=== PATIENT | male | born 1955 | race Caucasian/White ===

== ENCOUNTER 2017-10-21 19:54 | Inpatient (IN) | payer MEDICARE, OTHER ==
[~2017-10-21] VITALS: Ht 175.3 cm; Wt 121.0 kg
[2017-10-21 21:30] VITALS: BP 131/62; PULSE 86; RESP 18; TEMP 97.7; O2SAT 99
[2017-10-21] MEDS ORDERED: SODIUM CHLORIDE 0.9% FLUSH 10 ML FLUSH IV FLUSH PRN (22:00)
[2017-10-21] MEDS ORDERED: DEXTROSE 50% IN WATER 50 ML VIAL(D50) IV PUSH PRN ×2 (22:00→23:15)
[2017-10-21] MEDS ORDERED: GLUCAGON 1 MG/ML VIAL OTHER PRN ×2 (22:00→23:15)
[2017-10-21] MEDS ORDERED: SODIUM CHLOR 0.9% 250 ML INJ 250 ML IV ONE (22:00)
[2017-10-21 22:13] VITALS: PULSE 81
[2017-10-21] MEDS ORDERED: ONDANSETRON HCL 4 MG/2 ML VIAL IVP PRN (22:15)
[2017-10-21] MEDS ORDERED: NALOXONE HCL 0.4 MG/ML AMP IV PUSH PRN (22:15)
[2017-10-21] MEDS ORDERED: METF500T PO (22:30)
[2017-10-21] MEDS ORDERED: CEPH500C PO (22:30)
[2017-10-21] MEDS ORDERED: HUMIBIDDM PO (22:44)
[2017-10-21] MEDS ORDERED: DIPH25CA PO (22:44)
[2017-10-21] MEDS ORDERED: FISHCAP4 PO (22:44)
[2017-10-21] MEDS ORDERED: SIMV20TA PO (22:44)
[2017-10-21] MEDS ORDERED: COLA100C5 PO (22:44)
[2017-10-21] MEDS ORDERED: ASPI-147 PO (22:44)
[2017-10-21] MEDS ORDERED: TAMS0.4C4 (22:44)
[2017-10-21] MEDS ORDERED: LOSA25TA PO (22:44)
[2017-10-21] MEDS ORDERED: GLIP5TAB8 PO (22:44)
[2017-10-21] MEDS ORDERED: CENTCHW4 CHEW (22:44)
[2017-10-21] MEDS ORDERED: SITA50 PO (22:44)
[2017-10-21] MEDS ORDERED: ALEV220T14 PO (22:44)
[2017-10-21 22:59] LABS: HEMATOCRIT 21.1 % (39.0-51.0); HEMOGLOBIN 7.5 GM/DL (13.0-17.0)
[2017-10-21] MEDS ORDERED: ENALAPRILAT 2.5 MG/2 ML VIAL IV PUSH PRN (23:15)
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
[2017-10-21 23:21] LABS: TROPONIN I 7.5 NG/ML (0.02-0.05)
[2017-10-21] MEDS: PANTOPRAZOLE INJ 80 MG in SODIUM CHLORIDE 0.9% INJ 100 ML IV SCH (23:49)
[2017-10-22] VITALS (27 sets, daily range): BP systolic 108–139; BP diastolic 48–81; PULSE 76–93; RESP 16–22; TEMP 97.7–98.7; O2SAT 95–99
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
[2017-10-22] MEDS: FUROSEMIDE 20 MG/2 ML VIAL IV PUSH PRN ×2 (03:57→07:55)
[2017-10-22 04:53] LABS: ALBUMIN 2.9 GM/DL (3.4-5.0); ALKALINE PHOSPHATASE 47 U/L (45-117); ALT (GPT) 20 U/L (12-78); AST (GOT) 42 U/L (15-37); BLOOD UREA NITROGEN 17 MG/DL (7-18); CALCIUM 9.6 MG/DL (8.5-10.1); CHLORIDE 87 MEQ/L (98-107); CREATININE 0.62 MG/DL (0.60-1.30); GLOMERULAR FILTRATION RATE 132 ML/MIN (>89); GLUCOSE,RANDOM 120 MG/DL (74-106); TOTAL BILIRUBIN ADULT 0.6 MG/DL (0.2-1.0); TOTAL PROTEIN 5.7 GM/DL (6.4-8.2)
[2017-10-22 04:59] LABS: SODIUM (NA) 123 MEQ/L (136-145)
[2017-10-22] MEDS: INSULIN ASPART SUPPLEMENTAL SCALE SQ SCH ×4 (08:00→21:37)
[2017-10-22] MEDS: PANTOPRAZOLE INJ 80 MG in SODIUM CHLORIDE 0.9% INJ 100 ML IV SCH ×2 (08:12→19:37)
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
[2017-10-22] MEDS: SODIUM CHLORIDE 0.9% FLUSH 10 ML FLUSH IV FLUSH SCH ×2 (09:00→21:36)
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
[2017-10-22 15:13] LABS: AUTOMATED NEUTROPHIL # 8.1 TH/MM3 (1.8-7.7); BASOPHIL % 0.3 % (0.0-2.0); EOSINOPHIL # 0.2 TH/MM3 (0-0.4); EOSINOPHIL % 2.1 % (0.0-4.0); HEMATOCRIT 27.9 % (39.0-51.0); HEMOGLOBIN 9.8 GM/DL (13.0-17.0); LYMPH % 21.1 % (9.0-44.0); LYMPHOCYTE # 2.5 TH/MM3 (1.0-4.8); MEAN CELL VOLUME 84.6 FL (80.0-100.0); MEAN CORPUSCULAR HEMOGLOBIN 29.8 PG (27.0-34.0); MEAN CORPUSCULAR HGB CONC 35.2 % (32.0-36.0); MEAN PLATELET VOLUME 8.9 FL (7.0-11.0); MONO % 8.6 % (0.0-8.0); NEUT % 67.9 % (16.0-70.0); PLATELET COUNT 207 TH/MM3 (150-450); RED CELL DISTRIBUTION WIDTH 13.4 % (11.6-17.2)
--- NOTE | 2017-10-22 16:09 | EKG ---
Date Performed: 10/22/2017 Time Performed: 04:58:32 PTAGE: 62 years EKG: Sinus arrhythmia. Left axis deviation RBBB with left anterior fascicular block Low QRS volt ages in limb leads Abnormal ECG Since the prior tracing, there has been no significant change PREVIOUS TRACING : 10/21/2017 22.31 DOCTOR: Deborah Ortega Interpretating Date/Time 10/22/2017 16:08:07
--- NOTE | 2017-10-22 16:09 | EKG ---
Date Performed: 10/21/2017 Time Performed: 22:31:06 PTAGE: 62 years EKG: Sinus rhythm MARKED RIGHT AXIS DEVIATION RIGHT BUNDLE BRANCH BLOCK ABNORMAL ECG Since the prior tracing, there negro s been no significant change NO PREVIOUS TRACING DOCTOR: Deborah Ortega Interpretating Date/Time 10/22/2017 16:07:56
[2017-10-22] MEDS: MORPHINE SULFATE 4 MG/ML INJ IV PUSH PRN (21:38)
[2017-10-23] VITALS (12 sets, daily range): BP systolic 123–143; BP diastolic 44–78; PULSE 70–106; RESP 18–20; TEMP 97.3–98.3; O2SAT 94–98
[2017-10-23 00:39] LABS: HEMATOCRIT 28.2 % (39.0-51.0); HEMOGLOBIN 10.1 GM/DL (13.0-17.0)
[2017-10-23] MEDS: PANTOPRAZOLE INJ 80 MG in SODIUM CHLORIDE 0.9% INJ 100 ML IV SCH ×2 (05:07→15:40)
[2017-10-23 05:15] LABS: BICARBONATE 30.2 MEQ/L (21.0-32.0); CALCIUM 8.3 MG/DL (8.5-10.1); CREATININE 0.7 MG/DL (0.60-1.30); MAGNESIUM 1.7 MG/DL (1.5-2.5); PHOSPHORUS 3.5 MG/DL (2.5-4.9)
[2017-10-23] MEDS: INSULIN ASPART SUPPLEMENTAL SCALE SQ SCH ×4 (08:00→21:01)
--- NOTE | 2017-10-23 08:25 | PD.CARD.PN ---
Subjective Subjective Remarks RN at bedside. No further bleeding and epigastric pain is improving. Patient denies any chest pain, shortness breath, or palpitations. Objective Medications Current Medications Medications (Trade) Dose Ordered Sig/Ada Route Start Time Stop Time Status Last Admin (NS Flush) 2 ml UNSCH PRN IV FLUSH 10/21/17 22:00 (NS Flush) 2 ml BID IV FLUSH 10/22/17 09:00 10/22/17 21:36 Pantoprazole Sodium 80 mg/ Sodium Chloride 100 ml @ 10 mls/hr Q10H IV 10/22/17 00:00 10/23/17 05:07 (Zofran Inj) 4 mg Q6H PRN IVP 10/21/17 22:15 (Narcan Inj) 0.4 mg UNSCH PRN IV PUSH 10/21/17 22:15 (D50w (Vial) Inj) 50 ml UNSCH PRN IV PUSH 10/21/17 23:15 (Glucagon Inj) 1 mg UNSCH PRN OTHER 10/21/17 23:15 (NovoLOG SUPPLEMENTAL SCALE) 1 ACHS SLIDING SCALE SQ 10/22/17 08:00 10/22/17 21:37 (Morphine Inj) 4 mg Q3H PRN IV PUSH 10/21/17 23:15 10/22/17 21:38 (Vasotec Inj) 2.5 mg Q6H PRN IV PUSH 10/21/17 23:15 Vital Signs / I&O Vital Signs Date Time Temp Pulse Resp B/P (MAP) Pulse Ox O2 Delivery O2 Flow Rate FiO2 10/23/17 04:00 97.8 91 20 141/75 (97) 94 10/23/17 03:45 94 Room Air 10/23/17 03:30 84 10/23/17 00:00 98.1 92 20 123/44 (70) 95 10/22/17 23:00 94 Room Air 10/22/17 23:00 84 10/22/17 22:38 95 21 10/22/17 22:00 18 10/22/17 20:00 98.4 92 20 114/48 (70) 95 10/22/17 19:00 84 10/22/17 15:07 99 Nasal Cannula 2.00 10/22/17 15:06 84 10/22/17 15:05 97.7 84 22 126/62 (83) 99 10/22/17 11:00 99 Nasal Cannula 2.00 10/22/17 11:00 93 10/22/17 11:00 97.9 93 22 111/56 (74) 99 I/O 10/22/17 10/22/17 10/22/17 10/23/17 10/23/17 10/23/17 06:59 14:59 22:59 06:59 14:59 22:59 Intake Total 470 ml 830 ml 1250 ml 458 ml Output Total 700 ml 2925 ml 2500 ml Balance -230 ml 830 ml -1675 ml -2042 ml Intake Oral 0 ml 1000 ml 240 ml IV Total 70 ml 250 ml 218 ml Packed Cells 400 ml 800 ml Blood Product IV Normal Saline Flush 30 ml Output Urine Total 700 ml 2925 ml 2500 ml # Voids 1 5 # Bowel Movements 0 0 1 Physical Exam GENERAL: Well-developed well-nourished. In no acute distress. NECK: No carotid bruits. No JVD. CARDIOVASCULAR: Regular rate and rhythm. No murmur appreciated. RESPIRATORY: No accessory muscle use. Clear to auscultation. Breath sounds equal bilaterally. MUSCULOSKELETAL: Right ankle with clean dressing. No edema. NEUROLOGICAL: Awake and alert. Normal speech. Laboratory Laboratory Tests Test 10/22/17 14:35 10/23/17 00:00 10/23/17 03:34 White Blood Count 12.0 TH/MM3 Red Blood Count 3.30 MIL/MM3 Hemoglobin 9.8 GM/DL 10.1 GM/DL Hematocrit 27.9 % 28.2 % Mean Corpuscular Volume 84.6 FL Mean Corpuscular Hemoglobin 29.8 PG Mean Corpuscular Hemoglobin Concent 35.2 % Red Cell Distribution Width 13.4 % Platelet Count 207 TH/MM3 Mean Platelet Volume 8.9 FL Neutrophils (%) (Auto) 67.9 % Lymphocytes (%) (Auto) 21.1 % Monocytes (%) (Auto) 8.6 % Eosinophils (%) (Auto) 2.1 % Basophils (%) (Auto) 0.3 % Neutrophils # (Auto) 8.1 TH/MM3 Lymphocytes # (Auto) 2.5 TH/MM3 Monocytes # (Auto) 1.0 TH/MM3 Eosinophils # (Auto) 0.2 TH/MM3 Basophils # (Auto) 0.0 TH/MM3 CBC Comment DIFF FINAL Differential Comment Blood Urea Nitrogen 10 MG/DL Creatinine 0.70 MG/DL Random Glucose 134 MG/DL Calcium Level 8.3 MG/DL Phosphorus Level 3.5 MG/DL Magnesium Level 1.7 MG/DL Sodium Level 132 MEQ/L Potassium Level 3.4 MEQ/L Chloride Level 95 MEQ/L Carbon Dioxide Level 30.2 MEQ/L Anion Gap 7 MEQ/L Estimat Glomerular Filtration Rate 115 ML/MIN Assessment and Plan Assessment and Plan 62-year-old male with a past medical history significant for coronary artery disease (status post cardiac catheterization at [facility] 3 -6 months ago with finding of obstructive coronary disease that was not amenable to intervention), diabetes mellitus, hyperlipidemia, hypertension and history of colon cancer. The patient states he presented to the hospital because his "GI track was on fire", epigastric pain, hematemesis. NSTEMI: significant trop elevation in setting of severe anemia and GIB. No point in proceeding with LHC until after the endoscopy since we know he has obstructive CAD but would not be a candidate for CABG or PCI until bleeding source identified. 2d echo probable LHC once bleeding issue resolved. Epigastric pain/hematemesis/anemia: Transfused 3 units PRBCs and hemoglobin improved to 10. GI on board. His hemoglobin is greater than 9 and no chest pain, patient is cleared from cardiology perspective to proceed with endoscopy. CAD: Sounds obstructive by history, records pending. Hold aspirin with bleeding. Continue statin. Luis Potter Oct 23, 2017 08:25
--- NOTE | 2017-10-23 08:55 | HHI.CCPN ---
Subjective Remarks/Hospital Course 62-year-old male with a past medical history significant for coronary artery disease (status post cardiac catheterization at [facility] 3 months ago with finding of obstructive coronary disease without possibility of stent intervention), and other comorbidities including diabetes mellitus, hyperlipidemia,hypertension and history of colon cancer presents today for evaluation of epigastric. The patient describes the pain as a burning that started in his epigastrium and travels up the center of his chest. He denies any chest pressure. He does endorse shortness of breath and diaphoresis today. He however tells me that his major complaint was gastrointestinal discomfort including nausea with coffee ground emesis and dark, tarry stools for approximately 2 days. Positive fever/chills. Denies weakness/lightheadedness. His initial hemoglobin was found to be 7.5 and troponin 2.17. He was initially admitted to medical surgical floor with telemetry, however his follow- up troponin has increased to 7.5, and due to complexity of the condition including gastrointestinal bleed, severe anemia, and significantly elevated troponins, the patient is transferred to critical care service. Subjective: 10/23: No acute events overnight patient denies chest pain greater than 24 hours. No hematemesis or melena during the night. Patient scheduled for EGD this afternoon. Patient tolerated yesterday a clear liquid diet but remains nothing by mouth for procedure today. Patient upon admission was noted to be hyponatremic, sodium level improved in the last 24 hours, at a calculated 0.5 mEq per hour. Sodium level now 132, from 123. Objective Vital Signs Date Time Temp Pulse Resp B/P (MAP) Pulse Ox O2 Delivery O2 Flow Rate FiO2 10/23/17 04:00 97.8 91 20 141/75 (97) 94 10/23/17 03:45 Room Air 10/22/17 22:38 21 10/22/17 15:07 2.00 Intake and Output 10/23/17 10/23/17 10/24/17 08:00 16:00 00:00 Intake Total 458 ml Output Total 2500 ml Balance -2042 ml Result Diagram: 10/23/17 0000 10/23/17 0334 Objective Remarks GENERAL: This is a well-developed well-nourished obese male, in no apparent distress SKIN: Warm and dry. HEAD: Normocephalic. EYES: No scleral icterus. No injection or drainage. NECK: Supple, trachea midline. No JVD or lymphadenopathy. CARDIOVASCULAR: Regular rate and rhythm without murmurs, gallops, or rubs. RESPIRATORY: Breath sounds equal bilaterally. No accessory muscle use. GASTROINTESTINAL: Abdomen soft, non-tender, protuberant nondistended. MUSCULOSKELETAL: No cyanosis, or edema.Raudel bandage right lower extremity. Patient receiving wound care at home BACK: Nontender without obvious deformity. NEURO EXAM: GCS: 15 Mental Status: The patient is alert and oriented to person, place, and time with normal speech. Procedures 10/23-EGD A/P Assessment and Plan Upper GI bleed - hematemesis and H&H of 7.5/21.5 - Protonix drip - Gastroenterology consultation - Serial H&H - Transfuse 3 units of PRBCs with the goal to keep hemoglobin close to 10 at the patient with active GI bleed and symptomatic coronary artery disease NSTEMI - Known history of obstructive coronary artery disease from the cardiac catheterization at [facility] 3 months ago - see records in chart - Initial troponin 2.17 - Follow-up troponin 7.5 - EKG significant for sinus tachycardia with right bundle branch block - Unable to initiate anticoagulation or antiplatelet therapy due to active GI bleed and severe anemia - Transfuse PRBCs with the Goal hemoglobin 10 - 2-D echo - Cardiology consultation- Dr. Francisco Diabetes mellitus - Hold metformin while in the ICU - Insulin sliding scale Electrolyte derangement - Hyponatremia initial admission sodium level 123, now increased to 132 in 24 hours, continue to monitor Hypertension - Vasotec when necessary DVT GI prophylaxis - Teds SCDs - No pharmacological DVT prophylaxis due to GI bleed - Protonix drip Critical Care: Level II follow-up Plan transfer to CICU when bed available. Plan transfer to [facility] Hospitalist Physician Evita Blake MD Oct 23, 2017 08:55
[2017-10-23] MEDS: SODIUM CHLORIDE 0.9% FLUSH 10 ML FLUSH IV FLUSH SCH ×2 (09:00→21:00)
[2017-10-23] MEDS ORDERED: LACTATED RINGER'S 1000 ML INJ 1,000 ML IV ONE (12:00)
[2017-10-23] MEDS ORDERED: LIDOCAINE HCL 1% PF 5 ML SYRINGE OTHER ONE (12:00)
[2017-10-23] MEDS ORDERED: PROPOFOL 200 MG/20 ML AMP IV ONE (12:00)
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
[2017-10-23 14:40] LABS: HEMATOCRIT 31.2 % (39.0-51.0); HEMOGLOBIN 10.8 GM/DL (13.0-17.0)
--- NOTE | 2017-10-23 18:45 | GIPROC ---
[facility] [address] [facility]. [facility], [address] EGD PROCEDURE REPORT EXAM DATE: 10/23/2017 PATIENT NAME: Mateus Freed MR #: [id number] BIRTHDATE: 1955 ATTENDING: Sulma Kessler MD ORDER #: [id number] ENGINEERING EXECUTIVE: Alex Ivy and Lea Cuevas STATUS: inpatient INDICATIONS: The patient is a 62 yr old male here for an EGD due to anemia, gi bleeding PROCEDURE PERFORMED: EGD w/ biopsy MEDICATIONS: None and Per Anesthesia. TOPICAL ANESTHETIC: none CONSENT: The patient understands the risks and benefits of the procedure and understands that these risks include, but are not limited to: sedation, allergic reaction, infection, perforation and/or bleeding. Alternative means of evaluation and treatment include, among others: physical exam, x-rays, and/or surgical intervention. The patient elects to proceed with this endoscopic procedure. medical equipment was checked for proper function. Hand hygiene and appropriate measures for infection prevention was taken. After the risks, benefits and alternatives of the procedure were thoroughly explained, Informed consent was verified, confirmed and timeout was successfully executed by the treatment team. The patient was anesthetized with topical anesthesia and the Pentax [id number] endoscope was introduced through the mouth and advanced to the second portion of the duodenum. Retroflexed views revealed a hiatal hernia The gastroscope was then slowly withdrawn and removed. Ulcers antrum-three- clean base 8 mm, 6 mm and 4 mm biopsy from antrum/body to r/o H.pylori. ADVERSE EVENTS: There were no complications. IMPRESSIONS: 1. Ulcers antrum-three- clean base 8 mm, 6 mm and 4 mm biopsy from antrum/body to r/o H.pylori 2. Retroflexed views revealed a hiatal hernia RECOMMENDATIONS: 1. Await biopsy results. Biopsy results will not be ready for 7-10 days. If you don't hear from us in two weeks, call our office for biopsy results. 2. Anti-reflux regimen 3. Continue PPI 4. Avoid NSAIDS PATIENT CONDITION: stable DISPOSITION: Inpatient REPEAT EXAM: Return 8 weeks EGD Sulma Kessler MD eSigned: Sulma Kessler MD 10/23/2017 6:45 PM cc:
[2017-10-23] MEDS ORDERED: DO NOT ADM ANY ANTICOAGULANT DRUGS PRN (18:50)
--- NOTE | 2017-10-23 20:12 | RADRPT ---
EXAM DATE/TIME: 10/23/2017 19:35 [place] COMPARISON: No previous studies available for comparison. INDICATIONS : Pain in right foot. MEDICAL HISTORY : None. SURGICAL HISTORY : Tibial keisha. ENCOUNTER: Initial ACUITY: 1 day PAIN SCORE: 5/10 LOCATION: Right foot FINDINGS: There is evidence of previous internal fixation and fusion across the ankle joint. The hardware is gr ossly intact. There is degenerative changes involving the midtarsal bones. There is an old healed fra cture involving the fifth metatarsal. There are probable old healed fractures involving the base of t he third and fourth metatarsals. There are some degenerative changes involving the first metatarsopha langeal joint, PIP and DIP joints. No acute fracture or joint dislocation is seen. Soft tissues are g rossly unremarkable. No foreign bodies are demonstrated. CONCLUSION: Chronic changes of the right foot. Harinder Morris MD on October 23, 2017 at 20:07 Board Certified Radiologist. This report was verified electronically.
[2017-10-23] MEDS: PANTOPRAZOLE SOD 40 MG DELAYED RELEASE TAB PO SCH (21:01)
[2017-10-24] VITALS (26 sets, daily range): BP systolic 125–142; BP diastolic 70–75; PULSE 74–109; RESP 16–19; TEMP 98–98.8; O2SAT 96–98
[2017-10-24 01:53] LABS: HEMATOCRIT 31.8 % (39.0-51.0); HEMOGLOBIN 10.8 GM/DL (13.0-17.0)
[2017-10-24] MEDS: SUCRALFATE 1 GM TAB PO SCH ×2 (05:38→17:25)
[2017-10-24 05:52] LABS: HEMATOCRIT 33.3 % (39.0-51.0); HEMOGLOBIN 11.2 GM/DL (13.0-17.0); MEAN CELL VOLUME 86.6 FL (80.0-100.0); MEAN CORPUSCULAR HEMOGLOBIN 29.2 PG (27.0-34.0); MEAN CORPUSCULAR HGB CONC 33.7 % (32.0-36.0); MEAN PLATELET VOLUME 8.4 FL (7.0-11.0); PLATELET COUNT 282 TH/MM3 (150-450); RED BLOOD COUNT 3.84 MIL/MM3 (4.50-5.90); RED CELL DISTRIBUTION WIDTH 14.5 % (11.6-17.2); WHITE BLOOD COUNT 11.1 TH/MM3 (4.0-11.0)
[2017-10-24 06:01] LABS: BICARBONATE 28.7 MEQ/L (21.0-32.0); CALCIUM 8.9 MG/DL (8.5-10.1); CREATININE 0.79 MG/DL (0.60-1.30); MAGNESIUM 2.2 MG/DL (1.5-2.5); PHOSPHORUS 2.7 MG/DL (2.5-4.9)
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
[2017-10-24] MEDS: INSULIN ASPART SUPPLEMENTAL SCALE SQ SCH ×4 (08:00→20:30)
[2017-10-24] MEDS: SODIUM CHLORIDE 0.9% FLUSH 10 ML FLUSH IV FLUSH SCH ×2 (09:05→20:30)
[2017-10-24] MEDS: PANTOPRAZOLE SOD 40 MG DELAYED RELEASE TAB PO SCH ×2 (09:05→20:30)
[2017-10-24] MEDS: MORPHINE SULFATE 4 MG/ML INJ IV PUSH PRN (09:06)
--- NOTE | 2017-10-24 10:51 | ECHRPT ---
Indication: CORONARY ATHEROSCLEROSIS CONCLUSIONS The left ventricular systolic function is normal with an estimated ejection fraction in the range of 55-60%. Trace mitral valve regurgitation. BP: 117 / 67 HR: 76 Rhythm: Sinus MEASUREMENTS (Male / Female) Normal Values Technical Quality:Fair 2D ECHO LVOT Diameter 2.0 cm LV Ejection Fraction MOD 4C 54.0 % LV Cardiac Index MOD 4C 1624.7 cm/minm LV Ejection Fraction 4C AL 57.3 % LV Cardiac Index 4C AL 1783.5 cm/minm DOPPLER AV Peak Velocity 140.0 cm/s AV Peak Gradient 7.8 mmHg LVOT Peak Velocity 132.0 cm/s LVOT Peak Gradient 7.0 mmHg AV Area Cont Eq pk 3.0 cm MV Area PHT 3.7 cm Mitral E Point Velocity 119.0 cm/s Mitral A Point Velocity 110.0 cm/s Mitral E to A Ratio 1.1 LV E' Lateral Velocity 10.6 cm/s Mitral E to LV E' Lateral Ratio 11.2 LV E' Septal Velocity 4.5 cm/s Mitral E to LV E' Septal Ratio 26.6 PV Peak Velocity 88.2 cm/s PV Peak Gradient 3.1 mmHg FINDINGS LEFT VENTRICLE Normal left ventricular size and wall thickness. The left ventricular systolic function is normal wi th an estimated ejection fraction in the range of 60-65%. Left ventricular diastolic function parameters a re normal. RIGHT VENTRICLE Normal right ventricular size and systolic function. LEFT ATRIUM The left atrial size is normal. RIGHT ATRIUM The right atrial size is normal. ATRIAL SEPTUM Normal atrial septal thickness without atrial level shunting by limited color doppler interrogation. AORTA The aortic root and proximal ascending aorta are normal in size on limited imaging. MITRAL VALVE Trace mitral valve regurgitation. AORTIC VALVE Trileaflet aortic valve. No aortic valve stenosis or regurgitation. TRICUSPID VALVE Structurally normal tricuspid valve. No tricuspid valve stenosis or regurgitation. PULMONARY VALVE The pulmonary valve is not well visualized. VESSELS The inferior vena cava is normal in size. PERICARDIUM No pericardial effusion. Eber Francisco MD, FACC (Electronically Signed) Final Date:24 October 2017 10:50
--- NOTE | 2017-10-24 12:56 | HHI.GIFU ---
Subjective Remarks Pt resting in bed, ordering lunch. Denies bleeding, GI complaints. (Abigail Green) Objective Vitals I&O Vital Signs Date Time Temp Pulse Resp B/P (MAP) Pulse Ox O2 Delivery O2 Flow Rate FiO2 10/24/17 12:00 86 10/24/17 11:00 90 10/24/17 11:00 98 Room Air 10/24/17 11:00 98.0 87 19 135/70 (91) 98 10/24/17 10:00 97 10/24/17 09:39 19 10/24/17 09:00 92 10/24/17 08:00 88 10/24/17 08:00 96 Room Air 10/24/17 07:15 98.3 87 16 128/75 (92) 96 10/24/17 07:15 84 10/24/17 06:07 88 10/24/17 04:50 86 10/24/17 04:38 98.4 88 142/70 (94) 98 10/24/17 03:06 Room Air 10/24/17 03:00 86 10/24/17 02:00 90 10/24/17 01:00 90 10/24/17 00:20 98.7 97 125/71 (89) 96 10/24/17 00:00 100 10/23/17 23:11 Room Air 10/23/17 23:00 103 10/23/17 22:00 104 10/23/17 21:00 104 10/23/17 20:00 88 10/23/17 19:15 85 16 122/59 (80) 98 2 10/23/17 19:00 81 16 123/57 (79) 98 2 10/23/17 19:00 Room Air 2.00 10/23/17 19:00 106 10/23/17 19:00 97.3 92 143/78 (99) 97 10/23/17 18:50 98 Nasal Cannula 2.00 10/23/17 18:50 98.8 81 16 122/65 (84) 98 2 10/23/17 17:03 94 Room Air 10/23/17 16:00 98.0 89 18 138/77 (97) 97 I/O 10/23/17 10/23/17 10/23/17 10/24/17 10/24/17 10/24/17 07:00 15:00 23:00 07:00 15:00 23:00 Intake Total 458 ml 100 ml 240 ml Output Total 2500 ml 800 ml 900 ml Balance -2042 ml -800 ml 100 ml -660 ml Intake Oral 240 ml 240 ml IV Total 218 ml Other 100 ml Output Urine Total 2500 ml 800 ml 900 ml # Bowel Movements 1 Laboratory Laboratory Tests Test 10/23/17 14:00 10/24/17 01:45 10/24/17 04:50 Hemoglobin 10.8 10.8 11.2 Hematocrit 31.2 31.8 33.3 White Blood Count 11.1 Red Blood Count 3.84 Mean Corpuscular Volume 86.6 Mean Corpuscular Hemoglobin 29.2 Mean Corpuscular Hemoglobin Concent 33.7 Red Cell Distribution Width 14.5 Platelet Count 282 Mean Platelet Volume 8.4 Blood Urea Nitrogen 11 Creatinine 0.79 Random Glucose 182 Calcium Level 8.9 Phosphorus Level 2.7 Magnesium Level 2.2 Sodium Level 135 Potassium Level 3.7 Chloride Level 100 Carbon Dioxide Level 28.7 Anion Gap 6 Estimat Glomerular Filtration Rate 100 Date/Time Source Procedure Growth Status 10/23/17 11:45 Wound Ankle Gram Stain - Final Resulted 10/23/17 11:45 Wound Ankle Wound Culture Pending Resulted Imaging Last Impressions Foot X-Ray 10/23/17 0000 Signed Impressions: Service Date/Time: Monday, October 23, 2017 19:35 - CONCLUSION: Chronic changes of the right foot. Harinder Morris MD Physical Exam HEENT: PERRL; normocephalic; atraumatic; no jaundice. CHEST: CTA CARDIAC: irregular HR ABDOMEN: Soft, protuberant, nontender; no hepatosplenomegaly; bowel sounds are present in all four quadrants. EXTREMITIES: No clubbing, cyanosis, or edema. young bandage right foot SKIN: Normal; no rash; no jaundice. 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 (Abigail Green) Assessment and Plan Plan ASSESSMENT - coffee ground emesis, melanotic stool - prob UGIB. has hx gastric ulcers per EGD long time ago. has been on plavix - anemia - hgb 7.5 on admission, normocytic. likely 2/2 above. last colonoscopy 2 y ago and diagnosed with colon ca - CAD, elevated troponin - per cardiology. he will be clear for endoscopy when his hgb is >9 10/24/17 s/p EGD found 3 x clean based ulcers, hiatal hernia, biopsies are pending. pt doing well today tolerating diet, HH improved PLAN - await bx - heart healthy diet - monitor HH - BID PPI - EGD in 8 weeks pt seen by myself and Dr Kessler and this note is written on her behalf (Abigail Green) Physician Comments seen, examined agree with above ok for anticoagulation from gi point avoid nsaids egd/colonoscopy 8 weeks-will need cardiac clearance avoid additionally nsaids and etoh gi will sign off (Sulma Kessler MD) Abigail Green Oct 24, 2017 12:56 Sulma Kessler MD Oct 24, 2017 16:25
--- NOTE | 2017-10-24 14:19 | HHI.PR ---
Subjective Remarks Patient has no new complaints when seen. Hemoglobin is remaining relatively stable. Cardiothoracic surgery evaluation is pending. Based on patient's reports a previous history she may need a bypass surgery, current evaluation in process. Objective Vital Signs Date Time Temp Pulse Resp B/P (MAP) Pulse Ox O2 Delivery O2 Flow Rate FiO2 10/24/17 13:00 95 10/24/17 12:00 86 10/24/17 11:00 90 10/24/17 11:00 98 Room Air 10/24/17 11:00 98.0 87 19 135/70 (91) 98 10/24/17 10:00 97 10/24/17 09:39 19 10/24/17 09:00 92 10/24/17 08:00 88 10/24/17 08:00 96 Room Air 10/24/17 07:15 98.3 87 16 128/75 (92) 96 10/24/17 07:15 84 10/24/17 06:07 88 10/24/17 04:50 86 10/24/17 04:38 98.4 88 142/70 (94) 98 10/24/17 03:06 Room Air 10/24/17 03:00 86 10/24/17 02:00 90 10/24/17 01:00 90 10/24/17 00:20 98.7 97 125/71 (89) 96 10/24/17 00:00 100 10/23/17 23:11 Room Air 10/23/17 23:00 103 10/23/17 22:00 104 10/23/17 21:00 104 10/23/17 20:00 88 10/23/17 19:15 85 16 122/59 (80) 98 2 10/23/17 19:00 81 16 123/57 (79) 98 2 10/23/17 19:00 Room Air 2.00 10/23/17 19:00 106 10/23/17 19:00 97.3 92 143/78 (99) 97 10/23/17 18:50 98 Nasal Cannula 2.00 10/23/17 18:50 98.8 81 16 122/65 (84) 98 2 10/23/17 17:03 94 Room Air 10/23/17 16:00 98.0 89 18 138/77 (97) 97 I/O 2/04/0210/23/17 10/23/17 10/24/17 10/24/17 10/24/17 07:00 15:00 23:00 07:00 15:00 23:00 Intake Total 458 ml 100 ml 240 ml Output Total 2500 ml 800 ml 900 ml Balance -2042 ml -800 ml 100 ml -660 ml Intake Oral 240 ml 240 ml IV Total 218 ml Other 100 ml Output Urine Total 2500 ml 800 ml 900 ml # Bowel Movements 1 Result Diagram: 10/24/1744910/24/17449 Objective Remarks GENERAL: NAD, A&Ox3 HEAD: Normocephalic. NECK: Supple, trachea midline. No lymphadenopathy. EYES: No scleral icterus. No injection or drainage. CARDIOVASCULAR: Regular rate and rhythm without murmurs, gallops, or rubs. RESPIRATORY: Breath sounds equal bilaterally. No accessory muscle use. GASTROINTESTINAL: Abdomen soft, non-tender, nondistended. MUSCULOSKELETAL: No cyanosis, or edema. Right leg is bandaged. Limited range of motion at left ankle. SKIN: Warm and dry. NEURO: No focal neurological deficitis. A/P Problem List: (1) Non-STEMI (non-ST elevated myocardial infarction) ICD Code: I21.4 - Non-ST elevation (NSTEMI) myocardial infarction (2) Cardiovascular disease ICD Code: I25.10 - Atherosclerotic heart disease of [place] coronary artery without angina pectoris (3) Coronary artery disease ICD Code: I25.10 - Atherosclerotic heart disease of [place] coronary artery without angina pectoris (4) GI bleed ICD Code: K92.2 - Gastrointestinal hemorrhage, unspecified Assessment and Plan 62-year-old male admitted secondary to upper GI bleed with subsequent NSTEMI Upper GI bleed This appears to have stabilized Continue to monitor H&H Continue protonic strip GI following NSTEMI Known coronary artery disease Previous outpatient plan for potential bypass surgery Cardiology following Cartia thoracic surgery following Etiology likely related to anemia Patient reports no chest pain today Follow clinically for chest pain Further cardiac workup in process Diabetes mellitus type 2 Follow blood sugars Insulin sliding scale Diabetic diet Hyponatremia Follow sodium levels Hypertension Continue baseline treatment Follow blood pressures Adjust treatments as needed Vasotec when necessary DVT prophylaxis SCDs No anticoagulation due to bleeding Gio Solitario MD Oct 24, 2017 14:19
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
[2017-10-24] MEDS ORDERED: Vancomycin Consult Pharmacy 1 EA OTHER SCH (18:30)
[2017-10-24] MEDS ORDERED: VANCOMYCIN INJ 1,000 MG in SODIUM CHLOR 0.9% 250 ML INJ 250 ML IV SCH (18:30)
[2017-10-24] MEDS ORDERED: VANCOMYCIN INJ 2,000 MG in SODIUM CHLORID 0.9% 500 ML INJ 500 ML IV ONE (21:00)
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
[2017-10-25] VITALS (22 sets, daily range): BP systolic 113–148; BP diastolic 34–85; PULSE 78–102; RESP 16–19; TEMP 97.2–98.3; O2SAT 95–97
[2017-10-25] MEDS: SUCRALFATE 1 GM TAB PO SCH ×2 (05:50→15:28)
[2017-10-25 06:36] LABS: AUTOMATED NEUTROPHIL # 8.3 TH/MM3 (1.8-7.7); BASOPHIL % 0.3 % (0.0-2.0); EOSINOPHIL # 0.5 TH/MM3 (0-0.4); EOSINOPHIL % 3.6 % (0.0-4.0); HEMATOCRIT 34.6 % (39.0-51.0); HEMOGLOBIN 11.7 GM/DL (13.0-17.0); LYMPHOCYTE # 2.8 TH/MM3 (1.0-4.8); MEAN CELL VOLUME 87.6 FL (80.0-100.0); MEAN CORPUSCULAR HEMOGLOBIN 29.6 PG (27.0-34.0); MEAN CORPUSCULAR HGB CONC 33.8 % (32.0-36.0); MEAN PLATELET VOLUME 8.2 FL (7.0-11.0); MONO % 7.9 % (0.0-8.0); NEUT % 66.2 % (16.0-70.0); PLATELET COUNT 337 TH/MM3 (150-450); RED BLOOD COUNT 3.95 MIL/MM3 (4.50-5.90); WHITE BLOOD COUNT 12.6 TH/MM3 (4.0-11.0)
[2017-10-25 07:03] LABS: ALBUMIN 3.4 GM/DL (3.4-5.0); ALT (GPT) 24 U/L (12-78); AST (GOT) 17 U/L (15-37); BICARBONATE 31.2 MEQ/L (21.0-32.0); BLOOD UREA NITROGEN 10 MG/DL (7-18); CALCIUM 8.4 MG/DL (8.5-10.1); CHLORIDE 100 MEQ/L (98-107); GLOMERULAR FILTRATION RATE 98 ML/MIN (>89); GLUCOSE,RANDOM 179 MG/DL (74-106); SODIUM (NA) 137 MEQ/L (136-145)
[2017-10-25 07:05] LABS: ALKALINE PHOSPHATASE 67 U/L (45-117); TOTAL BILIRUBIN ADULT 0.5 MG/DL (0.2-1.0); TOTAL PROTEIN 7.4 GM/DL (6.4-8.2)
[2017-10-25] MEDS: INSULIN ASPART SUPPLEMENTAL SCALE SQ SCH ×4 (08:00→20:55)
[2017-10-25] MEDS ORDERED: HEPARIN-NS/PF FLUSH BAG 2,000 ML IV FLUSH ONE (08:16)
[2017-10-25] MEDS ORDERED: NITROGLYCERIN INJ 5 ML ONE (08:16)
[2017-10-25] MEDS ORDERED: HEPARIN SODIUM - IV 10,000 UNITS/10 ML VIAL ONE (08:16)
[2017-10-25] MEDS ORDERED: MIDAZOLAM HCL 2 MG/2 ML VIAL ONE ×2 (08:19→09:25)
--- NOTE | 2017-10-25 09:44 | CATHPROC ---
[employer] HIS Report Study Information Study Number Admission Scheduled Start Study Start [id number] Oct 21 2017 9:04PM 10/25/2017 Oct 25 2017 8:16AM Nara Visa Service Cardiac Catheterization Admit Source Facility Department Emergency department [facility] - As[employer] Ring Physician and Clinical Staff Initial Eber Bunn Block Tester Fab Sahni,RN Recorder Marshall Rueda,RT(R) Scrub Abraham Garnica RCIS(BS) Procedures Performed Procedure Location (Site) Vessel Name Coronary Angiograms RCA Right Coronary Wire insertion Fem Art (right) Femoral Art Equipment Time Sanding Machine Operator Or Tender Description Size Mfg Part Number Used/Scraped COPILOT VALVE, BLEEDBACK [id number] 09:07 [employer] Used CONTROL *[id number] 09:27 [employer] WIRE, ALLYSSA FIELDER XT 300CM 300CM Used *[id number] WIRE, WHISPER W/HYDROCOAT [id number] 09:05 [employer] 300CM Used 300CM *[id number] TRANSDUCER, TRUWAVE [id number] 08:26 [employer]OZCO CHEATHAM * Used W/STOCKCOCK *[id number] *[id number] *[id number] 08:26 [employer] INDUSTRIES PACK, CCL CUSTOM * Used *[id number] 08:26 indico SUPPORT, ARTERIAL ADULT 13959 *[id number] Used [id number] 08:26 [employer]ious Business PACER PEN, SKIN DUAL W/ RULER * Used *[id number] BALLOON, 1.25 X 6MM SPRINTER [id number] 09:11 [employer] 6MM Used LEGEND OTW *[id number] 08:35 [employer] JR 5.0 DXTERITY CATHETER fr 5 [id number] Used SHEATH, FR6 RADIAL PRELUDE 08:26 [employer] MEDICAL FR 6 [id number] Used EASE 11CM [id number] 08:26 [employer] MEDICAL WIRE, EXCHANGE 260CM 3MMJ 260CM Used *[id number] 08:26 [employer]COMED OMNIPAQUE, 350 MG, 150ML 150ML [id number] Used [id number] 08:26 [employer] BLANKET,WARM AIR CCL * Used *[id number] 08:48 [employer] MEDICAL SHEATH, FR5 TERUMO (10CM) FR 5 Used *[id number] WIRE, RUNTHROUGH NS FLOPPY [id number] 09:24 [employer] MEDICAL 300CM Used .014 300CM *[id number] Equipment Model, Serial, Lot Number and Expiration Data Description Model Number Serial Number Lot Number Expiration Date JR 5.0 DXTERITY CATHETER [id number] 03-21-2020 History: Allergies Allergy Reaction No Known Allergies History: Risk Factors Family History of Hypertension Dyslipidemia Previous NE Previous Heart Failure Premature CAD Yes Yes No No No Prior Valve Prior PCI Prior CABG Surgery No No No Cerebrovascular Peripheral Artery Chronic Lung On Dialysis Diabetes Diabetes Therapy Disease Disease Disease No Yes No No Yes Oral History: Stress Tests Stress or Imaging Studies Performed No History: Other Current Smoker Method Quit Packs a Day Years Used Pack Years No Cigarettes 20 Years Ago 1 20 20 Labs Hgb (g/dl) Hct (%) WBC (l/cumm) Platelets (thousands) 11.60-17.00 35.00-51.00 4.00-11.00 150.00-450.00 11.7 34.6 12.6 337 Glucose (mg/dl) BUN (mg/dl) Creatinine (mg/dl) BUN:Creatinine (1:x) 74.00-106.00 7.00-18.00 0.50-1.30 10.00-20.00 98 10 0.8 12.5 Na (meq/l) K (meq/l) 136.00-145.00 3.50-5.10 137 3.9 CPK-MB (ng/ML) 0.50-3.60 Not Drawn Medication Medication Total Dose (Bolus/Oral) Medication Total Dosage/Unit 1% XYLOCAINE 25 mL FENTANYL 75 mcg HEPARIN 8200 units VERSED 3 mg Medications (Bolus/Oral) Medication Time Given Dosage/Unit Administered By Reason 1% XYLOCAINE 10/25/2017 8:42:50 AM 5 mL Eber Francisco Patient arrived on 5 mL 1% XYLOCAINE given by Eber Francisco in Right Wrist via Subcutaneous. Ordered by Eber Francisco. VERSED 10/25/2017 8:43:56 AM 2 mg Fab Sahni 2 mg VERSED given in lab by Fab Sahni, RN via Peripheral IV. Ordered by Eber Francisco. FENTANYL 10/25/2017 8:44:45 AM 50 mcg Fab Sahni 50 mcg FENTANYL given in lab by Fab Sahni RN via Peripheral IV. Ordered by Eber Francisco. 1% XYLOCAINE 10/25/2017 8:48:59 AM 20 mL Eber Francisco 20 mL 1% XYLOCAINE given in lab by Eber Francisco in Right Groin via Subcutaneous. Ordered by Eber Francisco. HEPARIN 10/25/2017 9:02:17 AM 8200 units Fab Sahni 8200 units HEPARIN given in lab by Fab Sahni RN in Left Antecubital via Peripheral IV. Ordered b y Eber Francisco. VERSED 10/25/2017 9:25:26 AM 1 mg Fab Sahni 1 mg VERSED given in lab by Fab Sahni RN via Peripheral IV. Ordered by Eber Francisco. FENTANYL 10/25/2017 9:26:46 AM 25 mcg Fab Sahni 25 mcg FENTANYL given in lab by Fab Sahni RN via Peripheral IV. Ordered by Eber Francisco. Medication (Drip) Medication Time Given Dosage/Unit Concentration/Unit Diluent (ml) Solution IV Solutions 10/25/2017 8:23:29 AM 0 mL (IV) 500 NaCl .9 Patient arrived on IV Solutions given by Eber Francisco in Left Antecubital via Peripheral IV. Pump/D rip Flow = 20 ml/hr using NaCl .9. Ordered by Eber Francisco. Initial Case Assessment Cardiovascular HR Rhythm NIBP Chest Pain 82 sr 151/89 0 Edema Present Skin color Skin None Normal Warm Dry Circulatory - Right Pulses Dorsalis Pedis Femoral Radial 2 2 2 Scale (0,1,2,3,4,d) Scale (0,1,2,3,4,d) Neurological State Oriented to time-place- Alert Moves all extremities person Respiration - General Respiration Rate SpO2 (%) O2 (lpm) (B/min) 18 98 0 Final Case Assessment Cardiovascular HR Rhythm NIBP Chest Pain 90 sr 149/80 0 Edema Present Skin color Skin None Normal Warm Dry Circulatory - Right Pulses Dorsalis Pedis Femoral Radial 2 2 2 Scale (0,1,2,3,4,d) Scale (0,1,2,3,4,d) Neurological State Oriented to time-place- Alert Moves all extremities person Respiration - General Respiration Rate SpO2 (%) O2 (lpm) (B/min) 18 96 0 Chronological Log Time Study Chronological Log 8:10:28 Patient arrived via Bed. Positive Allens test performed by Marshall Rueda. 8:16:35 Patient Name, D.O.B, / Armband Verified By R.N. 8:16:37 Consent signed by the physician and the patient and verified by the [employer] staff. 8:16:37 Pre-op and post- op instructions given; patient acknowledges understanding of instructions. 8:17:06 Reference ECG taken Vitals capture started with the following parameters, Patient=Adult, Interval=5 min, Initial Pre pdkxu=087 mmHg, 8:19:40 Deflation Rate=5 mmHg, Cuff placed on Left Arm 8:20:31 HR=84 bpm, DQVM=139/89 mmhg, SpO2=95.0 %, Resp=18 B/min, Ernandez=2 8:21:47 Verbal Stimulation=2 Physical Stimulation=2 Airway=2 Respiration=2 TOTAL=8. (0=absent, 1=monterroso ited, 2=present) 8:21:56 Patient has been NPO for More than 6Hrs. 8:21:58 Skin Breakdown-right foot breakdown. 8:22:48 A # 20 IV was noted in the Antecubital (left). Grade = 0 Patient arrived on IV Solutions given by Eber Francisco in Left Antecubital via Peripheral IV. P ump/Drip Flow = 20 8:23:29 ml/hr using NaCl .9. Ordered by Eber Francisco. 8:23:42 History and physical on the chart or being dictated. Assessment: Initial Case, HR=82 BPM, Rhythm=sr, HOTB=455/89 mmhg, Chest Pain=0, Edema=None, [place] r=Normal, Skin = Warm, Dry 8:23:44 Right Pulses: [place] Ped=2, Femoral=2, Radial=2 Neurological: State=Alert, Ox3, QUINTANILLA Respiration: Resp=18 B/min, SpO2=98 %, O2=0 lpm 8:24:11 Right groin and right radial prepped with 2% chlorhexidine, and draped after a 3 min. waitin g time. 8:25:30 HR=81 bpm, NGTK=456/81 mmhg, SpO2=94.0 %, Resp=20 B/min, Ernandez=2 8:26:13 Pressure channel 1 zeroed. 8:26:18 MD paged 8:30:29 HR=82 bpm, XNUR=300/85 mmhg, SpO2=95.0 %, Resp=21 B/min, Ernandez=2 8:35:30 HR=82 bpm, MREL=203/82 mmhg, SpO2=96.0 %, Resp=23 B/min, Ernandez=2 8:39:08 MD arrived. 8:40:27 HR=76 bpm, UFXW=327/87 mmhg, SpO2=94.0 %, Resp=22 B/min, Ernandez=2 Time Out. Correct patient, correct procedure, correct physician, power injector not loaded with contrast with surgical 8:41:54 team present. Time Out Concurred by MD and individual staff in procedure. Not loaded at this karen e. 8:42:19 Presedation re-assessment performed by As[employer] Ring RN. 8:42:21 Case Start 8:42:23 Verbal Stimulation=2 Physical Stimulation=2 Airway=2 Respiration=2 TOTAL=8. (0=absent, 1=monterroso ited, 2=present) Patient arrived on 5 mL 1% XYLOCAINE given by Eber Francisco in Right Wrist via Subcutaneous. Or dered by Nolan 8:42:50 Eber. 8:43:56 2 mg VERSED given in lab by Fab Sahni RN via Peripheral IV. Ordered by Eber Francisco. 8:44:45 50 mcg FENTANYL given in lab by Fab Sahni RN via Peripheral IV. Ordered by Angelic Francisco en. 8:45:32 HR=84 bpm, JSBO=065/84 mmhg, SpO2=95.0 %, Resp=15 B/min, Ernandez=2 Aborting access in right radial. 8:48:43 8:48:59 20 mL 1% XYLOCAINE given in lab by Eber Francisco in Right Groin via Subcutaneous. Ordered b Eber Ceballos. 8:50:01 Access site was Right Femoral Artery. 8:50:07 A SHEATH, FR5 TERUMO (10CM) FR 5 was advanced into the Fem Art (right) using the Percutaneou s technique. A JL 3.5 INFINITI CATHETER FR 5 was advanced over a wire. OMNIPAQUE, 350 MG, 150ML 150ML was use d for 8:50:20 injections. 8:50:31 HR=84 bpm, KNLV=256/85 mmhg, SpO2=92.0 %, Resp=17 B/min, Ernandez=2 After removing the current catheter a JL 5.0 INFINITI CATHETER FR 5 was advanced over a WIRE, EX CHANGE 260CM 8:51:59 3MMJ 260CM. Recorded Pressure: Ao, HR=77, Condition=Condition 1 8:53:04 (Aorta) Ao 140/68/99 8:55:30 HR=81 bpm, IUUT=862/91 mmhg, SpO2=93.0 %, Resp=18 B/min, Ernandez=2 Recorded Pressure: LV, HR=84, Condition=Condition 1 8:57:01 (Left Ventricle) LV 134/12/21 Recorded Pressure: LV, Ao, HR=80, Condition=Condition 1 8:57:15 (Left Ventricle) LV 141/19/29, (Aorta) Ao 145/75/106 8:57:50 Catheter was removed 9:00:33 HR=90 bpm, YOAC=852/81 mmhg, SpO2=87.0 %, Resp=16 B/min, Ernandez=2 9:01:12 The RCA was injected and visualized at various angles. OMNIPAQUE, 350 MG, 150ML 150ML used. 9:02:17 8200 units HEPARIN given in lab by Fab Sahni, RN in Left Antecubital via Peripheral IV. Ordered by Eber Francisco. 9:05:13 A WIRE, WHISPER W/HYDROCOAT 300CM 300CM was inserted via Fem Art (right). 9:05:34 HR=90 bpm, WHOQ=006/81 mmhg, SpO2=94.0 %, Resp=17 B/min, Ernandez=2 9:07:10 A-LINE CALLED FOR Spoke to Franca in [facility] 9:10:33 HR=90 bpm, MCXY=084/80 mmhg, SpO2=93.0 %, Resp=18 B/min, Ernandez=2 9:11:47 Activated Clotting Time Drawn 9:15:32 HR=88 bpm, DBMZ=273/86 mmhg, SpO2=94.0 %, Resp=18 B/min, Ernandez=2 9:17:07 ACT (Normal Range 90-180) = 294 9:20:34 HR=88 bpm, QJJI=181/87 mmhg, SpO2=93.0 %, Resp=16 B/min, Ernandez=2 9:24:51 The previous wire was exchanged for a WIRE, RUNTHROUGH NS FLOPPY .014 300CM 300CM. 9:25:26 1 mg VERSED given in lab by Fab Sahni, RN via Peripheral IV. Ordered by Eber Francisco. 9:25:33 HR=90 bpm, XPUC=306/90 mmhg, SpO2=96.0 %, Resp=18 B/min, Ernandez=2 9:26:25 The previous wire was exchanged for a WIRE, ASAHI FIELDER XT 300CM 300CM. 9:26:46 25 mcg FENTANYL given in lab by Fab Sahni, RN via Peripheral IV. Ordered by Angelic Francisco en. 9:30:36 HR=90 bpm, OPUR=239/80 mmhg, SpO2=93.0 %, Resp=18 B/min, Ernandez=2 9:32:45 Balloon Removed. 9:32:50 Wire removed 9:34:31 Catheter was removed Assessment: Final Case, HR=90 BPM, Rhythm=sr, RIYP=655/80 mmhg, Chest Pain=0, Edema=None, Color= Normal, Skin = Warm, Dry 9:35:04 Right Pulses: [place] Ped=2, Femoral=2, Radial=2 Neurological: State=Alert, Ox3, QUINTANILLA Respiration: Resp=18 B/min, SpO2=96 %, O2=0 lpm 9:35:24 Vitals capture stopped. 9:35:58 Catheter(s) removed without difficulty 9:36:00 Case End 9:36:02 Sterile dressing applied to site 9:36:06 In the Fem Art (right) the SHEATH, FR5 TERUMO (10CM) FR [address] by Alexis Francisco. 9:36:15 Bedside Report will be given. 9:36:19 Contrast Scanned 9:41:07 Patient moved to [facility] End Study - Maximum Contrast Load Max Contrast Load (mL) 756.3 End Study - Radiation Exposure Fluoro Time (minutes) 19.9 End Study - Patient Disposition Complications Transferred To Interventional Outcome No Telemetry Bed unsuccessful
[2017-10-25] MEDS ORDERED: LIDOCAINE HCL 1% 50 ML VIAL INFIL PRN (09:45)
[2017-10-25] MEDS ORDERED: LORazepam 2 MG/ML VIAL IV PUSH PRN (09:45)
[2017-10-25] MEDS ORDERED: MISC INFORMATION XX ONE (09:45)
[2017-10-25] MEDS ORDERED: BACITRACIN OINT 0.9 GM PKT TOP ONE (09:45)
[2017-10-25] MEDS ORDERED: IOHEXOL 350 MG/ML 50 ML BTL (for Cath Lab) OTHER ONE (10:05)
[2017-10-25] MEDS ORDERED: IOHEXOL 350 MG/ML 100 ML BTL (for Cath Lab) OTHER ONE (10:05)
[2017-10-25] MEDS: VANCOMYCIN INJ 1,750 MG in SODIUM CHLORID 0.9% 500 ML INJ 500 ML IV SCH ×2 (10:24→20:56)
[2017-10-25] MEDS: SODIUM CHLORIDE 0.9% FLUSH 10 ML FLUSH IV FLUSH SCH ×2 (10:24→20:55)
[2017-10-25] MEDS: PANTOPRAZOLE SOD 40 MG DELAYED RELEASE TAB PO SCH ×2 (10:24→20:55)
[2017-10-25] MEDS: ATORVASTATIN 40 MG TAB PO SCH (10:25)
[2017-10-25] MEDS: ISOSORBIDE MONONITRATE 60 MG TAB PO SCH (10:25)
[2017-10-25] MEDS: MORPHINE SULFATE 4 MG/ML INJ IV PUSH PRN ×3 (10:25→20:57)
--- NOTE | 2017-10-25 10:42 | MA ---
cc: MAHI MOODY DATE 10/25/2017 INDICATION FOR PROCEDURE Non-ST elevation HI. PROCEDURE PERFORMED 1. Fluoroscopy with interpretation. 2. Coronary angiography. 3. Left heart catheterization. METHOD The risks, benefits and alternatives were discussed with the patient. The patient understood and consented to the procedure. The patient was brought into the catheterization lab and placed on the catheterization table. The right groin was prepped and draped in a sterile fashion. The right groin was anesthetized with 2% lidocaine. The right common femoral artery is cannulated and a 5 Spanish, 11 cm sheath was placed without difficulty. LEFT HEART CATHETERIZATION Intraventricular hemodynamics measured 120/10 mmHg. CORONARY ANGIOGRAPHY 1. Left main coronary artery has mild luminal irregularities. 2. Left anterior descending coronary artery has 30% proximal stenosis and 50% stenosis in the midsegment. The remainder of the vessel has mild luminal irregularities. There is a diagonal branch which has mild luminal irregularities. 3. Left circumflex artery gives rise to a first obtuse marginal branch which is totally occluded. It is a rather small distal caliber size. Faint filling from collaterals, [id number]. 4. Right coronary artery is a dominant vessel giving rise to a posterior descending coronary. The right coronary is 100% occluded in the midsegment. There may be a very small micro channel visualized but more likely that is completely occluded and fills via the [id number] and [id number] collateralization. We did advance a 1.25 x 6 mm balloon down to the origin to see if there was a small micro channel which was not apparent, so any attempted intervention was aborted. CONCLUSIONS 1. Severe two-vessel coronary artery disease involving the obtuse marginal branch and right coronary artery. 2. Normal left-sided filling pressures. PLAN The first obtuse marginal branch is small in caliber and probably can be easily managed medically. The right coronary is potentially approachable percutaneously but it would have to be with a supportive guide catheter, XB RCA, in addition to a crossing catheter. Given the recent GI bleed will not attempt for any percutaneous intervention at this time. Will start him on long-acting nitrate and allow him to make a full recovery. At that point if he still has residual symptoms it may be worthwhile to try a dedicated approach for the [facility] RECEPTION[facility] for revascularization and if that is unsuccessful then consideration for a single-vessel bypass would be next. From a cardiovascular perspective restart aspirin when cleared by GI. MD JANN Acuna/DOROTHY /9:55 AM /10:10 AM
[2017-10-25] MEDS: COLLAGENASE OINT 30 GM TUBE TOPICAL SCH (12:33)
--- NOTE | 2017-10-25 13:53 | PD.CAR.PN ---
CVT Progress Note Subjective/Hospital Course: Stable post LHC. No chest pain Objective: Vital Signs Date Time Temp Pulse Resp B/P (MAP) Pulse Ox O2 Delivery O2 Flow Rate FiO2 10/25/17 13:00 81 10/25/17 12:00 78 10/25/17 11:00 97 Room Air 10/25/17 11:00 83 19 133/34 (67) 97 10/25/17 11:00 85 10/25/17 10:00 85 10/25/17 08:00 96 Room Air 10/25/17 07:15 84 10/25/17 07:15 97.9 81 19 148/85 (106) 96 10/25/17 06:32 84 10/25/17 05:27 98 10/25/17 04:16 85 10/25/17 03:42 82 10/25/17 03:28 98.3 84 148/78 (101) 97 10/25/17 03:28 Room Air 10/25/17 02:00 92 10/25/17 01:20 98.0 83 145/76 (99) 97 10/25/17 01:20 Room Air Bi-Pap 10/25/17 01:00 80 10/25/17 00:00 80 10/24/17 23:00 81 10/24/17 22:09 98.2 85 140/72 (94) 96 10/24/17 22:09 Room Air 10/24/17 22:00 76 10/24/17 21:00 76 10/24/17 20:00 74 10/24/17 19:00 82 10/24/17 18:00 91 10/24/17 17:00 109 10/24/17 16:00 81 10/24/17 15:00 90 10/24/17 15:00 96 Room Air 10/24/17 15:00 98.8 86 16 127/75 (92) 96 10/24/17 14:00 84 Labs: Laboratory Tests Test 10/25/17 05:30 White Blood Count 12.6 TH/MM3 (4.0-11.0) Red Blood Count 3.95 MIL/MM3 (4.50-5.90) Hemoglobin 11.7 GM/DL (13.0-17.0) Hematocrit 34.6 % (39.0-51.0) Mean Corpuscular Volume 87.6 FL (80.0-100.0) Mean Corpuscular Hemoglobin 29.6 PG (27.0-34.0) Mean Corpuscular Hemoglobin Concent 33.8 % (32.0-36.0) Red Cell Distribution Width 14.0 % (11.6-17.2) Platelet Count 337 TH/MM3 (150-450) Mean Platelet Volume 8.2 FL (7.0-11.0) Neutrophils (%) (Auto) 66.2 % (16.0-70.0) Lymphocytes (%) (Auto) 22.0 % (9.0-44.0) Monocytes (%) (Auto) 7.9 % (0.0-8.0) Eosinophils (%) (Auto) 3.6 % (0.0-4.0) Basophils (%) (Auto) 0.3 % (0.0-2.0) Neutrophils # (Auto) 8.3 TH/MM3 (1.8-7.7) Lymphocytes # (Auto) 2.8 TH/MM3 (1.0-4.8) Monocytes # (Auto) 1.0 TH/MM3 (0-0.9) Eosinophils # (Auto) 0.5 TH/MM3 (0-0.4) Basophils # (Auto) 0.0 TH/MM3 (0-0.2) CBC Comment DIFF FINAL Differential Comment Blood Urea Nitrogen 10 MG/DL (7-18) Creatinine 0.80 MG/DL (0.60-1.30) Random Glucose 179 MG/DL (74-106) Total Protein 7.4 GM/DL (6.4-8.2) Albumin 3.4 GM/DL (3.4-5.0) Calcium Level 8.4 MG/DL (8.5-10.1) Alkaline Phosphatase 67 U/L (45-117) Aspartate Amino Transf (AST/SGOT) 17 U/L (15-37) Alanine Aminotransferase (ALT/SGPT) 24 U/L (12-78) Total Bilirubin 0.5 MG/DL (0.2-1.0) Sodium Level 137 MEQ/L (136-145) Potassium Level 3.9 MEQ/L (3.5-5.1) Chloride Level 100 MEQ/L (98-107) Carbon Dioxide Level 31.2 MEQ/L (21.0-32.0) Anion Gap 6 MEQ/L (5-15) Estimat Glomerular Filtration Rate 98 ML/MIN (>89) Result Diagram: 10/25/1752910/25/17529 Cardiovascular: RRR Telemetry: NSR Plan: Reviewed [facility] study and agree with Dr. Francisco for possible RCA intervention when he recovers from GI bleed. Meche Medellin MD Oct 25, 2017 13:53
--- NOTE | 2017-10-25 14:00 | HHI.PR ---
Subjective Remarks Hemoglobin has remained stable at 11.7 today with a previous value of 11.2. Cultures have grown out staph aureus in regards to his right foot wound. CTA runoff pending. The patient had a heart catheter this morning which shows disease and a possible area where intervention could be possible. Any further intervention for now is deferred due to recent GI bleed and risk of recurrent bleeding. Objective Vital Signs Date Time Temp Pulse Resp B/P (MAP) Pulse Ox O2 Delivery O2 Flow Rate FiO2 10/25/17 13:00 81 10/25/17 12:00 78 10/25/17 11:00 97 Room Air 10/25/17 11:00 83 19 133/34 (67) 97 10/25/17 11:00 85 10/25/17 10:00 85 10/25/17 08:00 96 Room Air 10/25/17 07:15 84 10/25/17 07:15 97.9 81 19 148/85 (106) 96 10/25/17 06:32 84 10/25/17 05:27 98 10/25/17 04:16 85 10/25/17 03:42 82 10/25/17 03:28 98.3 84 148/78 (101) 97 10/25/17 03:28 Room Air 10/25/17 02:00 92 10/25/17 01:20 98.0 83 145/76 (99) 97 10/25/17 01:20 Room Air Bi-Pap 10/25/17 01:00 80 10/25/17 00:00 80 10/24/17 23:00 81 10/24/17 22:09 98.2 85 140/72 (94) 96 10/24/17 22:09 Room Air 10/24/17 22:00 76 10/24/17 21:00 76 10/24/17 20:00 74 10/24/17 19:00 82 10/24/17 18:00 91 10/24/17 17:00 109 10/24/17 16:00 81 10/24/17 15:00 90 10/24/17 15:00 96 Room Air 10/24/17 15:00 98.8 86 16 127/75 (92) 96 10/24/17 14:00 84 I/O 10/24/17 10/24/17 10/24/17 10/25/1718 2/9/18 07:00 15:00 23:00 07:00 15:00 23:00 Intake Total 240 ml 480 ml 480 ml 500 ml Output Total 900 ml 850 ml 2400 ml Balance -660 ml -370 ml -1920 ml 500 ml Intake Oral 240 ml 480 ml 480 ml IV Total 500 ml Output Urine Total 900 ml 850 ml 2400 ml Result Diagram: 10/25/1752910/25/1730 Objective Remarks GENERAL: NAD, A&Ox3 HEAD: Normocephalic. NECK: Supple, trachea midline. No lymphadenopathy. EYES: No scleral icterus. No injection or drainage. CARDIOVASCULAR: Regular rate and rhythm without murmurs, gallops, or rubs. RESPIRATORY: Breath sounds equal bilaterally. No accessory muscle use. GASTROINTESTINAL: Abdomen soft, non-tender, nondistended. MUSCULOSKELETAL: No cyanosis, or edema. Right leg is bandaged. Limited range of motion at left ankle. SKIN: Warm and dry. NEURO: No focal neurological deficitis. A/P Problem List: (1) Non-STEMI (non-ST elevated myocardial infarction) ICD Code: I21.4 - Non-ST elevation (NSTEMI) myocardial infarction Status: Acute (2) Cardiovascular disease ICD Code: I25.10 - Atherosclerotic heart disease of [place] coronary artery without angina pectoris (3) Coronary artery disease ICD Code: I25.10 - Atherosclerotic heart disease of [place] coronary artery without angina pectoris Status: Acute (4) GI bleed ICD Code: K92.2 - Gastrointestinal hemorrhage, unspecified Assessment and Plan 62-year-old male admitted secondary to upper GI bleed with subsequent NSTEMI. Continue to follow CBC. Labs ordered for further monitoring. CTA runoff pending. Continue vancomycin to treat right lower extremity infection. Cultures show staph aureus (MSSA). Upper GI bleed This appears to have stabilized Continue to monitor H&H Continue protonic strip GI following NSTEMI Known coronary artery disease Previous outpatient plan for potential bypass surgery Cardiology following Cartia thoracic surgery following Etiology likely related to anemia Patient reports no chest pain today Follow clinically for chest pain Further cardiac workup in process Diabetes mellitus type 2 Follow blood sugars Insulin sliding scale Diabetic diet Hyponatremia Follow sodium levels Hypertension Continue baseline treatment Follow blood pressures Adjust treatments as needed Vasotec when necessary DVT prophylaxis SCDs No anticoagulation due to bleeding Problem Qualifiers (1) Coronary artery disease: Qualified Codes: I25.110 - Atherosclerotic heart disease of [place] coronary artery with unstable angina pectoris Gio Solitario MD Oct 25, 2017 14:00
[2017-10-25] MEDS ORDERED: IOHEXOL 350 MG/ML 10 ML VIAL (for RAD DIAG) IVCONTRAST ONE (20:12)
--- NOTE | 2017-10-25 22:31 | RADRPT ---
EXAM DATE/TIME: 10/25/2017 20:12 [facility] COMPARISON: No previous studies available for comparison. INDICATIONS : Bilateral lower extremities pain. IV CONTRAST: 100 cc Omnipaque 300 (iohexol) IV RADIATION DOSE: CTDIvol (mGy) MEDICAL HISTORY : Hypertension. Diabetes mellitus type 2. Carcinoma, colon. SURGICAL HISTORY : Colon resection. ENCOUNTER: Initial ACUITY: 1 day PAIN SCALE: 7/10 LOCATION: Bilateral lower extremities. TECHNIQUE: Volumetric scanning was performed using a multi-row detector CT scanner. The data was post processed with a variety of visualization algorithms including full volume maximum intensity projection, multi -planar sliding thin slab reformation, curved planar reformation, and surface rendering techniques. Using automated exposure control and adjustment of the mA and/or kV according to patient size, radiat ion dose was kept as low as reasonably achievable to obtain optimal diagnostic quality images. DICO M format image data is available electronically for review and comparison. FINDINGS: ABDOMINAL AORTA: The lumen is without significant narrowing or aneurysmal dilation. There is atherosclerotic plaquing along the abdominal aorta. The proximal celiac and superior mesenteric arteries are patent and normal in diameter. There are solitary renal arteries bilaterally without gross abnormality. BIFURCATION: Atherosclerotic plaquing at the bifurcation. No evidence of stenosis. RIGHT PELVIS: The right common iliac, internal iliac, and external iliac vessels are patent. A few small atheroscle rotic plaques. LEFT PELVIS: The left common iliac, internal iliac, and external iliac vessels are patent. A few small atheroscler otic plaques. RIGHT THIGH: The superficial femoral and profunda vessels are patent without luminal irregularity. LEFT THIGH: The superficial femoral and profunda vessels are patent without luminal irregularity. There is some f ocal mild narrowing of the distal left SFA. No high-grade stenosis or obstruction. RIGHT KNEE: The distal femoral and popliteal arteries are patent without luminal irregularity. LEFT KNEE: The distal femoral and popliteal arteries are patent without luminal irregularity. RIGHT LEG: The trifurcation is intact. There appears to be 2 vessel runoff down to the right ankle. LEFT LEG: The trifurcation is intact. There is limited visualization of the trifurcation vessels. CONCLUSION: 1. There is atherosclerotic plaquing throughout the abdominal aorta and pelvic vessels. However no fo meli high-grade stenosis or occlusion is demonstrated. 2. There appears to be good inflow and outflow into the lower extremities. There is some focal mild n arrowing of the distal left SFA without high grade stenosis or obstruction. Harinder Morris MD on October 25, 2017 at 22:22 Board Certified Radiologist. This report was verified electronically.
[2017-10-26] VITALS (26 sets, daily range): BP systolic 114–128; BP diastolic 55–67; PULSE 81–110; RESP 16–18; TEMP 97.6–98.8; O2SAT 96–97
[2017-10-26] MEDS: ISOSORBIDE MONONITRATE 60 MG TAB PO SCH (05:09)
[2017-10-26] MEDS: SUCRALFATE 1 GM TAB PO SCH ×2 (05:09→17:22)
[2017-10-26 07:03] LABS: AUTOMATED NEUTROPHIL # 10.1 TH/MM3 (1.8-7.7); BASOPHIL % 0.3 % (0.0-2.0); EOSINOPHIL # 0.3 TH/MM3 (0-0.4); EOSINOPHIL % 2.3 % (0.0-4.0); HEMATOCRIT 30.7 % (39.0-51.0); HEMOGLOBIN 10.3 GM/DL (13.0-17.0); LYMPH % 12.3 % (9.0-44.0); LYMPHOCYTE # 1.7 TH/MM3 (1.0-4.8); MEAN CELL VOLUME 86.8 FL (80.0-100.0); MEAN CORPUSCULAR HEMOGLOBIN 29.2 PG (27.0-34.0); MEAN CORPUSCULAR HGB CONC 33.6 % (32.0-36.0); MEAN PLATELET VOLUME 8.3 FL (7.0-11.0); MONO % 9.8 % (0.0-8.0); MONOCYTE # 1.3 TH/MM3 (0-0.9); NEUT % 75.3 % (16.0-70.0); PLATELET COUNT 319 TH/MM3 (150-450); RED BLOOD COUNT 3.54 MIL/MM3 (4.50-5.90); RED CELL DISTRIBUTION WIDTH 14.1 % (11.6-17.2); WHITE BLOOD COUNT 13.4 TH/MM3 (4.0-11.0)
[2017-10-26 07:29] LABS: BICARBONATE 30.5 MEQ/L (21.0-32.0); CALCIUM 8.3 MG/DL (8.5-10.1); CREATININE 0.78 MG/DL (0.60-1.30)
--- NOTE | 2017-10-26 08:21 | PD.CARD.PN ---
Subjective Subjective Remarks Nop chest pain. puncture sites well healed Objective Medications Current Medications Medications (Trade) Dose Ordered Sig/Ada Route Start Time Stop Time Status Last Admin (NS Flush) 2 ml UNSCH PRN IV FLUSH 10/21/17 22:00 (NS Flush) 2 ml BID IV FLUSH 10/22/17 09:00 10/25/17 20:55 (Zofran Inj) 4 mg Q6H PRN IVP 10/21/17 22:15 (Narcan Inj) 0.4 mg UNSCH PRN IV PUSH 10/21/17 22:15 (D50w (Vial) Inj) 50 ml UNSCH PRN IV PUSH 10/21/17 23:15 (Glucagon Inj) 1 mg UNSCH PRN OTHER 10/21/17 23:15 (NovoLOG SUPPLEMENTAL SCALE) 1 ACHS SLIDING SCALE SQ 10/22/17 08:00 10/25/17 20:55 (Morphine Inj) 4 mg Q3H PRN IV PUSH 10/21/17 23:15 10/25/17 20:57 (Vasotec Inj) 2.5 mg Q6H PRN IV PUSH 10/21/17 23:15 (Protonix) 40 mg Q12HR PO 10/23/17 21:00 10/25/17 20:55 (Carafate) 1 gm BIDAC PO 10/24/17 07:00 10/26/17 05:09 Pharmacy Profile Note 0 ml @ 0 mls/hr UNSCH OTHER 10/24/17 18:30 Vancomycin HCl 1750 mg/Sodium Chloride 517.5 ml @ 250 mls/hr Q12H IV 10/25/17 09:00 10/25/17 20:56 Miscellaneous Information SPECIFIC LAB TO BE BERTHA... ONCE ONCE .XX 10/26/17 08:45 10/26/17 08:46 (Santyl Oint) 1 applic DAILY TOPICAL 10/25/17 09:00 10/25/17 12:33 (Ativan Inj) 0.5 mg UNSCH PRN IV PUSH 10/25/17 09:45 10/26/17 09:44 (Xylocaine 1% Inj (50 ml)) 10 ml UNSCH PRN INFIL 10/25/17 09:45 10/26/17 09:44 (Lipitor) 40 mg DAILY PO 10/25/17 09:45 10/25/17 10:25 (Imdur) 120 mg DAILY@07 PO 10/25/17 09:45 10/26/17 05:09 Vital Signs / I&O Vital Signs Date Time Temp Pulse Resp B/P (MAP) Pulse Ox O2 Delivery O2 Flow Rate FiO2 10/26/17 06:00 92 10/26/17 05:00 90 10/26/17 04:00 Room Air 10/26/17 04:00 93 10/26/17 04:00 97.6 83 16 114/64 (81) 96 10/26/17 03:00 90 10/26/17 02:00 90 10/26/17 01:00 108 10/26/17 00:00 81 10/26/17 00:00 97.8 84 16 119/64 (82) 96 10/26/17 00:00 Room Air 10/25/17 23:00 80 10/25/17 22:00 80 10/25/17 21:00 79 10/25/17 21:00 Room Air 10/25/17 21:00 97.4 85 16 134/71 (92) 95 10/25/17 18:00 102 10/25/17 17:00 92 10/25/17 16:00 87 10/25/17 15:56 16 10/25/17 15:00 95 Room Air 10/25/17 15:00 97.2 85 16 113/66 (82) 95 10/25/17 15:00 80 10/25/17 14:03 84 10/25/17 13:00 81 10/25/17 12:00 78 10/25/17 11:00 97 Room Air 10/25/17 11:00 83 19 133/34 (67) 97 10/25/17 11:00 85 10/25/17 10:00 85 I/O 10/25/17 10/25/17 10/25/17 10/26/17 10/26/17 10/26/17 07:00 15:00 23:00 07:00 15:00 23:00 Intake Total 480 ml 500 ml 840 ml 480 ml Output Total 2400 ml 850 ml 800 ml Balance -1920 ml 500 ml -10 ml -320 ml Intake Oral 480 ml 840 ml 480 ml IV Total 500 ml Output Urine Total 2400 ml 850 ml 800 ml Physical Exam lungs clear RRR Laboratory Laboratory Tests Test 10/26/17 05:58 White Blood Count 13.4 TH/MM3 Red Blood Count 3.54 MIL/MM3 Hemoglobin 10.3 GM/DL Hematocrit 30.7 % Mean Corpuscular Volume 86.8 FL Mean Corpuscular Hemoglobin 29.2 PG Mean Corpuscular Hemoglobin Concent 33.6 % Red Cell Distribution Width 14.1 % Platelet Count 319 TH/MM3 Mean Platelet Volume 8.3 FL Neutrophils (%) (Auto) 75.3 % Lymphocytes (%) (Auto) 12.3 % Monocytes (%) (Auto) 9.8 % Eosinophils (%) (Auto) 2.3 % Basophils (%) (Auto) 0.3 % Neutrophils # (Auto) 10.1 TH/MM3 Lymphocytes # (Auto) 1.7 TH/MM3 Monocytes # (Auto) 1.3 TH/MM3 Eosinophils # (Auto) 0.3 TH/MM3 Basophils # (Auto) 0.0 TH/MM3 CBC Comment DIFF FINAL Differential Comment Blood Urea Nitrogen 13 MG/DL Creatinine 0.78 MG/DL Random Glucose 221 MG/DL Calcium Level 8.3 MG/DL Sodium Level 136 MEQ/L Potassium Level 3.8 MEQ/L Chloride Level 97 MEQ/L Carbon Dioxide Level 30.5 MEQ/L Anion Gap 9 MEQ/L Estimat Glomerular Filtration Rate 101 ML/MIN Assessment and Plan Assessment and Plan stable Cv. Continue med therapy Gulshan Kelley MD Oct 26, 2017 08:21
[2017-10-26] MEDS ORDERED: PHARMACY ORDERED LAB ONE (08:45)
[2017-10-26] MEDS: SODIUM CHLORIDE 0.9% FLUSH 10 ML FLUSH IV FLUSH SCH ×2 (09:11→19:49)
[2017-10-26] MEDS: ATORVASTATIN 40 MG TAB PO SCH (09:11)
[2017-10-26] MEDS: INSULIN ASPART SUPPLEMENTAL SCALE SQ SCH ×3 (09:11→17:27)
[2017-10-26] MEDS: PANTOPRAZOLE SOD 40 MG DELAYED RELEASE TAB PO SCH ×2 (09:11→19:48)
[2017-10-26] MEDS: VANCOMYCIN INJ 1,750 MG in SODIUM CHLORID 0.9% 500 ML INJ 500 ML IV SCH ×2 (09:11→19:49)
[2017-10-26] MEDS: MORPHINE SULFATE 4 MG/ML INJ IV PUSH PRN ×2 (09:12→19:48)
[2017-10-26] MEDS: COLLAGENASE OINT 30 GM TUBE TOPICAL SCH (09:13)
--- NOTE | 2017-10-26 15:37 | HHI.PR ---
Subjective Remarks Drop in hemoglobin from 11.2-10.3 today. Patient has no active signs of bleeding otherwise. No plan for immediate heart catheter intervention or bypass surgery. Continue treatments of right lower extremity infection/ cellulitis. Objective Vital Signs Date Time Temp Pulse Resp B/P (MAP) Pulse Ox O2 Delivery O2 Flow Rate FiO2 10/26/17 09:19 18 10/26/17 06:00 92 10/26/17 05:00 90 10/26/17 04:00 Room Air 10/26/17 04:00 93 10/26/17 04:00 97.6 83 16 114/64 (81) 96 10/26/17 03:00 90 10/26/17 02:00 90 10/26/17 01:00 108 10/26/17 00:00 81 10/26/17 00:00 97.8 84 16 119/64 (82) 96 10/26/17 00:00 Room Air 10/25/17 23:00 80 10/25/17 22:00 80 10/25/17 21:00 79 10/25/17 21:00 Room Air 10/25/17 21:00 97.4 85 16 134/71 (92) 95 10/25/17 18:00 102 10/25/17 17:00 92 10/25/17 16:00 87 I/O 10/25/17 10/25/17 10/25/17 10/26/17 10/26/17 10/26/17 07:00 15:00 23:00 07:00 15:00 23:00 Intake Total 480 ml 500 ml 840 ml 480 ml Output Total 2400 ml 850 ml 800 ml Balance -1920 ml 500 ml -10 ml -320 ml Intake Oral 480 ml 840 ml 480 ml IV Total 500 ml Output Urine Total 2400 ml 850 ml 800 ml Result Diagram: 10/26/1758 10/26/1758 Objective Remarks GENERAL: NAD, A&Ox3 HEAD: Normocephalic. NECK: Supple, trachea midline. No lymphadenopathy. EYES: No scleral icterus. No injection or drainage. CARDIOVASCULAR: Regular rate and rhythm without murmurs, gallops, or rubs. RESPIRATORY: Breath sounds equal bilaterally. No accessory muscle use. GASTROINTESTINAL: Abdomen soft, non-tender, nondistended. MUSCULOSKELETAL: No cyanosis, or edema. Right leg is bandaged. Limited range of motion at left ankle. SKIN: Warm and dry. NEURO: No focal neurological deficitis. A/P Problem List: (1) Non-STEMI (non-ST elevated myocardial infarction) ICD Code: I21.4 - Non-ST elevation (NSTEMI) myocardial infarction Status: Acute (2) Cardiovascular disease ICD Code: I25.10 - Atherosclerotic heart disease of [place] coronary artery without angina pectoris (3) Coronary artery disease ICD Code: I25.10 - Atherosclerotic heart disease of [place] coronary artery without angina pectoris Status: Acute (4) GI bleed ICD Code: K92.2 - Gastrointestinal hemorrhage, unspecified Assessment and Plan 62-year-old male admitted secondary to upper GI bleed with subsequent NSTEMI. CTA runoff shows no focal defects. Labs reviewed. Downward trend in hemoglobin. Continue to monitor labs. Labs ordered for further monitoring. Initiate physical therapy and occupational therapy. Long-term treatment for cardiac disease will include aspirin if tolerated. Upper GI bleed This appears to have stabilized Continue to monitor H&H Continue protonic strip GI following NSTEMI Known coronary artery disease Previous outpatient plan for potential bypass surgery Cardiology following Cartia thoracic surgery following Etiology likely related to anemia Patient reports no chest pain today Follow clinically for chest pain Further cardiac workup in process Diabetes mellitus type 2 Follow blood sugars Insulin sliding scale Diabetic diet Hyponatremia Follow sodium levels Hypertension Continue baseline treatment Follow blood pressures Adjust treatments as needed Vasotec when necessary DVT prophylaxis SCDs No anticoagulation due to bleeding Problem Qualifiers (1) Coronary artery disease: Qualified Codes: I25.110 - Atherosclerotic heart disease of [place] coronary artery with unstable angina pectoris Gio Solitario MD Oct 26, 2017 15:37
[2017-10-27] VITALS (24 sets, daily range): BP systolic 113–139; BP diastolic 63–74; PULSE 74–92; RESP 16–20; TEMP 98.4–98.5; O2SAT 97
[2017-10-27] MEDS: MORPHINE SULFATE 4 MG/ML INJ IV PUSH PRN ×3 (00:30→09:04)
[2017-10-27] MEDS: INSULIN ASPART SUPPLEMENTAL SCALE SQ SCH ×4 (00:30→17:00)
[2017-10-27 07:25] LABS: HEMATOCRIT 27.5 % (39.0-51.0); HEMOGLOBIN 9.4 GM/DL (13.0-17.0); MEAN CELL VOLUME 86.3 FL (80.0-100.0); MEAN CORPUSCULAR HEMOGLOBIN 29.6 PG (27.0-34.0); MEAN CORPUSCULAR HGB CONC 34.3 % (32.0-36.0); MEAN PLATELET VOLUME 8.1 FL (7.0-11.0); PLATELET COUNT 293 TH/MM3 (150-450); RED BLOOD COUNT 3.19 MIL/MM3 (4.50-5.90); RED CELL DISTRIBUTION WIDTH 14.2 % (11.6-17.2); WHITE BLOOD COUNT 8.8 TH/MM3 (4.0-11.0)
[2017-10-27 07:54] LABS: BICARBONATE 30.7 MEQ/L (21.0-32.0); CREATININE 0.72 MG/DL (0.60-1.30)
[2017-10-27] MEDS: ISOSORBIDE MONONITRATE 60 MG TAB PO SCH (09:03)
[2017-10-27] MEDS: VANCOMYCIN INJ 1,750 MG in SODIUM CHLORID 0.9% 500 ML INJ 500 ML IV SCH (09:03)
[2017-10-27] MEDS: PANTOPRAZOLE SOD 40 MG DELAYED RELEASE TAB PO SCH (09:04)
[2017-10-27] MEDS: SODIUM CHLORIDE 0.9% FLUSH 10 ML FLUSH IV FLUSH SCH (09:04)
[2017-10-27] MEDS: ASPIRIN EC 81 MG TABEC PO SCH (09:04)
[2017-10-27] MEDS: ATORVASTATIN 40 MG TAB PO SCH (09:04)
[2017-10-27] MEDS: SUCRALFATE 1 GM TAB PO SCH ×2 (09:04→17:33)
[2017-10-27] MEDS: COLLAGENASE OINT 30 GM TUBE TOPICAL SCH (09:05)
--- NOTE | 2017-10-27 10:24 | HHI.PR ---
Subjective Remarks Continued slight downward trend in hemoglobin levels. Yesterday's hemoglobin was 10.3. Today his hemoglobin is 9.4. Patient reports no bloody bowel movements. At baseline he uses crutches and wheelchair. Physical therapy evaluation is pending to determine strength and ability to resume previous motor functions and functional status. Continued monitoring of his hemoglobin is needed to ensure stability. Ideally he should discharge on aspirin related to his cardiac status, he is currently on an aspirin, however aspirin will have to be held again if his hemoglobin continues to trend downward. Objective Vital Signs Date Time Temp Pulse Resp B/P (MAP) Pulse Ox O2 Delivery O2 Flow Rate FiO2 10/27/17 09:23 19 10/27/17 04:27 81 16 128/66 (86) 97 10/27/17 04:00 Room Air 21 10/27/17 04:00 92 10/27/17 00:00 84 10/27/17 00:00 Room Air 21 10/27/17 00:00 90 10/27/17 00:00 83 18 139/63 (88) 97 10/26/17 23:00 84 10/26/17 22:00 86 10/26/17 21:00 82 10/26/17 20:30 Room Air 21 10/26/17 20:00 85 10/26/17 20:00 86 10/26/17 20:00 98.1 85 16 128/67 (87) 96 10/26/17 19:00 88 10/26/17 18:00 90 10/26/17 17:00 98 10/26/17 16:00 98.3 92 18 115/57 (76) 97 10/26/17 16:00 Room Air 10/26/17 16:00 86 10/26/17 15:00 92 10/26/17 14:00 92 10/26/17 13:00 96 10/26/17 12:00 87 10/26/17 11:20 98.2 88 18 118/55 (76) 96 10/26/17 11:20 Room Air 10/26/17 11:00 96 I/O 10/26/17 10/26/17 10/26/17 10/27/17 10/27/17 10/27/17 07:00 15:00 23:00 07:00 15:00 23:00 Intake Total 1320 ml 517.5 ml 600 ml Output Total 3575 ml 750 ml Balance -2255 ml 517.5 ml -150 ml Intake Oral 1320 ml 600 ml IV Total 517.5 ml Output Urine Total 3575 ml 750 ml # Voids 2 # Bowel Movements 0 Result Diagram: 10/27/1762510/27/17625 Objective Remarks GENERAL: NAD, A&Ox3 HEAD: Normocephalic. NECK: Supple, trachea midline. No lymphadenopathy. EYES: No scleral icterus. No injection or drainage. CARDIOVASCULAR: Regular rate and rhythm without murmurs, gallops, or rubs. RESPIRATORY: Breath sounds equal bilaterally. No accessory muscle use. GASTROINTESTINAL: Abdomen soft, non-tender, nondistended. MUSCULOSKELETAL: No cyanosis, or edema. Right leg is bandaged. Limited range of motion at left ankle. SKIN: Warm and dry. NEURO: No focal neurological deficitis. A/P Problem List: (1) Non-STEMI (non-ST elevated myocardial infarction) ICD Code: I21.4 - Non-ST elevation (NSTEMI) myocardial infarction Status: Acute (2) Cardiovascular disease ICD Code: I25.10 - Atherosclerotic heart disease of [place] coronary artery without angina pectoris (3) Coronary artery disease ICD Code: I25.10 - Atherosclerotic heart disease of [place] coronary artery without angina pectoris Status: Acute (4) GI bleed ICD Code: K92.2 - Gastrointestinal hemorrhage, unspecified Assessment and Plan 62-year-old male admitted secondary to upper GI bleed with subsequent NSTEMI. CTA runoff shows no focal defects. Labs reviewed. Downward trend in hemoglobin continues. Continue to monitor labs. Labs ordered for further monitoring. Await physical therapy evaluation. He was diagnosed with GI bleed and 3 ulcers with admitted during this hospitalization. Continue to monitor CBC and consider discharge when hemoglobin stable. Upper GI bleed This appears to have stabilized Continue to monitor H&H Continue protonic strip GI following NSTEMI Known coronary artery disease Previous outpatient plan for potential bypass surgery Cardiology following Cartia thoracic surgery following Etiology likely related to anemia Patient reports no chest pain today Follow clinically for chest pain Further cardiac workup in process Diabetes mellitus type 2 Follow blood sugars Insulin sliding scale Diabetic diet Hyponatremia Follow sodium levels Hypertension Continue baseline treatment Follow blood pressures Adjust treatments as needed Vasotec when necessary DVT prophylaxis SCDs No anticoagulation due to bleeding Discharge planning Physical therapy evaluation prior to discharge Stabilized hemoglobin trends are needed prior to discharge Problem Qualifiers (1) Coronary artery disease: Qualified Codes: I25.110 - Atherosclerotic heart disease of [place] coronary artery with unstable angina pectoris Gio Solitario MD Oct 27, 2017 10:24
[2017-10-27] MEDS ORDERED: ACETAMINOPHEN/HYDROcodone 325 MG/5 MG TAB PO PRN (11:00)
[2017-10-27] MEDS ORDERED: LACTULOSE SYRUP 20 GM/30 ML CUP PO PRN (11:00)
[2017-10-27] MEDS ORDERED: MORPHINE SULFATE 4 MG/ML INJ IV PUSH PRN (11:15)
[2017-10-28] VITALS (9 sets, daily range): BP systolic 131–134; BP diastolic 66–79; PULSE 76–92; RESP 16–18; TEMP 98.2; O2SAT 95–98
[2017-10-28] MEDS: DOCUSATE SODIUM 100 MG CAP PO SCH ×2 (00:22→10:37)
[2017-10-28] MEDS: PANTOPRAZOLE SOD 40 MG DELAYED RELEASE TAB PO SCH ×2 (00:22→10:38)
[2017-10-28] MEDS: SODIUM CHLORIDE 0.9% FLUSH 10 ML FLUSH IV FLUSH SCH ×2 (00:23→11:23)
[2017-10-28] MEDS: VANCOMYCIN INJ 1,750 MG in SODIUM CHLORID 0.9% 500 ML INJ 500 ML IV SCH ×2 (00:23→11:22)
[2017-10-28] MEDS: INSULIN ASPART SUPPLEMENTAL SCALE SQ SCH ×3 (00:32→12:00)
[2017-10-28 06:53] LABS: AUTOMATED NEUTROPHIL # 5.5 TH/MM3 (1.8-7.7); BASOPHIL % 0.4 % (0.0-2.0); EOSINOPHIL # 0.5 TH/MM3 (0-0.4); EOSINOPHIL % 5.4 % (0.0-4.0); HEMOGLOBIN 9.7 GM/DL (13.0-17.0); LYMPH % 25.3 % (9.0-44.0); LYMPHOCYTE # 2.4 TH/MM3 (1.0-4.8); MEAN CELL VOLUME 86.3 FL (80.0-100.0); MEAN CORPUSCULAR HEMOGLOBIN 29.8 PG (27.0-34.0); MEAN CORPUSCULAR HGB CONC 34.6 % (32.0-36.0); MEAN PLATELET VOLUME 7.9 FL (7.0-11.0); MONO % 9.7 % (0.0-8.0); MONOCYTE # 0.9 TH/MM3 (0-0.9); NEUT % 59.2 % (16.0-70.0); PLATELET COUNT 318 TH/MM3 (150-450); RED BLOOD COUNT 3.24 MIL/MM3 (4.50-5.90); RED CELL DISTRIBUTION WIDTH 13.6 % (11.6-17.2); WHITE BLOOD COUNT 9.3 TH/MM3 (4.0-11.0)
[2017-10-28 07:18] LABS: ALBUMIN 2.9 GM/DL (3.4-5.0); AST (GOT) 10 U/L (15-37); BICARBONATE 31.8 MEQ/L (21.0-32.0); BLOOD UREA NITROGEN 9 MG/DL (7-18); CALCIUM 8.2 MG/DL (8.5-10.1); CHLORIDE 101 MEQ/L (98-107); GLOMERULAR FILTRATION RATE 98 ML/MIN (>89); GLUCOSE,RANDOM 171 MG/DL (74-106); SODIUM (NA) 138 MEQ/L (136-145)
[2017-10-28 07:21] LABS: ALKALINE PHOSPHATASE 60 U/L (45-117); ALT (GPT) 18 U/L (12-78); TOTAL BILIRUBIN ADULT 0.5 MG/DL (0.2-1.0); TOTAL PROTEIN 6.5 GM/DL (6.4-8.2)
--- NOTE | 2017-10-28 08:01 | PD.CARD.PN ---
Subjective Subjective Remarks denies chest pain or sob. heartburn has resolved. wants to go home. Objective Medications Current Medications Medications (Trade) Dose Ordered Sig/Ada Route Start Time Stop Time Status Last Admin (NS Flush) 2 ml UNSCH PRN IV FLUSH 10/21/17 22:00 (NS Flush) 2 ml BID IV FLUSH 10/22/17 09:00 10/28/17 00:23 (Zofran Inj) 4 mg Q6H PRN IVP 10/21/17 22:15 (Narcan Inj) 0.4 mg UNSCH PRN IV PUSH 10/21/17 22:15 (D50w (Vial) Inj) 50 ml UNSCH PRN IV PUSH 10/21/17 23:15 (Glucagon Inj) 1 mg UNSCH PRN OTHER 10/21/17 23:15 (NovoLOG SUPPLEMENTAL SCALE) 1 ACHS SLIDING SCALE SQ 10/22/17 08:00 10/27/17 17:00 (Vasotec Inj) 2.5 mg Q6H PRN IV PUSH 10/21/17 23:15 (Protonix) 40 mg Q12HR PO 10/23/17 21:00 10/28/17 00:22 (Carafate) 1 gm BIDAC PO 10/24/17 07:00 10/27/17 17:33 Pharmacy Profile Note 0 ml @ 0 mls/hr UNSCH OTHER 10/24/17 18:30 Vancomycin HCl 1750 mg/Sodium Chloride 517.5 ml @ 250 mls/hr Q12H IV 10/25/17 09:00 10/28/17 00:23 (Santyl Oint) 1 applic DAILY TOPICAL 10/25/17 09:00 10/27/17 09:05 (Lipitor) 40 mg DAILY PO 10/25/17 09:45 10/27/17 09:04 (Imdur) 120 mg DAILY@07 PO 10/25/17 09:45 10/27/17 09:03 Miscellaneous Information SPECIFIC LAB TO BE BERTHA... ONCE ONCE .XX 10/28/17 08:45 10/28/17 08:46 (Ecotrin Ec) 81 mg DAILY PO 10/27/17 09:00 10/27/17 09:04 (Morphine Inj) 2 mg Q3H PRN IV PUSH 10/27/17 11:15 (Colace) 100 mg BID PO 10/27/17 21:00 10/28/17 00:22 (Lactulose Liq) 30 ml BID PRN PO 10/27/17 11:00 ([place] 5-325 Mg) 1 tab Q4H PRN PO 10/27/17 11:00 10/28/17 00:22 Vital Signs / I&O Vital Signs Date Time Temp Pulse Resp B/P (MAP) Pulse Ox O2 Delivery O2 Flow Rate FiO2 10/28/17 01:56 16 10/28/17 00:24 85 16 133/66 (88) 95 10/27/17 18:00 78 10/27/17 17:00 74 10/27/17 16:28 98.4 79 20 134/74 (94) 97 10/27/17 16:15 96 Room Air 10/27/17 16:00 84 10/27/17 15:00 82 10/27/17 14:00 84 10/27/17 13:00 74 10/27/17 12:00 80 10/27/17 11:45 98.5 81 19 113/66 (82) 97 10/27/17 11:45 97 Room Air 10/27/17 11:00 90 10/27/17 10:00 82 10/27/17 09:23 19 10/27/17 09:00 84 10/27/17 08:00 86 Physical Exam GENERAL: SKIN: Warm and dry. HEAD: Atraumatic. Normocephalic. EYES: Pupils equal and round. ENT: No nasal bleeding or discharge. Mucous membranes pink and moist. NECK: Trachea midline. No JVD. CARDIOVASCULAR: Regular rate and rhythm. no murmurs RESPIRATORY: No accessory muscle use. Clear to auscultation. Breath sounds equal bilaterally. GASTROINTESTINAL: Abdomen soft, non-tender, nondistended. MUSCULOSKELETAL: Extremities without clubbing, cyanosis, or edema. No obvious deformities. NEUROLOGICAL: Awake and alert. No obvious cranial nerve deficits. Normal speech. PSYCHIATRIC: Appropriate mood and affect; insight and judgment normal. Laboratory Laboratory Tests Test 10/28/17 06:23 White Blood Count 9.3 TH/MM3 Red Blood Count 3.24 MIL/MM3 Hemoglobin 9.7 GM/DL Hematocrit 28.0 % Mean Corpuscular Volume 86.3 FL Mean Corpuscular Hemoglobin 29.8 PG Mean Corpuscular Hemoglobin Concent 34.6 % Red Cell Distribution Width 13.6 % Platelet Count 318 TH/MM3 Mean Platelet Volume 7.9 FL Neutrophils (%) (Auto) 59.2 % Lymphocytes (%) (Auto) 25.3 % Monocytes (%) (Auto) 9.7 % Eosinophils (%) (Auto) 5.4 % Basophils (%) (Auto) 0.4 % Neutrophils # (Auto) 5.5 TH/MM3 Lymphocytes # (Auto) 2.4 TH/MM3 Monocytes # (Auto) 0.9 TH/MM3 Eosinophils # (Auto) 0.5 TH/MM3 Basophils # (Auto) 0.0 TH/MM3 CBC Comment AUTO DIFF Blood Urea Nitrogen 9 MG/DL Creatinine 0.80 MG/DL Random Glucose 171 MG/DL Total Protein 6.5 GM/DL Albumin 2.9 GM/DL Calcium Level 8.2 MG/DL Alkaline Phosphatase 60 U/L Aspartate Amino Transf (AST/SGOT) 10 U/L Alanine Aminotransferase (ALT/SGPT) 18 U/L Total Bilirubin 0.5 MG/DL Sodium Level 138 MEQ/L Potassium Level 3.8 MEQ/L Chloride Level 101 MEQ/L Carbon Dioxide Level 31.8 MEQ/L Anion Gap 5 MEQ/L Estimat Glomerular Filtration Rate 98 ML/MIN Assessment and Plan Problem List: (1) Non-STEMI (non-ST elevated myocardial infarction) ICD Codes: I21.4 - Non-ST elevation (NSTEMI) myocardial infarction Status: Acute (2) Coronary artery disease ICD Codes: I25.10 - Atherosclerotic heart disease of [place] coronary artery without angina pectoris Status: Acute Assessment and Plan 62 yo WM with CAD, DM, HLD, and HTN who presented with chest pain and found to have NSTEMI. CAD- cardiac cath 10/25/17 revealed severe 2 vessel disease involving 1st obtuse marginal branch and RCA. consider LHC vs. single vessel CABG upon recovery from GI bleed. Hgb~9 continue isosorbide, no chest pain currently echo normal EF Problem Qualifiers (1) Coronary artery disease: Qualified Codes: I25.110 - Atherosclerotic heart disease of [place] coronary artery with unstable angina pectoris May Riddle Oct 28, 2017 08:01
[2017-10-28] MEDS ORDERED: PHARMACY ORDERED LAB ONE (08:45)
[2017-10-28] MEDS: ASPIRIN EC 81 MG TABEC PO SCH (09:00)
--- NOTE | 2017-10-28 09:03 | HHI.PR ---
Subjective Remarks in no acute distress. denies chest pain or sob. no fever. no new complaints. Objective Vitals Vital Signs Date Time Temp Pulse Resp B/P (MAP) Pulse Ox O2 Delivery O2 Flow Rate FiO2 10/28/17 07:44 98.2 84 18 134/79 (97) 97 10/28/17 04:00 Room Air 21 10/28/17 04:00 82 10/28/17 01:56 16 10/28/17 01:00 86 10/28/17 00:24 85 16 133/66 (88) 95 10/28/17 00:00 83 10/28/17 00:00 86 10/27/17 23:00 88 10/27/17 22:00 88 10/27/17 21:00 76 10/27/17 20:09 77 16 125/69 (87) 10/27/17 20:00 76 10/27/17 20:00 78 10/27/17 19:00 74 10/27/17 18:00 78 10/27/17 17:00 74 10/27/17 16:28 98.4 79 20 134/74 (94) 97 10/27/17 16:15 96 Room Air 10/27/17 16:00 84 10/27/17 15:00 82 10/27/17 14:00 84 10/27/17 13:00 74 10/27/17 12:00 80 10/27/17 11:45 98.5 81 19 113/66 (82) 97 10/27/17 11:45 97 Room Air 10/27/17 11:00 90 10/27/17 10:00 82 10/27/17 09:23 19 I/O 10/27/17 10/27/17 10/27/17 10/28/17 10/28/17 10/28/17 07:00 15:00 23:00 07:00 15:00 23:00 Output Total 600 ml Balance -600 ml Output Urine Total 600 ml # Bowel Movements 1 Result Diagram: 10/28/1762210/28/17622 Imaging Last Impressions Aorta w/Runoff CTA 10/24/17 0000 Signed Impressions: Service Date/Time: Wednesday, October 25, 2017 20:12 - CONCLUSION: 1. There is atherosclerotic plaquing throughout the abdominal aorta and pelvic vessels. However no focal high-grade stenosis or occlusion is demonstrated. 2. There appears to be good inflow and outflow into the lower extremities. There is some focal mild narrowing of the distal left SFA without high grade stenosis or obstruction. Harinder Morris MD Foot X-Ray 10/23/17 0000 Signed Impressions: Service Date/Time: Monday, October 23, 2017 19:35 - CONCLUSION: Chronic changes of the right foot. Harinder Morris MD Objective Remarks GENERAL: This is a well-nourished, well-developed patient, in no apparent distress. CARDIOVASCULAR: Regular rate and regular rhythm without murmurs, gallops, or rubs. RESPIRATORY: Clear to auscultation. Breath sounds equal bilaterally. No wheezes , rales, or rhonchi. GASTROINTESTINAL: Abdomen soft, non-tender, nondistended. Normal, active bowel sounds MUSCULOSKELETAL: Extremities without clubbing, cyanosis, or edema. NEURO: Alert & Oriented x4 to person, place, time, situation. Moves all ext x4 Procedures 10/23-EGD Medications and IVs Inpatient Medications Acetaminophen/ Hydrocodone Bitart ([place] 5-325 Mg) 1 tab Q4H PRN PO Pain 3 to 10 Last administered on 10/28/17at 00:22; Start 10/27/17 at 11:00 Aspirin (Ecotrin Ec) 81 mg DAILY PO Last administered on 10/27/17at 09:04; Start 10/27/17 at 09:00 Atorvastatin Calcium (Lipitor) 40 mg DAILY PO Last administered on 10/27/17at 09 :04; Start 10/25/17 at 09:45 Bacitracin (Bacitracin Oint Packet) 0.9 gm ONCE ONCE TOP ; Start 10/25/17 at 09: 45; Stop 10/25/17 at 09:56; Status DC Collagenase (Santyl Oint) 1 applic DAILY TOPICAL Last administered on at 09:05; Start 10/25/17 at 09:00 Dextrose (D50w (Vial) Inj) 50 ml UNSCH PRN IV PUSH HYPOGLYCEMIA-SEE COMMENTS; Start 10/21/17 at 23:15 Docusate Sodium (Colace) 100 mg BID PO Last administered on 10/28/17at 00:22; Start 10/27/17 at 21:00 Enalaprilat (Vasotec Inj) 2.5 mg Q6H PRN IV PUSH SBP>160 DBP>90; Start 10/21/17 at 23:15 Furosemide (Lasix Inj) 20 mg UNSCH PRN IV PUSH after each unit blood Last administered on 10/22/17at 07:55; Start 10/21/17 at 22:00; Stop 10/22/17 at 07:55; Status DC Glucagon (Glucagon Inj) 1 mg UNSCH PRN OTHER HYPOGLYCEMIA-SEE COMMENTS; Start 10/21/17 at 23:15 Insulin Aspart (NovoLOG SUPPLEMENTAL SCALE) 1 ACHS SLIDING SCALE SQ Last administered on 10/27/17at 17:00; Start 10/22/17 at 08:00 Isosorbide Mononitrate (Imdur) 120 mg DAILY@07 PO Last administered on at 09:03; Start 10/25/17 at 09:45 Lactulose (Lactulose Liq) 30 ml BID PRN PO Constipation; Start 10/27/17 at 11: 00 Lidocaine HCl (Xylocaine 1% Inj (50 ml)) 10 ml UNSCH PRN INFIL SHEATH REMOVAL; Start 10/25/17 at 09:45; Stop 10/26/17 at 09:44; Status DC Lorazepam (Ativan Inj) 0.5 mg UNSCH PRN IV PUSH ANXIETY; Start 10/25/17 at 09:45 ; Stop 10/26/17 at 09:44; Status DC Miscellaneous Information SPECIFIC LAB TO BE BERTHA... ONCE ONCE .XX ; Start 10/28 at 08:45; Stop 10/28/17 at 08:46; Status DC Morphine Sulfate (Morphine Inj) 2 mg Q3H PRN IV PUSH Breakthrough Pain; Start 10/27/17 at 11:15 Naloxone HCl (Narcan Inj) 0.4 mg UNSCH PRN IV PUSH SEE LABEL COMMENTS; Start at 22:15 Ondansetron HCl (Zofran Inj) 4 mg Q6H PRN IVP NAUSEA OR VOMITING; Start at 22:15 Pantoprazole Sodium (Protonix) 40 mg Q12HR PO Last administered on 10/28/17at 00 :22; Start 10/23/17 at 21:00 Pantoprazole Sodium 80 mg/ Sodium Chloride 100 ml @ 10 mls/hr Q10H IV Last administered on 10/23/17at 15:40; Start 10/22/17 at 00:00; Stop 10/23/17 at 18:43; Status DC Pharmacy Profile Note 0 ml @ 0 mls/hr UNSCH OTHER ; Start 10/24/17 at 18:30 Sodium Chloride 250 ml @ 15 mls/hr ONCE ONCE IV Last administered on at 23:48; Start 10/21/17 at 22:00; Stop 10/22/17 at 14:39; Status DC Sodium Chloride (NS Flush) 2 ml BID IV FLUSH Last administered on 10/28/17at 00: 23; Start 10/22/17 at 09:00 Sucralfate (Carafate) 1 gm BIDAC PO Last administered on 10/27/17at 17:33; Start 10/24/17 at 07:00 Vancomycin HCl 1750 mg/Sodium Chloride 517.5 ml @ 250 mls/hr Q12H IV Last administered on 10/28/17at 00:23; Start 10/25/17 at 09:00 Vancomycin HCl 2000 mg/Sodium Chloride 520 ml @ 250 mls/hr ONCE ONCE IV Last administered on 10/24/17at 21:00; Start 10/24/17 at 21:00; Stop 10/24/17 at 23:04; Status DC A/P Assessment and Plan A/P Upper GI bleed s/p EGD with Ulcers antrum-three- clean base 8 mm, 6 mm and 4 mm,biopsy from antrum/body to r/o H.pylori H/H stable. Continue to monitor H&H Continue protonix GI following NSTEMI Known coronary artery disease Previous outpatient plan for potential bypass surgery Cardiology following Cardiothoracic surgery following Further cardiac workup in process right lateral ankle ulcer and right 5th met base ulcer CTA runoff with no high-grade focal stenosis podiatry and wound care following. Diabetes mellitus type 2 Follow blood sugars Insulin sliding scale Diabetic diet Hyponatremia Follow sodium levels Hypertension Continue baseline treatment Follow blood pressures Adjust treatments as needed Vasotec when necessary DVT prophylaxis SCDs No anticoagulation due to bleeding Discharge Planning dc home today if cleared by podiatry. HHC upon discharge. f/u; pcp, podiatry, cardiology and GI. see med list. d/w the patient and RN. time spent 35 min. Samuel Hernandez MD Oct 28, 2017 09:03
[2017-10-28] MEDS ORDERED: FERROUS SULFATE 325 MG (65 MG ELEMENTAL IRON) TAB PO SCH (10:15)
[2017-10-28] MEDS: ATORVASTATIN 40 MG TAB PO SCH (10:38)
[2017-10-28] MEDS: ISOSORBIDE MONONITRATE 60 MG TAB PO SCH (10:52)
[2017-10-28] MEDS: SUCRALFATE 1 GM TAB PO SCH (10:52)
[2017-10-28] MEDS ORDERED: CARA1TAB6 PO (14:02)
[2017-10-28] MEDS ORDERED: FERR325T20 PO (14:02)
[2017-10-28] MEDS ORDERED: ISOS60TA PO (14:02)
[2017-10-28] MEDS ORDERED: PANT40TA3 PO (14:02)
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
--- NOTE | 2017-10-28 14:19 | HHI.FF ---
Face to Face Verification Diagnosis: (1) Ankle ulcer (2) Cardiovascular disease Physical Therapy Order: Evaluate and Treat Home Health Nursing Order: Medical education Signs/symptoms of disease process Medication education-adverse effect Wound care and dressing changes Nursing assessment with vital signs Instructions: cleanse the wound site, apply Santyl ointment at 2mm thickness directly to the wound or to a sterile gauze pad and then apply to the wound site. Do not use dressings containing silver or iodine. I have seen patient Mateus Freed on 10/28/17. My clinical findings support the need for the requested home health care services because: Ltd mobility - disease progression I certify that my clinical findings support that this patient is homebound because: Poor cardiac reserve Samuel Hernandez MD Oct 28, 2017 14:19
[2017-10-28] MEDS ORDERED: DOXY100C PO (17:07)
[2017-10-28] MEDS ORDERED: CEPH-460 PO (17:19)
== END 2017-10-28 19:12 | disposition home health service (06) | DRG 377 ==
LOC: NEDDLT 19:54 → N04A 21:04 → HCVI 10-22 01:17 → HCIS 10-23 10:16
PROVIDERS: ADMIT Internal Medicine; ATTEND Internal Medicine
PROC: 30233N1 Transfusion of Nonautologous Red Blood Cells into Peripheral Vein, Percutaneous Approach (ICD-10-PCS; 2017-10-22)
PROC: 0DB68ZX Excision of Stomach, Via Natural or Artificial Opening Endoscopic, Diagnostic (ICD-10-PCS; principal; 2017-10-23 18:20)
PROC: 4A023N7 Measurement of Cardiac Sampling and Pressure, Left Heart, Percutaneous Approach (ICD-10-PCS; 2017-10-25)
PROC: B2111ZZ Fluoroscopy of Multiple Coronary Arteries using Low Osmolar Contrast (ICD-10-PCS; 2017-10-25)
DX: K92.2 Gastrointestinal hemorrhage, unspecified (principal); I21.4 Non-ST elevation (NSTEMI) myocardial infarction; E11.622 Type 2 diabetes mellitus with other skin ulcer; E87.1 Hypo-osmolality and hyponatremia; L97.319 Non-pressure chronic ulcer of right ankle with unspecified severity; L03.115 Cellulitis of right lower limb; D50.0 Iron deficiency anemia secondary to blood loss (chronic); K25.7 Chronic gastric ulcer without hemorrhage or perforation; E78.5 Hyperlipidemia, unspecified; G89.21 Chronic pain due to trauma; I25.10 Atherosclerotic heart disease of native coronary artery without angina pectoris; L97.519 Non-pressure chronic ulcer of other part of right foot with unspecified severity; N40.0 Benign prostatic hyperplasia without lower urinary tract symptoms; K44.9 Diaphragmatic hernia without obstruction or gangrene; I45.10 Unspecified right bundle-branch block; R00.0 Tachycardia, unspecified; G89.29 Other chronic pain; I10 Essential (primary) hypertension; Z79.84 Long term (current) use of oral hypoglycemic drugs; Z74.01 Bed confinement status; Z87.891 Personal history of nicotine dependence; Z85.038 Personal history of other malignant neoplasm of large intestine; V89.2XXS Person injured in unspecified motor-vehicle accident, traffic, sequela; Z87.11 Personal history of peptic ulcer disease
CPT/HCPCS: 36430; 71045; 73630; 74177; 75635; 76937; 80048; 80053; 80202; 81001; 82272; 82550; 82552; 82948; 83690; 83735; 84100; 84484; 85002; 85014; 85018; 85025; 85027; 86403; 86850; 86900; 86901; 86920; 87070; 87147; 87186; 87205; 88305; 93005; 93306; 93454; 96374; 96375; C1725; C1769; C1887; C1893; C9113; J1644; J1815; J1885; J1940; J2250; J2270; J3010; J3370; J7040; J7050; J7120; P9016; Q9967

== ENCOUNTER 2018-02-12 20:47 | Inpatient (IN) | payer MEDICARE, OTHER ==
[~2018-02-12] VITALS: Ht 177.8 cm; Wt 113.3 kg
[~2018-02-12 20:47] MED LIST: ASPI-147 PO; CARA1TAB6 PO; CENTCHW4 CHEW; CEPH-460 PO; COLA100C5 PO; DIPH25CA PO; FERR325T20 PO; FISHCAP4 PO; GLIP5TAB8 PO; ISOS60TA PO; LOSA25TA PO; METF500T PO; PANT40TA3 PO; SIMV20TA PO; SITA50 PO; TAMS0.4C4
[2018-02-12 21:19] VITALS: BP 139/83; PULSE 130; RESP 34; TEMP 103.7; TEMP 98.5; O2SAT 94
[2018-02-12] MEDS ORDERED: SODIUM CHLOR 0.9% 1000 ML INJ 1,000 ML IV ONE ×2 (21:45→23:45)
[2018-02-12] MEDS ORDERED: PIPERACIL-TAZO 4.5 GM PREMIX 100 ML IV ONE (21:45)
[2018-02-12] MEDS ORDERED: ACETAMINOPHEN 650 MG SUPP RECTAL ONE (21:45)
[2018-02-12] MEDS ORDERED: METOCLOPRAMIDE HCL 10 MG/2 ML VIAL IV PUSH ONE (21:45)
[2018-02-12] MEDS: SODIUM CHLORIDE 0.9% FLUSH 10 ML FLUSH IV FLUSH PRN (21:58)
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
[2018-02-12 22:26] LABS: BASOPHIL % 0.2 % (0.0-2.0); HEMATOCRIT 42.9 % (39.0-51.0); HEMOGLOBIN 14.3 GM/DL (13.0-17.0); LYMPH % 6.1 % (9.0-44.0); LYMPHOCYTE # 1.1 TH/MM3 (1.0-4.8); MEAN CORPUSCULAR HEMOGLOBIN 27.1 PG (27.0-34.0); MEAN CORPUSCULAR HGB CONC 33.4 % (32.0-36.0); MEAN PLATELET VOLUME 9.1 FL (7.0-11.0); MONO % 4.2 % (0.0-8.0); MONOCYTE # 0.7 TH/MM3 (0-0.9); NEUT % 89.5 % (16.0-70.0); PLATELET COUNT 179 TH/MM3 (150-450); RED BLOOD COUNT 5.29 MIL/MM3 (4.50-5.90); WHITE BLOOD COUNT 17.9 TH/MM3 (4.0-11.0)
[2018-02-12 22:33] LABS: ALBUMIN 3.7 GM/DL (3.4-5.0); AST (GOT) 133 U/L (15-37); BICARBONATE 20.9 MEQ/L (21.0-32.0); BLOOD UREA NITROGEN 13 MG/DL (7-18); CALCIUM 9.2 MG/DL (8.5-10.1); CHLORIDE 95 MEQ/L (98-107); CREATININE 1.33 MG/DL (0.60-1.30); GLOMERULAR FILTRATION RATE 55 ML/MIN (>89); GLUCOSE,RANDOM 297 MG/DL (74-106); MAGNESIUM 1.9 MG/DL (1.5-2.5); SODIUM (NA) 131 MEQ/L (136-145)
--- NOTE | 2018-02-12 22:35 | RADRPT ---
EXAM DATE: 02/12/2018 10:29 PM EDT AGE/SEX: 62 years / Male INDICATIONS: Shortness of breath- Evaluate for free air. CLINICAL DATA: This is the patient's initial encounter. Patient reports that signs and symptoms have been present for 1 day and indicates a pain score of Nonresponsive. MEDICAL/SURGICAL HISTORY: Non-responsive. Non-responsive. COMPARISON: . FINDINGS: A single AP view of the chest demonstrates a focal mild infiltrate in the left lung base. This is new compared to the prior study. The right lung is grossly clear.. The cardiomediastinal contours are u nremarkable and stable. Osseous structures are intact and stable. No definite free air is demonstra lennie. CONCLUSION: 1. New mild focal infiltrate in the left lung base. 2. No evidence of free air. Electronically signed by: Harinder Morris MD 02/12/2018 10:33 PM EDT
[2018-02-12 22:36] LABS: INTERNATIONAL NORMALIZED RATIO 1.2 RATIO; PROTHROMBIN TIME - PATIENT 12.1 SEC (9.8-11.6)
[2018-02-12] MEDS ORDERED: FUROSEMIDE 40 MG/4 ML VIAL IV PUSH ONE (22:45)
[2018-02-12] MEDS ORDERED: NITROGLYCERIN 2% OINT 1 GM PACKET TOPICAL ONE (22:45)
[2018-02-12 23:00] LABS: ALKALINE PHOSPHATASE 71 U/L (45-117); ALT (GPT) 53 U/L (12-78); TOTAL BILIRUBIN ADULT 1.4 MG/DL (0.2-1.0); TOTAL PROTEIN 8.5 GM/DL (6.4-8.2)
[2018-02-12] MEDS ORDERED: HYDROmorphone HCL PF 2 MG/ML VIAL IV PUSH ONE (23:00)
[2018-02-12 23:07] LABS: TROPONIN I 0.86 NG/ML (0.02-0.05)
[2018-02-12 23:21] VITALS: O2SAT 100
[2018-02-12 23:22] VITALS: O2SAT 98
[2018-02-12 23:31] VITALS: BP 116/56; PULSE 127; RESP 24; TEMP 102.9; O2SAT 99
[2018-02-12] MEDS ORDERED: IOHEXOL 350 MG/ML 10 ML VIAL (for RAD DIAG) IVCONTRAST ONE (23:32)
[2018-02-12] MEDS ORDERED: PANTOPRAZOLE SODIUM 40 MG VIAL IV PUSH ONE (23:45)
--- NOTE | 2018-02-12 23:50 | RADRPT ---
EXAM DATE: 02/12/2018 11:29 PM EDT AGE/SEX: 62 years / Male INDICATIONS: Trauma, fall. CLINICAL DATA: This is the patient's initial encounter. Patient reports that signs and symptoms have been present for 1 day and indicates a pain score of 8/10. MEDICAL/SURGICAL HISTORY: Cardiovascular disease. Hypertension. Carcinoma, colon. Colon resection . RADIATION DOSE: 66.34 CTDI (mGy) ;Tabletop exam COMPARISON: No prior exams available for comparison. TECHNIQUE: CT of the head without contrast. Using automated exposure control and adjustment of the mA and/or kV according to patient size, radiation dose was kept as low as reasonably achievable to ob tain optimal diagnostic quality images. FINDINGS: There is no evidence for intracranial hemorrhage, mass effect, mass lesions, or edema. The visualize d bony structures appear intact. Moderate degree of brain atrophy is seen. Moderate periventricular white matter changes are seen nonspecific mostly consistent with chronic small vessel ischemic change s. There are no signs of acute infarction for technique. Ventriculomegaly is present probably due to chronic atrophic changes CONCLUSION: Chronic small vessel ischemic and atrophic changes. Electronically signed by: Eimlia Rizvi MD 02/12/2018 11:48 PM EDT
--- NOTE | 2018-02-12 23:52 | RADRPT ---
EXAM DATE: 02/12/2018 11:39 PM EDT AGE/SEX: 62 years / Male INDICATIONS: Trauma, fall. CLINICAL DATA: This is the patient's initial encounter. Patient reports that signs and symptoms have been present for 1 day and indicates a pain score of 4/10. MEDICAL/SURGICAL HISTORY: Cardiovascular disease. Hypertension. Carcinoma, colon. Colon resec tion. RADIATION DOSE: 29.01 CTDI (mGy) COMPARISON: No prior exams available for comparison. TECHNIQUE: Contiguous axial images were obtained using helical multirow detector technique. The vol umetric data was post-processed with multiplanar reconstruction in oblique axial, sagittal, and coron al planes. Using automated exposure control and adjustment of the mA and/or kV according to patient s ize, radiation dose was kept as low as reasonably achievable to obtain optimal diagnostic quality montez ges. FINDINGS: No significant subluxation or soft tissue swelling is seen. Degenerative spondylosis is present at m ultiple levels to a slight degree worse at C5-6 and C6-7. Macro fracture C2-C3: No appreciable compromise to the thecal sac, exiting nerve roots are seen. The neural foramin a are patent bilaterally. No appreciable thecal sac stenosis is seen. C3-C4: No appreciable compromise to the thecal sac, exiting nerve roots are seen. The neural foramin a are patent bilaterally. No appreciable thecal sac stenosis is seen. C4-C5: No appreciable compromise to the thecal sac, exiting nerve roots are seen. The neural foramin a are patent bilaterally. No appreciable thecal sac stenosis is seen. C5-C6: No appreciable compromise to the thecal sac, exiting nerve roots are seen. The neural foramin a are patent bilaterally. No appreciable thecal sac stenosis is seen. C6-C7: No appreciable compromise to the thecal sac, exiting nerve roots are seen. The neural foramin a are patent bilaterally. No appreciable thecal sac stenosis is seen. C7-T1: No appreciable compromise to the thecal sac, exiting nerve roots are seen. The neural foramin a are patent bilaterally. No appreciable thecal sac stenosis is seen. CONCLUSION: Unremarkable study except for slight degenerative spondylosis. Electronically signed by: Emilia Rizvi MD 02/12/2018 11:51 PM EDT
--- NOTE | 2018-02-12 23:57 | HHI.HP ---
[facility] Service Critical Care Medicine Primary Care Physician Non-Staff Admission Diagnosis nstemi;sepsis;rhabdomyolysis Diagnosis: Chief Complaint: fall Travel History International Travel<30 Days: No Contact w/Intl Traveler <30 Da: No Traveled to Known Affected Are: No History of Present Illness This is a 62yM with history of prior stroke, DM, CAD who presents after his brother found him after he fell. He states he was on the floor for > 18 hours. He endorses a week of fatigue, fever, chills. denies any other symptoms. denies chest pain, shortness of breath, nausea, vomiting, constipation, diarrhea. does endorse generalized abdominal pain which is mild. in the ER he was tachycardic and very diaphoretic. he has laboratory evidence of CK 7000, wbc 17k, Cr 1.3, trop 0.8. CT chest/abd/pelvis unremarkable. CT head and c-spine negative for trauma. febrile to 103 in the ER. given 2L NS ivf with improvement in his HR. remainder of ROS negative. Review of Systems Constitutional: COMPLAINS OF: Fever, Chills, DENIES: Fatigue Endocrine: DENIES: Heat/cold intolerance Eyes: DENIES: Blurred vision, Diplopia, Eye inflammation Respiratory: DENIES: Apneas, Cough, Wheezing, Hemoptysis, Sputum production, Shortness of breath Cardiovascular: DENIES: Chest pain, Palpitations, Syncope, Dyspnea on Exertion , Lower Extremity Edema, Orthopnea Gastrointestinal: COMPLAINS OF: Abdominal pain, DENIES: Black stools, Bloody stools, Constipation, Diarrhea, Nausea, Vomiting Genitourinary: DENIES: Urinary frequency, Urinary incontinence, Urgency, Hematuria, Dysuria, Nocturia Musculoskeletal: DENIES: Joint pain, Muscle aches, Stiffness Integumentary: DENIES: Abnormal pigmentation Hematologic/lymphatic: DENIES: Bruising Neurologic: DENIES: Abnormal gait, Headache, Localized weakness, Paresthesias, Seizures Psychiatric: DENIES: Anxiety, Confusion, Mood changes Past Family Social History Allergies: Coded Allergies: No Known Allergies (Unverified , 10/21/17) Past Medical History Diabetes Hyperlipidemia Chronic pain syndrome bilateral lower extremity ulcers BPH Hypertension Colon cancer s/p partial colectomy prior NSTEMI severe 2-vessel CAD managed medically old RBBB prior GI bleed anemia secondary to GI bleeding Arthritis CHF, unknown type GERD Past Surgical History partial colectomy skin grafts to right ankle left ankle surgery Reported Medications Ferosul (Ferrous Sulfate) 325 Mg (65 Mg Iron) Tablet 325 Mg PO DAILY 30 Days Pantoprazole (Pantoprazole Sodium) 40 Mg Tab 40 Mg PO Q12HR 30 Days Carafate (Sucralfate) 1 Gram Tab 1 Gm PO BIDAC 30 Days Isosorbide Mononitrate ER (Isosorbide Mononitrate) 60 Mg Tab 120 Mg PO DAILY@07 30 Days Fish Oil + D3 (Fish Oil-Cholecalciferol) 1,200-1,000 Mg-Unit Cap 2 Cap PO BID Tamsulosin (Tamsulosin HCl) 0.4 Mg Cap 0.4 Mg HS Centrum (Multiple Vitamins W/ Minerals) 1 Chew 1 Tab CHEW DAILY Colace (Docusate Sodium) 100 Mg Capsule 1 Caplet PO DAILY Diphenhydramine (Diphenhydramine HCl) 25 Mg Cap 50 Mg PO Q12H PRN Ecotrin Low Strength (Aspirin) 81 Mg Tabdr 81 Mg PO DAILY Simvastatin 20 Mg Tab 20 Mg PO DAILY Januvia (Sitagliptin Phosphate) 50 Mg Tab 50 Mg PO DAILY Losartan (Losartan Potassium) 25 Mg Tab 25 Mg PO DAILY Glipizide 5 Mg Tab 5 Mg PO BID Take 30 minutes before a meal Metformin (Metformin HCl) 500 Mg Tab 500 Mg PO BID Active Ordered Medications See MAR Family History reviewed and found to be noncontributory to his acute illness Social History denies tob, etoh, doa. Physical Exam Vital Signs Vital Signs Date Time Temp Pulse Resp B/P (MAP) Pulse Ox O2 Delivery O2 Flow Rate FiO2 02/12/18 23:31 102.9 127 24 116/56 (76) 99 Nasal Cannula 3.00 02/12/18 23:22 98 Nasal Cannula 3.00 02/12/18 23:21 100 50 02/12/18 21:19 103.7 130 34 139/83 (101) 94 Physical Exam gen: obese male, lying in bed, quite diaphoretic. heent: nc. at. perrl. mucous membranes dry. neck: no jvd. trachea midline. chest: equal chest rise. nc o2. cv: tachycardic rate of 115, regular rhythm. sinus. abd: soft, obese, nontender, nondistended. no guarding. extr: right lower extremity wrapped in an young bandage. when dressing is removed , right ankle is swollen and edematous, erythematous. there is a small area approximately 1cm x 2cm ulceration. this appears to be well healing with good granulation tissue. there is no area of purulence. left ankle also appears erythematous and edematous with mild tenderness to palpation. no purulent drainage. neuro: RASS 0. GCS 15. follows commands. no focal deficits. Bedside critical care ultrasound: technically difficult with poor windows due to body habitus. in subcostal view, grossly preserved biventricular function. does appear to have significant respiratory variation in IVC diameter. no pericardial effusion. Laboratory Laboratory Tests Test 02/12/18 21:45 02/12/18 22:13 White Blood Count 17.9 Red Blood Count 5.29 Hemoglobin 14.3 Hematocrit 42.9 Mean Corpuscular Volume 81.0 Mean Corpuscular Hemoglobin 27.1 Mean Corpuscular Hemoglobin Concent 33.4 Red Cell Distribution Width 17.0 Platelet Count 179 Mean Platelet Volume 9.1 Neutrophils (%) (Auto) 89.5 Lymphocytes (%) (Auto) 6.1 Monocytes (%) (Auto) 4.2 Eosinophils (%) (Auto) 0.0 Basophils (%) (Auto) 0.2 Neutrophils # (Auto) 16.0 Lymphocytes # (Auto) 1.1 Monocytes # (Auto) 0.7 Eosinophils # (Auto) 0.0 Basophils # (Auto) 0.0 CBC Comment DIFF FINAL Differential Comment Prothrombin Time 12.1 Prothromb Time International Ratio 1.2 Activated Partial Thromboplast Time 28.7 Blood Urea Nitrogen 13 Creatinine 1.33 Random Glucose 297 Total Protein 8.5 Albumin 3.7 Calcium Level 9.2 Magnesium Level 1.9 Alkaline Phosphatase 71 Aspartate Amino Transf (AST/SGOT) 133 Alanine Aminotransferase (ALT/SGPT) 53 Total Bilirubin 1.4 Sodium Level 131 Potassium Level 3.6 Chloride Level 95 Carbon Dioxide Level 20.9 Anion Gap 15 Estimat Glomerular Filtration Rate 55 Lactic Acid Level 4.6 Ammonia LESS THAN 10 Total Creatine Kinase 7695 Creatine Kinase MB 9.1 Creatine Kinase MB % 0.1 Troponin I 0.86 Lipase 50 Ethyl Alcohol Level LESS THAN 3 B-Hydroxybutyrate 1.03 Blood Gas Puncture Site LT RADIAL Blood Gas Patient Temperature 98.6 Blood Gas HCO3 21 Blood Gas Base Excess -2.5 Blood Gas Oxygen Saturation 90 Arterial Blood pH 7.48 Arterial Blood Partial Pressure CO2 28 Arterial Blood Partial Pressure O2 59 Arterial Blood Oxygen Content 17.0 Arterial Blood Carboxyhemoglobin 1.3 Arterial Blood Methemoglobin 0.7 Blood Gas Hemoglobin 13.5 Blood Gas Inspired Oxygen 21 Date/Time Source Procedure Growth Status 02/12/18 21:55 Blood Peripheral Aerobic Blood Culture Pending Received 02/12/18 21:55 Blood Peripheral Anaerobic Blood Culture Pending Received Result Diagram: 02/12/18214402/12/182144 Imaging Last Impressions Chest X-Ray 02/12/182205 Signed Impressions: CONCLUSION: 1. New mild focal infiltrate in the left lung base. 2. No evidence of free air. Head CT 02/12/18 0000 Signed Impressions: CONCLUSION: Chronic small vessel ischemic and atrophic changes. Cervical Spine CT 02/12/18 0000 Signed Impressions: CONCLUSION: Unremarkable study except for slight degenerative spondylosis. CT Angiography 02/12/18 0000 Signed Impressions: CONCLUSION: 1. Possible nodules within the thyroid gland mainly on the right side. 2. Slight fatty liver. 3. No definite pulmonary embolus. Abdomen/Pelvis CT 02/12/18 0000 Signed Impressions: CONCLUSION: 1. Slight fatty liver. 2. Probable left adrenal adenoma. Septic Shock Reassessment Septic shock perfusion: reassessment completed Caprini VTE Risk Assessment Caprini VTE Risk Assessment: Mod/High Risk (score >= 2) Caprini Risk Assessment Model Point Value = 1 Point Value = 2 Point Value = 3 Point Value = 5 Age 41-60 Minor surgery BMI > 25 kg/m2 Swollen legs Varicose veins or History of unexplained or recurrent spontaneous Oral contraceptives or hormone replacement Sepsis (< 1 month) Serious lung disease, including pneumonia (< 1 month) Abnormal pulmonary function Acute myocardial infarction Congestive heart failure (< 1 month) History of inflammatory bowel disease Medical patient at bed rest Age 61-74 Arthroscopic surgery Major open surgery (> 45 min) Laparoscopic surgery (> 45 min) Malignancy Confined to bed (> 72 hours) Immobilizing plaster cast Central venous access Age >= 75 History of VTE Family history of VTE Factor V Leiden Prothrombin [id number] Lupus anticoagulant Anticardiolipin antibodies Elevated serum homocysteine Heparin-induced thrombocytopenia Other congenital or acquired thrombophilia Stroke (< 1 month) Elective arthroplasty Hip, pelvis, or leg fracture Acute spinal cord injury (< 1 month) Prophylaxis Regimen Total Risk Factor Score Risk Level Prophylaxis Regimen 0-1 Low Early ambulation 2 Moderate Order ONE of the following: *Sequential Compression Device (SCD) *Heparin 5000 units SQ BID 3-4 Higher Order ONE of the following medications: *Heparin 5000 units SQ TID *Enoxaparin/Lovenox 40 mg SQ daily (WT < 150 kg, CrCl > 30 mL/min) *Enoxaparin/Lovenox 30 mg SQ daily (WT < 150 kg, CrCl > 10-29 mL/min) *Enoxaparin/Lovenox 30 mg SQ BID (WT < 150 kg, CrCl > 30 mL/min) AND/OR *Sequential Compression Device (SCD) 5 or more Highest Order ONE of the following medications: *Heparin 5000 units SQ TID (Preferred with Epidurals) *Enoxaparin/Lovenox 40 mg SQ daily (WT < 150 kg, CrCl > 30 mL/min) *Enoxaparin/Lovenox 30 mg SQ daily (WT < 150 kg, CrCl > 10-29 mL/min) *Enoxaparin/Lovenox 30 mg SQ BID (WT < 150 kg, CrCl > 30 mL/min) AND *Sequential Compression Device (SCD) Assessment and Plan Assessment and Plan Assessment: 62yM with severe rhabdomyolysis and severe sepsis of unclear source at this time: likely foot cellulitis as a source vs. UTI as a source (u/a pending at this time). clearly infected with fever, leukocytosis, tachycardia, and end-organ dysfunction from his sepsis. will keep on empiric abx, fluid resuscitate. Highly complex with multiple organ systems involved. Severe sepsis - source either LE cellulitis or urine - MRI bilateral feet - podiatry consult - zosyn 3.375gm iv q6h - blood cultures - urine culture - sputum culture - does not appear to have pulmonary source of sepsis: no cough or increased o2 requirement. - ivf Acute Severe Rhabdomyolysis - trend ck - LR @ 150 cc/hr - place best - strict i/o's Acute kidney injury - secondary to severe sepsis and rhabdo - daily bmp - strict i/os - u/a Acute Type II NSTEMI, Elevated troponin, likely secondary to demand ischemia - trend troponin - given history of GI bleed and multiple organ dysfunction, in the setting of asymptomatic without overt chest pain, unlikely to be ACS and we will hold off on anticoagulation at this time. - EKG without ST elevation - CT pulmonary angiogram negative for PE. Congestive Heart Failure, unknown type - likely with preserved EF - clinically appears intravascularly volume deplete - gentle mivf - does not appear to be acute exacerbation Hyperglycemia Diabetes Mellitus, type 2 - SSI med scale, q6h Lactic Acidosis - secondary to severe sepsis - trend lactates - ivf Elevated LFTs - secondary to severe sepsis - trend Elevated T bili - likely secondary to severe sepsis - trend Hyponatremia - may be secondary to total body volume overload and history of CHF. - trend on daily bmp advance diet as tolerated SCDs SQH protonix dispo: admit to ICU. Ramon An MD February 12, 2018 23:57
--- NOTE | 2018-02-12 23:58 | RADRPT ---
EXAM DATE: 02/12/2018 11:30 PM EDT AGE/SEX: 62 years / Male INDICATIONS: Shortness of breath, diaphoretic. CLINICAL DATA: This is the patient's initial encounter. Patient reports that signs and symptoms have been present for 1 day and indicates a pain score of 0/10. MEDICAL/SURGICAL HISTORY: Cardiovascular disease. Carcinoma, colon. Hypertension. GERD. Colon r esection. RADIATION DOSE: 8.91 CTDI (mGy) COMPARISON: No prior exams available for comparison. TECHNIQUE: Volumetric scanning was performed using a multi-row detector CT scanner during bolus infu sabrina of 100 ml Omnipaque 350 (iohexol) nonionic water-soluble contrast as a cumulative dose for mult iple exams. The data was post processed with a variety of visualization algorithms including full vol ume maximum intensity projection and sliding thin slab reformation. Using automated exposure control and adjustment of the mA and/or kV according to patient size, radiation dose was kept as low as reas onably achievable to obtain optimal diagnostic quality images. FINDINGS: The lungs are clear without infiltrate, nodule, or mass. There is no pleural effusion. No appreciab le pathological adenopathy is seen within the mediastinum. The thyroid gland is inhomogeneous mainly on the right side and may have tiny nodules within it not adequately characterized. The liver appears slightly fatty. No definite pulmonary embolus is identified, however distal lower lobe branches are difficult to evaluate due to lack of good bolus of contrast in this area. CONCLUSION: 1. Possible nodules within the thyroid gland mainly on the right side. 2. Slight fatty liver. 3. No definite pulmonary embolus. Electronically signed by: Emilia Rizvi MD 02/12/2018 11:57 PM EDT
[2018-02-13] VITALS (20 sets, daily range): BP systolic 114–202; BP diastolic 62–91; PULSE 83–128; RESP 20–45; TEMP 97.5–102.7; O2SAT 92–100
[2018-02-13] MEDS ORDERED: ASPIRIN 81 MG CHEW TAB CHEW ONE
[2018-02-13] MEDS ORDERED: POTASSIUM PHOSPHATE MONOBASIC 500 MG TAB PO/TUBE PRN
[2018-02-13] MEDS ORDERED: POTASSIUM CHLOR 20 MEQ PREMIX 100 ML IV PRN
[2018-02-13] MEDS ORDERED: POTASSIUM CHLOR 40 MEQ PREMIX 100 ML IV PRN ×2
[2018-02-13] MEDS ORDERED: MAGNESIUM SULFATE INJ 2 GM in SODIUM CHLORIDE 0.9% INJ 96 ML IV PRN ×2
[2018-02-13] MEDS ORDERED: POTASSIUM CHLORIDE 25 MEQ EFFERVESCENT TAB PO PRN
[2018-02-13] MEDS ORDERED: MAGNESIUM SULFATE INJ 4 GM in SODIUM CHLORIDE 0.9% INJ 92 ML IV PRN ×2
[2018-02-13] MEDS ORDERED: SODIUM PHOSPHATE INJ 30 MMOL in SODIUM CHLOR 0.9% 250 ML INJ 240 ML IV PRN ×2
[2018-02-13] MEDS ORDERED: POTASSIUM PHOSPHATE INJ 30 MMOL in SODIUM CHLOR 0.9% 250 ML INJ 250 ML IV PRN ×2
[2018-02-13] MEDS ORDERED: NURSING INFORMATION XX SCH
[2018-02-13] MEDS ORDERED: CHLORHEXIDINE GLUCONATE 2 % 1 PACK (2 CLOTHS) TOP PRN
[2018-02-13] MEDS ORDERED: MAGNESIUM OXIDE 400 MG TAB PO PRN
[2018-02-13] MEDS ORDERED: POTASSIUM PHOSPHATE MONOBASIC 500 MG TAB PO PRN
[2018-02-13] MEDS ORDERED: DEXTROSE 50% IN WATER 50 ML VIAL(D50) IV PUSH PRN
--- NOTE | 2018-02-13 00:03 | RADRPT ---
EXAM DATE: 02/12/2018 11:31 PM EDT AGE/SEX: 62 years / Male INDICATIONS: Abdominal pain, hemoptysis. CLINICAL DATA: This is the patient's initial encounter. Patient reports that signs and symptoms have been present for 1 day and indicates a pain score of 5/10. MEDICAL/SURGICAL HISTORY: Cardiovascular disease. Hypertension. Carcinoma, colon. GERD. GI B leed. Colon resection. ORAL CONTRAST: No oral contrast ingested. RADIATION DOSE: 19.54 CTDI (mGy) COMPARISON: No prior exams available for comparison. TECHNIQUE: Multiple contiguous axial images were obtained through the abdomen and pelvis following b olus infusion of 100 ml Omnipaque 350 (iohexol) nonionic water-soluble contrast as a cumulative dos e for multiple exams. No oral contrast ingested. Using automated exposure control and adjustment of the mA and/or kV according to patient size, the radiation dose was kept as low as reasonably achievab le to obtain optimal diagnostic quality images. FINDINGS: Abdomen CT: The spleen, pancreas, kidneys, right adrenal are unremarkable. Approximate 1.6 cm left adrenal nodule is seen probably an adenoma. The liver is mildly fatty with focal fat at the insertion site of the f alciform ligament. There is no evidence for any appreciable pathological adenopathy, free fluid, or b owel obstruction. There are atherosclerotic calcifications involving the aorta and iliac arteries ch ronic in nature. Pelvic CT: There is no evidence for mass, abscess formation, or any significant adenopathy within the pelvis. T here is moderate amount of stool in the colon. There are scattered diverticuli within the colon main ly the sigmoid colon without signs of diverticulitis for technique. CONCLUSION: 1. Slight fatty liver. 2. Probable left adrenal adenoma. Electronically signed by: Emilia Rizvi MD 02/13/2018 12:02 AM EDT
[2018-02-13 01:29] LABS: BILIRUBIN, URINE NEG (NEG); BLOOD, URINE LARGE (NEG); GLUCOSE,URINE 1000 mg/dL (NEG); KETONE, URINE 80 mg/dL (NEG); MUCUS URINE FEW /lpf (OCC); NITRITE,URINE NEG (NEG); PH, URINE 5.5 (5.0-8.5); SQUAMOUS EPITHELIAL CELL URINE 1 /hpf (0-5); URINE COLOR YELLOW (YELLW/STRAW); URINE LEUKOCYTE ESTERASE NEG (NEG)
[2018-02-13] MEDS: LACTATED RINGER'S 1000 ML INJ 1,000 ML IV SCH ×3 (01:29→21:20)
[2018-02-13] MEDS: CHLORHEXIDINE GLUCONATE 2 % 1 PACK (2 CLOTHS) TOP SCH (01:30)
[2018-02-13] MEDS: INSULIN NovoLIN REGULAR SUPPLEMENTAL SCALE SQ SCH ×2 (02:59→08:00)
[2018-02-13] MEDS: PIPERACIL-TAZO 3.375 GM PREMIX 50 ML IV SCH ×2 (03:00→09:56)
[2018-02-13] MEDS: RESP: ALBUTEROL 2.5 MG/IPRATROPIUM 0.5 MG NEB (SCH) INH ×4 (03:13→19:55)
[2018-02-13 04:12] LABS: HEMATOCRIT 37.8 % (39.0-51.0); HEMOGLOBIN 12.5 GM/DL (13.0-17.0); MEAN CELL VOLUME 81.2 FL (80.0-100.0); MEAN CORPUSCULAR HEMOGLOBIN 26.9 PG (27.0-34.0); MEAN CORPUSCULAR HGB CONC 33.1 % (32.0-36.0); MEAN PLATELET VOLUME 9.1 FL (7.0-11.0); PLATELET COUNT 156 TH/MM3 (150-450); RED BLOOD COUNT 4.66 MIL/MM3 (4.50-5.90); RED CELL DISTRIBUTION WIDTH 17.1 % (11.6-17.2); WHITE BLOOD COUNT 25.1 TH/MM3 (4.0-11.0)
--- NOTE | 2018-02-13 04:23 | HHI.CCPN ---
Subjective Remarks/Hospital Course Hospital Course: This is a 62yM with history of prior stroke, DM, CAD who presents after his brother found him after he fell. He states he was on the floor for > 18 hours. He endorses a week of fatigue, fever, chills. denies any other symptoms. denies chest pain, shortness of breath, nausea, vomiting, constipation, diarrhea. does endorse generalized abdominal pain which is mild. in the ER he was tachycardic and very diaphoretic. he has laboratory evidence of CK 7000, wbc 17k, Cr 1.3, trop 0.8. CT chest/abd/pelvis unremarkable. CT head and c-spine negative for trauma. febrile to 103 in the ER. given 2L NS ivf with improvement in his HR. remainder of ROS negative. Subjective: 02/13: somewhat improved, feeling slightly better. remains febrile. cultures still pending. repeat lactate pending. HR improving. Objective Vital Signs Date Time Temp Pulse Resp B/P (MAP) Pulse Ox O2 Delivery O2 Flow Rate FiO2 02/13/18 03:17 99 Nasal Cannula 2.00 02/13/18 02:00 110 02/13/18 01:13 99.4 20 121/70 (87) 02/12/18 23:21 50 Intake and Output 02/13/18 02/13/18 02/13/18 07:59 15:59 23:59 Intake Total 2150 ml Balance 2150 ml Result Diagram: 02/13/18 0350 02/12/18 2145 Other Results Laboratory Tests Test 02/12/18 22:13 Blood Gas Puncture Site LT RADIAL Blood Gas Patient Temperature 98.6 Blood Gas HCO3 21 mmol/L (22-26) Blood Gas Base Excess -2.5 mmol/L (-2-2) Blood Gas Oxygen Saturation 90 % (90-100) Arterial Blood pH 7.48 (7.380-7.420) Arterial Blood Partial Pressure CO2 28 mmHg (38-42) Arterial Blood Partial Pressure O2 59 mmHG (61-120) Arterial Blood Oxygen Content 17.0 Vol % (12.0-20.0) Arterial Blood Carboxyhemoglobin 1.3 % (0-4) Arterial Blood Methemoglobin 0.7 % (0-2) Blood Gas Hemoglobin 13.5 G/DL (12.0-16.0) Blood Gas Inspired Oxygen 21 % Imaging Last Impressions Chest X-Ray 02/12/182205 Signed Impressions: CONCLUSION: 1. New mild focal infiltrate in the left lung base. 2. No evidence of free air. Head CT 02/12/18 Signed Impressions: CONCLUSION: Chronic small vessel ischemic and atrophic changes. Cervical Spine CT 02/12/18 Signed Impressions: CONCLUSION: Unremarkable study except for slight degenerative spondylosis. CT Angiography 02/12/18 Signed Impressions: CONCLUSION: 1. Possible nodules within the thyroid gland mainly on the right side. 2. Slight fatty liver. 3. No definite pulmonary embolus. Abdomen/Pelvis CT 02/12/18 Signed Impressions: CONCLUSION: 1. Slight fatty liver. 2. Probable left adrenal adenoma. Objective Remarks gen: obese male, lying in bed heent: nc. at. perrl. mucous membranes moist neck: no jvd. trachea midline. chest: equal chest rise. nc o2. cv: tachycardic rate but improving, regular rhythm. sinus. abd: soft, obese, nontender, nondistended. no guarding. extr: right ankle is swollen and edematous, erythematous. there is a small area approximately 1cm x 2cm ulceration. this appears to be well healing with good granulation tissue. there is no area of purulence. left ankle also appears erythematous and edematous with mild tenderness to palpation. no purulent drainage. neuro: RASS 0. GCS 15. follows commands. no focal deficits. A/P Assessment and Plan Assessment: 62yM with severe rhabdomyolysis and severe sepsis of unclear source at this time: likely foot cellulitis as a source vs. UTI as a source (u/a pending at this time). clearly infected with fever, leukocytosis, tachycardia, and end-organ dysfunction from his sepsis. continue abx and ivf. trend CK. Highly complex with multiple organ systems involved. Severe sepsis - source likely LE cellulitis - MRI bilateral feet - podiatry consult - zosyn 3.375gm iv q6h - add vancomycin - f/u blood cultures - sputum culture - does not appear to have pulmonary source of sepsis: no cough or increased o2 requirement. - ivf Acute Severe Rhabdomyolysis - trend ck - LR @ 150 cc/hr - continue best - strict i/o's Acute kidney injury - secondary to severe sepsis and rhabdo - daily bmp - strict i/os - u/a Acute Type II NSTEMI, Elevated troponin, likely secondary to demand ischemia - trend troponin - given history of GI bleed and multiple organ dysfunction, in the setting of asymptomatic without overt chest pain, unlikely to be ACS and we will hold off on anticoagulation at this time. - EKG without ST elevation - CT pulmonary angiogram negative for PE. Congestive Heart Failure, unknown type - likely with preserved EF - clinically appears intravascularly volume deplete - gentle mivf - does not appear to be acute exacerbation Hyperglycemia Diabetes Mellitus, type 2 - SSI med scale, q6h Lactic Acidosis - secondary to severe sepsis - trend lactates - ivf Elevated LFTs - secondary to severe sepsis - trend Elevated T bili - likely secondary to severe sepsis - trend Hyponatremia - may be secondary to total body volume overload and history of CHF. - trend on daily bmp advance diet as tolerated SCDs SQH protonix dispo: remain in ICU. may be able to transfer out of ICU if clinically begins to improve. Ramon An MD February 13, 2018 04:23
[2018-02-13] MEDS ORDERED: VANCOMYCIN INJ 1,250 MG in SODIUM CHLOR 0.9% 250 ML INJ 250 ML IV ONE (04:30)
[2018-02-13] MEDS ORDERED: Vancomycin Consult Pharmacy 1 EA OTHER SCH (04:30)
[2018-02-13 05:08] LABS: ALKALINE PHOSPHATASE 54 U/L (45-117); ALT (GPT) 54 U/L (12-78); AST (GOT) 142 U/L (15-37); BICARBONATE 22.7 MEQ/L (21.0-32.0); BLOOD UREA NITROGEN 16 MG/DL (7-18); CALCIUM 8.6 MG/DL (8.5-10.1); CHLORIDE 100 MEQ/L (98-107); CREATININE 1.26 MG/DL (0.60-1.30); GLOMERULAR FILTRATION RATE 58 ML/MIN (>89); GLUCOSE,RANDOM 269 MG/DL (74-106); SODIUM (NA) 136 MEQ/L (136-145); TOTAL BILIRUBIN ADULT 1.2 MG/DL (0.2-1.0); TOTAL PROTEIN 6.9 GM/DL (6.4-8.2)
[2018-02-13] MEDS: HEPARIN SODIUM - SQ 10,000 UNITS/ML VIAL SQ SCH ×3 (05:24→21:23)
[2018-02-13 05:28] LABS: TROPONIN I 1.23 NG/ML (0.02-0.05)
[2018-02-13] MEDS ORDERED: VANCOMYCIN 1,000 MG/NS 250 ML IV ONE ×2 (07:15)
[2018-02-13] MEDS: PANTOPRAZOLE SODIUM 40 MG VIAL IV PUSH SCH (08:47)
--- NOTE | 2018-02-13 09:35 | PD.CONS ---
History of Present Illness Service Podiatry Consult Requested By Dr An Reason for Consult Heel ulcers Primary Care Physician Non-Staff Diagnoses: History of Present Illness This is a 62y/o male who was found to have fallen. He was also found to have wound to R foot that has had a graft in the past with two mika till in place. Podiatry was requested to evaluate the wound for infection source. Past Family Social History Allergies: Coded Allergies: No Known Allergies (Unverified , 10/21/17) Past Medical History Diabetes Hyperlipidemia Chronic pain syndrome bilateral lower extremity ulcers BPH Hypertension Colon cancer s/p partial colectomy prior NSTEMI severe 2-vessel CAD managed medically old RBBB prior GI bleed anemia secondary to GI bleeding Arthritis CHF, unknown type GERD Past Surgical History partial colectomy skin grafts to right ankle left ankle surgery Active Ordered Medications Current Medications Medications (Trade) Dose Ordered Sig/Ada Route Start Time Stop Time Status Last Admin (NS Flush) 2 ml UNSCH PRN IV FLUSH 02/12/18 21:45 02/12/18 21:58 Lactated Ringer's 1,000 ml @ 150 mls/hr Q6H40M IV 02/13/18 00:00 02/13/18 01:29 Potassium Chloride 100 ml @ 50 mls/hr Q2H PRN IV 02/13/18 00:00 Potassium Chloride 100 ml @ 50 mls/hr Q2H PRN IV 02/13/18 00:00 (K-Lyte Cl Eff) 50 meq UNSCH PRN PO 02/13/18 00:00 Potassium Chloride 100 ml @ 25 mls/hr UNSCH PRN IV 02/13/18 00:00 Potassium Chloride 100 ml @ 50 mls/hr Q2H PRN IV 02/13/18 00:00 Magnesium Sulfate 4 gm/Sodium Chloride 100 ml @ 50 mls/hr UNSCH PRN IV 02/13/18 00:00 (Mag-Ox) 800 mg UNSCH PRN PO 02/13/18 00:00 Magnesium Sulfate 2 gm/Sodium Chloride 100 ml @ 50 mls/hr UNSCH PRN IV 02/13/18 00:00 (K-Phos) 2,000 mg Q4H PRN PO 02/13/18 00:00 Sodium Phosphate 30 mmol/Sodium Chloride 250 ml @ 42 mls/hr UNSCH PRN IV 02/13/18 00:00 (K-Phos) 2,000 mg UNSCH PRN PO/TUBE 02/13/18 00:00 Potassium Phosphate 30 mmol/ Sodium Chloride 260 ml @ 42 mls/hr UNSCH PRN IV 02/13/18 00:00 (D50w (Vial) Inj) 25 ml UNSCH PRN IV PUSH 02/13/18 00:00 (NovoLIN R SUPPLEMENTAL SCALE) 1 ACHS AND 3AM SQ 02/13/18 03:00 02/13/18 08:00 (Duoneb Neb) 1 ampule Q6HR NEB INH 02/13/18 04:00 02/13/18 08:08 (Duoneb Neb) 1 ampule Q2HR NEB PRN INH 02/13/18 00:00 (Protonix Inj) 40 mg DAILY IV PUSH 02/13/18 09:00 02/13/18 08:47 ([facility]) 1 Q361D XX 02/13/18 00:00 (Chlorhexidine 2% Cloth) 3 pack Taper DAILY@04 TOP 02/13/18 04:00 02/09/19 03:59 02/13/18 01:30 (Chlorhexidine 2% Cloth) 3 pack UNSCH PRN TOP 02/13/18 00:00 Piperacillin Sod/ Tazobactam Sod 50 ml @ 100 mls/hr Q6H IV 02/13/18 04:00 02/13/18 03:00 (Heparin Inj) 5,000 units Q8HR SQ 02/13/18 06:00 02/13/18 05:24 Pharmacy Profile Note 0 ml @ 0 mls/hr UNSCH OTHER 02/13/18 04:30 Vancomycin HCl 2000 mg/Sodium Chloride 520 ml @ 250 mls/hr Q24H IV 02/14/18 06:00 ([facility] Ordered Lab Info) SPECIFIC LAB TO BE BERTHA... ONCE ONCE .XX 02/16/18 05:45 02/16/18 05:46 (Roxicodone) 5 mg Q4H PRN PO 02/13/18 09:00 UNV (Dilaudid Pf Inj) 0.2 mg Q4H PRN IV PUSH 02/13/18 09:00 UNV Family History noncontributory Social History denies tob, etoh, drugs Physical Exam Vital Signs Vital Signs Date Time Temp Pulse Resp B/P (MAP) Pulse Ox O2 Delivery O2 Flow Rate FiO2 02/13/18 08:08 98 Nasal Cannula 2.00 02/13/18 06:00 102 02/13/18 04:00 100.9 106 20 114/62 (79) 99 02/13/18 04:00 106 02/13/18 03:17 99 Nasal Cannula 2.00 02/13/18 02:12 98 Nasal Cannula 3.00 02/13/18 02:00 110 02/13/18 01:13 99.4 114 20 121/70 (87) 99 02/13/18 01:09 02/12/18 23:31 102.9 127 24 116/56 (76) 99 Nasal Cannula 3.00 02/12/18 23:22 98 Nasal Cannula 3.00 02/12/18 23:21 100 50 02/12/18 21:19 103.7 130 34 139/83 (101) 94 Physical Exam Stable foot right and left without sign of infection. Right plantar midfoot laterally with two mika in place. No fluctuance, no erythema, no calor, no sign of active infection present in either foot. Mika removed x 2 R plantar lateral midfoot. Minimal serous drainage present. Laboratory Laboratory Tests Test 02/12/18 21:45 02/12/18 22:13 02/13/18 00:50 02/13/18 01:20 White Blood Count 17.9 Red Blood Count 5.29 Hemoglobin 14.3 Hematocrit 42.9 Mean Corpuscular Volume 81.0 Mean Corpuscular Hemoglobin 27.1 Mean Corpuscular Hemoglobin Concent 33.4 Red Cell Distribution Width 17.0 Platelet Count 179 Mean Platelet Volume 9.1 Neutrophils (%) (Auto) 89.5 Lymphocytes (%) (Auto) 6.1 Monocytes (%) (Auto) 4.2 Eosinophils (%) (Auto) 0.0 Basophils (%) (Auto) 0.2 Neutrophils # (Auto) 16.0 Lymphocytes # (Auto) 1.1 Monocytes # (Auto) 0.7 Eosinophils # (Auto) 0.0 Basophils # (Auto) 0.0 CBC Comment DIFF FINAL Differential Comment Prothrombin Time 12.1 Prothromb Time International Ratio 1.2 Activated Partial Thromboplast Time 28.7 Blood Urea Nitrogen 13 Creatinine 1.33 Random Glucose 297 Total Protein 8.5 Albumin 3.7 Calcium Level 9.2 Magnesium Level 1.9 Alkaline Phosphatase 71 Aspartate Amino Transf (AST/SGOT) 133 Alanine Aminotransferase (ALT/SGPT) 53 Total Bilirubin 1.4 Sodium Level 131 Potassium Level 3.6 Chloride Level 95 Carbon Dioxide Level 20.9 Anion Gap 15 Estimat Glomerular Filtration Rate 55 Lactic Acid Level 4.6 Ammonia LESS THAN 10 Total Creatine Kinase 7695 Creatine Kinase MB 9.1 Creatine Kinase MB % 0.1 Troponin I 0.86 B-Type Natriuretic Peptide 753 Lipase 50 Ethyl Alcohol Level LESS THAN 3 B-Hydroxybutyrate 1.03 Blood Gas Puncture Site LT RADIAL Blood Gas Patient Temperature 98.6 Blood Gas HCO3 21 Blood Gas Base Excess -2.5 Blood Gas Oxygen Saturation 90 Arterial Blood pH 7.48 Arterial Blood Partial Pressure CO2 28 Arterial Blood Partial Pressure O2 59 Arterial Blood Oxygen Content 17.0 Arterial Blood Carboxyhemoglobin 1.3 Arterial Blood Methemoglobin 0.7 Blood Gas Hemoglobin 13.5 Blood Gas Inspired Oxygen 21 Urine Color YELLOW Urine Turbidity CLEAR Urine pH 5.5 Urine Specific [place] 1.025 Urine Protein 100 Urine Glucose (UA) 1000 Urine Ketones 80 Urine Occult Blood LARGE Urine Nitrite NEG Urine Bilirubin NEG Urine Urobilinogen LESS THAN 2.0 Urine Leukocyte Esterase NEG Urine RBC 4 Urine WBC 1 Urine Squamous Epithelial Cells 1 Urine Mucus FEW Microscopic Urinalysis Comment CULT NOT INDICATED Nasal Screen MRSA (PCR) MRSA NOT DETECTED Test 02/13/18 03:50 02/13/18 04:35 White Blood Count 25.1 Red Blood Count 4.66 Hemoglobin 12.5 Hematocrit 37.8 Mean Corpuscular Volume 81.2 Mean Corpuscular Hemoglobin 26.9 Mean Corpuscular Hemoglobin Concent 33.1 Red Cell Distribution Width 17.1 Platelet Count 156 Mean Platelet Volume 9.1 Blood Urea Nitrogen 16 Creatinine 1.26 Random Glucose 269 Total Protein 6.9 Albumin 3.0 Calcium Level 8.6 Alkaline Phosphatase 54 Aspartate Amino Transf (AST/SGOT) 142 Alanine Aminotransferase (ALT/SGPT) 54 Total Bilirubin 1.2 Sodium Level 136 Potassium Level 3.2 Chloride Level 100 Carbon Dioxide Level 22.7 Anion Gap 13 Estimat Glomerular Filtration Rate 58 Total Creatine Kinase 6788 Creatine Kinase MB 7.3 Creatine Kinase MB % 0.1 Troponin I 1.23 Lactic Acid Level 2.2 Date/Time Source Procedure Growth Status 02/12/18 21:55 Blood Peripheral Aerobic Blood Culture Pending Received 02/12/18 21:55 Blood Peripheral Anaerobic Blood Culture Pending Received Result Diagram: 02/13/18 0350 02/13/18 0350 Imaging Last 72 hours Impressions Chest X-Ray 02/12/186 Signed Impressions: CONCLUSION: 1. New mild focal infiltrate in the left lung base. 2. No evidence of free air. Head CT 02/12/18 0000 Signed Impressions: CONCLUSION: Chronic small vessel ischemic and atrophic changes. Cervical Spine CT 02/12/18 Signed Impressions: CONCLUSION: Unremarkable study except for slight degenerative spondylosis. CT Angiography 02/12/18 Signed Impressions: CONCLUSION: 1. Possible nodules within the thyroid gland mainly on the right side. 2. Slight fatty liver. 3. No definite pulmonary embolus. Abdomen/Pelvis CT 02/12/18 Signed Impressions: CONCLUSION: 1. Slight fatty liver. 2. Probable left adrenal adenoma. Assessment and Plan Assessment and Plan Right foot wound, stable, not infected XR and MRI pending Do not feel foot is source of infection at this time. No treatment indicated, Thank you for consultation Podiatry signing off Randy Mcgee DPM February 13, 2018 09:35
[2018-02-13] MEDS: HYDROmorphone HCL PF 0.5 MG/0.5 ML SYRINGE IV PUSH PRN (09:52)
[2018-02-13] MEDS: POTASSIUM CHLOR 20 MEQ PREMIX 100 ML IV PRN ×4 (09:58→17:08)
[2018-02-13] MEDS: LABETALOL HCL 100 MG/20 ML VIAL IV PUSH PRN ×2 (10:59→17:49)
[2018-02-13] MEDS: ACETAMINOPHEN 325 MG TAB PO PRN (10:59)
[2018-02-13] MEDS: guaiFENesin E.R. 600 MG TAB PO SCH ×2 (10:59→21:00)
[2018-02-13] MEDS ORDERED: BENZOCAINE-MENTHOL (SUGAR FREE) 15 MG-3.6 MG LOZENGE BUCCAL PRN (11:00)
[2018-02-13] MEDS: RESP: ALBUTEROL 2.5 MG/IPRATROPIUM 0.5 MG NEB (PRN) INH (11:38)
[2018-02-13] MEDS ORDERED: diphenhydrAMINE HCL 50 MG/ML VIAL IV PUSH ONE (12:00)
--- NOTE | 2018-02-13 12:05 | RADRPT ---
EXAM DATE: 02/13/2018 12:00 PM EDT AGE/SEX: 62 years / Male INDICATIONS: Respiratory failure. CLINICAL DATA: This is the patient's subsequent encounter. Patient reports that signs and symptoms h ave been present for 3 days and indicates a pain score of 0/10. MEDICAL/SURGICAL HISTORY: Congestive heart failure. Hypercholesterolemia. Carcinoma, colon. Hypertension. Ulcer. Arthritis. Diabetic. GERD. Colon resection. Bilateral feet & ankle ORIF. COMPARISON: No prior exams available for comparison. FINDINGS: Minimal basilar dependent atelectasis. Heart size upper limits normal. No effusion. No pneumothorax. No acute bony abnormalities identified. CONCLUSION: Minimal basilar dependent atelectasis. No effusion or pneumothorax. Electronically signed by: Clinton Wilkinson MD 02/13/2018 12:03 PM EDT
[2018-02-13] MEDS: INSULIN ASPART SUPPLEMENTAL SCALE SQ SCH ×3 (12:15→23:59)
[2018-02-13] MEDS ORDERED: DEXTROSE 50% IN WATER 50 ML SYRINGE IV PUSH PRN (12:15)
[2018-02-13] MEDS ORDERED: GLUCAGON 1 MG/ML VIAL OTHER PRN (12:15)
[2018-02-13] MEDS ORDERED: LORazepam 2 MG/ML VIAL ONE (12:47)
--- NOTE | 2018-02-13 12:50 | RADRPT ---
EXAM DATE: 02/13/2018 12:38 PM EDT AGE/SEX: 62 years / Male INDICATIONS: Distention CLINICAL DATA: This is the patient's initial encounter. Patient reports that signs and symptoms have been present for 2 days and indicates a pain score of Nonresponsive. MEDICAL/SURGICAL HISTORY: Gastroesophageal reflux disease. Congestive heart failure. Hyperten sabrina. ulcer, arthritis,diabetic colon cancer Cholecystectomy. colon resection, bilat foot and ankle orif COMPARISON: [facility] [place], CT ABDOMEN & PELVIS W CONTRAST, 02/12/2018. . FINDINGS: Stomach is prominently distended. No definite dilated loops of bowel although evaluation is limited by patient's body habitus. Air is seen in the colon. No gross free air. No abnormal calcific ations. Osseous structures are intact. CONCLUSION: 1. Prominent gaseous distention of the stomach. Patient may benefit from gastric decompression. 2. No significant dilatation of the bowel at this time. Electronically signed by: Garry Blanchard MD 02/13/2018 12:49 PM EDT
[2018-02-13 13:15] LABS: TROPONIN I 0.76 NG/ML (0.02-0.05)
[2018-02-13] MEDS ORDERED: LORazepam 2 MG/ML VIAL IV PUSH ONE ×2 (13:15)
--- NOTE | 2018-02-13 13:44 | PD.ID.CON ---
History of Present Illness Service ID Consult Requested By Dr Zuniga Reason for Consult sepsis Primary Care Physician Non-Staff Diagnoses: History of Present Illness Pt is in moderate resp distress, diaphoretic and unable to provide history Histpry from the chart and from other providers his is a 62yM with history of prior stroke, DM, CAD who presents after his brother found him after he fell. He states he was on the floor for > 18 hours. In admitting history a week of fatigue, fever, chills, generalized abdominal pain which is mild. Labs showed CK 7000, wbc 17k, Cr 1.3, trop 0.8. CT chest/abd/pelvis unremarkable. CT head and c-spine negative for trauma. Pt is febrile with T max of 103 Lactic acidosis of 4.4 Elevated troponine + blood ketones Today blood clx positive 12/18 for GPC in pairs, clusteres Review of Systems ROS Limitations: Clinical Condition (in distress) Past Family Social History Allergies: Coded Allergies: No Known Allergies (Unverified , 10/21/17) Past Medical History Diabetes Hyperlipidemia Chronic pain syndrome bilateral lower extremity ulcers BPH Hypertension Colon cancer s/p partial colectomy prior NSTEMI severe 2-vessel CAD managed medically old RBBB prior GI bleed anemia secondary to GI bleeding Arthritis CHF, unknown type GERD Past Surgical History partial colectomy skin grafts to right ankle left ankle surgery CABG Active Ordered Medications Medications where reviewed in EMR Antibiotics Include: adda grewal Family History reviewed and found to be noncontributory to his acute illness Social History No Tobacco. No ETOH. No Illicit Drugs. Physical Exam Vital Signs Vital Signs Date Time Temp Pulse Resp B/P (MAP) Pulse Ox O2 Delivery O2 Flow Rate FiO2 02/13/18 10:22 37 02/13/18 08:08 98 Nasal Cannula 2.00 02/13/18 07:00 101.3 103 34 158/83 (108) 98 02/13/18 07:00 103 02/13/18 06:00 102 02/13/18 04:00 100.9 106 20 114/62 (79) 99 02/13/18 04:00 106 02/13/18 03:17 99 Nasal Cannula 2.00 02/13/18 02:12 98 Nasal Cannula 3.00 02/13/18 02:00 110 02/13/18 01:13 99.4 114 20 121/70 (87) 99 02/13/18 01:09 02/12/18 23:31 102.9 127 24 116/56 (76) 99 Nasal Cannula 3.00 02/12/18 23:22 98 Nasal Cannula 3.00 02/12/18 23:21 100 50 02/12/18 21:19 103.7 130 34 139/83 (101) 94 Physical Exam CONSTITUTIONAL/GENERAL: This is a morbidly obese patient, in apparent distress. TUBES/LINES/DRAINS: SKIN: No jaundice, rashes, or lesions. Skin temperature appropriate. Very diaphoretic. HEAD: Atraumatic. Normocephalic. EYES: Pupils equal and round and reactive. Extraocular motions intact. No scleral icterus. No injection or drainage. Fundi not examined. ENT: Hearing grossly normal. Nose without bleeding or purulent drainage. Throat without visible erythema, exudates, masses, or lesions. NECK: Trachea midline. Supple, nontender. No palpable thyroid enlargement or nodularity. CARDIOVASCULAR: Regular rate and rhythm without murmurs, gallops, or rubs. No JVD. Peripheral pulses symmetric. RESPIRATORY/CHEST: Symmetric, unlabored respirations. Clear to auscultation. Breath sounds equal bilaterally. No wheezes, rales, or rhonchi. GASTROINTESTINAL: Abdomen soft, non-tender, markedly distended, tympanic to percussion. No hepato-splenomegaly, or palpable masses. No guarding. Bowel sounds present. GENITOURINARY: Without palpable bladder distension. Charlton catheter in place with clear yellow urine MUSCULOSKELETAL: Extremities without clubbing, cyanosis, or edema. No joint tenderness or effusion noted. No calf tenderness. No mottling or clubbing. chronic appearing b/l feet skin discoloration some abrasions and superficial ulecers noted on R foot w/o purulence or erythema LYMPHATICS: No palpable cervical or supraclavicular adenopathy. NEUROLOGICAL: Awake and alert. Motor and sensory grossly within normal limits. Follows commands. Clear speech Moves all extremities. PSYCHIATRIC: No obvious anxiety/depression. no apparent hallucinations or other psychotic thought process. Laboratory Laboratory Tests Test 02/12/18 21:45 02/12/18 22:13 02/13/18 00:50 02/13/18 01:20 White Blood Count 17.9 Red Blood Count 5.29 Hemoglobin 14.3 Hematocrit 42.9 Mean Corpuscular Volume 81.0 Mean Corpuscular Hemoglobin 27.1 Mean Corpuscular Hemoglobin Concent 33.4 Red Cell Distribution Width 17.0 Platelet Count 179 Mean Platelet Volume 9.1 Neutrophils (%) (Auto) 89.5 Lymphocytes (%) (Auto) 6.1 Monocytes (%) (Auto) 4.2 Eosinophils (%) (Auto) 0.0 Basophils (%) (Auto) 0.2 Neutrophils # (Auto) 16.0 Lymphocytes # (Auto) 1.1 Monocytes # (Auto) 0.7 Eosinophils # (Auto) 0.0 Basophils # (Auto) 0.0 CBC Comment DIFF FINAL Differential Comment Prothrombin Time 12.1 Prothromb Time International Ratio 1.2 Activated Partial Thromboplast Time 28.7 Blood Urea Nitrogen 13 Creatinine 1.33 Random Glucose 297 Total Protein 8.5 Albumin 3.7 Calcium Level 9.2 Magnesium Level 1.9 Alkaline Phosphatase 71 Aspartate Amino Transf (AST/SGOT) 133 Alanine Aminotransferase (ALT/SGPT) 53 Total Bilirubin 1.4 Sodium Level 131 Potassium Level 3.6 Chloride Level 95 Carbon Dioxide Level 20.9 Anion Gap 15 Estimat Glomerular Filtration Rate 55 Lactic Acid Level 4.6 Ammonia LESS THAN 10 Total Creatine Kinase 7695 Creatine Kinase MB 9.1 Creatine Kinase MB % 0.1 Troponin I 0.86 B-Type Natriuretic Peptide 753 Lipase 50 Ethyl Alcohol Level LESS THAN 3 B-Hydroxybutyrate 1.03 Blood Gas Puncture Site LT RADIAL Blood Gas Patient Temperature 98.6 Blood Gas HCO3 21 Blood Gas Base Excess -2.5 Blood Gas Oxygen Saturation 90 Arterial Blood pH 7.48 Arterial Blood Partial Pressure CO2 28 Arterial Blood Partial Pressure O2 59 Arterial Blood Oxygen Content 17.0 Arterial Blood Carboxyhemoglobin 1.3 Arterial Blood Methemoglobin 0.7 Blood Gas Hemoglobin 13.5 Blood Gas Inspired Oxygen 21 Urine Color YELLOW Urine Turbidity CLEAR Urine pH 5.5 Urine Specific [place] 1.025 Urine Protein 100 Urine Glucose (UA) 1000 Urine Ketones 80 Urine Occult Blood LARGE Urine Nitrite NEG Urine Bilirubin NEG Urine Urobilinogen LESS THAN 2.0 Urine Leukocyte Esterase NEG Urine RBC 4 Urine WBC 1 Urine Squamous Epithelial Cells 1 Urine Mucus FEW Microscopic Urinalysis Comment CULT NOT INDICATED Nasal Screen MRSA (PCR) MRSA NOT DETECTED Test 02/13/18 03:50 02/13/18 04:35 02/13/18 11:15 02/13/18 11:40 White Blood Count 25.1 Red Blood Count 4.66 Hemoglobin 12.5 Hematocrit 37.8 Mean Corpuscular Volume 81.2 Mean Corpuscular Hemoglobin 26.9 Mean Corpuscular Hemoglobin Concent 33.1 Red Cell Distribution Width 17.1 Platelet Count 156 Mean Platelet Volume 9.1 Blood Urea Nitrogen 16 Creatinine 1.26 Random Glucose 269 Total Protein 6.9 Albumin 3.0 Calcium Level 8.6 Alkaline Phosphatase 54 Aspartate Amino Transf (AST/SGOT) 142 Alanine Aminotransferase (ALT/SGPT) 54 Total Bilirubin 1.2 Sodium Level 136 Potassium Level 3.2 Chloride Level 100 Carbon Dioxide Level 22.7 Anion Gap 13 Estimat Glomerular Filtration Rate 58 Total Creatine Kinase 6788 Creatine Kinase MB 7.3 Creatine Kinase MB % 0.1 Troponin I 1.23 Lactic Acid Level 2.2 Blood Gas Puncture Site LT RADIAL Blood Gas Patient Temperature 98.6 Blood Gas HCO3 23 Blood Gas Base Excess -2.8 Blood Gas Oxygen Saturation 94 Arterial Blood pH 7.28 Arterial Blood Partial Pressure CO2 50 Arterial Blood Partial Pressure O2 94 Arterial Blood Oxygen Content 17.6 Arterial Blood Carboxyhemoglobin 0.8 Arterial Blood Methemoglobin 1.3 Blood Gas Hemoglobin 13.3 Oxygen Delivery Device Venti Mask Blood Gas Inspired Oxygen 50 Date/Time Source Procedure Growth Status 02/12/18 21:55 Blood Peripheral Aerobic Blood Culture - Preliminary Gram Positive Cocci Resulted 02/12/18 21:55 Anaerobic Blood Culture - Preliminary Gram Positive Cocci Resulted Result Diagram: 02/13/18 0350 02/13/18 0350 Imaging KUB was STAT ordered and image was reviewed by me Last Impressions Chest X-Ray 02/13/18 Signed Impressions: CONCLUSION: Minimal basilar dependent atelectasis. No effusion or pneumothorax. Abdomen X-Ray 02/13/18 Signed Impressions: CONCLUSION: 1. Prominent gaseous distention of the stomach. Patient may benefit from gastr ic decompression. 2. No significant dilatation of the bowel at this time. Head CT 02/12/18 Signed Impressions: CONCLUSION: Chronic small vessel ischemic and atrophic changes. Cervical Spine CT 02/12/18 Signed Impressions: CONCLUSION: Unremarkable study except for slight degenerative spondylosis. CT Angiography 02/12/18 Signed Impressions: CONCLUSION: 1. Possible nodules within the thyroid gland mainly on the right side. 2. Slight fatty liver. 3. No definite pulmonary embolus. Abdomen/Pelvis CT 02/12/18 0000 Signed Impressions: CONCLUSION: 1. Slight fatty liver. 2. Probable left adrenal adenoma. 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
[2018-02-13 14:07] LABS: ALKALINE PHOSPHATASE 61 U/L (45-117); ALT (GPT) 81 U/L (12-78); AST (GOT) 171 U/L (15-37); BICARBONATE 23.9 MEQ/L (21.0-32.0); BLOOD UREA NITROGEN 20 MG/DL (7-18); CALCIUM 8.5 MG/DL (8.5-10.1); CHLORIDE 96 MEQ/L (98-107); CREATININE 1.48 MG/DL (0.60-1.30); GLOMERULAR FILTRATION RATE 48 ML/MIN (>89); GLUCOSE,RANDOM 333 MG/DL (74-106); SODIUM (NA) 131 MEQ/L (136-145); TOTAL BILIRUBIN ADULT 1.2 MG/DL (0.2-1.0); TOTAL PROTEIN 7.3 GM/DL (6.4-8.2)
--- NOTE | 2018-02-13 14:52 | EKG ---
Date Performed: 02/12/2018 Time Performed: 21:32:38 PTAGE: 62 years EKG: SINUS TACHYCARDIA MARKED RIGHT AXIS DEVIATION RIGHT BUNDLE BRANCH BLOCK Left anterior fasci cular block ABNORMAL ECG PREVIOUS TRACING : 10/22/17 DOCTOR: Tee Otero Interpretating Date/Time 02/13/2018 14:47:37
[2018-02-13] MEDS ORDERED: FUROSEMIDE 40 MG/4 ML VIAL IV PUSH ONE (15:30)
--- NOTE | 2018-02-13 16:34 | ECHRPT ---
Indication: ASSESS LV FUNC, ? VEGETATIONS CONCLUSIONS Normal left ventricular size and wall thickness. The left ventricular systolic function is normal wi th an estimated ejection fraction in the range of 60-65%. Left ventricular diastolic function parameters a re normal. BP: 158 / 83 HR: Rhythm: Sinus MEASUREMENTS (Male / Female) Normal Values Technical Quality:Very technically difficult study DOPPLER AV Peak Velocity 105.0 cm/s AV Peak Gradient 4.4 mmHg AV Mean Gradient 3.0 mmHg AV Velocity Time Integral 14.5 cm LVOT Peak Velocity 89.5 cm/s LVOT Peak Gradient 3.2 mmHg LVOT Velocity Time Integral 14.1 cm Mitral E Point Velocity 95.3 cm/s Mitral A Point Velocity 114.0 cm/s Mitral E to A Ratio 0.8 LV E' Lateral Velocity 10.4 cm/s Mitral E to LV E' Lateral Ratio 9.2 LV E' Septal Velocity 6.6 cm/s Mitral E to LV E' Septal Ratio 14.4 FINDINGS LEFT VENTRICLE Normal left ventricular size and wall thickness. The left ventricular systolic function is normal wi th an estimated ejection fraction in the range of 60-65%. Left ventricular diastolic function parameters a re normal. RIGHT VENTRICLE Normal right ventricular size and systolic function. LEFT ATRIUM The left atrial size is normal. RIGHT ATRIUM The right atrial size is normal. ATRIAL SEPTUM Normal atrial septal thickness without atrial level shunting by limited color doppler interrogation. AORTA The aortic root and proximal ascending aorta are normal in size on limited imaging. MITRAL VALVE Structurally normal mitral valve. No mitral valve stenosis or regurgitation. AORTIC VALVE Trileaflet aortic valve. No aortic valve stenosis or regurgitation. TRICUSPID VALVE Structurally normal tricuspid valve. No tricuspid valve stenosis or regurgitation. PULMONARY VALVE The pulmonary valve is not well visualized. VESSELS The inferior vena cava is normal in size. PERICARDIUM No pericardial effusion. Eber Francisco MD, FACC (Electronically Signed) Final Date:13 Feb 2018 16:33
[2018-02-13 17:01] LABS: TROPONIN I 0.92 NG/ML (0.02-0.05)
[2018-02-13] MEDS ORDERED: SUCCINYLCHOLINE CHLORIDE 200 MG/10 ML VIAL IV ONE (20:00)
[2018-02-13] MEDS: PROPOFOL 1000 MG/100 ML INJ 100 ML IV PRN ×2 (20:25→23:49)
[2018-02-13] MEDS: fentaNYL DRIP 250 ML IV PRN (21:26)
[2018-02-13] MEDS: SODIUM BICARBONATE 8.4% INJ 150 MEQ in DEXTROSE 5% IN WATE 1000ML INJ 1,000 ML IV SCH ×2 (22:24)
--- NOTE | 2018-02-13 22:24 | RADRPT ---
EXAM DATE: 02/13/2018 10:20 PM EDT AGE/SEX: 62 years / Male INDICATIONS: Right foot pain. CLINICAL DATA: This is the patient's initial encounter. Patient reports that signs and symptoms have been present for 1 day and indicates a pain score of Nonresponsive. MEDICAL/SURGICAL HISTORY: . ORIF calcaneous, right ankle fusion. Non-responsive. COMPARISON: No prior [place] exams available for comparison. FINDINGS: 2 views of the right foot demonstrate a retrograde intramedullary keisha extending through the calcaneus , talus, and distal tibia. 2 cortical screws also traverse the calcaneus and subtalar joint. There ar e no findings to indicate hardware failure or loosening. There appears to be osseous fusion between t he talus and distal tibia and likely calcaneus as well. Hypertrophic osteophytes are present at the t alonavicular joint. There is a transverse lucency extending through the mid fifth metatarsal with adj acent periosteal reaction. Lisfranc joint appears intact. There is soft tissue swelling on the dorsal aspect of the foot. CONCLUSION: 1. There is a transverse fracture through the mid fifth metatarsal. Adjacent periosteal reaction is present suggesting that it is subacute or chronic. 2. There has been prior arthrodesis of the subtalar joint and tibiotalar joints with osseous fusion. Hypertrophic osteophytes are present at the talonavicular joint. Electronically signed by: Gilmar Knox MD 02/13/2018 10:23 PM EDT
--- NOTE | 2018-02-13 23:25 | RADRPT ---
EXAM DATE: 02/13/2018 11:20 PM EDT AGE/SEX: 62 years / Male INDICATIONS: Status post intubation. CLINICAL DATA: This is the patient's subsequent encounter. Patient reports that signs and symptoms h ave been present for 1 day and indicates a pain score of Nonresponsive. MEDICAL/SURGICAL HISTORY: . Congestive heart failure. Hypercholesterolemia. Carcinoma, colon. H ypertension. Ulcer. Arthritis. Diabetic. GERD. . Colon resection. Bilateral feet & ankle ORIF. COMPARISON: C, CHEST SINGLE AP, 02/13/2018. . FINDINGS: Heart size enlarged. Slight increase in basilar airspace disease since exam from earlier today. No ef fusion or pneumothorax. CONCLUSION: Endotracheal tube in good position. Electronically signed by: Clinton Wilkinson MD 02/13/2018 11:24 PM EDT
[2018-02-13 23:57] LABS: TROPONIN I 0.88 NG/ML (0.02-0.05)
[2018-02-14] VITALS (17 sets, daily range): BP systolic 95–135; BP diastolic 58–74; PULSE 75–106; RESP 13–18; TEMP 97–100.3; O2SAT 96–100
--- NOTE | 2018-02-14 00:11 | RADRPT ---
EXAM DATE: 02/13/2018 10:17 PM EDT AGE/SEX: 62 years / Male INDICATIONS: Left foot pain. CLINICAL DATA: This is the patient's initial encounter. Patient reports that signs and symptoms have been present for 1 day and indicates a pain score of Nonresponsive. MEDICAL/SURGICAL HISTORY: Non-responsive. Non-responsive. COMPARISON: No prior exams available for comparison. FINDINGS: No acute fracture. Remote healed fracture fifth metatarsal. Bones are osteopenic. 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 CONCLUSION: No acute findings. Remote fifth metatarsal fracture. Electronically signed by: Clinton Wilkinson MD 02/14/2018 12:10 AM EDT
[2018-02-14] MEDS: RESP: ALBUTEROL 2.5 MG/IPRATROPIUM 0.5 MG NEB (SCH) INH ×6 (00:32→19:43)
[2018-02-14] MEDS: PROPOFOL 1000 MG/100 ML INJ 100 ML IV PRN ×5 (02:49→23:15)
[2018-02-14] MEDS: CHLORHEXIDINE GLUCONATE 2 % 1 PACK (2 CLOTHS) TOP SCH (04:00)
[2018-02-14 04:28] LABS: HEMATOCRIT 36.8 % (39.0-51.0); HEMOGLOBIN 12.3 GM/DL (13.0-17.0); MEAN CELL VOLUME 81.4 FL (80.0-100.0); MEAN CORPUSCULAR HEMOGLOBIN 27.2 PG (27.0-34.0); MEAN CORPUSCULAR HGB CONC 33.4 % (32.0-36.0); MEAN PLATELET VOLUME 9.1 FL (7.0-11.0); PLATELET COUNT 140 TH/MM3 (150-450); RED BLOOD COUNT 4.52 MIL/MM3 (4.50-5.90); RED CELL DISTRIBUTION WIDTH 17.2 % (11.6-17.2); WHITE BLOOD COUNT 16.6 TH/MM3 (4.0-11.0)
[2018-02-14] MEDS: HEPARIN SODIUM - SQ 10,000 UNITS/ML VIAL SQ SCH ×3 (04:59→20:34)
[2018-02-14] MEDS: INSULIN ASPART SUPPLEMENTAL SCALE SQ SCH ×4 (04:59→23:13)
[2018-02-14] MEDS: VANCOMYCIN INJ 2,000 MG in SODIUM CHLORID 0.9% 500 ML INJ 500 ML IV SCH (05:00)
[2018-02-14 05:20] LABS: ALBUMIN 2.6 GM/DL (3.4-5.0); ALKALINE PHOSPHATASE 56 U/L (45-117); ALT (GPT) 84 U/L (12-78); AST (GOT) 115 U/L (15-37); BICARBONATE 25.8 MEQ/L (21.0-32.0); BLOOD UREA NITROGEN 28 MG/DL (7-18); CALCIUM 8.1 MG/DL (8.5-10.1); CHLORIDE 99 MEQ/L (98-107); CREATININE 1.54 MG/DL (0.60-1.30); GLOMERULAR FILTRATION RATE 46 ML/MIN (>89); GLUCOSE,RANDOM 233 MG/DL (74-106); SODIUM (NA) 135 MEQ/L (136-145); TOTAL BILIRUBIN ADULT 0.8 MG/DL (0.2-1.0); TOTAL PROTEIN 6.9 GM/DL (6.4-8.2)
--- NOTE | 2018-02-14 05:36 | PD.PROCEDR ---
Procedure Note Procedure Endotracheal Intubation A time-out was completed verifying correct patient, procedure, site, positioning , and special equipment if applicable. The patient was placed in a flat position. Sedation was obtained using Etomidate 20mg. The patient was easily ventilated using an ambu bag. The [employer]/ MAC 4 BLADE was used and inserted into the oropharynx at which time there was a Grade 1 view of the vocal cords. A 8-welsh endotracheal tube was inserted and visualized going through the vocal cords. The stylette was removed. Colorimetric change was visualized on the CO2 meter. Breath sounds were heard in both lung rhodes equally. The endotracheal tube was placed at 23 cm, measured at the teeth. A chest x-ray was ordered to assess for pneumothorax and verify endotrachealtube placement. Estimated Blood Loss: 0 The patient tolerated the procedure well and there were no complications. Rogelio Umana MD Feb 14, 2018 05:36
[2018-02-14] MEDS: fentaNYL DRIP 250 ML IV PRN ×2 (07:01→21:47)
[2018-02-14] MEDS: guaiFENesin E.R. 600 MG TAB PO SCH ×2 (07:52→20:34)
[2018-02-14] MEDS: PANTOPRAZOLE SODIUM 40 MG VIAL IV PUSH SCH (07:52)
[2018-02-14] MEDS: CHLORHEXIDINE 0.12% (ORAL KIT) 15 ML CUP MT SCH ×2 (07:52→20:33)
--- NOTE | 2018-02-14 09:28 | HHI.CCPN ---
Subjective Remarks/Hospital Course Hospital Course: This is a 62yM with history of prior stroke, DM, CAD who presents after his brother found him after he fell. He states he was on the floor for > 18 hours. He endorses a week of fatigue, fever, chills. denies any other symptoms. denies chest pain, shortness of breath, nausea, vomiting, constipation, diarrhea. does endorse generalized abdominal pain which is mild. in the ER he was tachycardic and very diaphoretic. he has laboratory evidence of CK 7000, wbc 17k, Cr 1.3, trop 0.8. CT chest/abd/pelvis unremarkable. CT head and c-spine negative for trauma. febrile to 103 in the ER. given 2L NS ivf with improvement in his HR. remainder of ROS negative. 02/13: somewhat improved, feeling slightly better. remains febrile. cultures still pending. repeat lactate pending. HR improving. 02/14: Patient had episodes of temperatures of 103 with diaphoresis tachypnea yesterday. Blood cultures growing staph aureus 4 out of 4. Evaluated by ANGI Otero yesterday. Respiratory status declined overnight and patient was intubated and placed on mechanical ventilation. Currently remains sedated, orally intubated on mechanical ventilation. Objective Vital Signs Date Time Temp Pulse Resp B/P (MAP) Pulse Ox O2 Delivery O2 Flow Rate FiO2 02/14/18 07:40 96 35 02/14/18 06:00 75 02/14/18 04:00 97.0 18 95/58 (70) 02/13/18 19:55 Venturi Mask 6.00 Intake and Output 02/14/18 02/14/18 02/15/18 08:00 16:00 00:00 Intake Total 893 ml Output Total 250 ml Balance 643 ml Result Diagram: 02/14/18 0420 02/14/18 0420 Other Results Laboratory Tests Test 02/13/18 11:40 02/14/18 03:48 02/14/18 05:58 Blood Gas Puncture Site LT RADIAL RT BRACHIAL RT BRACHIAL Blood Gas Patient Temperature 98.6 98.6 98.6 Blood Gas HCO3 23 mmol/L (22-26) 26 mmol/L (22-26) 26 mmol/L (22-26) Blood Gas Base Excess -2.8 mmol/L (-2-2) -0.3 mmol/L (-2-2) 0.3 mmol/L (-2-2) Blood Gas Oxygen Saturation 94 % (90-100) 96 % (90-100) 97 % (90-100) Arterial Blood pH 7.28 (7.380-7.420) 7.25 (7.380-7.420) 7.32 (7.380-7.420) Arterial Blood Partial Pressure CO2 50 mmHg (38-42) 62 mmHg (38-42) 52 mmHg (38-42) Arterial Blood Partial Pressure O2 94 mmHg (61-120) 134 mmHg (61-120) 149 mmHg (61-120) Arterial Blood Oxygen Content 17.6 Vol % (12.0-20.0) 16.8 Vol % (12.0-20.0) 16.2 Vol % (12.0-20.0) Arterial Blood Carboxyhemoglobin 0.8 % (0-4) 0.9 % (0-4) 0.9 % (0-4) Arterial Blood Methemoglobin 1.3 % (0-2) 1.5 % (0-2) 1.3 % (0-2) Blood Gas Hemoglobin 13.3 G/DL (12.0-16.0) 12.3 G/DL (12.0-16.0) 11.7 G/DL (12.0-16.0) Oxygen Delivery Device Venti Mask VENTILATOR VENTILATOR Blood Gas Inspired Oxygen 50 % 50 % 40 % Blood Gas Ventilator Setting PRVC/AC14/500/ PRVC/AC 14/500/ Imaging Last Impressions Chest X-Ray 02/12/182205 Signed Impressions: CONCLUSION: 1. New mild focal infiltrate in the left lung base. 2. No evidence of free air. Head CT 02/12/18 Signed Impressions: CONCLUSION: Chronic small vessel ischemic and atrophic changes. Cervical Spine CT 02/12/18 Signed Impressions: CONCLUSION: Unremarkable study except for slight degenerative spondylosis. CT Angiography 02/12/18 Signed Impressions: CONCLUSION: 1. Possible nodules within the thyroid gland mainly on the right side. 2. Slight fatty liver. 3. No definite pulmonary embolus. Abdomen/Pelvis CT 02/12/18 Signed Impressions: CONCLUSION: 1. Slight fatty liver. 2. Probable left adrenal adenoma. Objective Remarks HEENT/ Neuro: Sedated, orally intubated, Pallor present, no icterus, tongue/ mucosa MOIST Neck: No JVD Chest/Pulm: on mech vent, good air entry bilaterally, no wheezing or crackles CVS: S1-S2 regular, no murmur GI/abdomen: soft, nontender, bowel sounds sluggish Extremities: right ankle is swollen and edematous, erythematous. there is a small area approximately 1cm x 2cm ulceration. this appears to be well healing with good granulation tissue. there is no area of purulence. left ankle also appears erythematous and edematous with mild tenderness to palpation. no purulent drainage. Urinary Catheter: Yes Assessment to: Continue A/P Assessment and Plan Assessment: 62yM with severe rhabdomyolysis and severe sepsis with staph aureus bacteremia: likely foot cellulitis as a source. clearly infected with fever, leukocytosis, tachycardia, and end-organ dysfunction from his sepsis. continue abx and ivf. trend CK. Highly complex with multiple organ systems involved. Severe sepsis - source likely LE cellulitis - MRI bilateral feet - podiatry consult -ID consult Dr. Otero evaluated patient on 02/13. -Continue IV vancomycin. Zosyn stopped on 02/[address] Otero as blood cultures growing staph aureus. - blood cultures: Gram-positive cocci / BOTTLES - sputum culture - ivf Acute Severe Rhabdomyolysis - trend ck -Bicarb gtt @ 100 cc/hr - continue best - strict i/o's Acute kidney injury - secondary to severe sepsis and rhabdo - daily bmp - strict i/os - u/a Acute Type II NSTEMI, Elevated troponin, likely secondary to demand ischemia - trend troponin - given history of GI bleed and multiple organ dysfunction, in the setting of asymptomatic without overt chest pain, unlikely to be ACS and we will hold off on anticoagulation at this time. - EKG without ST elevation - CT pulmonary angiogram negative for PE. Possible ALI Acute respiratory failure on mechanical ventilation - ECHO WITH NORMAL lv/ rv FUNCTION - clinically appears intravascularly volume deplete - gentle mivf -Sedation with propofol/fentanyl -Continue mechanical ventilation, vent bundle, bronchodilators as needed. -Daily sedation vacation -Daily CPAP trials to decide extubation Hyperglycemia Diabetes Mellitus, type 2 - SSI med scale, q6h Lactic Acidosis - secondary to severe sepsis - trend lactates - ivf Elevated LFTs - secondary to severe sepsis - trend Elevated T bili - likely secondary to severe sepsis - trend Hyponatremia - may be secondary to total body volume overload and history of CHF. - trend on daily bmp advance diet as tolerated SCDs SQH protonix Flavio Zuniga MD Feb 14, 2018 09:28
[2018-02-14] MEDS: SODIUM BICARBONATE 8.4% INJ 150 MEQ in DEXTROSE 5% IN WATE 1000ML INJ 1,000 ML IV SCH ×4 (10:14→20:34)
[2018-02-14] MEDS: OXACILLIN INJ 2 GM in SODIUM CHLORIDE 0.9% INJ 100 ML IV SCH ×4 (10:48→20:34)
--- NOTE | 2018-02-14 15:14 | HHI.IDPN ---
Subjective Subjective Remarks pt is now intubated cont to have sustained MSSA bacteremia Antibiotics Oxacillin Allergies: Coded Allergies: No Known Allergies (Unverified , 10/21/17) Objective . Vital Signs Date Time Temp Pulse Resp B/P (MAP) Pulse Ox O2 Delivery O2 Flow Rate FiO2 02/14/18 14:36 96 35 02/14/18 14:00 100 02/14/18 12:00 35 02/14/18 12:00 98.8 87 18 99/61 (74) 98 02/14/18 12:00 87 02/14/18 10:00 87 02/14/18 08:00 98.6 83 18 101/63 (76) 98 02/14/18 08:00 83 02/14/18 08:00 35 02/14/18 07:40 96 35 02/14/18 07:00 97 Mechanical Ventilator 02/14/18 06:10 100 35 02/14/18 06:00 75 02/14/18 04:00 40 02/14/18 04:00 97.0 81 18 95/58 (70) 99 02/14/18 04:00 75 02/14/18 03:55 100 40 02/14/18 02:00 86 02/14/18 00:31 98 50 02/14/18 00:00 98.5 92 14 106/58 (74) 99 02/14/18 00:00 87 02/14/18 00:00 50 02/13/18 22:00 83 02/13/18 20:45 100 50 02/13/18 20:25 50 02/13/18 20:00 100 02/13/18 20:00 99.2 100 42 144/79 (100) 100 02/13/18 19:55 97 Venturi Mask 6.00 50 02/13/18 19:00 98 Venturi Mask 50 02/13/18 18:00 84 02/13/18 16:00 107 02/13/18 16:00 97.5 107 42 141/64 (89) 99 02/14/18 02/14/18 02/15/18 15:00 23:00 07:00 Intake Total 1951 ml Balance 1951 ml IV Total 1951 ml . Laboratory Tests Test 02/12/18 21:45 02/13/18 03:50 02/13/18 13:15 02/14/18 04:20 White Blood Count 17.9 TH/MM3 25.1 TH/MM3 16.6 TH/MM3 Red Blood Count 5.29 MIL/MM3 4.66 MIL/MM3 4.52 MIL/MM3 Hemoglobin 14.3 GM/DL 12.5 GM/DL 12.3 GM/DL Hematocrit 42.9 % 37.8 % 36.8 % Mean Corpuscular Volume 81.0 FL 81.2 FL 81.4 FL Mean Corpuscular Hemoglobin 27.1 PG 26.9 PG 27.2 PG Mean Corpuscular Hemoglobin Concent 33.4 % 33.1 % 33.4 % Red Cell Distribution Width 17.0 % 17.1 % 17.2 % Platelet Count 179 TH/MM3 156 TH/MM3 140 TH/MM3 Mean Platelet Volume 9.1 FL 9.1 FL 9.1 FL Neutrophils (%) (Auto) 89.5 % Lymphocytes (%) (Auto) 6.1 % Monocytes (%) (Auto) 4.2 % Eosinophils (%) (Auto) 0.0 % Basophils (%) (Auto) 0.2 % Neutrophils # (Auto) 16.0 TH/MM3 Lymphocytes # (Auto) 1.1 TH/MM3 Monocytes # (Auto) 0.7 TH/MM3 Eosinophils # (Auto) 0.0 TH/MM3 Basophils # (Auto) 0.0 TH/MM3 CBC Comment DIFF FINAL Differential Comment Erythrocyte Sedimentation Rate 56 mm/hr Laboratory Tests Test 02/12/18 21:45 02/13/18 03:50 02/13/18 04:35 02/13/18 11:15 Blood Urea Nitrogen 13 MG/DL 16 MG/DL Creatinine 1.33 MG/DL 1.26 MG/DL Random Glucose 297 MG/DL 269 MG/DL Total Protein 8.5 GM/DL 6.9 GM/DL Albumin 3.7 GM/DL 3.0 GM/DL Calcium Level 9.2 MG/DL 8.6 MG/DL Magnesium Level 1.9 MG/DL Alkaline Phosphatase 71 U/L 54 U/L Aspartate Amino Transf (AST/SGOT) 133 U/L 142 U/L Alanine Aminotransferase (ALT/SGPT) 53 U/L 54 U/L Total Bilirubin 1.4 MG/DL 1.2 MG/DL Sodium Level 131 MEQ/L 136 MEQ/L Potassium Level 3.6 MEQ/L 3.2 MEQ/L Chloride Level 95 MEQ/L 100 MEQ/L Carbon Dioxide Level 20.9 MEQ/L 22.7 MEQ/L Anion Gap 15 MEQ/L 13 MEQ/L Estimat Glomerular Filtration Rate 55 ML/MIN 58 ML/MIN Lactic Acid Level 4.6 mmol/L 2.2 mmol/L Ammonia LESS THAN 10 MCMOL/L Total Creatine Kinase 7695 U/L 6788 U/L 7499 U/L Creatine Kinase MB 9.1 NG/ML 7.3 NG/ML 9.5 NG/ML Creatine Kinase MB % 0.1 % 0.1 % 0.1 % Troponin I 0.86 NG/ML 1.23 NG/ML 0.76 NG/ML B-Type Natriuretic Peptide 753 PG/ML Lipase 50 U/L Test 02/13/18 13:15 02/13/18 16:04 02/13/18 22:11 02/14/18 04:20 Blood Urea Nitrogen 20 MG/DL 28 MG/DL Creatinine 1.48 MG/DL 1.54 MG/DL Random Glucose 333 MG/DL 233 MG/DL Total Protein 7.3 GM/DL 6.9 GM/DL Albumin 3.0 GM/DL 2.6 GM/DL Calcium Level 8.5 MG/DL 8.1 MG/DL Alkaline Phosphatase 61 U/L 56 U/L Aspartate Amino Transf (AST/SGOT) 171 U/L 115 U/L Alanine Aminotransferase (ALT/SGPT) 81 U/L 84 U/L Total Bilirubin 1.2 MG/DL 0.8 MG/DL Sodium Level 131 MEQ/L 135 MEQ/L Potassium Level 4.9 MEQ/L 5.6 MEQ/L 4.7 MEQ/L Chloride Level 96 MEQ/L 99 MEQ/L Carbon Dioxide Level 23.9 MEQ/L 25.8 MEQ/L Anion Gap 11 MEQ/L 10 MEQ/L Estimat Glomerular Filtration Rate 48 ML/MIN 46 ML/MIN Lactic Acid Level 2.8 mmol/L C-Reactive Protein 16.00 MG/DL Total Creatine Kinase 6876 U/L 6114 U/L 3747 U/L Creatine Kinase MB 9.1 NG/ML 7.8 NG/ML 5.7 NG/ML Creatine Kinase MB % 0.1 % 0.1 % 0.2 % Troponin I 0.92 NG/ML 0.88 NG/ML Test 02/14/18 11:08 Total Creatine Kinase 2310 U/L Creatine Kinase MB 4.2 NG/ML Creatine Kinase MB % 0.2 % Microbiology Date/Time Source Procedure Growth Status 02/13/18 13:20 Blood Peripheral Aerobic Blood Culture - Preliminary Gram Positive Cocci Resulted 02/13/18 13:20 Blood Peripheral Anaerobic Blood Culture - Preliminary NO GROWTH IN 1 DAY Resulted 02/13/18 13:15 Blood Peripheral Aerobic Blood Culture - Preliminary Gram Positive Cocci Resulted 02/13/18 13:15 Blood Peripheral Anaerobic Blood Culture - Preliminary NO GROWTH IN 1 DAY Resulted 02/12/18 21:55 Blood Peripheral Aerobic Blood Culture - Preliminary Staphylococcus Aureus Resulted 02/12/18 21:55 Anaerobic Blood Culture - Preliminary Staphylococcus Aureus Resulted 02/12/18 21:45 Blood Peripheral Aerobic Blood Culture - Preliminary Staphylococcus Aureus Resulted 02/12/18 21:45 Anaerobic Blood Culture - Preliminary Staphylococcus Aureus Resulted Imaging Last Impressions Foot X-Ray 02/13/18 Signed Impressions: CONCLUSION: 1. There is a transverse fracture through the mid fifth metatarsal. Adjacent p eriosteal reaction is present suggesting that it is subacute or chronic. 2. There has been prior arthrodesis of the subtalar joint and tibiotalar joint s with osseous fusion. Hypertrophic osteophytes are present at the talonavicula r joint. Chest X-Ray 02/13/18 Signed Impressions: CONCLUSION: Endotracheal tube in good position. Abdomen X-Ray 02/13/18 Signed Impressions: CONCLUSION: 1. Prominent gaseous distention of the stomach. Patient may benefit from gastr ic decompression. 2. No significant dilatation of the bowel at this time. Head CT 02/12/18 Signed Impressions: CONCLUSION: Chronic small vessel ischemic and atrophic changes. Cervical Spine CT 02/12/18 Signed Impressions: CONCLUSION: Unremarkable study except for slight degenerative spondylosis. CT Angiography 02/12/18 Signed Impressions: CONCLUSION: 1. Possible nodules within the thyroid gland mainly on the right side. 2. Slight fatty liver. 3. No definite pulmonary embolus. Abdomen/Pelvis CT 02/12/18 Signed Impressions: CONCLUSION: 1. Slight fatty liver. 2. Probable left adrenal adenoma. Physical Exam CONSTITUTIONAL/GENERAL: This is a morbidly obese patient, intubated TUBES/LINES/DRAINS: SKIN: No jaundice, rashes, or lesions. Skin temperature appropriate. HEAD: Atraumatic. Normocephalic. EYES: Pupils equal and round and reactive. Extraocular motions intact. No scleral icterus. No injection or drainage. Fundi not examined. ENT: Hearing grossly normal. Nose without bleeding or purulent drainage. Throat without visible erythema, exudates, masses, or lesions. NECK: Trachea midline. Supple, nontender. No palpable thyroid enlargement or nodularity. CARDIOVASCULAR: Regular rate and rhythm without murmurs, gallops, or rubs. No JVD. Peripheral pulses symmetric. RESPIRATORY/CHEST: Symmetric, unlabored respirations. Clear to auscultation. Breath sounds equal bilaterally. No wheezes, rales, or rhonchi. GASTROINTESTINAL: Abdomen soft, non-tender, mildly distended. No hepato- splenomegaly, or palpable masses. No guarding. Bowel sounds present. GENITOURINARY: Without palpable bladder distension. Charlton catheter in place with clear yellow urine MUSCULOSKELETAL: Extremities without clubbing, cyanosis, or edema. No joint tenderness or effusion noted. No calf tenderness. No mottling or clubbing. chronic appearing b/l feet skin discoloration some abrasions and superficial ulecers noted on R foot w/o purulence or erythema + chronic edema present NEUROLOGICAL: sedated. 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
[2018-02-14] MEDS ORDERED: GADODIAMIDE PF 287 MG/ML 5 ML VIAL (for RAD MRI) IVCONTRAST ONE (18:40)
[2018-02-14] MEDS: ACETAMINOPHEN 325 MG TAB PO PRN (19:23)
--- NOTE | 2018-02-14 19:41 | RADRPT ---
EXAM DATE: 02/14/2018 7:14 PM EDT AGE/SEX: 62 years / Male INDICATIONS: . Cellulitis CLINICAL DATA: This is the patient's subsequent encounter. Patient reports that signs and symptoms h ave been present for 2 days and indicates a pain score of 5/10. MEDICAL/SURGICAL HISTORY: . Colon Ca, HTN, BPH, HLD, CHF, CVA, DM, CAD, GI Bleed Cholecystecto my. Cardiac Cath, Bilat Foot COMPARISON: [facility], FOOT LEFT LIMITED (2VWS), 02/13/2018. . TECHNIQUE: Multiplanar, multisequence MRI examination was performed without contrast and after th e intravenous administration of 20 ml Omniscan (gadodiamide) single exam dose. FINDINGS: Bones: There is heterogeneous bone marrow signal in the talus that has an appearance suggesting a deg enerative etiology. Otherwise, bone marrow signal is within normal limits. There is an old healed fif th metatarsal fracture. No concerning bone marrow edema or enhancement is identified. Joint Spaces: There is some degree of fusion at the tibiotalar joint. There is joint space narrowing and osteophytes at the subtalar joint and talonavicular joint. Lisfranc joint appears intact. Soft Tissues: There is diffuse subcutaneous edema. There is mild edema within the muscles of the plan tar aspect of the foot. Tendons demonstrate no acute abnormality. Post Contrast: There is a mild degree of subcutaneous enhancement on the dorsal aspect of the foot. T he bones demonstrate no abnormal enhancement. CONCLUSION: 1. Diffuse subcutaneous edema of the foot with mild enhancement along the dorsal aspect of the foot. This could represent cellulitis. No abscess is identified and there are no findings to indicate oste omyelitis. 2. There is some degree of osseous fusion at the tibiotalar joint and there is severe degenerative c hange at the subtalar joint and talonavicular joint. 3. Old healed fracture of the fifth metatarsal. Electronically signed by: Gilmar Knox MD 02/14/2018 7:40 PM EDT
--- NOTE | 2018-02-14 19:46 | RADRPT ---
EXAM DATE: 02/14/2018 7:22 PM EDT AGE/SEX: 62 years / Male INDICATIONS: . Cellulitis CLINICAL DATA: This is the patient's subsequent encounter. Patient reports that signs and symptoms h ave been present for 2 days and indicates a pain score of 5/10. MEDICAL/SURGICAL HISTORY: . Colon CA, HTN, BPH, HLD, CHF, CVA, DM, CAD, GI Bleed Cholecystecto my. Cardiac Cath, Bilat Foot COMPARISON: No prior [place] exams available for comparison. TECHNIQUE: Multiplanar, multisequence MRI examination was performed without contrast and after th e intravenous administration of 20 ml Omniscan (gadodiamide) single exam dose. FINDINGS: Bones: There is a transverse fracture through the mid fifth metatarsal. There is no associated bony e loyd suggesting that it is chronic. Bone marrow signal within the remaining bones is within normal li mits without any findings to suggest osteomyelitis. There is a retrograde keisha in the calcaneus, talus , and distal tibia along with interlocking screws. There is some degree of fusion at the tibiotalar j oint. Joint Spaces: No joint effusion is visualized. Soft Tissues: There is severe edema along the dorsal aspect of the foot. Mild edema is present in the plantar aspect soft tissues. Post Contrast: There is a mild degree of enhancement of the skin and subcutaneous tissues dorsally. CONCLUSION: 1. Severe edema along the dorsal aspect of the foot with mild enhancement. This could represent a ce llulitis. 2. There is a chronic fracture of the mid fifth metatarsal. 3. Changes related to arthrodesis at the tibiotalar joint. Electronically signed by: Gilmar Knox MD 02/14/2018 7:45 PM EDT
[2018-02-15] VITALS (19 sets, daily range): BP systolic 98–124; BP diastolic 53–65; PULSE 75–96; RESP 16–18; TEMP 97.5–99; O2SAT 97–99
[2018-02-15] MEDS: RESP: ALBUTEROL 2.5 MG/IPRATROPIUM 0.5 MG NEB (SCH) INH ×7 (00:17→23:25)
[2018-02-15] MEDS: OXACILLIN INJ 2 GM in SODIUM CHLORIDE 0.9% INJ 100 ML IV SCH ×6 (01:04→21:47)
[2018-02-15] MEDS: CHLORHEXIDINE GLUCONATE 2 % 1 PACK (2 CLOTHS) TOP SCH (04:00)
[2018-02-15 04:25] LABS: HEMATOCRIT 33.9 % (39.0-51.0); HEMOGLOBIN 11.4 GM/DL (13.0-17.0); MEAN CELL VOLUME 81.5 FL (80.0-100.0); MEAN CORPUSCULAR HEMOGLOBIN 27.5 PG (27.0-34.0); MEAN CORPUSCULAR HGB CONC 33.7 % (32.0-36.0); PLATELET COUNT 115 TH/MM3 (150-450); RED BLOOD COUNT 4.16 MIL/MM3 (4.50-5.90); RED CELL DISTRIBUTION WIDTH 17.5 % (11.6-17.2); WHITE BLOOD COUNT 9.5 TH/MM3 (4.0-11.0)
[2018-02-15] MEDS: PROPOFOL 1000 MG/100 ML INJ 100 ML IV PRN ×5 (04:39→21:56)
[2018-02-15 04:58] LABS: ALBUMIN 2.4 GM/DL (3.4-5.0); ALKALINE PHOSPHATASE 86 U/L (45-117); ALT (GPT) 104 U/L (12-78); AST (GOT) 117 U/L (15-37); BICARBONATE 28.9 MEQ/L (21.0-32.0); BLOOD UREA NITROGEN 46 MG/DL (7-18); CALCIUM 7.6 MG/DL (8.5-10.1); CHLORIDE 95 MEQ/L (98-107); GLOMERULAR FILTRATION RATE 29 ML/MIN (>89); GLUCOSE,RANDOM 284 MG/DL (74-106); SODIUM (NA) 134 MEQ/L (136-145); TOTAL BILIRUBIN ADULT 0.9 MG/DL (0.2-1.0); TOTAL PROTEIN 6.4 GM/DL (6.4-8.2)
[2018-02-15] MEDS: HEPARIN SODIUM - SQ 10,000 UNITS/ML VIAL SQ SCH ×3 (05:11→21:47)
[2018-02-15] MEDS: INSULIN ASPART SUPPLEMENTAL SCALE SQ SCH ×3 (05:12→17:24)
[2018-02-15] MEDS: PANTOPRAZOLE SODIUM 40 MG VIAL IV PUSH SCH (07:37)
[2018-02-15] MEDS: guaiFENesin E.R. 600 MG TAB PO SCH ×2 (07:37→20:07)
[2018-02-15] MEDS: CHLORHEXIDINE 0.12% (ORAL KIT) 15 ML CUP MT SCH ×2 (07:38→20:07)
[2018-02-15] MEDS: SODIUM BICARBONATE 8.4% INJ 150 MEQ in DEXTROSE 5% IN WATE 1000ML INJ 1,000 ML IV SCH ×4 (08:30→21:46)
--- NOTE | 2018-02-15 08:30 | HHI.CCPN ---
Subjective Remarks/Hospital Course Hospital Course: This is a 62yM with history of prior stroke, DM, CAD who presents after his brother found him after he fell. He states he was on the floor for > 18 hours. He endorses a week of fatigue, fever, chills. denies any other symptoms. denies chest pain, shortness of breath, nausea, vomiting, constipation, diarrhea. does endorse generalized abdominal pain which is mild. in the ER he was tachycardic and very diaphoretic. he has laboratory evidence of CK 7000, wbc 17k, Cr 1.3, trop 0.8. CT chest/abd/pelvis unremarkable. CT head and c-spine negative for trauma. febrile to 103 in the ER. given 2L NS ivf with improvement in his HR. remainder of ROS negative. 02/13: somewhat improved, feeling slightly better. remains febrile. cultures still pending. repeat lactate pending. HR improving. 02/14: Patient had episodes of temperatures of 103 with diaphoresis tachypnea yesterday. Blood cultures growing staph aureus 4 out of 4. Evaluated by ANGI Otero yesterday. Respiratory status declined overnight and patient was intubated and placed on mechanical ventilation. Currently remains sedated, orally intubated on mechanical ventilation. 02/15: Remains sedated, orally intubated on mechanical ventilation. Cardiology consulted by Dr. Otero to evaluate for STEF for persistent MSSA bacteremia. Objective Vital Signs Date Time Temp Pulse Resp B/P (MAP) Pulse Ox O2 Delivery O2 Flow Rate FiO2 02/15/18 07:15 98 35 02/15/18 06:00 96 02/15/18 04:00 97.5 18 112/65 (81) 02/14/18 19:00 Mechanical Ventilator 02/13/18 19:55 6.00 Intake and Output 02/15/18 02/15/18 02/16/18 08:00 16:00 00:00 Intake Total 621 ml Output Total 200 ml Balance 421 ml Result Diagram: 02/15/18 0322 02/15/18 0322 Imaging Last Impressions Chest X-Ray 02/12/186 Signed Impressions: CONCLUSION: 1. New mild focal infiltrate in the left lung base. 2. No evidence of free air. Head CT 02/12/18 0000 Signed Impressions: CONCLUSION: Chronic small vessel ischemic and atrophic changes. Cervical Spine CT 02/12/18 Signed Impressions: CONCLUSION: Unremarkable study except for slight degenerative spondylosis. CT Angiography 02/12/18 Signed Impressions: CONCLUSION: 1. Possible nodules within the thyroid gland mainly on the right side. 2. Slight fatty liver. 3. No definite pulmonary embolus. Abdomen/Pelvis CT 02/12/18 Signed Impressions: CONCLUSION: 1. Slight fatty liver. 2. Probable left adrenal adenoma. Objective Remarks HEENT/ Neuro: Sedated, orally intubated, Pallor present, no icterus, tongue/ mucosa MOIST Neck: No JVD Chest/Pulm: on mech vent, good air entry bilaterally, no wheezing or crackles CVS: S1-S2 regular, no murmur GI/abdomen: soft, nontender, bowel sounds sluggish Extremities: right ankle is swollen and edematous, erythematous. there is a small area approximately 1cm x 2cm ulceration. this appears to be well healing with good granulation tissue. there is no area of purulence. left ankle also appears erythematous and edematous with mild tenderness to palpation. no purulent drainage. A/P Assessment and Plan Assessment: 62yM with rhabdomyolysis and severe sepsis with MSSA bacteremia: likely foot cellulitis as a source. clearly infected with fever, leukocytosis, tachycardia, and end-organ dysfunction from his sepsis. continue abx and ivf. trend CK. Highly complex with multiple organ systems involved. Severe sepsis - source likely LE cellulitis - MRI bilateral feet - podiatry consult -ID consult Dr. Otero evaluated patient on 02/13. -Continue IV vancomycin. Zosyn stopped on 02/[address] Otero as blood cultures growing staph aureus. - blood cultures: Gram-positive cocci 12/18 BOTTLES - sputum culture - ivf Acute Rhabdomyolysis - trend ck -Bicarb gtt @ 100 cc/hr - continue best - strict i/o's Acute kidney injury - secondary to severe sepsis and rhabdo - daily bmp - strict i/os - u/a Acute Type II NSTEMI, Elevated troponin, likely secondary to demand ischemia - trend troponin - given history of GI bleed and multiple organ dysfunction, in the setting of asymptomatic without overt chest pain, unlikely to be ACS and we will hold off on anticoagulation at this time. - EKG without ST elevation - CT pulmonary angiogram negative for PE. Possible ALI Acute respiratory failure on mechanical ventilation - ECHO WITH NORMAL lv/ rv FUNCTION - continue IVF -Sedation with propofol/fentanyl -Continue mechanical ventilation, vent bundle, bronchodilators as needed. -Daily sedation vacation -Daily CPAP trials to decide extubation Hyperglycemia Diabetes Mellitus, type 2 - SSI med scale, q6h Lactic Acidosis - secondary to severe sepsis - trend lactates - ivf Elevated LFTs - secondary to severe sepsis - trend Elevated T bili - likely secondary to severe sepsis - trend Hyponatremia - may be secondary to total body volume overload and history of CHF. - trend on daily bmp advance diet as tolerated SCDs [facility] protonix Flavio Zuniga MD Feb 15, 2018 08:30
[2018-02-15 08:44] LABS: AMORPHOUS SEDIMENT, URINE FEW; BACTERIA, URINE RARE /hpf; BILIRUBIN, URINE NEG (NEG); BLOOD, URINE MOD (NEG); GLUCOSE,URINE 150 mg/dL (NEG); KETONE, URINE NEG (NEG); MUCUS URINE FEW /lpf (OCC); NITRITE,URINE NEG (NEG); PH, URINE 5.5 (5.0-8.5); SQUAMOUS EPITHELIAL CELL URINE <1 /hpf (0-5); URINE COLOR YELLOW (YELLW/STRAW); URINE LEUKOCYTE ESTERASE MOD (NEG)
--- NOTE | 2018-02-15 09:45 | PD.CONS ---
HPI Consult Requested By Primary Care Physician Non-Staff History of Present Illness 62-year-old male with a past medical history of 2 vessel CAD 11/03 medically managed, HTN, HLD, DM, GERD who was found down. Currently the patient is intubated, sedated, mechanically ventilated and history is obtained from the medical record and staff communication. Reportedly the patient prior to presentation had a week of fatigue, fever, chills. He was found to have 4/4 initial blood cultures positive for staph aureus. He does have bilateral lower extremity wounds, podiatry and ID do not feel like these are the source of his infection. We have been asked to evaluate for STEF. (Luis Potter) Review of Systems ROS Limitations: Intubated (Luis Potter) Past Family Social History Allergies: Coded Allergies: No Known Allergies (Unverified , 10/21/17) Past Medical History Diabetes Hyperlipidemia Chronic pain syndrome bilateral lower extremity ulcers BPH Hypertension Colon cancer s/p partial colectomy prior NSTEMI severe 2-vessel CAD managed medically old RBBB prior GI bleed anemia secondary to GI bleeding Arthritis CHF, unknown type GERD Past Surgical History Cardiac catheterization 11/03 with no intervention partial colectomy skin grafts to right ankle left ankle surgery Reported Medications Reported Meds & Active Scripts Active Ferosul (Ferrous Sulfate) 325 Mg (65 Mg Iron) Tablet 325 Mg PO DAILY 30 Days Pantoprazole (Pantoprazole Sodium) 40 Mg Tab 40 Mg PO Q12HR 30 Days Carafate (Sucralfate) 1 Gram Tab 1 Gm PO BIDAC 30 Days Isosorbide Mononitrate ER (Isosorbide Mononitrate) 60 Mg Tab 120 Mg PO DAILY@07 30 Days Reported Fish Oil + D3 (Fish Oil-Cholecalciferol) 1,200-1,000 Mg-Unit Cap 2 Cap PO BID Tamsulosin (Tamsulosin HCl) 0.4 Mg Cap 0.4 Mg HS Centrum (Multiple Vitamins W/ Minerals) 1 Chew 1 Tab CHEW DAILY Colace (Docusate Sodium) 100 Mg Capsule 1 Caplet PO DAILY Diphenhydramine (Diphenhydramine HCl) 25 Mg Cap 50 Mg PO Q12H PRN Ecotrin Low Strength (Aspirin) 81 Mg Tabdr 81 Mg PO DAILY Simvastatin 20 Mg Tab 20 Mg PO DAILY Januvia (Sitagliptin Phosphate) 50 Mg Tab 50 Mg PO DAILY Losartan (Losartan Potassium) 25 Mg Tab 25 Mg PO DAILY Glipizide 5 Mg Tab 5 Mg PO BID Take 30 minutes before a meal Metformin (Metformin HCl) 500 Mg Tab 500 Mg PO BID Active Ordered Medications Current Medications Medications (Trade) Dose Ordered Sig/Ada Route Start Time Stop Time Status Last Admin (NS Flush) 2 ml UNSCH PRN IV FLUSH 02/12/18 21:45 02/12/18 21:58 Potassium Chloride 100 ml @ 50 mls/hr Q2H PRN IV 02/13/18 00:00 Potassium Chloride 100 ml @ 50 mls/hr Q2H PRN IV 02/13/18 00:00 02/13/18 17:08 (K-Lyte Cl Eff) 50 meq UNSCH PRN PO 02/13/18 00:00 Potassium Chloride 100 ml @ 25 mls/hr UNSCH PRN IV 02/13/18 00:00 Potassium Chloride 100 ml @ 50 mls/hr Q2H PRN IV 02/13/18 00:00 Magnesium Sulfate 4 gm/Sodium Chloride 100 ml @ 50 mls/hr UNSCH PRN IV 02/13/18 00:00 (Mag-Ox) 800 mg UNSCH PRN PO 02/13/18 00:00 Magnesium Sulfate 2 gm/Sodium Chloride 100 ml @ 50 mls/hr UNSCH PRN IV 02/13/18 00:00 (K-Phos) 2,000 mg Q4H PRN PO 02/13/18 00:00 Sodium Phosphate 30 mmol/Sodium Chloride 250 ml @ 42 mls/hr UNSCH PRN IV 02/13/18 00:00 (K-Phos) 2,000 mg UNSCH PRN PO/TUBE 02/13/18 00:00 Potassium Phosphate 30 mmol/ Sodium Chloride 260 ml @ 42 mls/hr UNSCH PRN IV 02/13/18 00:00 (Duoneb Neb) 1 ampule Q2HR NEB PRN INH 02/13/18 00:00 02/13/18 11:38 (Protonix Inj) 40 mg DAILY IV PUSH 02/13/18 09:00 02/15/18 07:37 ([facility] [place] [facility] [place]) 1 Q361D XX 02/13/18 00:00 (Chlorhexidine 2% Cloth) 3 pack Taper DAILY@04 TOP 02/13/18 04:00 02/09/19 03:59 6/2/18 04:00 (Chlorhexidine 2% Cloth) 3 pack UNSCH PRN TOP 02/13/18 00:00 (Heparin Inj) 5,000 units Q8HR SQ 02/13/18 06:00 02/15/18 05:11 (Roxicodone) 5 mg Q4H PRN PO 02/13/18 09:00 (Dilaudid Pf Inj) 0.2 mg Q4H PRN IV PUSH 02/13/18 09:00 02/13/18 09:52 (Tylenol) 650 mg Q4H PRN PO 02/13/18 10:45 02/14/18 19:23 (Trandate Inj) 20 mg Q2H PRN IV PUSH 02/13/18 11:00 02/13/18 17:49 (Mucinex Er) 600 mg BID PO 02/13/18 11:00 02/15/18 07:37 (Cepacol Extra Sia (Sugar Free)) 1 lozenge Q1H PRN BUCCAL 02/13/18 11:00 02/13/18 11:03 (Duoneb Neb) 1 ampule Q4HR NEB INH 02/13/18 12:00 02/15/18 07:13 (NovoLOG SUPPLEMENTAL SCALE) 1 Q6HR SQ 02/13/18 12:15 02/15/18 05:12 (D50w (Syr) Inj) 50 ml UNSCH PRN IV PUSH 02/13/18 12:15 (Glucagon Inj) 1 mg UNSCH PRN OTHER 02/13/18 12:15 Propofol 100 ml @ 3.66 mls/hr TITRATE PRN IV 02/13/18 19:45 02/15/18 08:50 (Peridex 0.12% Liq) 15 ml BID@08,20 MT 02/14/18 08:00 02/15/18 07:38 Fentanyl Citrate 250 ml @ 5 mls/hr TITRATE PRN IV 02/13/18 21:15 02/14/18 21:47 Sodium Bicarbonate 150 meq/Dextrose 1,150 ml @ 100 mls/hr [id number] IV 02/13/18 22:00 02/14/18 20:34 Oxacillin Sodium 2 gm/Sodium Chloride 100 ml @ 200 mls/hr Q4H IV 02/14/18 10:00 6/2/18 07:37 Family History Unobtainable Social History No tob, etoh, doa. (Luis Potter) Physical Exam Vital Signs Vital Signs Date Time Temp Pulse Resp B/P (MAP) Pulse Ox O2 Delivery O2 Flow Rate FiO2 02/15/18 08:00 35 02/15/18 08:00 98.7 93 16 124/63 (83) 98 02/15/18 08:00 99 Mechanical Ventilator 35 02/15/18 08:00 93 02/15/18 07:15 98 35 02/15/18 06:00 96 02/15/18 04:34 98 35 02/15/18 04:00 97.5 76 18 112/65 (81) 98 02/15/18 04:00 40 02/15/18 04:00 75 02/15/18 02:00 75 02/15/18 00:09 99 35 02/15/18 00:00 99.0 76 18 107/64 (78) 98 02/15/18 00:00 77 02/15/18 00:00 40 02/14/18 22:00 84 02/14/18 20:00 40 02/14/18 20:00 100.2 97 18 115/59 (77) 100 02/14/18 20:00 97 02/14/18 19:00 100 Mechanical Ventilator 35 02/14/18 17:00 98 100 02/14/18 16:00 106 02/14/18 16:00 35 02/14/18 16:00 100.3 106 13 135/74 (94) 96 02/14/18 14:36 96 35 02/14/18 14:00 100 02/14/18 12:00 35 02/14/18 12:00 98.8 87 18 99/61 (74) 98 02/14/18 12:00 87 02/14/18 10:00 87 Physical Exam GENERAL: Well-developed well-nourished. Appears in no acute distress. NECK: No carotid bruits. No JVD. CARDIOVASCULAR: Regular rate and rhythm. No murmur appreciated. RESPIRATORY: No accessory muscle use. Clear to auscultation. Breath sounds equal bilaterally. MUSCULOSKELETAL: Bilateral ankles with clean dressings. No edema. NEUROLOGICAL: Intubated, sedated, mechanically ventilated. Laboratory Laboratory Tests Test 02/14/18 11:08 02/14/18 16:17 02/15/18 03:22 02/15/18 07:52 Total Creatine Kinase 2310 1902 Creatine Kinase MB 4.2 3.5 Creatine Kinase MB % 0.2 0.2 White Blood Count 9.5 Red Blood Count 4.16 Hemoglobin 11.4 Hematocrit 33.9 Mean Corpuscular Volume 81.5 Mean Corpuscular Hemoglobin 27.5 Mean Corpuscular Hemoglobin Concent 33.7 Red Cell Distribution Width 17.5 Platelet Count 115 Mean Platelet Volume 10.0 Blood Urea Nitrogen 46 Creatinine 2.30 Random Glucose 284 Total Protein 6.4 Albumin 2.4 Calcium Level 7.6 Alkaline Phosphatase 86 Aspartate Amino Transf (AST/SGOT) 117 Alanine Aminotransferase (ALT/SGPT) 104 Total Bilirubin 0.9 Sodium Level 134 Potassium Level 4.2 Chloride Level 95 Carbon Dioxide Level 28.9 Anion Gap 10 Estimat Glomerular Filtration Rate 29 Urine Color YELLOW Urine Turbidity HAZY Urine pH 5.5 Urine Specific Petal 1.028 Urine Protein 30 Urine Glucose (UA) 150 Urine Ketones NEG Urine Occult Blood MOD Urine Nitrite NEG Urine Bilirubin NEG Urine Urobilinogen LESS THAN 2.0 Urine Leukocyte Esterase MOD Urine RBC 61 Urine WBC 6 Urine Squamous Epithelial Cells <1 Urine Amorphous Sediment FEW Urine Bacteria RARE Urine Mucus FEW Microscopic Urinalysis Comment CATH-CULTURE IND Date/Time Source Procedure Growth Status 02/15/18 09:00 Blood Peripheral Aerobic Blood Culture Pending Received 02/15/18 09:00 Blood Peripheral Anaerobic Blood Culture Pending Received 02/15/18 07:52 Sputum Endotracheal Gram Stain Pending Received 02/15/18 07:52 Sputum Endotracheal Sputum Culture Pending Received 02/15/18 07:52 Urine Catheterized Urine Urine Culture Pending Received (Luis Potter) Result Diagram: 02/15/18 0322 02/15/18 0322 Imaging Last Impressions Foot MRI 02/14/18 0000 Signed Impressions: CONCLUSION: 1. Diffuse subcutaneous edema of the foot with mild enhancement along the dors al aspect of the foot. This could represent cellulitis. No abscess is identifie d and there are no findings to indicate osteomyelitis. 2. There is some degree of osseous fusion at the tibiotalar joint and there is severe degenerative change at the subtalar joint and talonavicular joint. 3. Old healed fracture of the fifth metatarsal. Foot X-Ray 02/13/18 Signed Impressions: CONCLUSION: 1. There is a transverse fracture through the mid fifth metatarsal. Adjacent p eriosteal reaction is present suggesting that it is subacute or chronic. 2. There has been prior arthrodesis of the subtalar joint and tibiotalar joint s with osseous fusion. Hypertrophic osteophytes are present at the talonavicula r joint. Chest X-Ray 02/13/18 Signed Impressions: CONCLUSION: Endotracheal tube in good position. Abdomen X-Ray 02/13/18 Signed Impressions: CONCLUSION: 1. Prominent gaseous distention of the stomach. Patient may benefit from gastr ic decompression. 2. No significant dilatation of the bowel at this time. Head CT 02/12/18 Signed Impressions: CONCLUSION: Chronic small vessel ischemic and atrophic changes. Cervical Spine CT 02/12/18 Signed Impressions: CONCLUSION: Unremarkable study except for slight degenerative spondylosis. CT Angiography 02/12/18 Signed Impressions: CONCLUSION: 1. Possible nodules within the thyroid gland mainly on the right side. 2. Slight fatty liver. 3. No definite pulmonary embolus. Abdomen/Pelvis CT 02/12/18 Signed Impressions: CONCLUSION: 1. Slight fatty liver. 2. Probable left adrenal adenoma. (Luis Potter) Assessment and Plan Assessment and Plan 62-year-old male with a past medical history of 2 vessel CAD 11/03 medically managed, HTN, HLD, DM, GERD who was found down. Currently the patient is intubated, sedated, mechanically ventilated and history is obtained from the medical record and staff communication. Reportedly the patient prior to presentation had a week of fatigue, fever, chills. He was found to have 4/4 initial blood cultures positive for staph aureus. He does have bilateral lower extremity wounds, podiatry and ID do not feel like these are the source of his infection. We have been asked to evaluate for STEF. High-grade MSSA bacteremia: ID on board and is requested STEF to rule out endocarditis, will plan for Saturday. History of CAD: Resume aspirin, statin, Imdur when able. Discussed Condition With Patient with RN at bedside, Dr. Francisco (Luis Potter) Luis Potter Feb 15, 2018 09:45 Eber Francisco MD Feb 15, 2018 10:08
[2018-02-15] MEDS: fentaNYL DRIP 250 ML IV PRN ×2 (10:15→20:20)
[2018-02-16] VITALS (18 sets, daily range): BP systolic 117–135; BP diastolic 60–65; PULSE 80–90; RESP 18; TEMP 97.7–99.7; O2SAT 96–99
[2018-02-16] MEDS: PROPOFOL 1000 MG/100 ML INJ 100 ML IV PRN ×7 (01:44→23:26)
[2018-02-16] MEDS: OXACILLIN INJ 2 GM in SODIUM CHLORIDE 0.9% INJ 100 ML IV SCH ×3 (01:59→07:51)
[2018-02-16] MEDS: CHLORHEXIDINE GLUCONATE 2 % 1 PACK (2 CLOTHS) TOP SCH (04:00)
[2018-02-16] MEDS: RESP: ALBUTEROL 2.5 MG/IPRATROPIUM 0.5 MG NEB (SCH) INH ×5 (04:22→19:33)
[2018-02-16] MEDS: HEPARIN SODIUM - SQ 10,000 UNITS/ML VIAL SQ SCH ×3 (04:57→23:26)
[2018-02-16] MEDS: INSULIN ASPART SUPPLEMENTAL SCALE SQ SCH ×5 (04:58→23:53)
[2018-02-16 05:12] LABS: HEMATOCRIT 34.8 % (39.0-51.0); HEMOGLOBIN 11.7 GM/DL (13.0-17.0); MEAN CELL VOLUME 82.4 FL (80.0-100.0); MEAN CORPUSCULAR HEMOGLOBIN 27.7 PG (27.0-34.0); MEAN CORPUSCULAR HGB CONC 33.6 % (32.0-36.0); MEAN PLATELET VOLUME 9.9 FL (7.0-11.0); PLATELET COUNT 120 TH/MM3 (150-450); RED BLOOD COUNT 4.22 MIL/MM3 (4.50-5.90); RED CELL DISTRIBUTION WIDTH 17.5 % (11.6-17.2); WHITE BLOOD COUNT 9.1 TH/MM3 (4.0-11.0)
[2018-02-16] MEDS: fentaNYL DRIP 250 ML IV PRN ×3 (05:39→23:26)
[2018-02-16 05:41] LABS: ALKALINE PHOSPHATASE 175 U/L (45-117); ALT (GPT) 174 U/L (12-78); AST (GOT) 135 U/L (15-37); BICARBONATE 30.4 MEQ/L (21.0-32.0); BLOOD UREA NITROGEN 59 MG/DL (7-18); CALCIUM 7.5 MG/DL (8.5-10.1); CHLORIDE 91 MEQ/L (98-107); CREATININE 4.14 MG/DL (0.60-1.30); GLOMERULAR FILTRATION RATE 15 ML/MIN (>89); GLUCOSE,RANDOM 300 MG/DL (74-106); SODIUM (NA) 134 MEQ/L (136-145); TOTAL BILIRUBIN ADULT 2.1 MG/DL (0.2-1.0); TOTAL PROTEIN 6.5 GM/DL (6.4-8.2)
[2018-02-16] MEDS ORDERED: PHARMACY ORDERED LAB ONE (05:45)
--- NOTE | 2018-02-16 06:18 | RADRPT ---
EXAM DATE: 02/16/2018 6:14 AM EDT AGE/SEX: 62 years / Male INDICATIONS: Shortness of breath, possible pulmonary disease. CLINICAL DATA: This is the patient's subsequent encounter. Patient reports that signs and symptoms h ave been present for 4 - 6 days and indicates a pain score of Nonresponsive. MEDICAL/SURGICAL HISTORY: Carcinoma, colon. Hypertension. Hypercholesterolemia. CHF CVA BPH None. COMPARISON: [facility] [place], 02/13/2018. . FINDINGS: The ET tube and NG tube are well placed. The heart size is enlarged. The lungs are grossly clear. CONCLUSION: Cardiomegaly. Electronically signed by: Gilmar Gilmore MD 02/16/2018 6:17 AM EDT
[2018-02-16] MEDS: PANTOPRAZOLE SODIUM 40 MG VIAL IV PUSH SCH (07:51)
[2018-02-16] MEDS: guaiFENesin E.R. 600 MG TAB PO SCH ×2 (07:51→20:26)
[2018-02-16] MEDS: CHLORHEXIDINE 0.12% (ORAL KIT) 15 ML CUP MT SCH ×2 (07:52→20:26)
--- NOTE | 2018-02-16 08:35 | PD.CARD.PN ---
Subjective Subjective Remarks Patient remains intubated, sedated, mechanically ventilated. Telemetry with NSR today. (Luis Potter) Objective Medications Current Medications Medications (Trade) Dose Ordered Sig/Ada Route Start Time Stop Time Status Last Admin (NS Flush) 2 ml UNSCH PRN IV FLUSH 02/12/18 21:45 02/12/18 21:58 (Duoneb Neb) 1 ampule Q2HR NEB PRN INH 02/13/18 00:00 02/13/18 11:38 (Protonix Inj) 40 mg DAILY IV PUSH 02/13/18 09:00 02/16/18 07:51 [place] [place] 1 Q361D XX 02/13/18 00:00 (Chlorhexidine 2% Cloth) 3 pack Taper DAILY@04 TOP 02/13/18 04:00 02/09/19 03:59 02/16/18 04:00 (Chlorhexidine 2% Cloth) 3 pack UNSCH PRN TOP 02/13/18 00:00 (Heparin Inj) 5,000 units Q8HR SQ 02/13/18 06:00 02/16/18 04:57 (Roxicodone) 5 mg Q4H PRN PO 02/13/18 09:00 (Dilaudid Pf Inj) 0.2 mg Q4H PRN IV PUSH 02/13/18 09:00 02/13/18 09:52 (Tylenol) 650 mg Q4H PRN PO 02/13/18 10:45 02/14/18 19:23 (Trandate Inj) 20 mg Q2H PRN IV PUSH 02/13/18 11:00 02/13/18 17:49 (Mucinex Er) 600 mg BID PO 02/13/18 11:00 02/16/18 07:51 (Cepacol Extra Sia (Sugar Free)) 1 lozenge Q1H PRN BUCCAL 02/13/18 11:00 02/13/18 11:03 (Duoneb Neb) 1 ampule Q4HR NEB INH 02/13/18 12:00 02/16/18 07:03 (NovoLOG SUPPLEMENTAL SCALE) 1 Q6HR SQ 02/13/18 12:15 02/16/18 04:58 (D50w (Syr) Inj) 50 ml UNSCH PRN IV PUSH 02/13/18 12:15 (Glucagon Inj) 1 mg UNSCH PRN OTHER 02/13/18 12:15 Propofol 100 ml @ 3.66 mls/hr TITRATE PRN IV 02/13/18 19:45 02/16/18 05:38 (Peridex 0.12% Liq) 15 ml BID@08,20 MT 02/14/18 08:00 02/16/18 07:52 Fentanyl Citrate 250 ml @ 5 mls/hr TITRATE PRN IV 02/13/18 21:15 02/16/18 05:39 Sodium Bicarbonate 150 meq/Dextrose 1,150 ml @ 100 mls/hr [id number] IV 02/13/18 22:00 02/15/18 21:46 Oxacillin Sodium 2 gm/Sodium Chloride 100 ml @ 200 mls/hr Q4H IV 02/14/18 10:00 02/16/18 07:51 Vital Signs / I&O Vital Signs Date Time Temp Pulse Resp B/P (MAP) Pulse Ox O2 Delivery O2 Flow Rate FiO2 02/16/18 07:03 96 35 02/16/18 06:00 86 02/16/18 04:23 97 35 02/16/18 04:00 97.7 84 18 129/65 (86) 96 02/16/18 04:00 84 02/16/18 04:00 35 02/16/18 02:00 88 02/16/18 00:00 35 02/16/18 00:00 86 02/16/18 00:00 99.7 86 18 125/61 (82) 96 02/15/18 23:25 97 35 02/15/18 22:00 86 02/15/18 20:00 35 02/15/18 20:00 97.7 82 18 116/59 (78) 97 02/15/18 20:00 82 02/15/18 19:34 97 35 02/15/18 19:00 97 Mechanical Ventilator 35 02/15/18 18:00 80 02/15/18 16:00 80 02/15/18 16:00 35 02/15/18 16:00 97.6 80 18 98/53 (68) 98 02/15/18 14:46 98 35 02/15/18 14:00 78 02/15/18 12:00 98.8 87 18 119/61 (80) 97 02/15/18 12:00 87 02/15/18 12:00 35 02/15/18 11:32 97 35 02/15/18 10:00 87 I/O 02/15/18 02/15/18 02/15/18 02/16/18 02/16/18 02/16/18 07:00 15:00 23:00 07:00 15:00 23:00 Intake Total 721 ml 1600 ml 2520.4 ml 1485 ml Output Total 200 ml 300 ml 200 ml Balance 521 ml 1600 ml 2220.4 ml 1285 ml IV Total 400 ml 1600 ml 1896.4 ml 643 ml Tube Feeding 321 ml 624 ml 782 ml Tube Irrigant 60 ml Output Urine Total 200 ml 300 ml 200 ml # Bowel Movements 0 0 0 Physical Exam GENERAL: Well-developed well-nourished. Appears in no acute distress. NECK: No carotid bruits. No JVD. CARDIOVASCULAR: Regular rate and rhythm. No murmur appreciated. RESPIRATORY: No accessory muscle use. Clear to auscultation. Breath sounds equal bilaterally. MUSCULOSKELETAL: Bilateral ankles with clean dressings. No edema. NEUROLOGICAL: Intubated, sedated, mechanically ventilated. Laboratory Laboratory Tests Test 02/16/18 04:03 02/16/18 06:40 White Blood Count 9.1 TH/MM3 Red Blood Count 4.22 MIL/MM3 Hemoglobin 11.7 GM/DL Hematocrit 34.8 % Mean Corpuscular Volume 82.4 FL Mean Corpuscular Hemoglobin 27.7 PG Mean Corpuscular Hemoglobin Concent 33.6 % Red Cell Distribution Width 17.5 % Platelet Count 120 TH/MM3 Mean Platelet Volume 9.9 FL CBC Comment AUTO DIFF Blood Urea Nitrogen 59 MG/DL Creatinine 4.14 MG/DL Random Glucose 300 MG/DL Total Protein 6.5 GM/DL Albumin 2.0 GM/DL Calcium Level 7.5 MG/DL Alkaline Phosphatase 175 U/L Aspartate Amino Transf (AST/SGOT) 135 U/L Alanine Aminotransferase (ALT/SGPT) 174 U/L Total Bilirubin 2.1 MG/DL Sodium Level 134 MEQ/L Potassium Level 4.6 MEQ/L Chloride Level 91 MEQ/L Carbon Dioxide Level 30.4 MEQ/L Anion Gap 13 MEQ/L Estimat Glomerular Filtration Rate 15 ML/MIN B-Type Natriuretic Peptide 201 PG/ML Imaging Last 24 hours Impressions Chest X-Ray 02/16/18 0600 Signed Impressions: CONCLUSION: Cardiomegaly. (Luis Potter) Assessment and Plan Assessment and Plan 62-year-old male with a past medical history of 2 vessel CAD 11/03 medically managed, HTN, HLD, DM, GERD who was found down. Currently the patient is intubated, sedated, mechanically ventilated and history is obtained from the medical record and staff communication. Reportedly the patient prior to presentation had a week of fatigue, fever, chills. He was found to have 4/4 initial blood cultures positive for staph aureus. He does have bilateral lower extremity wounds, podiatry and ID do not feel like these are the source of his infection. We have been asked to evaluate for STEF. High-grade MSSA bacteremia: ID on board and is requested STEF to rule out endocarditis, tentatively planning for Saturday. History of CAD: Resume aspirin, statin, Imdur when able. (Luis Potter) Assessment and Plan + persistent bacteremia STEF - preliminary findings. full report to follow. Normal EF. RV normal size/ function. Small mobile echodensity on the subvalvular apparatus of the posterior mitral valve leaflet. This may represent sclerosis vs partial chordae tendinea rupture vs vegetation. Mild eccentric mitral valve regurgitation. Given circumstances, would treat empirically as endocarditis. ARF likely ATN will sign off call with further questions (Eber Francisco MD) Luis Potter Feb 16, 2018 08:35 Eber Francisco MD Feb 16, 2018 10:54
[2018-02-16] MEDS: SODIUM BICARBONATE 8.4% INJ 150 MEQ in DEXTROSE 5% IN WATE 1000ML INJ 1,000 ML IV SCH ×2 (08:59)
--- NOTE | 2018-02-16 09:32 | HHI.CCPN ---
Subjective Remarks/Hospital Course Hospital Course: This is a 62yM with history of prior stroke, DM, CAD who presents after his brother found him after he fell. He states he was on the floor for > 18 hours. He endorses a week of fatigue, fever, chills. denies any other symptoms. denies chest pain, shortness of breath, nausea, vomiting, constipation, diarrhea. does endorse generalized abdominal pain which is mild. in the ER he was tachycardic and very diaphoretic. he has laboratory evidence of CK 7000, wbc 17k, Cr 1.3, trop 0.8. CT chest/abd/pelvis unremarkable. CT head and c-spine negative for trauma. febrile to 103 in the ER. given 2L NS ivf with improvement in his HR. remainder of ROS negative. 02/13: somewhat improved, feeling slightly better. remains febrile. cultures still pending. repeat lactate pending. HR improving. 02/14: Patient had episodes of temperatures of 103 with diaphoresis tachypnea yesterday. Blood cultures growing staph aureus 4 out of 4. Evaluated by ANGI Otero yesterday. Respiratory status declined overnight and patient was intubated and placed on mechanical ventilation. Currently remains sedated, orally intubated on mechanical ventilation. 02/15: Remains sedated, orally intubated on mechanical ventilation. Cardiology consulted by Dr. Otero to evaluate for STEF for persistent MSSA bacteremia. 02/16: remains very critically ill. persistent + blood cultures for MSSA. STEF still pending. Cr doubled overnight again despite +10L in last 48h. no improvement at all, and all organ systems are worse. no implantable devices. central lines were placed on admission. Objective Vital Signs Date Time Temp Pulse Resp B/P (MAP) Pulse Ox O2 Delivery O2 Flow Rate FiO2 02/16/18 07:03 96 35 02/16/18 07:00 Mechanical Ventilator 02/16/18 06:00 86 02/16/18 04:00 97.7 18 129/65 (86) 02/13/18 19:55 6.00 Intake and Output 02/16/18 02/16/18 02/16/18 07:59 15:59 23:59 Intake Total 1485 ml Output Total 200 ml Balance 1285 ml Result Diagram: 02/16/183 02/16/18 0403 Imaging Last Impressions Chest X-Ray 02/12/182205 Signed Impressions: CONCLUSION: 1. New mild focal infiltrate in the left lung base. 2. No evidence of free air. Head CT 02/12/18 Signed Impressions: CONCLUSION: Chronic small vessel ischemic and atrophic changes. Cervical Spine CT 02/12/18 Signed Impressions: CONCLUSION: Unremarkable study except for slight degenerative spondylosis. CT Angiography 02/12/18 Signed Impressions: CONCLUSION: 1. Possible nodules within the thyroid gland mainly on the right side. 2. Slight fatty liver. 3. No definite pulmonary embolus. Abdomen/Pelvis CT 02/12/18 Signed Impressions: CONCLUSION: 1. Slight fatty liver. 2. Probable left adrenal adenoma. Objective Remarks HEENT/ Neuro: Sedated, orally intubated, Pallor present, no icterus, tongue/ mucosa moist Neck: No JVD Chest/Pulm: on mech vent, good air entry bilaterally, no wheezing or crackles CVS: S1-S2 regular, no murmur GI/abdomen: soft, nontender, no guarding Extremities: right ankle is swollen and edematous, erythematous. there is a small area approximately 1cm x 2cm ulceration. this appears to be well healing with good granulation tissue. there is no area of purulence. left ankle also appears erythematous and edematous with mild tenderness to palpation. no purulent drainage. A/P Assessment and Plan Assessment: 62yM with rhabdomyolysis and severe sepsis with MSSA bacteremia. clearly infected with fever, leukocytosis, tachycardia, and end-organ dysfunction from his sepsis. continue abx. will obtain STEF today. unclear volume status, but likely starting to be volume overloaded which is not helping kidney injury and respiratory failure, both of which are worse today. remains critically ill with organ failure deteriorating and actively worsening. Acute hypoxic and hypercarbic respiratory failure - vent bundle - hob elevated - nebs - wean fio2 for goal spo2 > 90% - no SBT today given worsening of clinical course Severe sepsis - source LE cellulitis? - MRI bilateral feet: negative for osteo - podiatry consult -ID consult Dr. Otero -Continue IV oxacillin - blood cultures: 02/12: 4/4 bottles MSSA 02/13: 2/4 bottles MSSA 02/15: 1/4 bottles MSSA - sputum culture: NGTD Acute Rhabdomyolysis- resolving. - d/c bicarb drip - continue best - strict i/o's Acute kidney injury- worsening - secondary to severe sepsis and rhabdo - daily bmp - strict i/os Acute Type II NSTEMI, Elevated troponin, likely secondary to demand ischemia - trend troponin - given history of GI bleed and multiple organ dysfunction, in the setting of asymptomatic without overt chest pain, unlikely to be ACS and we will hold off on anticoagulation at this time. - EKG without ST elevation - CT pulmonary angiogram negative for PE. Hyperglycemia Diabetes Mellitus, type 2 - SSI med scale, q6h Lactic Acidosis- resolving - secondary to severe sepsis - trend lactates Elevated LFTs - secondary to severe sepsis - trend Elevated T bili - likely secondary to severe sepsis - trend Hyponatremia - may be secondary to total body volume overload and history of CHF. - trend on daily bmp - may need forced diuresis despite organ injury. SCDs SQH protonix Critical care time: 45 minutes, exclusive of separately billable procedures. Ramon An MD Feb 16, 2018 09:32
[2018-02-16 10:29] LABS: BANDS 6 % (0-6); BASOPHILS 1 % (0-2); LYMPHOCYTES 11 % (9-44); MONOCYTES 11 % (0-8); NEUTROPHIL # MANUAL DIFF 6.6 TH/MM3 (1.8-7.7); POLYS (SEG NEUTROPHILS) 67 % (16-70)
--- NOTE | 2018-02-16 10:49 | HHI.IDPN ---
Subjective Subjective Remarks ID Xcover for is a 62 y/o with PMHx of prior stroke, DM, CAD who presents after his brother found him after he fell. He states he was on the floor for > 18 hours. In admitting history a week of fatigue, fever, chills, generalized abdominal pain which is mild. Labs showed CK 7000, wbc 17k, Cr 1.3, trop 0.8. CT chest/abd/pelvis unremarkable. CT head and c-spine negative for trauma. Pt is febrile with T max of 103 Lactic acidosis of 4.4 Elevated troponine + blood ketones Today blood clx positive 4/4 for GPC in pairs, clusters Intubated and sedated after ICU admission Overnight events reviewed No fevers No rash No diarrhea UO very low 200 cc overnight and 50 cc so far this am. Sedated. Underwent STEF with ? vegetation on mitral valve. official report pending. Antibiotics Oxacillin Lines PIVs look ok Past Medical History Past Medical History Diabetes Hyperlipidemia Chronic pain syndrome bilateral lower extremity ulcers BPH Hypertension Colon cancer s/p partial colectomy prior NSTEMI severe 2-vessel CAD managed medically old RBBB prior GI bleed anemia secondary to GI bleeding Arthritis CHF, unknown type GERD Past Surgical History partial colectomy skin grafts to right ankle left ankle surgery CABG Allergies: Coded Allergies: No Known Allergies (Unverified , 10/21/17) Objective . Vital Signs Date Time Temp Pulse Resp B/P (MAP) Pulse Ox O2 Delivery O2 Flow Rate FiO2 02/16/18 09:34 96 35 02/16/18 08:00 90 02/16/18 08:00 99.0 90 18 122/63 (82) 96 02/16/18 08:00 35 02/16/18 07:03 96 35 02/16/18 07:00 96 Mechanical Ventilator 35 02/16/18 06:00 86 02/16/18 04:23 97 35 02/16/18 04:00 97.7 84 18 129/65 (86) 96 02/16/18 04:00 84 02/16/18 04:00 35 02/16/18 02:00 88 02/16/18 00:00 35 02/16/18 00:00 86 02/16/18 00:00 99.7 86 18 125/61 (82) 96 02/15/18 23:25 97 35 02/15/18 22:00 86 02/15/18 20:00 35 02/15/18 20:00 97.7 82 18 116/59 (78) 97 02/15/18 20:00 82 02/15/18 19:34 97 35 02/15/18 19:00 97 Mechanical Ventilator 35 02/15/18 18:00 80 02/15/18 16:00 80 02/15/18 16:00 35 02/15/18 16:00 97.6 80 18 98/53 (68) 98 02/15/18 14:46 98 35 02/15/18 14:00 78 02/15/18 12:00 98.8 87 18 119/61 (80) 97 02/15/18 12:00 87 02/15/18 12:00 35 02/15/18 11:32 97 35 . Laboratory Tests Test 02/15/18 03:22 02/16/18 04:03 White Blood Count 9.5 TH/MM3 9.1 TH/MM3 Red Blood Count 4.16 MIL/MM3 4.22 MIL/MM3 Hemoglobin 11.4 GM/DL 11.7 GM/DL Hematocrit 33.9 % 34.8 % Mean Corpuscular Volume 81.5 FL 82.4 FL Mean Corpuscular Hemoglobin 27.5 PG 27.7 PG Mean Corpuscular Hemoglobin Concent 33.7 % 33.6 % Red Cell Distribution Width 17.5 % 17.5 % Platelet Count 115 TH/MM3 120 TH/MM3 Mean Platelet Volume 10.0 FL 9.9 FL CBC Comment AUTO DIFF Differential Total Cells Counted 100 Neutrophils % (Manual) 67 % Band Neutrophils % 6 % Lymphocytes % 11 % Monocytes % 11 % Eosinophils % 4 % Basophils % 1 % Neutrophils # (Manual) 6.6 TH/MM3 Differential Comment FINAL DIFF MANUAL Platelet Estimate LOW Platelet Morphology Comment NORMAL Laboratory Tests Test 02/14/18 11:08 02/14/18 16:17 02/15/18 03:22 02/16/18 04:03 Total Creatine Kinase 2310 U/L 1902 U/L Creatine Kinase MB 4.2 NG/ML 3.5 NG/ML Creatine Kinase MB % 0.2 % 0.2 % Blood Urea Nitrogen 46 MG/DL 59 MG/DL Creatinine 2.30 MG/DL 4.14 MG/DL Random Glucose 284 MG/DL 300 MG/DL Total Protein 6.4 GM/DL 6.5 GM/DL Albumin 2.4 GM/DL 2.0 GM/DL Calcium Level 7.6 MG/DL 7.5 MG/DL Alkaline Phosphatase 86 U/L 175 U/L Aspartate Amino Transf (AST/SGOT) 117 U/L 135 U/L Alanine Aminotransferase (ALT/SGPT) 104 U/L 174 U/L Total Bilirubin 0.9 MG/DL 2.1 MG/DL Sodium Level 134 MEQ/L 134 MEQ/L Potassium Level 4.2 MEQ/L 4.6 MEQ/L Chloride Level 95 MEQ/L 91 MEQ/L Carbon Dioxide Level 28.9 MEQ/L 30.4 MEQ/L Anion Gap 10 MEQ/L 13 MEQ/L Estimat Glomerular Filtration Rate 29 ML/MIN 15 ML/MIN Test 02/16/18 06:40 B-Type Natriuretic Peptide 201 PG/ML Microbiology Date/Time Source Procedure Growth Status 02/15/18 09:00 Blood Peripheral Aerobic Blood Culture - Preliminary Gram Positive Cocci Resulted 02/15/18 09:00 Blood Peripheral Anaerobic Blood Culture Pending Resulted 02/15/18 08:55 Blood Peripheral Aerobic Blood Culture Pending Received 02/15/18 08:55 Blood Peripheral Anaerobic Blood Culture Pending Received 02/13/18 13:20 Blood Peripheral Aerobic Blood Culture - Final Staphylococcus Aureus Resulted 02/13/18 13:20 Blood Peripheral Anaerobic Blood Culture - Preliminary NO GROWTH IN 2 DAYS Resulted 02/13/18 13:15 Blood Peripheral Aerobic Blood Culture - Final Staphylococcus Aureus Resulted 02/13/18 13:15 Blood Peripheral Anaerobic Blood Culture - Preliminary NO GROWTH IN 2 DAYS Resulted 02/15/18 07:52 Sputum Endotracheal Gram Stain - Final Resulted 02/15/18 07:52 Sputum Endotracheal Sputum Culture Pending Resulted 02/15/18 07:52 Urine Catheterized Urine Urine Culture Pending Received Imaging Last Impressions Foot X-Ray 02/13/18 0000 Signed Impressions: CONCLUSION: 1. There is a transverse fracture through the mid fifth metatarsal. Adjacent p eriosteal reaction is present suggesting that it is subacute or chronic. 2. There has been prior arthrodesis of the subtalar joint and tibiotalar joint s with osseous fusion. Hypertrophic osteophytes are present at the talonavicula r joint. Chest X-Ray 5/31/18 0000 Signed Impressions: CONCLUSION: Endotracheal tube in good position. Abdomen X-Ray 02/13/18 Signed Impressions: CONCLUSION: 1. Prominent gaseous distention of the stomach. Patient may benefit from gastr ic decompression. 2. No significant dilatation of the bowel at this time. Head CT 02/12/18 Signed Impressions: CONCLUSION: Chronic small vessel ischemic and atrophic changes. Cervical Spine CT 02/12/18 Signed Impressions: CONCLUSION: Unremarkable study except for slight degenerative spondylosis. CT Angiography 02/12/18 Signed Impressions: CONCLUSION: 1. Possible nodules within the thyroid gland mainly on the right side. 2. Slight fatty liver. 3. No definite pulmonary embolus. Abdomen/Pelvis CT 02/12/18 Signed Impressions: CONCLUSION: 1. Slight fatty liver. 2. Probable left adrenal adenoma. Physical Exam CONSTITUTIONAL/GENERAL: This is a morbidly obese patient, intubated TUBES/LINES/DRAINS: SKIN: No jaundice, rashes, or lesions. Skin temperature appropriate. HEAD: Atraumatic. Normocephalic. EYES: Pupils equal and round and reactive. No scleral icterus. No injection or drainage. Fundi not examined. ENT: Intubated. NECK: Trachea midline. Supple, nontender. No palpable thyroid enlargement or nodularity. CARDIOVASCULAR: HS audible. RESPIRATORY/CHEST: Symmetric, unlabored respirations. Clear to auscultation. Breath sounds equal bilaterally. No wheezes, rales, or rhonchi. GASTROINTESTINAL: Abdomen soft, non-tender, mildly distended. Obese. GENITOURINARY: Without palpable bladder distension. Charlton catheter in place with clear yellow urine 50 cc. MUSCULOSKELETAL: Extremities without clubbing, cyanosis, or edema. Bilateral LE erythema with induration noted. + chronic edema present NEUROLOGICAL: sedated. On vent PSYCHIATRIC:unable to assess Assessment & Plan Remarks Severe Sepsis present on admission Probable Mitral valve endocarditis. MSSA high grade bacteremia. Bilateral LE cellulitis. Ho Rt foot hardware infection foot films reviewed acute metabolic encephalopathy:sepsis, metabolic. acute resp failure on vent. acute renal failure oliguric: sepsis, meds oxacillin, vanco etc. May end up needing HD. CAD s/p CABG Recs: DC Oxacillin ? AIN. 10 L fluid excess so far. Start Ancef IV q8hrs equivalent. renal dose adjustment per pharmacy. Notified Pharmacist Marshall of low urine output. Start Teflaro IV (2nd agent pending sterilization of blood cultures may be DCed once sterilization of cultures achieved) Cannot use Rifampin due to elevated LFTs Cannot use Genta due to worsening renal function. Consult nephrology oliguric renal failure. Will dw to [facility] to assess if hardware can be assessed using Bone scan plus MRI or WBC scan MRI C and L spine non contrast will defer to . Change PIVs if possible could be source of ongoing bacteremia. Source control needs to be achieved ex: infected hardware in foot etc. Needs reevaluation in view of severe infection. Critical thinking and decision making. MAR reviewed, meds changed, called pharmacist. [facility] MD and RN. Reviewed imaging and compared. to resume care in am Ebonie Zuniga MD Feb 16, 2018 10:49
[2018-02-16] MEDS ORDERED: ceFAZolin 2 GM PREMIX 50 ML IV SCH (11:00)
--- NOTE | 2018-02-16 11:31 | ECHRPT ---
Indication: POSS SEPSIS, ENDOCARDITIS CONCLUSIONS Normal left ventricular size. Mild concentric left ventricular hypertrophy. The left ventricular systolic function is normal with an estimated ejection fraction in the range of 55-60%. No regional wall motion abnormalities are present. Doppler parameters are consistent with impaired left ventricular relaxtion (grade 1 diastolic dysfun ction). Normal right ventricular size and systolic function. The right atrial size is mildly dilated. Increased atrial septal thickness. The interatrial septum bowed from right to left, consistent with increased right atrial pressure. No atrial level shunt is demonstrated by color flow Doppler or agitated saline imaging. Mild thickening of the mitral valve leaflets. Mild mitral valve regurgitation. The mitral valve regurgitation jet is directed anteriorly. No mitral valve stenosis. Small mobile echodensity is noted on the subvalvular appartatus of the posterior mitral valve leafle t. Differential diagnosis includes small vegetation, sclerosis, or partial chordae tendineae rupture. Structurally normal tricuspid valve. There is trace tricuspid valve regurgitation. Normal estimated pulmonary pressures. BP: 125 / 65 HR: 114 Rhythm: Technical Quality: Medications Complications Proc. Components The patient was brought to the diagnostic imaging area in a fasting state after o btaining an informed consent. The patient was premedicated with IV Versed and IV Fentanyl. The manager hotel ior pharynx was sprayed with Cetacaine spray and the patient was administered viscous Xylocaine 2 %. The STEF probe was passed into the posterior pharynx , mid-esophagus, distal esophagus, and gastric fundus. STEF was performed at multiple levels. The patient tolerated the procedure well and there were no complications. The patient was transferred to the floor in satisfactory condition.. FINDINGS LEFT VENTRICLE Normal left ventricular size. Mild concentric left ventricular hypertrophy. The left ventricular systolic function is normal with an estimated ejection fraction in the range of 55-60%. No regional wall motion abnormalities are present. Doppler parameters are consistent with impaired left ventricular relaxtion (grade 1 diastolic dysfun ction). RIGHT VENTRICLE Normal right ventricular size and systolic function. LEFT ATRIUM The left atrial size is normal. RIGHT ATRIUM The right atrial size is mildly dilated. ATRIAL APPENDAGES Normal left atrial appendage size with no evidence of thrombus formation. ATRIAL SEPTUM Increased atrial septal thickness. The interatrial septum bowed from right to left, consistent with increased right atrial pressure. No atrial level shunt is demonstrated by color flow Doppler or agitated saline imaging. AORTA The aortic root and proximal ascending aorta are not well visualized. The aortic root and proximal ascending aorta are normal in size on limited imaging. MITRAL VALVE Mild thickening of the mitral valve leaflets. Mild mitral valve regurgitation. The mitral valve regurgitation jet is directed anteriorly. No mitral valve stenosis. Small mobile echodensity is noted on the subvalvular appartatus of the posterior mitral valve leafle t. Differential diagnosis includes small vegetation, sclerosis, or partial chordae tendineae rupture. AORTIC VALVE Trileaflet aortic valve. Aortic valve sclerosis is present. No aortic valve regurgitation. TRICUSPID VALVE Structurally normal tricuspid valve. There is trace tricuspid valve regurgitation. Normal estimated pulmonary pressures. VESSELS The inferior vena cava is normal in size. PULMONARY VALVE The pulmonary valve is not well visualized. PERICADIUM No pericardial effusion. Eber Francisco MD, FACC (Electronically Signed) Final Date:16 February 2018 11:31
[2018-02-16] MEDS: ceFAZolin 2 GM/DEX PREMIX 50 ML IV SCH (12:31)
[2018-02-16] MEDS: CEFTAROLINE INJ 300 MG in SODIUM CHLORIDE 0.9% INJ 100 ML IV SCH ×2 (12:41→20:25)
--- NOTE | 2018-02-16 13:01 | PD.CONS ---
HPI Service Nephrology Consult Requested By Dr. Zuniga Reason for Consult ARF Primary Care Physician Non-Staff History of Present Illness The patient is a 62 yo [place] male with PMHx of DM, CAD, CVA, BPH, HTN, Colon CA, Anemia, GERD, who was brought into this facility on 02/12/18 after brother found him down on the ground at his home for >18hrs. Unclear if he had lost consciousness or the mechanism of his fall as the patient is currently intubated and sedated. Has been diagnosed with MSSA sepsis, but source is not entirely clear. Has hardware in his right ankle but podiatry does not feel that this is the source. Underwent STEF this AM and cardiology is suspicious for mitral valve vegetation, however, formal report is pending. His admitting SCr was 1.32 and has deteriorated to 4.14 at time of consult. He is 10L to the positive and UOP is marginal. Nephrology has been consulted for management of acute renal failure. Appears preserved renal functions predating this admission, with baseline SCr 0.6-0.8 as per Oct 2017 admission. Has 2 sisters present in room on examination who states they do no believe he had underlying CKD prior to this. (Katherine Penaloza) Review of Systems ROS Limitations: Clinical Condition, Intubated (Katherine Penaloza) Past Family Social History Allergies: Coded Allergies: No Known Allergies (Unverified , 10/21/17) Past Medical History CAD HTN DM BPH Colon CA s/p partial colectomy Anemia GERD Past Surgical History Partial colectomy R ankle surgery Reported Medications Ferosul (Ferrous Sulfate) 325 Mg (65 Mg Iron) Tablet 325 Mg PO DAILY 30 Days Pantoprazole (Pantoprazole Sodium) 40 Mg Tab 40 Mg PO Q12HR 30 Days Carafate (Sucralfate) 1 Gram Tab 1 Gm PO BIDAC 30 Days Isosorbide Mononitrate ER (Isosorbide Mononitrate) 60 Mg Tab 120 Mg PO DAILY@07 30 Days Fish Oil + D3 (Fish Oil-Cholecalciferol) 1,200-1,000 Mg-Unit Cap 2 Cap PO BID Tamsulosin (Tamsulosin HCl) 0.4 Mg Cap 0.4 Mg HS Centrum (Multiple Vitamins W/ Minerals) 1 Chew 1 Tab CHEW DAILY Colace (Docusate Sodium) 100 Mg Capsule 1 Caplet PO DAILY Diphenhydramine (Diphenhydramine HCl) 25 Mg Cap 50 Mg PO Q12H PRN Ecotrin Low Strength (Aspirin) 81 Mg Tabdr 81 Mg PO DAILY Simvastatin 20 Mg Tab 20 Mg PO DAILY Januvia (Sitagliptin Phosphate) 50 Mg Tab 50 Mg PO DAILY Losartan (Losartan Potassium) 25 Mg Tab 25 Mg PO DAILY Glipizide 5 Mg Tab 5 Mg PO BID Metformin (Metformin HCl) 500 Mg Tab 500 Mg PO BID Active Ordered Medications Current Medications Medications (Trade) Dose Ordered Sig/Ada Route Start Time Stop Time Status Last Admin (NS Flush) 2 ml UNSCH PRN IV FLUSH 02/12/18 21:45 02/12/18 21:58 (Duoneb Neb) 1 ampule Q2HR NEB PRN INH 02/13/18 00:00 02/13/18 11:38 (Protonix Inj) 40 mg DAILY IV PUSH 02/13/18 09:00 02/16/18 07:51 ([facility] Nursing Information) 1 Q361D XX 02/13/18 00:00 (Chlorhexidine 2% Cloth) 3 pack Taper DAILY@04 TOP 02/13/18 04:00 02/09/19 03:59 02/16/18 04:00 (Chlorhexidine 2% Cloth) 3 pack UNSCH PRN TOP 02/13/18 00:00 (Heparin Inj) 5,000 units Q8HR SQ 02/13/18 06:00 02/16/18 04:57 (Roxicodone) 5 mg Q4H PRN PO 02/13/18 09:00 (Dilaudid Pf Inj) 0.2 mg Q4H PRN IV PUSH 02/13/18 09:00 02/13/18 09:52 (Tylenol) 650 mg Q4H PRN PO 02/13/18 10:45 02/14/18 19:23 (Trandate Inj) 20 mg Q2H PRN IV PUSH 02/13/18 11:00 02/13/18 17:49 (Mucinex Er) 600 mg BID PO 02/13/18 11:00 02/16/18 07:51 (Cepacol Extra Sia (Sugar Free)) 1 lozenge Q1H PRN BUCCAL 02/13/18 11:00 02/13/18 11:03 (Duoneb Neb) 1 ampule Q4HR NEB INH 02/13/18 12:00 02/16/18 11:03 (NovoLOG SUPPLEMENTAL SCALE) 1 Q6HR SQ 02/13/18 12:15 02/16/18 04:58 (D50w (Syr) Inj) 50 ml UNSCH PRN IV PUSH 02/13/18 12:15 (Glucagon Inj) 1 mg UNSCH PRN OTHER 02/13/18 12:15 Propofol 100 ml @ 3.66 mls/hr TITRATE PRN IV 02/13/18 19:45 02/16/18 09:56 (Peridex 0.12% Liq) 15 ml BID@08,20 MT 02/14/18 08:00 02/16/18 07:52 Fentanyl Citrate 250 ml @ 5 mls/hr TITRATE PRN IV 02/13/18 21:15 02/16/18 05:39 Ceftaroline Fosamil 300 mg/ Sodium Chloride 100 ml @ 100 mls/hr Q8H IV 02/16/18 12:00 Cefazolin Sodium/ Dextrose 50 ml @ 100 mls/hr Q12H IV 02/16/18 13:00 Family History NC Social History Single Lives in [place] Has 8 brothers and sisters [facility] Nurse who visits him daily (Helena Saavedra @ [phone]) Previous smoker, but not for many years No EtOH or illicits as per family (Katherine Penaloza) Physical Exam Vital Signs Vital Signs Date Time Temp Pulse Resp B/P (MAP) Pulse Ox O2 Delivery O2 Flow Rate FiO2 02/16/18 09:34 96 35 02/16/18 08:00 90 02/16/18 08:00 99.0 90 18 122/63 (82) 96 02/16/18 08:00 35 02/16/18 07:03 96 35 02/16/18 07:00 96 Mechanical Ventilator 35 02/16/18 06:00 86 02/16/18 04:23 97 35 02/16/18 04:00 97.7 84 18 129/65 (86) 96 02/16/18 04:00 84 02/16/18 04:00 35 02/16/18 02:00 88 02/16/18 00:00 35 02/16/18 00:00 86 02/16/18 00:00 99.7 86 18 125/61 (82) 96 02/15/18 23:25 97 35 02/15/18 22:00 86 02/15/18 20:00 35 02/15/18 20:00 97.7 82 18 116/59 (78) 97 02/15/18 20:00 82 02/15/18 19:34 97 35 02/15/18 19:00 97 Mechanical Ventilator 35 02/15/18 18:00 80 02/15/18 16:00 80 02/15/18 16:00 35 02/15/18 16:00 97.6 80 18 98/53 (68) 98 02/15/18 14:46 98 35 02/15/18 14:00 78 Physical Exam GENERAL: Intubated and sedated SKIN: Warm and dry. HEAD: Atraumatic. Normocephalic. EYES: Pupils equal and round. No scleral icterus. No injection or drainage. ENT: No nasal bleeding or discharge. Mucous membranes pink and moist. NECK: Trachea midline. No JVD. CARDIOVASCULAR: Regular rate and rhythm. RESPIRATORY: No accessory muscle use. Clear to auscultation. Breath sounds equal bilaterally. GASTROINTESTINAL: Abdomen soft, non-tender, nondistended. Hepatic and splenic margins not palpable. MUSCULOSKELETAL: Extremities without clubbing, cyanosis, generalized edema. BLE skin is erythematous NEUROLOGICAL: Intubated and sedated PSYCHIATRIC: Intubated and sedated Laboratory Laboratory Tests Test 02/16/18 04:03 02/16/18 06:40 White Blood Count 9.1 Red Blood Count 4.22 Hemoglobin 11.7 Hematocrit 34.8 Mean Corpuscular Volume 82.4 Mean Corpuscular Hemoglobin 27.7 Mean Corpuscular Hemoglobin Concent 33.6 Red Cell Distribution Width 17.5 Platelet Count 120 Mean Platelet Volume 9.9 CBC Comment AUTO DIFF Differential Total Cells Counted 100 Neutrophils % (Manual) 67 Band Neutrophils % 6 Lymphocytes % 11 Monocytes % 11 Eosinophils % 4 Basophils % 1 Neutrophils # (Manual) 6.6 Differential Comment FINAL DIFF MANUAL Platelet Estimate LOW Platelet Morphology Comment NORMAL Blood Urea Nitrogen 59 Creatinine 4.14 Random Glucose 300 Total Protein 6.5 Albumin 2.0 Calcium Level 7.5 Alkaline Phosphatase 175 Aspartate Amino Transf (AST/SGOT) 135 Alanine Aminotransferase (ALT/SGPT) 174 Total Bilirubin 2.1 Sodium Level 134 Potassium Level 4.6 Chloride Level 91 Carbon Dioxide Level 30.4 Anion Gap 13 Estimat Glomerular Filtration Rate 15 B-Type Natriuretic Peptide 201 Date/Time Source Procedure Growth Status 02/15/18 09:00 Blood Peripheral Aerobic Blood Culture - Preliminary Gram Positive Cocci Resulted 02/15/18 09:00 Blood Peripheral Anaerobic Blood Culture - Preliminary NO GROWTH IN 1 DAY Resulted 02/15/18 07:52 Sputum Endotracheal Gram Stain - Final Resulted 02/15/18 07:52 Sputum Endotracheal Sputum Culture Pending Resulted 02/15/18 07:52 Urine Catheterized Urine Urine Culture - Preliminary NO GROWTH IN 24 HOURS. Resulted (Katherine Penaloza) Result Diagram: 02/16/18 0403 02/16/18 0403 Imaging Last Impressions Chest X-Ray 02/16/18 0600 Signed Impressions: CONCLUSION: Cardiomegaly. Foot MRI 02/14/18 Signed Impressions: CONCLUSION: 1. Diffuse subcutaneous edema of the foot with mild enhancement along the dors al aspect of the foot. This could represent cellulitis. No abscess is identifie d and there are no findings to indicate osteomyelitis. 2. There is some degree of osseous fusion at the tibiotalar joint and there is severe degenerative change at the subtalar joint and talonavicular joint. 3. Old healed fracture of the fifth metatarsal. Foot X-Ray 02/13/18 Signed Impressions: CONCLUSION: 1. There is a transverse fracture through the mid fifth metatarsal. Adjacent p eriosteal reaction is present suggesting that it is subacute or chronic. 2. There has been prior arthrodesis of the subtalar joint and tibiotalar joint s with osseous fusion. Hypertrophic osteophytes are present at the talonavicula r joint. Abdomen X-Ray 02/13/18 Signed Impressions: CONCLUSION: 1. Prominent gaseous distention of the stomach. Patient may benefit from gastr ic decompression. 2. No significant dilatation of the bowel at this time. Head CT 02/12/18 Signed Impressions: CONCLUSION: Chronic small vessel ischemic and atrophic changes. Cervical Spine CT 02/12/18 Signed Impressions: CONCLUSION: Unremarkable study except for slight degenerative spondylosis. CT Angiography 02/12/18 Signed Impressions: CONCLUSION: 1. Possible nodules within the thyroid gland mainly on the right side. 2. Slight fatty liver. 3. No definite pulmonary embolus. Abdomen/Pelvis CT 02/12/18 0000 Signed Impressions: CONCLUSION: 1. Slight fatty liver. 2. Probable left adrenal adenoma. (Katherine Penaloza) Assessment and Plan Problem List: (1) Acute renal failure ICD Codes: N17.9 - Acute kidney failure, unspecified Plan: Etiology multifactorial: elevated CPK indicating rhabdomyolysis, sepsis , medication exposure (Vancomycin, Oxacillin), contrast exposure (Gadolinium 02/14 , iodinated 02/12 x2). Unfortunately, his renal functions are deteriorating and UOP decreased. He is > 10L positive balance in the past 48h. Discussed with the family that we will likely have to discuss dialytic intervention within the next 24-48h. We discussed potential risks and benefits of proceeding and both sisters that were present were in verbal agreement to proceed if indicated. Will have to clarify who is the medical decision maker with CM. Metabolically, there is no urgency today. Will attempt to diureses today with monitoring of renal functions as well as UOP. Medications should be adjusted for the patient's renal decline. Avoid nephrotoxic medications such as iodinated contrast dyes and NSAIDs. Avoid gadolinium. (2) Sepsis ICD Codes: A41.9 - Sepsis, unspecified organism Status: Acute Plan: Source? Pending STEF results Abx as per ID (3) Rhabdomyolysis ICD Codes: M62.82 - Rhabdomyolysis Status: Acute Plan: Apparent given elevated CPK and urinary sediment. CPK trending down. Continue to monitor. (4) Transaminitis ICD Codes: R74.0 - Nonspecific elevation of levels of transaminase and lactic acid dehydrogenase [LDH] (5) Adrenal nodule ICD Codes: E27.9 - Disorder of adrenal gland, unspecified Plan: Incidentally noted on CT scan. Not pertinent to his admission, but should be followed up on as outpatient (Katherine Penaloza) Assessment and Plan Patient was seen and examined and I discussed the situation with his sisters who were by the bedside. Most likely we will need to consider renal replacement therapy i.e. dialysis within the next 24-48 hours depending upon patient's progression. Pathogenesis of his renal insufficiency as well as prognosis for recovery probable need for dialysis discussed with them in detail and at length including indications for dialysis, alternatives and risks of dialysis including but not limited to hypotension, arrhythmia, . They indicated they would be agreeable to proceed with dialytic support if deemed indicated. The exam, history, and the medical decision-making described in the above note were completed with the assistance of the HOME. I reviewed and agree with the findings presented. I attest that I had a [id number] encounter with the patient on the same day, and personally performed and documented my assessment and findings in the medical record. (Jeffy Brewer MD) Problem Qualifiers (1) Rhabdomyolysis: Qualified Codes: T79.6XXA - Traumatic ischemia of muscle, initial encounter Katherine Penaloza Feb 16, 2018 13:01 Jeffy Brewer MD Feb 16, 2018 16:49
[2018-02-16] MEDS ORDERED: FUROSEMIDE 40 MG/4 ML VIAL IV PUSH ONE (15:00)
[2018-02-16 16:52] LABS: COMPLEMENT C4 40 MG/DL (10-40)
[2018-02-16 16:55] LABS: FERRITIN 659 NG/ML (26-388)
[2018-02-16 17:00] LABS: % SATURATION IRON PROFILE 17.7 % (20-50); IRON (FE) 36 MCG/DL (65-175); MAGNESIUM 2.4 MG/DL (1.5-2.5); PHOSPHORUS 5.8 MG/DL (2.5-4.9); TOTAL IRON BINDING CAPACITY 203 MCG/DL (250-450)
[2018-02-17] VITALS (20 sets, daily range): BP systolic 112–179; BP diastolic 59–81; PULSE 73–81; RESP 18; TEMP 98.4–99.1; O2SAT 95–100
[2018-02-17] MEDS: RESP: ALBUTEROL 2.5 MG/IPRATROPIUM 0.5 MG NEB (SCH) INH ×4 (00:18→10:54)
[2018-02-17] MEDS: ceFAZolin 2 GM/DEX PREMIX 50 ML IV SCH ×2 (01:58→13:41)
[2018-02-17] MEDS: CHLORHEXIDINE GLUCONATE 2 % 1 PACK (2 CLOTHS) TOP SCH (03:24)
[2018-02-17] MEDS: CEFTAROLINE INJ 300 MG in SODIUM CHLORIDE 0.9% INJ 100 ML IV SCH ×3 (03:53→21:07)
[2018-02-17] MEDS: PROPOFOL 1000 MG/100 ML INJ 100 ML IV PRN ×6 (03:53→21:08)
[2018-02-17] MEDS: INSULIN ASPART SUPPLEMENTAL SCALE SQ SCH ×3 (06:00→17:13)
[2018-02-17] MEDS: HEPARIN SODIUM - SQ 10,000 UNITS/ML VIAL SQ SCH ×3 (06:25→21:08)
[2018-02-17] MEDS ORDERED: FUROSEMIDE 40 MG/4 ML VIAL IV PUSH ONE (07:00)
--- NOTE | 2018-02-17 07:04 | HHI.CCPN ---
Subjective Remarks/Hospital Course Hospital Course: This is a 62yM with history of prior stroke, DM, CAD who presents after his brother found him after he fell. He states he was on the floor for > 18 hours. He endorses a week of fatigue, fever, chills. denies any other symptoms. denies chest pain, shortness of breath, nausea, vomiting, constipation, diarrhea. does endorse generalized abdominal pain which is mild. in the ER he was tachycardic and very diaphoretic. he has laboratory evidence of CK 7000, wbc 17k, Cr 1.3, trop 0.8. CT chest/abd/pelvis unremarkable. CT head and c-spine negative for trauma. febrile to 103 in the ER. given 2L NS ivf with improvement in his HR. remainder of ROS negative. 02/13: somewhat improved, feeling slightly better. remains febrile. cultures still pending. repeat lactate pending. HR improving. 02/14: Patient had episodes of temperatures of 103 with diaphoresis tachypnea yesterday. Blood cultures growing staph aureus 4 out of 4. Evaluated by ANGI Otero yesterday. Respiratory status declined overnight and patient was intubated and placed on mechanical ventilation. Currently remains sedated, orally intubated on mechanical ventilation. 02/15: Remains sedated, orally intubated on mechanical ventilation. Cardiology consulted by Dr. Otero to evaluate for STEF for persistent MSSA bacteremia. 02/16: remains very critically ill. persistent + blood cultures for MSSA. STEF still pending. Cr doubled overnight again despite +10L in last 48h. no improvement at all, and all organ systems are worse. no implantable devices. central lines were placed on admission. 02/17 Patient remains sedated with Diprivan and Fentanyl drip. Afebrile. Objective Vital Signs Date Time Temp Pulse Resp B/P (MAP) Pulse Ox O2 Delivery O2 Flow Rate FiO2 02/17/18 06:00 73 02/17/18 04:00 35 02/17/18 04:00 98.6 18 112/59 (76) 97 02/16/18 19:00 Mechanical Ventilator 02/13/18 19:55 6.00 Intake and Output 02/17/18 02/17/18 02/18/18 08:00 16:00 00:00 Intake Total 846.9 ml Output Total 100 ml Balance 746.9 ml Result Diagram: 02/16/18 0403 02/16/18 0403 Other Results Laboratory Tests Test 02/16/18 15:59 Phosphorus Level 5.8 MG/DL Magnesium Level 2.4 MG/DL Iron Level 36 MCG/DL Total Iron Binding Capacity 203 MCG/DL Percent Iron Saturation 17.7 % Ferritin 659 NG/ML 25-Hydroxy Vitamin D Total 21.7 ng/ML Parathyroid Hormone (Intact) 163.1 PG/ML Complement C3 125 MG/DL Complement C4 40 MG/DL Hepatitis B Surface Antigen NONREACTIVE Hepatitis C IgG Antibody NONREACTIVE Imaging Last Impressions Chest X-Ray 02/16/18 0600 Signed Impressions: CONCLUSION: Cardiomegaly. Foot MRI 02/14/18 Signed Impressions: CONCLUSION: 1. Diffuse subcutaneous edema of the foot with mild enhancement along the dors al aspect of the foot. This could represent cellulitis. No abscess is identifie d and there are no findings to indicate osteomyelitis. 2. There is some degree of osseous fusion at the tibiotalar joint and there is severe degenerative change at the subtalar joint and talonavicular joint. 3. Old healed fracture of the fifth metatarsal. Foot X-Ray 02/13/18 Signed Impressions: CONCLUSION: 1. There is a transverse fracture through the mid fifth metatarsal. Adjacent p eriosteal reaction is present suggesting that it is subacute or chronic. 2. There has been prior arthrodesis of the subtalar joint and tibiotalar joint s with osseous fusion. Hypertrophic osteophytes are present at the talonavicula r joint. Abdomen X-Ray 02/13/18 Signed Impressions: CONCLUSION: 1. Prominent gaseous distention of the stomach. Patient may benefit from gastr ic decompression. 2. No significant dilatation of the bowel at this time. Head CT 02/12/18 Signed Impressions: CONCLUSION: Chronic small vessel ischemic and atrophic changes. Cervical Spine CT 02/12/18 Signed Impressions: CONCLUSION: Unremarkable study except for slight degenerative spondylosis. CT Angiography 02/12/18 Signed Impressions: CONCLUSION: 1. Possible nodules within the thyroid gland mainly on the right side. 2. Slight fatty liver. 3. No definite pulmonary embolus. Abdomen/Pelvis CT 02/12/18 Signed Impressions: CONCLUSION: 1. Slight fatty liver. 2. Probable left adrenal adenoma. Objective Remarks GENERAL: Patient is 62 yo intubated and sedated SKIN: Warm and dry. HEAD: Normocephalic. EYES: No scleral icterus. No injection or drainage. NECK: Supple, trachea midline. No JVD or lymphadenopathy. CARDIOVASCULAR: Regular rate and rhythm without murmurs, gallops, or rubs. RESPIRATORY: Breath sounds equal bilaterally. No accessory muscle use. GASTROINTESTINAL: Abdomen soft, non-tender, nondistended. MUSCULOSKELETAL: No cyanosis, or edema. Neuro: Intubated. A/P Assessment and Plan Assessment: 62yM with rhabdomyolysis and severe sepsis with MSSA bacteremia. clearly infected with fever, leukocytosis, tachycardia, and end-organ dysfunction from his sepsis. continue abx. will obtain STEF today. unclear volume status, but likely starting to be volume overloaded which is not helping kidney injury and respiratory failure, both of which are worse today. remains critically ill with organ failure deteriorating and actively worsening. Neuro: On Diprivan and Fentnayl infusion for sedation. Daily sedation vacation Monitor neuro status. CT brain 02/12: Chronic small vesssel ischemic changes Pulm: VDRF Continue with vent support keep sats >92% Bronchodilators, ICU vent bundle. SBT daily as sahara CV: Type II NSTEMI, Elevated troponin, likely secondary to demand ischemia - CT pulmonary angiogram negative for PE. Monitor HR and BP keep MAP>65mmHg Lactic acid 2.8 on 02/13 STEF 02/16: EF 55-60%, grade I diastolic dysfunction. Small mobile echodensity is noted on the subvalvular apparatus of the posterior mitral valve leaflet. ?small vegetation, sclerosis, or partial chordae tendineae rupture. Cards signed off : ARF Rhabdo Monitor renal function, I/O's, avoid nephrotoxins Follow up CMP, UOP:150ml in 24 hrs Diurese with Lasix 40mg x1, Renal is following. Dr. Brewer GI: Elevated LFT's Change tube feeds- Nepro with goal rate 40ml/hr On Protonix 40mg daily for GI prophylaxis Monitor LFT's, CT abd/pelvis 02/12: Slight fatty liver Check US liver, Hep B,C non reactive ID Staph bacteremia - source LE cellulitis? - MRI bilateral feet: negative for osteo - podiatry consult -ID consult Dr. Otero -Continue abx per ID (Ancef, Teflaro) justin for isgns of infections ( Fever, WBC) Check BC x2 sets today - blood cultures: 02/12: 12/18 bottles MSSA 02/13: 10/20 bottles MSSA 02/15: 09/19 bottles MSSA - sputum culture: NGTD Heme: Anemia Thrombocytopenia Monitor CBC Endo: Hyperglycemia Diabetes Mellitus, type 2 - SSI med scale, q6h Prophylaxis SCDs SQH Protonix Critical care time: 30 minutes, exclusive of separately billable procedures. Apolinar Munson MD Feb 17, 2018 07:04
[2018-02-17 07:19] LABS: AUTOMATED NEUTROPHIL # 7.2 TH/MM3 (1.8-7.7); BASOPHIL % 0.5 % (0.0-2.0); EOSINOPHIL # 0.3 TH/MM3 (0-0.4); EOSINOPHIL % 3.1 % (0.0-4.0); HEMATOCRIT 32.8 % (39.0-51.0); LYMPH % 10.5 % (9.0-44.0); MEAN CORPUSCULAR HEMOGLOBIN 27.3 PG (27.0-34.0); MEAN CORPUSCULAR HGB CONC 33.6 % (32.0-36.0); MEAN PLATELET VOLUME 9.1 FL (7.0-11.0); MONO % 13.9 % (0.0-8.0); MONOCYTE # 1.4 TH/MM3 (0-0.9); PLATELET COUNT 151 TH/MM3 (150-450); RED BLOOD COUNT 4.05 MIL/MM3 (4.50-5.90); RED CELL DISTRIBUTION WIDTH 18.3 % (11.6-17.2)
[2018-02-17 07:51] LABS: ALBUMIN 1.8 GM/DL (3.4-5.0); BICARBONATE 30.2 MEQ/L (21.0-32.0); CALCIUM 7.4 MG/DL (8.5-10.1); CALCIUM-PROTEIN CORRECTED 7.9 MG/DL (8.5-10.1); CREATININE 5.86 MG/DL (0.60-1.30); PHOSPHORUS 6.1 MG/DL (2.5-4.9); TOTAL BILIRUBIN ADULT 2.3 MG/DL (0.2-1.0); TOTAL PROTEIN 6.2 GM/DL (6.4-8.2)
[2018-02-17] MEDS: PANTOPRAZOLE SODIUM 40 MG VIAL IV PUSH SCH (08:33)
[2018-02-17] MEDS: CHLORHEXIDINE 0.12% (ORAL KIT) 15 ML CUP MT SCH (08:34)
[2018-02-17] MEDS: guaiFENesin E.R. 600 MG TAB PO SCH ×2 (08:34→21:08)
[2018-02-17 08:43] LABS: TEARDROP RBCS 1+ (NORMAL)
--- NOTE | 2018-02-17 09:02 | RADRPT ---
EXAM DATE: 02/17/2018 8:25 AM EDT AGE/SEX: 62 years / Male INDICATIONS: Increased lab values. CLINICAL DATA: This is the patient's initial encounter. Patient reports that signs and symptoms have been present for 1 day and indicates a pain score of Nonresponsive. MEDICAL/SURGICAL HISTORY: . Diabetic. CHF. HTN. GERD. Colon cancer. . Colon resection. Bi lateral foot and ankle ORIF. COMPARISON: [facility] [place], CT ABDOMEN & PELVIS W CONTRAST, 02/12/2018. . No external comparison. MEASUREMENTS (cm x cm x cm): Liver:__ 21.4 cm length Common Bile Duct:__ 6mm Right Kidney:__ 13.6 x 7.4 x 7.0 cm FINDINGS: Liver: Coarsened echotexture without a focal lesion identified. Portal Vein: Hepatopedal flow seen in portal vein. Common Duct: No intraluminal mass or stone visualized. Gallbladder: No stones or pericholecystic fluid. Sonographic Puri sign is negative. Gallbladder Wa ll: 3 mm Pancreas: Not well visualized. Right Kidney: No mass or hydronephrosis Other: None. CONCLUSION: 1. Hepatomegaly with coarsened liver echotexture. No focal liver lesion is identified. 2. Mild splenomegaly. Electronically signed by: Gilmar Knox MD 02/17/2018 9:01 AM EDT
[2018-02-17] MEDS: fentaNYL DRIP 250 ML IV PRN ×2 (10:32→18:31)
[2018-02-17] MEDS ORDERED: SODIUM CHLOR 0.9% 1000 ML INJ 1,000 ML OTHER PRN (11:29)
[2018-02-17] MEDS ORDERED: SODIUM CHLOR 0.9% 1000 ML INJ 1,000 ML IV PRN (11:29)
[2018-02-17] MEDS ORDERED: GELATIN 12 MM/7 MM FOAM TOP PRN (11:30)
[2018-02-17] MEDS ORDERED: diphenhydrAMINE HCL 25 MG CAP PO PRN (11:30)
[2018-02-17] MEDS ORDERED: NITROGLYCERIN 0.4 MG SL 25 TABS/BTL SL PRN (11:30)
[2018-02-17] MEDS ORDERED: SODIUM CHLORIDE 0.9% FLUSH 10 ML FLUSH IV FLUSH PRN ×2 (11:30→13:30)
[2018-02-17] MEDS ORDERED: HEPARIN SODIUM - IV 10,000 UNITS/10 ML VIAL IV FLUSH PRN (11:30)
[2018-02-17] MEDS ORDERED: ACETAMINOPHEN 325 MG TAB PO PRN (11:30)
--- NOTE | 2018-02-17 11:38 | HHI.NPPN ---
Subjective History of Present Illness The patient is a 62 yo [place] male with PMHx of DM, CAD, CVA, BPH, HTN, Colon CA, Anemia, GERD, who was brought into this facility on 02/12/18 after brother found him down on the ground at his home for >18hrs. Unclear if he had lost consciousness or the mechanism of his fall as the patient is currently intubated and sedated. Has been diagnosed with MSSA sepsis, but source is not entirely clear. Has hardware in his right ankle but podiatry does not feel that this is the source. Underwent STEF this AM and cardiology is suspicious for mitral valve vegetation, however, formal report is pending. His admitting SCr was 1.32 and has deteriorated to 4.14 at time of consult. He is 10L to the positive and UOP is marginal. Nephrology has been consulted for management of acute renal failure. Appears preserved renal functions predating this admission, with baseline SCr 0.6-0.8 as per Oct 2017 admission. Interval History Patient remaining oliguric and renal indices continued to worsen with evidence of significant fluid retention. Review of Systems General General Remarks Patient intubated on ventilatory support. Objective Data Data 02/17/18 02/18/18 19:00 07:00 Intake Total 141 ml Balance 141 ml IV Total 141 ml Vital Signs Date Time Temp Pulse Resp B/P (MAP) Pulse Ox O2 Delivery O2 Flow Rate FiO2 02/17/18 10:58 98 45 02/17/18 10:00 81 02/17/18 08:00 45 02/17/18 08:00 74 02/17/18 08:00 97 45 02/17/18 08:00 99.1 74 18 131/64 (86) 97 02/17/18 07:00 97 Mechanical Ventilator 45 02/17/18 06:00 73 02/17/18 04:00 35 02/17/18 04:00 73 02/17/18 04:00 98.6 73 18 112/59 (76) 97 02/17/18 03:33 97 45 02/17/18 02:00 78 02/17/18 00:18 98 45 02/17/18 00:00 98.8 81 18 134/64 (87) 97 02/17/18 00:00 35 02/17/18 00:00 81 02/16/18 22:00 82 02/16/18 20:00 83 02/16/18 20:00 97.7 83 18 135/63 (87) 98 02/16/18 20:00 35 02/16/18 19:33 98 45 02/16/18 19:00 98 Mechanical Ventilator 35 02/16/18 18:00 80 02/16/18 16:00 35 02/16/18 16:00 98.8 81 18 127/62 (83) 97 02/16/18 16:00 83 02/16/18 15:58 97 45 02/16/18 14:00 81 02/16/18 13:19 97 35 02/16/18 12:00 80 02/16/18 12:00 99.2 80 18 117/60 (79) 99 02/16/18 12:00 35 -: 02/17/18 0652 02/17/18 0652 Microbiology 02/17/18 Aerobic Blood Culture, Received Pending 02/17/18 Anaerobic Blood Culture, Received Pending 02/17/18 Aerobic Blood Culture, Received Pending 02/17/18 Anaerobic Blood Culture, Received Pending Physical Exam General Appearance: Comfortable, Obese Eyes Eye Exam: Sclera White Neck Neck Exam: Trachea Midline Pulmonary Resp Exam: Clear Bilaterally, Breath Sounds Equal, Decreased Bases Cardiology CV Exam: Regular, Normal Sinus Rhythm Gastrointestinal/Abdomen GI Exam: Soft, Non-Tender Integumentary Skin Exam: Clear, Warm Extremeties Extremities Exam: Moderate Edema, Pitting Edema (Generalized edema.) Assessment/Plan Discussed Condition With: Sibling Problem List: (1) Acute renal failure ICD Codes: N17.9 - Acute kidney failure, unspecified Plan: Etiology multifactorial: elevated CPK indicating rhabdomyolysis, sepsis , contrast exposure (Gadolinium 02/14, iodinated 02/12 x2). Unfortunately renal indices continued to worsen the patient still has evidence of significant fluid overload. In view of the above will proceed with dialytic support as I do not anticipate any improvement in renal function in the near future given severity of injury. Discussed with his siblings and they agree to proceed with Vas-Cath placement and dialytic support. Tentatively dialysis today and tomorrow for fluid management with subsequent dialysis as indicated. Case also discussed with critical care. Total time spent in direct patient care 38 minutes., Medications should be adjusted for the patient's renal decline. Avoid nephrotoxic medications such as iodinated contrast dyes and NSAIDs. Avoid gadolinium. (2) Sepsis ICD Codes: A41.9 - Sepsis, unspecified organism Status: Acute Plan: Source? Pending STEF results Abx as per ID (3) Rhabdomyolysis ICD Codes: M62.82 - Rhabdomyolysis Status: Acute Plan: Apparent given elevated CPK and urinary sediment. CPK trending down. Continue to monitor. (4) Transaminitis ICD Codes: R74.0 - Nonspecific elevation of levels of transaminase and lactic acid dehydrogenase [LDH] (5) Adrenal nodule ICD Codes: E27.9 - Disorder of adrenal gland, unspecified Plan: Incidentally noted on CT scan. Not pertinent to his admission, but should be followed up on as outpatient Problem Qualifiers (1) Rhabdomyolysis: Qualified Codes: T79.6XXA - Traumatic ischemia of muscle, initial encounter Jeffy Brewer MD Feb 17, 2018 11:38
[2018-02-17] MEDS ORDERED: ONDANSETRON ODT 4 MG TAB PO PRN (12:00)
--- NOTE | 2018-02-17 13:20 | PD.RAD ---
Post Procedure Progress Note Pre Procedure Diagnosis: (1) Acute renal failure Post Procedure Diagnosis: (1) Acute renal failure Procedure Date: Feb 17, 2018 Supervising Radiologist: Gus Loyola JR Proceduralist/Assist: Malick Franklin RT(R), RT Deyvi(R) Anesthesia: Local Plan of Activity Patient to Unit: Critical Care Patient Condition: Fair See PACS Report for procedural detail/treatment Central Venous Access Device Procedure 1 Right Internal Jugular Hemodialysis Catheter Non-Tunneled Placement dual lumen Swedish: 14 Findings: Vascath in good position and functions well. OK to use. Jr. Nir,Gus Robert MD Feb 17, 2018 13:20
[2018-02-17] MEDS ORDERED: HEPARIN SODIUM - IV 2,000 UNITS/2 ML VIAL IV FLUSH PRN (13:30)
[2018-02-17] MEDS: GENTAMICIN SULFATE 20 MG/2 ML VIAL OTHER PRN (14:58)
[2018-02-17] MEDS: HEPARIN SODIUM - IV 10,000 UNITS/10 ML VIAL PRN (14:58)
--- NOTE | 2018-02-17 16:22 | HHI.IDPN ---
Subjective Subjective Remarks remains on vent STEF with mitral valve veg'n afebrile more positive blood clx with MSSA Antibiotics Oxacillin Lines PIVs look ok Past Medical History Past Medical History Diabetes Hyperlipidemia Chronic pain syndrome bilateral lower extremity ulcers BPH Hypertension Colon cancer s/p partial colectomy prior NSTEMI severe 2-vessel CAD managed medically old RBBB prior GI bleed anemia secondary to GI bleeding Arthritis CHF, unknown type GERD Past Surgical History partial colectomy skin grafts to right ankle left ankle surgery CABG Allergies: Coded Allergies: No Known Allergies (Unverified , 10/21/17) Objective . Vital Signs Date Time Temp Pulse Resp B/P (MAP) Pulse Ox O2 Delivery O2 Flow Rate FiO2 02/17/18 15:13 97 45 02/17/18 14:00 79 02/17/18 13:35 100 100 02/17/18 12:00 98.4 80 18 148/67 (94) 95 02/17/18 12:00 80 02/17/18 12:00 45 02/17/18 10:58 98 45 02/17/18 10:00 81 02/17/18 08:00 45 02/17/18 08:00 74 02/17/18 08:00 97 45 02/17/18 08:00 99.1 74 18 131/64 (86) 97 02/17/18 07:00 97 Mechanical Ventilator 45 02/17/18 06:00 73 02/17/18 04:00 35 02/17/18 04:00 73 02/17/18 04:00 98.6 73 18 112/59 (76) 97 02/17/18 03:33 97 45 02/17/18 02:00 78 02/17/18 00:18 98 45 02/17/18 00:00 98.8 81 18 134/64 (87) 97 02/17/18 00:00 35 02/17/18 00:00 81 02/16/18 22:00 82 02/16/18 20:00 83 02/16/18 20:00 97.7 83 18 135/63 (87) 98 02/16/18 20:00 35 02/16/18 19:33 98 45 02/16/18 19:00 98 Mechanical Ventilator 35 02/16/18 18:00 80 02/17/18 02/17/18 02/18/18 15:00 23:00 07:00 Intake Total 227 ml Balance 227 ml IV Total 227 ml . Laboratory Tests Test 02/16/18 04:03 02/17/18 06:52 White Blood Count 9.1 TH/MM3 10.0 TH/MM3 Red Blood Count 4.22 MIL/MM3 4.05 MIL/MM3 Hemoglobin 11.7 GM/DL 11.0 GM/DL Hematocrit 34.8 % 32.8 % Mean Corpuscular Volume 82.4 FL 81.0 FL Mean Corpuscular Hemoglobin 27.7 PG 27.3 PG Mean Corpuscular Hemoglobin Concent 33.6 % 33.6 % Red Cell Distribution Width 17.5 % 18.3 % Platelet Count 120 TH/MM3 151 TH/MM3 Mean Platelet Volume 9.9 FL 9.1 FL CBC Comment AUTO DIFF AUTO DIFF Differential Total Cells Counted 100 Neutrophils % (Manual) 67 % Band Neutrophils % 6 % Lymphocytes % 11 % Monocytes % 11 % Eosinophils % 4 % Basophils % 1 % Neutrophils # (Manual) 6.6 TH/MM3 Differential Comment FINAL DIFF MANUAL AUTO DIFF CONFIRMED Platelet Estimate LOW Platelet Morphology Comment NORMAL Neutrophils (%) (Auto) 72.0 % Lymphocytes (%) (Auto) 10.5 % Monocytes (%) (Auto) 13.9 % Eosinophils (%) (Auto) 3.1 % Basophils (%) (Auto) 0.5 % Neutrophils # (Auto) 7.2 TH/MM3 Lymphocytes # (Auto) 1.0 TH/MM3 Monocytes # (Auto) 1.4 TH/MM3 Eosinophils # (Auto) 0.3 TH/MM3 Basophils # (Auto) 0.0 TH/MM3 Tear Drop Cells 1+ Laboratory Tests Test 02/16/18 04:03 02/16/18 06:40 02/16/18 15:59 02/17/18 06:52 Blood Urea Nitrogen 59 MG/DL 71 MG/DL Creatinine 4.14 MG/DL 5.86 MG/DL Random Glucose 300 MG/DL 184 MG/DL Total Protein 6.5 GM/DL 6.2 GM/DL Albumin 2.0 GM/DL 1.8 GM/DL Calcium Level 7.5 MG/DL 7.4 MG/DL Alkaline Phosphatase 175 U/L 159 U/L Aspartate Amino Transf (AST/SGOT) 135 U/L 96 U/L Alanine Aminotransferase (ALT/SGPT) 174 U/L 114 U/L Total Bilirubin 2.1 MG/DL 2.3 MG/DL Sodium Level 134 MEQ/L 132 MEQ/L Potassium Level 4.6 MEQ/L 5.1 MEQ/L Chloride Level 91 MEQ/L 89 MEQ/L Carbon Dioxide Level 30.4 MEQ/L 30.2 MEQ/L Anion Gap 13 MEQ/L 13 MEQ/L Estimat Glomerular Filtration Rate 15 ML/MIN 10 ML/MIN B-Type Natriuretic Peptide 201 PG/ML Phosphorus Level 5.8 MG/DL 6.1 MG/DL Magnesium Level 2.4 MG/DL Iron Level 36 MCG/DL Total Iron Binding Capacity 203 MCG/DL Percent Iron Saturation 17.7 % Ferritin 659 NG/ML 25-Hydroxy Vitamin D Total 21.7 ng/ML Parathyroid Hormone (Intact) 163.1 PG/ML Protein Corrected Calcium 7.9 MG/DL Total Creatine Kinase 604 U/L Creatine Kinase MB 0.8 NG/ML Creatine Kinase MB % 0.1 % Microbiology Date/Time Source Procedure Growth Status 02/17/18 08:55 Blood Peripheral Aerobic Blood Culture Pending Received 02/17/18 08:55 Blood Peripheral Anaerobic Blood Culture Pending Received 02/17/18 08:50 Blood Peripheral Aerobic Blood Culture Pending Received 02/17/18 08:50 Blood Peripheral Anaerobic Blood Culture Pending Received 02/15/18 09:00 Blood Peripheral Aerobic Blood Culture - Preliminary Staphylococcus Aureus Resulted 02/15/18 09:00 Blood Peripheral Anaerobic Blood Culture - Preliminary NO GROWTH IN 2 DAYS Resulted 02/15/18 08:55 Blood Peripheral Aerobic Blood Culture - Preliminary Staphylococcus Aureus Resulted 02/15/18 08:55 Blood Peripheral Anaerobic Blood Culture - Preliminary NO GROWTH IN 2 DAYS Resulted 02/15/18 07:52 Sputum Endotracheal Gram Stain - Final Resulted 02/15/18 07:52 Sputum Culture - Preliminary Staphylococcus Aureus Resulted 02/15/18 07:52 Urine Catheterized Urine Urine Culture - Final NO GROWTH IN 48 HOURS. Complete Imaging Last Impressions Liver Ultrasound 02/17/18 0000 Signed Impressions: CONCLUSION: 1. Hepatomegaly with coarsened liver echotexture. No focal liver lesion is heath ntified. 2. Mild splenomegaly. Chest X-Ray 02/16/18 0600 Signed Impressions: CONCLUSION: Cardiomegaly. Foot MRI 02/14/18 0000 Signed Impressions: CONCLUSION: 1. Diffuse subcutaneous edema of the foot with mild enhancement along the dors al aspect of the foot. This could represent cellulitis. No abscess is identifie d and there are no findings to indicate osteomyelitis. 2. There is some degree of osseous fusion at the tibiotalar joint and there is severe degenerative change at the subtalar joint and talonavicular joint. 3. Old healed fracture of the fifth metatarsal. Foot X-Ray 02/13/18 Signed Impressions: CONCLUSION: 1. There is a transverse fracture through the mid fifth metatarsal. Adjacent p eriosteal reaction is present suggesting that it is subacute or chronic. 2. There has been prior arthrodesis of the subtalar joint and tibiotalar joint s with osseous fusion. Hypertrophic osteophytes are present at the talonavicula r joint. Abdomen X-Ray 02/13/18 Signed Impressions: CONCLUSION: 1. Prominent gaseous distention of the stomach. Patient may benefit from gastr ic decompression. 2. No significant dilatation of the bowel at this time. Head CT 02/12/18 Signed Impressions: CONCLUSION: Chronic small vessel ischemic and atrophic changes. Cervical Spine CT 02/12/18 Signed Impressions: CONCLUSION: Unremarkable study except for slight degenerative spondylosis. CT Angiography 02/12/18 Signed Impressions: CONCLUSION: 1. Possible nodules within the thyroid gland mainly on the right side. 2. Slight fatty liver. 3. No definite pulmonary embolus. Abdomen/Pelvis CT 02/12/18 Signed Impressions: CONCLUSION: 1. Slight fatty liver. 2. Probable left adrenal adenoma. Physical Exam CONSTITUTIONAL/GENERAL: This is a morbidly obese patient, intubated TUBES/LINES/DRAINS: SKIN: No jaundice, rashes, or lesions. Skin temperature appropriate. HEAD: Atraumatic. Normocephalic. EYES: Pupils equal and round and reactive. No scleral icterus. No injection or drainage. Fundi not examined. ENT: Intubated. NECK: Trachea midline. Supple, nontender. No palpable thyroid enlargement or nodularity. CARDIOVASCULAR: HS audible. RESPIRATORY/CHEST: Symmetric, unlabored respirations. Clear to auscultation. Breath sounds equal bilaterally. No wheezes, rales, or rhonchi. GASTROINTESTINAL: Abdomen soft, non-tender, mildly distended. Obese. GENITOURINARY: Without palpable bladder distension. Charlton catheter in place with clear yellow urine 50 cc. MUSCULOSKELETAL: Extremities without clubbing, cyanosis, Marked generalysed edema. Bilateral LE erythema with induration noted. + chronic edema present + some erythema more prominent on the L ankle NEUROLOGICAL: sedated. On vent PSYCHIATRIC:unable to assess Assessment & Plan Remarks Severe Sepsis present on admission Mitral valve endocarditis, MSSA MSSA high grade bacteremia. Bilateral LE cellulitis. Ho Rt foot hardware infection MRI w/o e/o osteomyelitis in either feet acute metabolic encephalopathy:sepsis, metabolic. acute resp failure on vent. acute renal failure oliguric: sepsis, meds oxacillin, vanco etc. May end up needing HD. CAD s/p CABG ARF with oliguria and fluid overload : no e/o interstitial nephritis - nephrologyn ff - HD to be started Recs: cont Ancef IV q8hrs equivalent. renal dose adjustment per pharmacy. Notified Pharmacist Marshall of low urine output. cont Teflaro IV (2nd agent pending sterilization of blood cultures may be DCed once sterilization of cultures achieved) Cannot use Rifampin due to elevated LFTs Cannot use Genta due to worsening renal function. Consult nephrology oliguric renal failure. Will dw to [facility] to assess if hardware can be assessed using Bone scan plus MRI or WBC scan MRI C and L spine non contrast will defer to . Change PIVs if possible could be source of ongoing bacteremia. more BC [facility] sisters @ b/s Lois Otero MD Feb 17, 2018 16:22
[2018-02-17] MEDS: SENNOSIDES SYRUP 8.8 MG/5 ML CUP PO SCH (17:13)
[2018-02-17] MEDS: DOCUSATE SODIUM 100 MG/10 ML UDC PO SCH (21:08)
[2018-02-18] VITALS (18 sets, daily range): BP systolic 100–168; BP diastolic 63–96; PULSE 76–87; RESP 17–20; TEMP 97.9–99.6; O2SAT 95–99
[2018-02-18] MEDS: PROPOFOL 1000 MG/100 ML INJ 100 ML IV PRN ×6 (00:40→21:00)
[2018-02-18] MEDS: INSULIN ASPART SUPPLEMENTAL SCALE SQ SCH ×4 (00:40→17:14)
[2018-02-18] MEDS: ceFAZolin 2 GM/DEX PREMIX 50 ML IV SCH ×2 (00:41→13:00)
[2018-02-18] MEDS: CEFTAROLINE INJ 300 MG in SODIUM CHLORIDE 0.9% INJ 100 ML IV SCH ×3 (03:55→20:59)
[2018-02-18] MEDS: fentaNYL DRIP 250 ML IV PRN ×2 (03:56→14:53)
[2018-02-18 05:49] LABS: HEMATOCRIT 34.7 % (39.0-51.0); HEMOGLOBIN 11.4 GM/DL (13.0-17.0); MEAN CELL VOLUME 82.4 FL (80.0-100.0); MEAN CORPUSCULAR HEMOGLOBIN 27.1 PG (27.0-34.0); MEAN CORPUSCULAR HGB CONC 32.9 % (32.0-36.0); MEAN PLATELET VOLUME 9.3 FL (7.0-11.0); PLATELET COUNT 158 TH/MM3 (150-450); RED BLOOD COUNT 4.21 MIL/MM3 (4.50-5.90); RED CELL DISTRIBUTION WIDTH 18.1 % (11.6-17.2); WHITE BLOOD COUNT 12.8 TH/MM3 (4.0-11.0)
[2018-02-18] MEDS: HEPARIN SODIUM - SQ 10,000 UNITS/ML VIAL SQ SCH ×2 (06:10→13:00)
[2018-02-18 06:41] LABS: ALBUMIN 1.7 GM/DL (3.4-5.0); BICARBONATE 27.7 MEQ/L (21.0-32.0); CALCIUM 7.3 MG/DL (8.5-10.1); CALCIUM-PROTEIN CORRECTED 7.7 MG/DL (8.5-10.1); CREATININE 5.75 MG/DL (0.60-1.30); TOTAL BILIRUBIN ADULT 1.6 MG/DL (0.2-1.0); TOTAL PROTEIN 6.3 GM/DL (6.4-8.2)
--- NOTE | 2018-02-18 07:57 | HHI.CCPN ---
Subjective Remarks/Hospital Course Hospital Course: This is a 62yM with history of prior stroke, DM, CAD who presents after his brother found him after he fell. He states he was on the floor for > 18 hours. He endorses a week of fatigue, fever, chills. denies any other symptoms. denies chest pain, shortness of breath, nausea, vomiting, constipation, diarrhea. does endorse generalized abdominal pain which is mild. in the ER he was tachycardic and very diaphoretic. he has laboratory evidence of CK 7000, wbc 17k, Cr 1.3, trop 0.8. CT chest/abd/pelvis unremarkable. CT head and c-spine negative for trauma. febrile to 103 in the ER. given 2L NS ivf with improvement in his HR. remainder of ROS negative. 02/13: somewhat improved, feeling slightly better. remains febrile. cultures still pending. repeat lactate pending. HR improving. 02/14: Patient had episodes of temperatures of 103 with diaphoresis tachypnea yesterday. Blood cultures growing staph aureus 4 out of 4. Evaluated by ANGI Otero yesterday. Respiratory status declined overnight and patient was intubated and placed on mechanical ventilation. Currently remains sedated, orally intubated on mechanical ventilation. 02/15: Remains sedated, orally intubated on mechanical ventilation. Cardiology consulted by Dr. Otero to evaluate for STEF for persistent MSSA bacteremia. 02/16: remains very critically ill. persistent + blood cultures for MSSA. STEF still pending. Cr doubled overnight again despite +10L in last 48h. no improvement at all, and all organ systems are worse. no implantable devices. central lines were placed on admission. 02/17 Patient remains sedated with Diprivan and Fentanyl drip. Afebrile. 02/18 Patient was started on HD yesterday remains sedated and intubated. Objective Vital Signs Date Time Temp Pulse Resp B/P (MAP) Pulse Ox O2 Delivery O2 Flow Rate FiO2 02/18/18 06:00 86 02/18/18 04:07 97 45 02/18/18 04:00 97.9 18 136/65 (88) 02/17/18 20:00 Mechanical Ventilator Intake and Output 02/18/18 02/18/18 02/19/18 08:00 16:00 00:00 Intake Total 978 ml Output Total 100 ml Balance 878 ml Result Diagram: 02/18/18 0446 02/18/18 0446 Other Results Laboratory Tests Test 02/17/18 08:20 02/17/18 18:58 02/18/18 04:46 Urine Eosinophils NONE SEEN /HPF Urine Random Creatinine 64 MG/DL Urine Random Total Protein 359 MG/DL Urine Protein/Creatinine Ratio 5.61 Hepatitis A IgM Antibody NONREACTIVE Hepatitis B Surface Antigen NONREACTIVE Hepatitis B Core IgM Antibody NONREACTIVE Hepatitis C IgG Antibody NONREACTIVE White Blood Count 12.8 TH/MM3 Red Blood Count 4.21 MIL/MM3 Hemoglobin 11.4 GM/DL Hematocrit 34.7 % Mean Corpuscular Volume 82.4 FL Mean Corpuscular Hemoglobin 27.1 PG Mean Corpuscular Hemoglobin Concent 32.9 % Red Cell Distribution Width 18.1 % Platelet Count 158 TH/MM3 Mean Platelet Volume 9.3 FL Blood Urea Nitrogen 64 MG/DL Creatinine 5.75 MG/DL Random Glucose 271 MG/DL Total Protein 6.3 GM/DL Albumin 1.7 GM/DL Calcium Level 7.3 MG/DL Alkaline Phosphatase 184 U/L Aspartate Amino Transf (AST/SGOT) 96 U/L Alanine Aminotransferase (ALT/SGPT) 76 U/L Total Bilirubin 1.6 MG/DL Sodium Level 132 MEQ/L Potassium Level 5.6 MEQ/L Chloride Level 90 MEQ/L Carbon Dioxide Level 27.7 MEQ/L Anion Gap 14 MEQ/L Estimat Glomerular Filtration Rate 10 ML/MIN Protein Corrected Calcium 7.7 MG/DL Imaging Last Impressions Liver Ultrasound 02/17/18 0000 Signed Impressions: CONCLUSION: 1. Hepatomegaly with coarsened liver echotexture. No focal liver lesion is heath ntified. 2. Mild splenomegaly. Chest X-Ray 02/16/18 0600 Signed Impressions: CONCLUSION: Cardiomegaly. Foot MRI 02/14/18 0000 Signed Impressions: CONCLUSION: 1. Diffuse subcutaneous edema of the foot with mild enhancement along the dors al aspect of the foot. This could represent cellulitis. No abscess is identifie d and there are no findings to indicate osteomyelitis. 2. There is some degree of osseous fusion at the tibiotalar joint and there is severe degenerative change at the subtalar joint and talonavicular joint. 3. Old healed fracture of the fifth metatarsal. Foot X-Ray 5/31/18 0000 Signed Impressions: CONCLUSION: 1. There is a transverse fracture through the mid fifth metatarsal. Adjacent p eriosteal reaction is present suggesting that it is subacute or chronic. 2. There has been prior arthrodesis of the subtalar joint and tibiotalar joint s with osseous fusion. Hypertrophic osteophytes are present at the talonavicula r joint. Abdomen X-Ray 02/13/18 Signed Impressions: CONCLUSION: 1. Prominent gaseous distention of the stomach. Patient may benefit from gastr ic decompression. 2. No significant dilatation of the bowel at this time. Head CT 02/12/18 Signed Impressions: CONCLUSION: Chronic small vessel ischemic and atrophic changes. Cervical Spine CT 02/12/18 Signed Impressions: CONCLUSION: Unremarkable study except for slight degenerative spondylosis. CT Angiography 02/12/18 Signed Impressions: CONCLUSION: 1. Possible nodules within the thyroid gland mainly on the right side. 2. Slight fatty liver. 3. No definite pulmonary embolus. Abdomen/Pelvis CT 02/12/18 Signed Impressions: CONCLUSION: 1. Slight fatty liver. 2. Probable left adrenal adenoma. Objective Remarks GENERAL: Patient is 62 yo intubated and sedated SKIN: Warm and dry. HEAD: Normocephalic. EYES: No scleral icterus. No injection or drainage. NECK: Supple, trachea midline. No JVD or lymphadenopathy. CARDIOVASCULAR: Regular rate and rhythm without murmurs, gallops, or rubs. RESPIRATORY: Breath sounds equal bilaterally. No accessory muscle use. GASTROINTESTINAL: Abdomen soft, non-tender, nondistended. MUSCULOSKELETAL: No cyanosis, or edema. Neuro: Intubated. A/P Assessment and Plan Assessment: 62yM with rhabdomyolysis and severe sepsis with MSSA bacteremia. clearly infected with fever, leukocytosis, tachycardia, and end-organ dysfunction from his sepsis. continue abx. will obtain STEF today. unclear volume status, but likely starting to be volume overloaded which is not helping kidney injury and respiratory failure, both of which are worse today. remains critically ill with organ failure deteriorating and actively worsening. Neuro: On Diprivan and Fentanyl infusion for sedation. Daily sedation vacation Monitor neuro status. CT brain 02/12: Chronic small vesssel ischemic changes Pulm: VDRF Continue with vent support keep sats >92% Bronchodilators, ICU vent bundle. SBT daily as sahara CV: Type II NSTEMI, Elevated troponin, likely secondary to demand ischemia - CT pulmonary angiogram negative for PE. Monitor HR and BP keep MAP>65mmHg Lactic acid 2.8 on 02/13 STEF 02/16: EF 55-60%, grade I diastolic dysfunction. Small mobile echodensity is noted on the subvalvular apparatus of the posterior mitral valve leaflet. ?small vegetation, sclerosis, or partial chordae tendineae rupture. Cards signed off : ARF Rhabdo Monitor renal function, I/O's, avoid nephrotoxins HD initiated 02/17 with removal 2.5L Cr:5.75 today from Renal is following. Dr. Brewer GI: Elevated LFT's On tube feeds- Nepro with goal rate 40ml/hr On Protonix 40mg daily for GI prophylaxis Monitor LFT's, CT abd/pelvis 02/12: Slight fatty liver Hep B,C non reactive US liver: Hepatomegaly with coarsened liver echotexture. No focal liver lesion is identified. Mild splenomegaly ID Staph bacteremia - source LE cellulitis? - MRI bilateral feet: negative for osteo - podiatry consult -ID consult Dr. Otero -Continue abx per ID (Ancef, Teflaro) monitor for signs of infections ( Fever, WBC) Follow up on BC from 02/17: NGTD - blood cultures: 02/12: 4/4 bottles MSSA 02/13: 2/4 bottles MSSA 02/15: 1/4 bottles MSSA - sputum culture: NGTD Heme: Anemia Thrombocytopenia Monitor CBC Endo: Hyperglycemia Diabetes Mellitus, type 2 - SSI med scale, q6h, add Levemir 5u Q12 Prophylaxis SCDs SQH Protonix Lines: Right IJ vascath placed 02/17 by IR Critical care time: 30 minutes, exclusive of separately billable procedures. Apolinar Munson MD Feb 18, 2018 07:57
[2018-02-18] MEDS: CHLORHEXIDINE 0.12% (ORAL KIT) 15 ML CUP MT SCH ×2 (08:00→20:59)
[2018-02-18] MEDS: SENNOSIDES SYRUP 8.8 MG/5 ML CUP PO SCH (08:10)
[2018-02-18] MEDS: PANTOPRAZOLE SODIUM 40 MG VIAL IV PUSH SCH (08:10)
[2018-02-18] MEDS: guaiFENesin E.R. 600 MG TAB PO SCH ×2 (08:10→20:59)
[2018-02-18] MEDS: DOCUSATE SODIUM 100 MG/10 ML UDC PO SCH ×2 (08:10→20:59)
[2018-02-18] MEDS: INSULIN DETEMIR 100 UNITS/ML VIAL SQ SCH (08:14)
--- NOTE | 2018-02-18 08:17 | RADRPT ---
EXAM DATE: 02/17/2018 1:48 PM EDT AGE/SEX: 62 years / Male INDICATIONS: Patient presents with acute renal failure in need of dialysis catheter placement. CLINICAL DATA: This is the patient's initial encounter. Patient reports that signs and symptoms have been present for 4 - 6 days and indicates a pain score of Nonresponsive. MEDICAL/SURGICAL HISTORY: . DiabetesHyperlipidemiaChronic pain syndromebilateral lower extremit y ulcersBPHHypertensionColon cancer prior NSTEMICADprior GI bleedanemia ArthritisCHFGERD . partial c olectomyskin grafts to right ankleleft ankle surgery COMPARISON: No prior Daniels exams available for comparison. FLUORO TIME (min): 0.2 IMAGE SERIES: 2 ACCESS SITE: Right internal jugular vein DEVICE(S): 14 Greek double lumen Schon catheter . . PROCEDURE : 1. Ultrasound guided venipuncture. 2. Fluoroscopic guidance. 3. Central line placement. The risks, benefits and alternatives to the procedure were explained and verbal and written consent w as obtained. The site was prepped in sterile fashion. Full sterile technique was used, including ca p, mask, sterile gloves and gown and a large sterile sheet. Hand hygiene and 2% chlorhexidine prep w as utilized per protocol for cutaneous antisepsis with appropriate dry time for site. Sterile gel an d sterile probe cover were utilized for ultrasound guidance. The skin and subcutaneous tissues were infiltrated with local anesthetic solution. A suitable site a natalie the vein was selected with ultrasound and fluoroscopic guidance. A small incision was made. Th e vein was accessed under direct ultrasound visualization using the micropuncture technique. The kale ropuncture set was exchanged for a 0.035 wire. The tract was dilated. The catheter was advanced int o position under direct fluoroscopic visualization, and was advanced with the tip at the junction of the superior vena cava and rt atrium. The catheter was fixed in place with suture and a sterile dres sing was applied. The patient tolerated the procedure well and there were no complications. CONCLUSION: 1. Uncomplicated line placement as above. Electronically signed by: Gus Loyola MD 02/18/2018 8:15 AM EDT
--- NOTE | 2018-02-18 12:18 | HHI.NPPN ---
Subjective History of Present Illness The patient is a 62 yo [place] male with PMHx of DM, CAD, CVA, BPH, HTN, Colon CA, Anemia, GERD, who was brought into this facility on 02/12/18 after brother found him down on the ground at his home for >18hrs. Unclear if he had lost consciousness or the mechanism of his fall as the patient is currently intubated and sedated. Has been diagnosed with MSSA sepsis, but source is not entirely clear. Has hardware in his right ankle but podiatry does not feel that this is the source. Underwent STEF this AM and cardiology is suspicious for mitral valve vegetation, however, formal report is pending. His admitting SCr was 1.32 and has deteriorated to 4.14 at time of consult. He is 10L to the positive and UOP is marginal. Nephrology has been consulted for management of acute renal failure. Appears preserved renal functions predating this admission, with baseline SCr 0.6-0.8 as per Oct 2017 admission. Interval History Pt seen during 2nd HD. Seems to be tolerating well. Significant edema still UOP marginal (Katherine Penaloza) Review of Systems General General Remarks Patient intubated on ventilatory support. (Katherine Penaloza) Objective Data Data Vital Signs Date Time Temp Pulse Resp B/P (MAP) Pulse Ox O2 Delivery O2 Flow Rate FiO2 02/18/18 11:23 96 45 02/18/18 10:40 45 02/18/18 10:00 79 02/18/18 09:30 45 02/18/18 08:22 96 45 02/18/18 08:00 98.8 80 17 160/74 (102) 96 02/18/18 08:00 80 02/18/18 08:00 45 02/18/18 07:00 96 Mechanical Ventilator 45 02/18/18 06:00 86 02/18/18 04:07 97 45 02/18/18 04:00 45 02/18/18 04:00 86 02/18/18 04:00 97.9 76 18 136/65 (88) 99 02/18/18 02:00 85 02/18/18 00:00 45 02/18/18 00:00 98.7 76 18 147/67 (93) 97 02/18/18 00:00 78 02/17/18 23:21 98 45 02/17/18 22:00 75 02/17/18 20:00 75 02/17/18 20:00 96 Mechanical Ventilator 45 02/17/18 20:00 98.8 75 18 134/65 (88) 96 02/17/18 20:00 45 02/17/18 19:19 97 45 02/17/18 18:00 77 02/17/18 16:00 45 02/17/18 16:00 79 02/17/18 16:00 98.8 79 18 179/81 (113) 98 02/17/18 15:13 97 45 02/17/18 14:00 79 02/17/18 13:35 100 100 (aKtherine Penaloza) -: 02/18/18 0446 02/18/18 0758 Microbiology 02/17/18 Aerobic Blood Culture - Preliminary, Resulted NO GROWTH IN 1 DAY 02/17/18 Anaerobic Blood Culture - Preliminary, Resulted NO GROWTH IN 1 DAY 02/17/18 Aerobic Blood Culture - Preliminary, Resulted NO GROWTH IN 1 DAY 02/17/18 Anaerobic Blood Culture - Preliminary, Resulted NO GROWTH IN 1 DAY Imaging Last Impressions Liver Ultrasound 02/17/18 0000 Signed Impressions: CONCLUSION: 1. Hepatomegaly with coarsened liver echotexture. No focal liver lesion is heath ntified. 2. Mild splenomegaly. Catheter Placement X-Ray 02/17/18 0000 Signed Impressions: CONCLUSION: 1. Uncomplicated line placement as above. Chest X-Ray 02/16/18 0600 Signed Impressions: CONCLUSION: Cardiomegaly. Foot MRI 02/14/18 0000 Signed Impressions: CONCLUSION: 1. Diffuse subcutaneous edema of the foot with mild enhancement along the dors al aspect of the foot. This could represent cellulitis. No abscess is identifie d and there are no findings to indicate osteomyelitis. 2. There is some degree of osseous fusion at the tibiotalar joint and there is severe degenerative change at the subtalar joint and talonavicular joint. 3. Old healed fracture of the fifth metatarsal. Foot X-Ray 02/13/18 0000 Signed Impressions: CONCLUSION: 1. There is a transverse fracture through the mid fifth metatarsal. Adjacent p eriosteal reaction is present suggesting that it is subacute or chronic. 2. There has been prior arthrodesis of the subtalar joint and tibiotalar joint s with osseous fusion. Hypertrophic osteophytes are present at the talonavicula r joint. Abdomen X-Ray 02/13/18 Signed Impressions: CONCLUSION: 1. Prominent gaseous distention of the stomach. Patient may benefit from gastr ic decompression. 2. No significant dilatation of the bowel at this time. Head CT 02/12/18 0000 Signed Impressions: CONCLUSION: Chronic small vessel ischemic and atrophic changes. Cervical Spine CT 02/12/18 0000 Signed Impressions: CONCLUSION: Unremarkable study except for slight degenerative spondylosis. CT Angiography 02/12/18 Signed Impressions: CONCLUSION: 1. Possible nodules within the thyroid gland mainly on the right side. 2. Slight fatty liver. 3. No definite pulmonary embolus. Abdomen/Pelvis CT 02/12/18 Signed Impressions: CONCLUSION: 1. Slight fatty liver. 2. Probable left adrenal adenoma. Tubes & Lines: Vas-Cath (RIJ) Medication Review Current Medications Medications (Trade) Dose Ordered Sig/Ada Route Start Time Stop Time Status Last Admin (NS Flush) 2 ml UNSCH PRN IV FLUSH 02/12/18 21:45 02/12/18 21:58 (Duoneb Neb) 1 ampule Q2HR NEB PRN INH 02/13/18 00:00 02/13/18 11:38 (Protonix Inj) 40 mg DAILY IV PUSH 02/13/18 09:00 02/18/18 08:10 ([facility] [place] Nursing Information) 1 Q361D XX 02/13/18 00:00 (Chlorhexidine 2% Cloth) Taper DAILY@04 TOP 02/13/18 04:00 02/09/19 03:59 02/17/18 03:24 (Chlorhexidine 2% Cloth) 3 pack UNSCH PRN TOP 02/13/18 00:00 (Heparin Inj) 5,000 units Q8HR SQ 02/13/18 06:00 02/18/18 06:10 (Roxicodone) 5 mg Q4H PRN PO 02/13/18 09:00 (Dilaudid Pf Inj) 0.2 mg Q4H PRN IV PUSH 02/13/18 09:00 02/13/18 09:52 (Tylenol) 650 mg Q4H PRN PO 02/13/18 10:45 02/14/18 19:23 (Trandate Inj) 20 mg Q2H PRN IV PUSH 02/13/18 11:00 02/13/18 17:49 (Mucinex Er) 600 mg BID PO 02/13/18 11:00 02/17/18 21:08 (Cepacol Extra Sia (Sugar Free)) 1 lozenge Q1H PRN BUCCAL 02/13/18 11:00 02/13/18 11:03 (NovoLOG SUPPLEMENTAL SCALE) 1 Q6HR SQ 02/13/18 12:15 02/18/18 06:10 (D50w (Syr) Inj) 50 ml UNSCH PRN IV PUSH 02/13/18 12:15 (Glucagon Inj) 1 mg UNSCH PRN OTHER 02/13/18 12:15 Propofol 100 ml @ 3.66 mls/hr TITRATE PRN IV 02/13/18 19:45 02/18/18 08:26 (Peridex 0.12% Liq) 15 ml BID@08,20 MT 02/14/18 08:00 02/18/18 08:00 Fentanyl Citrate 250 ml @ 5 mls/hr TITRATE PRN IV 02/13/18 21:15 02/18/18 03:56 Ceftaroline Fosamil 300 mg/ Sodium Chloride 100 ml @ 100 mls/hr Q8H IV 02/16/18 12:00 02/18/18 03:55 Cefazolin Sodium/ Dextrose 50 ml @ 100 mls/hr Q12H IV 02/16/18 13:00 02/18/18 00:41 Sodium Chloride 1,000 ml @ 0 mls/hr Q0M PRN OTHER 02/17/18 11:29 (Heparin Inj) 8,000 units UNSCH PRN IV FLUSH 02/17/18 11:30 Sodium Chloride 1,000 ml @ 200 mls/hr Q5H PRN IV 02/17/18 11:29 Sodium Chloride 1,000 ml @ 0 mls/hr Q0M PRN OTHER 02/17/18 11:29 Albumin Human 100 ml @ 60 mls/hr UNSCH PRN IV 02/17/18 11:30 (NS Flush) 5 ml UNSCH PRN IV FLUSH 02/17/18 11:30 (Heparin Inj) UNSCH PRN .XX 02/17/18 11:30 02/17/18 14:58 (Gentamicin Inj) 20 mg UNSCH PRN OTHER 02/17/18 11:30 02/17/18 14:58 (Zofran Odt) 4 mg UNSCH PRN PO 02/17/18 12:00 (Tylenol) 650 mg UNSCH PRN PO 02/17/18 11:30 (Benadryl) 25 mg UNSCH PRN PO 02/17/18 11:30 (Nitrostat Sl) 0.4 mg UNSCH PRN SL 02/17/18 11:30 (Catapres) 0.1 mg UNSCH PRN PO 02/17/18 11:30 (Gelfoam 12 Mm/7 Mm Top) 1 foam UNSCH PRN TOP 02/17/18 11:30 (NS Flush) UNSCH PRN IV FLUSH 02/17/18 13:30 (Heparin Inj) UNSCH PRN IV FLUSH 02/17/18 13:30 (Senna Liq) 8.8 mg DAILY PO 02/17/18 15:30 02/18/18 08:10 (Colace Liq) 100 mg Q12HR PO 02/17/18 21:00 02/18/18 08:10 (Levemir Inj) 5 units Q12HR SQ 02/18/18 09:00 02/18/18 08:14 (Katherine Penaloza) Physical Exam General Appearance: Comfortable, Obese (Katherine Penaloza) Eyes Eye Exam: Sclera White (Katherine Penaloza) Neck Neck Exam: Trachea Midline (Katherine Penaloza) Pulmonary Resp Exam: Clear Bilaterally, Breath Sounds Equal, Decreased Bases (Katherine Penaloza) Cardiology CV Exam: Regular, Normal Sinus Rhythm (Katherine Penaloza) Gastrointestinal/Abdomen GI Exam: Soft, Non-Tender (Katherine Penaloza) Integumentary Skin Exam: Clear, Warm (Katherine Penaloza) Extremeties Extremities Exam: Moderate Edema, Pitting Edema (Generalized edema.) (Katherine Penaloza) Neurologic Neuro Exam: Sedated (Katherine Penaloza) Assessment/Plan Discussed Condition With: Sibling Problem List: (1) Acute renal failure ICD Codes: N17.9 - Acute kidney failure, unspecified Plan: Etiology multifactorial: elevated CPK indicating rhabdomyolysis, sepsis , contrast exposure (Gadolinium 02/14, iodinated 02/12 x2). HD started 02/17 with 2nd session 02/18 May need HD again tomorrow to improve volume status. HD RN notified and will out down as tentative. Medications should be adjusted for the patient's renal decline. Avoid nephrotoxic medications such as iodinated contrast dyes and NSAIDs. Avoid gadolinium. (2) Sepsis ICD Codes: A41.9 - Sepsis, unspecified organism Status: Acute Plan: Source? Pending STEF results Abx as per ID (3) Rhabdomyolysis ICD Codes: M62.82 - Rhabdomyolysis Status: Acute Plan: Apparent given elevated CPK and urinary sediment. CPK trending down. Continue to monitor. (4) Transaminitis ICD Codes: R74.0 - Nonspecific elevation of levels of transaminase and lactic acid dehydrogenase [LDH] (5) Adrenal nodule ICD Codes: E27.9 - Disorder of adrenal gland, unspecified Plan: Incidentally noted on CT scan. Not pertinent to his admission, but should be followed up on as outpatient (Katherine Penaloza) Plan The exam, history, and the medical decision-making described in the above note were completed with the assistance of the PA-Tavon. I reviewed and agree with the findings presented. (Jeffy Brewer MD) Problem Qualifiers (1) Rhabdomyolysis: Qualified Codes: T79.6XXA - Traumatic ischemia of muscle, initial encounter Katherine Penaloza Feb 18, 2018 12:18 Jeffy Brewer MD Feb 19, 2018 17:08
[2018-02-18] MEDS: SODIUM CHLOR 0.9% 1000 ML INJ 1,000 ML OTHER PRN (13:55)
[2018-02-18] MEDS: GENTAMICIN SULFATE 20 MG/2 ML VIAL OTHER PRN (13:55)
[2018-02-18] MEDS: HEPARIN SODIUM - IV 10,000 UNITS/10 ML VIAL PRN (13:55)
[2018-02-18] MEDS: RESP: ALBUTEROL 2.5 MG/IPRATROPIUM 0.5 MG NEB (PRN) INH (15:50)
--- NOTE | 2018-02-18 16:51 | HHI.IDPN ---
Subjective Subjective Remarks is a 62 y/o with PMHx of prior stroke, DM, CAD who presents after his brother found him after he fell. He states he was on the floor for > 18 hours. In admitting history a week of fatigue, fever, chills, generalized abdominal pain which is mild. Labs showed CK 7000, wbc 17k, Cr 1.3, trop 0.8. CT chest/abd/pelvis unremarkable. CT head and c-spine negative for trauma. Pt is febrile with T max of 103 Lactic acidosis of 4.4 Elevated troponine + blood ketones Today blood clx positive 4/4 for GPC in pairs, clusters Intubated and sedated after ICU admission Overnight events reviewed No fevers No rash No diarrhea Now on Hemodialysis. Xray abdomen with ileus now on bowel regimen RN informs me. Sedated. Underwent STEF with vegetation on mitral valve. Not on pressors. Antibiotics ancef iv teflaro iv Lines PIVs look ok Past Medical History Past Medical History Diabetes Hyperlipidemia Chronic pain syndrome bilateral lower extremity ulcers BPH Hypertension Colon cancer s/p partial colectomy prior NSTEMI severe 2-vessel CAD managed medically old RBBB prior GI bleed anemia secondary to GI bleeding Arthritis CHF, unknown type GERD Past Surgical History partial colectomy skin grafts to right ankle left ankle surgery CABG Allergies: Coded Allergies: No Known Allergies (Unverified , 10/21/17) Objective . Vital Signs Date Time Temp Pulse Resp B/P (MAP) Pulse Ox O2 Delivery O2 Flow Rate FiO2 02/18/18 15:54 98 45 02/18/18 14:00 78 02/18/18 12:00 45 02/18/18 12:00 99.6 87 19 168/75 (106) 96 02/18/18 12:00 87 02/18/18 11:23 96 45 02/18/18 10:40 45 02/18/18 10:00 79 02/18/18 09:30 45 02/18/18 08:22 96 45 02/18/18 08:00 98.8 80 17 160/74 (102) 96 02/18/18 08:00 80 02/18/18 08:00 45 02/18/18 07:00 96 Mechanical Ventilator 45 02/18/18 06:00 86 02/18/18 04:07 97 45 02/18/18 04:00 45 02/18/18 04:00 86 02/18/18 04:00 97.9 76 18 136/65 (88) 99 02/18/18 02:00 85 02/18/18 00:00 45 02/18/18 00:00 98.7 76 18 147/67 (93) 97 02/18/18 00:00 78 02/17/18 23:21 98 45 02/17/18 22:00 75 02/17/18 20:00 75 02/17/18 20:00 96 Mechanical Ventilator 45 02/17/18 20:00 98.8 75 18 134/65 (88) 96 02/17/18 20:00 45 02/17/18 19:19 97 45 02/17/18 18:00 77 02/18/18 02/18/18 02/19/18 15:00 23:00 07:00 Intake Total 366 ml 82.5 ml Output Total 3000 ml Balance -2634 ml 82.5 ml IV Total 366 ml 82.5 ml Hemodialysis 3000 ml . Laboratory Tests Test 02/17/18 06:52 02/18/18 04:46 White Blood Count 10.0 TH/MM3 12.8 TH/MM3 Red Blood Count 4.05 MIL/MM3 4.21 MIL/MM3 Hemoglobin 11.0 GM/DL 11.4 GM/DL Hematocrit 32.8 % 34.7 % Mean Corpuscular Volume 81.0 FL 82.4 FL Mean Corpuscular Hemoglobin 27.3 PG 27.1 PG Mean Corpuscular Hemoglobin Concent 33.6 % 32.9 % Red Cell Distribution Width 18.3 % 18.1 % Platelet Count 151 TH/MM3 158 TH/MM3 Mean Platelet Volume 9.1 FL 9.3 FL Neutrophils (%) (Auto) 72.0 % Lymphocytes (%) (Auto) 10.5 % Monocytes (%) (Auto) 13.9 % Eosinophils (%) (Auto) 3.1 % Basophils (%) (Auto) 0.5 % Neutrophils # (Auto) 7.2 TH/MM3 Lymphocytes # (Auto) 1.0 TH/MM3 Monocytes # (Auto) 1.4 TH/MM3 Eosinophils # (Auto) 0.3 TH/MM3 Basophils # (Auto) 0.0 TH/MM3 CBC Comment AUTO DIFF Differential Comment AUTO DIFF CONFIRMED Tear Drop Cells 1+ Laboratory Tests Test 02/17/18 06:52 02/18/18 04:46 02/18/18 07:58 Blood Urea Nitrogen 71 MG/DL 64 MG/DL Creatinine 5.86 MG/DL 5.75 MG/DL Random Glucose 184 MG/DL 271 MG/DL Total Protein 6.2 GM/DL 6.3 GM/DL Albumin 1.8 GM/DL 1.7 GM/DL Calcium Level 7.4 MG/DL 7.3 MG/DL Phosphorus Level 6.1 MG/DL Alkaline Phosphatase 159 U/L 184 U/L Aspartate Amino Transf (AST/SGOT) 96 U/L 96 U/L Alanine Aminotransferase (ALT/SGPT) 114 U/L 76 U/L Total Bilirubin 2.3 MG/DL 1.6 MG/DL Sodium Level 132 MEQ/L 132 MEQ/L Potassium Level 5.1 MEQ/L 5.6 MEQ/L 5.3 MEQ/L Chloride Level 89 MEQ/L 90 MEQ/L Carbon Dioxide Level 30.2 MEQ/L 27.7 MEQ/L Anion Gap 13 MEQ/L 14 MEQ/L Estimat Glomerular Filtration Rate 10 ML/MIN 10 ML/MIN Protein Corrected Calcium 7.9 MG/DL 7.7 MG/DL Total Creatine Kinase 604 U/L Creatine Kinase MB 0.8 NG/ML Creatine Kinase MB % 0.1 % Microbiology Date/Time Source Procedure Growth Status 02/17/18 17:34 Blood Peripheral Aerobic Blood Culture - Preliminary NO GROWTH IN 1 DAY Resulted 02/17/18 17:34 Blood Peripheral Anaerobic Blood Culture - Preliminary NO GROWTH IN 1 DAY Resulted 02/17/18 17:15 Blood Peripheral Aerobic Blood Culture - Preliminary NO GROWTH IN 1 DAY Resulted 02/17/18 17:15 Blood Peripheral Anaerobic Blood Culture - Preliminary NO GROWTH IN 1 DAY Resulted 02/17/18 08:55 Blood Peripheral Aerobic Blood Culture - Preliminary NO GROWTH IN 1 DAY Resulted 02/17/18 08:55 Blood Peripheral Anaerobic Blood Culture - Preliminary NO GROWTH IN 1 DAY Resulted 02/17/18 08:50 Blood Peripheral Aerobic Blood Culture - Preliminary NO GROWTH IN 1 DAY Resulted 02/17/18 08:50 Blood Peripheral Anaerobic Blood Culture - Preliminary NO GROWTH IN 1 DAY Resulted Imaging Last Impressions Liver Ultrasound 02/17/18 0000 Signed Impressions: CONCLUSION: 1. Hepatomegaly with coarsened liver echotexture. No focal liver lesion is heath ntified. 2. Mild splenomegaly. Chest X-Ray 02/16/18599 Signed Impressions: CONCLUSION: Cardiomegaly. Foot MRI 02/14/18 Signed Impressions: CONCLUSION: 1. Diffuse subcutaneous edema of the foot with mild enhancement along the dors al aspect of the foot. This could represent cellulitis. No abscess is identifie d and there are no findings to indicate osteomyelitis. 2. There is some degree of osseous fusion at the tibiotalar joint and there is severe degenerative change at the subtalar joint and talonavicular joint. 3. Old healed fracture of the fifth metatarsal. Foot X-Ray 02/13/18 Signed Impressions: CONCLUSION: 1. There is a transverse fracture through the mid fifth metatarsal. Adjacent p eriosteal reaction is present suggesting that it is subacute or chronic. 2. There has been prior arthrodesis of the subtalar joint and tibiotalar joint s with osseous fusion. Hypertrophic osteophytes are present at the talonavicula r joint. Abdomen X-Ray 02/13/18 Signed Impressions: CONCLUSION: 1. Prominent gaseous distention of the stomach. Patient may benefit from gastr ic decompression. 2. No significant dilatation of the bowel at this time. Head CT 02/12/18 Signed Impressions: CONCLUSION: Chronic small vessel ischemic and atrophic changes. Cervical Spine CT 02/12/18 Signed Impressions: CONCLUSION: Unremarkable study except for slight degenerative spondylosis. CT Angiography 02/12/18 Signed Impressions: CONCLUSION: 1. Possible nodules within the thyroid gland mainly on the right side. 2. Slight fatty liver. 3. No definite pulmonary embolus. Abdomen/Pelvis CT 02/12/18 Signed Impressions: CONCLUSION: 1. Slight fatty liver. 2. Probable left adrenal adenoma. Physical Exam CONSTITUTIONAL/GENERAL: This is a morbidly obese patient, intubated TUBES/LINES/DRAINS: SKIN: No jaundice, rashes, or lesions. Skin temperature appropriate. HEAD: Atraumatic. Normocephalic. EYES: Pupils equal and round and reactive. No scleral icterus. No injection or drainage. Fundi not examined. ENT: Intubated. NECK: Trachea midline. Supple, nontender. No palpable thyroid enlargement or nodularity. CARDIOVASCULAR: HS audible. RESPIRATORY/CHEST: Symmetric, unlabored respirations. Clear to auscultation. Breath sounds equal bilaterally. No wheezes, rales, or rhonchi. GASTROINTESTINAL: Abdomen soft, non-tender. Obese. GENITOURINARY: Without palpable bladder distension. Charlton catheter in place with clear yellow urine 50 cc. MUSCULOSKELETAL: Extremities without clubbing, cyanosis, Marked generalysed edema. Bilateral LE erythema with induration noted. + chronic edema present + some erythema more prominent on the L ankle NEUROLOGICAL: sedated. On vent PSYCHIATRIC:unable to assess Assessment & Plan Remarks Severe Sepsis present on admission Mitral valve endocarditis, MSSA MSSA high grade bacteremia. Bilateral LE cellulitis. Ho Rt foot hardware infection MRI w/o e/o osteomyelitis in either feet acute metabolic encephalopathy:sepsis, metabolic. acute resp failure on vent. acute renal failure oliguric: sepsis, meds oxacillin, vanco etc. May end up needing HD. CAD s/p CABG ARF with oliguria and fluid overload : no e/o interstitial nephritis - nephrology following, On HD Recs: cont Ancef IV q8hrs equivalent. cont Teflaro IV (2nd agent pending sterilization of blood cultures may be DCed once sterilization of cultures achieved) Cannot use Rifampin due to elevated LFTs Cannot use Genta due to worsening renal function. dw sisters @ b/[facility]: they report patient has had spine issues and foot issues related to an accident. If bacteremia persists and when able consider MRI L spine non contrast. gabriel RN to resume care in [place] Zuniga MD Feb 18, 2018 16:51
[2018-02-19] VITALS (17 sets, daily range): BP systolic 141–205; BP diastolic 64–93; PULSE 73–87; RESP 18–26; TEMP 98.1–102.1; O2SAT 95–100
[2018-02-19] MEDS: ceFAZolin 2 GM/DEX PREMIX 50 ML IV SCH ×2 (01:01→14:26)
[2018-02-19] MEDS: INSULIN DETEMIR 100 UNITS/ML VIAL SQ SCH ×3 (01:01→21:27)
[2018-02-19] MEDS: fentaNYL DRIP 250 ML IV PRN ×2 (01:01→09:08)
[2018-02-19] MEDS: CEFTAROLINE INJ 300 MG in SODIUM CHLORIDE 0.9% INJ 100 ML IV SCH ×2 (04:20→14:26)
[2018-02-19] MEDS: ACETAMINOPHEN 325 MG TAB PO PRN ×2 (04:21→16:28)
[2018-02-19 05:28] LABS: AUTOMATED NEUTROPHIL # 5.5 TH/MM3 (1.8-7.7); BASOPHIL # 0.1 TH/MM3 (0-0.2); BASOPHIL % 0.6 % (0.0-2.0); EOSINOPHIL # 0.2 TH/MM3 (0-0.4); EOSINOPHIL % 2.8 % (0.0-4.0); HEMOGLOBIN 11.2 GM/DL (13.0-17.0); LYMPH % 11.6 % (9.0-44.0); LYMPHOCYTE # 0.9 TH/MM3 (1.0-4.8); MEAN CELL VOLUME 81.8 FL (80.0-100.0); MEAN CORPUSCULAR HEMOGLOBIN 27.7 PG (27.0-34.0); MEAN CORPUSCULAR HGB CONC 33.8 % (32.0-36.0); MEAN PLATELET VOLUME 9.4 FL (7.0-11.0); MONO % 17.5 % (0.0-8.0); MONOCYTE # 1.4 TH/MM3 (0-0.9); NEUT % 67.5 % (16.0-70.0); PLATELET COUNT 210 TH/MM3 (150-450); RED BLOOD COUNT 4.03 MIL/MM3 (4.50-5.90); WHITE BLOOD COUNT 8.1 TH/MM3 (4.0-11.0)
[2018-02-19] MEDS: PROPOFOL 1000 MG/100 ML INJ 100 ML IV PRN ×3 (05:32→13:45)
[2018-02-19] MEDS: INSULIN ASPART SUPPLEMENTAL SCALE SQ SCH ×5 (06:00→23:36)
[2018-02-19] MEDS: HEPARIN SODIUM - SQ 10,000 UNITS/ML VIAL SQ SCH ×3 (06:00→21:27)
[2018-02-19 06:02] LABS: ALBUMIN 1.7 GM/DL (3.4-5.0); ALKALINE PHOSPHATASE 209 U/L (45-117); ALT (GPT) 31 U/L (12-78); AST (GOT) 78 U/L (15-37); BICARBONATE 30.2 MEQ/L (21.0-32.0); BLOOD UREA NITROGEN 53 MG/DL (7-18); CALCIUM 7.6 MG/DL (8.5-10.1); CHLORIDE 94 MEQ/L (98-107); CREATININE 5.47 MG/DL (0.60-1.30); GLOMERULAR FILTRATION RATE 11 ML/MIN (>89); GLUCOSE,RANDOM 238 MG/DL (74-106); PHOSPHORUS 5.3 MG/DL (2.5-4.9); SODIUM (NA) 135 MEQ/L (136-145); TOTAL BILIRUBIN ADULT 1.2 MG/DL (0.2-1.0); TOTAL PROTEIN 6.7 GM/DL (6.4-8.2)
--- NOTE | 2018-02-19 08:05 | HHI.CCPN ---
Subjective Remarks/Hospital Course Hospital Course: This is a 62yM with history of prior stroke, DM, CAD who presents after his brother found him after he fell. He states he was on the floor for > 18 hours. He endorses a week of fatigue, fever, chills. denies any other symptoms. denies chest pain, shortness of breath, nausea, vomiting, constipation, diarrhea. does endorse generalized abdominal pain which is mild. in the ER he was tachycardic and very diaphoretic. he has laboratory evidence of CK 7000, wbc 17k, Cr 1.3, trop 0.8. CT chest/abd/pelvis unremarkable. CT head and c-spine negative for trauma. febrile to 103 in the ER. given 2L NS ivf with improvement in his HR. remainder of ROS negative. 02/13: somewhat improved, feeling slightly better. remains febrile. cultures still pending. repeat lactate pending. HR improving. 02/14: Patient had episodes of temperatures of 103 with diaphoresis tachypnea yesterday. Blood cultures growing staph aureus 4 out of 4. Evaluated by ANGI Otero yesterday. Respiratory status declined overnight and patient was intubated and placed on mechanical ventilation. Currently remains sedated, orally intubated on mechanical ventilation. 02/15: Remains sedated, orally intubated on mechanical ventilation. Cardiology consulted by Dr. Otero to evaluate for STEF for persistent MSSA bacteremia. 02/16: remains very critically ill. persistent + blood cultures for MSSA. STEF still pending. Cr doubled overnight again despite +10L in last 48h. no improvement at all, and all organ systems are worse. no implantable devices. central lines were placed on admission. 02/17 Patient remains sedated with Diprivan and Fentanyl drip. Afebrile. 02/18 Patient was started on HD yesterday remains sedated and intubated. 02/19 Patient s/p HD yesterday with removal 3L. Spiked fever with T:101.3 at 4am. Sedated and intubated Objective Vital Signs Date Time Temp Pulse Resp B/P (MAP) Pulse Ox O2 Delivery O2 Flow Rate FiO2 02/19/18 06:00 83 02/19/18 04:00 45 02/19/18 04:00 101.3 18 141/64 (89) 96 6/5/18 20:00 Mechanical Ventilator Intake and Output 02/19/18 02/19/18 02/20/18 08:00 16:00 00:00 Intake Total 1554 ml Output Total 100 ml Balance 1454 ml Result Diagram: 02/19/18 0320 02/19/18 0320 Other Results Laboratory Tests Test 02/18/18 07:58 02/19/18 03:20 Potassium Level 5.3 MEQ/L 4.3 MEQ/L White Blood Count 8.1 TH/MM3 Red Blood Count 4.03 MIL/MM3 Hemoglobin 11.2 GM/DL Hematocrit 33.0 % Mean Corpuscular Volume 81.8 FL Mean Corpuscular Hemoglobin 27.7 PG Mean Corpuscular Hemoglobin Concent 33.8 % Red Cell Distribution Width 18.0 % Platelet Count 210 TH/MM3 Mean Platelet Volume 9.4 FL Neutrophils (%) (Auto) 67.5 % Lymphocytes (%) (Auto) 11.6 % Monocytes (%) (Auto) 17.5 % Eosinophils (%) (Auto) 2.8 % Basophils (%) (Auto) 0.6 % Neutrophils # (Auto) 5.5 TH/MM3 Lymphocytes # (Auto) 0.9 TH/MM3 Monocytes # (Auto) 1.4 TH/MM3 Eosinophils # (Auto) 0.2 TH/MM3 Basophils # (Auto) 0.1 TH/MM3 CBC Comment AUTO DIFF Blood Urea Nitrogen 53 MG/DL Creatinine 5.47 MG/DL Random Glucose 238 MG/DL Total Protein 6.7 GM/DL Albumin 1.7 GM/DL Calcium Level 7.6 MG/DL Phosphorus Level 5.3 MG/DL Alkaline Phosphatase 209 U/L Aspartate Amino Transf (AST/SGOT) 78 U/L Alanine Aminotransferase (ALT/SGPT) 31 U/L Total Bilirubin 1.2 MG/DL Sodium Level 135 MEQ/L Chloride Level 94 MEQ/L Carbon Dioxide Level 30.2 MEQ/L Anion Gap 11 MEQ/L Estimat Glomerular Filtration Rate 11 ML/MIN Imaging Last Impressions Liver Ultrasound 02/17/18 0000 Signed Impressions: CONCLUSION: 1. Hepatomegaly with coarsened liver echotexture. No focal liver lesion is heath ntified. 2. Mild splenomegaly. Catheter Placement X-Ray 02/17/18 0000 Signed Impressions: CONCLUSION: 1. Uncomplicated line placement as above. Chest X-Ray 02/16/18 0600 Signed Impressions: CONCLUSION: Cardiomegaly. Foot MRI 02/14/18 Signed Impressions: CONCLUSION: 1. Diffuse subcutaneous edema of the foot with mild enhancement along the dors al aspect of the foot. This could represent cellulitis. No abscess is identifie d and there are no findings to indicate osteomyelitis. 2. There is some degree of osseous fusion at the tibiotalar joint and there is severe degenerative change at the subtalar joint and talonavicular joint. 3. Old healed fracture of the fifth metatarsal. Foot X-Ray 02/13/18 Signed Impressions: CONCLUSION: 1. There is a transverse fracture through the mid fifth metatarsal. Adjacent p eriosteal reaction is present suggesting that it is subacute or chronic. 2. There has been prior arthrodesis of the subtalar joint and tibiotalar joint s with osseous fusion. Hypertrophic osteophytes are present at the talonavicula r joint. Abdomen X-Ray 02/13/18 Signed Impressions: CONCLUSION: 1. Prominent gaseous distention of the stomach. Patient may benefit from gastr ic decompression. 2. No significant dilatation of the bowel at this time. Head CT 02/12/18 Signed Impressions: CONCLUSION: Chronic small vessel ischemic and atrophic changes. Cervical Spine CT 02/12/18 Signed Impressions: CONCLUSION: Unremarkable study except for slight degenerative spondylosis. CT Angiography 02/12/18 Signed Impressions: CONCLUSION: 1. Possible nodules within the thyroid gland mainly on the right side. 2. Slight fatty liver. 3. No definite pulmonary embolus. Abdomen/Pelvis CT 02/12/18 Signed Impressions: CONCLUSION: 1. Slight fatty liver. 2. Probable left adrenal adenoma. Objective Remarks GENERAL: Patient is 62 yo intubated and sedated SKIN: Warm and dry. HEAD: Normocephalic. EYES: No scleral icterus. No injection or drainage. NECK: Supple, trachea midline. No JVD or lymphadenopathy. CARDIOVASCULAR: Regular rate and rhythm without murmurs, gallops, or rubs. RESPIRATORY: Breath sounds equal bilaterally. No accessory muscle use. GASTROINTESTINAL: Abdomen soft, non-tender, nondistended. MUSCULOSKELETAL: No cyanosis, or edema. Neuro: Intubated. A/P Assessment and Plan Neuro: On Diprivan and Fentanyl infusion for sedation. Daily sedation vacation Monitor neuro status. CT brain 02/12: Chronic small vessel ischemic changes Pulm: VDRF Continue with vent support keep sats >92% Bronchodilators, ICU vent bundle. SBT daily as sahara Check CXR CV: Type II NSTEMI, Elevated troponin, likely secondary to demand ischemia - CT pulmonary angiogram negative for PE. Place on Lopressor 25mg Q12 Monitor HR and BP keep MAP>65mmHg Lactic acid 2.8 on 02/13 STEF 02/16: EF 55-60%, grade I diastolic dysfunction. Small mobile echodensity is noted on the subvalvular apparatus of the posterior mitral valve leaflet. ?small vegetation, sclerosis, or partial chordae tendineae rupture. Cards signed off : ARF Rhabdo Monitor renal function, I/O's, avoid nephrotoxins HD initiated 02/17 s/p HD yesterday with removal 3L. Cr:5.[address] Brewer GI: Elevated LFT's On tube feeds- Nepro with goal rate 40ml/hr On Protonix 40mg daily for GI prophylaxis Monitor LFT's, CT abd/pelvis 02/12: Slight fatty liver Hep B,C non reactive US liver: Hepatomegaly with coarsened liver echotexture. No focal liver lesion is identified. Mild splenomegaly ID Staph bacteremia - source LE cellulitis? - MRI bilateral feet: negative for osteo - podiatry consult -ID consult Dr. Otero -Continue abx per ID (Ancef, Teflaro) monitor for signs of infections ( Fever, WBC) Will panculture for new onset feevr overnight ( Blood, sputum, UA with cx if indicated) Follow up on BC from 02/17: NGTD - blood cultures: 02/12: 4/4 bottles MSSA 02/13: 2/4 bottles MSSA 02/15: 1/4 bottles MSSA - sputum culture: NGTD Heme: Anemia Thrombocytopenia Monitor CBC Endo: Hyperglycemia Diabetes Mellitus, type 2 - SSI med scale, q6h, increase Levemir 10u Q12 Prophylaxis SCDs SQH Protonix Lines: Right IJ vascath placed 02/17 by IR Critical care time: 30 minutes, exclusive of separately billable procedures. Apolinar Munson MD Feb 19, 2018 08:05
[2018-02-19 08:14] LABS: TEARDROP RBCS 1+ (NORMAL)
--- NOTE | 2018-02-19 08:49 | RADRPT ---
EXAM DATE: 02/19/2018 8:29 AM EDT AGE/SEX: 62 years / Male INDICATIONS: VDRF CLINICAL DATA: This is the patient's subsequent encounter. Patient reports that signs and symptoms h ave been present for 1 week and indicates a pain score of Nonresponsive. MEDICAL/SURGICAL HISTORY: Carcinoma, colon. Hypertension. Hypercholesterolemia. CHF. CVA. BP H. None. COMPARISON: [facility], CHEST SINGLE AP, 02/16/2018. . FINDINGS: Endotracheal tube is present in good position several centimeters above the dalton. Nasogastric tube descends to the stomach. A right neck Vas-Cath descends to SVC. There is hazy bibasilar pleural-paren chymal opacity, slightly worse on the right than the left which has progressed slightly since previou s exam. Cardiac contours are grossly stable. CONCLUSION: Slight interval worsening in aeration Electronically signed by: Gilmar Mclaughlin MD 02/19/2018 8:48 AM EDT
[2018-02-19] MEDS: PANTOPRAZOLE SODIUM 40 MG VIAL IV PUSH SCH (08:52)
[2018-02-19] MEDS: METOPROLOL TARTRATE 25 MG TAB PO SCH ×2 (08:53→21:26)
[2018-02-19] MEDS: guaiFENesin E.R. 600 MG TAB PO SCH ×2 (08:53→21:26)
[2018-02-19] MEDS: DOCUSATE SODIUM 100 MG/10 ML UDC PO SCH ×2 (08:53→21:26)
[2018-02-19] MEDS: SENNOSIDES SYRUP 8.8 MG/5 ML CUP PO SCH (08:53)
[2018-02-19] MEDS: CHLORHEXIDINE 0.12% (ORAL KIT) 15 ML CUP MT SCH ×2 (08:54→21:27)
[2018-02-19 10:16] LABS: AMORPHOUS SEDIMENT, URINE OCC; BACTERIA, URINE MOD /hpf; BILIRUBIN, URINE NEG (NEG); BLOOD, URINE MOD (NEG); GLUCOSE,URINE 70 mg/dL (NEG); KETONE, URINE NEG (NEG); MUCUS URINE FEW /lpf (OCC); NITRITE,URINE NEG (NEG); PH, URINE 6.5 (5.0-8.5); SQUAMOUS EPITHELIAL CELL URINE 4 /hpf (0-5); URINE LEUKOCYTE ESTERASE MOD (NEG)
[2018-02-19 10:18] LABS: URINE COLOR DARK-YELLOW (YELLW/STRAW)
[2018-02-19] MEDS: DEXMEDETOMIDINE 200 MCG in NS 48 ML IV PRN ×4 (14:25→23:01)
[2018-02-19] MEDS: LABETALOL HCL 100 MG/20 ML VIAL IV PUSH PRN ×2 (16:28→23:31)
--- NOTE | 2018-02-19 17:07 | HHI.NPPN ---
Subjective History of Present Illness The patient is a 62 yo [place] male with PMHx of DM, CAD, CVA, BPH, HTN, Colon CA, Anemia, GERD, who was brought into this facility on 02/12/18 after brother found him down on the ground at his home for >18hrs. Unclear if he had lost consciousness or the mechanism of his fall as the patient is currently intubated and sedated. Has been diagnosed with MSSA sepsis, but source is not entirely clear. Has hardware in his right ankle but podiatry does not feel that this is the source. Underwent STEF this AM and cardiology is suspicious for mitral valve vegetation, however, formal report is pending. His admitting SCr was 1.32 and has deteriorated to 4.14 at time of consult. He is 10L to the positive and UOP is marginal. Nephrology has been consulted for management of acute renal failure. Appears preserved renal functions predating this admission, with baseline SCr 0.6-0.8 as per Oct 2017 admission. Interval History Patient remains on ventilatory support. His sisters were by the bedside. Review of Systems General General Remarks Patient intubated on ventilatory support. Objective Data Data 02/19/18 02/20/18 19:00 07:00 Intake Total 254 ml Output Total 3000 ml Balance -2746 ml IV Total 254 ml Hemodialysis 3000 ml Vital Signs Date Time Temp Pulse Resp B/P (MAP) Pulse Ox O2 Delivery O2 Flow Rate FiO2 02/19/18 16:00 87 02/19/18 16:00 40 02/19/18 16:00 102.1 87 23 205/93 (130) 98 02/19/18 14:00 79 02/19/18 13:59 99 40 02/19/18 12:00 99.0 80 22 178/83 (114) 98 02/19/18 12:00 40 02/19/18 12:00 80 02/19/18 11:56 96 40 02/19/18 10:00 84 02/19/18 09:00 40 02/19/18 08:21 95 40 02/19/18 08:00 83 02/19/18 08:00 40 02/19/18 08:00 95 Mechanical Ventilator 40 02/19/18 08:00 98.1 83 18 169/78 (108) 96 02/19/18 06:00 83 02/19/18 04:00 45 02/19/18 04:00 101.3 83 18 141/64 (89) 96 02/19/18 04:00 83 02/19/18 03:22 97 45 02/19/18 02:00 87 02/19/18 00:00 100.4 79 18 152/68 (96) 98 02/19/18 00:00 85 02/19/18 00:00 45 02/18/18 23:32 95 45 02/18/18 22:00 82 02/18/18 20:00 95 Mechanical Ventilator 45 02/18/18 20:00 45 02/18/18 20:00 82 02/18/18 20:00 99.1 81 18 137/63 (87) 96 02/18/18 19:19 96 45 02/18/18 18:00 80 -: 02/19/18 0320 02/19/18 0320 Microbiology 02/19/18 Aerobic Blood Culture, Received Pending 02/19/18 Anaerobic Blood Culture, Received Pending 02/19/18 Aerobic Blood Culture, Received Pending 02/19/18 Anaerobic Blood Culture, Received Pending 02/19/18 Gram Stain - Final, Resulted 02/19/18 Sputum Culture, Resulted Pending 02/19/18 Urine Culture, Received Pending Tubes & Lines: Vas-Cath (RIJ) Physical Exam General Appearance: Comfortable, Obese Eyes Eye Exam: Sclera White Neck Neck Exam: Trachea Midline Pulmonary Resp Exam: Clear Bilaterally, Breath Sounds Equal, Decreased Bases Cardiology CV Exam: Regular, Normal Sinus Rhythm Gastrointestinal/Abdomen GI Exam: Soft, Non-Tender Integumentary Skin Exam: Clear, Warm Extremeties Extremities Exam: Moderate Edema, Pitting Edema (Generalized edema.) Neurologic Neuro Exam: Sedated Assessment/Plan Discussed Condition With: Sibling Problem List: (1) Acute renal failure ICD Codes: N17.9 - Acute kidney failure, unspecified Plan: Etiology multifactorial: elevated CPK indicating rhabdomyolysis, sepsis , contrast exposure (Gadolinium 02/14, iodinated 02/12 x2). Patient tolerated dialysis again today without difficulty. Still has significant fluid retention. We will plan for another dialysis session tomorrow for further ultrafiltration as ordered. Discussed status of the patient's renal function with his sisters by the bedside. He is oliguric but is making some urine. We will order furosemide to try and improve his urinary output. Medications should be adjusted for the patient's renal decline. Avoid nephrotoxic medications such as iodinated contrast dyes and NSAIDs. Avoid gadolinium. (2) Sepsis ICD Codes: A41.9 - Sepsis, unspecified organism Status: Acute Plan: Source? Pending STEF results Abx as per ID (3) Rhabdomyolysis ICD Codes: M62.82 - Rhabdomyolysis Status: Acute Plan: Apparent given elevated CPK and urinary sediment. CPK trending down. Continue to monitor. (4) Transaminitis ICD Codes: R74.0 - Nonspecific elevation of levels of transaminase and lactic acid dehydrogenase [LDH] (5) Adrenal nodule ICD Codes: E27.9 - Disorder of adrenal gland, unspecified Plan: Incidentally noted on CT scan. Not pertinent to his admission, but should be followed up on as outpatient Problem Qualifiers (1) Rhabdomyolysis: Qualified Codes: T79.6XXA - Traumatic ischemia of muscle, initial encounter Jeffy Brewer MD Feb 19, 2018 17:07
[2018-02-19] MEDS: FUROSEMIDE 40 MG/4 ML VIAL IV PUSH SCH (17:22)
[2018-02-19] MEDS: DAPTOmycin INJ 800 MG in SODIUM CHLORIDE 0.9% INJ 100 ML IV SCH (21:26)
[2018-02-19] MEDS: AZTREONAM INJ 500 MG in SODIUM CHLORIDE 0.9% INJ 100 ML IV SCH (21:26)
[2018-02-19] MEDS: cloNIDine HCL 0.1 MG TAB PO PRN (21:37)
[2018-02-19] MEDS: MICAFUNGIN INJ 150 MG in SODIUM CHLORIDE 0.9% INJ 100 ML IV SCH (23:01)
[2018-02-20] VITALS (21 sets, daily range): BP systolic 141–175; BP diastolic 67–93; PULSE 57–71; RESP 18–36; TEMP 99.1–102.1; O2SAT 94–100
[2018-02-20] MEDS: ceFAZolin 2 GM/DEX PREMIX 50 ML IV SCH ×2 (00:19→12:48)
[2018-02-20] MEDS: DEXMEDETOMIDINE INJ 1,000 MCG in SODIUM CHLOR 0.9% 250 ML INJ 240 ML IV PRN ×3 (01:52→21:51)
[2018-02-20] MEDS: LABETALOL HCL 100 MG/20 ML VIAL IV PUSH PRN ×2 (01:53→15:14)
[2018-02-20] MEDS: AZTREONAM INJ 500 MG in SODIUM CHLORIDE 0.9% INJ 100 ML IV SCH ×4 (01:53→20:28)
[2018-02-20] MEDS: CHLORHEXIDINE GLUCONATE 2 % 1 PACK (2 CLOTHS) TOP SCH (04:00)
[2018-02-20 04:57] LABS: BASOPHIL # 0.1 TH/MM3 (0-0.2); EOSINOPHIL # 0.1 TH/MM3 (0-0.4); EOSINOPHIL % 0.5 % (0.0-4.0); HEMATOCRIT 34.2 % (39.0-51.0); HEMOGLOBIN 11.4 GM/DL (13.0-17.0); LYMPH % 10.9 % (9.0-44.0); LYMPHOCYTE # 1.4 TH/MM3 (1.0-4.8); MEAN CELL VOLUME 80.6 FL (80.0-100.0); MEAN CORPUSCULAR HGB CONC 33.5 % (32.0-36.0); MEAN PLATELET VOLUME 8.5 FL (7.0-11.0); MONO % 15.5 % (0.0-8.0); MONOCYTE # 1.9 TH/MM3 (0-0.9); NEUT % 72.1 % (16.0-70.0); PLATELET COUNT 240 TH/MM3 (150-450); RED BLOOD COUNT 4.24 MIL/MM3 (4.50-5.90); RED CELL DISTRIBUTION WIDTH 17.4 % (11.6-17.2); WHITE BLOOD COUNT 12.5 TH/MM3 (4.0-11.0)
[2018-02-20 05:21] LABS: ALBUMIN 1.8 GM/DL (3.4-5.0); ALT (GPT) 13 U/L (12-78); AST (GOT) 56 U/L (15-37); BICARBONATE 30.5 MEQ/L (21.0-32.0); BLOOD UREA NITROGEN 55 MG/DL (7-18); CALCIUM 7.9 MG/DL (8.5-10.1); CHLORIDE 96 MEQ/L (98-107); CREATININE 5.45 MG/DL (0.60-1.30); GLOMERULAR FILTRATION RATE 11 ML/MIN (>89); GLUCOSE,RANDOM 309 MG/DL (74-106); SODIUM (NA) 136 MEQ/L (136-145)
[2018-02-20 05:23] LABS: ALKALINE PHOSPHATASE 213 U/L (45-117); TOTAL BILIRUBIN ADULT 0.8 MG/DL (0.2-1.0)
[2018-02-20] MEDS: INSULIN ASPART SUPPLEMENTAL SCALE SQ SCH ×3 (05:49→17:39)
[2018-02-20] MEDS: HEPARIN SODIUM - SQ 10,000 UNITS/ML VIAL SQ SCH ×3 (05:49→21:52)
[2018-02-20] MEDS: PANTOPRAZOLE SODIUM 40 MG VIAL IV PUSH SCH (07:58)
[2018-02-20] MEDS: CHLORHEXIDINE 0.12% (ORAL KIT) 15 ML CUP MT SCH ×2 (07:58→20:00)
[2018-02-20] MEDS: FUROSEMIDE 40 MG/4 ML VIAL IV PUSH SCH (07:58)
[2018-02-20] MEDS: DOCUSATE SODIUM 100 MG/10 ML UDC PO SCH ×2 (07:58→20:28)
[2018-02-20] MEDS: INSULIN DETEMIR 100 UNITS/ML VIAL SQ SCH ×2 (07:59→20:29)
[2018-02-20] MEDS: SENNOSIDES SYRUP 8.8 MG/5 ML CUP PO SCH (09:00)
[2018-02-20] MEDS: ALBUMIN 25% INJ 100 ML IV PRN ×2 (09:22→09:48)
--- NOTE | 2018-02-20 11:32 | HHI.CCPN ---
Subjective Remarks/Hospital Course Hospital Course: This is a 62yM with history of prior stroke, DM, CAD who presents after his brother found him after he fell. He states he was on the floor for > 18 hours. He endorses a week of fatigue, fever, chills. denies any other symptoms. denies chest pain, shortness of breath, nausea, vomiting, constipation, diarrhea. does endorse generalized abdominal pain which is mild. in the ER he was tachycardic and very diaphoretic. he has laboratory evidence of CK 7000, wbc 17k, Cr 1.3, trop 0.8. CT chest/abd/pelvis unremarkable. CT head and c-spine negative for trauma. febrile to 103 in the ER. given 2L NS ivf with improvement in his HR. remainder of ROS negative. 02/13: somewhat improved, feeling slightly better. remains febrile. cultures still pending. repeat lactate pending. HR improving. 02/14: Patient had episodes of temperatures of 103 with diaphoresis tachypnea yesterday. Blood cultures growing staph aureus 4 out of 4. Evaluated by ANGI Otero yesterday. Respiratory status declined overnight and patient was intubated and placed on mechanical ventilation. Currently remains sedated, orally intubated on mechanical ventilation. 02/15: Remains sedated, orally intubated on mechanical ventilation. Cardiology consulted by Dr. Otero to evaluate for STEF for persistent MSSA bacteremia. 02/16: remains very critically ill. persistent + blood cultures for MSSA. STEF still pending. Cr doubled overnight again despite +10L in last 48h. no improvement at all, and all organ systems are worse. no implantable devices. central lines were placed on admission. 02/17 Patient remains sedated with Diprivan and Fentanyl drip. Afebrile. 02/18 Patient was started on HD yesterday remains sedated and intubated. 02/19 Patient s/p HD yesterday with removal 3L. Spiked fever with T:101.3 at 4am. Sedated and intubated 02/20 No events overnight Patient tolerated CPAP for most of day yesterday. Off Diprivan and Fentanyl drips and now on Precedex drip. s/p HD yesterday with removal 3L. T:102.1 at 8 am. Objective Vital Signs Date Time Temp Pulse Resp B/P (MAP) Pulse Ox O2 Delivery O2 Flow Rate FiO2 02/20/18 08:00 40 02/20/18 08:00 69 02/20/18 08:00 102.1 22 166/74 (104) 97 02/20/18 07:00 Mechanical Ventilator Intake and Output 02/20/18 02/20/18 02/20/18 07:59 15:59 23:59 Intake Total 869 ml 200 ml Output Total 225 ml Balance 644 ml 200 ml Result Diagram: 02/20/183 02/20/18442 Other Results Laboratory Tests Test 02/20/18 04:43 White Blood Count 12.5 TH/MM3 Red Blood Count 4.24 MIL/MM3 Hemoglobin 11.4 GM/DL Hematocrit 34.2 % Mean Corpuscular Volume 80.6 FL Mean Corpuscular Hemoglobin 27.0 PG Mean Corpuscular Hemoglobin Concent 33.5 % Red Cell Distribution Width 17.4 % Platelet Count 240 TH/MM3 Mean Platelet Volume 8.5 FL Neutrophils (%) (Auto) 72.1 % Lymphocytes (%) (Auto) 10.9 % Monocytes (%) (Auto) 15.5 % Eosinophils (%) (Auto) 0.5 % Basophils (%) (Auto) 1.0 % Neutrophils # (Auto) 9.0 TH/MM3 Lymphocytes # (Auto) 1.4 TH/MM3 Monocytes # (Auto) 1.9 TH/MM3 Eosinophils # (Auto) 0.1 TH/MM3 Basophils # (Auto) 0.1 TH/MM3 CBC Comment AUTO DIFF Differential Comment AUTO DIFF CONFIRMED Platelet Estimate NORMAL Platelet Morphology Comment NORMAL Blood Urea Nitrogen 55 MG/DL Creatinine 5.45 MG/DL Random Glucose 309 MG/DL Total Protein 7.0 GM/DL Albumin 1.8 GM/DL Calcium Level 7.9 MG/DL Alkaline Phosphatase 213 U/L Aspartate Amino Transf (AST/SGOT) 56 U/L Alanine Aminotransferase (ALT/SGPT) 13 U/L Total Bilirubin 0.8 MG/DL Sodium Level 136 MEQ/L Potassium Level 4.0 MEQ/L Chloride Level 96 MEQ/L Carbon Dioxide Level 30.5 MEQ/L Anion Gap 10 MEQ/L Estimat Glomerular Filtration Rate 11 ML/MIN Imaging Last Impressions Chest X-Ray 02/19/18 0000 Signed Impressions: CONCLUSION: Slight interval worsening in aeration Liver Ultrasound 6/4/18 0000 Signed Impressions: CONCLUSION: 1. Hepatomegaly with coarsened liver echotexture. No focal liver lesion is heath ntified. 2. Mild splenomegaly. Catheter Placement X-Ray 02/17/18 Signed Impressions: CONCLUSION: 1. Uncomplicated line placement as above. Foot MRI 02/14/18 Signed Impressions: CONCLUSION: 1. Diffuse subcutaneous edema of the foot with mild enhancement along the dors al aspect of the foot. This could represent cellulitis. No abscess is identifie d and there are no findings to indicate osteomyelitis. 2. There is some degree of osseous fusion at the tibiotalar joint and there is severe degenerative change at the subtalar joint and talonavicular joint. 3. Old healed fracture of the fifth metatarsal. Foot X-Ray 02/13/18 Signed Impressions: CONCLUSION: 1. There is a transverse fracture through the mid fifth metatarsal. Adjacent p eriosteal reaction is present suggesting that it is subacute or chronic. 2. There has been prior arthrodesis of the subtalar joint and tibiotalar joint s with osseous fusion. Hypertrophic osteophytes are present at the talonavicula r joint. Abdomen X-Ray 02/13/18 Signed Impressions: CONCLUSION: 1. Prominent gaseous distention of the stomach. Patient may benefit from gastr ic decompression. 2. No significant dilatation of the bowel at this time. Head CT 02/12/18 Signed Impressions: CONCLUSION: Chronic small vessel ischemic and atrophic changes. Cervical Spine CT 02/12/18 Signed Impressions: CONCLUSION: Unremarkable study except for slight degenerative spondylosis. CT Angiography 02/12/18 Signed Impressions: CONCLUSION: 1. Possible nodules within the thyroid gland mainly on the right side. 2. Slight fatty liver. 3. No definite pulmonary embolus. Abdomen/Pelvis CT 02/12/18 Signed Impressions: CONCLUSION: 1. Slight fatty liver. 2. Probable left adrenal adenoma. Objective Remarks GENERAL: Patient is 62 yo intubated and sedated SKIN: Warm and dry. HEAD: Normocephalic. EYES: No scleral icterus. No injection or drainage. NECK: Supple, trachea midline. No JVD or lymphadenopathy. CARDIOVASCULAR: Regular rate and rhythm without murmurs, gallops, or rubs. RESPIRATORY: Breath sounds equal bilaterally. No accessory muscle use. GASTROINTESTINAL: Abdomen soft, non-tender, nondistended. MUSCULOSKELETAL: No cyanosis, or edema. Neuro: Intubated. A/P Assessment and Plan Neuro: On Precedex drip to facilitate with weaning trials Monitor neuro status. CT brain 02/12: Chronic small vessel ischemic changes Pulm: VDRF Continue with vent support keep sats >92% Bronchodilators, ICU vent bundle. SBT daily as sahara CV: Type II NSTEMI, Elevated troponin, likely secondary to demand ischemia - CT pulmonary angiogram negative for PE. Place on Lopressor 25mg Q12 Monitor HR and BP keep MAP>65mmHg Lactic acid 2.8 on 02/13 STEF 02/16: EF 55-60%, grade I diastolic dysfunction. Small mobile echodensity is noted on the subvalvular apparatus of the posterior mitral valve leaflet. ?small vegetation, sclerosis, or partial chordae tendineae rupture. Cards signed off : ARF Rhabdo Monitor renal function, I/O's, avoid nephrotoxins HD initiated 02/17 s/p HD yesterday with removal 3L. Cr:5.[address] Brewer GI: Elevated LFT's ( trending down) On tube feeds- Nepro with goal rate 40ml/hr On Protonix 40mg daily for GI prophylaxis Monitor LFT's, CT abd/pelvis 02/12: Slight fatty liver Hep B,C non reactive US liver: Hepatomegaly with coarsened liver echotexture. No focal liver lesion is identified. Mild splenomegaly ID Staph bacteremia - source LE cellulitis? - MRI bilateral feet: negative for osteo - podiatry consult -ID consult Dr. Otero -Continue abx per ID (Ancef, Teflaro) monitor for signs of infections ( Fever, WBC) Pancultured 02/18 ( Blood, sputum, Urine) Follow up on BC from 02/17: NGTD - blood cultures: 02/12: 4/4 bottles MSSA 02/13: 2/4 bottles MSSA 02/15: 1/4 bottles MSSA - sputum culture: NGTD Heme: Anemia Thrombocytopenia Monitor CBC Endo: Hyperglycemia Diabetes Mellitus, type 2 - SSI med scale, q6h, increase Levemir 14u Q12 Prophylaxis SCDs SQH Protonix Lines: Right IJ vascath placed 02/17 by IR Critical care time: 30 minutes, exclusive of separately billable procedures. Apolinar Munson MD 7, 2018 11:32
[2018-02-20] MEDS: guaiFENesin E.R. 600 MG TAB PO SCH ×2 (12:49→20:29)
[2018-02-20] MEDS: METOPROLOL TARTRATE 25 MG TAB PO SCH ×2 (12:49→20:28)
--- NOTE | 2018-02-20 12:58 | HHI.NPPN ---
Subjective History of Present Illness The patient is a 62 yo [place] male with PMHx of DM, CAD, CVA, BPH, HTN, Colon CA, Anemia, GERD, who was brought into this facility on 02/12/18 after brother found him down on the ground at his home for >18hrs. Unclear if he had lost consciousness or the mechanism of his fall as the patient is currently intubated and sedated. Has been diagnosed with MSSA sepsis, but source is not entirely clear. Has hardware in his right ankle but podiatry does not feel that this is the source. Underwent STEF this AM and cardiology is suspicious for mitral valve vegetation, however, formal report is pending. His admitting SCr was 1.32 and has deteriorated to 4.14 at time of consult. He is 10L to the positive and UOP is marginal. Nephrology has been consulted for management of acute renal failure. Appears preserved renal functions predating this admission, with baseline SCr 0.6-0.8 as per Oct 2017 admission. Interval History Patient remains on ventilatory support. Still oliguric. Nonverbal. Review of Systems General General Remarks Patient intubated on ventilatory support. Objective Data Data 02/20/18 02/21/18 19:00 07:00 Intake Total 200 ml Output Total 3500 ml Balance -3300 ml IV Total 200 ml Hemodialysis 3500 ml Vital Signs Date Time Temp Pulse Resp B/P (MAP) Pulse Ox O2 Delivery O2 Flow Rate FiO2 02/20/18 11:32 100 40 02/20/18 08:00 40 02/20/18 08:00 69 02/20/18 08:00 102.1 69 22 166/74 (104) 97 02/20/18 07:29 100 40 02/20/18 07:00 98 Mechanical Ventilator 40 02/20/18 06:00 68 02/20/18 04:30 98 40 02/20/18 04:00 100.0 70 23 169/76 (107) 98 02/20/18 04:00 70 02/20/18 04:00 40 02/20/18 02:00 69 02/20/18 01:30 99 40 02/20/18 00:00 71 02/20/18 00:00 99.4 71 23 171/79 (109) 98 02/20/18 00:00 40 02/19/18 22:17 40 02/19/18 22:17 99 40 02/19/18 22:00 99 Mechanical Ventilator 40 02/19/18 22:00 81 02/19/18 22:00 40 02/19/18 20:00 73 02/19/18 20:00 100 Mechanical Ventilator 40 02/19/18 20:00 99.7 73 26 183/84 (117) 100 02/19/18 20:00 40 02/19/18 18:00 80 02/19/18 16:00 87 02/19/18 16:00 40 02/19/18 16:00 102.1 87 23 205/93 (130) 98 02/19/18 14:00 79 02/19/18 13:59 99 40 -: 02/20/18 0443 02/20/18 0443 Tubes & Lines: Vas-Cath (RIJ) Physical Exam General Appearance: Comfortable, Obese Eyes Eye Exam: Sclera White Neck Neck Exam: Trachea Midline Pulmonary Resp Exam: Clear Bilaterally, Breath Sounds Equal, Decreased Bases Cardiology CV Exam: Regular, Normal Sinus Rhythm Gastrointestinal/Abdomen GI Exam: Soft, Non-Tender Integumentary Skin Exam: Clear, Warm Extremeties Extremities Exam: Moderate Edema (1-2+ pitting edema extremities.), Pitting Edema (Generalized edema.) Neurologic Neuro Exam: Sedated Assessment/Plan Problem List: (1) Acute renal failure ICD Codes: N17.9 - Acute kidney failure, unspecified Plan: Etiology multifactorial: elevated CPK indicating rhabdomyolysis, sepsis , contrast exposure (Gadolinium 02/14, iodinated 02/12 x2). Patient tolerated dialysis again today without difficulty. Still has significant fluid retention. We will plan for another dialysis session tomorrow for further ultrafiltration as ordered. Discussed status of the patient's renal function with his sisters by the bedside. He tolerated his dialysis session today and his volume status is improved significantly. Still has fluid retention however. Will proceed with another dialysis session tomorrow to further improve volume status.. Medications should be adjusted for the patient's renal decline. Avoid nephrotoxic medications such as iodinated contrast dyes and NSAIDs. Avoid gadolinium. (2) Sepsis ICD Codes: A41.9 - Sepsis, unspecified organism Status: Acute Plan: Source? Pending STEF results Abx as per ID (3) Rhabdomyolysis ICD Codes: M62.82 - Rhabdomyolysis Status: Acute Plan: Apparent given elevated CPK and urinary sediment. CPK trending down. Continue to monitor. (4) Transaminitis ICD Codes: R74.0 - Nonspecific elevation of levels of transaminase and lactic acid dehydrogenase [LDH] (5) Adrenal nodule ICD Codes: E27.9 - Disorder of adrenal gland, unspecified Plan: Incidentally noted on CT scan. Not pertinent to his admission, but should be followed up on as outpatient Problem Qualifiers (1) Rhabdomyolysis: Qualified Codes: T79.6XXA - Traumatic ischemia of muscle, initial encounter Jeffy Brewer MD Feb 20, 2018 12:58
[2018-02-20] MEDS: cloNIDine HCL 0.1 MG TAB PO PRN (18:15)
--- NOTE | 2018-02-20 21:48 | HHI.IDPN ---
Subjective Subjective Remarks Pt ia having fever up to 102 F remains on vent + [id number] off pressors stooling No rash No diarrhea n Hemodialysis. azactam, micafungin dapto added on 02/19 Antibiotics ancef iv azactam, micafungin dapto Lines PIVs look ok Past Medical History Past Medical History Diabetes Hyperlipidemia Chronic pain syndrome bilateral lower extremity ulcers BPH Hypertension Colon cancer s/p partial colectomy prior NSTEMI severe 2-vessel CAD managed medically old RBBB prior GI bleed anemia secondary to GI bleeding Arthritis CHF, unknown type GERD Past Surgical History partial colectomy skin grafts to right ankle left ankle surgery CABG Allergies: Coded Allergies: No Known Allergies (Unverified , 10/21/17) Objective . Vital Signs Date Time Temp Pulse Resp B/P (MAP) Pulse Ox O2 Delivery O2 Flow Rate FiO2 02/20/18 19:48 99 40 02/20/18 18:00 64 02/20/18 17:07 99 40 02/20/18 16:00 40 02/20/18 16:00 100.1 64 25 173/79 (110) 99 02/20/18 16:00 64 02/20/18 14:15 40 02/20/18 14:00 59 02/20/18 12:00 57 02/20/18 12:00 40 02/20/18 12:00 99.1 57 24 143/67 (92) 100 02/20/18 11:32 100 40 02/20/18 10:00 63 02/20/18 08:00 40 02/20/18 08:00 69 02/20/18 08:00 102.1 69 22 166/74 (104) 97 02/20/18 07:29 100 40 02/20/18 07:00 98 Mechanical Ventilator 40 02/20/18 06:00 68 02/20/18 04:30 98 40 02/20/18 04:00 100.0 70 23 169/76 (107) 98 02/20/18 04:00 70 02/20/18 04:00 40 02/20/18 02:00 69 02/20/18 01:30 99 40 02/20/18 00:00 71 02/20/18 00:00 99.4 71 23 171/79 (109) 98 02/20/18 00:00 40 6/6/18 22:17 40 02/19/18 22:17 99 40 02/19/18 22:00 99 Mechanical Ventilator 40 02/19/18 22:00 81 02/19/18 22:00 40 02/20/18 02/20/18 02/21/18 15:00 23:00 07:00 Intake Total 450 ml 634 ml Output Total 3500 ml 150 ml Balance -3050 ml 484 ml IV Total 450 ml 150 ml Tube Feeding 484 ml Output Urine Total 150 ml Hemodialysis 3500 ml . Laboratory Tests Test 02/19/18 03:20 02/20/18 04:43 White Blood Count 8.1 TH/MM3 12.5 TH/MM3 Red Blood Count 4.03 MIL/MM3 4.24 MIL/MM3 Hemoglobin 11.2 GM/DL 11.4 GM/DL Hematocrit 33.0 % 34.2 % Mean Corpuscular Volume 81.8 FL 80.6 FL Mean Corpuscular Hemoglobin 27.7 PG 27.0 PG Mean Corpuscular Hemoglobin Concent 33.8 % 33.5 % Red Cell Distribution Width 18.0 % 17.4 % Platelet Count 210 TH/MM3 240 TH/MM3 Mean Platelet Volume 9.4 FL 8.5 FL Neutrophils (%) (Auto) 67.5 % 72.1 % Lymphocytes (%) (Auto) 11.6 % 10.9 % Monocytes (%) (Auto) 17.5 % 15.5 % Eosinophils (%) (Auto) 2.8 % 0.5 % Basophils (%) (Auto) 0.6 % 1.0 % Neutrophils # (Auto) 5.5 TH/MM3 9.0 TH/MM3 Lymphocytes # (Auto) 0.9 TH/MM3 1.4 TH/MM3 Monocytes # (Auto) 1.4 TH/MM3 1.9 TH/MM3 Eosinophils # (Auto) 0.2 TH/MM3 0.1 TH/MM3 Basophils # (Auto) 0.1 TH/MM3 0.1 TH/MM3 CBC Comment AUTO DIFF AUTO DIFF Differential Comment AUTO DIFF CONFIRMED AUTO DIFF CONFIRMED Platelet Estimate NORMAL NORMAL Platelet Morphology Comment ENLARGED NORMAL Tear Drop Cells 1+ Laboratory Tests Test 02/19/18 03:20 02/20/18 04:43 Blood Urea Nitrogen 53 MG/DL 55 MG/DL Creatinine 5.47 MG/DL 5.45 MG/DL Random Glucose 238 MG/DL 309 MG/DL Total Protein 6.7 GM/DL 7.0 GM/DL Albumin 1.7 GM/DL 1.8 GM/DL Calcium Level 7.6 MG/DL 7.9 MG/DL Phosphorus Level 5.3 MG/DL Alkaline Phosphatase 209 U/L 213 U/L Aspartate Amino Transf (AST/SGOT) 78 U/L 56 U/L Alanine Aminotransferase (ALT/SGPT) 31 U/L 13 U/L Total Bilirubin 1.2 MG/DL 0.8 MG/DL Sodium Level 135 MEQ/L 136 MEQ/L Potassium Level 4.3 MEQ/L 4.0 MEQ/L Chloride Level 94 MEQ/L 96 MEQ/L Carbon Dioxide Level 30.2 MEQ/L 30.5 MEQ/L Anion Gap 11 MEQ/L 10 MEQ/L Estimat Glomerular Filtration Rate 11 ML/MIN 11 ML/MIN Microbiology Date/Time Source Procedure Growth Status 02/19/18 09:03 Blood Peripheral Aerobic Blood Culture - Preliminary NO GROWTH IN 1 DAY Resulted 02/19/18 09:03 Blood Peripheral Anaerobic Blood Culture - Preliminary NO GROWTH IN 1 DAY Resulted 02/19/18 08:58 Blood Peripheral Aerobic Blood Culture - Preliminary NO GROWTH IN 1 DAY Resulted 02/19/18 08:58 Blood Peripheral Anaerobic Blood Culture - Preliminary NO GROWTH IN 1 DAY Resulted 02/19/18 08:29 Sputum Endotracheal Gram Stain - Final Resulted 02/19/18 08:29 Sputum Endotracheal Sputum Culture - Preliminary RARE GROWTH NORMAL RESPIRATORY DREW ... Resulted 02/19/18 08:30 Urine Catheterized Urine Urine Culture - Preliminary NO GROWTH IN 24 HOURS. Resulted Imaging Last Impressions Chest X-Ray 02/19/18 0000 Signed Impressions: CONCLUSION: Slight interval worsening in aeration Liver Ultrasound 02/17/18 Signed Impressions: CONCLUSION: 1. Hepatomegaly with coarsened liver echotexture. No focal liver lesion is heath ntified. 2. Mild splenomegaly. Catheter Placement X-Ray 02/17/18 Signed Impressions: CONCLUSION: 1. Uncomplicated line placement as above. Foot MRI 02/14/18 Signed Impressions: CONCLUSION: 1. Diffuse subcutaneous edema of the foot with mild enhancement along the dors al aspect of the foot. This could represent cellulitis. No abscess is identifie d and there are no findings to indicate osteomyelitis. 2. There is some degree of osseous fusion at the tibiotalar joint and there is severe degenerative change at the subtalar joint and talonavicular joint. 3. Old healed fracture of the fifth metatarsal. Foot X-Ray 02/13/18 Signed Impressions: CONCLUSION: 1. There is a transverse fracture through the mid fifth metatarsal. Adjacent p eriosteal reaction is present suggesting that it is subacute or chronic. 2. There has been prior arthrodesis of the subtalar joint and tibiotalar joint s with osseous fusion. Hypertrophic osteophytes are present at the talonavicula r joint. Abdomen X-Ray 02/13/18 Signed Impressions: CONCLUSION: 1. Prominent gaseous distention of the stomach. Patient may benefit from gastr ic decompression. 2. No significant dilatation of the bowel at this time. Head CT 02/12/18 Signed Impressions: CONCLUSION: Chronic small vessel ischemic and atrophic changes. Cervical Spine CT 02/12/18 Signed Impressions: CONCLUSION: Unremarkable study except for slight degenerative spondylosis. CT Angiography 02/12/18 Signed Impressions: CONCLUSION: 1. Possible nodules within the thyroid gland mainly on the right side. 2. Slight fatty liver. 3. No definite pulmonary embolus. Abdomen/Pelvis CT 02/12/18 Signed Impressions: CONCLUSION: 1. Slight fatty liver. 2. Probable left adrenal adenoma. Physical Exam CONSTITUTIONAL/GENERAL: This is a morbidly obese patient, intubated TUBES/LINES/DRAINS: SKIN: No jaundice, rashes, or lesions. Skin temperature appropriate. HEAD: Atraumatic. Normocephalic. EYES: Pupils equal and round and reactive. No scleral icterus. No injection or drainage. Fundi not examined. ENT: Intubated. NECK: Trachea midline. Supple, nontender. No palpable thyroid enlargement or nodularity. CARDIOVASCULAR: RRR. No murmurs, rubs or gallops RESPIRATORY/CHEST: Symmetric, unlabored respirations. Clear to auscultation. Breath sounds equal bilaterally. No wheezes, rales, or rhonchi. GASTROINTESTINAL: Abdomen tight very distended and tympanic mainly in LUQ area GENITOURINARY: Without palpable bladder distension. Charlton catheter in place with small amount of urine MUSCULOSKELETAL: Extremities without clubbing, cyanosis, Marked generalysed edema. Bilateral LE erythema with induration noted. + chronic edema present + some erythema more prominent on the L ankle NEUROLOGICAL: sedated. On vent PSYCHIATRIC:unable to assess Assessment & Plan Remarks Severe Sepsis present on admission Mitral valve endocarditis, MSSA MSSA high grade bacteremia. Bilateral LE cellulitis. Ho Rt foot hardware infection MRI w/o e/o osteomyelitis in either feet acute metabolic encephalopathy:sepsis, metabolic. acute resp failure on vent. acute renal failure oliguric: sepsis, meds oxacillin, vanco etc. May end up needing HD. CAD s/p CABG ARF with oliguria and fluid overload : no e/o interstitial nephritis - nephrology following, On HD Persistent fever. Source not apparent for now Ileus Recs: cont Ancef IV q8hrs equivalent. cont azactam, micafunfgin, dapto for now will adjust abx per P blood clx dw Lois Mccormack MD Feb 20, 2018 21:48
[2018-02-20] MEDS: MICAFUNGIN INJ 150 MG in SODIUM CHLORIDE 0.9% INJ 100 ML IV SCH (21:51)
[2018-02-20] MEDS ORDERED: RESP: ALBUTEROL 2.5 MG/3 ML NEB (PRN) NEB (22:00)
--- NOTE | 2018-02-20 22:27 | RADRPT ---
EXAM DATE: 02/20/2018 10:21 PM EDT AGE/SEX: 62 years / Male INDICATIONS: Abdominal distention. CLINICAL DATA: This is the patient's subsequent encounter. Patient reports that signs and symptoms h ave been present for 3 days and indicates a pain score of Nonresponsive. MEDICAL/SURGICAL HISTORY: Carcinoma, colon. Gastroesophageal reflux disease. Congestive heart failure. Hypertension. Ulcer. Arthritis. Diabetic. Cholecystectomy. Colon resection. COMPARISON: [facility] – [place], ABDOMEN KUB ONLY, 02/13/2018. . FINDINGS: 3 supine frontal views of the abdomen demonstrate marked gaseous distention of the stomach. Nasogast robert tube is present with distal tip in the gastric antrum region. There is air within small and large bowel in a nonobstructive pattern. No organomegaly is appreciated. No concerning calcifications are seen. The bones demonstrate no acute abnormality. CONCLUSION: Marked gaseous distention of the stomach. Nasogastric tube is present but presumably not connected to suction. Otherwise, no acute finding is identified. Electronically signed by: Gilmar Knox MD 02/20/2018 10:26 PM EDT
[2018-02-20] MEDS: RESP: ALBUTEROL 2.5 MG/IPRATROPIUM 0.5 MG NEB (SCH) NEB (22:51)
[2018-02-21] VITALS (26 sets, daily range): BP systolic 135–178; BP diastolic 61–81; PULSE 55–70; RESP 13–26; TEMP 98.7–101.6; O2SAT 95–100
[2018-02-21] MEDS: ACETAMINOPHEN 325 MG TAB PO PRN ×3 (00:57→21:20)
[2018-02-21] MEDS: ceFAZolin 2 GM/DEX PREMIX 50 ML IV SCH ×2 (00:57→12:00)
[2018-02-21] MEDS: INSULIN ASPART SUPPLEMENTAL SCALE SQ SCH ×2 (00:58→05:38)
[2018-02-21] MEDS: RESP: ALBUTEROL 2.5 MG/IPRATROPIUM 0.5 MG NEB (SCH) NEB ×4 (03:04→19:35)
[2018-02-21] MEDS: AZTREONAM INJ 500 MG in SODIUM CHLORIDE 0.9% INJ 100 ML IV SCH ×4 (04:34→21:15)
[2018-02-21] MEDS: CHLORHEXIDINE GLUCONATE 2 % 1 PACK (2 CLOTHS) TOP SCH (04:35)
[2018-02-21] MEDS: DEXMEDETOMIDINE INJ 1,000 MCG in SODIUM CHLOR 0.9% 250 ML INJ 240 ML IV PRN ×3 (05:15→23:14)
[2018-02-21 06:24] LABS: AUTOMATED NEUTROPHIL # 9.8 TH/MM3 (1.8-7.7); BASOPHIL # 0.1 TH/MM3 (0-0.2); BASOPHIL % 0.7 % (0.0-2.0); EOSINOPHIL # 0.2 TH/MM3 (0-0.4); EOSINOPHIL % 1.8 % (0.0-4.0); HEMOGLOBIN 10.9 GM/DL (13.0-17.0); LYMPH % 12.2 % (9.0-44.0); LYMPHOCYTE # 1.6 TH/MM3 (1.0-4.8); MEAN CELL VOLUME 81.8 FL (80.0-100.0); MEAN PLATELET VOLUME 8.9 FL (7.0-11.0); MONO % 12.5 % (0.0-8.0); MONOCYTE # 1.7 TH/MM3 (0-0.9); NEUT % 72.8 % (16.0-70.0); PLATELET COUNT 225 TH/MM3 (150-450); RED BLOOD COUNT 4.04 MIL/MM3 (4.50-5.90); RED CELL DISTRIBUTION WIDTH 17.6 % (11.6-17.2); WHITE BLOOD COUNT 13.5 TH/MM3 (4.0-11.0)
[2018-02-21 06:58] LABS: ALBUMIN 2.2 GM/DL (3.4-5.0); ALKALINE PHOSPHATASE 172 U/L (45-117); ALT (GPT) 9 U/L (12-78); AST (GOT) 34 U/L (15-37); BICARBONATE 25.9 MEQ/L (21.0-32.0); BLOOD UREA NITROGEN 68 MG/DL (7-18); CHLORIDE 97 MEQ/L (98-107); CREATININE 5.65 MG/DL (0.60-1.30); GLOMERULAR FILTRATION RATE 10 ML/MIN (>89); GLUCOSE,RANDOM 311 MG/DL (74-106); SODIUM (NA) 136 MEQ/L (136-145); TOTAL BILIRUBIN ADULT 0.6 MG/DL (0.2-1.0); TOTAL PROTEIN 7.1 GM/DL (6.4-8.2)
[2018-02-21] MEDS: PANTOPRAZOLE SODIUM 40 MG VIAL IV PUSH SCH (08:08)
[2018-02-21] MEDS: FUROSEMIDE 40 MG/4 ML VIAL IV PUSH SCH (08:08)
[2018-02-21] MEDS: INSULIN DETEMIR 100 UNITS/ML VIAL SQ SCH ×3 (08:09→21:16)
[2018-02-21] MEDS: CHLORHEXIDINE 0.12% (ORAL KIT) 15 ML CUP MT SCH ×2 (08:16→21:14)
[2018-02-21] MEDS: HEPARIN SODIUM - IV 10,000 UNITS/10 ML VIAL PRN (08:37)
[2018-02-21] MEDS: GENTAMICIN SULFATE 20 MG/2 ML VIAL OTHER PRN (08:37)
[2018-02-21] MEDS: SENNOSIDES SYRUP 8.8 MG/5 ML CUP PO SCH (09:00)
[2018-02-21] MEDS: DOCUSATE SODIUM 100 MG/10 ML UDC PO SCH ×2 (09:00→21:15)
--- NOTE | 2018-02-21 09:56 | HHI.CCPN ---
Subjective Remarks/Hospital Course Hospital Course: This is a 62yM with history of prior stroke, DM, CAD who presents after his brother found him after he fell. He states he was on the floor for > 18 hours. He endorses a week of fatigue, fever, chills. denies any other symptoms. denies chest pain, shortness of breath, nausea, vomiting, constipation, diarrhea. does endorse generalized abdominal pain which is mild. in the ER he was tachycardic and very diaphoretic. he has laboratory evidence of CK 7000, wbc 17k, Cr 1.3, trop 0.8. CT chest/abd/pelvis unremarkable. CT head and c-spine negative for trauma. febrile to 103 in the ER. given 2L NS ivf with improvement in his HR. remainder of ROS negative. 02/13: somewhat improved, feeling slightly better. remains febrile. cultures still pending. repeat lactate pending. HR improving. 02/14: Patient had episodes of temperatures of 103 with diaphoresis tachypnea yesterday. Blood cultures growing staph aureus 4 out of 4. Evaluated by ANGI Otero yesterday. Respiratory status declined overnight and patient was intubated and placed on mechanical ventilation. Currently remains sedated, orally intubated on mechanical ventilation. 02/15: Remains sedated, orally intubated on mechanical ventilation. Cardiology consulted by Dr. Otero to evaluate for STEF for persistent MSSA bacteremia. 02/16: remains very critically ill. persistent + blood cultures for MSSA. STEF still pending. Cr doubled overnight again despite +10L in last 48h. no improvement at all, and all organ systems are worse. no implantable devices. central lines were placed on admission. 02/17 Patient remains sedated with Diprivan and Fentanyl drip. Afebrile. 02/18 Patient was started on HD yesterday remains sedated and intubated. 02/19 Patient s/p HD yesterday with removal 3L. Spiked fever with T:101.3 at 4am. Sedated and intubated 02/20 No events overnight Patient tolerated CPAP for most of day yesterday. Off Diprivan and Fentanyl drips and now on Precedex drip. s/p HD yesterday with removal 3L. T:102.1 at 8 am. 02/21 Patient remains intubated on Precedex drip to facilitate with weaning trials. s/p HD yesterday with removal 3.5L. Had hematuria overnight night placed on CBI now hematuria is clearing. Objective Vital Signs Date Time Temp Pulse Resp B/P (MAP) Pulse Ox O2 Delivery O2 Flow Rate FiO2 02/21/18 08:00 99.1 60 23 167/77 (107) 96 02/21/18 07:30 40 02/20/18 19:00 Mechanical Ventilator Intake and Output 02/21/18 02/21/18 02/22/18 08:00 16:00 00:00 Intake Total 595 ml Output Total 250 ml Balance 345 ml Result Diagram: 02/21/18 0534 02/21/18 0534 Other Results Laboratory Tests Test 02/21/18 05:34 White Blood Count 13.5 TH/MM3 Red Blood Count 4.04 MIL/MM3 Hemoglobin 10.9 GM/DL Hematocrit 33.0 % Mean Corpuscular Volume 81.8 FL Mean Corpuscular Hemoglobin 27.0 PG Mean Corpuscular Hemoglobin Concent 33.0 % Red Cell Distribution Width 17.6 % Platelet Count 225 TH/MM3 Mean Platelet Volume 8.9 FL Neutrophils (%) (Auto) 72.8 % Lymphocytes (%) (Auto) 12.2 % Monocytes (%) (Auto) 12.5 % Eosinophils (%) (Auto) 1.8 % Basophils (%) (Auto) 0.7 % Neutrophils # (Auto) 9.8 TH/MM3 Lymphocytes # (Auto) 1.6 TH/MM3 Monocytes # (Auto) 1.7 TH/MM3 Eosinophils # (Auto) 0.2 TH/MM3 Basophils # (Auto) 0.1 TH/MM3 CBC Comment DIFF FINAL Differential Comment Blood Urea Nitrogen 68 MG/DL Creatinine 5.65 MG/DL Random Glucose 311 MG/DL Total Protein 7.1 GM/DL Albumin 2.2 GM/DL Calcium Level 8.0 MG/DL Alkaline Phosphatase 172 U/L Aspartate Amino Transf (AST/SGOT) 34 U/L Alanine Aminotransferase (ALT/SGPT) 9 U/L Total Bilirubin 0.6 MG/DL Sodium Level 136 MEQ/L Potassium Level 3.9 MEQ/L Chloride Level 97 MEQ/L Carbon Dioxide Level 25.9 MEQ/L Anion Gap 13 MEQ/L Estimat Glomerular Filtration Rate 10 ML/MIN Imaging Last Impressions Abdomen X-Ray 6/7/18 0000 Signed Impressions: CONCLUSION: Marked gaseous distention of the stomach. Nasogastric tube is present but presu mably not connected to suction. Otherwise, no acute finding is identified. Chest X-Ray 02/19/18 Signed Impressions: CONCLUSION: Slight interval worsening in aeration Liver Ultrasound 02/17/18 Signed Impressions: CONCLUSION: 1. Hepatomegaly with coarsened liver echotexture. No focal liver lesion is heath ntified. 2. Mild splenomegaly. Catheter Placement X-Ray 02/17/18 Signed Impressions: CONCLUSION: 1. Uncomplicated line placement as above. Foot MRI 02/14/18 Signed Impressions: CONCLUSION: 1. Diffuse subcutaneous edema of the foot with mild enhancement along the dors al aspect of the foot. This could represent cellulitis. No abscess is identifie d and there are no findings to indicate osteomyelitis. 2. There is some degree of osseous fusion at the tibiotalar joint and there is severe degenerative change at the subtalar joint and talonavicular joint. 3. Old healed fracture of the fifth metatarsal. Foot X-Ray 02/13/18 Signed Impressions: CONCLUSION: 1. There is a transverse fracture through the mid fifth metatarsal. Adjacent p eriosteal reaction is present suggesting that it is subacute or chronic. 2. There has been prior arthrodesis of the subtalar joint and tibiotalar joint s with osseous fusion. Hypertrophic osteophytes are present at the talonavicula r joint. Head CT 02/12/18 Signed Impressions: CONCLUSION: Chronic small vessel ischemic and atrophic changes. Cervical Spine CT 02/12/18 Signed Impressions: CONCLUSION: Unremarkable study except for slight degenerative spondylosis. CT Angiography 02/12/18 Signed Impressions: CONCLUSION: 1. Possible nodules within the thyroid gland mainly on the right side. 2. Slight fatty liver. 3. No definite pulmonary embolus. Abdomen/Pelvis CT 02/12/18 Signed Impressions: CONCLUSION: 1. Slight fatty liver. 2. Probable left adrenal adenoma. Objective Remarks GENERAL: Patient is 62 yo intubated and sedated SKIN: Warm and dry. HEAD: Normocephalic. EYES: No scleral icterus. No injection or drainage. NECK: Supple, trachea midline. No JVD or lymphadenopathy. CARDIOVASCULAR: Regular rate and rhythm without murmurs, gallops, or rubs. RESPIRATORY: Breath sounds equal bilaterally. No accessory muscle use. GASTROINTESTINAL: Abdomen soft, non-tender, nondistended. MUSCULOSKELETAL: No cyanosis, or edema. Neuro: Intubated. A/P Assessment and Plan Neuro: On Precedex drip to facilitate with weaning trials Monitor neuro status. CT brain 02/12: Chronic small vessel ischemic changes Pulm: VDRF Continue with vent support keep sats >92% Bronchodilators, ICU vent bundle. SBT daily as sahara CV: Type II NSTEMI, Elevated troponin, likely secondary to demand ischemia - CT pulmonary angiogram negative for PE. Continue Lopressor 25mg Q12, add Hydralazine 50mg Q7. Monitor HR and BP keep MAP>65mmHg Lactic acid 2.8 on 02/13 STEF 02/16: EF 55-60%, grade I diastolic dysfunction. Small mobile echodensity is noted on the subvalvular apparatus of the posterior mitral valve leaflet. ?small vegetation, sclerosis, or partial chordae tendineae rupture. Cards signed off : ARF Rhabdo Monitor renal function, I/O's, avoid nephrotoxins HD initiated 02/17 s/p HD yesterday with removal 3.5L. Cr:5.[address] Brewer On Lasix 80mg IV daily GI: Elevated LFT's ( trending down) On tube feeds- Nepro with goal rate 40ml/hr On Protonix 40mg daily for GI prophylaxis Monitor LFT's, CT abd/pelvis 02/12: Slight fatty liver Hep B,C non reactive US liver: Hepatomegaly with coarsened liver echotexture. No focal liver lesion is identified. Mild splenomegaly ID Staph bacteremia - source LE cellulitis? - MRI bilateral feet: negative for osteo - podiatry consult -ID consult Dr. Otero -Continue abx per ID (Azactam, Micafungin, Dapto) monitor for signs of infections ( Fever, WBC) Pancultured 02/19 ( Blood, sputum, Urine) 02/19 BC: NGTD 02/17 BC from: NGTD 02/12: 4/4 bottles MSSA 02/13: 2/4 bottles MSSA 02/15: 1/4 bottles MSSA - sputum culture: NGTD Heme: Anemia Thrombocytopenia Monitor CBC Endo: Hyperglycemia Diabetes Mellitus, type 2 - increase SSI high scale, q4h, increase Levemir 18u Q12 Prophylaxis SCDs SQH held for hematuria Protonix Lines: Right IJ vascath placed 6/4 by IR Critical care time: 30 minutes, exclusive of separately billable procedures. Apolinar Munson MD Feb 21, 2018 09:56
[2018-02-21] MEDS ORDERED: GLUCAGON 1 MG/ML VIAL OTHER PRN (10:00)
[2018-02-21] MEDS ORDERED: DEXTROSE 50% IN WATER 50 ML VIAL(D50) IV PUSH PRN (10:00)
[2018-02-21] MEDS: INSULIN NovoLIN REGULAR SUPPLEMENTAL SCALE SQ SCH ×4 (11:58→21:17)
[2018-02-21] MEDS: hydrALAZINE HCL 50 MG TAB PO SCH ×2 (12:00→18:01)
[2018-02-21] MEDS: METOPROLOL TARTRATE 25 MG TAB PO SCH ×2 (12:03→21:15)
[2018-02-21] MEDS: guaiFENesin E.R. 600 MG TAB PO SCH ×2 (12:03→21:00)
--- NOTE | 2018-02-21 14:57 | HHI.NPPN ---
Subjective History of Present Illness The patient is a 62 yo [place] male with PMHx of DM, CAD, CVA, BPH, HTN, Colon CA, Anemia, GERD, who was brought into this facility on 02/12/18 after brother found him down on the ground at his home for >18hrs. Unclear if he had lost consciousness or the mechanism of his fall as the patient is currently intubated and sedated. Has been diagnosed with MSSA sepsis, but source is not entirely clear. Has hardware in his right ankle but podiatry does not feel that this is the source. Underwent STEF this AM and cardiology is suspicious for mitral valve vegetation, however, formal report is pending. His admitting SCr was 1.32 and has deteriorated to 4.14 at time of consult. He is 10L to the positive and UOP is marginal. Nephrology has been consulted for management of acute renal failure. Appears preserved renal functions predating this admission, with baseline SCr 0.6-0.8 as per Oct 2017 admission. Interval History Apparently the patient had an episode of hematuria yesterday. Undergoing bladder irrigation currently. Remains intubated. Review of Systems General General Remarks Patient intubated on ventilatory support. Objective Data Data 02/21/18 02/22/18 19:00 07:00 Output Total 3500 ml Balance -3500 ml Hemodialysis 3500 ml Vital Signs Date Time Temp Pulse Resp B/P (MAP) Pulse Ox O2 Delivery O2 Flow Rate FiO2 02/21/18 14:00 65 02/21/18 12:00 98.7 60 24 141/66 (91) 100 02/21/18 12:00 60 02/21/18 12:00 40 02/21/18 11:04 100 40 02/21/18 10:00 55 02/21/18 08:00 60 02/21/18 08:00 40 02/21/18 08:00 99.1 60 23 167/77 (107) 96 02/21/18 07:30 40 02/21/18 07:30 98 40 02/21/18 07:00 99 Mechanical Ventilator 40 02/21/18 06:00 62 21 163/73 (103) 97 02/21/18 05:00 64 22 158/73 (101) 98 02/21/18 04:16 99 40 02/21/18 04:00 40 02/21/18 04:00 63 13 164/76 (105) 99 02/21/18 03:04 97 40 02/21/18 03:00 65 22 162/75 (104) 98 02/21/18 02:24 65 20 162/74 (103) 99 02/21/18 02:00 64 23 178/81 (113) 100 02/21/18 01:00 100.5 63 26 165/75 (105) 100 02/21/18 00:00 40 02/21/18 00:00 101.4 65 22 158/72 (100) 99 02/20/18 23:00 65 23 166/76 (106) 100 02/20/18 22:51 100 40 02/20/18 22:01 61 36 141/93 (109) 99 02/20/18 22:00 40 02/20/18 21:00 64 18 161/74 (103) 94 02/20/18 20:00 40 02/20/18 20:00 65 02/20/18 20:00 101.6 64 28 175/79 (111) 100 02/20/18 19:48 99 40 02/20/18 19:00 100 Mechanical Ventilator 40 02/20/18 18:00 64 02/20/18 17:07 99 40 02/20/18 16:00 40 02/20/18 16:00 100.1 64 25 173/79 (110) 99 02/20/18 16:00 64 -: 02/21/18 0534 02/21/18 0534 Tubes & Lines: Vas-Cath ([facility]) Physical Exam General Appearance: Comfortable, Obese Eyes Eye Exam: Sclera White Neck Neck Exam: Trachea Midline Pulmonary Resp Exam: Clear Bilaterally, Breath Sounds Equal, Decreased Bases Cardiology CV Exam: Regular, Normal Sinus Rhythm Gastrointestinal/Abdomen GI Exam: Soft, Non-Tender Integumentary Skin Exam: Clear, Warm Extremeties Extremities Exam: Moderate Edema (1-2+ pitting edema extremities.), Pitting Edema (Generalized edema.) Neurologic Neuro Exam: Sedated Assessment/Plan Discussed Condition With: Sibling Problem List: (1) Acute renal failure ICD Codes: N17.9 - Acute kidney failure, unspecified Plan: Etiology multifactorial: elevated CPK indicating rhabdomyolysis, sepsis , contrast exposure (Gadolinium 02/14, iodinated 02/12 x2). Patient tolerated dialysis again today without difficulty. His volume status is still not optimal. Dialysis again for further fluid removal. No evidence of significant renal recovery at this time as discussed with his sisters by the bedside. Medications should be adjusted for the patient's renal decline. Avoid nephrotoxic medications such as iodinated contrast dyes and NSAIDs. Avoid gadolinium. (2) Sepsis ICD Codes: A41.9 - Sepsis, unspecified organism Status: Acute Plan: Source? Pending STEF results Abx as per ID (3) Rhabdomyolysis ICD Codes: M62.82 - Rhabdomyolysis Status: Acute Plan: Apparent given elevated CPK and urinary sediment. CPK trending down. Continue to monitor. (4) Adrenal nodule ICD Codes: E27.9 - Disorder of adrenal gland, unspecified Plan: Incidentally noted on CT scan. 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 Blood cultures negative however patient is still spiking temperatures. Problem Qualifiers (1) Rhabdomyolysis: Qualified Codes: T79.6XXA - Traumatic ischemia of muscle, initial encounter Jeffy Brewer MD Feb 21, 2018 14:57
[2018-02-21] MEDS: DAPTOmycin INJ 800 MG in SODIUM CHLORIDE 0.9% INJ 100 ML IV SCH (21:14)
[2018-02-21] MEDS: MICAFUNGIN INJ 150 MG in SODIUM CHLORIDE 0.9% INJ 100 ML IV SCH (21:16)
[2018-02-22] VITALS (35 sets, daily range): BP systolic 99–186; BP diastolic 56–84; PULSE 63–84; RESP 19–32; TEMP 98.5–101.2; O2SAT 97–100
[2018-02-22] MEDS: ceFAZolin 2 GM/DEX PREMIX 50 ML IV SCH ×2 (00:15→13:48)
[2018-02-22] MEDS: HYDROmorphone HCL PF 0.5 MG/0.5 ML SYRINGE IV PUSH PRN ×2 (00:44→04:30)
[2018-02-22] MEDS: INSULIN NovoLIN REGULAR SUPPLEMENTAL SCALE SQ SCH ×6 (01:58→21:37)
[2018-02-22] MEDS: hydrALAZINE HCL 50 MG TAB PO SCH ×2 (01:58→08:54)
[2018-02-22] MEDS: RESP: ALBUTEROL 2.5 MG/IPRATROPIUM 0.5 MG NEB (SCH) NEB ×4 (03:07→21:27)
[2018-02-22] MEDS: CHLORHEXIDINE GLUCONATE 2 % 1 PACK (2 CLOTHS) TOP SCH (04:00)
--- NOTE | 2018-02-22 04:13 | RADRPT ---
EXAM DATE: 02/22/2018 3:51 AM EDT AGE/SEX: 62 years / Male INDICATIONS: Shortness of breath, possible pulmonary disease. CLINICAL DATA: This is the patient's subsequent encounter. Patient reports that signs and symptoms h ave been present for 4 - 6 days and indicates a pain score of Nonresponsive. MEDICAL/SURGICAL HISTORY: . Carcinoma, colon. Gastroesophageal reflux disease. Congestive heart failure. Hypertension. Ulcer. Arthritis. Diabetic. Cholecystectomy. Colon resection. COMPARISON: [facility] [place], CHEST SINGLE AP, 02/19/2018. . FINDINGS: Endotracheal tube in good position. NG enters stomach. Right central line in superior vena cava. Mild basilar airspace disease. Cardiomegaly. CONCLUSION: Mild basilar opacity is slightly improved since February 19. Endotracheal tube, nasogastric tube and right central line unchanged. Electronically signed by: Clinton Wilkinson MD 02/22/2018 4:12 AM EDT
[2018-02-22] MEDS: AZTREONAM INJ 500 MG in SODIUM CHLORIDE 0.9% INJ 100 ML IV SCH ×3 (04:29→15:39)
[2018-02-22 05:18] LABS: AUTOMATED NEUTROPHIL # 15.7 TH/MM3 (1.8-7.7); BASOPHIL # 0.1 TH/MM3 (0-0.2); BASOPHIL % 0.4 % (0.0-2.0); EOSINOPHIL # 0.4 TH/MM3 (0-0.4); EOSINOPHIL % 1.7 % (0.0-4.0); HEMATOCRIT 39.1 % (39.0-51.0); HEMOGLOBIN 12.9 GM/DL (13.0-17.0); LYMPH % 12.5 % (9.0-44.0); LYMPHOCYTE # 2.7 TH/MM3 (1.0-4.8); MEAN CELL VOLUME 82.2 FL (80.0-100.0); MEAN CORPUSCULAR HEMOGLOBIN 27.1 PG (27.0-34.0); MEAN PLATELET VOLUME 8.4 FL (7.0-11.0); MONO % 12.6 % (0.0-8.0); MONOCYTE # 2.7 TH/MM3 (0-0.9); NEUT % 72.8 % (16.0-70.0); PLATELET COUNT 214 TH/MM3 (150-450); RED BLOOD COUNT 4.75 MIL/MM3 (4.50-5.90); RED CELL DISTRIBUTION WIDTH 17.1 % (11.6-17.2); WHITE BLOOD COUNT 21.5 TH/MM3 (4.0-11.0)
[2018-02-22] MEDS: ACETAMINOPHEN 325 MG TAB PO PRN (05:22)
[2018-02-22 06:02] LABS: ALBUMIN 2.1 GM/DL (3.4-5.0); ALKALINE PHOSPHATASE 163 U/L (45-117); ALT (GPT) 10 U/L (12-78); AST (GOT) 40 U/L (15-37); BICARBONATE 21.9 MEQ/L (21.0-32.0); BLOOD UREA NITROGEN 64 MG/DL (7-18); CALCIUM 8.2 MG/DL (8.5-10.1); CHLORIDE 100 MEQ/L (98-107); CREATININE 5.59 MG/DL (0.60-1.30); GLOMERULAR FILTRATION RATE 10 ML/MIN (>89); GLUCOSE,RANDOM 170 MG/DL (74-106); SODIUM (NA) 137 MEQ/L (136-145); TOTAL BILIRUBIN ADULT 0.5 MG/DL (0.2-1.0); TOTAL PROTEIN 7.6 GM/DL (6.4-8.2)
[2018-02-22] MEDS: DEXMEDETOMIDINE INJ 1,000 MCG in SODIUM CHLOR 0.9% 250 ML INJ 240 ML IV PRN ×3 (06:30→20:42)
[2018-02-22 06:51] LABS: BANDS 3 % (0-6); LYMPHOCYTES 9 % (9-44); MONOCYTES 8 % (0-8); MYELOCYTES 1 % (0-0); NEUTROPHIL # MANUAL DIFF 17.8 TH/MM3 (1.8-7.7); POLYS (SEG NEUTROPHILS) 79 % (16-70); TOXIC GRANULATION 2+ (NORMAL)
[2018-02-22] MEDS: CHLORHEXIDINE 0.12% (ORAL KIT) 15 ML CUP MT SCH ×2 (08:00→20:00)
[2018-02-22] MEDS: DOCUSATE SODIUM 100 MG/10 ML UDC PO SCH ×2 (08:54→20:42)
[2018-02-22] MEDS: guaiFENesin E.R. 600 MG TAB PO SCH (08:54)
[2018-02-22] MEDS: PANTOPRAZOLE SODIUM 40 MG VIAL IV PUSH SCH (08:54)
[2018-02-22] MEDS: METOPROLOL TARTRATE 25 MG TAB PO SCH ×2 (08:55→20:42)
[2018-02-22] MEDS: SENNOSIDES SYRUP 8.8 MG/5 ML CUP PO SCH (08:55)
[2018-02-22] MEDS: FUROSEMIDE 40 MG/4 ML VIAL IV PUSH SCH (08:55)
[2018-02-22] MEDS: INSULIN DETEMIR 100 UNITS/ML VIAL SQ SCH ×2 (08:57→20:46)
[2018-02-22] MEDS: HEPARIN SODIUM - IV 10,000 UNITS/10 ML VIAL PRN (10:29)
[2018-02-22] MEDS: GENTAMICIN SULFATE 20 MG/2 ML VIAL OTHER PRN (10:30)
--- NOTE | 2018-02-22 12:40 | HHI.NPPN ---
Subjective History of Present Illness The patient is a 62 yo [place] male with PMHx of DM, CAD, CVA, BPH, HTN, Colon CA, Anemia, GERD, who was brought into this facility on 02/12/18 after brother found him down on the ground at his home for >18hrs. Unclear if he had lost consciousness or the mechanism of his fall as the patient is currently intubated and sedated. Has been diagnosed with MSSA sepsis, but source is not entirely clear. Has hardware in his right ankle but podiatry does not feel that this is the source. Underwent STEF this AM and cardiology is suspicious for mitral valve vegetation, however, formal report is pending. His admitting SCr was 1.32 and has deteriorated to 4.14 at time of consult. He is 10L to the positive and UOP is marginal. Nephrology has been consulted for management of acute renal failure. Appears preserved renal functions predating this admission, with baseline SCr 0.6-0.8 as per Oct 2017 admission. Interval History The patient was seen during hemodialysis today. His Vas-Cath appear to be working well. Patient nonverbal. Review of Systems General General Remarks Patient intubated on ventilatory support. Objective Data Data 02/22/18 02/23/18 18:59 06:59 Output Total 3500 ml Balance -3500 ml Hemodialysis 3500 ml Vital Signs Date Time Temp Pulse Resp B/P (MAP) Pulse Ox O2 Delivery O2 Flow Rate FiO2 02/22/18 11:00 65 24 134/61 (85) 100 02/22/18 11:00 65 02/22/18 10:45 68 02/22/18 10:45 68 23 138/56 (83) 99 02/22/18 10:30 82 30 170/79 (109) 100 02/22/18 10:30 82 02/22/18 10:15 66 27 171/70 (103) 100 02/22/18 10:15 66 02/22/18 10:05 69 02/22/18 10:05 69 30 174/78 (110) 100 02/22/18 10:00 69 02/22/18 10:00 69 30 176/79 (111) 100 02/22/18 09:00 72 02/22/18 09:00 72 31 177/79 (111) 100 02/22/18 08:01 69 28 186/84 (118) 100 02/22/18 08:01 69 02/22/18 08:00 98.6 71 28 186/84 (118) 100 02/22/18 08:00 71 02/22/18 08:00 40 02/22/18 07:48 40 02/22/18 07:48 97 40 02/22/18 07:00 100 Mechanical Ventilator 02/22/18 06:00 72 22 144/66 (92) 98 02/22/18 05:01 84 32 169/78 (108) 100 02/22/18 04:00 40 02/22/18 04:00 101.2 67 22 149/67 (94) 98 02/22/18 03:08 100 40 02/22/18 03:00 64 29 160/76 (104) 97 02/22/18 02:00 66 19 157/72 (100) 97 02/22/18 01:00 69 27 157/72 (100) 100 02/22/18 00:00 40 02/22/18 00:00 98.6 65 22 150/67 (94) 99 02/21/18 23:36 100 40 02/21/18 23:00 63 19 149/71 (97) 98 02/21/18 22:00 65 21 158/73 (101) 98 02/21/18 21:00 101.1 68 24 146/68 (94) 98 02/21/18 20:00 101.6 69 24 135/61 (85) 96 02/21/18 20:00 70 02/21/18 20:00 40 02/21/18 19:35 100 40 02/21/18 19:00 100 Mechanical Ventilator 40 02/21/18 18:22 100 40 02/21/18 18:00 65 02/21/18 16:00 40 02/21/18 16:00 67 02/21/18 16:00 100.5 67 23 141/65 (90) 95 02/21/18 15:23 100 40 02/21/18 15:20 40 02/21/18 14:00 65 -: 02/22/18 0459 02/22/18 0459 Tubes & Lines: Vas-Cath ([facility]) Physical Exam General Appearance: Comfortable, Obese Eyes Eye Exam: Sclera White Neck Neck Exam: Trachea Midline Pulmonary Resp Exam: Clear Bilaterally, Breath Sounds Equal, Decreased Bases Cardiology CV Exam: Regular, Normal Sinus Rhythm Gastrointestinal/Abdomen GI Exam: Soft, Non-Tender Integumentary Skin Exam: Clear, Warm Extremeties Extremities Exam: Moderate Edema (1-2+ pitting edema extremities.), Pitting Edema (Generalized edema.) Neurologic Neuro Exam: Sedated Assessment/Plan Discussed Condition With: Sibling Problem List: (1) Acute renal failure ICD Codes: N17.9 - Acute kidney failure, unspecified Plan: Etiology multifactorial: elevated CPK indicating rhabdomyolysis, sepsis , contrast exposure (Gadolinium 02/14, iodinated 02/12 x2). Patient tolerating his dialysis session well and was seen during his dialysis treatment today. Tentative dialysis for Saturday depending upon volume status and laboratory results. Urine output still relatively negligible. No evidence of significant renal recovery at this time as discussed with his sisters by the bedside. Medications should be adjusted for the patient's renal decline. Avoid nephrotoxic medications such as iodinated contrast dyes and NSAIDs. Avoid gadolinium. (2) Sepsis ICD Codes: A41.9 - Sepsis, unspecified organism Status: Acute Plan: Source? Pending STEF results Abx as per ID (3) Rhabdomyolysis ICD Codes: M62.82 - Rhabdomyolysis Status: Acute Plan: Apparent given elevated CPK and urinary sediment. CPK trending down. Continue to monitor. (4) Adrenal nodule ICD Codes: E27.9 - Disorder of adrenal gland, unspecified Plan: Incidentally noted on CT scan. 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 Problem Qualifiers (1) Rhabdomyolysis: Qualified Codes: T79.6XXA - Traumatic ischemia of muscle, initial encounter Jeffy Brewer MD Feb 22, 2018 12:40
--- NOTE | 2018-02-22 15:07 | HHI.CCPN ---
Subjective Remarks/Hospital Course Hospital Course: This is a 62yM with history of prior stroke, DM, CAD who presents after his brother found him after he fell. He states he was on the floor for > 18 hours. He endorses a week of fatigue, fever, chills. denies any other symptoms. denies chest pain, shortness of breath, nausea, vomiting, constipation, diarrhea. does endorse generalized abdominal pain which is mild. in the ER he was tachycardic and very diaphoretic. he has laboratory evidence of CK 7000, wbc 17k, Cr 1.3, trop 0.8. CT chest/abd/pelvis unremarkable. CT head and c-spine negative for trauma. febrile to 103 in the ER. given 2L NS ivf with improvement in his HR. remainder of ROS negative. 02/13: somewhat improved, feeling slightly better. remains febrile. cultures still pending. repeat lactate pending. HR improving. 02/14: Patient had episodes of temperatures of 103 with diaphoresis tachypnea yesterday. Blood cultures growing staph aureus 4 out of 4. Evaluated by ANGI Otero yesterday. Respiratory status declined overnight and patient was intubated and placed on mechanical ventilation. Currently remains sedated, orally intubated on mechanical ventilation. 02/15: Remains sedated, orally intubated on mechanical ventilation. Cardiology consulted by Dr. Otero to evaluate for STEF for persistent MSSA bacteremia. 02/16: remains very critically ill. persistent + blood cultures for MSSA. STEF still pending. Cr doubled overnight again despite +10L in last 48h. no improvement at all, and all organ systems are worse. no implantable devices. central lines were placed on admission. 02/17 Patient remains sedated with Diprivan and Fentanyl drip. Afebrile. 02/18 Patient was started on HD yesterday remains sedated and intubated. 02/19 Patient s/p HD yesterday with removal 3L. Spiked fever with T:101.3 at 4am. Sedated and intubated 02/20 No events overnight Patient tolerated CPAP for most of day yesterday. Off Diprivan and Fentanyl drips and now on Precedex drip. s/p HD yesterday with removal 3L. T:102.1 at 8 am. 02/21 Patient remains intubated on Precedex drip to facilitate with weaning trials. s/p HD yesterday with removal 3.5L. Had hematuria overnight night placed on CBI now hematuria is clearing. SUBJECTIVE: 02/22: Afebrile. NG tube placed to low wall suction secondary to increasing abdominal distention. Last KUB 02/20 revealed gaseous distention. Will check stat CT abdomen/pelvis with oral contrast Objective Vital Signs Date Time Temp Pulse Resp B/P (MAP) Pulse Ox O2 Delivery O2 Flow Rate FiO2 02/22/18 14:00 63 23 159/72 (101) 100 02/22/18 12:44 40 02/22/18 12:00 100.3 02/22/18 07:00 Mechanical Ventilator Intake and Output 02/22/18 02/22/18 02/23/18 08:00 16:00 00:00 Intake Total 400 ml Output Total 300 ml 3500 ml Balance 100 ml -3500 ml Result Diagram: 02/22/18 0459 02/22/18 0459 Other Results Microbiology Date/Time Source Procedure Growth Status 02/19/18 09:03 Blood Peripheral Aerobic Blood Culture - Preliminary Staphylococcus Species Resulted 02/19/18 09:03 Blood Peripheral Anaerobic Blood Culture - Preliminary NO GROWTH IN 3 DAYS Resulted 02/19/18 08:29 Sputum Endotracheal Gram Stain - Final Complete 02/19/18 08:29 Sputum Endotracheal Sputum Culture - Final RARE GROWTH NORMAL RESPIRATORY DREW Complete 02/19/18 08:30 Urine Catheterized Urine Urine Culture - Final NO GROWTH IN 48 HOURS. Complete Imaging Last Impressions Chest X-Ray 02/22/18 0000 Signed Impressions: CONCLUSION: Mild basilar opacity is slightly improved since February 19. Endotracheal tube, naso gastric tube and right central line unchanged. Abdomen X-Ray 02/20/18 0000 Signed Impressions: CONCLUSION: Marked gaseous distention of the stomach. Nasogastric tube is present but presu mably not connected to suction. Otherwise, no acute finding is identified. Liver Ultrasound 02/17/18 Signed Impressions: CONCLUSION: 1. Hepatomegaly with coarsened liver echotexture. No focal liver lesion is heath ntified. 2. Mild splenomegaly. Catheter Placement X-Ray 02/17/18 Signed Impressions: CONCLUSION: 1. Uncomplicated line placement as above. Foot MRI 02/14/18 Signed Impressions: CONCLUSION: 1. Diffuse subcutaneous edema of the foot with mild enhancement along the dors al aspect of the foot. This could represent cellulitis. No abscess is identifie d and there are no findings to indicate osteomyelitis. 2. There is some degree of osseous fusion at the tibiotalar joint and there is severe degenerative change at the subtalar joint and talonavicular joint. 3. Old healed fracture of the fifth metatarsal. Foot X-Ray 02/13/18 Signed Impressions: CONCLUSION: 1. There is a transverse fracture through the mid fifth metatarsal. Adjacent p eriosteal reaction is present suggesting that it is subacute or chronic. 2. There has been prior arthrodesis of the subtalar joint and tibiotalar joint s with osseous fusion. Hypertrophic osteophytes are present at the talonavicula r joint. Head CT 02/12/18 Signed Impressions: CONCLUSION: Chronic small vessel ischemic and atrophic changes. Cervical Spine CT 02/12/18 Signed Impressions: CONCLUSION: Unremarkable study except for slight degenerative spondylosis. CT Angiography 02/12/18 Signed Impressions: CONCLUSION: 1. Possible nodules within the thyroid gland mainly on the right side. 2. Slight fatty liver. 3. No definite pulmonary embolus. Abdomen/Pelvis CT 02/12/18 Signed Impressions: CONCLUSION: 1. Slight fatty liver. 2. Probable left adrenal adenoma. Objective Remarks GENERAL: Patient is 62 yo male currently resting in bed on dexmedetomidine for sedation SKIN: Warm and dry. No rash HEAD: Normocephalic. EYES: Pupils are about 3 members bilaterally and reactive no scleral icterus. No injection or drainage. NECK: Supple, trachea midline. No JVD or lymphadenopathy. CARDIOVASCULAR: Bradycardic, RR. S1, S2 no S4. Without murmurs, clicks, gallops or rubs RESPIRATORY: Minutes breath sounds the bases. No wheezing. GASTROINTESTINAL: Abdomen soft, non-tender, nondistended. MUSCULOSKELETAL: Trace bilateral lower extremities. Open ears to the anterior shins bilaterally with erythema currently covered in Kerlix Neuro: Intubated. Follows commands on sedation vacation. Moves all 4 extremities spontaneously. Urinary Catheter: Yes Assessment to: Continue Charlton insert reason: Prolonged Immobilization Vascular Central Line Catheter: No Assessment to: Continue A/P Assessment and Plan Neuro/Psych: On dexmedetomidine drip at 1.2 mcg/kg/min for sedation while intubated Goal of RASS -2 Daily sedation vacation Monitor neuro status. CT brain 02/12: Chronic small vessel ischemic changes Acetaminophen 650 mg by 2. every 4 hours as needed fever Pulm: Acute respiratory failure Continue with vent support keep sats >92% Bronchodilators, ICU vent bundle. PRVC ventilation SBT daily as sahara tolerated CPAP trials 4 hours 02/22 CV: Type II NSTEMI, Elevated troponin, likely secondary to demand ischemia Rate 1 diastolic dysfunction/chronic Essential hypertension Hyperlipidemia - CT pulmonary angiogram negative for PE. Continue Lopressor 25mg Q12, add Hydralazine 50mg Q7. Monitor HR and BP keep MAP>65mmHg Lactic acid 2.8 on 02/13 STEF 02/16: EF 55-60%, grade I diastolic dysfunction. Small mobile echodensity is noted on the subvalvular apparatus of the posterior mitral valve leaflet. ?small vegetation, sclerosis, or partial chordae tendineae rupture. Cards signed off Currently on metoprolol tartrate 25 twice daily and and hydralazine 75 mg 3 times daily. And isosorbide mononitrate 100 mg daily home Holding simvastatin 20 mg daily for dyslipidemia resumed clinically indicated Renal/: Acute kidney injury secondary to contrast? Sepsis secondary to staph bacteremia ? Rhabdo -resolving BPH Monitor renal function, I/O's, avoid nephrotoxins HD initiated 02/17 Hemodialysis 02/22 -3.[address] Brewer On furosemide 80mg IV daily Holding tamsulosin 0.4 mg daily. GI: Elevated LFT's ( trending down) On tube feeds- Nepro with goal rate 45ml/hr currently on hold secondary to abdominal distention. Stat CT abdomen/pelvis pending On Protonix 40mg daily for GI prophylaxis Monitor LFT's, CT abd/pelvis 02/12: Slight fatty liver Repeat CT abdomen/pelvis 02/22 pending Hep B,C non reactive US liver: Hepatomegaly with coarsened liver echotexture. No focal liver lesion is identified. Mild splenomegaly ID Staph bacteremia - source LE cellulitis? - MRI bilateral feet: negative for osteo. Positive cellulitis - podiatry consult appreciated -ID consult Dr. Otero -Continue abx per ID (cefazolin, aztreonam micafungin, Dapto) monitor for signs of infections ( Fever, WBC) Pancultured 02/19 ( Blood, sputum, Urine) 02/19 BC: Staph aureus 02/17 BC from: NGTD 02/12: 4 bottles MSSA 02/13: 2 bottles MSSA 02/15: 09/19 bottles MSSA - sputum culture: NGTD Heme: Normocytic anemia Thrombocytopenia Monitor CBC. Follow trend Endo: Hyperglycemia Diabetes Mellitus, type 2 - increase SSI high scale, q4h, increase insulin detemir 18u Q12 Currently on glipizide 5 mg twice daily been sitagliptin 50 mg daily Prophylaxis SCDs SQH held for hematuria Pantoprazole Lines: Right IJ vascath placed 02/17 by IR Critical care time: 30 minutes, exclusive of separately billable procedures. Thomas Ross MD Feb 22, 2018 15:07
[2018-02-22] MEDS ORDERED: DIATRIZOATE MEGLUM/DIATRIZOATE SOD 9 ML CUP PO ONE (16:00)
[2018-02-22] MEDS: hydrALAZINE HCL 25 MG TAB PO SCH (17:04)
--- NOTE | 2018-02-22 18:51 | HHI.IDPN ---
Subjective Subjective Remarks Ptcont to have fever up to 101.6 F remains on vent remains on Hemodialysis. His blood cultures are + again for staph spp Nl resp maite in sputum clx Antibiotics azactam, micafungin dapto added on 02/19 cefazoline Lines PIVs look ok Past Medical History Past Medical History Diabetes Hyperlipidemia Chronic pain syndrome bilateral lower extremity ulcers BPH Hypertension Colon cancer s/p partial colectomy prior NSTEMI severe 2-vessel CAD managed medically old RBBB prior GI bleed anemia secondary to GI bleeding Arthritis CHF, unknown type GERD Past Surgical History partial colectomy skin grafts to right ankle left ankle surgery CABG Allergies: Coded Allergies: No Known Allergies (Unverified , 10/21/17) Objective . Vital Signs Date Time Temp Pulse Resp B/P (MAP) Pulse Ox O2 Delivery O2 Flow Rate FiO2 02/22/18 16:00 64 02/22/18 15:58 99 40 02/22/18 15:00 63 02/22/18 14:00 63 23 159/72 (101) 100 02/22/18 14:00 63 02/22/18 13:00 64 21 149/68 (95) 100 02/22/18 13:00 64 02/22/18 12:45 63 02/22/18 12:45 63 24 113/59 (77) 100 02/22/18 12:44 100 40 02/22/18 12:30 63 02/22/18 12:30 63 25 113/63 (80) 100 02/22/18 12:15 65 27 103/56 (72) 100 02/22/18 12:15 65 02/22/18 12:00 100.3 66 28 99/56 (70) 100 02/22/18 12:00 66 02/22/18 12:00 40 02/22/18 11:00 65 24 134/61 (85) 100 02/22/18 11:00 65 02/22/18 10:45 68 02/22/18 10:45 68 23 138/56 (83) 99 02/22/18 10:30 82 30 170/79 (109) 100 02/22/18 10:30 82 02/22/18 10:15 66 27 171/70 (103) 100 02/22/18 10:15 66 02/22/18 10:05 69 6/9/18 10:05 69 30 174/78 (110) 100 02/22/18 10:00 69 02/22/18 10:00 69 30 176/79 (111) 100 02/22/18 09:00 72 02/22/18 09:00 72 31 177/79 (111) 100 02/22/18 08:01 69 28 186/84 (118) 100 02/22/18 08:01 69 02/22/18 08:00 98.6 71 28 186/84 (118) 100 02/22/18 08:00 71 02/22/18 08:00 40 02/22/18 07:48 40 02/22/18 07:48 97 40 02/22/18 07:00 100 Mechanical Ventilator 02/22/18 06:00 72 22 144/66 (92) 98 02/22/18 05:01 84 32 169/78 (108) 100 02/22/18 04:00 40 02/22/18 04:00 101.2 67 22 149/67 (94) 98 02/22/18 03:08 100 40 02/22/18 03:00 64 29 160/76 (104) 97 02/22/18 02:00 66 19 157/72 (100) 97 02/22/18 01:00 69 27 157/72 (100) 100 02/22/18 00:00 40 02/22/18 00:00 98.6 65 22 150/67 (94) 99 02/21/18 23:36 100 40 02/21/18 23:00 63 19 149/71 (97) 98 02/21/18 22:00 65 21 158/73 (101) 98 02/21/18 21:00 101.1 68 24 146/68 (94) 98 02/21/18 20:00 101.6 69 24 135/61 (85) 96 02/21/18 20:00 70 02/21/18 20:00 40 02/21/18 19:35 100 40 02/21/18 19:00 100 Mechanical Ventilator 40 02/21/18 18:22 100 40 02/22/18 02/22/18 02/23/18 15:00 23:00 07:00 Output Total 3500 ml Balance -3500 ml Hemodialysis 3500 ml . Laboratory Tests Test 02/21/18 05:34 02/22/18 04:59 White Blood Count 13.5 TH/MM3 21.5 TH/MM3 Red Blood Count 4.04 MIL/MM3 4.75 MIL/MM3 Hemoglobin 10.9 GM/DL 12.9 GM/DL Hematocrit 33.0 % 39.1 % Mean Corpuscular Volume 81.8 FL 82.2 FL Mean Corpuscular Hemoglobin 27.0 PG 27.1 PG Mean Corpuscular Hemoglobin Concent 33.0 % 33.0 % Red Cell Distribution Width 17.6 % 17.1 % Platelet Count 225 TH/MM3 214 TH/MM3 Mean Platelet Volume 8.9 FL 8.4 FL Neutrophils (%) (Auto) 72.8 % 72.8 % Lymphocytes (%) (Auto) 12.2 % 12.5 % Monocytes (%) (Auto) 12.5 % 12.6 % Eosinophils (%) (Auto) 1.8 % 1.7 % Basophils (%) (Auto) 0.7 % 0.4 % Neutrophils # (Auto) 9.8 TH/MM3 15.7 TH/MM3 Lymphocytes # (Auto) 1.6 TH/MM3 2.7 TH/MM3 Monocytes # (Auto) 1.7 TH/MM3 2.7 TH/MM3 Eosinophils # (Auto) 0.2 TH/MM3 0.4 TH/MM3 Basophils # (Auto) 0.1 TH/MM3 0.1 TH/MM3 CBC Comment DIFF FINAL AUTO DIFF Differential Comment FINAL DIFF MANUAL Differential Total Cells Counted 100 Neutrophils % (Manual) 79 % Band Neutrophils % 3 % Lymphocytes % 9 % Monocytes % 8 % Neutrophils # (Manual) 17.8 TH/MM3 Myelocytes 1 % Toxic Granulation 2+ Platelet Estimate NORMAL Platelet Morphology Comment NORMAL Hematology Comments Laboratory Tests Test 02/21/18 05:34 02/22/18 04:59 Blood Urea Nitrogen 68 MG/DL 64 MG/DL Creatinine 5.65 MG/DL 5.59 MG/DL Random Glucose 311 MG/DL 170 MG/DL Total Protein 7.1 GM/DL 7.6 GM/DL Albumin 2.2 GM/DL 2.1 GM/DL Calcium Level 8.0 MG/DL 8.2 MG/DL Alkaline Phosphatase 172 U/L 163 U/L Aspartate Amino Transf (AST/SGOT) 34 U/L 40 U/L Alanine Aminotransferase (ALT/SGPT) 9 U/L 10 U/L Total Bilirubin 0.6 MG/DL 0.5 MG/DL Sodium Level 136 MEQ/L 137 MEQ/L Potassium Level 3.9 MEQ/L 4.1 MEQ/L Chloride Level 97 MEQ/L 100 MEQ/L Carbon Dioxide Level 25.9 MEQ/L 21.9 MEQ/L Anion Gap 13 MEQ/L 15 MEQ/L Estimat Glomerular Filtration Rate 10 ML/MIN 10 ML/MIN Imaging Last Impressions Chest X-Ray 02/22/18 Signed Impressions: CONCLUSION: Mild basilar opacity is slightly improved since February 19. Endotracheal tube, naso gastric tube and right central line unchanged. Abdomen X-Ray 02/20/18 Signed Impressions: CONCLUSION: Marked gaseous distention of the stomach. Nasogastric tube is present but presu mably not connected to suction. Otherwise, no acute finding is identified. Liver Ultrasound 02/17/18 Signed Impressions: CONCLUSION: 1. Hepatomegaly with coarsened liver echotexture. No focal liver lesion is heath ntified. 2. Mild splenomegaly. Catheter Placement X-Ray 02/17/18 Signed Impressions: CONCLUSION: 1. Uncomplicated line placement as above. Foot MRI 02/14/18 Signed Impressions: CONCLUSION: 1. Diffuse subcutaneous edema of the foot with mild enhancement along the dors al aspect of the foot. This could represent cellulitis. No abscess is identifie d and there are no findings to indicate osteomyelitis. 2. There is some degree of osseous fusion at the tibiotalar joint and there is severe degenerative change at the subtalar joint and talonavicular joint. 3. Old healed fracture of the fifth metatarsal. Foot X-Ray 02/13/18 Signed Impressions: CONCLUSION: 1. There is a transverse fracture through the mid fifth metatarsal. Adjacent p eriosteal reaction is present suggesting that it is subacute or chronic. 2. There has been prior arthrodesis of the subtalar joint and tibiotalar joint s with osseous fusion. Hypertrophic osteophytes are present at the talonavicula r joint. Head CT 02/12/18 Signed Impressions: CONCLUSION: Chronic small vessel ischemic and atrophic changes. Cervical Spine CT 02/12/18 Signed Impressions: CONCLUSION: Unremarkable study except for slight degenerative spondylosis. CT Angiography 02/12/18 Signed Impressions: CONCLUSION: 1. Possible nodules within the thyroid gland mainly on the right side. 2. Slight fatty liver. 3. No definite pulmonary embolus. Abdomen/Pelvis CT 02/12/18 0000 Signed Impressions: CONCLUSION: 1. Slight fatty liver. 2. Probable left adrenal adenoma. Physical Exam CONSTITUTIONAL/GENERAL: This is a morbidly obese patient, intubated TUBES/LINES/DRAINS: SKIN: No jaundice, rashes, or lesions. Skin temperature appropriate. HEAD: Atraumatic. Normocephalic. EYES: Pupils equal and round and reactive. No scleral icterus. No injection or drainage. Fundi not examined. ENT: Intubated. NECK: Trachea midline. Supple, nontender. No palpable thyroid enlargement or nodularity. CARDIOVASCULAR: RRR. No murmurs, rubs or gallops RESPIRATORY/CHEST: Symmetric, unlabored respirations. Clear to auscultation. Breath sounds equal bilaterally. No wheezes, rales, or rhonchi. GASTROINTESTINAL: Abdomen tight very distended and tympanic mainly in LUQ area GENITOURINARY: Without palpable bladder distension. Charlton catheter in place with small amount of urine MUSCULOSKELETAL: Extremities without clubbing, cyanosis, Marked generalysed edema. Bilateral LE erythema with induration noted. NEUROLOGICAL: sedated. On vent PSYCHIATRIC:unable to assess Assessment & Plan Remarks Severe Sepsis present on admission Mitral valve endocarditis, MSSA MSSA high grade bacteremia. Bilateral LE cellulitis. Ho Rt foot hardware infection MRI w/o e/o osteomyelitis in either feet acute metabolic encephalopathy:sepsis, metabolic. acute resp failure on vent. acute renal failure oliguric: sepsis, meds oxacillin, vanco etc. May end up needing HD. CAD s/p CABG ARF with oliguria and fluid overload : no e/o interstitial nephritis - nephrology following, On HD Persistent fever. Source not apparent for now Ileus - worsening Worsening leukocytosis Recs: cont Ancef IV q8hrs equivalent. dc azactam, micafunfgin, cont dapto for now fu P BC results repeat BC further rec's per final clx chk stool for C.diff KUB might need CT abd/pel will repeat CBC dw Dr Cody rios family @ b/s Lois Otero MD Feb 22, 2018 18:51
--- NOTE | 2018-02-22 20:48 | RADRPT ---
EXAM DATE: 02/22/2018 8:21 PM EDT AGE/SEX: 62 years / Male INDICATIONS: Abdominal distention; possible ileus. CLINICAL DATA: This is the patient's subsequent encounter. Patient reports that signs and symptoms h ave been present for 1 week and indicates a pain score of Nonresponsive. MEDICAL/SURGICAL HISTORY: Cardiovascular disease. Congestive heart failure. Diabetes. GERD, Hypertension, Colon cancer None. RADIATION DOSE: 29.79 CTDI (mGy) ; Patient body habitus COMPARISON: No prior exams available for comparison. TECHNIQUE: Multiple contiguous axial images were obtained through the abdomen. Images were obtained using multiple row detector helical technique. Using dose reduction techniques, radiation dose was ke pt as low as reasonably achievable to obtain optimal diagnostic quality images. FINDINGS: There are small bilateral pleural effusions with dependent atelectasis and consolidation in both lung s. Liver, spleen, adrenals, kidneys and pancreas unremarkable. No calcified gallstones or biliary ductal dilatation. There is a mild ileus. Charlton catheter present i n the bladder. No acute bony abnormalities. CONCLUSION: 1. Small bilateral pleural effusions with dependent atelectasis and consolidation in both lungs. 2. Mild ileus. Electronically signed by: Clinton Wilkinson MD 02/22/2018 8:47 PM EDT
[2018-02-22] MEDS: ARTIFICIAL TEARS OPTH OINT 3.5 APPLIC/3.5 GM TUBO EACH EYE SCH (21:00)
--- NOTE | 2018-02-22 22:46 | RADRPT ---
EXAM DATE: 02/22/2018 10:40 PM EDT AGE/SEX: 62 years / Male INDICATIONS: Pain. Constipation. CLINICAL DATA: This is the patient's initial encounter. Patient reports that signs and symptoms have been present for 2 weeks and indicates a pain score of 2/10. MEDICAL/SURGICAL HISTORY: None. None. COMPARISON: [facility], ABDOMEN KUB ONLY, 02/20/2018. . FINDINGS: The stomach is distended. NG tip is in the distal stomach. No free air identified. Mild basilar atel ectasis. CONCLUSION: Distended stomach with NG in distal stomach. No free air. Electronically signed by: Clinton Wilkinson MD 02/22/2018 10:44 PM EDT
[2018-02-23] VITALS (23 sets, daily range): BP systolic 136–167; BP diastolic 63–80; PULSE 65–90; RESP 20–29; TEMP 98.6–101.6; O2SAT 94–100
[2018-02-23] MEDS: INSULIN NovoLIN REGULAR SUPPLEMENTAL SCALE SQ SCH ×6 (00:57→21:25)
[2018-02-23] MEDS: ceFAZolin 2 GM/DEX PREMIX 50 ML IV SCH ×2 (00:57→14:36)
[2018-02-23] MEDS: hydrALAZINE HCL 25 MG TAB PO SCH ×3 (01:01→18:41)
[2018-02-23] MEDS: CHLORHEXIDINE GLUCONATE 2 % 1 PACK (2 CLOTHS) TOP SCH (04:00)
[2018-02-23] MEDS: ACETAMINOPHEN 325 MG TAB PO PRN ×2 (04:02→14:36)
[2018-02-23] MEDS: RESP: ALBUTEROL 2.5 MG/IPRATROPIUM 0.5 MG NEB (SCH) NEB ×4 (04:19→20:40)
--- NOTE | 2018-02-23 05:26 | RADRPT ---
EXAM DATE: 02/23/2018 5:19 AM EDT AGE/SEX: 62 years / Male INDICATIONS: Shortness of breath, possible pulmonary disease. CLINICAL DATA: This is the patient's subsequent encounter. Patient reports that signs and symptoms h ave been present for 1 week and indicates a pain score of Nonresponsive. MEDICAL/SURGICAL HISTORY: . Carcinoma, colon. Gastroesophageal reflux disease. Congestive heart failure. Hypertension. Ulcer. Arthritis. Diabetic. Colon resection. Cholecystectomy. COMPARISON: [facility] [place], CHEST SINGLE AP, 02/22/2018. . FINDINGS: A single AP view of the chest demonstrates the lungs to be symmetrically aerated without evidence of mass, infiltrate or effusion. The cardiomediastinal contours are unremarkable. Osseous structures a re intact. Right IJ Vas-Cath in good position. ET tube and NG tube in good position CONCLUSION: Lungs remain grossly clear. Electronically signed by: Eber Martínez MD 02/23/2018 5:24 AM EDT
[2018-02-23 05:39] LABS: BASOPHIL # 0.1 TH/MM3 (0-0.2); BASOPHIL % 0.5 % (0.0-2.0); EOSINOPHIL # 0.4 TH/MM3 (0-0.4); EOSINOPHIL % 2.8 % (0.0-4.0); HEMATOCRIT 33.1 % (39.0-51.0); HEMOGLOBIN 10.7 GM/DL (13.0-17.0); LYMPH % 13.6 % (9.0-44.0); LYMPHOCYTE # 2.1 TH/MM3 (1.0-4.8); MEAN CORPUSCULAR HEMOGLOBIN 26.8 PG (27.0-34.0); MEAN CORPUSCULAR HGB CONC 32.3 % (32.0-36.0); MEAN PLATELET VOLUME 8.9 FL (7.0-11.0); MONO % 10.9 % (0.0-8.0); MONOCYTE # 1.7 TH/MM3 (0-0.9); NEUT % 72.2 % (16.0-70.0); PLATELET COUNT 182 TH/MM3 (150-450); RED BLOOD COUNT 3.99 MIL/MM3 (4.50-5.90); RED CELL DISTRIBUTION WIDTH 16.9 % (11.6-17.2); WHITE BLOOD COUNT 15.2 TH/MM3 (4.0-11.0)
[2018-02-23 06:08] LABS: ALBUMIN 2.5 GM/DL (3.4-5.0); ALT (GPT) 6 U/L (12-78); BICARBONATE 26.1 MEQ/L (21.0-32.0); BLOOD UREA NITROGEN 76 MG/DL (7-18); CHLORIDE 101 MEQ/L (98-107); GLUCOSE,RANDOM 97 MG/DL (74-106); MAGNESIUM 2.7 MG/DL (1.5-2.5); SODIUM (NA) 142 MEQ/L (136-145)
[2018-02-23 06:15] LABS: ALKALINE PHOSPHATASE 116 U/L (45-117); AST (GOT) 26 U/L (15-37); GLOMERULAR FILTRATION RATE 9 ML/MIN (>89); PHOSPHORUS 6.8 MG/DL (2.5-4.9); TOTAL BILIRUBIN ADULT 0.6 MG/DL (0.2-1.0); TOTAL PROTEIN 7.3 GM/DL (6.4-8.2)
[2018-02-23] MEDS: CHLORHEXIDINE 0.12% (ORAL KIT) 15 ML CUP MT SCH ×2 (08:00→20:00)
[2018-02-23] MEDS: ARTIFICIAL TEARS OPTH OINT 3.5 APPLIC/3.5 GM TUBO EACH EYE SCH ×2 (08:38→21:23)
[2018-02-23] MEDS: METOPROLOL TARTRATE 25 MG TAB PO SCH ×2 (08:39→21:25)
[2018-02-23] MEDS: FUROSEMIDE 40 MG/4 ML VIAL IV PUSH SCH (08:39)
[2018-02-23] MEDS: PANTOPRAZOLE SODIUM 40 MG VIAL IV PUSH SCH (08:39)
[2018-02-23] MEDS: SENNOSIDES SYRUP 8.8 MG/5 ML CUP PO SCH (08:40)
[2018-02-23] MEDS: DOCUSATE SODIUM 100 MG/10 ML UDC PO SCH ×2 (08:40→21:25)
[2018-02-23] MEDS: INSULIN DETEMIR 100 UNITS/ML VIAL SQ SCH ×2 (08:40→21:00)
[2018-02-23] MEDS: DEXMEDETOMIDINE INJ 1,000 MCG in SODIUM CHLOR 0.9% 250 ML INJ 240 ML IV PRN ×2 (11:21→18:18)
--- NOTE | 2018-02-23 14:09 | HHI.NPPN ---
Subjective History of Present Illness The patient is a 62 yo [place] male with PMHx of DM, CAD, CVA, BPH, HTN, Colon CA, Anemia, GERD, who was brought into this facility on 02/12/18 after brother found him down on the ground at his home for >18hrs. Unclear if he had lost consciousness or the mechanism of his fall as the patient is currently intubated and sedated. Has been diagnosed with MSSA sepsis, but source is not entirely clear. Has hardware in his right ankle but podiatry does not feel that this is the source. Underwent STEF this AM and cardiology is suspicious for mitral valve vegetation, however, formal report is pending. His admitting SCr was 1.32 and has deteriorated to 4.14 at time of consult. He is 10L to the positive and UOP is marginal. Nephrology has been consulted for management of acute renal failure. Appears preserved renal functions predating this admission, with baseline SCr 0.6-0.8 as per Oct 2017 admission. Interval History Patient appears to be more responsive today. Sisters were by the bedside. Review of Systems General General Remarks Patient intubated on ventilatory support. Objective Data Data Vital Signs Date Time Temp Pulse Resp B/P (MAP) Pulse Ox O2 Delivery O2 Flow Rate FiO2 02/23/18 10:58 98 40 02/23/18 10:00 71 02/23/18 09:00 70 02/23/18 09:00 70 28 147/65 (92) 98 02/23/18 08:00 99.8 69 27 148/66 (93) 99 02/23/18 08:00 69 02/23/18 08:00 40 02/23/18 07:26 40 02/23/18 07:26 98 40 02/23/18 07:00 100 Mechanical Ventilator 40 02/23/18 06:00 90 02/23/18 04:17 99 40 02/23/18 04:00 101.6 65 20 139/63 (88) 99 02/23/18 04:00 90 02/23/18 04:00 40 02/23/18 02:00 66 02/23/18 00:00 100.4 66 23 136/64 (88) 98 02/23/18 00:00 66 02/23/18 00:00 40 02/22/18 23:54 99 40 02/22/18 22:00 66 02/22/18 20:20 99 100 02/22/18 20:00 98.5 63 24 159/70 (99) 99 02/22/18 20:00 40 02/22/18 20:00 65 02/22/18 19:40 99 40 02/22/18 19:00 92 Mechanical Ventilator 40 02/22/18 18:00 65 20 154/69 (97) 100 02/22/18 18:00 65 02/22/18 17:00 65 24 157/70 (99) 100 02/22/18 16:00 99.8 64 22 157/70 (99) 99 02/22/18 16:00 64 02/22/18 16:00 40 02/22/18 15:58 99 40 02/22/18 15:00 63 -: 02/23/18 0424 02/23/18 0424 Microbiology 02/22/18 Aerobic Blood Culture - Preliminary, Resulted NO GROWTH IN 1 DAY 02/22/18 Anaerobic Blood Culture - Preliminary, Resulted NO GROWTH IN 1 DAY 02/22/18 Aerobic Blood Culture - Preliminary, Resulted NO GROWTH IN 1 DAY 02/22/18 Anaerobic Blood Culture - Preliminary, Resulted NO GROWTH IN 1 DAY Tubes & Lines: Vas-Cath (RIJ) Physical Exam General Appearance: Comfortable, Obese Eyes Eye Exam: Sclera White Neck Neck Exam: Trachea Midline Pulmonary Resp Exam: Clear Bilaterally, Breath Sounds Equal, Decreased Bases Cardiology CV Exam: Regular, Normal Sinus Rhythm Gastrointestinal/Abdomen GI Exam: Soft, Non-Tender Integumentary Skin Exam: Clear, Warm Extremeties Extremities Exam: Moderate Edema (1 plus pitting edema ankles.), Pitting Edema (Generalized edema.) Neurologic Neuro Exam: Sedated Assessment/Plan Discussed Condition With: Sibling Problem List: (1) Acute renal failure ICD Codes: N17.9 - Acute kidney failure, unspecified Plan: The patient's urine output appears to be improving. Chest x-ray is clear. Will defer dialysis today. Increase loop diuretics with reevaluation of volume status and renal indices tomorrow. Discussed with family that although urinary output has improved and remains to be determined whether not there is adequate renal function to hold dialysis. No evidence of significant renal recovery at this time as discussed with his sisters by the bedside. Medications should be adjusted for the patient's renal decline. Avoid nephrotoxic medications such as iodinated contrast dyes and NSAIDs. Avoid gadolinium. (2) Sepsis ICD Codes: A41.9 - Sepsis, unspecified organism Status: Acute Plan: Source? Pending STEF results Abx as per ID (3) Rhabdomyolysis ICD Codes: M62.82 - Rhabdomyolysis Status: Acute Plan: Apparent given elevated CPK and urinary sediment. CPK trending down. Continue to monitor. (4) Adrenal nodule ICD Codes: E27.9 - Disorder of adrenal gland, unspecified Plan: Incidentally noted on CT scan. 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 Problem Qualifiers (1) Rhabdomyolysis: Qualified Codes: T79.6XXA - Traumatic ischemia of muscle, initial encounter Jeffy Brewer MD Feb 23, 2018 14:09
--- NOTE | 2018-02-23 17:30 | HHI.IDPN ---
Subjective Subjective Remarks Ptcont to have fever up to 101.6 F remains on vent remains on Hemodialysis. His blood cultures are + coag negative staph Nl resp maite in sputum clx Antibiotics azactam, micafungin dapto added on 02/19 cefazoline Lines PIVs look ok Past Medical History Past Medical History Diabetes Hyperlipidemia Chronic pain syndrome bilateral lower extremity ulcers BPH Hypertension Colon cancer s/p partial colectomy prior NSTEMI severe 2-vessel CAD managed medically old RBBB prior GI bleed anemia secondary to GI bleeding Arthritis CHF, unknown type GERD Past Surgical History partial colectomy skin grafts to right ankle left ankle surgery CABG Allergies: Coded Allergies: No Known Allergies (Unverified , 10/21/17) Objective . Vital Signs Date Time Temp Pulse Resp B/P (MAP) Pulse Ox O2 Delivery O2 Flow Rate FiO2 02/23/18 17:00 74 02/23/18 16:00 77 02/23/18 15:00 81 02/23/18 14:59 94 40 02/23/18 14:40 90 02/23/18 14:00 70 02/23/18 13:00 70 02/23/18 12:00 70 02/23/18 12:00 40 02/23/18 10:58 98 40 02/23/18 10:00 71 02/23/18 09:00 70 02/23/18 09:00 70 28 147/65 (92) 98 02/23/18 08:00 99.8 69 27 148/66 (93) 99 02/23/18 08:00 69 02/23/18 08:00 40 02/23/18 07:26 40 02/23/18 07:26 98 40 02/23/18 07:00 100 Mechanical Ventilator 40 02/23/18 06:00 90 02/23/18 04:17 99 40 02/23/18 04:00 101.6 65 20 139/63 (88) 99 02/23/18 04:00 90 02/23/18 04:00 40 02/23/18 02:00 66 02/23/18 00:00 100.4 66 23 136/64 (88) 98 02/23/18 00:00 66 02/23/18 00:00 40 02/22/18 23:54 99 40 02/22/18 22:00 66 6/9/18 20:20 99 100 02/22/18 20:00 98.5 63 24 159/70 (99) 99 02/22/18 20:00 40 02/22/18 20:00 65 02/22/18 19:40 99 40 02/22/18 19:00 92 Mechanical Ventilator 40 02/22/18 18:00 65 20 154/69 (97) 100 02/22/18 18:00 65 . Laboratory Tests Test 02/22/18 04:59 02/23/18 04:24 White Blood Count 21.5 TH/MM3 15.2 TH/MM3 Red Blood Count 4.75 MIL/MM3 3.99 MIL/MM3 Hemoglobin 12.9 GM/DL 10.7 GM/DL Hematocrit 39.1 % 33.1 % Mean Corpuscular Volume 82.2 FL 83.0 FL Mean Corpuscular Hemoglobin 27.1 PG 26.8 PG Mean Corpuscular Hemoglobin Concent 33.0 % 32.3 % Red Cell Distribution Width 17.1 % 16.9 % Platelet Count 214 TH/MM3 182 TH/MM3 Mean Platelet Volume 8.4 FL 8.9 FL Neutrophils (%) (Auto) 72.8 % 72.2 % Lymphocytes (%) (Auto) 12.5 % 13.6 % Monocytes (%) (Auto) 12.6 % 10.9 % Eosinophils (%) (Auto) 1.7 % 2.8 % Basophils (%) (Auto) 0.4 % 0.5 % Neutrophils # (Auto) 15.7 TH/MM3 11.0 TH/MM3 Lymphocytes # (Auto) 2.7 TH/MM3 2.1 TH/MM3 Monocytes # (Auto) 2.7 TH/MM3 1.7 TH/MM3 Eosinophils # (Auto) 0.4 TH/MM3 0.4 TH/MM3 Basophils # (Auto) 0.1 TH/MM3 0.1 TH/MM3 CBC Comment AUTO DIFF DIFF FINAL Differential Total Cells Counted 100 Neutrophils % (Manual) 79 % Band Neutrophils % 3 % Lymphocytes % 9 % Monocytes % 8 % Neutrophils # (Manual) 17.8 TH/MM3 Myelocytes 1 % Differential Comment FINAL DIFF MANUAL Toxic Granulation 2+ Platelet Estimate NORMAL Platelet Morphology Comment NORMAL Hematology Comments Laboratory Tests Test 02/22/18 04:59 02/23/18 04:24 Blood Urea Nitrogen 64 MG/DL 76 MG/DL Creatinine 5.59 MG/DL 6.20 MG/DL Random Glucose 170 MG/DL 97 MG/DL Total Protein 7.6 GM/DL 7.3 GM/DL Albumin 2.1 GM/DL 2.5 GM/DL Calcium Level 8.2 MG/DL 8.0 MG/DL Alkaline Phosphatase 163 U/L 116 U/L Aspartate Amino Transf (AST/SGOT) 40 U/L 26 U/L Alanine Aminotransferase (ALT/SGPT) 10 U/L 6 U/L Total Bilirubin 0.5 MG/DL 0.6 MG/DL Sodium Level 137 MEQ/L 142 MEQ/L Potassium Level 4.1 MEQ/L 3.7 MEQ/L Chloride Level 100 MEQ/L 101 MEQ/L Carbon Dioxide Level 21.9 MEQ/L 26.1 MEQ/L Anion Gap 15 MEQ/L 15 MEQ/L Estimat Glomerular Filtration Rate 10 ML/MIN 9 ML/MIN Phosphorus Level 6.8 MG/DL Magnesium Level 2.7 MG/DL Microbiology Date/Time Source Procedure Growth Status 02/22/18 20:58 Blood Peripheral Aerobic Blood Culture - Preliminary NO GROWTH IN 1 DAY Resulted 02/22/18 20:58 Blood Peripheral Anaerobic Blood Culture - Preliminary NO GROWTH IN 1 DAY Resulted 02/22/18 20:50 Blood Peripheral Aerobic Blood Culture - Preliminary NO GROWTH IN 1 DAY Resulted 02/22/18 20:50 Blood Peripheral Anaerobic Blood Culture - Preliminary NO GROWTH IN 1 DAY Resulted Imaging Last Impressions Chest X-Ray 02/23/18 0600 Signed Impressions: CONCLUSION: Lungs remain grossly clear. Abdomen/Pelvis CT 02/22/18 0000 Signed Impressions: CONCLUSION: 1. Small bilateral pleural effusions with dependent atelectasis and consolidat ion in both lungs. 2. Mild ileus. Abdomen X-Ray 02/22/18 0000 Signed Impressions: CONCLUSION: Distended stomach with NG in distal stomach. No free air. Liver Ultrasound 02/17/18 Signed Impressions: CONCLUSION: 1. Hepatomegaly with coarsened liver echotexture. No focal liver lesion is heath ntified. 2. Mild splenomegaly. Catheter Placement X-Ray 02/17/18 Signed Impressions: CONCLUSION: 1. Uncomplicated line placement as above. Foot MRI 02/14/18 Signed Impressions: CONCLUSION: 1. Diffuse subcutaneous edema of the foot with mild enhancement along the dors al aspect of the foot. This could represent cellulitis. No abscess is identifie d and there are no findings to indicate osteomyelitis. 2. There is some degree of osseous fusion at the tibiotalar joint and there is severe degenerative change at the subtalar joint and talonavicular joint. 3. Old healed fracture of the fifth metatarsal. Foot X-Ray 02/13/18 Signed Impressions: CONCLUSION: 1. There is a transverse fracture through the mid fifth metatarsal. Adjacent p eriosteal reaction is present suggesting that it is subacute or chronic. 2. There has been prior arthrodesis of the subtalar joint and tibiotalar joint s with osseous fusion. Hypertrophic osteophytes are present at the talonavicula r joint. Head CT 02/12/18 Signed Impressions: CONCLUSION: Chronic small vessel ischemic and atrophic changes. Cervical Spine CT 02/12/18 Signed Impressions: CONCLUSION: Unremarkable study except for slight degenerative spondylosis. CT Angiography 02/12/18 Signed Impressions: CONCLUSION: 1. Possible nodules within the thyroid gland mainly on the right side. 2. Slight fatty liver. 3. No definite pulmonary embolus. Physical Exam CONSTITUTIONAL/GENERAL: This is a morbidly obese patient, intubated TUBES/LINES/DRAINS: SKIN: No jaundice, rashes, or lesions. Skin temperature appropriate. HEAD: Atraumatic. Normocephalic. EYES: Pupils equal and round and reactive. No scleral icterus. No injection or drainage. Fundi not examined. ENT: Intubated. NECK: Trachea midline. Supple, nontender. No palpable thyroid enlargement or nodularity. CARDIOVASCULAR: RRR. No murmurs, rubs or gallops RESPIRATORY/CHEST: Symmetric, unlabored respirations. Clear to auscultation. Breath sounds equal bilaterally. No wheezes, rales, or rhonchi. GASTROINTESTINAL: Abdomen less tight very distended and tympanic mainly in LUQ area GENITOURINARY: Without palpable bladder distension. Charlton catheter in place with small amount of urine MUSCULOSKELETAL: Extremities without clubbing, cyanosis, Marked generalysed edema. Bilateral LE erythema with induration noted. NEUROLOGICAL: sedated. On vent PSYCHIATRIC:unable to assess Assessment & Plan Remarks Severe Sepsis present on admission Mitral valve endocarditis, MSSA MSSA high grade bacteremia. Bilateral LE cellulitis. Ho Rt foot hardware infection MRI w/o e/o osteomyelitis in either feet acute metabolic encephalopathy:sepsis, metabolic. acute resp failure on vent. acute renal failure oliguric: sepsis, meds oxacillin, vanco etc. May end up needing HD. CAD s/p CABG ARF with oliguria and fluid overload : no e/o interstitial nephritis - nephrology following, On HD Persistent fever. Source not apparent for now Ileus - worsening leukocytosis: improved Recs: cont Ancef IV q8hrs equivalent. dc azactam, micafunfgin, cont dapto for now fu P BC results repeat BC further rec's per final clx chk stool for C.diff will repeat CBC consider to change lines Lois Otero MD Feb 23, 2018 17:30
--- NOTE | 2018-02-23 17:55 | HHI.CCPN ---
Subjective Remarks/Hospital Course Hospital Course: This is a 62yM with history of prior stroke, DM, CAD who presents after his brother found him after he fell. He states he was on the floor for > 18 hours. He endorses a week of fatigue, fever, chills. denies any other symptoms. denies chest pain, shortness of breath, nausea, vomiting, constipation, diarrhea. does endorse generalized abdominal pain which is mild. in the ER he was tachycardic and very diaphoretic. he has laboratory evidence of CK 7000, wbc 17k, Cr 1.3, trop 0.8. CT chest/abd/pelvis unremarkable. CT head and c-spine negative for trauma. febrile to 103 in the ER. given 2L NS ivf with improvement in his HR. remainder of ROS negative. 02/13: somewhat improved, feeling slightly better. remains febrile. cultures still pending. repeat lactate pending. HR improving. 02/14: Patient had episodes of temperatures of 103 with diaphoresis tachypnea yesterday. Blood cultures growing staph aureus 4 out of 4. Evaluated by ANGI Otero yesterday. Respiratory status declined overnight and patient was intubated and placed on mechanical ventilation. Currently remains sedated, orally intubated on mechanical ventilation. 02/15: Remains sedated, orally intubated on mechanical ventilation. Cardiology consulted by Dr. Otero to evaluate for STEF for persistent MSSA bacteremia. 02/16: remains very critically ill. persistent + blood cultures for MSSA. STEF still pending. Cr doubled overnight again despite +10L in last 48h. no improvement at all, and all organ systems are worse. no implantable devices. central lines were placed on admission. 02/17 Patient remains sedated with Diprivan and Fentanyl drip. Afebrile. 02/18 Patient was started on HD yesterday remains sedated and intubated. 02/19 Patient s/p HD yesterday with removal 3L. Spiked fever with T:101.3 at 4am. Sedated and intubated 02/20 No events overnight Patient tolerated CPAP for most of day yesterday. Off Diprivan and Fentanyl drips and now on Precedex drip. s/p HD yesterday with removal 3L. T:102.1 at 8 am. 02/21 Patient remains intubated on Precedex drip to facilitate with weaning trials. s/p HD yesterday with removal 3.5L. Had hematuria overnight night placed on CBI now hematuria is clearing. SUBJECTIVE: 02/22: Afebrile. NG tube placed to low wall suction secondary to increasing abdominal distention. Last KUB 02/20 revealed gaseous distention. Will check stat CT abdomen/pelvis with oral contrast 02/23: Late entry note. Patient seen at noon. NG tube output overnight approximately 100 cc. Currently the patient remains n.p.o.. GI has been consulted. Will initiate Reglan 5 mg every 8 hour. Patient tolerated CPAP trials for approximately 8 hours today. Objective Vital Signs Date Time Temp Pulse Resp B/P (MAP) Pulse Ox O2 Delivery O2 Flow Rate FiO2 02/23/18 17:00 74 26 167/74 (105) 97 02/23/18 16:00 40 02/23/18 12:00 98.6 02/23/18 07:00 Mechanical Ventilator Intake and Output 02/23/18 02/23/18 02/24/18 08:00 16:00 00:00 Intake Total 50 ml Output Total 550 ml Balance -500 ml Result Diagram: 02/23/18 0424 02/23/18 0424 Imaging Last Impressions Chest X-Ray 02/23/18 0600 Signed Impressions: CONCLUSION: Lungs remain grossly clear. Abdomen/Pelvis CT 02/22/18 0000 Signed Impressions: CONCLUSION: 1. Small bilateral pleural effusions with dependent atelectasis and consolidat ion in both lungs. 2. Mild ileus. Abdomen X-Ray 02/22/18 0000 Signed Impressions: CONCLUSION: Distended stomach with NG in distal stomach. No free air. Liver Ultrasound 02/17/18 0000 Signed Impressions: CONCLUSION: 1. Hepatomegaly with coarsened liver echotexture. No focal liver lesion is heath ntified. 2. Mild splenomegaly. Catheter Placement X-Ray 02/17/18 0000 Signed Impressions: CONCLUSION: 1. Uncomplicated line placement as above. Foot MRI 02/14/18 0000 Signed Impressions: CONCLUSION: 1. Diffuse subcutaneous edema of the foot with mild enhancement along the dors al aspect of the foot. This could represent cellulitis. No abscess is identifie d and there are no findings to indicate osteomyelitis. 2. There is some degree of osseous fusion at the tibiotalar joint and there is severe degenerative change at the subtalar joint and talonavicular joint. 3. Old healed fracture of the fifth metatarsal. Foot X-Ray 02/13/18 Signed Impressions: CONCLUSION: 1. There is a transverse fracture through the mid fifth metatarsal. Adjacent p eriosteal reaction is present suggesting that it is subacute or chronic. 2. There has been prior arthrodesis of the subtalar joint and tibiotalar joint s with osseous fusion. Hypertrophic osteophytes are present at the talonavicula r joint. Head CT 02/12/18 Signed Impressions: CONCLUSION: Chronic small vessel ischemic and atrophic changes. Cervical Spine CT 02/12/18 Signed Impressions: CONCLUSION: Unremarkable study except for slight degenerative spondylosis. CT Angiography 02/12/18 Signed Impressions: CONCLUSION: 1. Possible nodules within the thyroid gland mainly on the right side. 2. Slight fatty liver. 3. No definite pulmonary embolus. Last Impressions Chest X-Ray 02/22/18 Signed Impressions: CONCLUSION: Mild basilar opacity is slightly improved since February 19. Endotracheal tube, naso gastric tube and right central line unchanged. Abdomen X-Ray 02/20/18 Signed Impressions: CONCLUSION: Marked gaseous distention of the stomach. Nasogastric tube is present but presu mably not connected to suction. Otherwise, no acute finding is identified. Liver Ultrasound 02/17/18 Signed Impressions: CONCLUSION: 1. Hepatomegaly with coarsened liver echotexture. No focal liver lesion is heath ntified. 2. Mild splenomegaly. Catheter Placement X-Ray 02/17/18 Signed Impressions: CONCLUSION: 1. Uncomplicated line placement as above. Foot MRI 02/14/18 Signed Impressions: CONCLUSION: 1. Diffuse subcutaneous edema of the foot with mild enhancement along the dors al aspect of the foot. This could represent cellulitis. No abscess is identifie d and there are no findings to indicate osteomyelitis. 2. There is some degree of osseous fusion at the tibiotalar joint and there is severe degenerative change at the subtalar joint and talonavicular joint. 3. Old healed fracture of the fifth metatarsal. Foot X-Ray 02/13/18 Signed Impressions: CONCLUSION: 1. There is a transverse fracture through the mid fifth metatarsal. Adjacent p eriosteal reaction is present suggesting that it is subacute or chronic. 2. There has been prior arthrodesis of the subtalar joint and tibiotalar joint s with osseous fusion. Hypertrophic osteophytes are present at the talonavicula r joint. Head CT 02/12/18 Signed Impressions: CONCLUSION: Chronic small vessel ischemic and atrophic changes. Cervical Spine CT 02/12/18 Signed Impressions: CONCLUSION: Unremarkable study except for slight degenerative spondylosis. CT Angiography 02/12/18 Signed Impressions: CONCLUSION: 1. Possible nodules within the thyroid gland mainly on the right side. 2. Slight fatty liver. 3. No definite pulmonary embolus. Abdomen/Pelvis CT 02/12/18 Signed Impressions: CONCLUSION: 1. Slight fatty liver. 2. Probable left adrenal adenoma. Objective Remarks GENERAL: Patient is 62 yo male currently resting in bed on dexmedetomidine for sedation, intubated SKIN: Warm and dry. No rash HEAD: Normocephalic. EYES: Pupils are about 3 members bilaterally and reactive no scleral icterus. No injection or drainage. NECK: Supple, trachea midline. No JVD or lymphadenopathy. CARDIOVASCULAR: Bradycardic, RR. S1, S2 no S4. Without murmurs, clicks, gallops or rubs RESPIRATORY: Minutes breath sounds the bases. No wheezing. GASTROINTESTINAL: Abdomen soft, non-tender, nondistended. MUSCULOSKELETAL: Trace bilateral lower extremities. Open ears to the anterior shins bilaterally with erythema currently covered in Kerlix Neuro: Intubated. Follows commands on sedation vacation. Moves all 4 extremities spontaneously. A/P Assessment and Plan Neuro/Psych: On dexmedetomidine drip at 1.2 mcg/kg/min for sedation while intubated Goal of RASS -2 Daily sedation vacation Monitor neuro status. CT brain 02/12: Chronic small vessel ischemic changes Acetaminophen 650 mg by 2. every 4 hours as needed fever Pulm: Acute respiratory failure Continue with vent support keep sats >92% Bronchodilators, ICU vent bundle. PRVC ventilation SBT daily as sahara tolerated CPAP trials 8 hours 02/23 CV: Type II NSTEMI, Elevated troponin, likely secondary to demand ischemia Rate 1 diastolic dysfunction/chronic Essential hypertension Hyperlipidemia - CT pulmonary angiogram negative for PE. Continue Lopressor 25mg Q12, add Hydralazine 50mg Q7. Monitor HR and BP keep MAP>65mmHg Lactic acid 2.8 on 02/13 STEF 02/16: EF 55-60%, grade I diastolic dysfunction. Small mobile echodensity is noted on the subvalvular apparatus of the posterior mitral valve leaflet. ?small vegetation, sclerosis, or partial chordae tendineae rupture. Cards signed off Currently on metoprolol tartrate 25 twice daily and and hydralazine 75 mg 3 times daily. And isosorbide mononitrate 100 mg daily home Holding simvastatin 20 mg daily for dyslipidemia resumed clinically indicated Renal/: Acute kidney injury secondary to contrast? Sepsis secondary to staph bacteremia ? Rhabdo -resolving BPH Monitor renal function, I/O's, avoid nephrotoxins HD initiated 02/17 Hemodialysis 02/22 -3.[address] Brewer On furosemide 80mg IV daily Holding tamsulosin 0.4 mg daily. GI: Elevated LFT's ( trending down) Ileus On tube feeds- Nepro with goal rate 45ml/hr currently on hold secondary to abdominal distention. Stat CT abdomen/pelvis pending On Protonix 40mg daily for GI prophylaxis Monitor LFT's, CT abd/pelvis 02/12: Slight fatty liver Repeat CT abdomen/pelvis 02/22 pending Hep B,C non reactive US liver: Hepatomegaly with coarsened liver echotexture. No focal liver lesion is identified. Mild splenomegaly 02/23: Begin Reglan 5 mg every 8 hour ID Staph bacteremia - source LE cellulitis? - MRI bilateral feet: negative for osteo. Positive cellulitis - podiatry consult appreciated -ID consult Dr. Otero -Continue abx per ID (cefazolin, aztreonam micafungin, Dapto) monitor for signs of infections ( Fever, WBC) Pancultured 02/19 ( Blood, sputum, Urine) 02/19 BC: Staph aureus 02/17 BC from: NGTD 02/12: 4/4 bottles MSSA 02/13: 2/ bottles MSSA 02/15: 09/19 bottles MSSA - sputum culture: NGTD Heme: Normocytic anemia Thrombocytopenia Monitor CBC. Follow trend Endo: Hyperglycemia Diabetes Mellitus, type 2 - increase SSI high scale, q4h, increase insulin detemir 18u Q12 Currently on glipizide 5 mg twice daily been sitagliptin 50 mg daily Prophylaxis SCDs SQH held for hematuria Pantoprazole Lines: Right IJ vascath placed 02/17 by IR my billing statement This patient remains critically ill with one or more organ systems which are or may become a threat to life. I have spent in excess of 31 minutes discontinuously in the care and management of this patient. This time is exclusive of procedures, and includes, but is not limited to, evaluation of the patient, review of the medical record, discussions with family, consultants, nursing staff, or respiratory therapy, and documentation in the medical record. Patient's 2 sisters at bedside provided medical status update. All questions answered. Physician Evita Blake MD Feb 23, 2018 17:55
[2018-02-23] MEDS: DAPTOmycin INJ 800 MG in SODIUM CHLORIDE 0.9% INJ 100 ML IV SCH (21:22)
[2018-02-23] MEDS: METOCLOPRAMIDE HCL 10 MG/2 ML VIAL IV SCH (21:23)
[2018-02-23] MEDS: FUROSEMIDE 20 MG/2 ML VIAL IV PUSH SCH (21:24)
[2018-02-23] MEDS: LABETALOL HCL 100 MG/20 ML VIAL IV PUSH PRN (23:26)
[2018-02-24] VITALS (18 sets, daily range): BP systolic 100–188; BP diastolic 57–86; PULSE 60–70; RESP 19–23; TEMP 98.3–100; O2SAT 92–99
[2018-02-24] MEDS: DEXMEDETOMIDINE INJ 1,000 MCG in SODIUM CHLOR 0.9% 250 ML INJ 240 ML IV PRN ×5 (00:28→22:57)
[2018-02-24] MEDS: hydrALAZINE HCL 25 MG TAB PO SCH ×3 (01:14→18:15)
[2018-02-24] MEDS: ceFAZolin 2 GM/DEX PREMIX 50 ML IV SCH ×2 (01:14→11:27)
[2018-02-24] MEDS: INSULIN NovoLIN REGULAR SUPPLEMENTAL SCALE SQ SCH ×6 (01:15→22:00)
[2018-02-24] MEDS: cloNIDine HCL 0.1 MG TAB PO PRN (03:50)
[2018-02-24] MEDS: CHLORHEXIDINE GLUCONATE 2 % 1 PACK (2 CLOTHS) TOP SCH (04:00)
[2018-02-24] MEDS: RESP: ALBUTEROL 2.5 MG/IPRATROPIUM 0.5 MG NEB (SCH) NEB ×4 (04:14→19:47)
[2018-02-24] MEDS: METOCLOPRAMIDE HCL 10 MG/2 ML VIAL IV SCH ×3 (04:25→20:23)
[2018-02-24 07:40] LABS: AUTOMATED NEUTROPHIL # 11.2 TH/MM3 (1.8-7.7); BASOPHIL % 0.3 % (0.0-2.0); EOSINOPHIL # 0.4 TH/MM3 (0-0.4); EOSINOPHIL % 2.9 % (0.0-4.0); HEMATOCRIT 33.2 % (39.0-51.0); HEMOGLOBIN 10.9 GM/DL (13.0-17.0); LYMPH % 13.8 % (9.0-44.0); MEAN CELL VOLUME 83.1 FL (80.0-100.0); MEAN CORPUSCULAR HEMOGLOBIN 27.3 PG (27.0-34.0); MEAN CORPUSCULAR HGB CONC 32.9 % (32.0-36.0); MEAN PLATELET VOLUME 9.2 FL (7.0-11.0); MONO % 7.6 % (0.0-8.0); MONOCYTE # 1.1 TH/MM3 (0-0.9); NEUT % 75.4 % (16.0-70.0); PLATELET COUNT 215 TH/MM3 (150-450); RED CELL DISTRIBUTION WIDTH 16.4 % (11.6-17.2); WHITE BLOOD COUNT 14.8 TH/MM3 (4.0-11.0)
[2018-02-24] MEDS: CHLORHEXIDINE 0.12% (ORAL KIT) 15 ML CUP MT SCH ×2 (08:00→20:23)
[2018-02-24 08:16] LABS: ALBUMIN 2.3 GM/DL (3.4-5.0); BICARBONATE 25.2 MEQ/L (21.0-32.0); CALCIUM 8.2 MG/DL (8.5-10.1); CREATININE 7.99 MG/DL (0.60-1.30)
[2018-02-24 08:26] LABS: PHOSPHORUS 9.4 MG/DL (2.5-4.9)
--- NOTE | 2018-02-24 08:50 | HHI.CCPN ---
Subjective Remarks/Hospital Course Hospital Course: This is a 62yM with history of prior stroke, DM, CAD who presents after his brother found him after he fell. He states he was on the floor for > 18 hours. He endorses a week of fatigue, fever, chills. denies any other symptoms. denies chest pain, shortness of breath, nausea, vomiting, constipation, diarrhea. does endorse generalized abdominal pain which is mild. in the ER he was tachycardic and very diaphoretic. he has laboratory evidence of CK 7000, wbc 17k, Cr 1.3, trop 0.8. CT chest/abd/pelvis unremarkable. CT head and c-spine negative for trauma. febrile to 103 in the ER. given 2L NS ivf with improvement in his HR. remainder of ROS negative. 02/13: somewhat improved, feeling slightly better. remains febrile. cultures still pending. repeat lactate pending. HR improving. 02/14: Patient had episodes of temperatures of 103 with diaphoresis tachypnea yesterday. Blood cultures growing staph aureus 4 out of 4. Evaluated by ANGI Otero yesterday. Respiratory status declined overnight and patient was intubated and placed on mechanical ventilation. Currently remains sedated, orally intubated on mechanical ventilation. 02/15: Remains sedated, orally intubated on mechanical ventilation. Cardiology consulted by Dr. Otero to evaluate for STEF for persistent MSSA bacteremia. 02/16: remains very critically ill. persistent + blood cultures for MSSA. STEF still pending. Cr doubled overnight again despite +10L in last 48h. no improvement at all, and all organ systems are worse. no implantable devices. central lines were placed on admission. 02/17 Patient remains sedated with Diprivan and Fentanyl drip. Afebrile. 02/18 Patient was started on HD yesterday remains sedated and intubated. 02/19 Patient s/p HD yesterday with removal 3L. Spiked fever with T:101.3 at 4am. Sedated and intubated 02/20 No events overnight Patient tolerated CPAP for most of day yesterday. Off Diprivan and Fentanyl drips and now on Precedex drip. s/p HD yesterday with removal 3L. T:102.1 at 8 am. 02/21 Patient remains intubated on Precedex drip to facilitate with weaning trials. s/p HD yesterday with removal 3.5L. Had hematuria overnight night placed on CBI now hematuria is clearing. SUBJECTIVE: 02/22: Afebrile. NG tube placed to low wall suction secondary to increasing abdominal distention. Last KUB 02/20 revealed gaseous distention. Will check stat CT abdomen/pelvis with oral contrast 02/23: Late entry note. Patient seen at noon. NG tube output overnight approximately 100 cc. Currently the patient remains n.p.o.. GI has been consulted. Will initiate Reglan 5 mg every 8 hour. Patient tolerated CPAP trials for approximately 8 hours today. 02/24: T-max 99.5. Patient continues to have hypoactive bowel sounds Reglan every 8 hours was initiated last evening C. difficile is pending. The patient was noted to have 700 cc of residual fluid this a.m. per G-tube despite low intermittent wall suction. GI has been consulted. Objective Vital Signs Date Time Temp Pulse Resp B/P (MAP) Pulse Ox O2 Delivery O2 Flow Rate FiO2 02/24/18 07:00 98 Mechanical Ventilator 40 02/24/18 06:00 68 02/24/18 04:00 99.5 20 167/75 (105) Intake and Output 02/24/18 02/24/18 02/24/18 07:59 15:59 23:59 Intake Total 790 ml Output Total 900 ml Balance -110 ml Result Diagram: 02/24/18 0548 02/24/18 0548 Imaging Last Impressions Chest X-Ray 02/23/18 0600 Signed Impressions: CONCLUSION: Lungs remain grossly clear. Abdomen/Pelvis CT 02/22/18 0000 Signed Impressions: CONCLUSION: 1. Small bilateral pleural effusions with dependent atelectasis and consolidat ion in both lungs. 2. Mild ileus. Abdomen X-Ray 02/22/18 0000 Signed Impressions: CONCLUSION: Distended stomach with NG in distal stomach. No free air. Liver Ultrasound 02/17/18 Signed Impressions: CONCLUSION: 1. Hepatomegaly with coarsened liver echotexture. No focal liver lesion is heath ntified. 2. Mild splenomegaly. Catheter Placement X-Ray 02/17/18 0000 Signed Impressions: CONCLUSION: 1. Uncomplicated line placement as above. Foot MRI 02/14/18 Signed Impressions: CONCLUSION: 1. Diffuse subcutaneous edema of the foot with mild enhancement along the dors al aspect of the foot. This could represent cellulitis. No abscess is identifie d and there are no findings to indicate osteomyelitis. 2. There is some degree of osseous fusion at the tibiotalar joint and there is severe degenerative change at the subtalar joint and talonavicular joint. 3. Old healed fracture of the fifth metatarsal. Foot X-Ray 02/13/18 Signed Impressions: CONCLUSION: 1. There is a transverse fracture through the mid fifth metatarsal. Adjacent p eriosteal reaction is present suggesting that it is subacute or chronic. 2. There has been prior arthrodesis of the subtalar joint and tibiotalar joint s with osseous fusion. Hypertrophic osteophytes are present at the talonavicula r joint. Head CT 02/12/18 Signed Impressions: CONCLUSION: Chronic small vessel ischemic and atrophic changes. Cervical Spine CT 02/12/18 Signed Impressions: CONCLUSION: Unremarkable study except for slight degenerative spondylosis. CT Angiography 02/12/18 Signed Impressions: CONCLUSION: 1. Possible nodules within the thyroid gland mainly on the right side. 2. Slight fatty liver. 3. No definite pulmonary embolus. Last Impressions Chest X-Ray 02/22/18 Signed Impressions: CONCLUSION: Mild basilar opacity is slightly improved since February 19. Endotracheal tube, naso gastric tube and right central line unchanged. Abdomen X-Ray 02/20/18 Signed Impressions: CONCLUSION: Marked gaseous distention of the stomach. Nasogastric tube is present but presu mably not connected to suction. Otherwise, no acute finding is identified. Liver Ultrasound 02/17/18 Signed Impressions: CONCLUSION: 1. Hepatomegaly with coarsened liver echotexture. No focal liver lesion is heath ntified. 2. Mild splenomegaly. Catheter Placement X-Ray 02/17/18 Signed Impressions: CONCLUSION: 1. Uncomplicated line placement as above. Foot MRI 02/14/18 Signed Impressions: CONCLUSION: 1. Diffuse subcutaneous edema of the foot with mild enhancement along the dors al aspect of the foot. This could represent cellulitis. No abscess is identifie d and there are no findings to indicate osteomyelitis. 2. There is some degree of osseous fusion at the tibiotalar joint and there is severe degenerative change at the subtalar joint and talonavicular joint. 3. Old healed fracture of the fifth metatarsal. Foot X-Ray 02/13/18 Signed Impressions: CONCLUSION: 1. There is a transverse fracture through the mid fifth metatarsal. Adjacent p eriosteal reaction is present suggesting that it is subacute or chronic. 2. There has been prior arthrodesis of the subtalar joint and tibiotalar joint s with osseous fusion. Hypertrophic osteophytes are present at the talonavicula r joint. Head CT 02/12/18 Signed Impressions: CONCLUSION: Chronic small vessel ischemic and atrophic changes. Cervical Spine CT 02/12/18 Signed Impressions: CONCLUSION: Unremarkable study except for slight degenerative spondylosis. CT Angiography 02/12/18 Signed Impressions: CONCLUSION: 1. Possible nodules within the thyroid gland mainly on the right side. 2. Slight fatty liver. 3. No definite pulmonary embolus. Abdomen/Pelvis CT 02/12/18 Signed Impressions: CONCLUSION: 1. Slight fatty liver. 2. Probable left adrenal adenoma. Objective Remarks GENERAL: Patient is 62 yo male currently resting in bed on dexmedetomidine for sedation, intubated SKIN: Warm and dry. No rash HEAD: Normocephalic. EYES: Pupils are about 3 members bilaterally and reactive no scleral icterus. No injection or drainage. NECK: Supple, trachea midline. No JVD or lymphadenopathy. CARDIOVASCULAR: Bradycardic, RR. S1, S2 no S4. Without murmurs, clicks, gallops or rubs RESPIRATORY: Minutes breath sounds the bases. No wheezing. GASTROINTESTINAL: Abdomen soft, non-tender, protuberant nondistended. Hypoactive bowel sounds. MUSCULOSKELETAL: Trace bilateral lower extremities. Open ears to the anterior shins bilaterally with erythema currently covered in Kerlix NEURO: RASS -1. Intubated. Follows commands on sedation vacation. Moves all 4 extremities spontaneously. A/P Assessment and Plan Neuro/Psych: On dexmedetomidine drip at 1.2 mcg/kg/min for sedation while intubated Goal of RASS -2 Daily sedation vacation Monitor neuro status. CT brain 02/12: Chronic small vessel ischemic changes Acetaminophen 650 mg every 4 hours as needed fever Pulm: Acute respiratory failure Continue with vent support keep sats >92% Bronchodilators, ICU vent bundle. PRVC ventilation SBT daily as sahara tolerated CPAP trials 8 hours on 02/23 Continue CPAP trials CV: Type II NSTEMI, Elevated troponin, likely secondary to demand ischemia Rate 1 diastolic dysfunction/chronic Essential hypertension Hyperlipidemia - CT pulmonary angiogram negative for PE. Continue Lopressor 25mg Q12, Hydralazine 75mg Q8 hr. Monitor HR and BP keep MAP>65mmHg Lactic acid 2.8 on 02/13 STEF 02/16: EF 55-60%, grade I diastolic dysfunction. Small mobile echodensity is noted on the subvalvular apparatus of the posterior mitral valve leaflet. ?small vegetation, sclerosis, or partial chordae tendineae rupture. Cards signed off Currently on metoprolol tartrate 25 twice daily and and hydralazine 75 mg 3 times daily. And isosorbide mononitrate 100 mg daily home Holding simvastatin 20 mg daily for dyslipidemia resumed clinically indicated Renal/: Acute kidney injury secondary to contrast? Sepsis secondary to staph bacteremia ? Rhabdo -resolving BPH Monitor renal function, I/O's, avoid nephrotoxins HD initiated 02/17 Hemodialysis 02/22 -3.[address] Brewer On furosemide 80mg IV daily Holding tamsulosin 0.4 mg daily. Continue to monitor creatinine kinase while on daptomycin GI: Elevated LFT's ( trending down) Ileus Tube feeds- Nepro with goal rate 45ml/hr currently on hold (02/22) secondary to abdominal distention. Stat CT abdomen/pelvis-ileus On Protonix 40mg daily for GI prophylaxis Monitor LFT's, CT abd/pelvis 02/12: Slight fatty liver Repeat CT abdomen/pelvis 02/22 pending Hep B,C non reactive US liver: Hepatomegaly with coarsened liver echotexture. No focal liver lesion is identified. Mild splenomegaly 02/23: Begin Reglan 5 mg every 8 hours 02/23: GI consulted ID Staph bacteremia - source LE cellulitis? - MRI bilateral feet: negative for osteo. Positive cellulitis - podiatry consult appreciated -ID consult Dr. Otero -Continue abx per ID (cefazolin, aztreonam micafungin, Dapto) monitor for signs of infections ( Fever, WBC) Pancultured 02/19 ( Blood, sputum, Urine) 02/19 BC: Staph aureus 02/17 BC from: NGTD 02/12: 4/4 bottles MSSA 02/13: 2/4 bottles MSSA 02/15: 1/4 bottles MSSA - sputum culture: NGTD Heme: Normocytic anemia Thrombocytopenia Monitor CBC. Follow trend Endo: Hyperglycemia Diabetes Mellitus, type 2 - increase SSI high scale, q4h, increase insulin detemir 20u Q12hr Currently on glipizide 5 mg twice daily been sitagliptin 50 mg daily Prophylaxis SCDs SQH resumed 02/24 Pantoprazole Lines: Right IJ vascath placed 02/17 by IR my billing statement This patient remains critically ill with one or more organ systems which are or may become a threat to life. I have spent in excess of 32 minutes discontinuously in the care and management of this patient. This time is exclusive of procedures, and includes, but is not limited to, evaluation of the patient, review of the medical record, discussions with family, consultants, nursing staff, or respiratory therapy, and documentation in the medical record. Patient's 2 sisters at bedside provided medical status update. All questions answered. Physician Evita Blake MD Feb 24, 2018 08:50
--- NOTE | 2018-02-24 08:58 | PD.CONS ---
HPI History of Present Illness This is a 62 year old M with significant PMH who presented to [facility] after he was found by his brother after a fall, pt was on the floor for over 18 hours. CK on arrival was over 7000. Pt septic on admission, positive blood cultures, infectious disease is following. He has also had worsening renal function and is now on dialysis. Pt is orally intubated making history difficult to obtain, he is awake and able to shake his head yes and no appropriately. Our service has been consulted to assist in the management of the ileus. KUB on 02/22 revealed distended stomach with OG in the distal stomach. Per RN pt had 700 mL of tube feeding residual this morning, so currently TF on hold. Reglan was also added by the attending last night. Our service has seen pt in October of this year, did an EGD which revealed three ulcers in the antrum and hiatal hernia. (Nevaeh Jules) PFSH Past Medical History Diabetes Hyperlipidemia Chronic pain syndrome bilateral lower extremity ulcers BPH Hypertension Colon cancer s/p partial colectomy prior NSTEMI severe 2-vessel CAD managed medically old RBBB prior GI bleed anemia secondary to GI bleeding Arthritis CHF, unknown type GERD Past Surgical History partial colectomy skin grafts to right ankle left ankle surgery (Nevaeh Jules) Coded Allergies: No Known Allergies (Unverified , 10/21/17) Review of Systems Gastrointestinal: DENIES: Abdominal pain (Nevaeh Jules) GI Exam Vitals I&O Vital Signs Date Time Temp Pulse Resp B/P (MAP) Pulse Ox O2 Delivery O2 Flow Rate FiO2 02/24/18 08:38 99 30 02/24/18 08:38 30 02/24/18 07:00 98 Mechanical Ventilator 40 02/24/18 06:00 68 02/24/18 04:15 99 40 02/24/18 04:00 99.5 67 20 167/75 (105) 99 02/24/18 04:00 67 02/24/18 04:00 40 02/24/18 02:00 70 02/24/18 00:10 99 40 02/24/18 00:00 100.0 70 19 188/86 (120) 99 02/24/18 00:00 70 02/24/18 00:00 40 02/23/18 22:00 75 02/23/18 20:00 74 02/23/18 20:00 40 02/23/18 20:00 99.4 74 24 158/80 (106) 99 02/23/18 19:50 100 40 02/23/18 19:00 73 02/23/18 19:00 98 Mechanical Ventilator 40 02/23/18 18:00 74 02/23/18 17:00 74 26 167/74 (105) 97 02/23/18 17:00 74 02/23/18 16:00 77 02/23/18 16:00 77 25 155/70 (98) 96 02/23/18 16:00 40 02/23/18 15:00 81 02/23/18 15:00 81 27 158/71 (100) 94 02/23/18 14:59 94 40 02/23/18 14:40 90 28 158/72 (100) 97 02/23/18 14:40 90 02/23/18 14:00 70 28 157/70 (99) 99 02/23/18 14:00 70 02/23/18 13:00 70 28 152/67 (95) 99 02/23/18 13:00 70 02/23/18 12:00 70 02/23/18 12:00 98.6 70 29 153/67 (95) 98 02/23/18 12:00 40 02/23/18 10:58 98 40 02/23/18 10:00 71 02/23/18 09:00 70 02/23/18 09:00 70 28 147/65 (92) 98 I/O 02/23/18 02/23/18 02/23/18 02/24/18 02/24/18 02/24/18 07:00 15:00 23:00 07:00 15:00 23:00 Intake Total 50 ml 250 ml 570 ml 790 ml Output Total 550 ml 600 ml 900 ml Balance -500 ml 250 ml -30 ml -110 ml IV Total 50 ml 250 ml 150 ml 550 ml Tube Feeding 0 ml 0 ml Other 420 ml 240 ml Output Urine Total 300 ml 500 ml 700 ml Stool Total 100 ml 100 ml Gastric Drainage Total 150 ml 100 ml 100 ml # Bowel Movements 1 1 Imaging Last Impressions Chest X-Ray 02/23/18 0600 Signed Impressions: CONCLUSION: Lungs remain grossly clear. Abdomen/Pelvis CT 6/9/18 0000 Signed Impressions: CONCLUSION: 1. Small bilateral pleural effusions with dependent atelectasis and consolidat ion in both lungs. 2. Mild ileus. Abdomen X-Ray 02/22/18 Signed Impressions: CONCLUSION: Distended stomach with NG in distal stomach. No free air. Liver Ultrasound 02/17/18 Signed Impressions: CONCLUSION: 1. Hepatomegaly with coarsened liver echotexture. No focal liver lesion is heath ntified. 2. Mild splenomegaly. Catheter Placement X-Ray 02/17/18 Signed Impressions: CONCLUSION: 1. Uncomplicated line placement as above. Foot MRI 02/14/18 Signed Impressions: CONCLUSION: 1. Diffuse subcutaneous edema of the foot with mild enhancement along the dors al aspect of the foot. This could represent cellulitis. No abscess is identifie d and there are no findings to indicate osteomyelitis. 2. There is some degree of osseous fusion at the tibiotalar joint and there is severe degenerative change at the subtalar joint and talonavicular joint. 3. Old healed fracture of the fifth metatarsal. Foot X-Ray 02/13/18 Signed Impressions: CONCLUSION: 1. There is a transverse fracture through the mid fifth metatarsal. Adjacent p eriosteal reaction is present suggesting that it is subacute or chronic. 2. There has been prior arthrodesis of the subtalar joint and tibiotalar joint s with osseous fusion. Hypertrophic osteophytes are present at the talonavicula r joint. Head CT 02/12/18 Signed Impressions: CONCLUSION: Chronic small vessel ischemic and atrophic changes. Cervical Spine CT 02/12/18 Signed Impressions: CONCLUSION: Unremarkable study except for slight degenerative spondylosis. CT Angiography 02/12/18 Signed Impressions: CONCLUSION: 1. Possible nodules within the thyroid gland mainly on the right side. 2. Slight fatty liver. 3. No definite pulmonary embolus. Laboratory Test 02/24/18 05:48 White Blood Count 14.8 TH/MM3 Red Blood Count 4.00 MIL/MM3 Hemoglobin 10.9 GM/DL Hematocrit 33.2 % Mean Corpuscular Volume 83.1 FL Mean Corpuscular Hemoglobin 27.3 PG Mean Corpuscular Hemoglobin Concent 32.9 % Red Cell Distribution Width 16.4 % Platelet Count 215 TH/MM3 Mean Platelet Volume 9.2 FL Neutrophils (%) (Auto) 75.4 % Lymphocytes (%) (Auto) 13.8 % Monocytes (%) (Auto) 7.6 % Eosinophils (%) (Auto) 2.9 % Basophils (%) (Auto) 0.3 % Neutrophils # (Auto) 11.2 TH/MM3 Lymphocytes # (Auto) 2.0 TH/MM3 Monocytes # (Auto) 1.1 TH/MM3 Eosinophils # (Auto) 0.4 TH/MM3 Basophils # (Auto) 0.0 TH/MM3 CBC Comment DIFF FINAL Differential Comment Blood Urea Nitrogen 107 MG/DL Creatinine 7.99 MG/DL Random Glucose 167 MG/DL Albumin 2.3 GM/DL Calcium Level 8.2 MG/DL Phosphorus Level 9.4 MG/DL Sodium Level 141 MEQ/L Potassium Level 3.7 MEQ/L Chloride Level 99 MEQ/L Carbon Dioxide Level 25.2 MEQ/L Anion Gap 17 MEQ/L Estimat Glomerular Filtration Rate 7 ML/MIN Date/Time Source Procedure Growth Status 02/22/18 20:58 Blood Peripheral Aerobic Blood Culture - Preliminary NO GROWTH IN 1 DAY Resulted 02/22/18 20:58 Blood Peripheral Anaerobic Blood Culture - Preliminary NO GROWTH IN 1 DAY Resulted 02/19/18 08:29 Sputum Endotracheal Gram Stain - Final Complete 02/19/18 08:29 Sputum Endotracheal Sputum Culture - Final RARE GROWTH NORMAL RESPIRATORY DREW Complete 02/19/18 08:30 Urine Catheterized Urine Urine Culture - Final NO GROWTH IN 48 HOURS. Complete Physical Examination HEENT: Normocephalic; atraumatic CHEST: Respirations synchronized with vent via ETT CARDIAC: RRR ABDOMEN: Obese, soft, nontender, bowel sounds active. OG clamped. Rectal bag with small amount of brown stool. SKIN: Normal; no rash; no jaundice. ELECTRICIAN CONSTRUCTOR SUPERVISOR: Alert (BonnetteNevaeh BEDSPREAD INSPECTOR) Assessment and Plan Plan Assessment: - Ileus KUB (02/22) Distended stomach with NG in distal stomach. No free air. CT abdomen and pelvis W/O IV contrast (02/22) Mild ileus. Per RN pt had 700 mL of TF residual this morning, so currently TF on hold. OG clamped. Reglan added by attending last night. Our service has seen pt in October of this year, did an EGD which revealed three ulcers in the antrum and hiatal hernia. - S/P fall, found on floor for over 18 hours, rhabdomyolysis, CK over 7000 on admission - Sepsis- bacteremia- infectious disease following - WILMER, placed on HD during admission Plan: OG to LIWS Red rectal tube to Charlton bag Continue Relistor Relistor subq x 1 Repeat KUB in AM Further recommendations based on clinical course Pt has been seen and examined by myself and Dr. Matute and this note is written on his behalf (Nevaeh Jules) Physician Comments Seen and examined, plan as above. Continue supportive care. Recheck KUB in AM. Further recommendations to follow. Thank you for the consult. (Yuliet Matute MD) Nevaeh Jules Feb 24, 2018 08:58 Yuliet Matute MD Feb 24, 2018 15:32
[2018-02-24] MEDS: ARTIFICIAL TEARS OPTH OINT 3.5 APPLIC/3.5 GM TUBO EACH EYE SCH ×2 (09:00→20:23)
[2018-02-24] MEDS: INSULIN DETEMIR 100 UNITS/ML VIAL SQ SCH ×2 (09:00→21:00)
[2018-02-24] MEDS: FUROSEMIDE 20 MG/2 ML VIAL IV PUSH SCH ×2 (09:08→20:24)
[2018-02-24] MEDS: PANTOPRAZOLE SODIUM 40 MG VIAL IV PUSH SCH (09:08)
[2018-02-24] MEDS: METOPROLOL TARTRATE 25 MG TAB PO SCH ×2 (09:08→20:24)
[2018-02-24] MEDS: DOCUSATE SODIUM 100 MG/10 ML UDC PO SCH ×2 (09:09→20:24)
[2018-02-24] MEDS: HEPARIN SODIUM - SQ 10,000 UNITS/ML VIAL SQ SCH ×2 (09:09→20:24)
[2018-02-24] MEDS: SENNOSIDES SYRUP 8.8 MG/5 ML CUP PO SCH (09:09)
[2018-02-24] MEDS ORDERED: METHYLNALTREXONE BROMIDE 12 MG/0.6 ML VIAL SQ ONE (10:00)
--- NOTE | 2018-02-24 10:54 | HHI.NPPN ---
Subjective History of Present Illness The patient is a 62 yo [place] male with PMHx of DM, CAD, CVA, BPH, HTN, Colon CA, Anemia, GERD, who was brought into this facility on 02/12/18 after brother found him down on the ground at his home for >18hrs. Unclear if he had lost consciousness or the mechanism of his fall as the patient is currently intubated and sedated. Has been diagnosed with MSSA sepsis, but source is not entirely clear. Has hardware in his right ankle but podiatry does not feel that this is the source. Underwent STEF this AM and cardiology is suspicious for mitral valve vegetation, however, formal report is pending. His admitting SCr was 1.32 and has deteriorated to 4.14 at time of consult. He is 10L to the positive and UOP is marginal. Nephrology has been consulted for management of acute renal failure. Appears preserved renal functions predating this admission, with baseline SCr 0.6-0.8 as per Oct 2017 admission. Interval History Patient remains intubated. Review of Systems General General Remarks Patient intubated on ventilatory support. Objective Data Data Vital Signs Date Time Temp Pulse Resp B/P (MAP) Pulse Ox O2 Delivery O2 Flow Rate FiO2 02/24/18 08:38 99 30 02/24/18 08:38 30 02/24/18 08:00 99.3 66 22 156/72 (100) 98 02/24/18 08:00 66 02/24/18 07:00 98 Mechanical Ventilator 40 02/24/18 06:00 68 02/24/18 04:15 99 40 02/24/18 04:00 99.5 67 20 167/75 (105) 99 02/24/18 04:00 67 02/24/18 04:00 40 02/24/18 02:00 70 02/24/18 00:10 99 40 02/24/18 00:00 100.0 70 19 188/86 (120) 99 02/24/18 00:00 70 02/24/18 00:00 40 02/23/18 22:00 75 02/23/18 20:00 74 02/23/18 20:00 40 02/23/18 20:00 99.4 74 24 158/80 (106) 99 02/23/18 19:50 100 40 02/23/18 19:00 73 02/23/18 19:00 98 Mechanical Ventilator 40 02/23/18 18:00 74 02/23/18 17:00 74 26 167/74 (105) 97 02/23/18 17:00 74 02/23/18 16:00 77 02/23/18 16:00 77 25 155/70 (98) 96 02/23/18 16:00 40 02/23/18 15:00 81 02/23/18 15:00 81 27 158/71 (100) 94 02/23/18 14:59 94 40 02/23/18 14:40 90 28 158/72 (100) 97 02/23/18 14:40 90 02/23/18 14:00 70 28 157/70 (99) 99 02/23/18 14:00 70 02/23/18 13:00 70 28 152/67 (95) 99 02/23/18 13:00 70 02/23/18 12:00 70 02/23/18 12:00 98.6 70 29 153/67 (95) 98 02/23/18 12:00 40 02/23/18 10:58 98 40 -: 02/24/18 0548 02/24/18 0548 Tubes & Lines: Vas-Cath (RIJ) Physical Exam General Appearance: Comfortable, Obese Eyes Eye Exam: Sclera White Neck Neck Exam: Trachea Midline Pulmonary Resp Exam: Clear Bilaterally, Breath Sounds Equal, Decreased Bases Cardiology CV Exam: Regular, Normal Sinus Rhythm Gastrointestinal/Abdomen GI Exam: Soft, Non-Tender Integumentary Skin Exam: Clear, Warm Extremeties Extremities Exam: Moderate Edema (2 plus pitting edema ankles.), Pitting Edema (Generalized edema.) Neurologic Neuro Exam: Sedated Assessment/Plan Discussed Condition With: Sibling Problem List: (1) Acute renal failure ICD Codes: N17.9 - Acute kidney failure, unspecified Plan: Although the patient's urinary output has improved somewhat still has worsening azotemia today. Patient still dialysis dependent. Hemodialysis today as ordered. No evidence of significant renal recovery at this time as discussed with his sisters by the bedside. Medications should be adjusted for the patient's renal decline. Avoid nephrotoxic medications such as iodinated contrast dyes and NSAIDs. Avoid gadolinium. (2) Sepsis ICD Codes: A41.9 - Sepsis, unspecified organism Status: Acute Plan: Source? Pending STEF results Abx as per ID (3) Rhabdomyolysis ICD Codes: M62.82 - Rhabdomyolysis Status: Acute Plan: Apparent given elevated CPK and urinary sediment. CPK trending down. Continue to monitor. (4) Adrenal nodule ICD Codes: E27.9 - Disorder of adrenal gland, unspecified Plan: Incidentally noted on CT scan. 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 Problem Qualifiers (1) Rhabdomyolysis: Qualified Codes: T79.6XXA - Traumatic ischemia of muscle, initial encounter Jeffy Brewer MD Feb 24, 2018 10:54
[2018-02-24] MEDS: LABETALOL HCL 100 MG/20 ML VIAL IV PUSH PRN (13:17)
--- NOTE | 2018-02-24 23:02 | HHI.IDPN ---
Subjective Subjective Remarks Ptcont to have fever up to 101.6 F remains on vent remains on Hemodialysis. His blood cultures are + coag negative staph Nl resp maite in sputum clx Antibiotics azactam, micafungin dapto added on 02/19 cefazoline Lines PIVs look ok Past Medical History Past Medical History Diabetes Hyperlipidemia Chronic pain syndrome bilateral lower extremity ulcers BPH Hypertension Colon cancer s/p partial colectomy prior NSTEMI severe 2-vessel CAD managed medically old RBBB prior GI bleed anemia secondary to GI bleeding Arthritis CHF, unknown type GERD Past Surgical History partial colectomy skin grafts to right ankle left ankle surgery CABG Allergies: Coded Allergies: No Known Allergies (Unverified , 10/21/17) Objective . Vital Signs Date Time Temp Pulse Resp B/P (MAP) Pulse Ox O2 Delivery O2 Flow Rate FiO2 02/24/18 22:00 69 02/24/18 20:00 66 02/24/18 20:00 98.3 66 23 170/77 (108) 97 02/24/18 20:00 30 02/24/18 19:47 97 30 02/24/18 19:00 96 Mechanical Ventilator 35 02/24/18 18:00 64 02/24/18 17:02 95 30 02/24/18 16:00 60 02/24/18 16:00 30 02/24/18 16:00 98.7 60 23 100/57 (71) 92 02/24/18 14:00 62 02/24/18 12:00 30 02/24/18 12:00 99.0 63 22 157/72 (100) 97 02/24/18 12:00 63 02/24/18 11:51 97 30 02/24/18 10:00 66 02/24/18 08:38 99 30 02/24/18 08:38 30 02/24/18 08:00 30 02/24/18 08:00 99.3 66 22 156/72 (100) 98 02/24/18 08:00 66 02/24/18 07:00 98 Mechanical Ventilator 40 02/24/18 06:00 68 02/24/18 04:15 99 40 02/24/18 04:00 99.5 67 20 167/75 (105) 99 02/24/18 04:00 67 02/24/18 04:00 40 02/24/18 02:00 70 02/24/18 00:10 99 40 02/24/18 00:00 100.0 70 19 188/86 (120) 99 02/24/18 00:00 70 02/24/18 00:00 40 02/24/18 02/24/18 02/25/18 15:00 23:00 07:00 Intake Total 50 ml 210 ml Output Total 5250 ml Balance 50 ml -5040 ml IV Total 50 ml 210 ml Output Urine Total 650 ml Stool Total 75 ml Gastric Drainage Total 1025 ml Hemodialysis 3500 ml . Laboratory Tests Test 02/23/18 04:24 02/24/18 05:48 White Blood Count 15.2 TH/MM3 14.8 TH/MM3 Red Blood Count 3.99 MIL/MM3 4.00 MIL/MM3 Hemoglobin 10.7 GM/DL 10.9 GM/DL Hematocrit 33.1 % 33.2 % Mean Corpuscular Volume 83.0 FL 83.1 FL Mean Corpuscular Hemoglobin 26.8 PG 27.3 PG Mean Corpuscular Hemoglobin Concent 32.3 % 32.9 % Red Cell Distribution Width 16.9 % 16.4 % Platelet Count 182 TH/MM3 215 TH/MM3 Mean Platelet Volume 8.9 FL 9.2 FL Neutrophils (%) (Auto) 72.2 % 75.4 % Lymphocytes (%) (Auto) 13.6 % 13.8 % Monocytes (%) (Auto) 10.9 % 7.6 % Eosinophils (%) (Auto) 2.8 % 2.9 % Basophils (%) (Auto) 0.5 % 0.3 % Neutrophils # (Auto) 11.0 TH/MM3 11.2 TH/MM3 Lymphocytes # (Auto) 2.1 TH/MM3 2.0 TH/MM3 Monocytes # (Auto) 1.7 TH/MM3 1.1 TH/MM3 Eosinophils # (Auto) 0.4 TH/MM3 0.4 TH/MM3 Basophils # (Auto) 0.1 TH/MM3 0.0 TH/MM3 CBC Comment DIFF FINAL DIFF FINAL Differential Comment Laboratory Tests Test 02/23/18 04:24 02/24/18 05:48 Blood Urea Nitrogen 76 MG/DL 107 MG/DL Creatinine 6.20 MG/DL 7.99 MG/DL Random Glucose 97 MG/DL 167 MG/DL Total Protein 7.3 GM/DL Albumin 2.5 GM/DL 2.3 GM/DL Calcium Level 8.0 MG/DL 8.2 MG/DL Phosphorus Level 6.8 MG/DL 9.4 MG/DL Magnesium Level 2.7 MG/DL Alkaline Phosphatase 116 U/L Aspartate Amino Transf (AST/SGOT) 26 U/L Alanine Aminotransferase (ALT/SGPT) 6 U/L Total Bilirubin 0.6 MG/DL Sodium Level 142 MEQ/L 141 MEQ/L Potassium Level 3.7 MEQ/L 3.7 MEQ/L Chloride Level 101 MEQ/L 99 MEQ/L Carbon Dioxide Level 26.1 MEQ/L 25.2 MEQ/L Anion Gap 15 MEQ/L 17 MEQ/L Estimat Glomerular Filtration Rate 9 ML/MIN 7 ML/MIN Microbiology Date/Time Source Procedure Growth Status 02/22/18 20:58 Blood Peripheral Aerobic Blood Culture - Preliminary NO GROWTH IN 2 DAYS Resulted 02/22/18 20:58 Blood Peripheral Anaerobic Blood Culture - Preliminary NO GROWTH IN 2 DAYS Resulted 02/22/18 20:50 Blood Peripheral Aerobic Blood Culture - Preliminary NO GROWTH IN 2 DAYS Resulted 02/22/18 20:50 Blood Peripheral Anaerobic Blood Culture - Preliminary NO GROWTH IN 2 DAYS Resulted Imaging Last Impressions Chest X-Ray 02/23/18 0600 Signed Impressions: CONCLUSION: Lungs remain grossly clear. Abdomen/Pelvis CT 02/22/18 Signed Impressions: CONCLUSION: 1. Small bilateral pleural effusions with dependent atelectasis and consolidat ion in both lungs. 2. Mild ileus. Abdomen X-Ray 02/22/18 Signed Impressions: CONCLUSION: Distended stomach with NG in distal stomach. No free air. Liver Ultrasound 02/17/18 Signed Impressions: CONCLUSION: 1. Hepatomegaly with coarsened liver echotexture. No focal liver lesion is heath ntified. 2. Mild splenomegaly. Catheter Placement X-Ray 02/17/18 Signed Impressions: CONCLUSION: 1. Uncomplicated line placement as above. Foot MRI 02/14/18 Signed Impressions: CONCLUSION: 1. Diffuse subcutaneous edema of the foot with mild enhancement along the dors al aspect of the foot. This could represent cellulitis. No abscess is identifie d and there are no findings to indicate osteomyelitis. 2. There is some degree of osseous fusion at the tibiotalar joint and there is severe degenerative change at the subtalar joint and talonavicular joint. 3. Old healed fracture of the fifth metatarsal. Foot X-Ray 02/13/18 Signed Impressions: CONCLUSION: 1. There is a transverse fracture through the mid fifth metatarsal. Adjacent p eriosteal reaction is present suggesting that it is subacute or chronic. 2. There has been prior arthrodesis of the subtalar joint and tibiotalar joint s with osseous fusion. Hypertrophic osteophytes are present at the talonavicula r joint. Head CT 02/12/18 Signed Impressions: CONCLUSION: Chronic small vessel ischemic and atrophic changes. Cervical Spine CT 02/12/18 Signed Impressions: CONCLUSION: Unremarkable study except for slight degenerative spondylosis. CT Angiography 02/12/18 Signed Impressions: CONCLUSION: 1. Possible nodules within the thyroid gland mainly on the right side. 2. Slight fatty liver. 3. No definite pulmonary embolus. Physical Exam CONSTITUTIONAL/GENERAL: This is a morbidly obese patient, intubated TUBES/LINES/DRAINS: SKIN: No jaundice, rashes, or lesions. Skin temperature appropriate. HEAD: Atraumatic. Normocephalic. EYES: Pupils equal and round and reactive. No scleral icterus. No injection or drainage. Fundi not examined. ENT: Intubated. NECK: Trachea midline. Supple, nontender. No palpable thyroid enlargement or nodularity. CARDIOVASCULAR: RRR. No murmurs, rubs or gallops RESPIRATORY/CHEST: Symmetric, unlabored respirations. Clear to auscultation. Breath sounds equal bilaterally. No wheezes, rales, or rhonchi. GASTROINTESTINAL: Abdomen less tight very distended and tympanic mainly in LUQ area GENITOURINARY: Without palpable bladder distension. Charlton catheter in place with small amount of urine MUSCULOSKELETAL: Extremities without clubbing, cyanosis, Marked generalysed edema. Bilateral LE erythema with induration noted. NEUROLOGICAL: sedated. On vent PSYCHIATRIC:unable to assess Assessment & Plan Remarks Severe Sepsis present on admission Mitral valve endocarditis, MSSA MSSA high grade bacteremia. Bilateral LE cellulitis. Ho Rt foot hardware infection MRI w/o e/o osteomyelitis in either feet acute metabolic encephalopathy:sepsis, metabolic. acute resp failure on vent. acute renal failure oliguric: sepsis, meds oxacillin, vanco etc. May end up needing HD. CAD s/p CABG ARF with oliguria and fluid overload : no e/o interstitial nephritis - nephrology following, On HD Persistent fever. Source not apparent for now Ileus - worsening leukocytosis: improved Recs: cont Ancef IV q8hrs equivalent. dc azactam, micafunfgin, cont dapto for now St epi fu P BC results repeat BC further rec's per final clx chk stool for C.diff will repeat CBC consider to change lines if persistentn fever Lois Otero MD Feb 24, 2018 23:02
[2018-02-25] VITALS (20 sets, daily range): BP systolic 153–171; BP diastolic 71–80; PULSE 69–76; RESP 21–29; TEMP 98.4–99.3; O2SAT 96–100
[2018-02-25] MEDS: ceFAZolin 2 GM/DEX PREMIX 50 ML IV SCH ×2 (00:14→12:06)
[2018-02-25] MEDS: hydrALAZINE HCL 25 MG TAB PO SCH ×3 (01:45→17:46)
[2018-02-25] MEDS: INSULIN NovoLIN REGULAR SUPPLEMENTAL SCALE SQ SCH ×6 (02:00→22:00)
[2018-02-25] MEDS: CHLORHEXIDINE GLUCONATE 2 % 1 PACK (2 CLOTHS) TOP SCH (02:01)
[2018-02-25] MEDS: DEXMEDETOMIDINE INJ 1,000 MCG in SODIUM CHLOR 0.9% 250 ML INJ 240 ML IV PRN ×4 (04:27→21:51)
[2018-02-25] MEDS: LABETALOL HCL 100 MG/20 ML VIAL IV PUSH PRN (05:14)
[2018-02-25] MEDS: METOCLOPRAMIDE HCL 10 MG/2 ML VIAL IV SCH ×3 (05:14→20:52)
--- NOTE | 2018-02-25 05:29 | RADRPT ---
EXAM DATE: 02/25/2018 5:24 AM EDT AGE/SEX: 62 years / Male INDICATIONS: Short of breath. CLINICAL DATA: This is the patient's subsequent encounter. Patient reports that signs and symptoms h ave been present for 1 week and indicates a pain score of 0/10. MEDICAL/SURGICAL HISTORY: . Carcinoma, colon. Gastroesophageal reflux disease. Congestive heart failure. Hypertension. Ulcer. Arthritis. Diabetic. . Colon resection. Cholecystectomy. [place] [facility] [place]. . FINDINGS: 2 AP supine views of the abdomen. Nasogastric tube is in place with the tip in the distal stomach. S cattered gas in colon. Gas filled distention of the stomach is no longer seen. CONCLUSION: Nasogastric tube in place. Gas-filled distention of the stomach no longer seen. Nonspecific bowel gas pattern. Electronically signed by: Ken Singleton MD 02/25/2018 5:28 AM EDT
--- NOTE | 2018-02-25 05:40 | RADRPT ---
EXAM DATE: 02/25/2018 5:26 AM EDT AGE/SEX: 62 years / Male INDICATIONS: Short of breath. CLINICAL DATA: This is the patient's subsequent encounter. Patient reports that signs and symptoms h ave been present for 1 week and indicates a pain score of 0/10. MEDICAL/SURGICAL HISTORY: Non-responsive. Carcinoma, colon. Gastroesophageal reflux disease. Co ngestive heart failure. Hypertension. Ulcer. Arthritis. Diabetic. . Colon resection. Cholecystectomy . COMPARISON: [facility] – [place], CHEST SINGLE AP, 02/23/2018. . FINDINGS: Single AP view of the chest. Endotracheal tube and nasogastric tube remain in place. Right subclavian central venous catheter also remains in place. Mild patchy opacity of the left lung base is now seen . Right lung clear. Cardiomediastinal silhouette unchanged. No evidence of pneumothorax. CONCLUSION: Patchy opacity left lung base indicating atelectasis versus mild consolidation. Electronically signed by: Ken Singleton MD 02/25/2018 5:39 AM EDT
[2018-02-25 06:13] LABS: AUTOMATED NEUTROPHIL # 8.3 TH/MM3 (1.8-7.7); BASOPHIL # 0.1 TH/MM3 (0-0.2); BASOPHIL % 0.6 % (0.0-2.0); EOSINOPHIL # 0.5 TH/MM3 (0-0.4); EOSINOPHIL % 4.1 % (0.0-4.0); HEMATOCRIT 33.5 % (39.0-51.0); HEMOGLOBIN 10.8 GM/DL (13.0-17.0); LYMPH % 14.8 % (9.0-44.0); LYMPHOCYTE # 1.7 TH/MM3 (1.0-4.8); MEAN CELL VOLUME 83.3 FL (80.0-100.0); MEAN CORPUSCULAR HEMOGLOBIN 26.9 PG (27.0-34.0); MEAN CORPUSCULAR HGB CONC 32.2 % (32.0-36.0); MEAN PLATELET VOLUME 9.5 FL (7.0-11.0); MONO % 7.6 % (0.0-8.0); MONOCYTE # 0.9 TH/MM3 (0-0.9); NEUT % 72.9 % (16.0-70.0); PLATELET COUNT 251 TH/MM3 (150-450); RED BLOOD COUNT 4.02 MIL/MM3 (4.50-5.90); RED CELL DISTRIBUTION WIDTH 16.6 % (11.6-17.2); WHITE BLOOD COUNT 11.3 TH/MM3 (4.0-11.0)
[2018-02-25 06:28] LABS: ALT (GPT) 8 U/L (12-78); AST (GOT) 30 U/L (15-37); BICARBONATE 23.7 MEQ/L (21.0-32.0); BLOOD UREA NITROGEN 93 MG/DL (7-18); CALCIUM 8.1 MG/DL (8.5-10.1); CHLORIDE 98 MEQ/L (98-107); CREATININE 6.43 MG/DL (0.60-1.30); GLOMERULAR FILTRATION RATE 9 ML/MIN (>89); GLUCOSE,RANDOM 195 MG/DL (74-106); MAGNESIUM 2.9 MG/DL (1.5-2.5); SODIUM (NA) 141 MEQ/L (136-145)
[2018-02-25 06:39] LABS: ALKALINE PHOSPHATASE 98 U/L (45-117); TOTAL BILIRUBIN ADULT 0.6 MG/DL (0.2-1.0); TOTAL PROTEIN 7.5 GM/DL (6.4-8.2)
[2018-02-25] MEDS: CHLORHEXIDINE 0.12% (ORAL KIT) 15 ML CUP MT SCH ×2 (08:00→20:52)
[2018-02-25] MEDS: SENNOSIDES SYRUP 8.8 MG/5 ML CUP PO SCH (08:12)
[2018-02-25] MEDS: DOCUSATE SODIUM 100 MG/10 ML UDC PO SCH ×2 (08:12→20:53)
[2018-02-25] MEDS: METOPROLOL TARTRATE 25 MG TAB PO SCH ×2 (08:12→20:53)
[2018-02-25] MEDS: HEPARIN SODIUM - SQ 10,000 UNITS/ML VIAL SQ SCH ×2 (08:13→20:53)
[2018-02-25] MEDS: PANTOPRAZOLE SODIUM 40 MG VIAL IV PUSH SCH (08:14)
[2018-02-25] MEDS: FUROSEMIDE 20 MG/2 ML VIAL IV PUSH SCH ×2 (08:14→20:53)
[2018-02-25] MEDS: ARTIFICIAL TEARS OPTH OINT 3.5 APPLIC/3.5 GM TUBO EACH EYE SCH ×2 (08:16→20:52)
[2018-02-25] MEDS: INSULIN DETEMIR 100 UNITS/ML VIAL SQ SCH ×2 (08:18→20:53)
[2018-02-25 08:52] LABS: PHOSPHORUS 8.7 MG/DL (2.5-4.9)
--- NOTE | 2018-02-25 08:57 | HHI.GIFU ---
Subjective Remarks Pt resting in bed Remains on Precedex, but opens eyes to verbal stimuli Denies any abdominal pain Per RN approx 200 mL of output from OG over night Abdomen is soft (Nevaeh Jules) Objective Vitals I&O Vital Signs Date Time Temp Pulse Resp B/P (MAP) Pulse Ox O2 Delivery O2 Flow Rate FiO2 02/25/18 07:50 100 30 02/25/18 07:50 30 02/25/18 06:00 72 02/25/18 05:10 98 30 02/25/18 04:00 30 02/25/18 04:00 98.8 71 22 171/80 (110) 97 02/25/18 04:00 71 02/25/18 03:28 97 30 02/25/18 02:00 70 02/25/18 00:18 98 30 02/25/18 00:00 69 02/25/18 00:00 99.0 69 21 165/77 (106) 97 02/25/18 00:00 30 02/24/18 22:00 69 02/24/18 20:00 66 02/24/18 20:00 98.3 66 23 170/77 (108) 97 02/24/18 20:00 30 02/24/18 19:47 97 30 02/24/18 19:00 96 Mechanical Ventilator 35 02/24/18 18:00 64 02/24/18 17:02 95 30 02/24/18 16:00 60 02/24/18 16:00 30 02/24/18 16:00 98.7 60 23 100/57 (71) 92 02/24/18 14:00 62 02/24/18 12:00 30 02/24/18 12:00 99.0 63 22 157/72 (100) 97 02/24/18 12:00 63 02/24/18 11:51 97 30 02/24/18 10:00 66 I/O 02/24/18 02/24/18 02/24/18 02/25/18 02/25/18 02/25/18 07:00 15:00 23:00 07:00 15:00 23:00 Intake Total 790 ml 50 ml 210 ml 325 ml Output Total 900 ml 5250 ml 860 ml Balance -110 ml 50 ml -5040 ml -535 ml IV Total 550 ml 50 ml 210 ml 325 ml Tube Feeding 0 ml 0 ml Other 240 ml Output Urine Total 700 ml 650 ml 600 ml Stool Total 100 ml 75 ml 60 ml Gastric Drainage Total 100 ml 1025 ml 200 ml Hemodialysis 3500 ml # Bowel Movements 1 Laboratory Laboratory Tests Test 02/25/18 03:16 White Blood Count 11.3 Red Blood Count 4.02 Hemoglobin 10.8 Hematocrit 33.5 Mean Corpuscular Volume 83.3 Mean Corpuscular Hemoglobin 26.9 Mean Corpuscular Hemoglobin Concent 32.2 Red Cell Distribution Width 16.6 Platelet Count 251 Mean Platelet Volume 9.5 Neutrophils (%) (Auto) 72.9 Lymphocytes (%) (Auto) 14.8 Monocytes (%) (Auto) 7.6 Eosinophils (%) (Auto) 4.1 Basophils (%) (Auto) 0.6 Neutrophils # (Auto) 8.3 Lymphocytes # (Auto) 1.7 Monocytes # (Auto) 0.9 Eosinophils # (Auto) 0.5 Basophils # (Auto) 0.1 CBC Comment DIFF FINAL Differential Comment Blood Urea Nitrogen 93 Creatinine 6.43 Random Glucose 195 Total Protein 7.5 Albumin 3.0 Calcium Level 8.1 Phosphorus Level 8.7 Magnesium Level 2.9 Alkaline Phosphatase 98 Aspartate Amino Transf (AST/SGOT) 30 Alanine Aminotransferase (ALT/SGPT) 8 Total Bilirubin 0.6 Sodium Level 141 Potassium Level 4.0 Chloride Level 98 Carbon Dioxide Level 23.7 Anion Gap 19 Estimat Glomerular Filtration Rate 9 Total Creatine Kinase 370 Creatine Kinase MB 3.2 Creatine Kinase MB % 0.9 Date/Time Source Procedure Growth Status 02/22/18 20:58 Blood Peripheral Aerobic Blood Culture - Preliminary NO GROWTH IN 2 DAYS Resulted 02/22/18 20:58 Blood Peripheral Anaerobic Blood Culture - Preliminary NO GROWTH IN 2 DAYS Resulted 02/19/18 08:29 Sputum Endotracheal Gram Stain - Final Complete 02/19/18 08:29 Sputum Endotracheal Sputum Culture - Final RARE GROWTH NORMAL RESPIRATORY DREW Complete 02/19/18 08:30 Urine Catheterized Urine Urine Culture - Final NO GROWTH IN 48 HOURS. Complete Imaging Last Impressions Chest X-Ray 02/25/18 0600 Signed Impressions: CONCLUSION: Patchy opacity left lung base indicating atelectasis versus mild consolidation. Abdomen X-Ray 02/25/18 06 Signed Impressions: CONCLUSION: Nasogastric tube in place. Gas-filled distention of the stomach no longer seen. Nonspecific bowel gas pattern. Abdomen/Pelvis CT 02/22/18 Signed Impressions: CONCLUSION: 1. Small bilateral pleural effusions with dependent atelectasis and consolidat ion in both lungs. 2. Mild ileus. Liver Ultrasound 02/17/18 Signed Impressions: CONCLUSION: 1. Hepatomegaly with coarsened liver echotexture. No focal liver lesion is heath ntified. 2. Mild splenomegaly. Catheter Placement X-Ray 02/17/18 Signed Impressions: CONCLUSION: 1. Uncomplicated line placement as above. Foot MRI 02/14/18 Signed Impressions: CONCLUSION: 1. Diffuse subcutaneous edema of the foot with mild enhancement along the dors al aspect of the foot. This could represent cellulitis. No abscess is identifie d and there are no findings to indicate osteomyelitis. 2. There is some degree of osseous fusion at the tibiotalar joint and there is severe degenerative change at the subtalar joint and talonavicular joint. 3. Old healed fracture of the fifth metatarsal. Foot X-Ray 02/13/18 Signed Impressions: CONCLUSION: 1. There is a transverse fracture through the mid fifth metatarsal. Adjacent p eriosteal reaction is present suggesting that it is subacute or chronic. 2. There has been prior arthrodesis of the subtalar joint and tibiotalar joint s with osseous fusion. Hypertrophic osteophytes are present at the talonavicula r joint. Head CT 02/12/18 Signed Impressions: CONCLUSION: Chronic small vessel ischemic and atrophic changes. Cervical Spine CT 02/12/18 Signed Impressions: CONCLUSION: Unremarkable study except for slight degenerative spondylosis. CT Angiography 02/12/18 Signed Impressions: CONCLUSION: 1. Possible nodules within the thyroid gland mainly on the right side. 2. Slight fatty liver. 3. No definite pulmonary embolus. Physical Exam HEENT: Normocephalic; atraumatic CHEST: Synchronized with vent via ETT CARDIAC: RRR ABDOMEN: Obese, soft, nontender, bowel sounds active SKIN: Normal; no rash; no jaundice. TRAFFIC CONTROL FLAGGER: Awake (Nevaeh Jules [employer]) Assessment and Plan Plan Assessment: - Ileus KUB (02/22) Distended stomach with NG in distal stomach. No free air. CT abdomen and pelvis W/O IV contrast (02/22) Mild ileus. Per RN pt had 700 mL of TF residual this morning, so currently TF on hold. OG clamped. Reglan added by attending last night. Our service has seen pt in October of this year, did an EGD which revealed three ulcers in the antrum and hiatal hernia. - S/P fall, found on floor for over 18 hours, rhabdomyolysis, CK over 7000 on admission - Sepsis- bacteremia- infectious disease following - WILMER, placed on HD during admission (02/25) Per RN 200 mL of drainage from OG overnight. Abdomen is soft. Repeat KUB --> Nasogastric tube in place. Gas-filled distention of the stomach no longer seen. Nonspecific bowel gas pattern. Plan: Start trickle feeds Check residuals as per protocol Continue Reglan Further recommendations based on clinical course Pt has been seen and examined by myself and Dr. Matute and this note is written on his behalf (Nevaeh Jules) Physician Comments Seen and examined, plan as above. Improving clinically and by imaging. Will follow up with you. (Yuliet Matute MD) Nevaeh Jules Feb 25, 2018 08:57 Yuliet Matute MD Feb 25, 2018 10:24
--- NOTE | 2018-02-25 11:48 | HHI.NPPN ---
Subjective History of Present Illness The patient is a 62 yo [place] male with PMHx of DM, CAD, CVA, BPH, HTN, Colon CA, Anemia, GERD, who was brought into this facility on 02/12/18 after brother found him down on the ground at his home for >18hrs. Unclear if he had lost consciousness or the mechanism of his fall as the patient is currently intubated and sedated. Has been diagnosed with MSSA sepsis, but source is not entirely clear. Has hardware in his right ankle but podiatry does not feel that this is the source. Underwent STEF this AM and cardiology is suspicious for mitral valve vegetation, however, formal report is pending. His admitting SCr was 1.32 and has deteriorated to 4.14 at time of consult. He is 10L to the positive and UOP is marginal. Nephrology has been consulted for management of acute renal failure. Appears preserved renal functions predating this admission, with baseline SCr 0.6-0.8 as per Oct 2017 admission. Interval History Patient remains on the ventilator. Review of Systems General General Remarks Patient intubated on ventilatory support. Objective Data Data Vital Signs Date Time Temp Pulse Resp B/P (MAP) Pulse Ox O2 Delivery O2 Flow Rate FiO2 02/25/18 11:36 98 30 02/25/18 07:50 100 30 02/25/18 07:50 30 02/25/18 06:00 72 02/25/18 05:10 98 30 02/25/18 04:00 30 02/25/18 04:00 98.8 71 22 171/80 (110) 97 02/25/18 04:00 71 02/25/18 03:28 97 30 02/25/18 02:00 70 02/25/18 00:18 98 30 02/25/18 00:00 69 02/25/18 00:00 99.0 69 21 165/77 (106) 97 02/25/18 00:00 30 02/24/18 22:00 69 02/24/18 20:00 66 02/24/18 20:00 98.3 66 23 170/77 (108) 97 02/24/18 20:00 30 02/24/18 19:47 97 30 02/24/18 19:00 96 Mechanical Ventilator 35 02/24/18 18:00 64 02/24/18 17:02 95 30 02/24/18 16:00 60 02/24/18 16:00 30 02/24/18 16:00 98.7 60 23 100/57 (71) 92 02/24/18 14:00 62 02/24/18 12:00 30 02/24/18 12:00 99.0 63 22 157/72 (100) 97 02/24/18 12:00 63 02/24/18 11:51 97 30 -: 02/25/18 0316 02/25/18 0316 Tubes & Lines: Vas-Cath (RIJ) Physical Exam General Appearance: Comfortable, Obese Eyes Eye Exam: Sclera White Neck Neck Exam: Trachea Midline Pulmonary Resp Exam: Clear Bilaterally, Breath Sounds Equal, Decreased Bases Cardiology CV Exam: Regular, Normal Sinus Rhythm Gastrointestinal/Abdomen GI Exam: Soft, Non-Tender Integumentary Skin Exam: Clear, Warm Extremeties Extremities Exam: Moderate Edema (2 plus pitting edema ankles.), Pitting Edema (Generalized edema.) Neurologic Neuro Exam: Sedated Assessment/Plan Discussed Condition With: Sibling Problem List: (1) Acute renal failure ICD Codes: N17.9 - Acute kidney failure, unspecified Plan: Urine output over 1 L liter last 24 hours. Continue diuretics. Reevaluate tomorrow but will likely need another dialysis session. Patient has hyperphosphatemia but no value in starting oral phosphate binders as the patient is already on Nepro tube feeding. No evidence of significant renal recovery at this time as discussed with his sisters by the bedside. Medications should be adjusted for the patient's renal decline. Avoid nephrotoxic medications such as iodinated contrast dyes and NSAIDs. Avoid gadolinium. (2) Sepsis ICD Codes: A41.9 - Sepsis, unspecified organism Status: Acute Plan: Source? Pending STEF results Abx as per ID (3) Rhabdomyolysis ICD Codes: M62.82 - Rhabdomyolysis Status: Acute Plan: Apparent given elevated CPK and urinary sediment. CPK trending down. Continue to monitor. (4) Adrenal nodule ICD Codes: E27.9 - Disorder of adrenal gland, unspecified Plan: Incidentally noted on CT scan. 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 Problem Qualifiers (1) Rhabdomyolysis: Qualified Codes: T79.6XXA - Traumatic ischemia of muscle, initial encounter Jeffy Brewer MD Feb 25, 2018 11:48
--- NOTE | 2018-02-25 16:54 | HHI.IDPN ---
Subjective Subjective Remarks no fever remains on vent remains on Hemodialysis. Last blood cultures with GPC again Nl resp maite in sputum clx Antibiotics dapto cefazoline Lines PIVs look ok Past Medical History Past Medical History Diabetes Hyperlipidemia Chronic pain syndrome bilateral lower extremity ulcers BPH Hypertension Colon cancer s/p partial colectomy prior NSTEMI severe 2-vessel CAD managed medically old RBBB prior GI bleed anemia secondary to GI bleeding Arthritis CHF, unknown type GERD Past Surgical History partial colectomy skin grafts to right ankle left ankle surgery CABG Allergies: Coded Allergies: No Known Allergies (Unverified , 10/21/17) Objective . Vital Signs Date Time Temp Pulse Resp B/P (MAP) Pulse Ox O2 Delivery O2 Flow Rate FiO2 02/25/18 16:00 98.7 74 28 153/71 (98) 98 02/25/18 16:00 30 02/25/18 16:00 74 02/25/18 15:43 98 30 02/25/18 14:00 76 02/25/18 12:00 30 02/25/18 12:00 98.8 75 23 155/72 (99) 98 02/25/18 12:00 75 02/25/18 11:36 98 30 02/25/18 10:00 74 02/25/18 09:30 30 02/25/18 08:00 98.4 73 27 166/77 (106) 98 02/25/18 08:00 30 02/25/18 08:00 73 02/25/18 07:50 100 30 02/25/18 07:50 30 02/25/18 07:00 97 Mechanical Ventilator 35 02/25/18 06:00 72 02/25/18 05:10 98 30 02/25/18 04:00 30 02/25/18 04:00 98.8 71 22 171/80 (110) 97 02/25/18 04:00 71 02/25/18 03:28 97 30 02/25/18 02:00 70 02/25/18 00:18 98 30 02/25/18 00:00 69 02/25/18 00:00 99.0 69 21 165/77 (106) 97 02/25/18 00:00 30 02/24/18 22:00 69 02/24/18 20:00 66 02/24/18 20:00 98.3 66 23 170/77 (108) 97 02/24/18 20:00 30 02/24/18 19:47 97 30 02/24/18 19:00 96 Mechanical Ventilator 35 02/24/18 18:00 64 02/24/18 17:02 95 30 . Laboratory Tests Test 02/24/18 05:48 02/25/18 03:16 White Blood Count 14.8 TH/MM3 11.3 TH/MM3 Red Blood Count 4.00 MIL/MM3 4.02 MIL/MM3 Hemoglobin 10.9 GM/DL 10.8 GM/DL Hematocrit 33.2 % 33.5 % Mean Corpuscular Volume 83.1 FL 83.3 FL Mean Corpuscular Hemoglobin 27.3 PG 26.9 PG Mean Corpuscular Hemoglobin Concent 32.9 % 32.2 % Red Cell Distribution Width 16.4 % 16.6 % Platelet Count 215 TH/MM3 251 TH/MM3 Mean Platelet Volume 9.2 FL 9.5 FL Neutrophils (%) (Auto) 75.4 % 72.9 % Lymphocytes (%) (Auto) 13.8 % 14.8 % Monocytes (%) (Auto) 7.6 % 7.6 % Eosinophils (%) (Auto) 2.9 % 4.1 % Basophils (%) (Auto) 0.3 % 0.6 % Neutrophils # (Auto) 11.2 TH/MM3 8.3 TH/MM3 Lymphocytes # (Auto) 2.0 TH/MM3 1.7 TH/MM3 Monocytes # (Auto) 1.1 TH/MM3 0.9 TH/MM3 Eosinophils # (Auto) 0.4 TH/MM3 0.5 TH/MM3 Basophils # (Auto) 0.0 TH/MM3 0.1 TH/MM3 CBC Comment DIFF FINAL DIFF FINAL Differential Comment Laboratory Tests Test 02/24/18 05:48 02/25/18 03:16 Blood Urea Nitrogen 107 MG/DL 93 MG/DL Creatinine 7.99 MG/DL 6.43 MG/DL Random Glucose 167 MG/DL 195 MG/DL Albumin 2.3 GM/DL 3.0 GM/DL Calcium Level 8.2 MG/DL 8.1 MG/DL Phosphorus Level 9.4 MG/DL 8.7 MG/DL Sodium Level 141 MEQ/L 141 MEQ/L Potassium Level 3.7 MEQ/L 4.0 MEQ/L Chloride Level 99 MEQ/L 98 MEQ/L Carbon Dioxide Level 25.2 MEQ/L 23.7 MEQ/L Anion Gap 17 MEQ/L 19 MEQ/L Estimat Glomerular Filtration Rate 7 ML/MIN 9 ML/MIN Total Protein 7.5 GM/DL Magnesium Level 2.9 MG/DL Alkaline Phosphatase 98 U/L Aspartate Amino Transf (AST/SGOT) 30 U/L Alanine Aminotransferase (ALT/SGPT) 8 U/L Total Bilirubin 0.6 MG/DL Total Creatine Kinase 370 U/L Creatine Kinase MB 3.2 NG/ML Creatine Kinase MB % 0.9 % Microbiology Date/Time Source Procedure Growth Status 02/22/18 20:58 Blood Peripheral Aerobic Blood Culture - Preliminary NO GROWTH IN 3 DAYS Resulted 02/22/18 20:58 Blood Peripheral Anaerobic Blood Culture - Preliminary NO GROWTH IN 3 DAYS Resulted 02/22/18 20:50 Blood Peripheral Aerobic Blood Culture - Preliminary Gram Positive Cocci Resulted 02/22/18 20:50 Blood Peripheral Anaerobic Blood Culture - Preliminary NO GROWTH IN 3 DAYS Resulted Imaging Last Impressions Chest X-Ray 02/25/18 06 Signed Impressions: CONCLUSION: Patchy opacity left lung base indicating atelectasis versus mild consolidation. Abdomen X-Ray 02/25/18 06 Signed Impressions: CONCLUSION: Nasogastric tube in place. Gas-filled distention of the stomach no longer seen. Nonspecific bowel gas pattern. Abdomen/Pelvis CT 02/22/18 Signed Impressions: CONCLUSION: 1. Small bilateral pleural effusions with dependent atelectasis and consolidat ion in both lungs. 2. Mild ileus. Liver Ultrasound 02/17/18 Signed Impressions: CONCLUSION: 1. Hepatomegaly with coarsened liver echotexture. No focal liver lesion is heath ntified. 2. Mild splenomegaly. Catheter Placement X-Ray 02/17/18 Signed Impressions: CONCLUSION: 1. Uncomplicated line placement as above. Foot MRI 02/14/18 Signed Impressions: CONCLUSION: 1. Diffuse subcutaneous edema of the foot with mild enhancement along the dors al aspect of the foot. This could represent cellulitis. No abscess is identifie d and there are no findings to indicate osteomyelitis. 2. There is some degree of osseous fusion at the tibiotalar joint and there is severe degenerative change at the subtalar joint and talonavicular joint. 3. Old healed fracture of the fifth metatarsal. Foot X-Ray 02/13/18 Signed Impressions: CONCLUSION: 1. There is a transverse fracture through the mid fifth metatarsal. Adjacent p eriosteal reaction is present suggesting that it is subacute or chronic. 2. There has been prior arthrodesis of the subtalar joint and tibiotalar joint s with osseous fusion. Hypertrophic osteophytes are present at the talonavicula r joint. Head CT 02/12/18 Signed Impressions: CONCLUSION: Chronic small vessel ischemic and atrophic changes. Cervical Spine CT 02/12/18 Signed Impressions: CONCLUSION: Unremarkable study except for slight degenerative spondylosis. CT Angiography 02/12/18 Signed Impressions: CONCLUSION: 1. Possible nodules within the thyroid gland mainly on the right side. 2. Slight fatty liver. 3. No definite pulmonary embolus. Physical Exam CONSTITUTIONAL/GENERAL: This is a morbidly obese patient, intubated TUBES/LINES/DRAINS: SKIN: No jaundice, rashes, or lesions. Skin temperature appropriate. HEAD: Atraumatic. Normocephalic. EYES: Pupils equal and round and reactive. No scleral icterus. No injection or drainage. Fundi not examined. ENT: Intubated. NECK: Trachea midline. Supple, nontender. No palpable thyroid enlargement or nodularity. CARDIOVASCULAR: RRR. No murmurs, rubs or gallops RESPIRATORY/CHEST: Symmetric, unlabored respirations. Clear to auscultation. Breath sounds equal bilaterally. No wheezes, rales, or rhonchi. GASTROINTESTINAL: Abdomen less tight very distended and tympanic mainly in LUQ area GENITOURINARY: Without palpable bladder distension. Charlton catheter in place with small amount of urine MUSCULOSKELETAL: Extremities without clubbing, cyanosis, Marked generalysed edema. Bilateral LE erythema with induration noted. NEUROLOGICAL: sedated. On vent PSYCHIATRIC:unable to assess Assessment & Plan Remarks Severe Sepsis present on admission Mitral valve endocarditis, MSSA MSSA high grade bacteremia. Bilateral LE cellulitis. Ho Rt foot hardware infection MRI w/o e/o osteomyelitis in either feet acute metabolic encephalopathy:sepsis, metabolic. acute resp failure on vent. acute renal failure oliguric: sepsis, meds oxacillin, vanco etc. May end up needing HD. CAD s/p CABG ARF with oliguria and fluid overload : no e/o interstitial nephritis - nephrology following, On HD Persistent fever. Source not apparent for now Ileus - worsening leukocytosis: improved New positive blood clx Recs: cont Ancef IV q8hrs equivalent. cont dapto for now [facility] Lois Otero MD Feb 25, 2018 16:53
--- NOTE | 2018-02-25 18:41 | HHI.CCPN ---
Subjective Remarks/Hospital Course Hospital Course: This is a 62yM with history of prior stroke, DM, CAD who presents after his brother found him after he fell. He states he was on the floor for > 18 hours. He endorses a week of fatigue, fever, chills. denies any other symptoms. denies chest pain, shortness of breath, nausea, vomiting, constipation, diarrhea. does endorse generalized abdominal pain which is mild. in the ER he was tachycardic and very diaphoretic. he has laboratory evidence of CK 7000, wbc 17k, Cr 1.3, trop 0.8. CT chest/abd/pelvis unremarkable. CT head and c-spine negative for trauma. febrile to 103 in the ER. given 2L NS ivf with improvement in his HR. remainder of ROS negative. 02/13: somewhat improved, feeling slightly better. remains febrile. cultures still pending. repeat lactate pending. HR improving. 02/14: Patient had episodes of temperatures of 103 with diaphoresis tachypnea yesterday. Blood cultures growing staph aureus 4 out of 4. Evaluated by ANGI Otero yesterday. Respiratory status declined overnight and patient was intubated and placed on mechanical ventilation. Currently remains sedated, orally intubated on mechanical ventilation. 02/15: Remains sedated, orally intubated on mechanical ventilation. Cardiology consulted by Dr. Otero to evaluate for STEF for persistent MSSA bacteremia. 02/16: remains very critically ill. persistent + blood cultures for MSSA. STEF still pending. Cr doubled overnight again despite +10L in last 48h. no improvement at all, and all organ systems are worse. no implantable devices. central lines were placed on admission. 02/17 Patient remains sedated with Diprivan and Fentanyl drip. Afebrile. 02/18 Patient was started on HD yesterday remains sedated and intubated. 02/19 Patient s/p HD yesterday with removal 3L. Spiked fever with T:101.3 at 4am. Sedated and intubated 02/20 No events overnight Patient tolerated CPAP for most of day yesterday. Off Diprivan and Fentanyl drips and now on Precedex drip. s/p HD yesterday with removal 3L. T:102.1 at 8 am. 02/21 Patient remains intubated on Precedex drip to facilitate with weaning trials. s/p HD yesterday with removal 3.5L. Had hematuria overnight night placed on CBI now hematuria is clearing. SUBJECTIVE: 02/22: Afebrile. NG tube placed to low wall suction secondary to increasing abdominal distention. Last KUB 02/20 revealed gaseous distention. Will check stat CT abdomen/pelvis with oral contrast 02/23: Late entry note. Patient seen at noon. NG tube output overnight approximately 100 cc. Currently the patient remains n.p.o.. GI has been consulted. Will initiate Reglan 5 mg every 8 hour. Patient tolerated CPAP trials for approximately 8 hours today. 02/24: T-max 99.5. Patient continues to have hypoactive bowel sounds Reglan every 8 hours was initiated last evening C. difficile is pending. The patient was noted to have 700 cc of residual fluid this a.m. per G-tube despite low intermittent wall suction. GI has been consulted. 02/25: Late entry note. Patient seen at 10 AM. afebrile. Patient remained on CPAP trials throughout the day. The patient is awake and alert nodding head to question denies pain KUB shows improvement. Objective Vital Signs Date Time Temp Pulse Resp B/P (MAP) Pulse Ox O2 Delivery O2 Flow Rate FiO2 02/25/18 16:00 98.7 74 28 153/71 (98) 98 02/25/18 16:00 30 02/25/18 07:00 Mechanical Ventilator Intake and Output 02/25/18 02/25/18 02/25/18 07:59 15:59 23:59 Intake Total 325 ml 134 ml Output Total 860 ml 810 ml Balance -535 ml -676 ml Result Diagram: 02/25/18 0316 02/25/18 0316 Imaging Last Impressions Chest X-Ray 02/25/18 06 Signed Impressions: CONCLUSION: Patchy opacity left lung base indicating atelectasis versus mild consolidation. Abdomen X-Ray 02/25/18 06 Signed Impressions: CONCLUSION: Nasogastric tube in place. Gas-filled distention of the stomach no longer seen. Nonspecific bowel gas pattern. Abdomen/Pelvis CT 02/22/18 0000 Signed Impressions: CONCLUSION: 1. Small bilateral pleural effusions with dependent atelectasis and consolidat ion in both lungs. 2. Mild ileus. Liver Ultrasound 6/4/18 0000 Signed Impressions: CONCLUSION: 1. Hepatomegaly with coarsened liver echotexture. No focal liver lesion is heath ntified. 2. Mild splenomegaly. Catheter Placement X-Ray 02/17/18 Signed Impressions: CONCLUSION: 1. Uncomplicated line placement as above. Foot MRI 02/14/18 Signed Impressions: CONCLUSION: 1. Diffuse subcutaneous edema of the foot with mild enhancement along the dors al aspect of the foot. This could represent cellulitis. No abscess is identifie d and there are no findings to indicate osteomyelitis. 2. There is some degree of osseous fusion at the tibiotalar joint and there is severe degenerative change at the subtalar joint and talonavicular joint. 3. Old healed fracture of the fifth metatarsal. Foot X-Ray 02/13/18 Signed Impressions: CONCLUSION: 1. There is a transverse fracture through the mid fifth metatarsal. Adjacent p eriosteal reaction is present suggesting that it is subacute or chronic. 2. There has been prior arthrodesis of the subtalar joint and tibiotalar joint s with osseous fusion. Hypertrophic osteophytes are present at the talonavicula r joint. Head CT 02/12/18 Signed Impressions: CONCLUSION: Chronic small vessel ischemic and atrophic changes. Cervical Spine CT 02/12/18 Signed Impressions: CONCLUSION: Unremarkable study except for slight degenerative spondylosis. CT Angiography 02/12/18 Signed Impressions: CONCLUSION: 1. Possible nodules within the thyroid gland mainly on the right side. 2. Slight fatty liver. 3. No definite pulmonary embolus. Last Impressions Chest X-Ray 02/23/18 0600 Signed Impressions: CONCLUSION: Lungs remain grossly clear. Abdomen/Pelvis CT 02/22/18 Signed Impressions: CONCLUSION: 1. Small bilateral pleural effusions with dependent atelectasis and consolidat ion in both lungs. 2. Mild ileus. Abdomen X-Ray 02/22/18 Signed Impressions: CONCLUSION: Distended stomach with NG in distal stomach. No free air. Liver Ultrasound 02/17/18 Signed Impressions: CONCLUSION: 1. Hepatomegaly with coarsened liver echotexture. No focal liver lesion is heath ntified. 2. Mild splenomegaly. Catheter Placement X-Ray 02/17/18 Signed Impressions: CONCLUSION: 1. Uncomplicated line placement as above. Foot MRI 02/14/18 Signed Impressions: CONCLUSION: 1. Diffuse subcutaneous edema of the foot with mild enhancement along the dors al aspect of the foot. This could represent cellulitis. No abscess is identifie d and there are no findings to indicate osteomyelitis. 2. There is some degree of osseous fusion at the tibiotalar joint and there is severe degenerative change at the subtalar joint and talonavicular joint. 3. Old healed fracture of the fifth metatarsal. Foot X-Ray 02/13/18 Signed Impressions: CONCLUSION: 1. There is a transverse fracture through the mid fifth metatarsal. Adjacent p eriosteal reaction is present suggesting that it is subacute or chronic. 2. There has been prior arthrodesis of the subtalar joint and tibiotalar joint s with osseous fusion. Hypertrophic osteophytes are present at the talonavicula r joint. Head CT 02/12/18 Signed Impressions: CONCLUSION: Chronic small vessel ischemic and atrophic changes. Cervical Spine CT 02/12/18 Signed Impressions: CONCLUSION: Unremarkable study except for slight degenerative spondylosis. CT Angiography 02/12/18 Signed Impressions: CONCLUSION: 1. Possible nodules within the thyroid gland mainly on the right side. 2. Slight fatty liver. 3. No definite pulmonary embolus. Last Impressions Chest X-Ray 02/22/18 Signed Impressions: CONCLUSION: Mild basilar opacity is slightly improved since February 19. Endotracheal tube, naso gastric tube and right central line unchanged. Abdomen X-Ray 02/20/18 Signed Impressions: CONCLUSION: Marked gaseous distention of the stomach. Nasogastric tube is present but presu mably not connected to suction. Otherwise, no acute finding is identified. Liver Ultrasound 02/17/18 Signed Impressions: CONCLUSION: 1. Hepatomegaly with coarsened liver echotexture. No focal liver lesion is heath ntified. 2. Mild splenomegaly. Catheter Placement X-Ray 02/17/18 Signed Impressions: CONCLUSION: 1. Uncomplicated line placement as above. Foot MRI 02/14/18 Signed Impressions: CONCLUSION: 1. Diffuse subcutaneous edema of the foot with mild enhancement along the dors al aspect of the foot. This could represent cellulitis. No abscess is identifie d and there are no findings to indicate osteomyelitis. 2. There is some degree of osseous fusion at the tibiotalar joint and there is severe degenerative change at the subtalar joint and talonavicular joint. 3. Old healed fracture of the fifth metatarsal. Foot X-Ray 02/13/18 Signed Impressions: CONCLUSION: 1. There is a transverse fracture through the mid fifth metatarsal. Adjacent p eriosteal reaction is present suggesting that it is subacute or chronic. 2. There has been prior arthrodesis of the subtalar joint and tibiotalar joint s with osseous fusion. Hypertrophic osteophytes are present at the talonavicula r joint. Head CT 02/12/18 Signed Impressions: CONCLUSION: Chronic small vessel ischemic and atrophic changes. Cervical Spine CT 02/12/18 Signed Impressions: CONCLUSION: Unremarkable study except for slight degenerative spondylosis. CT Angiography 02/12/18 Signed Impressions: CONCLUSION: 1. Possible nodules within the thyroid gland mainly on the right side. 2. Slight fatty liver. 3. No definite pulmonary embolus. Abdomen/Pelvis CT 02/12/18 Signed Impressions: CONCLUSION: 1. Slight fatty liver. 2. Probable left adrenal adenoma. Objective Remarks GENERAL: Patient is 62 yo male currently resting in bed on dexmedetomidine for sedation, intubated SKIN: Warm and dry. No rash HEAD: Normocephalic. EYES: Pupils are about 3 members bilaterally and reactive no scleral icterus. No injection or drainage. NECK: Supple, trachea midline. No JVD or lymphadenopathy. CARDIOVASCULAR: Bradycardic, RR. S1, S2 no S4. Without murmurs, clicks, gallops or rubs RESPIRATORY: Minutes breath sounds the bases. No wheezing. GASTROINTESTINAL: Abdomen soft, non-tender, protuberant nondistended. Hypoactive bowel sounds. MUSCULOSKELETAL: Trace bilateral lower extremities. Open ears to the anterior shins bilaterally with erythema currently covered in Kerlix NEURO: RASS -1. Intubated. Follows commands on sedation vacation. Moves all 4 extremities spontaneously. A/P Assessment and Plan Neuro/Psych: On dexmedetomidine drip at 1.2 mcg/kg/min for sedation while intubated Goal of RASS -2 Daily sedation vacation Monitor neuro status. CT brain 02/12: Chronic small vessel ischemic changes Acetaminophen 650 mg every 4 hours as needed fever Pulm: Acute respiratory failure Continue with vent support keep sats >92% Bronchodilators, ICU vent bundle. PRVC ventilation SBT daily as sahara tolerated CPAP trials>16 hours Continue CPAP trials CV: Type II NSTEMI, Elevated troponin, likely secondary to demand ischemia Rate 1 diastolic dysfunction/chronic Essential hypertension Hyperlipidemia - CT pulmonary angiogram negative for PE. Continue Lopressor 25mg Q12, Hydralazine 75mg Q8 hr. Monitor HR and BP keep MAP>65mmHg Lactic acid 2.8 on 02/13 STEF 02/16: EF 55-60%, grade I diastolic dysfunction. Small mobile echodensity is noted on the subvalvular apparatus of the posterior mitral valve leaflet. ?small vegetation, sclerosis, or partial chordae tendineae rupture. Cards signed off Currently on metoprolol tartrate 25 twice daily and and hydralazine 75 mg 3 times daily. And isosorbide mononitrate 100 mg daily home Holding simvastatin 20 mg daily for dyslipidemia resumed clinically indicated Renal/: Acute kidney injury secondary to contrast? Sepsis secondary to staph bacteremia ? Rhabdo -resolving BPH Monitor renal function, I/O's, avoid nephrotoxins HD initiated 02/17 Hemodialysis 02/22 -3.[address] Brewer On furosemide 80mg IV daily Holding tamsulosin 0.4 mg daily. Continue to monitor creatinine kinase while on daptomycin GI: Elevated LFT's ( trending down) Ileus Tube feeds- Nepro with goal rate 45ml/hr currently on hold (02/22) secondary to abdominal distention. Stat CT abdomen/pelvis-ileus On Protonix 40mg daily for GI prophylaxis Monitor LFT's, CT abd/pelvis 02/12: Slight fatty liver Repeat CT abdomen/pelvis 02/22 pending Hep B,C non reactive US liver: Hepatomegaly with coarsened liver echotexture. No focal liver lesion is identified. Mild splenomegaly 02/23: Begin Reglan 5 mg every 8 hours 02/23: GI following 02/25: KUB improvement no gaseous distention ID Staph bacteremia - source LE cellulitis? - MRI bilateral feet: negative for osteo. Positive cellulitis - podiatry consult appreciated -ID consult Dr. Otero -Continue abx per ID (cefazolin, aztreonam micafungin, Dapto) monitor for signs of infections ( Fever, WBC) Pancultured 02/19 ( Blood, sputum, Urine) 02/19 BC: Staph aureus 02/17 BC from: NGTD 02/12: 12/18 bottles MSSA 02/13: 10/20 bottles MSSA 02/15: 09/19 bottles MSSA - sputum culture: NGTD Heme: Normocytic anemia Thrombocytopenia Monitor CBC. Follow trend Endo: Hyperglycemia Diabetes Mellitus, type 2 - increase SSI high scale, q4h, increase insulin detemir 20u Q12hr Currently on glipizide 5 mg twice daily been sitagliptin 50 mg daily Prophylaxis SCDs SQH resumed 02/24 Pantoprazole Lines: Right IJ vascath placed 02/17 by IR Level 3 follow up Physician Evita Blake MD Feb 25, 2018 18:41
[2018-02-25] MEDS: DAPTOmycin INJ 800 MG in SODIUM CHLORIDE 0.9% INJ 100 ML IV SCH (21:52)
[2018-02-26] VITALS (19 sets, daily range): BP systolic 145–168; BP diastolic 68–77; PULSE 63–109; RESP 22–28; TEMP 98.3–99.3; O2SAT 97–100
[2018-02-26] MEDS: CHLORHEXIDINE GLUCONATE 2 % 1 PACK (2 CLOTHS) TOP SCH (01:15)
[2018-02-26] MEDS: hydrALAZINE HCL 25 MG TAB PO SCH ×3 (01:23→18:00)
[2018-02-26] MEDS: ceFAZolin 2 GM/DEX PREMIX 50 ML IV SCH ×2 (01:23→13:58)
[2018-02-26] MEDS: INSULIN NovoLIN REGULAR SUPPLEMENTAL SCALE SQ SCH ×6 (02:00→22:00)
[2018-02-26] MEDS: DEXMEDETOMIDINE INJ 1,000 MCG in SODIUM CHLOR 0.9% 250 ML INJ 240 ML IV PRN ×2 (03:38→09:43)
--- NOTE | 2018-02-26 04:40 | RADRPT ---
EXAM DATE: 02/26/2018 4:35 AM EDT AGE/SEX: 62 years / Male INDICATIONS: Short of breath. CLINICAL DATA: This is the patient's subsequent encounter. Patient reports that signs and symptoms h ave been present for 1 week and indicates a pain score of 0/10. MEDICAL/SURGICAL HISTORY: Carcinoma, colon. Gastroesophageal reflux disease. Congestive heart f ailure. Hypertension. Ulcer. Arthritis. Diabetic. Colon resection. Cholecystectomy. COMPARISON: [facility] [place], CHEST SINGLE AP, 02/25/2018. . FINDINGS: Single AP view the chest. Endotracheal tube, nasogastric tube, right subclavian central venous cathet er remain in place. Mild patchy opacity at the left lung base unchanged. Cardiomediastinal silhouette unchanged. No evidence of pneumothorax. CONCLUSION: No significant interval change with persistent mild patchy left lung base opacity. Electronically signed by: Ken Singleton MD 02/26/2018 4:39 AM EDT
[2018-02-26] MEDS: METOCLOPRAMIDE HCL 10 MG/2 ML VIAL IV SCH ×3 (05:29→21:32)
[2018-02-26 05:33] LABS: AUTOMATED NEUTROPHIL # 8.9 TH/MM3 (1.8-7.7); BASOPHIL # 0.1 TH/MM3 (0-0.2); BASOPHIL % 0.5 % (0.0-2.0); EOSINOPHIL # 0.4 TH/MM3 (0-0.4); EOSINOPHIL % 3.1 % (0.0-4.0); HEMATOCRIT 33.6 % (39.0-51.0); HEMOGLOBIN 10.9 GM/DL (13.0-17.0); LYMPH % 14.9 % (9.0-44.0); LYMPHOCYTE # 1.8 TH/MM3 (1.0-4.8); MEAN CELL VOLUME 83.2 FL (80.0-100.0); MEAN CORPUSCULAR HEMOGLOBIN 27.1 PG (27.0-34.0); MEAN CORPUSCULAR HGB CONC 32.5 % (32.0-36.0); MEAN PLATELET VOLUME 9.4 FL (7.0-11.0); MONOCYTE # 1.1 TH/MM3 (0-0.9); NEUT % 72.5 % (16.0-70.0); PLATELET COUNT 303 TH/MM3 (150-450); RED BLOOD COUNT 4.04 MIL/MM3 (4.50-5.90); RED CELL DISTRIBUTION WIDTH 16.3 % (11.6-17.2); WHITE BLOOD COUNT 12.3 TH/MM3 (4.0-11.0)
[2018-02-26 05:45] LABS: CREATININE 7.64 MG/DL (0.60-1.30)
[2018-02-26 06:06] LABS: PHOSPHORUS 9.8 MG/DL (2.5-4.9)
[2018-02-26] MEDS: CHLORHEXIDINE 0.12% (ORAL KIT) 15 ML CUP MT SCH ×2 (08:00→20:00)
[2018-02-26] MEDS: ARTIFICIAL TEARS OPTH OINT 3.5 APPLIC/3.5 GM TUBO EACH EYE SCH ×2 (08:43→21:00)
[2018-02-26] MEDS: SENNOSIDES SYRUP 8.8 MG/5 ML CUP PO SCH (08:44)
[2018-02-26] MEDS: DOCUSATE SODIUM 100 MG/10 ML UDC PO SCH ×2 (08:44→20:24)
[2018-02-26] MEDS: FUROSEMIDE 20 MG/2 ML VIAL IV PUSH SCH ×2 (08:44→21:33)
[2018-02-26] MEDS: PANTOPRAZOLE SODIUM 40 MG VIAL IV PUSH SCH (08:44)
[2018-02-26] MEDS: METOPROLOL TARTRATE 25 MG TAB PO SCH ×2 (08:44→20:24)
[2018-02-26] MEDS: INSULIN DETEMIR 100 UNITS/ML VIAL SQ SCH ×2 (08:45→21:00)
[2018-02-26] MEDS: HEPARIN SODIUM - SQ 10,000 UNITS/ML VIAL SQ SCH ×2 (08:45→21:33)
--- NOTE | 2018-02-26 10:41 | HHI.GIFU ---
Subjective Remarks TF turned off for possible extubation today after CPAP trial last night Per RN no high residuals, pt was tolerating trickle feeds (Nevaeh Jules) Objective Vitals I&O Vital Signs Date Time Temp Pulse Resp B/P (MAP) Pulse Ox O2 Delivery O2 Flow Rate FiO2 02/26/18 08:17 98.7 63 25 155/73 (100) 99 02/26/18 07:46 100 30 02/26/18 06:00 66 02/26/18 05:43 98 30 02/26/18 04:00 68 02/26/18 04:00 99.3 68 22 145/68 (93) 97 02/26/18 04:00 30 02/26/18 03:03 97 30 02/26/18 02:00 67 02/26/18 00:00 30 02/26/18 00:00 70 02/26/18 00:00 99.0 70 28 150/69 (96) 97 02/25/18 23:18 96 30 02/25/18 22:00 69 02/25/18 20:00 71 02/25/18 20:00 30 02/25/18 20:00 99.3 71 29 157/73 (101) 99 02/25/18 19:51 98 30 02/25/18 19:00 98 Mechanical Ventilator 30 02/25/18 18:00 70 02/25/18 16:00 98.7 74 28 153/71 (98) 98 02/25/18 16:00 30 02/25/18 16:00 74 02/25/18 15:43 98 30 02/25/18 14:00 76 02/25/18 12:00 30 02/25/18 12:00 98.8 75 23 155/72 (99) 98 02/25/18 12:00 75 02/25/18 11:36 98 30 I/O 02/25/18 02/25/18 02/25/18 02/26/18 02/26/18 02/26/18 07:00 15:00 23:00 07:00 15:00 23:00 Intake Total 325 ml 234 ml Output Total 860 ml 810 ml 1030 ml Balance -535 ml -576 ml -1030 ml IV Total 325 ml 100 ml Tube Feeding 0 ml 74 ml Other 60 ml Output Urine Total 600 ml 800 ml 1000 ml Stool Total 60 ml 10 ml 30 ml Gastric Drainage Total 200 ml 0 ml Laboratory Laboratory Tests Test 02/26/18 03:07 02/26/18 04:54 White Blood Count 12.3 Red Blood Count 4.04 Hemoglobin 10.9 Hematocrit 33.6 Mean Corpuscular Volume 83.2 Mean Corpuscular Hemoglobin 27.1 Mean Corpuscular Hemoglobin Concent 32.5 Red Cell Distribution Width 16.3 Platelet Count 303 Mean Platelet Volume 9.4 Neutrophils (%) (Auto) 72.5 Lymphocytes (%) (Auto) 14.9 Monocytes (%) (Auto) 9.0 Eosinophils (%) (Auto) 3.1 Basophils (%) (Auto) 0.5 Neutrophils # (Auto) 8.9 Lymphocytes # (Auto) 1.8 Monocytes # (Auto) 1.1 Eosinophils # (Auto) 0.4 Basophils # (Auto) 0.1 CBC Comment DIFF FINAL Differential Comment Blood Urea Nitrogen 117 Creatinine 7.64 Random Glucose 200 Calcium Level 8.0 Phosphorus Level 9.8 Magnesium Level 3.0 Sodium Level 141 Potassium Level 3.8 Chloride Level 98 Carbon Dioxide Level 26.0 Anion Gap 17 Estimat Glomerular Filtration Rate 7 Total Creatine Kinase 279 Blood Gas Puncture Site LT RADIAL Blood Gas Patient Temperature 98.6 Blood Gas HCO3 26 Blood Gas Base Excess 1.8 Blood Gas Oxygen Saturation 95 Arterial Blood pH 7.42 Arterial Blood Partial Pressure CO2 41 Arterial Blood Partial Pressure O2 103 Arterial Blood Oxygen Content 16.0 Arterial Blood Carboxyhemoglobin 0.7 Arterial Blood Methemoglobin 1.6 Blood Gas Hemoglobin 11.9 Oxygen Delivery Device VENTILATOR Blood Gas Ventilator Setting CPAP/PS12/PEEP5 Blood Gas Inspired Oxygen 30 Date/Time Source Procedure Growth Status 02/22/18 20:58 Blood Peripheral Aerobic Blood Culture - Preliminary NO GROWTH IN 3 DAYS Resulted 02/22/18 20:58 Blood Peripheral Anaerobic Blood Culture - Preliminary NO GROWTH IN 3 DAYS Resulted 02/19/18 08:29 Sputum Endotracheal Gram Stain - Final Complete 02/19/18 08:29 Sputum Endotracheal Sputum Culture - Final RARE GROWTH NORMAL RESPIRATORY DREW Complete 02/19/18 08:30 Urine Catheterized Urine Urine Culture - Final NO GROWTH IN 48 HOURS. Complete Imaging Last Impressions Chest X-Ray 02/26/18 0600 Signed Impressions: CONCLUSION: No significant interval change with persistent mild patchy left lung base opaci ty. Abdomen X-Ray 02/25/18 0600 Signed Impressions: CONCLUSION: Nasogastric tube in place. Gas-filled distention of the stomach no longer seen. Nonspecific bowel gas pattern. Abdomen/Pelvis CT 02/22/18 Signed Impressions: CONCLUSION: 1. Small bilateral pleural effusions with dependent atelectasis and consolidat ion in both lungs. 2. Mild ileus. Liver Ultrasound 02/17/18 Signed Impressions: CONCLUSION: 1. Hepatomegaly with coarsened liver echotexture. No focal liver lesion is heath ntified. 2. Mild splenomegaly. Catheter Placement X-Ray 02/17/18 Signed Impressions: CONCLUSION: 1. Uncomplicated line placement as above. Foot MRI 02/14/18 Signed Impressions: CONCLUSION: 1. Diffuse subcutaneous edema of the foot with mild enhancement along the dors al aspect of the foot. This could represent cellulitis. No abscess is identifie d and there are no findings to indicate osteomyelitis. 2. There is some degree of osseous fusion at the tibiotalar joint and there is severe degenerative change at the subtalar joint and talonavicular joint. 3. Old healed fracture of the fifth metatarsal. Foot X-Ray 02/13/18 Signed Impressions: CONCLUSION: 1. There is a transverse fracture through the mid fifth metatarsal. Adjacent p eriosteal reaction is present suggesting that it is subacute or chronic. 2. There has been prior arthrodesis of the subtalar joint and tibiotalar joint s with osseous fusion. Hypertrophic osteophytes are present at the talonavicula r joint. Head CT 02/12/18 Signed Impressions: CONCLUSION: Chronic small vessel ischemic and atrophic changes. Cervical Spine CT 02/12/18 Signed Impressions: CONCLUSION: Unremarkable study except for slight degenerative spondylosis. CT Angiography 02/12/18 Signed Impressions: CONCLUSION: 1. Possible nodules within the thyroid gland mainly on the right side. 2. Slight fatty liver. 3. No definite pulmonary embolus. Physical Exam HEENT: Normocephalic; atraumatic CHEST: Synchronized with vent via ETT CARDIAC: RRR ABDOMEN: Obese, soft, nontender, bowel sounds active SKIN: Normal; no rash; no jaundice. DRUM PULLER: Awake (Nevaeh Jules VASCULAR SURGEON) Assessment and Plan Plan Assessment: - Ileus KUB (02/22) Distended stomach with NG in distal stomach. No free air. CT abdomen and pelvis W/O IV contrast (02/22) Mild ileus. Per RN pt had 700 mL of TF residual this morning, so currently TF on hold. OG clamped. Reglan added by attending last night. Our service has seen pt in October of this year, did an EGD which revealed three ulcers in the antrum and hiatal hernia. - S/P fall, found on floor for over 18 hours, rhabdomyolysis, CK over 7000 on admission - Sepsis- bacteremia- infectious disease following - WILMER, placed on HD during admission (02/25) Per RN 200 mL of drainage from OG overnight. Abdomen is soft. Repeat KUB --> Nasogastric tube in place. Gas-filled distention of the stomach no longer seen. Nonspecific bowel gas pattern. (02/26) Pt tolerating trickle feeds yesterday at 10 mL/hr. Per RN no high residuals. TF currently turned off for possible extubation today. If pt remains intubated increase TF to goal rate as tolerated, if extubated then transfer to PO when able. Plan: If pt remains intubated increase Nepro to goal rate of 45 mL/hr Check residuals as per protocol Continue Reglan GI will sign off, please reconsult as needed Pt has been seen and examined by myself and Dr. Matute and this note is written on his behalf (Nevaeh Jules) Physician Comments Ileus resolved clinically and by KUB. TF resumed. okay to hold Relistor. Please reconsult if needed again. (Yuliet Matute MD) Nevaeh Jules Feb 26, 2018 10:41 Yuliet Matute MD Feb 26, 2018 11:28
--- NOTE | 2018-02-26 17:06 | HHI.IDPN ---
Subjective Subjective Remarks no fever remains on vent remains on Hemodialysis. Last blood cultures with coag neg staph again Nl resp maite in sputum clx Antibiotics dapto cefazoline Lines PIVs look ok Past Medical History Past Medical History Diabetes Hyperlipidemia Chronic pain syndrome bilateral lower extremity ulcers BPH Hypertension Colon cancer s/p partial colectomy prior NSTEMI severe 2-vessel CAD managed medically old RBBB prior GI bleed anemia secondary to GI bleeding Arthritis CHF, unknown type GERD Past Surgical History partial colectomy skin grafts to right ankle left ankle surgery CABG Allergies: Coded Allergies: No Known Allergies (Unverified , 10/21/17) Objective . Vital Signs Date Time Temp Pulse Resp B/P (MAP) Pulse Ox O2 Delivery O2 Flow Rate FiO2 02/26/18 16:25 97 Nasal Cannula 4 02/26/18 16:25 97 Nasal Cannula 4.00 02/26/18 16:00 30 02/26/18 14:00 63 02/26/18 12:00 30 02/26/18 12:00 98.8 64 27 157/73 (101) 98 02/26/18 12:00 64 02/26/18 11:42 98 30 02/26/18 10:00 64 02/26/18 08:17 98.7 63 25 155/73 (100) 99 02/26/18 08:00 63 02/26/18 08:00 30 02/26/18 07:46 100 30 02/26/18 07:00 98 Mechanical Ventilator 30 02/26/18 06:00 66 02/26/18 05:43 98 30 02/26/18 04:00 68 02/26/18 04:00 99.3 68 22 145/68 (93) 97 02/26/18 04:00 30 02/26/18 03:03 97 30 02/26/18 02:00 67 02/26/18 00:00 30 02/26/18 00:00 70 02/26/18 00:00 99.0 70 28 150/69 (96) 97 02/25/18 23:18 96 30 02/25/18 22:00 69 02/25/18 20:00 71 02/25/18 20:00 30 02/25/18 20:00 99.3 71 29 157/73 (101) 99 02/25/18 19:51 98 30 02/25/18 19:00 98 Mechanical Ventilator 30 02/25/18 18:00 70 . Laboratory Tests Test 02/25/18 03:16 02/26/18 03:07 White Blood Count 11.3 TH/MM3 12.3 TH/MM3 Red Blood Count 4.02 MIL/MM3 4.04 MIL/MM3 Hemoglobin 10.8 GM/DL 10.9 GM/DL Hematocrit 33.5 % 33.6 % Mean Corpuscular Volume 83.3 FL 83.2 FL Mean Corpuscular Hemoglobin 26.9 PG 27.1 PG Mean Corpuscular Hemoglobin Concent 32.2 % 32.5 % Red Cell Distribution Width 16.6 % 16.3 % Platelet Count 251 TH/MM3 303 TH/MM3 Mean Platelet Volume 9.5 FL 9.4 FL Neutrophils (%) (Auto) 72.9 % 72.5 % Lymphocytes (%) (Auto) 14.8 % 14.9 % Monocytes (%) (Auto) 7.6 % 9.0 % Eosinophils (%) (Auto) 4.1 % 3.1 % Basophils (%) (Auto) 0.6 % 0.5 % Neutrophils # (Auto) 8.3 TH/MM3 8.9 TH/MM3 Lymphocytes # (Auto) 1.7 TH/MM3 1.8 TH/MM3 Monocytes # (Auto) 0.9 TH/MM3 1.1 TH/MM3 Eosinophils # (Auto) 0.5 TH/MM3 0.4 TH/MM3 Basophils # (Auto) 0.1 TH/MM3 0.1 TH/MM3 CBC Comment DIFF FINAL DIFF FINAL Differential Comment Laboratory Tests Test 02/25/18 03:16 02/26/18 03:07 Blood Urea Nitrogen 93 MG/DL 117 MG/DL Creatinine 6.43 MG/DL 7.64 MG/DL Random Glucose 195 MG/DL 200 MG/DL Total Protein 7.5 GM/DL Albumin 3.0 GM/DL Calcium Level 8.1 MG/DL 8.0 MG/DL Phosphorus Level 8.7 MG/DL 9.8 MG/DL Magnesium Level 2.9 MG/DL 3.0 MG/DL Alkaline Phosphatase 98 U/L Aspartate Amino Transf (AST/SGOT) 30 U/L Alanine Aminotransferase (ALT/SGPT) 8 U/L Total Bilirubin 0.6 MG/DL Sodium Level 141 MEQ/L 141 MEQ/L Potassium Level 4.0 MEQ/L 3.8 MEQ/L Chloride Level 98 MEQ/L 98 MEQ/L Carbon Dioxide Level 23.7 MEQ/L 26.0 MEQ/L Anion Gap 19 MEQ/L 17 MEQ/L Estimat Glomerular Filtration Rate 9 ML/MIN 7 ML/MIN Total Creatine Kinase 370 U/L 279 U/L Creatine Kinase MB 3.2 NG/ML Creatine Kinase MB % 0.9 % Imaging Last Impressions Chest X-Ray 02/26/18599 Signed Impressions: CONCLUSION: No significant interval change with persistent mild patchy left lung base opaci ty. Abdomen X-Ray 02/25/18599 Signed Impressions: CONCLUSION: Nasogastric tube in place. Gas-filled distention of the stomach no longer seen. Nonspecific bowel gas pattern. Abdomen/Pelvis CT 02/22/18 Signed Impressions: CONCLUSION: 1. Small bilateral pleural effusions with dependent atelectasis and consolidat ion in both lungs. 2. Mild ileus. Liver Ultrasound 02/17/18 Signed Impressions: CONCLUSION: 1. Hepatomegaly with coarsened liver echotexture. No focal liver lesion is heath ntified. 2. Mild splenomegaly. Catheter Placement X-Ray 02/17/18 Signed Impressions: CONCLUSION: 1. Uncomplicated line placement as above. Foot MRI 02/14/18 Signed Impressions: CONCLUSION: 1. Diffuse subcutaneous edema of the foot with mild enhancement along the dors al aspect of the foot. This could represent cellulitis. No abscess is identifie d and there are no findings to indicate osteomyelitis. 2. There is some degree of osseous fusion at the tibiotalar joint and there is severe degenerative change at the subtalar joint and talonavicular joint. 3. Old healed fracture of the fifth metatarsal. Foot X-Ray 02/13/18 Signed Impressions: CONCLUSION: 1. There is a transverse fracture through the mid fifth metatarsal. Adjacent p eriosteal reaction is present suggesting that it is subacute or chronic. 2. There has been prior arthrodesis of the subtalar joint and tibiotalar joint s with osseous fusion. Hypertrophic osteophytes are present at the talonavicula r joint. Head CT 02/12/18 Signed Impressions: CONCLUSION: Chronic small vessel ischemic and atrophic changes. Cervical Spine CT 02/12/18 Signed Impressions: CONCLUSION: Unremarkable study except for slight degenerative spondylosis. CT Angiography 02/12/18 0000 Signed Impressions: CONCLUSION: 1. Possible nodules within the thyroid gland mainly on the right side. 2. Slight fatty liver. 3. No definite pulmonary embolus. Physical Exam CONSTITUTIONAL/GENERAL: This is a morbidly obese patient, intubated TUBES/LINES/DRAINS: SKIN: No jaundice, rashes, or lesions. Skin temperature appropriate. HEAD: Atraumatic. Normocephalic. EYES: Pupils equal and round and reactive. No scleral icterus. No injection or drainage. Fundi not examined. RESPIRATORY/CHEST: Symmetric, unlabored respirations. Clear to auscultation. Breath sounds equal bilaterally. No wheezes, rales, or rhonchi. GASTROINTESTINAL: Abdomen soft and less distended GENITOURINARY: Without palpable bladder distension. Charlton catheter in place with small amount of urine MUSCULOSKELETAL: Extremities without clubbing, cyanosis, Marked generalysed edema. Bilateral LE erythema with induration noted. NEUROLOGICAL: awake, alert communicating PSYCHIATRIC:calm cooperative Assessment & Plan Remarks Severe Sepsis present on admission Mitral valve endocarditis, MSSA MSSA high grade bacteremia. Bilateral LE cellulitis. Ho Rt foot hardware infection MRI w/o e/o osteomyelitis in either feet acute metabolic encephalopathy:sepsis, metabolic. acute resp failure on vent. acute renal failure oliguric: sepsis, meds oxacillin, vanco etc. May end up needing HD. CAD s/p CABG ARF with oliguria and fluid overload : no e/o interstitial nephritis - nephrology following, On HD Persistent fever. Source not apparent for now Ileus - worsening leukocytosis: improved New positive blood clx: cpoag neg staph Recs: cont Ancef IV q8hrs equivalent. cont dapto for now St epi fu CKs weekly while on dapto If same staph epi in the last clx, remove line Losi Otero MD Feb 26, 2018 17:06
--- NOTE | 2018-02-26 17:52 | HHI.CCPN ---
Subjective Remarks/Hospital Course Hospital Course: This is a 62yM with history of prior stroke, DM, CAD who presents after his brother found him after he fell. He states he was on the floor for > 18 hours. He endorses a week of fatigue, fever, chills. denies any other symptoms. denies chest pain, shortness of breath, nausea, vomiting, constipation, diarrhea. does endorse generalized abdominal pain which is mild. in the ER he was tachycardic and very diaphoretic. he has laboratory evidence of CK 7000, wbc 17k, Cr 1.3, trop 0.8. CT chest/abd/pelvis unremarkable. CT head and c-spine negative for trauma. febrile to 103 in the ER. given 2L NS ivf with improvement in his HR. remainder of ROS negative. 02/13: somewhat improved, feeling slightly better. remains febrile. cultures still pending. repeat lactate pending. HR improving. 02/14: Patient had episodes of temperatures of 103 with diaphoresis tachypnea yesterday. Blood cultures growing staph aureus 4 out of 4. Evaluated by ANGI Otero yesterday. Respiratory status declined overnight and patient was intubated and placed on mechanical ventilation. Currently remains sedated, orally intubated on mechanical ventilation. 02/15: Remains sedated, orally intubated on mechanical ventilation. Cardiology consulted by Dr. Otero to evaluate for STEF for persistent MSSA bacteremia. 02/16: remains very critically ill. persistent + blood cultures for MSSA. STEF still pending. Cr doubled overnight again despite +10L in last 48h. no improvement at all, and all organ systems are worse. no implantable devices. central lines were placed on admission. 02/17 Patient remains sedated with Diprivan and Fentanyl drip. Afebrile. 02/18 Patient was started on HD yesterday remains sedated and intubated. 02/19 Patient s/p HD yesterday with removal 3L. Spiked fever with T:101.3 at 4am. Sedated and intubated 02/20 No events overnight Patient tolerated CPAP for most of day yesterday. Off Diprivan and Fentanyl drips and now on Precedex drip. s/p HD yesterday with removal 3L. T:102.1 at 8 am. 02/21 Patient remains intubated on Precedex drip to facilitate with weaning trials. s/p HD yesterday with removal 3.5L. Had hematuria overnight night placed on CBI now hematuria is clearing. SUBJECTIVE: 02/22: Afebrile. NG tube placed to low wall suction secondary to increasing abdominal distention. Last KUB 02/20 revealed gaseous distention. Will check stat CT abdomen/pelvis with oral contrast 02/23: Late entry note. Patient seen at noon. NG tube output overnight approximately 100 cc. Currently the patient remains n.p.o.. GI has been consulted. Will initiate Reglan 5 mg every 8 hour. Patient tolerated CPAP trials for approximately 8 hours today. 02/24: T-max 99.5. Patient continues to have hypoactive bowel sounds Reglan every 8 hours was initiated last evening C. difficile is pending. The patient was noted to have 700 cc of residual fluid this a.m. per G-tube despite low intermittent wall suction. GI has been consulted. 02/25: Late entry note. Patient seen at 10 AM. afebrile. Patient remained on CPAP trials throughout the day. The patient is awake and alert nodding head to question denies pain KUB shows improvement. 02/26: Late entry note. The patient was seen at 1300. The patient was maintained on CPAP trials throughout the night SBT was performed early this a.m. the patient initially was lethargic Precedex was discontinued SBT trial was again reinitiated around 12 noon patient successfully passed and was extubated. Objective Vital Signs Date Time Temp Pulse Resp B/P (MAP) Pulse Ox O2 Delivery O2 Flow Rate FiO2 02/26/18 16:25 97 Nasal Cannula 4 02/26/18 16:00 99.3 69 23 165/76 (105) 02/26/18 16:00 30 Intake and Output 02/26/18 02/26/18 02/27/18 08:00 16:00 00:00 Output Total 1030 ml Balance -1030 ml Result Diagram: 02/26/18 03002/26/18 030 Other Results Laboratory Tests Test 02/26/18 04:54 Blood Gas Puncture Site LT RADIAL Blood Gas Patient Temperature 98.6 Blood Gas HCO3 26 mmol/L (22-26) Blood Gas Base Excess 1.8 mmol/L (-2-2) Blood Gas Oxygen Saturation 95 % (90-100) Arterial Blood pH 7.42 (7.380-7.420) Arterial Blood Partial Pressure CO2 41 mmHg (38-42) Arterial Blood Partial Pressure O2 103 mmHg (61-120) Arterial Blood Oxygen Content 16.0 Vol % (12.0-20.0) Arterial Blood Carboxyhemoglobin 0.7 % (0-4) Arterial Blood Methemoglobin 1.6 % (0-2) Blood Gas Hemoglobin 11.9 G/DL (12.0-16.0) Oxygen Delivery Device VENTILATOR Blood Gas Ventilator Setting CPAP/PS12/PEEP5 Blood Gas Inspired Oxygen 30 % Imaging Last Impressions Chest X-Ray 02/26/18599 Signed Impressions: CONCLUSION: No significant interval change with persistent mild patchy left lung base opaci ty. Abdomen X-Ray 02/25/18599 Signed Impressions: CONCLUSION: Nasogastric tube in place. Gas-filled distention of the stomach no longer seen. Nonspecific bowel gas pattern. Abdomen/Pelvis CT 02/22/18 Signed Impressions: CONCLUSION: 1. Small bilateral pleural effusions with dependent atelectasis and consolidat ion in both lungs. 2. Mild ileus. Liver Ultrasound 02/17/18 Signed Impressions: CONCLUSION: 1. Hepatomegaly with coarsened liver echotexture. No focal liver lesion is heath ntified. 2. Mild splenomegaly. Catheter Placement X-Ray 02/17/18 Signed Impressions: CONCLUSION: 1. Uncomplicated line placement as above. Foot MRI 02/14/18 Signed Impressions: CONCLUSION: 1. Diffuse subcutaneous edema of the foot with mild enhancement along the dors al aspect of the foot. This could represent cellulitis. No abscess is identifie d and there are no findings to indicate osteomyelitis. 2. There is some degree of osseous fusion at the tibiotalar joint and there is severe degenerative change at the subtalar joint and talonavicular joint. 3. Old healed fracture of the fifth metatarsal. Foot X-Ray 02/13/18 Signed Impressions: CONCLUSION: 1. There is a transverse fracture through the mid fifth metatarsal. Adjacent p eriosteal reaction is present suggesting that it is subacute or chronic. 2. There has been prior arthrodesis of the subtalar joint and tibiotalar joint s with osseous fusion. Hypertrophic osteophytes are present at the talonavicula r joint. Head CT 02/12/18 Signed Impressions: CONCLUSION: Chronic small vessel ischemic and atrophic changes. Cervical Spine CT 02/12/18 Signed Impressions: CONCLUSION: Unremarkable study except for slight degenerative spondylosis. CT Angiography 02/12/18 Signed Impressions: CONCLUSION: 1. Possible nodules within the thyroid gland mainly on the right side. 2. Slight fatty liver. 3. No definite pulmonary embolus. Last Impressions Chest X-Ray 02/25/18599 Signed Impressions: CONCLUSION: Patchy opacity left lung base indicating atelectasis versus mild consolidation. Abdomen X-Ray 02/25/18599 Signed Impressions: CONCLUSION: Nasogastric tube in place. Gas-filled distention of the stomach no longer seen. Nonspecific bowel gas pattern. Abdomen/Pelvis CT 02/22/18 Signed Impressions: CONCLUSION: 1. Small bilateral pleural effusions with dependent atelectasis and consolidat ion in both lungs. 2. Mild ileus. Liver Ultrasound 02/17/18 Signed Impressions: CONCLUSION: 1. Hepatomegaly with coarsened liver echotexture. No focal liver lesion is heath ntified. 2. Mild splenomegaly. Catheter Placement X-Ray 02/17/18 Signed Impressions: CONCLUSION: 1. Uncomplicated line placement as above. Foot MRI 02/14/18 Signed Impressions: CONCLUSION: 1. Diffuse subcutaneous edema of the foot with mild enhancement along the dors al aspect of the foot. This could represent cellulitis. No abscess is identifie d and there are no findings to indicate osteomyelitis. 2. There is some degree of osseous fusion at the tibiotalar joint and there is severe degenerative change at the subtalar joint and talonavicular joint. 3. Old healed fracture of the fifth metatarsal. Foot X-Ray 02/13/18 Signed Impressions: CONCLUSION: 1. There is a transverse fracture through the mid fifth metatarsal. Adjacent p eriosteal reaction is present suggesting that it is subacute or chronic. 2. There has been prior arthrodesis of the subtalar joint and tibiotalar joint s with osseous fusion. Hypertrophic osteophytes are present at the talonavicula r joint. Head CT 02/12/18 Signed Impressions: CONCLUSION: Chronic small vessel ischemic and atrophic changes. Cervical Spine CT 02/12/18 Signed Impressions: CONCLUSION: Unremarkable study except for slight degenerative spondylosis. CT Angiography 02/12/18 Signed Impressions: CONCLUSION: 1. Possible nodules within the thyroid gland mainly on the right side. 2. Slight fatty liver. 3. No definite pulmonary embolus. Last Impressions Chest X-Ray 02/23/18 0600 Signed Impressions: CONCLUSION: Lungs remain grossly clear. Abdomen/Pelvis CT 02/22/18 Signed Impressions: CONCLUSION: 1. Small bilateral pleural effusions with dependent atelectasis and consolidat ion in both lungs. 2. Mild ileus. Abdomen X-Ray 02/22/18 Signed Impressions: CONCLUSION: Distended stomach with NG in distal stomach. No free air. Liver Ultrasound 02/17/18 Signed Impressions: CONCLUSION: 1. Hepatomegaly with coarsened liver echotexture. No focal liver lesion is heath ntified. 2. Mild splenomegaly. Catheter Placement X-Ray 02/17/18 Signed Impressions: CONCLUSION: 1. Uncomplicated line placement as above. Foot MRI 02/14/18 Signed Impressions: CONCLUSION: 1. Diffuse subcutaneous edema of the foot with mild enhancement along the dors al aspect of the foot. This could represent cellulitis. No abscess is identifie d and there are no findings to indicate osteomyelitis. 2. There is some degree of osseous fusion at the tibiotalar joint and there is severe degenerative change at the subtalar joint and talonavicular joint. 3. Old healed fracture of the fifth metatarsal. Foot X-Ray 02/13/18 Signed Impressions: CONCLUSION: 1. There is a transverse fracture through the mid fifth metatarsal. Adjacent p eriosteal reaction is present suggesting that it is subacute or chronic. 2. There has been prior arthrodesis of the subtalar joint and tibiotalar joint s with osseous fusion. Hypertrophic osteophytes are present at the talonavicula r joint. Head CT 02/12/18 Signed Impressions: CONCLUSION: Chronic small vessel ischemic and atrophic changes. Cervical Spine CT 02/12/18 Signed Impressions: CONCLUSION: Unremarkable study except for slight degenerative spondylosis. CT Angiography 02/12/18 Signed Impressions: CONCLUSION: 1. Possible nodules within the thyroid gland mainly on the right side. 2. Slight fatty liver. 3. No definite pulmonary embolus. Last Impressions Chest X-Ray 02/22/18 Signed Impressions: CONCLUSION: Mild basilar opacity is slightly improved since February 19. Endotracheal tube, naso gastric tube and right central line unchanged. Abdomen X-Ray 02/20/18 Signed Impressions: CONCLUSION: Marked gaseous distention of the stomach. Nasogastric tube is present but presu mably not connected to suction. Otherwise, no acute finding is identified. Liver Ultrasound 02/17/18 Signed Impressions: CONCLUSION: 1. Hepatomegaly with coarsened liver echotexture. No focal liver lesion is heath ntified. 2. Mild splenomegaly. Catheter Placement X-Ray 02/17/18 Signed Impressions: CONCLUSION: 1. Uncomplicated line placement as above. Foot MRI 02/14/18 Signed Impressions: CONCLUSION: 1. Diffuse subcutaneous edema of the foot with mild enhancement along the dors al aspect of the foot. This could represent cellulitis. No abscess is identifie d and there are no findings to indicate osteomyelitis. 2. There is some degree of osseous fusion at the tibiotalar joint and there is severe degenerative change at the subtalar joint and talonavicular joint. 3. Old healed fracture of the fifth metatarsal. Foot X-Ray 02/13/18 Signed Impressions: CONCLUSION: 1. There is a transverse fracture through the mid fifth metatarsal. Adjacent p eriosteal reaction is present suggesting that it is subacute or chronic. 2. There has been prior arthrodesis of the subtalar joint and tibiotalar joint s with osseous fusion. Hypertrophic osteophytes are present at the talonavicula r joint. Head CT 02/12/18 Signed Impressions: CONCLUSION: Chronic small vessel ischemic and atrophic changes. Cervical Spine CT 02/12/18 Signed Impressions: CONCLUSION: Unremarkable study except for slight degenerative spondylosis. CT Angiography 02/12/18 Signed Impressions: CONCLUSION: 1. Possible nodules within the thyroid gland mainly on the right side. 2. Slight fatty liver. 3. No definite pulmonary embolus. Abdomen/Pelvis CT 02/12/18 Signed Impressions: CONCLUSION: 1. Slight fatty liver. 2. Probable left adrenal adenoma. Objective Remarks GENERAL: Patient is 62 yo male currently resting in bed, nodding head answering questions SKIN: Warm and dry. No rash HEAD: Normocephalic. EYES: Pupils are about 3 members bilaterally and reactive no scleral icterus. No injection or drainage. NECK: Supple, trachea midline. No JVD or lymphadenopathy. CARDIOVASCULAR: Bradycardic, RR. S1, S2 no S4. Without murmurs, clicks, gallops or rubs RESPIRATORY: Minutes breath sounds the bases. No wheezing. GASTROINTESTINAL: Abdomen soft, non-tender, protuberant nondistended. Hypoactive bowel sounds. MUSCULOSKELETAL: Trace bilateral lower extremities. Open ears to the anterior shins bilaterally with erythema currently covered in Kerlix NEURO: GCS 15. follows commands. Moves all 4 extremities spontaneously. A/P Assessment and Plan Neuro/Psych: On dexmedetomidine drip at 1.2 mcg/kg/min for sedation while intubated Goal of RASS -2 Daily sedation vacation Monitor neuro status. CT brain 02/12: Chronic small vessel ischemic changes Acetaminophen 650 mg every 4 hours as needed fever Pulm: Acute respiratory failure Continue with vent support keep sats >92% Bronchodilators 02/26 SBT- NIF -29, RSBI 51, FVC 700, FVC > 700, positive cuff leak 02/26-extubated CV: Type II NSTEMI, Elevated troponin, likely secondary to demand ischemia Rate 1 diastolic dysfunction/chronic Essential hypertension Hyperlipidemia - CT pulmonary angiogram negative for PE. Continue Lopressor 25mg Q12, Hydralazine 75mg Q8 hr. Monitor HR and BP keep MAP>65mmHg Lactic acid 2.8 on 02/13 STEF 02/16: EF 55-60%, grade I diastolic dysfunction. Small mobile echodensity is noted on the subvalvular apparatus of the posterior mitral valve leaflet. ?small vegetation, sclerosis, or partial chordae tendineae rupture. Cards signed off Currently on metoprolol tartrate 25 twice daily and and hydralazine 75 mg 3 times daily. And isosorbide mononitrate 100 mg daily home Holding simvastatin 20 mg daily for dyslipidemia resumed clinically indicated Renal/: Acute kidney injury secondary to contrast? Sepsis secondary to staph bacteremia ? Rhabdo -resolving BPH Monitor renal function, I/O's, avoid nephrotoxins HD initiated 02/17 Hemodialysis 02/22 -3.[address] Brewer On furosemide 80mg IV daily Holding tamsulosin 0.4 mg daily. Continue to monitor creatinine kinase while on daptomycin GI: Elevated LFT's ( trending down) Ileus Tube feeds- Nepro with goal rate 45ml/hr currently on hold (02/22) secondary to abdominal distention. Stat CT abdomen/pelvis-ileus On Protonix 40mg daily for GI prophylaxis Monitor LFT's, CT abd/pelvis 02/12: Slight fatty liver Repeat CT abdomen/pelvis 02/22 pending Hep B,C non reactive US liver: Hepatomegaly with coarsened liver echotexture. No focal liver lesion is identified. Mild splenomegaly 02/23: Begin Reglan 5 mg every 8 hours 02/23: GI following 02/25: KUB improvement no gaseous distention 02/26-obtain formal swallow ID Staph bacteremia - source LE cellulitis? - MRI bilateral feet: negative for osteo. Positive cellulitis - podiatry consult appreciated -ID consult Dr. Otero -Continue abx per ID (cefazolin, aztreonam micafungin, Dapto) monitor for signs of infections ( Fever, WBC) Pancultured 02/19 ( Blood, sputum, Urine) 02/19 BC: Staph aureus 02/17 BC from: NGTD 02/12: 4/4 bottles MSSA 02/13: 2/4 bottles MSSA 02/15: 1/4 bottles MSSA - sputum culture: NGTD Heme: Normocytic anemia Thrombocytopenia Monitor CBC. Follow trend Endo: Hyperglycemia Diabetes Mellitus, type 2 - increase SSI high scale, q4h, increase insulin detemir 20u Q12hr Currently on glipizide 5 mg twice daily been sitagliptin 50 mg daily Prophylaxis SCDs SQH resumed 02/24 Pantoprazole Lines: Right IJ vascath placed 02/17 by IR Level 3 follow up Physician Evita Blake MD Feb 26, 2018 17:52
--- NOTE | 2018-02-26 17:58 | HHI.NPPN ---
Subjective History of Present Illness The patient is a 62 yo [place] male with PMHx of DM, CAD, CVA, BPH, HTN, Colon CA, Anemia, GERD, who was brought into this facility on 02/12/18 after brother found him down on the ground at his home for >18hrs. Unclear if he had lost consciousness or the mechanism of his fall as the patient is currently intubated and sedated. Has been diagnosed with MSSA sepsis, but source is not entirely clear. Has hardware in his right ankle but podiatry does not feel that this is the source. Underwent STEF this AM and cardiology is suspicious for mitral valve vegetation, however, formal report is pending. His admitting SCr was 1.32 and has deteriorated to 4.14 at time of consult. He is 10L to the positive and UOP is marginal. Nephrology has been consulted for management of acute renal failure. Appears preserved renal functions predating this admission, with baseline SCr 0.6-0.8 as per Oct 2017 admission. Interval History Patient extubated but does appear to be slightly lethargic and currently nonverbal. Review of Systems General General Remarks Patient intubated on ventilatory support. Objective Data Data Vital Signs Date Time Temp Pulse Resp B/P (MAP) Pulse Ox O2 Delivery O2 Flow Rate FiO2 02/26/18 16:25 97 Nasal Cannula 4 02/26/18 16:25 97 Nasal Cannula 4.00 02/26/18 16:00 99.3 69 23 165/76 (105) 98 02/26/18 16:00 69 02/26/18 16:00 30 02/26/18 14:00 63 02/26/18 12:00 30 02/26/18 12:00 98.8 64 27 157/73 (101) 98 02/26/18 12:00 64 02/26/18 11:42 98 30 02/26/18 10:00 64 02/26/18 08:17 98.7 63 25 155/73 (100) 99 02/26/18 08:00 63 02/26/18 08:00 30 02/26/18 07:46 100 30 02/26/18 07:00 98 Mechanical Ventilator 30 02/26/18 06:00 66 02/26/18 05:43 98 30 02/26/18 04:00 68 02/26/18 04:00 99.3 68 22 145/68 (93) 97 02/26/18 04:00 30 02/26/18 03:03 97 30 02/26/18 02:00 67 02/26/18 00:00 30 02/26/18 00:00 70 02/26/18 00:00 99.0 70 28 150/69 (96) 97 02/25/18 23:18 96 30 02/25/18 22:00 69 02/25/18 20:00 71 02/25/18 20:00 30 02/25/18 20:00 99.3 71 29 157/73 (101) 99 02/25/18 19:51 98 30 02/25/18 19:00 98 Mechanical Ventilator 30 02/25/18 18:00 70 -: 02/26/18 0307 02/26/18 0307 Tubes & Lines: Vas-Cath (RIJ) Physical Exam General Appearance: Comfortable, Obese Eyes Eye Exam: Sclera White Neck Neck Exam: Trachea Midline Pulmonary Resp Exam: Clear Bilaterally, Breath Sounds Equal, Decreased Bases Cardiology CV Exam: Regular, Normal Sinus Rhythm Gastrointestinal/Abdomen GI Exam: Soft, Non-Tender Integumentary Skin Exam: Clear, Warm Extremeties Extremities Exam: Moderate Edema (2 plus pitting edema ankles.), Pitting Edema (Generalized edema.) Neurologic Neuro Exam: Sedated Assessment/Plan Discussed Condition With: Sibling Problem List: (1) Acute renal failure ICD Codes: N17.9 - Acute kidney failure, unspecified Plan: Patient's urine output is improving however renal indices are still worsening post each dialysis session and patient is still dialysis dependent. Volume status much improved. We will likely hold dialysis tomorrow with monitoring of urine output and renal indices. No evidence of significant renal recovery at this time as discussed with his sisters by the bedside. Medications should be adjusted for the patient's renal decline. Avoid nephrotoxic medications such as iodinated contrast dyes and NSAIDs. Avoid gadolinium. (2) Sepsis ICD Codes: A41.9 - Sepsis, unspecified organism Status: Acute Plan: Source? Pending STEF results Abx as per ID (3) Rhabdomyolysis ICD Codes: M62.82 - Rhabdomyolysis Status: Acute Plan: Apparent given elevated CPK and urinary sediment. CPK trending down. Continue to monitor. (4) Adrenal nodule ICD Codes: E27.9 - Disorder of adrenal gland, unspecified Plan: Incidentally noted on CT scan. 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 Problem Qualifiers (1) Rhabdomyolysis: Qualified Codes: T79.6XXA - Traumatic ischemia of muscle, initial encounter Jeffy Brewer MD Feb 26, 2018 17:58
[2018-02-27] VITALS (13 sets, daily range): BP systolic 133–177; BP diastolic 67–83; PULSE 80–112; RESP 17–22; TEMP 97.5–98.5; O2SAT 96–99
[2018-02-27] MEDS: LABETALOL HCL 100 MG/20 ML VIAL IV PUSH PRN ×2 (00:11→05:13)
[2018-02-27] MEDS: ceFAZolin 2 GM/DEX PREMIX 50 ML IV SCH ×2 (00:12→12:46)
[2018-02-27] MEDS: hydrALAZINE HCL 25 MG TAB PO SCH ×3 (01:45→18:00)
[2018-02-27] MEDS: INSULIN NovoLIN REGULAR SUPPLEMENTAL SCALE SQ SCH ×6 (02:00→22:55)
[2018-02-27] MEDS: CHLORHEXIDINE GLUCONATE 2 % 1 PACK (2 CLOTHS) TOP SCH (03:16)
[2018-02-27 04:07] LABS: BASOPHIL % 0.3 % (0.0-2.0); EOSINOPHIL % 0.2 % (0.0-4.0); HEMATOCRIT 36.6 % (39.0-51.0); LYMPH % 10.2 % (9.0-44.0); LYMPHOCYTE # 1.6 TH/MM3 (1.0-4.8); MEAN CELL VOLUME 84.1 FL (80.0-100.0); MEAN CORPUSCULAR HEMOGLOBIN 27.5 PG (27.0-34.0); MEAN CORPUSCULAR HGB CONC 32.8 % (32.0-36.0); MEAN PLATELET VOLUME 9.3 FL (7.0-11.0); MONO % 5.8 % (0.0-8.0); MONOCYTE # 0.9 TH/MM3 (0-0.9); NEUT % 83.5 % (16.0-70.0); PLATELET COUNT 356 TH/MM3 (150-450); RED BLOOD COUNT 4.35 MIL/MM3 (4.50-5.90); WHITE BLOOD COUNT 15.6 TH/MM3 (4.0-11.0)
[2018-02-27 04:28] LABS: ALBUMIN 2.8 GM/DL (3.4-5.0); BICARBONATE 19.2 MEQ/L (21.0-32.0); BLOOD UREA NITROGEN 89 MG/DL (7-18); CALCIUM 8.7 MG/DL (8.5-10.1); CHLORIDE 97 MEQ/L (98-107); CREATININE 5.78 MG/DL (0.60-1.30); GLOMERULAR FILTRATION RATE 10 ML/MIN (>89); GLUCOSE,RANDOM 218 MG/DL (74-106); MAGNESIUM 2.8 MG/DL (1.5-2.5); SODIUM (NA) 142 MEQ/L (136-145)
[2018-02-27 04:30] LABS: ALT (GPT) 6 U/L (12-78); AST (GOT) 26 U/L (15-37); PHOSPHORUS 8.9 MG/DL (2.5-4.9)
[2018-02-27 04:32] LABS: ALKALINE PHOSPHATASE 97 U/L (45-117); TOTAL BILIRUBIN ADULT 0.6 MG/DL (0.2-1.0); TOTAL PROTEIN 8.2 GM/DL (6.4-8.2)
[2018-02-27] MEDS: METOCLOPRAMIDE HCL 10 MG/2 ML VIAL IV SCH ×3 (05:12→21:34)
--- NOTE | 2018-02-27 07:26 | HHI.CCPN ---
Subjective Remarks/Hospital Course Hospital Course: This is a 62yM with history of prior stroke, DM, CAD who presents after his brother found him after he fell. He states he was on the floor for > 18 hours. He endorses a week of fatigue, fever, chills. denies any other symptoms. denies chest pain, shortness of breath, nausea, vomiting, constipation, diarrhea. does endorse generalized abdominal pain which is mild. in the ER he was tachycardic and very diaphoretic. he has laboratory evidence of CK 7000, wbc 17k, Cr 1.3, trop 0.8. CT chest/abd/pelvis unremarkable. CT head and c-spine negative for trauma. febrile to 103 in the ER. given 2L NS ivf with improvement in his HR. remainder of ROS negative. 02/13: somewhat improved, feeling slightly better. remains febrile. cultures still pending. repeat lactate pending. HR improving. 02/14: Patient had episodes of temperatures of 103 with diaphoresis tachypnea yesterday. Blood cultures growing staph aureus 4 out of 4. Evaluated by ANGI Otero yesterday. Respiratory status declined overnight and patient was intubated and placed on mechanical ventilation. Currently remains sedated, orally intubated on mechanical ventilation. 02/15: Remains sedated, orally intubated on mechanical ventilation. Cardiology consulted by Dr. Otero to evaluate for STEF for persistent MSSA bacteremia. 02/16: remains very critically ill. persistent + blood cultures for MSSA. STEF still pending. Cr doubled overnight again despite +10L in last 48h. no improvement at all, and all organ systems are worse. no implantable devices. central lines were placed on admission. 02/17 Patient remains sedated with Diprivan and Fentanyl drip. Afebrile. 02/18 Patient was started on HD yesterday remains sedated and intubated. 02/19 Patient s/p HD yesterday with removal 3L. Spiked fever with T:101.3 at 4am. Sedated and intubated 02/20 No events overnight Patient tolerated CPAP for most of day yesterday. Off Diprivan and Fentanyl drips and now on Precedex drip. s/p HD yesterday with removal 3L. T:102.1 at 8 am. 02/21 Patient remains intubated on Precedex drip to facilitate with weaning trials. s/p HD yesterday with removal 3.5L. Had hematuria overnight night placed on CBI now hematuria is clearing. SUBJECTIVE: 02/22: Afebrile. NG tube placed to low wall suction secondary to increasing abdominal distention. Last KUB 02/20 revealed gaseous distention. Will check stat CT abdomen/pelvis with oral contrast 02/23: Late entry note. Patient seen at noon. NG tube output overnight approximately 100 cc. Currently the patient remains n.p.o.. GI has been consulted. Will initiate Reglan 5 mg every 8 hour. Patient tolerated CPAP trials for approximately 8 hours today. 02/24: T-max 99.5. Patient continues to have hypoactive bowel sounds Reglan every 8 hours was initiated last evening C. difficile is pending. The patient was noted to have 700 cc of residual fluid this a.m. per G-tube despite low intermittent wall suction. GI has been consulted. 02/25: Late entry note. Patient seen at 10 AM. afebrile. Patient remained on CPAP trials throughout the day. The patient is awake and alert nodding head to question denies pain KUB shows improvement. 02/26: Late entry note. The patient was seen at 1300. The patient was maintained on CPAP trials throughout the night SBT was performed early this a.m. the patient initially was lethargic Precedex was discontinued SBT trial was again reinitiated around 12 noon patient successfully passed and was extubated. 02/27: No acute events overnight. Patient has been weaned down to 2 L nasal cannula. Responding well. The patient passed bedside swallow test. Formal swallow and dietary recommendations. No episodes of nausea throughout the night. Objective Vital Signs Date Time Temp Pulse Resp B/P (MAP) Pulse Ox O2 Delivery O2 Flow Rate FiO2 02/27/18 06:00 80 02/27/18 04:00 98.5 21 174/83 (113) 98 02/26/18 19:25 Nasal Cannula 4.00 02/26/18 16:00 30 Intake and Output 02/27/18 02/27/18 02/28/18 08:00 16:00 00:00 Intake Total 50 ml Output Total 250 ml Balance -200 ml Result Diagram: 02/27/18 0231 02/27/18 0231 Imaging Last Impressions Chest X-Ray 6/13/18 0600 Signed Impressions: CONCLUSION: No significant interval change with persistent mild patchy left lung base opaci ty. Abdomen X-Ray 02/25/18599 Signed Impressions: CONCLUSION: Nasogastric tube in place. Gas-filled distention of the stomach no longer seen. Nonspecific bowel gas pattern. Abdomen/Pelvis CT 02/22/18 Signed Impressions: CONCLUSION: 1. Small bilateral pleural effusions with dependent atelectasis and consolidat ion in both lungs. 2. Mild ileus. Liver Ultrasound 02/17/18 Signed Impressions: CONCLUSION: 1. Hepatomegaly with coarsened liver echotexture. No focal liver lesion is heath ntified. 2. Mild splenomegaly. Catheter Placement X-Ray 02/17/18 Signed Impressions: CONCLUSION: 1. Uncomplicated line placement as above. Foot MRI 02/14/18 Signed Impressions: CONCLUSION: 1. Diffuse subcutaneous edema of the foot with mild enhancement along the dors al aspect of the foot. This could represent cellulitis. No abscess is identifie d and there are no findings to indicate osteomyelitis. 2. There is some degree of osseous fusion at the tibiotalar joint and there is severe degenerative change at the subtalar joint and talonavicular joint. 3. Old healed fracture of the fifth metatarsal. Foot X-Ray 02/13/18 Signed Impressions: CONCLUSION: 1. There is a transverse fracture through the mid fifth metatarsal. Adjacent p eriosteal reaction is present suggesting that it is subacute or chronic. 2. There has been prior arthrodesis of the subtalar joint and tibiotalar joint s with osseous fusion. Hypertrophic osteophytes are present at the talonavicula r joint. Head CT 02/12/18 Signed Impressions: CONCLUSION: Chronic small vessel ischemic and atrophic changes. Cervical Spine CT 02/12/18 Signed Impressions: CONCLUSION: Unremarkable study except for slight degenerative spondylosis. CT Angiography 02/12/18 Signed Impressions: CONCLUSION: 1. Possible nodules within the thyroid gland mainly on the right side. 2. Slight fatty liver. 3. No definite pulmonary embolus. Last Impressions Chest X-Ray 02/26/18599 Signed Impressions: CONCLUSION: No significant interval change with persistent mild patchy left lung base opaci ty. Abdomen X-Ray 02/25/18599 Signed Impressions: CONCLUSION: Nasogastric tube in place. Gas-filled distention of the stomach no longer seen. Nonspecific bowel gas pattern. Abdomen/Pelvis CT 02/22/18 Signed Impressions: CONCLUSION: 1. Small bilateral pleural effusions with dependent atelectasis and consolidat ion in both lungs. 2. Mild ileus. Liver Ultrasound 02/17/18 Signed Impressions: CONCLUSION: 1. Hepatomegaly with coarsened liver echotexture. No focal liver lesion is heath ntified. 2. Mild splenomegaly. Catheter Placement X-Ray 02/17/18 Signed Impressions: CONCLUSION: 1. Uncomplicated line placement as above. Foot MRI 02/14/18 Signed Impressions: CONCLUSION: 1. Diffuse subcutaneous edema of the foot with mild enhancement along the dors al aspect of the foot. This could represent cellulitis. No abscess is identifie d and there are no findings to indicate osteomyelitis. 2. There is some degree of osseous fusion at the tibiotalar joint and there is severe degenerative change at the subtalar joint and talonavicular joint. 3. Old healed fracture of the fifth metatarsal. Foot X-Ray 02/13/18 Signed Impressions: CONCLUSION: 1. There is a transverse fracture through the mid fifth metatarsal. Adjacent p eriosteal reaction is present suggesting that it is subacute or chronic. 2. There has been prior arthrodesis of the subtalar joint and tibiotalar joint s with osseous fusion. Hypertrophic osteophytes are present at the talonavicula r joint. Head CT 02/12/18 Signed Impressions: CONCLUSION: Chronic small vessel ischemic and atrophic changes. Cervical Spine CT 02/12/18 Signed Impressions: CONCLUSION: Unremarkable study except for slight degenerative spondylosis. CT Angiography 02/12/18 Signed Impressions: CONCLUSION: 1. Possible nodules within the thyroid gland mainly on the right side. 2. Slight fatty liver. 3. No definite pulmonary embolus. Last Impressions Chest X-Ray 02/25/18599 Signed Impressions: CONCLUSION: Patchy opacity left lung base indicating atelectasis versus mild consolidation. Abdomen X-Ray 02/25/18599 Signed Impressions: CONCLUSION: Nasogastric tube in place. Gas-filled distention of the stomach no longer seen. Nonspecific bowel gas pattern. Abdomen/Pelvis CT 02/22/18 Signed Impressions: CONCLUSION: 1. Small bilateral pleural effusions with dependent atelectasis and consolidat ion in both lungs. 2. Mild ileus. Liver Ultrasound 02/17/18 Signed Impressions: CONCLUSION: 1. Hepatomegaly with coarsened liver echotexture. No focal liver lesion is heath ntified. 2. Mild splenomegaly. Catheter Placement X-Ray 02/17/18 Signed Impressions: CONCLUSION: 1. Uncomplicated line placement as above. Foot MRI 02/14/18 Signed Impressions: CONCLUSION: 1. Diffuse subcutaneous edema of the foot with mild enhancement along the dors al aspect of the foot. This could represent cellulitis. No abscess is identifie d and there are no findings to indicate osteomyelitis. 2. There is some degree of osseous fusion at the tibiotalar joint and there is severe degenerative change at the subtalar joint and talonavicular joint. 3. Old healed fracture of the fifth metatarsal. Foot X-Ray 02/13/18 Signed Impressions: CONCLUSION: 1. There is a transverse fracture through the mid fifth metatarsal. Adjacent p eriosteal reaction is present suggesting that it is subacute or chronic. 2. There has been prior arthrodesis of the subtalar joint and tibiotalar joint s with osseous fusion. Hypertrophic osteophytes are present at the talonavicula r joint. Head CT 02/12/18 Signed Impressions: CONCLUSION: Chronic small vessel ischemic and atrophic changes. Cervical Spine CT 02/12/18 Signed Impressions: CONCLUSION: Unremarkable study except for slight degenerative spondylosis. CT Angiography 02/12/18 Signed Impressions: CONCLUSION: 1. Possible nodules within the thyroid gland mainly on the right side. 2. Slight fatty liver. 3. No definite pulmonary embolus. Last Impressions Chest X-Ray 02/23/18 0600 Signed Impressions: CONCLUSION: Lungs remain grossly clear. Abdomen/Pelvis CT 02/22/18 Signed Impressions: CONCLUSION: 1. Small bilateral pleural effusions with dependent atelectasis and consolidat ion in both lungs. 2. Mild ileus. Abdomen X-Ray 02/22/18 Signed Impressions: CONCLUSION: Distended stomach with NG in distal stomach. No free air. Liver Ultrasound 02/17/18 Signed Impressions: CONCLUSION: 1. Hepatomegaly with coarsened liver echotexture. No focal liver lesion is heath ntified. 2. Mild splenomegaly. Catheter Placement X-Ray 02/17/18 Signed Impressions: CONCLUSION: 1. Uncomplicated line placement as above. Foot MRI 02/14/18 Signed Impressions: CONCLUSION: 1. Diffuse subcutaneous edema of the foot with mild enhancement along the dors al aspect of the foot. This could represent cellulitis. No abscess is identifie d and there are no findings to indicate osteomyelitis. 2. There is some degree of osseous fusion at the tibiotalar joint and there is severe degenerative change at the subtalar joint and talonavicular joint. 3. Old healed fracture of the fifth metatarsal. Foot X-Ray 02/13/18 Signed Impressions: CONCLUSION: 1. There is a transverse fracture through the mid fifth metatarsal. Adjacent p eriosteal reaction is present suggesting that it is subacute or chronic. 2. There has been prior arthrodesis of the subtalar joint and tibiotalar joint s with osseous fusion. Hypertrophic osteophytes are present at the talonavicula r joint. Head CT 02/12/18 Signed Impressions: CONCLUSION: Chronic small vessel ischemic and atrophic changes. Cervical Spine CT 02/12/18 Signed Impressions: CONCLUSION: Unremarkable study except for slight degenerative spondylosis. CT Angiography 02/12/18 Signed Impressions: CONCLUSION: 1. Possible nodules within the thyroid gland mainly on the right side. 2. Slight fatty liver. 3. No definite pulmonary embolus. Last Impressions Chest X-Ray 02/22/18 Signed Impressions: CONCLUSION: Mild basilar opacity is slightly improved since February 19. Endotracheal tube, naso gastric tube and right central line unchanged. Abdomen X-Ray 02/20/18 Signed Impressions: CONCLUSION: Marked gaseous distention of the stomach. Nasogastric tube is present but presu mably not connected to suction. Otherwise, no acute finding is identified. Liver Ultrasound 02/17/18 Signed Impressions: CONCLUSION: 1. Hepatomegaly with coarsened liver echotexture. No focal liver lesion is heath ntified. 2. Mild splenomegaly. Catheter Placement X-Ray 02/17/18 Signed Impressions: CONCLUSION: 1. Uncomplicated line placement as above. Foot MRI 02/14/18 Signed Impressions: CONCLUSION: 1. Diffuse subcutaneous edema of the foot with mild enhancement along the dors al aspect of the foot. This could represent cellulitis. No abscess is identifie d and there are no findings to indicate osteomyelitis. 2. There is some degree of osseous fusion at the tibiotalar joint and there is severe degenerative change at the subtalar joint and talonavicular joint. 3. Old healed fracture of the fifth metatarsal. Foot X-Ray 02/13/18 Signed Impressions: CONCLUSION: 1. There is a transverse fracture through the mid fifth metatarsal. Adjacent p eriosteal reaction is present suggesting that it is subacute or chronic. 2. There has been prior arthrodesis of the subtalar joint and tibiotalar joint s with osseous fusion. Hypertrophic osteophytes are present at the talonavicula r joint. Head CT 02/12/18 Signed Impressions: CONCLUSION: Chronic small vessel ischemic and atrophic changes. Cervical Spine CT 02/12/18 Signed Impressions: CONCLUSION: Unremarkable study except for slight degenerative spondylosis. CT Angiography 02/12/18 Signed Impressions: CONCLUSION: 1. Possible nodules within the thyroid gland mainly on the right side. 2. Slight fatty liver. 3. No definite pulmonary embolus. Abdomen/Pelvis CT 02/12/18 Signed Impressions: CONCLUSION: 1. Slight fatty liver. 2. Probable left adrenal adenoma. Objective Remarks GENERAL: Patient is 62 yo male currently resting in bed, nodding head answering questions appropriately SKIN: Warm and dry. No rash HEAD: Normocephalic. EYES: Pupils are about 3 members bilaterally and reactive no scleral icterus. No injection or drainage. NECK: Supple, trachea midline. No JVD or lymphadenopathy. CARDIOVASCULAR: Bradycardic, RR. S1, S2 no S4. Without murmurs, clicks, gallops or rubs RESPIRATORY: Minutes breath sounds the bases. No wheezing. GASTROINTESTINAL: Abdomen soft, non-tender, protuberant nondistended. Hypoactive bowel sounds. MUSCULOSKELETAL: Trace bilateral lower extremities. Open ears to the anterior shins bilaterally with erythema currently covered in Kerlix NEURO: GCS 15. follows commands. Moves all 4 extremities spontaneously. A/P Assessment and Plan Neuro/Psych: Avoid sedative type medication Monitor neuro status. CT brain 02/12: Chronic small vessel ischemic changes Acetaminophen 650 mg every 4 hours as needed fever Pulm: Acute respiratory failure Continue with vent support keep sats >92% Bronchodilators 02/26 SBT- NIF -29, RSBI 51, FVC 700, FVC > 700, positive cuff leak 02/26-extubated Incentive spirometry Wean nasal cannula O2 1-4 LPM to maintain O2 saturation CV: Type II NSTEMI, Elevated troponin, likely secondary to demand ischemia Rate 1 diastolic dysfunction/chronic Essential hypertension Hyperlipidemia - CT pulmonary angiogram negative for PE. Continue Lopressor 25mg Q12, Hydralazine 75mg Q8 hr. Monitor HR and BP keep MAP>65mmHg Lactic acid 2.8 on 02/13 STEF 02/16: EF 55-60%, grade I diastolic dysfunction. Small mobile echodensity is noted on the subvalvular apparatus of the posterior mitral valve leaflet. ?small vegetation, sclerosis, or partial chordae tendineae rupture. Cards signed off Currently on metoprolol tartrate 25 twice daily and and hydralazine 75 mg 3 times daily. And isosorbide mononitrate 100 mg daily home Holding simvastatin 20 mg daily for dyslipidemia resumed clinically indicated Renal/: Acute kidney injury secondary to contrast? Sepsis secondary to staph bacteremia ? Rhabdo -resolving BPH Monitor renal function, I/O's, avoid nephrotoxins HD initiated 02/17 Hemodialysis scheduling- Dr. Brewer, nephrology following On furosemide 80mg IV daily Holding tamsulosin 0.4 mg daily. Continue to monitor creatinine kinase while on daptomycin GI: Elevated LFT's ( trending down) Ileus Tube feeds- Nepro with goal rate 45ml/hr currently on hold (02/22) secondary to abdominal distention. Stat CT abdomen/pelvis-ileus On Protonix 40mg daily for GI prophylaxis Monitor LFT's, CT abd/pelvis 02/12: Slight fatty liver Repeat CT abdomen/pelvis 02/22 pending Hep B,C non reactive US liver: Hepatomegaly with coarsened liver echotexture. No focal liver lesion is identified. Mild splenomegaly 02/23: Begin Reglan 5 mg every 8 hours 02/23: GI following 02/25: KUB improvement no gaseous distention 02/26-obtain formal swallow ID Staph bacteremia - source LE cellulitis? - MRI bilateral feet: negative for osteo. Positive cellulitis - podiatry consult appreciated -ID consult Dr. Otero -Continue abx per ID (cefazolin, aztreonam micafungin, Dapto) monitor for signs of infections ( Fever, WBC) Pancultured 02/19 ( Blood, sputum, Urine) 02/19 BC: Staph aureus 02/17 BC from: NGTD 02/12: 12/18 bottles MSSA 02/13: 10/20 bottles MSSA 02/15: 09/19 bottles MSSA - sputum culture: NGTD Heme: Normocytic anemia Thrombocytopenia Monitor CBC. Follow trend Endo: Hyperglycemia Diabetes Mellitus, type 2 - increase SSI high scale, q4h, increase insulin detemir 20u Q12hr Currently on glipizide 5 mg twice daily been sitagliptin 50 mg daily Prophylaxis SCDs SQH resumed 02/24 Pantoprazole Lines: Right IJ vascath placed 02/17 by IR Level 2 follow up. Plan transfer to [facility] in a.m. plan transfer to floor when bed becomes available. Physician Evita Blake MD Feb 27, 2018 07:26
[2018-02-27] MEDS: CHLORHEXIDINE 0.12% (ORAL KIT) 15 ML CUP MT SCH ×2 (08:00→20:00)
[2018-02-27] MEDS: ARTIFICIAL TEARS OPTH OINT 3.5 APPLIC/3.5 GM TUBO EACH EYE SCH ×2 (09:00→21:33)
[2018-02-27] MEDS: DOCUSATE SODIUM 100 MG/10 ML UDC PO SCH ×2 (09:00→21:34)
[2018-02-27] MEDS: SENNOSIDES SYRUP 8.8 MG/5 ML CUP PO SCH (09:00)
[2018-02-27] MEDS: INSULIN DETEMIR 100 UNITS/ML VIAL SQ SCH ×2 (09:00→21:35)
[2018-02-27] MEDS: METOPROLOL TARTRATE 25 MG TAB PO SCH ×2 (09:46→21:34)
[2018-02-27] MEDS: HEPARIN SODIUM - SQ 10,000 UNITS/ML VIAL SQ SCH ×2 (09:46→21:34)
[2018-02-27] MEDS: FUROSEMIDE 20 MG/2 ML VIAL IV PUSH SCH ×2 (09:47→21:34)
[2018-02-27] MEDS: SODIUM CHLORIDE 0.9% FLUSH 10 ML FLUSH IV FLUSH PRN (09:47)
[2018-02-27] MEDS: PANTOPRAZOLE SODIUM 40 MG VIAL IV PUSH SCH (09:47)
[2018-02-27] MEDS: ACETAMINOPHEN 325 MG TAB PO PRN (12:45)
[2018-02-27] MEDS: DAPTOmycin INJ 800 MG in SODIUM CHLORIDE 0.9% INJ 100 ML IV SCH (21:33)
[2018-02-28] VITALS (10 sets, daily range): BP systolic 133–161; BP diastolic 69–96; PULSE 74–102; RESP 18; TEMP 97.6–98.2; O2SAT 96–98
[2018-02-28] MEDS: hydrALAZINE HCL 25 MG TAB PO SCH ×3 (01:10→18:00)
[2018-02-28] MEDS: HYDROmorphone HCL PF 0.5 MG/0.5 ML SYRINGE IV PUSH PRN ×2 (01:11→13:12)
[2018-02-28] MEDS: ceFAZolin 2 GM/DEX PREMIX 50 ML IV SCH ×3 (01:11→23:58)
[2018-02-28] MEDS: INSULIN NovoLIN REGULAR SUPPLEMENTAL SCALE SQ SCH ×5 (01:12→22:00)
[2018-02-28] MEDS: CHLORHEXIDINE GLUCONATE 2 % 1 PACK (2 CLOTHS) TOP SCH (03:25)
[2018-02-28] MEDS: METOCLOPRAMIDE HCL 10 MG/2 ML VIAL IV SCH ×3 (04:00→22:39)
[2018-02-28] MEDS: CHLORHEXIDINE 0.12% (ORAL KIT) 15 ML CUP MT SCH ×2 (08:00→20:00)
[2018-02-28 08:01] LABS: AUTOMATED NEUTROPHIL # 7.9 TH/MM3 (1.8-7.7); BASOPHIL # 0.1 TH/MM3 (0-0.2); EOSINOPHIL # 0.5 TH/MM3 (0-0.4); EOSINOPHIL % 4.5 % (0.0-4.0); HEMATOCRIT 34.2 % (39.0-51.0); HEMOGLOBIN 11.1 GM/DL (13.0-17.0); LYMPH % 13.4 % (9.0-44.0); LYMPHOCYTE # 1.5 TH/MM3 (1.0-4.8); MEAN CELL VOLUME 83.1 FL (80.0-100.0); MEAN CORPUSCULAR HGB CONC 32.5 % (32.0-36.0); MEAN PLATELET VOLUME 10.1 FL (7.0-11.0); MONO % 11.9 % (0.0-8.0); MONOCYTE # 1.4 TH/MM3 (0-0.9); NEUT % 69.2 % (16.0-70.0); PLATELET COUNT 324 TH/MM3 (150-450); RED BLOOD COUNT 4.12 MIL/MM3 (4.50-5.90); RED CELL DISTRIBUTION WIDTH 15.7 % (11.6-17.2); WHITE BLOOD COUNT 11.4 TH/MM3 (4.0-11.0)
[2018-02-28 08:23] LABS: BLOOD UREA NITROGEN 115 MG/DL (7-18); CREATININE 7.26 MG/DL (0.60-1.30); GLOMERULAR FILTRATION RATE 8 ML/MIN (>89); GLUCOSE,RANDOM 130 MG/DL (74-106)
[2018-02-28 08:24] LABS: ALBUMIN 2.6 GM/DL (3.4-5.0); ALKALINE PHOSPHATASE 86 U/L (45-117); ALT (GPT) 7 U/L (12-78); AST (GOT) 29 U/L (15-37); BICARBONATE 21.5 MEQ/L (21.0-32.0); CALCIUM 8.1 MG/DL (8.5-10.1); CHLORIDE 94 MEQ/L (98-107); MAGNESIUM 2.7 MG/DL (1.5-2.5); SODIUM (NA) 136 MEQ/L (136-145); TOTAL BILIRUBIN ADULT 0.4 MG/DL (0.2-1.0); TOTAL PROTEIN 7.2 GM/DL (6.4-8.2)
[2018-02-28 08:45] LABS: PHOSPHORUS 9.3 MG/DL (2.5-4.9)
[2018-02-28] MEDS: ARTIFICIAL TEARS OPTH OINT 3.5 APPLIC/3.5 GM TUBO EACH EYE SCH ×2 (09:00→22:38)
[2018-02-28] MEDS: SENNOSIDES SYRUP 8.8 MG/5 ML CUP PO SCH (10:00)
[2018-02-28] MEDS: DOCUSATE SODIUM 100 MG/10 ML UDC PO SCH ×2 (10:00→23:05)
[2018-02-28] MEDS: INSULIN DETEMIR 100 UNITS/ML VIAL SQ SCH ×2 (10:30→23:06)
[2018-02-28 10:36] LABS: AUTOMATED NEUTROPHIL # 8.3 TH/MM3 (1.8-7.7); BASOPHIL # 0.1 TH/MM3 (0-0.2); BASOPHIL % 0.8 % (0.0-2.0); EOSINOPHIL # 0.6 TH/MM3 (0-0.4); HEMATOCRIT 35.4 % (39.0-51.0); HEMOGLOBIN 11.7 GM/DL (13.0-17.0); LYMPH % 13.5 % (9.0-44.0); LYMPHOCYTE # 1.6 TH/MM3 (1.0-4.8); MEAN CELL VOLUME 83.4 FL (80.0-100.0); MEAN CORPUSCULAR HEMOGLOBIN 27.6 PG (27.0-34.0); MEAN PLATELET VOLUME 9.3 FL (7.0-11.0); MONO % 8.6 % (0.0-8.0); NEUT % 72.1 % (16.0-70.0); PLATELET COUNT 388 TH/MM3 (150-450); RED BLOOD COUNT 4.25 MIL/MM3 (4.50-5.90); RED CELL DISTRIBUTION WIDTH 15.8 % (11.6-17.2); WHITE BLOOD COUNT 11.6 TH/MM3 (4.0-11.0)
[2018-02-28] MEDS: METOPROLOL TARTRATE 25 MG TAB PO SCH ×2 (10:45→22:39)
[2018-02-28 10:51] LABS: INTERNATIONAL NORMALIZED RATIO 1.5 RATIO; PROTHROMBIN TIME - PATIENT 15.1 SEC (9.8-11.6)
--- NOTE | 2018-02-28 10:51 | HHI.PR ---
Subjective Remarks this am- noted upward rolling of eyeballs with preferential gaze awake , nted by family to have repetitive right hand movement Stat BS 172 Objective Vitals Vital Signs Date Time Temp Pulse Resp B/P (MAP) Pulse Ox O2 Delivery O2 Flow Rate FiO2 02/28/18 08:00 98.2 94 18 155/72 (99) 97 02/28/18 07:41 Nasal Cannula 4.00 02/28/18 04:00 90 02/28/18 03:37 98.0 91 18 133/96 (108) 98 02/28/18 01:36 20 02/27/18 23:35 95 02/27/18 23:26 20 02/27/18 23:21 98.0 90 18 166/80 (108) 98 02/27/18 20:00 Nasal Cannula 4.00 02/27/18 19:50 98.1 104 18 156/79 (104) 99 02/27/18 19:45 97 02/27/18 16:05 97.7 85 17 133/67 (89) 98 02/27/18 14:00 96 Nasal Cannula 2.00 30 02/27/18 12:00 98.0 88 22 156/74 (101) 97 02/27/18 12:00 88 I/O 02/27/18 02/27/18 02/27/18 02/28/18 02/28/18 02/28/18 07:00 15:00 23:00 07:00 15:00 23:00 Intake Total 50 ml 220 ml 150 ml Output Total 250 ml 200 ml 350 ml Balance -200 ml 20 ml -200 ml Intake Oral 120 ml 100 ml IV Total 50 ml 100 ml 50 ml Output Urine Total 250 ml 200 ml 350 ml # Bowel Movements 2 0 Result Diagram: 02/28/18 1015 02/28/18 0511 Imaging Last Impressions Head CT 02/28/18 0000 Signed Impressions: CONCLUSION: 1. Central and cortical atrophy with periventricular ischemic changes, negativ e for acute process. Chest X-Ray 02/26/18 0600 Signed Impressions: CONCLUSION: No significant interval change with persistent mild patchy left lung base opaci ty. Abdomen X-Ray 02/25/18 0600 Signed Impressions: CONCLUSION: Nasogastric tube in place. Gas-filled distention of the stomach no longer seen. Nonspecific bowel gas pattern. Abdomen/Pelvis CT 02/22/18 Signed Impressions: CONCLUSION: 1. Small bilateral pleural effusions with dependent atelectasis and consolidat ion in both lungs. 2. Mild ileus. Liver Ultrasound 02/17/18 Signed Impressions: CONCLUSION: 1. Hepatomegaly with coarsened liver echotexture. No focal liver lesion is heath ntified. 2. Mild splenomegaly. Catheter Placement X-Ray 02/17/18 Signed Impressions: CONCLUSION: 1. Uncomplicated line placement as above. Foot MRI 02/14/18 Signed Impressions: CONCLUSION: 1. Diffuse subcutaneous edema of the foot with mild enhancement along the dors al aspect of the foot. This could represent cellulitis. No abscess is identifie d and there are no findings to indicate osteomyelitis. 2. There is some degree of osseous fusion at the tibiotalar joint and there is severe degenerative change at the subtalar joint and talonavicular joint. 3. Old healed fracture of the fifth metatarsal. Foot X-Ray 02/13/18 Signed Impressions: CONCLUSION: 1. There is a transverse fracture through the mid fifth metatarsal. Adjacent p eriosteal reaction is present suggesting that it is subacute or chronic. 2. There has been prior arthrodesis of the subtalar joint and tibiotalar joint s with osseous fusion. Hypertrophic osteophytes are present at the talonavicula r joint. Cervical Spine CT 02/12/18 Signed Impressions: CONCLUSION: Unremarkable study except for slight degenerative spondylosis. CT Angiography 02/12/18 Signed Impressions: CONCLUSION: 1. Possible nodules within the thyroid gland mainly on the right side. 2. Slight fatty liver. 3. No definite pulmonary embolus. Objective Remarks awake but confused , able to state his naema and identify his sister on repeated questioning, gripped both hand when asked equally weak speech dysarthric pupils equla but with right preferential gaze + mild gag reflex no facial asymmetry no rales regular rhtyhm abdomen soft , PEG in place extremities - no edema moves all extremities eqaully- generalizxed weakness A/P Assessment and Plan 62 years old Acute SZ episode r/o acute neurologic embolic event - currently appears post ictal - stat EEG - stat head CT. MRI if negative - neuro check q 4 - Neurology consult- - d/w Dr. Rutherford - ? LP Severe Sepsis present on admission Mitral valve endocarditis, MSSA MSSA high grade bacteremia. Bilateral LE cellulitis. Ho Rt foot hardware infection MRI w/o osteomyelitis in either feet DR Rubio ff - will d/w her acute event - ? need for LP acute resp failure on vent.- resolved off vent Elevated LFTs- trending down acute renal failure oliguric- secondary to rhabdomyolysis and sepsis, meds oxacillin, vanco etc. - on HD - Renal ff CAD s/p CABG Romeo Nevarez MD Feb 28, 2018 10:51
--- NOTE | 2018-02-28 10:52 | RADRPT ---
EXAM DATE: 02/28/2018 10:36 AM EDT AGE/SEX: 62 years / Male INDICATIONS: Stroke alert, right side weakness. CLINICAL DATA: This is the patient's initial encounter. Patient reports that signs and symptoms have been present for 1 day and indicates a pain score of Nonresponsive. MEDICAL/SURGICAL HISTORY: Renal disease. dialysis patient Non-responsive. RADIATION DOSE: 52.83 CTDI (mGy) COMPARISON: [facility] [place], CT BRAIN W/O CONTRAST, 02/12/2018. . Report was called to Dr. Son while on scanner TECHNIQUE: CT of the head without contrast. Using automated exposure control and adjustment of the mA and/or kV according to patient size, radiation dose was kept as low as reasonably achievable to ob tain optimal diagnostic quality images. FINDINGS: Mild central and cortical atrophy with old ischemic changes in the left proximal region. Mild promine nce to the ventricles. There is no parenchymal hemorrhage. There are no extra-axial fluid collections appreciated. There is no acute infarction. Orbits and paranasal sinuses unremarkable. Posterior fossa is unremarkable. CONCLUSION: 1. Central and cortical atrophy with periventricular ischemic changes, negative for acute process. Electronically signed by: Mann Winston MD 02/28/2018 10:51 AM EDT
[2018-02-28 11:02] LABS: TROPONIN I 0.1 NG/ML (0.02-0.05)
[2018-02-28] MEDS: FUROSEMIDE 20 MG/2 ML VIAL IV PUSH SCH ×2 (13:15→23:06)
[2018-02-28] MEDS: PANTOPRAZOLE SODIUM 40 MG VIAL IV PUSH SCH (13:27)
[2018-02-28] MEDS: HEPARIN SODIUM - SQ 10,000 UNITS/ML VIAL SQ SCH ×2 (13:32→22:39)
--- NOTE | 2018-02-28 15:02 | MG ---
cc: Yogi Landis MD EEG RECORD NUMBER: [id number] DATE OF : 1955 FINDINGS: Stage II sleep with spindles, theta and delta activity, 20-50 microvolts. During arousal the background EEG incremented to 5-7 Hz. Myogenic artifact with questionable tiny sharp transients occurring in the frontal channels around epoch 20. Single lead EKG showing sinus rhythm. INTERPRETATION: Mild encephalopathy in sleep state. Clinical correlation advised. Yogi Landis MD MG/SB , 02:49 PM , 03:02 PM
--- NOTE | 2018-02-28 15:50 | RADRPT ---
EXAM DATE: 02/28/2018 3:08 PM EDT AGE/SEX: 62 years / Male INDICATIONS: Stroke. CLINICAL DATA: This is the patient's initial encounter. Patient reports that signs and symptoms have been present for 1 day and indicates a pain score of Nonresponsive. MEDICAL/SURGICAL HISTORY: Carcinoma, colon. Cardiovascular disease. Diabetes mellitus type II . CHF. HLD. Cholecystectomy. Cardiac cath. Bilateral foot sx. COMPARISON: [facility] [place], CT BRAIN W/O CONTRAST, 02/28/2018. . TECHNIQUE: Multiplanar, multisequence examination of the brain was performed without contrast. FINDINGS: Cerebrum: Symmetric mild ventricular prominence. Prominence of extra-axial sulcal spaces. No eviden ce of midline shift, mass lesion, hemorrhage or acute infarction. No extraaxial fluid collections ar e seen. The pituitary gland and suprasellar cistern are normal in configuration. White Matter: No significant signal abnormalities are seen in the white matter. Posterior Fossa: The cerebellum and brainstem are intact. The 4th ventricle is midline. The cerebel lopontine angle is unremarkable. The cerebellar tonsils are normal in position. Diffusion Imaging: No focal areas of restricted diffusion are seen. No evidence of acute infarction . Extracranial: The visualized portions of the orbits and paranasal sinuses are unremarkable. Bilatera l mastoiditis CONCLUSION: 1. Symmetric atrophy. 2. Mastoiditis. 3. No acute intracranial findings. Electronically signed by: Gilmar Mclaughlin MD 02/28/2018 3:49 PM EDT
--- NOTE | 2018-02-28 16:12 | HHI.NPPN ---
Subjective History of Present Illness The patient is a 62 yo [place] male with PMHx of DM, CAD, CVA, BPH, HTN, Colon CA, Anemia, GERD, who was brought into this facility on 02/12/18 after brother found him down on the ground at his home for >18hrs. Unclear if he had lost consciousness or the mechanism of his fall as the patient is currently intubated and sedated. Has been diagnosed with MSSA sepsis, but source is not entirely clear. Has hardware in his right ankle but podiatry does not feel that this is the source. Underwent STEF this AM and cardiology is suspicious for mitral valve vegetation, however, formal report is pending. His admitting SCr was 1.32 and has deteriorated to 4.14 at time of consult. He is 10L to the positive and UOP is marginal. Nephrology has been consulted for management of acute renal failure. Appears preserved renal functions predating this admission, with baseline SCr 0.6-0.8 as per Oct 2017 admission. Review of Systems General General Remarks Patient intubated on ventilatory support. Objective Data Data Vital Signs Date Time Temp Pulse Resp B/P (MAP) Pulse Ox O2 Delivery O2 Flow Rate FiO2 02/28/18 12:00 97.8 98 18 153/69 (97) 98 02/28/18 08:00 98.2 94 18 155/72 (99) 97 02/28/18 07:41 Nasal Cannula 4.00 02/28/18 04:00 90 02/28/18 03:37 98.0 91 18 133/96 (108) 98 02/28/18 01:36 20 02/27/18 23:35 95 02/27/18 23:26 20 02/27/18 23:21 98.0 90 18 166/80 (108) 98 02/27/18 20:00 Nasal Cannula 4.00 02/27/18 19:50 98.1 104 18 156/79 (104) 99 02/27/18 19:45 97 -: 02/28/18 1015 02/28/18 0511 Tubes & Lines: Vas-Cath ([facility]) Physical Exam General Appearance: Comfortable, Obese Eyes Eye Exam: Sclera White Neck Neck Exam: Trachea Midline Pulmonary Resp Exam: Clear Bilaterally, Breath Sounds Equal, Decreased Bases Cardiology CV Exam: Regular, Normal Sinus Rhythm Gastrointestinal/Abdomen GI Exam: Soft, Non-Tender Integumentary Skin Exam: Clear, Warm Extremeties Extremities Exam: Moderate Edema (2 plus pitting edema ankles.), Pitting Edema (Generalized edema.) Neurologic Neuro Exam: Sedated Assessment/Plan Problem List: (1) Acute renal failure ICD Codes: N17.9 - Acute kidney failure, unspecified Status: Chronic Plan: Patient still dialysis dependent with significant azotemia. Patient will have hemodialysis today and subsequently have the Vas-Cath removed as requested by infectious disease. We will attempt to avoid replacement of the Vas-Cath over the weekend as requested by infectious disease also in the hope of aiding clearing of the bacteremia. Uncertain however if the line is contributing to this. Continue IV furosemide to try and promote urine output. No evidence of significant renal recovery at this time as discussed with his sisters by the bedside. Medications should be adjusted for the patient's renal decline. Avoid nephrotoxic medications such as iodinated contrast dyes and NSAIDs. Avoid gadolinium. (2) Sepsis ICD Codes: A41.9 - Sepsis, unspecified organism Status: Resolved Plan: Source? Pending STEF results Abx as per ID (3) Rhabdomyolysis ICD Codes: M62.82 - Rhabdomyolysis Status: Resolved Plan: Apparent given elevated CPK and urinary sediment. CPK trending down. Continue to monitor. (4) Adrenal nodule ICD Codes: E27.9 - Disorder of adrenal gland, unspecified Plan: Incidentally noted on CT scan. 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 Problem Qualifiers (1) Rhabdomyolysis: Qualified Codes: T79.6XXA - Traumatic ischemia of muscle, initial encounter Jeffy Brewer MD Feb 28, 2018 16:12
--- NOTE | 2018-02-28 17:32 | PD.CONS ---
History of Present Illness Service Neurology Consult Requested By Medical for stroke Primary Care Physician Non-Staff History of Present Illness 62-year-old male complicated recent medical history when she was in the intensive care unit respiratory failure and treated for sepsis bacteremia. Stent been found to have been being treated for mitral valve endocarditis. Seen by cardiology service. Patient will be confused since this a.m. right arm jerking gaze deviation. Onset of confusion unknown. Due to the history of seizure and endocarditis not IV TPA candidate. He had an MRI brain scan performed which did not show any acute stroke. Review of Systems ROS Limitations: As above and admission H&P Past Family Social History Allergies: Coded Allergies: No Known Allergies (Unverified , 10/21/17) Past Medical History Diabetes Hyperlipidemia Chronic pain syndrome bilateral lower extremity ulcers BPH Hypertension Colon cancer s/p partial colectomy prior NSTEMI severe 2-vessel CAD managed medically old RBBB prior GI bleed anemia secondary to GI bleeding Arthritis CHF, unknown type GERD Past Surgical History Cardiac catheterization 11/03 with no intervention partial colectomy skin grafts to right ankle left ankle surgery Family History No history of stroke Social History No tob, etoh, Review of Systems All other ROS: ROS reviewed as documented in chart Past Family Social History Allergies: Coded Allergies: No Known Allergies (Unverified , 10/21/17) Active Ordered Medications Current Medications Medications (Trade) Dose Ordered Sig/Ada Route Start Time Stop Time Status Last Admin (NS Flush) 2 ml UNSCH PRN IV FLUSH 02/12/18 21:45 02/27/18 09:47 (Protonix Inj) 40 mg DAILY IV PUSH 02/13/18 09:00 02/28/18 13:27 ([facility] [place] [facility]) 1 Q361D XX 02/13/18 00:00 (Chlorhexidine 2% Cloth) Taper DAILY@04 TOP 02/13/18 04:00 02/09/19 03:59 02/27/18 03:16 (Chlorhexidine 2% Cloth) 3 pack UNSCH PRN TOP 02/13/18 00:00 (Roxicodone) 5 mg Q4H PRN PO 02/13/18 09:00 02/28/18 15:53 (Dilaudid Pf Inj) 0.2 mg Q4H PRN IV PUSH 02/13/18 09:00 02/28/18 13:12 (Tylenol) 650 mg Q4H PRN PO 02/13/18 10:45 02/27/18 12:45 (Trandate Inj) 20 mg Q2H PRN IV PUSH 02/13/18 11:00 02/27/18 05:13 (Cepacol Extra Sia (Sugar Free)) 1 lozenge Q1H PRN BUCCAL 02/13/18 11:00 02/13/18 11:03 Propofol 100 ml @ 3.66 mls/hr TITRATE PRN IV 02/13/18 19:45 02/19/18 13:45 (Peridex 0.12% Liq) 15 ml BID@08,20 MT 02/14/18 08:00 02/26/18 08:00 Fentanyl Citrate 250 ml @ 5 mls/hr TITRATE PRN IV 02/13/18 21:15 02/19/18 09:08 Cefazolin Sodium/ Dextrose 50 ml @ 100 mls/hr Q12H IV 02/16/18 13:00 02/28/18 15:41 Sodium Chloride 1,000 ml @ 0 mls/hr Q0M PRN OTHER 02/17/18 11:29 02/18/18 13:55 (Heparin Inj) 8,000 units UNSCH PRN IV FLUSH 02/17/18 11:30 Sodium Chloride 1,000 ml @ 200 mls/hr Q5H PRN IV 02/17/18 11:29 Sodium Chloride 1,000 ml @ 0 mls/hr Q0M PRN OTHER 02/17/18 11:29 Albumin Human 100 ml @ 60 mls/hr UNSCH PRN IV 02/17/18 11:30 02/20/18 09:48 (NS Flush) 5 ml UNSCH PRN IV FLUSH 02/17/18 11:30 (Heparin Inj) UNSCH PRN .XX 02/17/18 11:30 02/22/18 10:29 (Gentamicin Inj) 20 mg UNSCH PRN OTHER 02/17/18 11:30 02/22/18 10:30 (Zofran Odt) 4 mg UNSCH PRN PO 02/17/18 12:00 (Tylenol) 650 mg UNSCH PRN PO 02/17/18 11:30 (Benadryl) 25 mg UNSCH PRN PO 02/17/18 11:30 (Nitrostat Sl) 0.4 mg UNSCH PRN SL 02/17/18 11:30 (Catapres) 0.1 mg UNSCH PRN PO 02/17/18 11:30 02/24/18 03:50 (Gelfoam 12 Mm/7 Mm Top) 1 foam UNSCH PRN TOP 02/17/18 11:30 (NS Flush) UNSCH PRN IV FLUSH 02/17/18 13:30 (Heparin Inj) UNSCH PRN IV FLUSH 02/17/18 13:30 (Senna Liq) 8.8 mg DAILY PO 02/17/18 15:30 02/28/18 10:00 (Colace Liq) 100 mg Q12HR PO 02/17/18 21:00 02/28/18 10:00 (Lopressor) 25 mg Q12HR PO 02/19/18 09:00 02/27/18 21:34 Daptomycin 800 mg/ Sodium Chloride 100 ml @ 200 mls/hr Q48H IV 02/19/18 20:00 02/27/18 21:33 Dexmedetomidine HCl 1000 mcg/ Sodium Chloride 250 ml @ 6.6 mls/hr TITRATE PRN IV 02/19/18 23:30 02/26/18 09:43 (Albuterol Neb) 2.5 mg Q2HR NEB PRN NEB 02/20/18 22:00 (D50w (Vial) Inj) 50 ml UNSCH PRN IV PUSH 02/21/18 10:00 (Glucagon Inj) 1 mg UNSCH PRN OTHER 02/21/18 10:00 (NovoLIN R SUPPLEMENTAL SCALE) 1 Q4H SQ 02/21/18 10:00 02/28/18 01:12 (Lacrilube Opht Oint) 1 applic Q12HR EACH EYE 02/22/18 21:00 02/27/18 21:33 (Apresoline) 75 mg Q8H PO 02/22/18 18:00 02/28/18 01:10 (Lasix Inj) 80 mg BID IV PUSH 02/23/18 21:00 02/28/18 13:15 (Reglan Inj) 5 mg Q8H IV 02/23/18 21:00 02/28/18 13:54 (Levemir Inj) 20 units Q12HR SQ 02/24/18 09:00 02/27/18 21:35 (Heparin Inj) 5,000 units Q12HR SQ 02/24/18 09:00 02/28/18 13:32 Exam I&O / VS Vital Signs Date Time Temp Pulse Resp B/P (MAP) Pulse Ox O2 Delivery O2 Flow Rate FiO2 02/28/18 12:00 97.8 98 18 153/69 (97) 98 02/28/18 08:00 98.2 94 18 155/72 (99) 97 02/28/18 07:41 Nasal Cannula 4.00 02/28/18 04:00 90 02/28/18 03:37 98.0 91 18 133/96 (108) 98 02/28/18 01:36 20 02/27/18 23:35 95 02/27/18 23:26 20 02/27/18 23:21 98.0 90 18 166/80 (108) 98 02/27/18 20:00 Nasal Cannula 4.00 02/27/18 19:50 98.1 104 18 156/79 (104) 99 02/27/18 19:45 97 Review/Management Diagnosis/Plan: (1) Acute encephalopathy ICD Codes: G93.40 - Encephalopathy, unspecified Status: Acute Plan: Metabolic encephalopathy Possible focal seizure this a.m. Recommendations IV Celebrex Follow-up EEG results Obtain MRI of the brain and carotids to exclude any arteritis or mycotic aneurysm secondary to valvular endocarditis Seizure fall precautions Follow exam No driving (2) Endocarditis of mitral valve ICD Codes: I05.8 - Other rheumatic mitral valve diseases Status: Acute Plan: Seen by cardiology Infectious disease (3) Cardiovascular disease ICD Codes: I25.10 - Atherosclerotic heart disease of yocha dehe coronary artery without angina pectoris Status: Acute Plan: Seen by cardiology (4) Acute renal failure ICD Codes: N17.9 - Acute kidney failure, unspecified Status: Chronic Plan: On hemodialysis Yogi Landis MD Feb 28, 2018 17:32
[2018-02-28] MEDS ORDERED: FOSPHENYTOIN INJ 1,000 MGPE in SODIUM CHLORIDE 0.9% INJ 50 ML IV ONE (18:00)
[2018-02-28] MEDS: SODIUM CHLOR 0.9% 1000 ML INJ 1,000 ML OTHER PRN (18:50)
[2018-02-28] MEDS: ALBUMIN 25% INJ 100 ML IV PRN (18:50)
--- NOTE | 2018-02-28 22:29 | RADRPT ---
EXAM DATE: 02/28/2018 10:04 PM EDT AGE/SEX: 62 years / Male INDICATIONS: . Arteritis CLINICAL DATA: This is the patient's initial encounter. Patient reports that signs and symptoms have been present for 1 day and indicates a pain score of Nonresponsive. MEDICAL/SURGICAL HISTORY: Carcinoma, colon. Hypertension. Cardiovascular disease. DM, HLD, a nd CVA. Cholecystectomy. Cardiac cath, Bilateral foot sx. COMPARISON: No prior exams available for comparison. TECHNIQUE: 3D [id number] MRA was performed. Source images, multiplanar STS MIP, and 3D volum e MIP reconstructions were reviewed. FINDINGS: There is excellent visualization of the major intracranial arteries out to the second-order branch ve ssels. There is no evidence for aneurysm, vessel truncation or stenosis, and no evidence for vascula r malformation. CONCLUSION: 1. Examination within normal limits for age. Electronically signed by: Clinton Wilkinson MD 02/28/2018 10:28 PM EDT
--- NOTE | 2018-02-28 22:55 | RADRPT ---
EXAM DATE: 02/28/2018 10:49 PM EDT AGE/SEX: 62 years / Male INDICATIONS: . Arteritis CLINICAL DATA: This is the patient's initial encounter. Patient reports that signs and symptoms have been present for 1 day and indicates a pain score of Nonresponsive. MEDICAL/SURGICAL HISTORY: Carcinoma, colon. Diabetes mellitus type II. Cardiovascular disease . CHF, CVA. . Cardiac cath, Bilateral foot sx. COMPARISON: No prior exams available for comparison. TECHNIQUE: 3D time-of- flight MRA of the extracranial circulation was performed using a neuroAllozynecul ar coil. Post processing was performed including rotating sub-volume maximum intensity projections o f each carotid artery, rotating full-volume maximum intensity projections of both carotid arteries, s agittal and coronal sliding thin-slab reformations of each carotid artery, and left oblique sliding t hin-slab reformation through the aortic arch to include the origin of the arch branch vessels. FINDINGS: Exam degraded by motion artifact. [place]-white vessel origins appear to be patent. No stenosis identifi ed in the right common carotid, internal carotid or external carotid artery. There is a smooth mild to moderate stenosis of the proximal left internal carotid artery. Differentia l diagnosis includes arteritis if patient has history of such. The left common carotid artery and ext ernal carotid artery are patent. Both vertebral arteries are patent in the neck. CONCLUSION: 1. Smooth mild to moderate stenosis proximal left internal carotid artery. Differential diagnosis in cludes atherosclerotic plaque formation and arthritis. Percent stenosis is calculated using the diameter of the stenotic region over the diameter of the nor mal distal internal carotid artery Electronically signed by: Clinton Wilkinson MD 02/28/2018 10:54 PM EDT
[2018-03-01] VITALS (8 sets, daily range): BP systolic 133–153; BP diastolic 60–71; PULSE 86–100; RESP 17–18; TEMP 97.3–98.3; O2SAT 96–98
[2018-03-01] MEDS: hydrALAZINE HCL 25 MG TAB PO SCH ×3 (02:10→17:39)
[2018-03-01] MEDS: INSULIN NovoLIN REGULAR SUPPLEMENTAL SCALE SQ SCH ×6 (02:24→21:08)
[2018-03-01] MEDS: CHLORHEXIDINE GLUCONATE 2 % 1 PACK (2 CLOTHS) TOP SCH (04:00)
[2018-03-01] MEDS: FOSPHENYTOIN SODIUM 100 MG PE/2 ML VIAL IV SCH ×2 (04:53→17:38)
[2018-03-01] MEDS: METOCLOPRAMIDE HCL 10 MG/2 ML VIAL IV SCH ×2 (04:53→12:03)
[2018-03-01] MEDS: SENNOSIDES SYRUP 8.8 MG/5 ML CUP PO SCH (08:21)
[2018-03-01] MEDS: FUROSEMIDE 20 MG/2 ML VIAL IV PUSH SCH ×2 (08:22→21:09)
[2018-03-01] MEDS: DOCUSATE SODIUM 100 MG/10 ML UDC PO SCH ×2 (08:24→21:08)
[2018-03-01] MEDS: ARTIFICIAL TEARS OPTH OINT 3.5 APPLIC/3.5 GM TUBO EACH EYE SCH ×2 (08:28→21:10)
[2018-03-01] MEDS: PANTOPRAZOLE SODIUM 40 MG VIAL IV PUSH SCH (08:28)
[2018-03-01] MEDS: HEPARIN SODIUM - SQ 10,000 UNITS/ML VIAL SQ SCH ×2 (08:29→21:09)
[2018-03-01] MEDS: CHLORHEXIDINE 0.12% (ORAL KIT) 15 ML CUP MT SCH ×2 (08:29→20:00)
[2018-03-01] MEDS: METOPROLOL TARTRATE 25 MG TAB PO SCH ×2 (08:29→21:13)
[2018-03-01] MEDS: INSULIN DETEMIR 100 UNITS/ML VIAL SQ SCH ×2 (08:33→21:08)
--- NOTE | 2018-03-01 09:54 | HHI.PR ---
Review/Management Diagnosis/Plan: (1) Acute encephalopathy ICD Codes: G93.40 - Encephalopathy, unspecified Status: Acute Plan: Metabolic encephalopathy Possible focal seizure MRI brain no aneurysm or vaso-occlusive disease. 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 - Other rheumatic mitral valve diseases Status: Acute Plan: Seen by cardiology Infectious disease (3) Cardiovascular disease ICD Codes: I25.10 - Atherosclerotic heart disease of [place] coronary artery without angina pectoris Status: Acute Plan: Seen by cardiology (4) Acute renal failure ICD Codes: N17.9 - Acute kidney failure, unspecified Status: Chronic Plan: On hemodialysis Subjective Subjective Comments No acute events reported Active Medications Current Medications Medications (Trade) Dose Ordered Sig/Ada Route Start Time Stop Time Status Last Admin (NS Flush) 2 ml UNSCH PRN IV FLUSH 02/12/18 21:45 02/27/18 09:47 (Protonix Inj) 40 mg DAILY IV PUSH 02/13/18 09:00 03/01/18 08:28 [place] [place] [facility] [place] 1 Q361D XX 02/13/18 00:00 (Chlorhexidine 2% Cloth) Taper DAILY@04 TOP 02/13/18 04:00 02/09/19 03:59 02/27/18 03:16 (Chlorhexidine 2% Cloth) 3 pack UNSCH PRN TOP 02/13/18 00:00 (Roxicodone) 5 mg Q4H PRN PO 02/13/18 09:00 02/28/18 23:05 (Dilaudid Pf Inj) 0.2 mg Q4H PRN IV PUSH 02/13/18 09:00 02/28/18 13:12 (Tylenol) 650 mg Q4H PRN PO 02/13/18 10:45 02/27/18 12:45 (Trandate Inj) 20 mg Q2H PRN IV PUSH 02/13/18 11:00 02/27/18 05:13 (Cepacol Extra Sia (Sugar Free)) 1 lozenge Q1H PRN BUCCAL 02/13/18 11:00 02/13/18 11:03 Propofol 100 ml @ 3.66 mls/hr TITRATE PRN IV 02/13/18 19:45 02/19/18 13:45 (Peridex 0.12% Liq) 15 ml BID@08,20 MT 02/14/18 08:00 03/01/18 08:29 Fentanyl Citrate 250 ml @ 5 mls/hr TITRATE PRN IV 02/13/18 21:15 02/19/18 09:08 Cefazolin Sodium/ Dextrose 50 ml @ 100 mls/hr Q12H IV 02/16/18 13:00 02/28/18 23:58 Sodium Chloride 1,000 ml @ 0 mls/hr Q0M PRN OTHER 02/17/18 11:29 02/28/18 18:50 (Heparin Inj) 8,000 units UNSCH PRN IV FLUSH 02/17/18 11:30 Sodium Chloride 1,000 ml @ 200 mls/hr Q5H PRN IV 02/17/18 11:29 Sodium Chloride 1,000 ml @ 0 mls/hr Q0M PRN OTHER 02/17/18 11:29 Albumin Human 100 ml @ 60 mls/hr UNSCH PRN IV 02/17/18 11:30 02/28/18 18:50 (NS Flush) 5 ml UNSCH PRN IV FLUSH 02/17/18 11:30 (Heparin Inj) UNSCH PRN .XX 02/17/18 11:30 02/22/18 10:29 (Gentamicin Inj) 20 mg UNSCH PRN OTHER 02/17/18 11:30 02/22/18 10:30 (Zofran Odt) 4 mg UNSCH PRN PO 02/17/18 12:00 (Tylenol) 650 mg UNSCH PRN PO 02/17/18 11:30 (Benadryl) 25 mg UNSCH PRN PO 02/17/18 11:30 (Nitrostat Sl) 0.4 mg UNSCH PRN SL 02/17/18 11:30 (Catapres) 0.1 mg UNSCH PRN PO 02/17/18 11:30 02/24/18 03:50 (Gelfoam 12 Mm/7 Mm Top) 1 foam UNSCH PRN TOP 02/17/18 11:30 (NS Flush) UNSCH PRN IV FLUSH 02/17/18 13:30 (Heparin Inj) UNSCH PRN IV FLUSH 02/17/18 13:30 (Senna Liq) 8.8 mg DAILY PO 02/17/18 15:30 03/01/18 08:21 (Colace Liq) 100 mg Q12HR PO 02/17/18 21:00 03/01/18 08:24 (Lopressor) 25 mg Q12HR PO 02/19/18 09:00 03/01/18 08:29 Daptomycin 800 mg/ Sodium Chloride 100 ml @ 200 mls/hr Q48H IV 02/19/18 20:00 02/27/18 21:33 Dexmedetomidine HCl 1000 mcg/ Sodium Chloride 250 ml @ 6.6 mls/hr TITRATE PRN IV 02/19/18 23:30 02/26/18 09:43 (Albuterol Neb) 2.5 mg Q2HR NEB PRN NEB 02/20/18 22:00 (D50w (Vial) Inj) 50 ml UNSCH PRN IV PUSH 02/21/18 10:00 (Glucagon Inj) 1 mg UNSCH PRN OTHER 02/21/18 10:00 (NovoLIN R SUPPLEMENTAL SCALE) 1 Q4H SQ 02/21/18 10:00 03/01/18 05:04 (Lacrilube Opht Oint) 1 applic Q12HR EACH EYE 02/22/18 21:00 03/01/18 08:28 (Apresoline) 75 mg Q8H PO 02/22/18 18:00 03/01/18 02:10 (Lasix Inj) 80 mg BID IV PUSH 02/23/18 21:00 03/01/18 08:22 (Reglan Inj) 5 mg Q8H IV 02/23/18 21:00 03/01/18 04:53 (Levemir Inj) 20 units Q12HR SQ 02/24/18 09:00 03/01/18 08:33 (Heparin Inj) 5,000 units Q12HR SQ 02/24/18 09:00 03/01/18 08:29 (Cerebyx Inj) 200 mgpe Q12H IV 03/01/18 06:00 03/01/18 04:53 Allergies Allergies Coded Allergies No Known Allergies (Unverified10/21/17) Review of Systems All other ROS: ROS reviewed as documented in chart Exam I&O / VS Vital Signs Date Time Temp Pulse Resp B/P (MAP) Pulse Ox O2 Delivery O2 Flow Rate FiO2 03/01/18 08:00 98.0 93 18 153/71 (98) 98 03/01/18 04:00 100 03/01/18 03:32 98.3 100 18 143/65 (91) 96 03/01/18 00:00 99 02/28/18 23:43 20 02/28/18 22:50 97.6 95 18 161/74 (103) 96 02/28/18 22:20 Nasal Cannula 4.00 02/28/18 22:20 102 02/28/18 19:47 99 02/28/18 17:24 98 Nasal Cannula 4.00 02/28/18 12:00 97.8 98 18 153/69 (97) 98 Exam Comments Awake alert disoriented and attentive was able to tell me his name on one occasion very inconsistently able to follow 8 intact blink to threat OU 3-2 mm no facial asymmetry no involuntary movements no gaze deviation generalized weakness with paraparesis however able to left upper extremities to gravity plantarflex her no clonus elicited Objective Micro and Labs Laboratory Tests Test 02/28/18 10:15 White Blood Count 11.6 Red Blood Count 4.25 Hemoglobin 11.7 Bedside Hemoglobin 11.9 Hematocrit 35.4 Bedside Hematocrit 35.0 Mean Corpuscular Volume 83.4 Mean Corpuscular Hemoglobin 27.6 Mean Corpuscular Hemoglobin Concent 33.0 Red Cell Distribution Width 15.8 Platelet Count 388 Mean Platelet Volume 9.3 Neutrophils (%) (Auto) 72.1 Lymphocytes (%) (Auto) 13.5 Monocytes (%) (Auto) 8.6 Eosinophils (%) (Auto) 5.0 Basophils (%) (Auto) 0.8 Neutrophils # (Auto) 8.3 Lymphocytes # (Auto) 1.6 Monocytes # (Auto) 1.0 Eosinophils # (Auto) 0.6 Basophils # (Auto) 0.1 CBC Comment DIFF FINAL Differential Comment Prothrombin Time 15.1 Prothromb Time International Ratio 1.5 Activated Partial Thromboplast Time 30.6 Fibrinogen 530 Bedside Sodium 137 Bedside Potassium 4.1 Bedside Chloride 97 Bedside Blood Urea Nitrogen 118 Bedside Creatinine 8.1 Bedside Glucose 173 Total Creatine Kinase 448 Creatine Kinase MB 9.0 Creatine Kinase MB % 2.0 Troponin I 0.10 Date/Time Source Procedure Growth Status 02/22/18 20:58 Blood Peripheral Aerobic Blood Culture - Final Staphylococcus Epidermidis Complete 02/22/18 20:58 Blood Peripheral Anaerobic Blood Culture - Final NO GROWTH IN 5 DAYS Complete 02/19/18 08:29 Sputum Endotracheal Gram Stain - Final Complete 02/19/18 08:29 Sputum Endotracheal Sputum Culture - Final RARE GROWTH NORMAL RESPIRATORY DREW Complete 02/19/18 08:30 Urine Catheterized Urine Urine Culture - Final NO GROWTH IN 48 HOURS. Complete 02/28/18 20:15 Catheter Tip Vas Cath Wound Culture Pending Received Yogi Landis MD Mar 01, 2018 09:54
[2018-03-01] MEDS: ceFAZolin 2 GM/DEX PREMIX 50 ML IV SCH (12:03)
--- NOTE | 2018-03-01 13:10 | HHI.PR ---
Subjective Remarks seen with family at bedside history of chronic back pain from previous injuries- but does not take any pain meds because does not want to be addicted to it now complaining of severe back pain- "like a knife" awake and alert, responded appropriately Objective Vitals Vital Signs Date Time Temp Pulse Resp B/P (MAP) Pulse Ox O2 Delivery O2 Flow Rate FiO2 03/01/18 08:00 98.0 93 18 153/71 (98) 98 03/01/18 08:00 Nasal Cannula 4.00 30 03/01/18 08:00 94 03/01/18 04:00 100 03/01/18 03:32 98.3 100 18 143/65 (91) 96 03/01/18 00:00 99 02/28/18 23:43 20 02/28/18 22:50 97.6 95 18 161/74 (103) 96 02/28/18 22:20 Nasal Cannula 4.00 02/28/18 22:20 102 02/28/18 19:47 99 02/28/18 17:24 98 Nasal Cannula 4.00 I/O 02/28/18 02/28/18 02/28/18 03/01/18 03/01/18 03/01/18 07:00 15:00 23:00 07:00 15:00 23:00 Intake Total 150 ml 820 ml Output Total 350 ml 4000 ml 400 ml Balance -200 ml -4000 ml 420 ml Intake Oral 100 ml 720 ml IV Total 50 ml 100 ml Output Urine Total 350 ml 400 ml Hemodialysis 4000 ml # Bowel Movements 0 0 Result Diagram: 02/28/18 1015 02/28/18 0511 Imaging Last Impressions Neck Magnetic Resonance Angiography 02/28/18 0000 Signed Impressions: CONCLUSION: 1. Smooth mild to moderate stenosis proximal left internal carotid artery. Dif ferential diagnosis includes atherosclerotic plaque formation and arthritis. __ Percent stenosis is calculated using the diameter of the stenotic region over t he diameter of the normal distal internal carotid artery __ Head Magnetic Resonance Angiography 02/28/18 Signed Impressions: CONCLUSION: 1. Examination within normal limits for age. Head CT 02/28/18 Signed Impressions: CONCLUSION: 1. Central and cortical atrophy with periventricular ischemic changes, negativ e for acute process. Brain MRI 02/28/18 Signed Impressions: CONCLUSION: 1. Symmetric atrophy. 2. Mastoiditis. 3. No acute intracranial findings. Chest X-Ray 02/26/18599 Signed Impressions: CONCLUSION: No significant interval change with persistent mild patchy left lung base opaci ty. Abdomen X-Ray 02/25/18 06 Signed Impressions: CONCLUSION: Nasogastric tube in place. Gas-filled distention of the stomach no longer seen. Nonspecific bowel gas pattern. Abdomen/Pelvis CT 02/22/18 Signed Impressions: CONCLUSION: 1. Small bilateral pleural effusions with dependent atelectasis and consolidat ion in both lungs. 2. Mild ileus. Liver Ultrasound 02/17/18 Signed Impressions: CONCLUSION: 1. Hepatomegaly with coarsened liver echotexture. No focal liver lesion is heath ntified. 2. Mild splenomegaly. Catheter Placement X-Ray 02/17/18 Signed Impressions: CONCLUSION: 1. Uncomplicated line placement as above. Foot MRI 02/14/18 Signed Impressions: CONCLUSION: 1. Diffuse subcutaneous edema of the foot with mild enhancement along the dors al aspect of the foot. This could represent cellulitis. No abscess is identifie d and there are no findings to indicate osteomyelitis. 2. There is some degree of osseous fusion at the tibiotalar joint and there is severe degenerative change at the subtalar joint and talonavicular joint. 3. Old healed fracture of the fifth metatarsal. Foot X-Ray 02/13/18 Signed Impressions: CONCLUSION: 1. There is a transverse fracture through the mid fifth metatarsal. Adjacent p eriosteal reaction is present suggesting that it is subacute or chronic. 2. There has been prior arthrodesis of the subtalar joint and tibiotalar joint s with osseous fusion. Hypertrophic osteophytes are present at the talonavicula r joint. Cervical Spine CT 02/12/18 0000 Signed Impressions: CONCLUSION: Unremarkable study except for slight degenerative spondylosis. CT Angiography 02/12/18 0000 Signed Impressions: CONCLUSION: 1. Possible nodules within the thyroid gland mainly on the right side. 2. Slight fatty liver. 3. No definite pulmonary embolus. Objective Remarks awake and alert, oriented to person and place, responded verbally- speech soft "hurt all over" speech dysarthric pupils equal- made more direct eye contact + gag reflex no facial asymmetry no rales regular rhtyhm abdomen soft , PEG in place extremities - no edema moves all extremities eqaully- generalizxed weakness A/P Assessment and Plan 62 years old Acute SZ episode r/o acute neurologic embolic event - currently appears post ictal - Head CT/MRI negative - neuro check q 4 - Neurology ff Dr. Rutherford - started on IV Cerebryx Severe Sepsis present on admission Mitral valve endocarditis, MSSA MSSA high grade bacteremia. Bilateral LE cellulitis. Ho Rt foot hardware infection MRI w/o osteomyelitis in either feet d/w DR Rubio ff - will d/w her acute event - ? need for LP- not now will order for MRI of the back acute resp failure on vent.- resolved off vent Elevated LFTs- trending down acute renal failure oliguric- secondary to rhabdomyolysis and sepsis, meds oxacillin, vanco etc. - on HD - Renal ff encephalopathy - will get neuropsychology service- Dr. Elizabeth - Cognitive therapy consult CAD s/p CABG History of chronic pain- on further discussion with family- no history of narcotic reaction but refused to be on it - scared of being addicted - prn pain meds - order for MRI of the back- d/w with Romeo Comer MD Mar 01, 2018 13:10
--- NOTE | 2018-03-01 13:10 | HHI.NPPN ---
Subjective History of Present Illness The patient is a 62 yo [place] male with PMHx of DM, CAD, CVA, BPH, HTN, Colon CA, Anemia, GERD, who was brought into this facility on 02/12/18 after brother found him down on the ground at his home for >18hrs. Unclear if he had lost consciousness or the mechanism of his fall as the patient is currently intubated and sedated. Has been diagnosed with MSSA sepsis, but source is not entirely clear. Has hardware in his right ankle but podiatry does not feel that this is the source. Underwent STEF this AM and cardiology is suspicious for mitral valve vegetation, however, formal report is pending. His admitting SCr was 1.32 and has deteriorated to 4.14 at time of consult. He is 10L to the positive and UOP is marginal. Nephrology has been consulted for management of acute renal failure. Appears preserved renal functions predating this admission, with baseline SCr 0.6-0.8 as per Oct 2017 admission. Interval History Patient lying in bed not in respiratory distress. This is by bedside. Patient appears to be slightly lethargic responding to simple questions and commands. Review of Systems General General Remarks Patient intubated on ventilatory support. Objective Data Data Vital Signs Date Time Temp Pulse Resp B/P (MAP) Pulse Ox O2 Delivery O2 Flow Rate FiO2 03/01/18 12:00 89 03/01/18 08:00 98.0 93 18 153/71 (98) 98 03/01/18 08:00 Nasal Cannula 4.00 30 03/01/18 08:00 94 03/01/18 04:00 100 03/01/18 03:32 98.3 100 18 143/65 (91) 96 03/01/18 00:00 99 02/28/18 23:43 20 02/28/18 22:50 97.6 95 18 161/74 (103) 96 02/28/18 22:20 Nasal Cannula 4.00 02/28/18 22:20 102 02/28/18 19:47 99 02/28/18 17:24 98 Nasal Cannula 4.00 -: 02/28/18 1015 02/28/18 0511 Microbiology 02/28/18 Wound Culture, Received Pending Tubes & Lines: Vas-Cath (RI) Physical Exam General Appearance: Comfortable, Obese Eyes Eye Exam: Sclera White Neck Neck Exam: Trachea Midline Pulmonary Resp Exam: Clear Bilaterally, Breath Sounds Equal, Decreased Bases Cardiology CV Exam: Regular, Normal Sinus Rhythm Gastrointestinal/Abdomen GI Exam: Soft, Non-Tender Integumentary Skin Exam: Clear, Warm Extremeties Extremities Exam: Trace Edema (Of the lower legs and ankles.), Pitting Edema ( Generalized edema.) Assessment/Plan Problem List: (1) Acute renal failure ICD Codes: N17.9 - Acute kidney failure, unspecified Status: Chronic Plan: Patient still dialysis dependent with significant azotemia. Vas-Cath removed yesterday at request of infectious disease. We will try to avoid replacing Vas-Cath over the weekend if possible. Hydro case scenario would be improvement in renal function without need continue dialysis but this remains to be determined as discussed with his sisters. Continue IV furosemide to try and promote urine output. No evidence of significant renal recovery at this time as discussed with his sisters by the bedside. Medications should be adjusted for the patient's renal decline. Avoid nephrotoxic medications such as iodinated contrast dyes and NSAIDs. Avoid gadolinium. (2) Sepsis ICD Codes: A41.9 - Sepsis, unspecified organism Status: Acute Plan: Source? Pending STEF results Abx as per ID (3) Rhabdomyolysis ICD Codes: M62.82 - Rhabdomyolysis Status: Acute Plan: Apparent given elevated CPK and urinary sediment. CPK trending down. Continue to monitor. (4) Adrenal nodule ICD Codes: E27.9 - Disorder of adrenal gland, unspecified Plan: Incidentally noted on CT scan. 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 Problem Qualifiers (1) Rhabdomyolysis: Qualified Codes: T79.6XXA - Traumatic ischemia of muscle, initial encounter Jeffy Brewer MD Mar 01, 2018 13:10
[2018-03-01] MEDS ORDERED: CHLOROTHIAZIDE SOD 500 MG VIAL IV ONE (13:15)
--- NOTE | 2018-03-01 13:51 | HHI.IDPN ---
Subjective Subjective Remarks co "paiin all over" + back pain no fever off vent On NC O2 remains on Hemodialysis. Last blood cultures again with coag neg staph 2 He is very confused, does not talk or follows commands that started yday, brain MRI done and is negative Also c/o back pain Antibiotics dapto cefazoline Lines PIVs look ok Past Medical History Past Medical History Diabetes Hyperlipidemia Chronic pain syndrome bilateral lower extremity ulcers BPH Hypertension Colon cancer s/p partial colectomy prior NSTEMI severe 2-vessel CAD managed medically old RBBB prior GI bleed anemia secondary to GI bleeding Arthritis CHF, unknown type GERD Past Surgical History partial colectomy skin grafts to right ankle left ankle surgery CABG Allergies: Coded Allergies: No Known Allergies (Unverified , 10/21/17) Objective . Vital Signs Date Time Temp Pulse Resp B/P (MAP) Pulse Ox O2 Delivery O2 Flow Rate FiO2 03/01/18 12:00 89 03/01/18 08:00 98.0 93 18 153/71 (98) 98 03/01/18 08:00 Nasal Cannula 4.00 30 03/01/18 08:00 94 03/01/18 04:00 100 03/01/18 03:32 98.3 100 18 143/65 (91) 96 03/01/18 00:00 99 02/28/18 23:43 20 02/28/18 22:50 97.6 95 18 161/74 (103) 96 02/28/18 22:20 Nasal Cannula 4.00 02/28/18 22:20 102 02/28/18 19:47 99 02/28/18 17:24 98 Nasal Cannula 4.00 . Laboratory Tests Test 02/28/18 05:11 02/28/18 10:15 White Blood Count 11.4 TH/MM3 11.6 TH/MM3 Red Blood Count 4.12 MIL/MM3 4.25 MIL/MM3 Hemoglobin 11.1 GM/DL 11.7 GM/DL Hematocrit 34.2 % 35.4 % Mean Corpuscular Volume 83.1 FL 83.4 FL Mean Corpuscular Hemoglobin 27.0 PG 27.6 PG Mean Corpuscular Hemoglobin Concent 32.5 % 33.0 % Red Cell Distribution Width 15.7 % 15.8 % Platelet Count 324 TH/MM3 388 TH/MM3 Mean Platelet Volume 10.1 FL 9.3 FL Neutrophils (%) (Auto) 69.2 % 72.1 % Lymphocytes (%) (Auto) 13.4 % 13.5 % Monocytes (%) (Auto) 11.9 % 8.6 % Eosinophils (%) (Auto) 4.5 % 5.0 % Basophils (%) (Auto) 1.0 % 0.8 % Neutrophils # (Auto) 7.9 TH/MM3 8.3 TH/MM3 Lymphocytes # (Auto) 1.5 TH/MM3 1.6 TH/MM3 Monocytes # (Auto) 1.4 TH/MM3 1.0 TH/MM3 Eosinophils # (Auto) 0.5 TH/MM3 0.6 TH/MM3 Basophils # (Auto) 0.1 TH/MM3 0.1 TH/MM3 CBC Comment DIFF FINAL DIFF FINAL Differential Comment Hematology Comments Bedside Hemoglobin 11.9 G/DL Bedside Hematocrit 35.0 % Laboratory Tests Test 02/28/18 05:11 02/28/18 10:15 Blood Urea Nitrogen 115 MG/DL Creatinine 7.26 MG/DL Random Glucose 130 MG/DL Total Protein 7.2 GM/DL Albumin 2.6 GM/DL Calcium Level 8.1 MG/DL Phosphorus Level 9.3 MG/DL Magnesium Level 2.7 MG/DL Alkaline Phosphatase 86 U/L Aspartate Amino Transf (AST/SGOT) 29 U/L Alanine Aminotransferase (ALT/SGPT) 7 U/L Total Bilirubin 0.4 MG/DL Sodium Level 136 MEQ/L Potassium Level 3.6 MEQ/L Chloride Level 94 MEQ/L Carbon Dioxide Level 21.5 MEQ/L Anion Gap 21 MEQ/L Estimat Glomerular Filtration Rate 8 ML/MIN Bedside Sodium 137 MMOL/L Bedside Potassium 4.1 MMOL/L Bedside Chloride 97 MMOL/L Bedside Blood Urea Nitrogen 118 MG/DL Bedside Creatinine 8.1 MG/DL Bedside Glucose 173 MG/DL Total Creatine Kinase 448 U/L Creatine Kinase MB 9.0 NG/ML Creatine Kinase MB % 2.0 % Troponin I 0.10 NG/ML Microbiology Date/Time Source Procedure Growth Status 02/28/18 20:15 Catheter Tip Vas Cath Wound Culture Pending Received Imaging Last Impressions Neck Magnetic Resonance Angiography 02/28/18 0000 Signed Impressions: CONCLUSION: 1. Smooth mild to moderate stenosis proximal left internal carotid artery. Dif ferential diagnosis includes atherosclerotic plaque formation and arthritis. __ Percent stenosis is calculated using the diameter of the stenotic region over t he diameter of the normal distal internal carotid artery __ Head Magnetic Resonance Angiography 02/28/18 Signed Impressions: CONCLUSION: 1. Examination within normal limits for age. Head CT 02/28/18 Signed Impressions: CONCLUSION: 1. Central and cortical atrophy with periventricular ischemic changes, negativ e for acute process. Brain MRI 02/28/18 Signed Impressions: CONCLUSION: 1. Symmetric atrophy. 2. Mastoiditis. 3. No acute intracranial findings. Chest X-Ray 02/26/18 06 Signed Impressions: CONCLUSION: No significant interval change with persistent mild patchy left lung base opaci ty. Abdomen X-Ray 02/25/18 06 Signed Impressions: CONCLUSION: Nasogastric tube in place. Gas-filled distention of the stomach no longer seen. Nonspecific bowel gas pattern. Abdomen/Pelvis CT 02/22/18 Signed Impressions: CONCLUSION: 1. Small bilateral pleural effusions with dependent atelectasis and consolidat ion in both lungs. 2. Mild ileus. Liver Ultrasound 02/17/18 Signed Impressions: CONCLUSION: 1. Hepatomegaly with coarsened liver echotexture. No focal liver lesion is heath ntified. 2. Mild splenomegaly. Catheter Placement X-Ray 02/17/18 Signed Impressions: CONCLUSION: 1. Uncomplicated line placement as above. Foot MRI 02/14/18 Signed Impressions: CONCLUSION: 1. Diffuse subcutaneous edema of the foot with mild enhancement along the dors al aspect of the foot. This could represent cellulitis. No abscess is identifie d and there are no findings to indicate osteomyelitis. 2. There is some degree of osseous fusion at the tibiotalar joint and there is severe degenerative change at the subtalar joint and talonavicular joint. 3. Old healed fracture of the fifth metatarsal. Foot X-Ray 02/13/18 Signed Impressions: CONCLUSION: 1. There is a transverse fracture through the mid fifth metatarsal. Adjacent p eriosteal reaction is present suggesting that it is subacute or chronic. 2. There has been prior arthrodesis of the subtalar joint and tibiotalar joint s with osseous fusion. Hypertrophic osteophytes are present at the talonavicula r joint. Cervical Spine CT 02/12/18 Signed Impressions: CONCLUSION: Unremarkable study except for slight degenerative spondylosis. CT Angiography 02/12/18 Signed Impressions: CONCLUSION: 1. Possible nodules within the thyroid gland mainly on the right side. 2. Slight fatty liver. 3. No definite pulmonary embolus. Physical Exam CONSTITUTIONAL/GENERAL: This is a morbidly obese patient, intubated TUBES/LINES/DRAINS: SKIN: No jaundice, rashes, or lesions. Skin temperature appropriate. HEAD: Atraumatic. Normocephalic. EYES: Pupils equal and round and reactive. No scleral icterus. No injection or drainage. Fundi not examined. RESPIRATORY/CHEST: Symmetric, unlabored respirations. Clear to auscultation. Breath sounds equal bilaterally. No wheezes, rales, or rhonchi. GASTROINTESTINAL: Abdomen soft and less distended GENITOURINARY: Without palpable bladder distension. Charlton catheter in place with small amount of urine MUSCULOSKELETAL: Extremities without clubbing, cyanosis, Marked generalysed edema. Bilateral LE erythema with induration noted. NEUROLOGICAL: awake, alert non verbal, moaning, not following commands not noted to move BLE PSYCHIATRIC:calm cooperative Assessment & Plan Remarks Severe Sepsis present on admission Mitral valve endocarditis, MSSA MSSA high grade bacteremia. Bilateral LE cellulitis. Ho Rt foot hardware infection MRI w/o e/o osteomyelitis in either feet acute metabolic encephalopathy:sepsis, metabolic. acute resp failure on vent. acute renal failure oliguric: sepsis, meds oxacillin, vanco etc. May end up needing HD. CAD s/p CABG ARF , On HD Persistent coag neg staph bacteremia sp HD catherter removal MS change ? dmedication vs sepsuos Recs: cont Ancef, reduce the dose cont dapto for now St epi fu CKs weekly while on dapto repeat clx Back MRI dw Sue Lucas family @ b/s Lois Otero MD Mar 01, 2018 13:51
[2018-03-01] MEDS: HYDROmorphone HCL PF 0.5 MG/0.5 ML SYRINGE IV PUSH PRN (15:44)
[2018-03-01 16:47] LABS: BICARBONATE 24.7 MEQ/L (21.0-32.0); CALCIUM 8.5 MG/DL (8.5-10.1); CREATININE 6.36 MG/DL (0.60-1.30)
[2018-03-01] MEDS: ONDANSETRON ODT 4 MG TAB PO PRN (18:35)
--- NOTE | 2018-03-01 19:27 | RADRPT ---
EXAM DATE: 03/01/2018 3:04 PM EDT AGE/SEX: 62 years / Male INDICATIONS: . Back pain. CLINICAL DATA: This is the patient's initial encounter. Patient reports that signs and symptoms have been present for 1 week and indicates a pain score of 4/10. MEDICAL/SURGICAL HISTORY: Diabetes mellitus type II. Carcinoma, colon. Hypertension. Colon re section. Bilateral foot surgeries. COMPARISON: No prior exams available for comparison. TECHNIQUE: Multiplanar, multisequence MRI of the lumbar spine was performed without contrast. Patie nt was scanned in a sitting position; neutral, flexion, and extension scans were performed in the sa gittal plane. FINDINGS: At [id number] there is no significant abnormality. At L3-4 there is a broad-based posterior disc bu lge with superior endplate depression at L4 and posterior osteophytic ridging resulting in a mild preet tral canal and lateral recess stenosis and mild right-sided foraminal encroachment. At L4-5 there is facet arthropathy with mild lateral recess stenosis and minimal foraminal encroachme nt. At L5-S1 there is facet arthropathy without significant canal or foraminal stenosis. CONCLUSION: 1. At L3-4 there is a superior endplate depression or Schmorl's node at L4 with disc bulge and osteo phytic ridging resulting in a mild central canal and right lateral recess and foraminal stenosis. 2. At L4-5 there is facet arthropathy with mild lateral recess stenosis. 3. No acute fracture. Conus medullaris intact. Electronically signed by: Clinton Wilkinson MD 03/01/2018 7:26 PM EDT
--- NOTE | 2018-03-01 19:28 | RADRPT ---
EXAM DATE: 03/01/2018 2:54 PM EDT AGE/SEX: 62 years / Male INDICATIONS: . Back pain. CLINICAL DATA: This is the patient's initial encounter. Patient reports that signs and symptoms have been present for 1 week and indicates a pain score of 4/10. MEDICAL/SURGICAL HISTORY: Diabetes mellitus type II. Hypertension. Carcinoma, colon. Colon re section. Bilateral foot surgeries. COMPARISON: No prior exams available for comparison. TECHNIQUE: Multiplanar, multisequence MRI of the thoracic spine was performed. FINDINGS: Thoracic spine MRI reveals no discrete disc protrusions. There is no significant canal or foraminal s tenosis. No cord impingement or cord edema. CONCLUSION: 1. Examination within normal limits for age. No canal or foraminal stenosis. No discrete disc protru sabrina. Electronically signed by: Clinton Wilkinson MD 03/01/2018 7:27 PM EDT
[2018-03-01] MEDS: oxyCODONE/ACETAMINOPHEN 7.5 MG/325 MG TAB PO PRN (21:07)
[2018-03-01] MEDS: DAPTOmycin INJ 800 MG in SODIUM CHLORIDE 0.9% INJ 100 ML IV SCH (21:07)
[2018-03-02] VITALS (9 sets, daily range): BP systolic 147–176; BP diastolic 69–79; PULSE 83–92; RESP 17–18; TEMP 97.8–98.3; O2SAT 96–99
[2018-03-02] MEDS: hydrALAZINE HCL 25 MG TAB PO SCH ×3 (01:47→18:21)
[2018-03-02] MEDS: INSULIN NovoLIN REGULAR SUPPLEMENTAL SCALE SQ SCH ×6 (01:49→21:20)
[2018-03-02] MEDS: CHLORHEXIDINE GLUCONATE 2 % 1 PACK (2 CLOTHS) TOP SCH (03:22)
[2018-03-02] MEDS: FOSPHENYTOIN SODIUM 100 MG PE/2 ML VIAL IV SCH ×2 (05:30→18:22)
[2018-03-02] MEDS: SENNOSIDES SYRUP 8.8 MG/5 ML CUP PO SCH (09:08)
[2018-03-02] MEDS: METOPROLOL TARTRATE 25 MG TAB PO SCH ×2 (09:08→21:21)
[2018-03-02] MEDS: INSULIN DETEMIR 100 UNITS/ML VIAL SQ SCH ×2 (09:09→21:00)
[2018-03-02] MEDS: DOCUSATE SODIUM 100 MG/10 ML UDC PO SCH ×2 (09:09→21:20)
[2018-03-02] MEDS: HEPARIN SODIUM - SQ 10,000 UNITS/ML VIAL SQ SCH ×2 (09:09→21:20)
[2018-03-02] MEDS: PANTOPRAZOLE SODIUM 40 MG VIAL IV PUSH SCH (09:10)
[2018-03-02] MEDS: ONDANSETRON ODT 4 MG TAB PO PRN ×2 (09:10→18:21)
[2018-03-02] MEDS: FUROSEMIDE 20 MG/2 ML VIAL IV PUSH SCH ×2 (09:11→21:21)
[2018-03-02] MEDS: CHLORHEXIDINE 0.12% (ORAL KIT) 15 ML CUP MT SCH ×2 (09:13→20:00)
[2018-03-02] MEDS: ARTIFICIAL TEARS OPTH OINT 3.5 APPLIC/3.5 GM TUBO EACH EYE SCH ×2 (09:22→21:00)
--- NOTE | 2018-03-02 09:30 | HHI.PR ---
Subjective Remarks patient seen with stafff nurse at bedside + nausea on exam speech soft but clear VAS cath removed yesterday he stated his name, and said "[place]" when asked ff some commands needs repeated prompting to anser and to maintain eye contact - preferentially turns his head to the right side Objective Vitals Vital Signs Date Time Temp Pulse Resp B/P (MAP) Pulse Ox O2 Delivery O2 Flow Rate FiO2 03/02/18 08:00 97.9 92 18 160/74 (102) 97 03/02/18 04:00 92 03/02/18 04:00 98.0 88 18 153/78 (103) 96 03/02/18 00:00 98.3 91 18 153/73 (99) 98 03/02/18 00:00 88 03/01/18 23:00 Nasal Cannula 4.00 03/01/18 22:00 20 03/01/18 20:00 Nasal Cannula 4.00 03/01/18 20:00 97.3 90 17 141/67 (91) 98 03/01/18 20:00 90 03/01/18 19:27 Nasal Cannula 4.00 03/01/18 16:00 88 03/01/18 16:00 98.2 86 18 150/71 (97) 98 03/01/18 14:36 98 Nasal Cannula 4.00 03/01/18 12:00 97.8 89 18 133/60 (84) 98 03/01/18 12:00 89 I/O 03/01/18 03/01/18 03/01/18 03/02/18 03/02/18 03/02/18 07:00 15:00 23:00 07:00 15:00 23:00 Intake Total 820 ml 50 ml 960 ml 0 ml Output Total 400 ml 1300 ml 525 ml Balance 420 ml 50 ml -340 ml -525 ml Intake Oral 720 ml 960 ml 0 ml IV Total 100 ml 50 ml Output Urine Total 400 ml 1300 ml 525 ml # Bowel Movements 0 0 Result Diagram: 02/28/18 1015 03/01/18 1553 Imaging Last Impressions Thoracic Spine MRI 03/01/18 0000 Signed Impressions: CONCLUSION: 1. Examination within normal limits for age. No canal or foraminal stenosis. N o discrete disc protrusion. Lumbar Spine MRI 03/01/18 0000 Signed Impressions: CONCLUSION: 1. At L3-4 there is a superior endplate depression or Schmorl's node at L4 wit h disc bulge and osteophytic ridging resulting in a mild central canal and righ t lateral recess and foraminal stenosis. 2. At L4-5 there is facet arthropathy with mild lateral recess stenosis. 3. No acute fracture. Conus medullaris intact. Neck Magnetic Resonance Angiography 02/28/18 Signed Impressions: CONCLUSION: 1. Smooth mild to moderate stenosis proximal left internal carotid artery. Dif ferential diagnosis includes atherosclerotic plaque formation and arthritis. __ Percent stenosis is calculated using the diameter of the stenotic region over t he diameter of the normal distal internal carotid artery __ Head Magnetic Resonance Angiography 02/28/18 0000 Signed Impressions: CONCLUSION: 1. Examination within normal limits for age. Head CT 02/28/18 0000 Signed Impressions: CONCLUSION: 1. Central and cortical atrophy with periventricular ischemic changes, negativ e for acute process. Brain MRI 02/28/18 0000 Signed Impressions: CONCLUSION: 1. Symmetric atrophy. 2. Mastoiditis. 3. No acute intracranial findings. Chest X-Ray 02/26/18 0600 Signed Impressions: CONCLUSION: No significant interval change with persistent mild patchy left lung base opaci ty. Abdomen X-Ray 02/25/18 06 Signed Impressions: CONCLUSION: Nasogastric tube in place. Gas-filled distention of the stomach no longer seen. Nonspecific bowel gas pattern. Abdomen/Pelvis CT 02/22/18 0000 Signed Impressions: CONCLUSION: 1. Small bilateral pleural effusions with dependent atelectasis and consolidat ion in both lungs. 2. Mild ileus. Liver Ultrasound 02/17/18 Signed Impressions: CONCLUSION: 1. Hepatomegaly with coarsened liver echotexture. No focal liver lesion is heath ntified. 2. Mild splenomegaly. Catheter Placement X-Ray 02/17/18 Signed Impressions: CONCLUSION: 1. Uncomplicated line placement as above. Foot MRI 02/14/18 Signed Impressions: CONCLUSION: 1. Diffuse subcutaneous edema of the foot with mild enhancement along the dors al aspect of the foot. This could represent cellulitis. No abscess is identifie d and there are no findings to indicate osteomyelitis. 2. There is some degree of osseous fusion at the tibiotalar joint and there is severe degenerative change at the subtalar joint and talonavicular joint. 3. Old healed fracture of the fifth metatarsal. Foot X-Ray 02/13/18 Signed Impressions: CONCLUSION: 1. There is a transverse fracture through the mid fifth metatarsal. Adjacent p eriosteal reaction is present suggesting that it is subacute or chronic. 2. There has been prior arthrodesis of the subtalar joint and tibiotalar joint s with osseous fusion. Hypertrophic osteophytes are present at the talonavicula r joint. Cervical Spine CT 02/12/18 Signed Impressions: CONCLUSION: Unremarkable study except for slight degenerative spondylosis. CT Angiography 02/12/18 Signed Impressions: CONCLUSION: 1. Possible nodules within the thyroid gland mainly on the right side. 2. Slight fatty liver. 3. No definite pulmonary embolus. Objective Remarks awake and alert, oriented to person and place, responded verbally- speech soft , + pain when ask speech soft but clear pupils equal- repeated prompting to make direct eye contact + gag reflex no facial asymmetry no rales regular rhythm abdomen soft extremities - no edema moves all extremities equally - generalized weakness Urinary Catheter: Yes Assessment to: Continue Charlton insert reason: Measure Accurate Output Date of Insertion: February 13, 2018 A/P Assessment and Plan 62 years old Acute SZ episode Metabolic encephalopathy - Head CT/MRI negative - neuro check q 4 - Neurology ff Dr. Rutherford - on IV Cerebryx Severe Sepsis present on admission Mitral valve endocarditis, MSSA MSSA high grade bacteremia. Bilateral LE cellulitis. Ho Rt foot hardware infection VAS cath was removed MRI w/o osteomyelitis in either feet ID ff- on Ancef Acute renal failure oliguric- secondary to rhabdomyolysis and sepsis, meds oxacillin, vanco etc. - on HD- vas cath removed - due to sepsis - Renal ff - will need another access for HD- will defer to Nephrology Metabolic Encephalopathy- more awake but still encephalopathic- he did state his anme and "Harvey" this am - will get neuropsychology service- Dr. Elizabeth - Cognitive therapy consult Nausea- - get abdominal films - abdomen slightly distended but soft acute resp failure on vent.- resolved off vent Elevated LFTs- trending down CAD s/p CABG History of chronic pain- on further discussion with family- no history of narcotic reaction but refused to be on it - scared of being addicted - prn pain meds - order for MRI of the back- d/w with Dr. Branden Nevarez,Romeo Villaseñor MD Mar 02, 2018 09:30
--- NOTE | 2018-03-02 10:28 | RADRPT ---
EXAM DATE: 03/02/2018 10:21 AM EDT AGE/SEX: 62 years / Male INDICATIONS: Abdominal pain and nausea. CLINICAL DATA: This is the patient's initial encounter. Patient reports that signs and symptoms have been present for 1 day and indicates a pain score of 4/10. MEDICAL/SURGICAL HISTORY: None. None. COMPARISON: [facility], CT ABDOMEN & PELVIS W/O CONTRAST, 02/22/2018. . FINDINGS: Supine and upright views of the abdomen demonstrate air within bowel in a nonobstructive pattern. The re is gaseous distention of the stomach. Upright image demonstrates no free intraperitoneal air or si gnificant air-fluid level. No organomegaly or concerning calcifications are identified. There are deg enerative changes within the lumbar spine and hip joints. CONCLUSION: No acute abdominal abnormality is identified. Electronically signed by: Gilmar Knox MD 03/02/2018 10:27 AM EDT
--- NOTE | 2018-03-02 10:30 | HHI.PR ---
Review/Management Diagnosis/Plan: (1) Acute encephalopathy ICD Codes: G93.40 - Encephalopathy, unspecified Status: Acute Plan: Metabolic encephalopathy Possible focal seizure MRI brain no aneurysm or vaso-occlusive disease. 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 Status: Acute Plan: Seen by cardiology Infectious disease (3) Cardiovascular disease ICD Codes: I25.10 - Atherosclerotic heart disease of elem coronary artery without angina pectoris Status: Acute Plan: Seen by cardiology (4) Acute renal failure ICD Codes: N17.9 - Acute kidney failure, unspecified Status: Chronic Plan: On hemodialysis Subjective Subjective Comments No acute events reported No headache No chest pain No dyspnea Active Medications Current Medications Medications (Trade) Dose Ordered Sig/Ada Route Start Time Stop Time Status Last Admin (NS Flush) 2 ml UNSCH PRN IV FLUSH 02/12/18 21:45 02/27/18 09:47 (Protonix Inj) 40 mg DAILY IV PUSH 02/13/18 09:00 03/02/18 09:10 ([facility] [place] [facility]) 1 Q361D XX 02/13/18 00:00 (Chlorhexidine 2% Cloth) Taper DAILY@04 TOP 02/13/18 04:00 02/09/19 03:59 02/27/18 03:16 (Chlorhexidine 2% Cloth) 3 pack UNSCH PRN TOP 02/13/18 00:00 (Dilaudid Pf Inj) 0.2 mg Q4H PRN IV PUSH 02/13/18 09:00 03/01/18 15:44 (Tylenol) 650 mg Q4H PRN PO 02/13/18 10:45 02/27/18 12:45 (Trandate Inj) 20 mg Q2H PRN IV PUSH 02/13/18 11:00 02/27/18 05:13 (Cepacol Extra Sia (Sugar Free)) 1 lozenge Q1H PRN BUCCAL 02/13/18 11:00 02/13/18 11:03 Propofol 100 ml @ 3.66 mls/hr TITRATE PRN IV 02/13/18 19:45 02/19/18 13:45 (Peridex 0.12% Liq) 15 ml BID@08,20 MT 02/14/18 08:00 6/17/18 09:13 Fentanyl Citrate 250 ml @ 5 mls/hr TITRATE PRN IV 02/13/18 21:15 02/19/18 09:08 Sodium Chloride 1,000 ml @ 0 mls/hr Q0M PRN OTHER 02/17/18 11:29 02/28/18 18:50 (Heparin Inj) 8,000 units UNSCH PRN IV FLUSH 02/17/18 11:30 Sodium Chloride 1,000 ml @ 200 mls/hr Q5H PRN IV 02/17/18 11:29 Sodium Chloride 1,000 ml @ 0 mls/hr Q0M PRN OTHER 02/17/18 11:29 Albumin Human 100 ml @ 60 mls/hr UNSCH PRN IV 02/17/18 11:30 02/28/18 18:50 (NS Flush) 5 ml UNSCH PRN IV FLUSH 02/17/18 11:30 (Heparin Inj) UNSCH PRN .XX 02/17/18 11:30 02/22/18 10:29 (Gentamicin Inj) 20 mg UNSCH PRN OTHER 02/17/18 11:30 02/22/18 10:30 (Zofran Odt) 4 mg UNSCH PRN PO 02/17/18 12:00 (Tylenol) 650 mg UNSCH PRN PO 02/17/18 11:30 (Benadryl) 25 mg UNSCH PRN PO 02/17/18 11:30 (Nitrostat Sl) 0.4 mg UNSCH PRN SL 02/17/18 11:30 (Catapres) 0.1 mg UNSCH PRN PO 02/17/18 11:30 02/24/18 03:50 (Gelfoam 12 Mm/7 Mm Top) 1 foam UNSCH PRN TOP 02/17/18 11:30 (NS Flush) UNSCH PRN IV FLUSH 02/17/18 13:30 (Heparin Inj) UNSCH PRN IV FLUSH 02/17/18 13:30 (Senna Liq) 8.8 mg DAILY PO 02/17/18 15:30 03/02/18 09:08 (Colace Liq) 100 mg Q12HR PO 02/17/18 21:00 03/02/18 09:09 (Lopressor) 25 mg Q12HR PO 02/19/18 09:00 03/02/18 09:08 Daptomycin 800 mg/ Sodium Chloride 100 ml @ 200 mls/hr Q48H IV 02/19/18 20:00 03/01/18 21:07 Dexmedetomidine HCl 1000 mcg/ Sodium Chloride 250 ml @ 6.6 mls/hr TITRATE PRN IV 02/19/18 23:30 02/26/18 09:43 (Albuterol Neb) 2.5 mg Q2HR NEB PRN NEB 02/20/18 22:00 (D50w (Vial) Inj) 50 ml UNSCH PRN IV PUSH 02/21/18 10:00 (Glucagon Inj) 1 mg UNSCH PRN OTHER 02/21/18 10:00 (NovoLIN R SUPPLEMENTAL SCALE) 1 Q4H SQ 02/21/18 10:00 03/02/18 01:49 (Lacrilube Opht Oint) 1 applic Q12HR EACH EYE 02/22/18 21:00 03/02/18 09:22 (Apresoline) 75 mg Q8H PO 02/22/18 18:00 03/02/18 09:33 (Lasix Inj) 80 mg BID IV PUSH 02/23/18 21:00 03/02/18 09:11 (Levemir Inj) 20 units Q12HR SQ 02/24/18 09:00 03/02/18 09:09 (Heparin Inj) 5,000 units Q12HR SQ 02/24/18 09:00 03/02/18 09:09 (Cerebyx Inj) 200 mgpe Q12H IV 03/01/18 06:00 03/02/18 05:30 (Percocet 7.5-325 Mg) 1 tab Q4H PRN PO 03/01/18 13:30 03/01/18 21:07 Cefazolin Sodium 1000 mg/Sodium Chloride 100 ml @ 200 mls/hr Q24H IV 03/03/18 14:00 (Zofran Odt) 4 mg Q6H PRN PO 03/01/18 18:15 03/02/18 09:10 Allergies Allergies Coded Allergies No Known Allergies (Unverified10/21/17) Review of Systems All other ROS: ROS reviewed as documented in chart Exam I&O / VS Vital Signs Date Time Temp Pulse Resp B/P (MAP) Pulse Ox O2 Delivery O2 Flow Rate FiO2 03/02/18 08:00 97.9 92 18 160/74 (102) 97 03/02/18 04:00 92 03/02/18 04:00 98.0 88 18 153/78 (103) 96 03/02/18 00:00 98.3 91 18 153/73 (99) 98 03/02/18 00:00 88 03/01/18 23:00 Nasal Cannula 4.00 03/01/18 22:00 20 03/01/18 20:00 Nasal Cannula 4.00 03/01/18 20:00 97.3 90 17 141/67 (91) 98 03/01/18 20:00 90 03/01/18 19:27 Nasal Cannula 4.00 03/01/18 16:00 88 03/01/18 16:00 98.2 86 18 150/71 (97) 98 03/01/18 14:36 98 Nasal Cannula 4.00 03/01/18 12:00 97.8 89 18 133/60 (84) 98 03/01/18 12:00 89 Exam Comments Awake alert disoriented and attentive was able to tell me his name on one occasion very inconsistently able to follow 8 intact blink to threat OU 3-2 mm no facial asymmetry no involuntary movements no gaze deviation generalized weakness with paraparesis however able to left upper extremities to gravity plantarflex her no clonus elicited Objective Micro and Labs Laboratory Tests Test 03/01/18 15:53 03/02/18 08:17 Blood Urea Nitrogen 80 Creatinine 6.36 Random Glucose 239 Calcium Level 8.5 Sodium Level 134 Potassium Level 3.8 Chloride Level 94 Carbon Dioxide Level 24.7 Anion Gap 15 Estimat Glomerular Filtration Rate 9 Date/Time Source Procedure Growth Status 03/01/18 15:53 Blood Peripheral Aerobic Blood Culture Pending Received 03/01/18 15:53 Blood Peripheral Anaerobic Blood Culture Pending Received 02/19/18 08:29 Sputum Endotracheal Gram Stain - Final Complete 02/19/18 08:29 Sputum Endotracheal Sputum Culture - Final RARE GROWTH NORMAL RESPIRATORY DREW Complete 02/19/18 08:30 Urine Catheterized Urine Urine Culture - Final NO GROWTH IN 48 HOURS. Complete 02/28/18 20:15 Catheter Tip Vas Cath Wound Culture - Final NO GROWTH IN 48 HOURS. Complete Yogi Landis MD Mar 02, 2018 10:30
[2018-03-02 11:11] LABS: BICARBONATE 25.5 MEQ/L (21.0-32.0); CALCIUM 8.1 MG/DL (8.5-10.1); CREATININE 7.31 MG/DL (0.60-1.30)
--- NOTE | 2018-03-02 11:54 | HHI.PR ---
Review/Management Diagnosis/Plan: (1) Acute encephalopathy ICD Codes: G93.40 - Encephalopathy, unspecified Status: Acute Plan: Metabolic encephalopathy Possible focal seizure MRI brain no aneurysm or vaso-occlusive disease. 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 Status: Acute Plan: Seen by cardiology Infectious disease (3) Cardiovascular disease ICD Codes: I25.10 - Atherosclerotic heart disease of [place] coronary artery without angina pectoris Status: Acute Plan: Seen by cardiology (4) Acute renal failure ICD Codes: N17.9 - Acute kidney failure, unspecified Status: Chronic Plan: On hemodialysis Subjective Subjective Comments No acute events reported No headache No chest pain No dyspnea Active Medications Current Medications Medications (Trade) Dose Ordered Sig/Ada Route Start Time Stop Time Status Last Admin (NS Flush) 2 ml UNSCH PRN IV FLUSH 02/12/18 21:45 02/27/18 09:47 (Protonix Inj) 40 mg DAILY IV PUSH 02/13/18 09:00 03/02/18 09:10 ([facility] [place] Nursing Information) 1 Q361D XX 02/13/18 00:00 (Chlorhexidine 2% Cloth) Taper DAILY@04 TOP 02/13/18 04:00 02/09/19 03:59 02/27/18 03:16 (Chlorhexidine 2% Cloth) 3 pack UNSCH PRN TOP 02/13/18 00:00 (Dilaudid Pf Inj) 0.2 mg Q4H PRN IV PUSH 02/13/18 09:00 03/01/18 15:44 (Tylenol) 650 mg Q4H PRN PO 02/13/18 10:45 02/27/18 12:45 (Trandate Inj) 20 mg Q2H PRN IV PUSH 02/13/18 11:00 02/27/18 05:13 (Cepacol Extra Sia (Sugar Free)) 1 lozenge Q1H PRN BUCCAL 02/13/18 11:00 02/13/18 11:03 Propofol 100 ml @ 3.66 mls/hr TITRATE PRN IV 02/13/18 19:45 02/19/18 13:45 (Peridex 0.12% Liq) 15 ml BID@08,20 MT 02/14/18 08:00 03/02/18 09:13 Fentanyl Citrate 250 ml @ 5 mls/hr TITRATE PRN IV 02/13/18 21:15 02/19/18 09:08 Sodium Chloride 1,000 ml @ 0 mls/hr Q0M PRN OTHER 02/17/18 11:29 02/28/18 18:50 (Heparin Inj) 8,000 units UNSCH PRN IV FLUSH 02/17/18 11:30 Sodium Chloride 1,000 ml @ 200 mls/hr Q5H PRN IV 02/17/18 11:29 Sodium Chloride 1,000 ml @ 0 mls/hr Q0M PRN OTHER 02/17/18 11:29 Albumin Human 100 ml @ 60 mls/hr UNSCH PRN IV 02/17/18 11:30 02/28/18 18:50 (NS Flush) 5 ml UNSCH PRN IV FLUSH 02/17/18 11:30 (Heparin Inj) UNSCH PRN .XX 02/17/18 11:30 02/22/18 10:29 (Gentamicin Inj) 20 mg UNSCH PRN OTHER 02/17/18 11:30 02/22/18 10:30 (Zofran Odt) 4 mg UNSCH PRN PO 02/17/18 12:00 (Tylenol) 650 mg UNSCH PRN PO 02/17/18 11:30 (Benadryl) 25 mg UNSCH PRN PO 02/17/18 11:30 (Nitrostat Sl) 0.4 mg UNSCH PRN SL 02/17/18 11:30 (Catapres) 0.1 mg UNSCH PRN PO 02/17/18 11:30 02/24/18 03:50 (Gelfoam 12 Mm/7 Mm Top) 1 foam UNSCH PRN TOP 02/17/18 11:30 (NS Flush) UNSCH PRN IV FLUSH 02/17/18 13:30 (Heparin Inj) UNSCH PRN IV FLUSH 02/17/18 13:30 (Senna Liq) 8.8 mg DAILY PO 02/17/18 15:30 03/02/18 09:08 (Colace Liq) 100 mg Q12HR PO 02/17/18 21:00 03/02/18 09:09 (Lopressor) 25 mg Q12HR PO 02/19/18 09:00 03/02/18 09:08 Daptomycin 800 mg/ Sodium Chloride 100 ml @ 200 mls/hr Q48H IV 02/19/18 20:00 03/01/18 21:07 Dexmedetomidine HCl 1000 mcg/ Sodium Chloride 250 ml @ 6.6 mls/hr TITRATE PRN IV 02/19/18 23:30 02/26/18 09:43 (Albuterol Neb) 2.5 mg Q2HR NEB PRN NEB 02/20/18 22:00 (D50w (Vial) Inj) 50 ml UNSCH PRN IV PUSH 02/21/18 10:00 (Glucagon Inj) 1 mg UNSCH PRN OTHER 02/21/18 10:00 (NovoLIN R SUPPLEMENTAL SCALE) 1 Q4H SQ 02/21/18 10:00 03/02/18 01:49 (Lacrilube Opht Oint) 1 applic Q12HR EACH EYE 02/22/18 21:00 03/02/18 09:22 (Apresoline) 75 mg Q8H PO 02/22/18 18:00 03/02/18 09:33 (Lasix Inj) 80 mg BID IV PUSH 02/23/18 21:00 03/02/18 09:11 (Levemir Inj) 20 units Q12HR SQ 02/24/18 09:00 03/02/18 09:09 (Heparin Inj) 5,000 units Q12HR SQ 02/24/18 09:00 03/02/18 09:09 (Cerebyx Inj) 200 mgpe Q12H IV 03/01/18 06:00 03/02/18 05:30 (Percocet 7.5-325 Mg) 1 tab Q4H PRN PO 03/01/18 13:30 03/01/18 21:07 Cefazolin Sodium 1000 mg/Sodium Chloride 100 ml @ 200 mls/hr Q24H IV 03/03/18 14:00 (Zofran Odt) 4 mg Q6H PRN PO 03/01/18 18:15 03/02/18 09:10 Allergies Allergies Coded Allergies No Known Allergies (Unverified10/21/17) Review of Systems All other ROS: ROS reviewed as documented in chart Exam I&O / VS Vital Signs Date Time Temp Pulse Resp B/P (MAP) Pulse Ox O2 Delivery O2 Flow Rate FiO2 03/02/18 08:00 Nasal Cannula 4.00 30 03/02/18 08:00 97.9 92 18 160/74 (102) 97 03/02/18 08:00 90 03/02/18 04:00 92 03/02/18 04:00 98.0 88 18 153/78 (103) 96 03/02/18 00:00 98.3 91 18 153/73 (99) 98 03/02/18 00:00 88 03/01/18 23:00 Nasal Cannula 4.00 03/01/18 22:00 20 03/01/18 20:00 Nasal Cannula 4.00 03/01/18 20:00 97.3 90 17 141/67 (91) 98 03/01/18 20:00 90 03/01/18 19:27 Nasal Cannula 4.00 03/01/18 16:00 88 03/01/18 16:00 98.2 86 18 150/71 (97) 98 03/01/18 14:36 98 Nasal Cannula 4.00 03/01/18 12:00 97.8 89 18 133/60 (84) 98 03/01/18 12:00 89 Exam Comments Alert oriented to self. Recognizes his sisters at bedside able to say a few words with them. They stated yesterday he was joking with them. Feel he is overall doing better from a mental status standpoint intact blink to threat OU 3 -2 mm no facial asymmetry no involuntary movements no gaze deviation generalized weakness with paraparesis however able to left upper extremities to gravity plantarflex her no clonus elicited Objective Micro and Labs Laboratory Tests Test 03/01/18 15:53 03/02/18 08:17 Blood Urea Nitrogen 80 93 Creatinine 6.36 7.31 Random Glucose 239 123 Calcium Level 8.5 8.1 Sodium Level 134 135 Potassium Level 3.8 4.4 Chloride Level 94 94 Carbon Dioxide Level 24.7 25.5 Anion Gap 15 16 Estimat Glomerular Filtration Rate 9 8 Total Creatine Kinase 213 Phenytoin (Dilantin) Level 4.0 Date/Time Source Procedure Growth Status 03/01/18 15:53 Blood Peripheral Aerobic Blood Culture - Preliminary NO GROWTH IN 1 DAY Resulted 03/01/18 15:53 Blood Peripheral Anaerobic Blood Culture - Preliminary NO GROWTH IN 1 DAY Resulted 02/19/18 08:29 Sputum Endotracheal Gram Stain - Final Complete 02/19/18 08:29 Sputum Endotracheal Sputum Culture - Final RARE GROWTH NORMAL RESPIRATORY DREW Complete 02/19/18 08:30 Urine Catheterized Urine Urine Culture - Final NO GROWTH IN 48 HOURS. Complete 02/28/18 20:15 Catheter Tip Vas Cath Wound Culture - Final NO GROWTH IN 48 HOURS. Complete Yogi Landis MD Mar 02, 2018 11:54
--- NOTE | 2018-03-02 12:25 | HHI.NPPN ---
Subjective History of Present Illness The patient is a 62 yo [place] male with PMHx of DM, CAD, CVA, BPH, HTN, Colon [place], Anemia, GERD, who was brought into this facility on 02/12/18 after brother found him down on the ground at his home for >18hrs. Unclear if he had lost consciousness or the mechanism of his fall as the patient is currently intubated and sedated. Has been diagnosed with MSSA sepsis, but source is not entirely clear. Has hardware in his right ankle but podiatry does not feel that this is the source. Underwent STEF this AM and cardiology is suspicious for mitral valve vegetation, however, formal report is pending. His admitting SCr was 1.32 and has deteriorated to 4.14 at time of consult. He is 10L to the positive and UOP is marginal. Nephrology has been consulted for management of acute renal failure. Appears preserved renal functions predating this admission, with baseline SCr 0.6-0.8 as per Oct 2017 admission. Interval History Patient remains lethargic. Sisters by bedside. Review of Systems General General Remarks Patient intubated on ventilatory support. Objective Data Data Vital Signs Date Time Temp Pulse Resp B/P (MAP) Pulse Ox O2 Delivery O2 Flow Rate FiO2 03/02/18 08:00 Nasal Cannula 4.00 30 03/02/18 08:00 97.9 92 18 160/74 (102) 97 03/02/18 08:00 90 03/02/18 04:00 92 03/02/18 04:00 98.0 88 18 153/78 (103) 96 03/02/18 00:00 98.3 91 18 153/73 (99) 98 03/02/18 00:00 88 03/01/18 23:00 Nasal Cannula 4.00 03/01/18 22:00 20 03/01/18 20:00 Nasal Cannula 4.00 03/01/18 20:00 97.3 90 17 141/67 (91) 98 03/01/18 20:00 90 03/01/18 19:27 Nasal Cannula 4.00 03/01/18 16:00 88 03/01/18 16:00 98.2 86 18 150/71 (97) 98 03/01/18 14:36 98 Nasal Cannula 4.00 -: 02/28/18 1015 03/02/18 0817 Microbiology 03/01/18 Aerobic Blood Culture - Preliminary, Resulted NO GROWTH IN 1 DAY 03/01/18 Anaerobic Blood Culture - Preliminary, Resulted NO GROWTH IN 1 DAY 03/01/18 Aerobic Blood Culture - Preliminary, Resulted NO GROWTH IN 1 DAY 03/01/18 Anaerobic Blood Culture - Preliminary, Resulted NO GROWTH IN 1 DAY Tubes & Lines: Vas-Cath ([facility]) Physical Exam General Appearance: Comfortable, Obese Eyes Eye Exam: Sclera White Neck Neck Exam: Trachea Midline Pulmonary Resp Exam: Clear Bilaterally, Breath Sounds Equal, Decreased Bases Cardiology CV Exam: Regular, Normal Sinus Rhythm Gastrointestinal/Abdomen GI Exam: Soft, Non-Tender Integumentary Skin Exam: Clear, Warm Extremeties Extremities Exam: Trace Edema (Of the lower legs and ankles.), Pitting Edema ( Generalized edema.) Assessment/Plan Problem List: (1) Acute renal failure ICD Codes: N17.9 - Acute kidney failure, unspecified Status: Chronic Plan: Urine output improved again however renal indices continue to worsen off dialysis. Vas-Cath removed on Saturday at request of infectious disease in the hope of aiding clearing of bacteremia. Repeat BMP a.m. If azotemia continues to worsen will require a new Vas-Cath placement as discussed with his sisters to continue dialysis. No evidence of significant renal recovery at this time as discussed with his sisters by the bedside. Medications should be adjusted for the patient's renal decline. Avoid nephrotoxic medications such as iodinated contrast dyes and NSAIDs. Avoid gadolinium. (2) Sepsis ICD Codes: A41.9 - Sepsis, unspecified organism Status: Acute Plan: Source? Pending STEF results Abx as per ID (3) Rhabdomyolysis ICD Codes: M62.82 - Rhabdomyolysis Status: Acute Plan: Apparent given elevated CPK and urinary sediment. CPK trending down. Continue to monitor. (4) Adrenal nodule ICD Codes: E27.9 - Disorder of adrenal gland, unspecified Plan: Incidentally noted on CT scan. 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 Problem Qualifiers (1) Rhabdomyolysis: Qualified Codes: T79.6XXA - Traumatic ischemia of muscle, initial encounter Jeffy Brewer MD Mar 02, 2018 12:25
[2018-03-02] MEDS ORDERED: CHLOROTHIAZIDE SOD 500 MG VIAL IV ONE (12:30)
[2018-03-02] MEDS: oxyCODONE/ACETAMINOPHEN 7.5 MG/325 MG TAB PO PRN ×2 (13:04→18:21)
[2018-03-03] VITALS (10 sets, daily range): BP systolic 144–166; BP diastolic 73–82; PULSE 79–114; RESP 16–18; TEMP 97.1–98.7; O2SAT 93–98
[2018-03-03] MEDS: hydrALAZINE HCL 25 MG TAB PO SCH ×3 (01:31→18:00)
[2018-03-03] MEDS: oxyCODONE/ACETAMINOPHEN 7.5 MG/325 MG TAB PO PRN (01:32)
[2018-03-03] MEDS: INSULIN NovoLIN REGULAR SUPPLEMENTAL SCALE SQ SCH ×6 (02:00→21:45)
[2018-03-03] MEDS: CHLORHEXIDINE GLUCONATE 2 % 1 PACK (2 CLOTHS) TOP SCH (03:54)
[2018-03-03] MEDS: FOSPHENYTOIN SODIUM 100 MG PE/2 ML VIAL IV SCH ×2 (06:33→18:00)
[2018-03-03] MEDS: CHLORHEXIDINE 0.12% (ORAL KIT) 15 ML CUP MT SCH ×2 (08:00→20:00)
[2018-03-03 08:24] LABS: ALBUMIN 2.7 GM/DL (3.4-5.0); CALCIUM 7.9 MG/DL (8.5-10.1); CREATININE 7.96 MG/DL (0.60-1.30); PHENYTOIN (DILANTIN) 9.8 MCG/ML (10.0-20.0); PHOSPHORUS 9.3 MG/DL (2.5-4.9)
[2018-03-03 08:26] LABS: BICARBONATE 24.8 MEQ/L (21.0-32.0)
--- NOTE | 2018-03-03 09:26 | HHI.PR ---
Review/Management Diagnosis/Plan: (1) Acute encephalopathy ICD Codes: G93.40 - Encephalopathy, unspecified Status: Acute Plan: Metabolic encephalopathy Possible focal seizure MRI brain no aneurysm or vaso-occlusive disease. 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 - Other rheumatic mitral valve diseases Status: Acute Plan: Seen by cardiology Infectious disease (3) Cardiovascular disease ICD Codes: I25.10 - Atherosclerotic heart disease of [place] coronary artery without angina pectoris Status: Acute Plan: Seen by cardiology (4) Acute renal failure ICD Codes: N17.9 - Acute kidney failure, unspecified Status: Chronic Plan: On hemodialysis Subjective Subjective Comments No acute events reported No headache No chest pain No dyspnea Active Medications Current Medications Medications (Trade) Dose Ordered Sig/Ada Route Start Time Stop Time Status Last Admin (NS Flush) 2 ml UNSCH PRN IV FLUSH 02/12/18 21:45 02/27/18 09:47 (Protonix Inj) 40 mg DAILY IV PUSH 02/13/18 09:00 03/03/18 23:59 03/02/18 09:10 ([facility] Information) 1 Q361D XX 02/13/18 00:00 (Chlorhexidine 2% Cloth) Taper DAILY@04 TOP 02/13/18 04:00 02/09/19 03:59 02/27/18 03:16 (Chlorhexidine 2% Cloth) 3 pack UNSCH PRN TOP 02/13/18 00:00 (Dilaudid Pf Inj) 0.2 mg Q4H PRN IV PUSH 02/13/18 09:00 03/01/18 15:44 (Tylenol) 650 mg Q4H PRN PO 02/13/18 10:45 02/27/18 12:45 (Trandate Inj) 20 mg Q2H PRN IV PUSH 02/13/18 11:00 02/27/18 05:13 (Cepacol Extra Sia (Sugar Free)) 1 lozenge Q1H PRN BUCCAL 02/13/18 11:00 02/13/18 11:03 Propofol 100 ml @ 3.66 mls/hr TITRATE PRN IV 02/13/18 19:45 02/19/18 13:45 (Peridex 0.12% Liq) 15 ml BID@08,20 MT 02/14/18 08:00 03/02/18 20:00 Fentanyl Citrate 250 ml @ 5 mls/hr TITRATE PRN IV 02/13/18 21:15 02/19/18 09:08 Sodium Chloride 1,000 ml @ 0 mls/hr Q0M PRN OTHER 02/17/18 11:29 02/28/18 18:50 (Heparin Inj) 8,000 units UNSCH PRN IV FLUSH 02/17/18 11:30 Sodium Chloride 1,000 ml @ 200 mls/hr Q5H PRN IV 02/17/18 11:29 Sodium Chloride 1,000 ml @ 0 mls/hr Q0M PRN OTHER 02/17/18 11:29 Albumin Human 100 ml @ 60 mls/hr UNSCH PRN IV 02/17/18 11:30 02/28/18 18:50 (NS Flush) 5 ml UNSCH PRN IV FLUSH 02/17/18 11:30 (Heparin Inj) UNSCH PRN .XX 02/17/18 11:30 02/22/18 10:29 (Gentamicin Inj) 20 mg UNSCH PRN OTHER 02/17/18 11:30 02/22/18 10:30 (Zofran Odt) 4 mg UNSCH PRN PO 02/17/18 12:00 (Tylenol) 650 mg UNSCH PRN PO 02/17/18 11:30 (Benadryl) 25 mg UNSCH PRN PO 02/17/18 11:30 (Nitrostat Sl) 0.4 mg UNSCH PRN SL 02/17/18 11:30 (Catapres) 0.1 mg UNSCH PRN PO 02/17/18 11:30 02/24/18 03:50 (Gelfoam 12 Mm/7 Mm Top) 1 foam UNSCH PRN TOP 02/17/18 11:30 (NS Flush) UNSCH PRN IV FLUSH 02/17/18 13:30 (Heparin Inj) UNSCH PRN IV FLUSH 02/17/18 13:30 (Senna Liq) 8.8 mg DAILY PO 02/17/18 15:30 03/02/18 09:08 (Colace Liq) 100 mg Q12HR PO 02/17/18 21:00 03/02/18 21:20 (Lopressor) 25 mg Q12HR PO 02/19/18 09:00 03/02/18 21:21 Daptomycin 800 mg/ Sodium Chloride 100 ml @ 200 mls/hr Q48H IV 02/19/18 20:00 03/01/18 21:07 Dexmedetomidine HCl 1000 mcg/ Sodium Chloride 250 ml @ 6.6 mls/hr TITRATE PRN IV 02/19/18 23:30 02/26/18 09:43 (Albuterol Neb) 2.5 mg Q2HR NEB PRN NEB 02/20/18 22:00 (D50w (Vial) Inj) 50 ml UNSCH PRN IV PUSH 02/21/18 10:00 (Glucagon Inj) 1 mg UNSCH PRN OTHER 02/21/18 10:00 (NovoLIN R SUPPLEMENTAL SCALE) 1 Q4H SQ 02/21/18 10:00 03/03/18 02:00 (Lacrilube Opht Oint) 1 applic Q12HR EACH EYE 02/22/18 21:00 03/02/18 21:00 (Apresoline) 75 mg Q8H PO 02/22/18 18:00 03/03/18 01:31 (Lasix Inj) 80 mg BID IV PUSH 02/23/18 21:00 03/02/18 21:21 (Levemir Inj) 20 units Q12HR SQ 02/24/18 09:00 03/02/18 21:00 (Heparin Inj) 5,000 units Q12HR SQ 02/24/18 09:00 03/02/18 21:20 (Cerebyx Inj) 200 mgpe Q12H IV 03/01/18 06:00 03/03/18 06:33 (Percocet 7.5-325 Mg) 1 tab Q4H PRN PO 03/01/18 13:30 03/03/18 01:32 Cefazolin Sodium 1000 mg/Sodium Chloride 100 ml @ 200 mls/hr Q24H IV 03/03/18 14:00 (Zofran Odt) 4 mg Q6H PRN PO 03/01/18 18:15 03/02/18 18:21 (Protonix) 40 mg DAILY PO 03/04/18 09:00 Allergies Allergies Coded Allergies No Known Allergies (Unverified10/21/17) Review of Systems All other ROS: ROS reviewed as documented in chart Exam I&O / VS Vital Signs Date Time Temp Pulse Resp B/P (MAP) Pulse Ox O2 Delivery O2 Flow Rate FiO2 03/03/18 04:00 98.3 79 18 150/73 (98) 97 03/03/18 03:43 81 03/03/18 00:00 97.6 88 17 166/77 (106) 98 03/02/18 23:43 89 03/02/18 20:00 98.0 87 17 176/79 (111) 99 03/02/18 20:00 Nasal Cannula 3.00 03/02/18 19:45 86 03/02/18 16:00 98.1 83 18 157/73 (101) 98 03/02/18 16:00 86 03/02/18 12:15 97 Nasal Cannula 3.00 03/02/18 12:00 97.8 84 18 147/69 (95) 97 03/02/18 12:00 87 Exam Comments Alert sitting up no acute distress is working with therapist conversing with them looks comfortable appears to follow, no facial asymmetry no involuntary movements no gaze deviation generalized weakness with paraparesis however able to left upper extremities to gravity plantarflex her no clonus elicited Objective Micro and Labs Laboratory Tests Test 03/03/18 06:54 Blood Urea Nitrogen 108 Creatinine 7.96 Random Glucose 128 Albumin 2.7 Calcium Level 7.9 Phosphorus Level 9.3 Sodium Level 130 Potassium Level 4.9 Chloride Level 89 Carbon Dioxide Level 24.8 Anion Gap 16 Estimat Glomerular Filtration Rate 7 Phenytoin (Dilantin) Level 9.8 Date/Time Source Procedure Growth Status 03/01/18 15:53 Blood Peripheral Aerobic Blood Culture - Preliminary NO GROWTH IN 1 DAY Resulted 03/01/18 15:53 Blood Peripheral Anaerobic Blood Culture - Preliminary NO GROWTH IN 1 DAY Resulted 02/19/18 08:29 Sputum Endotracheal Gram Stain - Final Complete 02/19/18 08:29 Sputum Endotracheal Sputum Culture - Final RARE GROWTH NORMAL RESPIRATORY DREW Complete 02/19/18 08:30 Urine Catheterized Urine Urine Culture - Final NO GROWTH IN 48 HOURS. Complete 02/28/18 20:15 Catheter Tip Vas Cath Wound Culture - Final NO GROWTH IN 48 HOURS. Complete Yogi Landis MD Mar 03, 2018 09:26
[2018-03-03] MEDS: FUROSEMIDE 20 MG/2 ML VIAL IV PUSH SCH ×2 (10:29→21:44)
[2018-03-03] MEDS: METOPROLOL TARTRATE 25 MG TAB PO SCH ×2 (10:29→21:44)
[2018-03-03] MEDS: DOCUSATE SODIUM 100 MG/10 ML UDC PO SCH ×2 (10:29→21:44)
[2018-03-03] MEDS: SENNOSIDES SYRUP 8.8 MG/5 ML CUP PO SCH (10:30)
[2018-03-03] MEDS: SODIUM CHLORIDE 0.9% FLUSH 10 ML FLUSH IV FLUSH PRN (10:30)
[2018-03-03] MEDS: HEPARIN SODIUM - SQ 10,000 UNITS/ML VIAL SQ SCH ×2 (10:30→21:44)
[2018-03-03] MEDS: PANTOPRAZOLE SODIUM 40 MG VIAL IV PUSH SCH (10:30)
[2018-03-03] MEDS: INSULIN DETEMIR 100 UNITS/ML VIAL SQ SCH ×2 (10:31→21:45)
[2018-03-03] MEDS: ARTIFICIAL TEARS OPTH OINT 3.5 APPLIC/3.5 GM TUBO EACH EYE SCH ×2 (10:32→21:43)
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
--- NOTE | 2018-03-03 13:12 | HHI.PR ---
Subjective Remarks sergey with family at bedside more awake and alert, and more interactive known he is in the hospital and year was able to identify me "You're my Doc" ff all commands no nausea t down still with low back discomfort Objective Vitals Vital Signs Date Time Temp Pulse Resp B/P (MAP) Pulse Ox O2 Delivery O2 Flow Rate FiO2 03/03/18 08:00 97.9 83 16 144/73 (96) 97 03/03/18 07:47 81 03/03/18 04:00 98.3 79 18 150/73 (98) 97 03/03/18 03:43 81 03/03/18 00:00 97.6 88 17 166/77 (106) 98 03/02/18 23:43 89 03/02/18 20:00 98.0 87 17 176/79 (111) 99 03/02/18 20:00 Nasal Cannula 3.00 03/02/18 19:45 86 03/02/18 16:00 98.1 83 18 157/73 (101) 98 03/02/18 16:00 86 I/O 03/02/18 03/02/18 03/02/18 03/03/18 03/03/18 03/03/18 07:00 15:00 23:00 07:00 15:00 23:00 Intake Total 0 ml 480 ml 240 ml Output Total 525 ml 500 ml Balance -525 ml -20 ml 240 ml Intake Oral 0 ml 480 ml 240 ml Output Urine Total 525 ml 500 ml # Voids 2 # Bowel Movements 0 0 Result Diagram: 02/28/18 1015 03/03/18 0654 Imaging Last Impressions Abdomen X-Ray 03/02/18 0000 Signed Impressions: CONCLUSION: No acute abdominal abnormality is identified. Thoracic Spine MRI 03/01/18 0000 Signed Impressions: CONCLUSION: 1. Examination within normal limits for age. No canal or foraminal stenosis. N o discrete disc protrusion. Lumbar Spine MRI 03/01/18 0000 Signed Impressions: CONCLUSION: 1. At L3-4 there is a superior endplate depression or Schmorl's node at L4 wit h disc bulge and osteophytic ridging resulting in a mild central canal and righ t lateral recess and foraminal stenosis. 2. At L4-5 there is facet arthropathy with mild lateral recess stenosis. 3. No acute fracture. Conus medullaris intact. Neck Magnetic Resonance Angiography 02/28/18 Signed Impressions: CONCLUSION: 1. Smooth mild to moderate stenosis proximal left internal carotid artery. Dif ferential diagnosis includes atherosclerotic plaque formation and arthritis. __ Percent stenosis is calculated using the diameter of the stenotic region over t he diameter of the normal distal internal carotid artery __ Head Magnetic Resonance Angiography 02/28/18 Signed Impressions: CONCLUSION: 1. Examination within normal limits for age. Head CT 02/28/18 Signed Impressions: CONCLUSION: 1. Central and cortical atrophy with periventricular ischemic changes, negativ e for acute process. Brain MRI 02/28/18 Signed Impressions: CONCLUSION: 1. Symmetric atrophy. 2. Mastoiditis. 3. No acute intracranial findings. Chest X-Ray 02/26/18 0600 Signed Impressions: CONCLUSION: No significant interval change with persistent mild patchy left lung base opaci ty. Abdomen/Pelvis CT 02/22/18 Signed Impressions: CONCLUSION: 1. Small bilateral pleural effusions with dependent atelectasis and consolidat ion in both lungs. 2. Mild ileus. Liver Ultrasound 02/17/18 Signed Impressions: CONCLUSION: 1. Hepatomegaly with coarsened liver echotexture. No focal liver lesion is heath ntified. 2. Mild splenomegaly. Catheter Placement X-Ray 02/17/18 Signed Impressions: CONCLUSION: 1. Uncomplicated line placement as above. Foot MRI 02/14/18 Signed Impressions: CONCLUSION: 1. Diffuse subcutaneous edema of the foot with mild enhancement along the dors al aspect of the foot. This could represent cellulitis. No abscess is identifie d and there are no findings to indicate osteomyelitis. 2. There is some degree of osseous fusion at the tibiotalar joint and there is severe degenerative change at the subtalar joint and talonavicular joint. 3. Old healed fracture of the fifth metatarsal. Foot X-Ray 02/13/18 0000 Signed Impressions: CONCLUSION: 1. There is a transverse fracture through the mid fifth metatarsal. Adjacent p eriosteal reaction is present suggesting that it is subacute or chronic. 2. There has been prior arthrodesis of the subtalar joint and tibiotalar joint s with osseous fusion. Hypertrophic osteophytes are present at the talonavicula r joint. Cervical Spine CT 02/12/18 0000 Signed Impressions: CONCLUSION: Unremarkable study except for slight degenerative spondylosis. CT Angiography 02/12/18 0000 Signed Impressions: CONCLUSION: 1. Possible nodules within the thyroid gland mainly on the right side. 2. Slight fatty liver. 3. No definite pulmonary embolus. Objective Remarks awake and alert, oriented to person and place,more interactive speech soft but clear pupils equal- + gag reflex no facial asymmetry no rales regular rhythm abdomen soft extremities - no edema moves all extremities equally - generalized weakness Urinary Catheter: Yes Assessment to: Continue Date of Insertion: February 13, 2018 A/P Assessment and Plan 62 years old Acute SZ episode Metabolic encephalopathy - Head CT/MRI negative - neuro check q 4 - Neurology ff Dr. Rutherford - on IV Cerebryx Severe Sepsis present on admission Mitral valve endocarditis, MSSA MSSA high grade bacteremia. Bilateral LE cellulitis. Ho Rt foot hardware infection VAS cath was removed MRI w/o osteomyelitis in either feet ID ff- on Ancef Acute renal failure oliguric-- not recovering secondary to rhabdomyolysis and sepsis, meds oxacillin, vanco etc. - on HD- vas cath removed - due to sepsis - Renal ff - IR consulted today for Vascath replacement then HD right after - eventually will need permcath placed for permament HD once cleared with ID Metabolic Encephalopathy- gradually improving - appreciate Dr. Elizabeth- neuropsychology seeing patient - Cognitive therapy Nausea- likely from uremia acute resp failure on vent.- resolved off vent Elevated LFTs- trending down. - ff periodically CAD s/p CABG History of chronic pain- on further discussion with family- no history of narcotic reaction but refused to be on it - scared of being addicted - prn pain meds - MRI no acute disease DC planning- patient will need rehab Romeo Nevarez MD Mar 03, 2018 13:12
--- NOTE | 2018-03-03 14:56 | PD.RAD ---
Post Procedure Progress Note Pre Procedure Diagnosis: (1) Acute renal failure Post Procedure Diagnosis: (1) Acute renal failure Procedure Date: Mar 03, 2018 Supervising Radiologist: Gio Winston Estimated blood loss: 3cc Anesthesia: Local Plan of Activity Patient to Unit: Nursing Unit Patient Condition: Poor Additional Comments: Right Ij vascath placed without difficulty. catheter in good position OK for use. Full dictated report to follow See PACS Report for procedural detail/treatment Gio Winston MD Mar 03, 2018 14:56
[2018-03-03] MEDS ORDERED: SODIUM CHLORIDE 0.9% FLUSH 10 ML FLUSH IV FLUSH PRN (15:00)
[2018-03-03] MEDS ORDERED: HEPARIN SODIUM - IV 2,000 UNITS/2 ML VIAL IV FLUSH PRN (15:00)
--- NOTE | 2018-03-03 20:15 | HHI.IDPN ---
Subjective Subjective Remarks Pt was seen in Hemodialysis. Last blood cultures again with coag neg staph 10/18 He remains very confused, does not really talk or follows commands Back non contrasted MRIs w/o acute findings Antibiotics dapto cefazoline Lines PIVs look ok Past Medical History Past Medical History Diabetes Hyperlipidemia Chronic pain syndrome bilateral lower extremity ulcers BPH Hypertension Colon cancer s/p partial colectomy prior NSTEMI severe 2-vessel CAD managed medically old RBBB prior GI bleed anemia secondary to GI bleeding Arthritis CHF, unknown type GERD Past Surgical History partial colectomy skin grafts to right ankle left ankle surgery CABG Allergies: Coded Allergies: No Known Allergies (Unverified , 10/21/17) Objective . Vital Signs Date Time Temp Pulse Resp B/P (MAP) Pulse Ox O2 Delivery O2 Flow Rate FiO2 03/03/18 15:42 93 03/03/18 12:00 97.1 92 16 149/74 (99) 95 03/03/18 11:44 91 03/03/18 08:00 97.9 83 16 144/73 (96) 97 03/03/18 08:00 Nasal Cannula 3.00 30 03/03/18 07:47 81 03/03/18 04:00 98.3 79 18 150/73 (98) 97 03/03/18 03:43 81 03/03/18 00:00 97.6 88 17 166/77 (106) 98 03/02/18 23:43 89 03/03/18 03/03/18 03/04/18 15:00 23:00 07:00 Intake Total 100 ml Output Total 4000 ml Balance 100 ml -4000 ml IV Total 100 ml Hemodialysis 4000 ml . Laboratory Tests Test 03/02/18 08:17 03/03/18 06:54 Blood Urea Nitrogen 93 MG/DL 108 MG/DL Creatinine 7.31 MG/DL 7.96 MG/DL Random Glucose 123 MG/DL 128 MG/DL Calcium Level 8.1 MG/DL 7.9 MG/DL Sodium Level 135 MEQ/L 130 MEQ/L Potassium Level 4.4 MEQ/L 4.9 MEQ/L Chloride Level 94 MEQ/L 89 MEQ/L Carbon Dioxide Level 25.5 MEQ/L 24.8 MEQ/L Anion Gap 16 MEQ/L 16 MEQ/L Estimat Glomerular Filtration Rate 8 ML/MIN 7 ML/MIN Total Creatine Kinase 213 U/L Albumin 2.7 GM/DL Phosphorus Level 9.3 MG/DL Microbiology Date/Time Source Procedure Growth Status 03/01/18 15:53 Blood Peripheral Aerobic Blood Culture - Preliminary NO GROWTH IN 2 DAYS Resulted 03/01/18 15:53 Blood Peripheral Anaerobic Blood Culture - Preliminary NO GROWTH IN 2 DAYS Resulted 03/01/18 15:48 Blood Peripheral Aerobic Blood Culture - Preliminary NO GROWTH IN 2 DAYS Resulted 03/01/18 15:48 Blood Peripheral Anaerobic Blood Culture - Preliminary NO GROWTH IN 2 DAYS Resulted 02/28/18 20:15 Catheter Tip Vas Cath Wound Culture - Final NO GROWTH IN 48 HOURS. Complete Imaging Last Impressions Abdomen X-Ray 03/02/18 0000 Signed Impressions: CONCLUSION: No acute abdominal abnormality is identified. Thoracic Spine MRI 03/01/18 0000 Signed Impressions: CONCLUSION: 1. Examination within normal limits for age. No canal or foraminal stenosis. N o discrete disc protrusion. Lumbar Spine MRI 03/01/18 0000 Signed Impressions: CONCLUSION: 1. At L3-4 there is a superior endplate depression or Schmorl's node at L4 wit h disc bulge and osteophytic ridging resulting in a mild central canal and righ t lateral recess and foraminal stenosis. 2. At L4-5 there is facet arthropathy with mild lateral recess stenosis. 3. No acute fracture. Conus medullaris intact. Neck Magnetic Resonance Angiography 02/28/18 0000 Signed Impressions: CONCLUSION: 1. Smooth mild to moderate stenosis proximal left internal carotid artery. Dif ferential diagnosis includes atherosclerotic plaque formation and arthritis. __ Percent stenosis is calculated using the diameter of the stenotic region over t he diameter of the normal distal internal carotid artery __ Head Magnetic Resonance Angiography 02/28/18 Signed Impressions: CONCLUSION: 1. Examination within normal limits for age. Head CT 02/28/18 Signed Impressions: CONCLUSION: 1. Central and cortical atrophy with periventricular ischemic changes, negativ e for acute process. Brain MRI 02/28/18 Signed Impressions: CONCLUSION: 1. Symmetric atrophy. 2. Mastoiditis. 3. No acute intracranial findings. Chest X-Ray 02/26/18 0600 Signed Impressions: CONCLUSION: No significant interval change with persistent mild patchy left lung base opaci ty. Abdomen/Pelvis CT 02/22/18 Signed Impressions: CONCLUSION: 1. Small bilateral pleural effusions with dependent atelectasis and consolidat ion in both lungs. 2. Mild ileus. Liver Ultrasound 02/17/18 Signed Impressions: CONCLUSION: 1. Hepatomegaly with coarsened liver echotexture. No focal liver lesion is heath ntified. 2. Mild splenomegaly. Catheter Placement X-Ray 02/17/18 Signed Impressions: CONCLUSION: 1. Uncomplicated line placement as above. Foot MRI 02/14/18 Signed Impressions: CONCLUSION: 1. Diffuse subcutaneous edema of the foot with mild enhancement along the dors al aspect of the foot. This could represent cellulitis. No abscess is identifie d and there are no findings to indicate osteomyelitis. 2. There is some degree of osseous fusion at the tibiotalar joint and there is severe degenerative change at the subtalar joint and talonavicular joint. 3. Old healed fracture of the fifth metatarsal. Foot X-Ray 02/13/18 Signed Impressions: CONCLUSION: 1. There is a transverse fracture through the mid fifth metatarsal. Adjacent p eriosteal reaction is present suggesting that it is subacute or chronic. 2. There has been prior arthrodesis of the subtalar joint and tibiotalar joint s with osseous fusion. Hypertrophic osteophytes are present at the talonavicula r joint. Cervical Spine CT 02/12/18 Signed Impressions: CONCLUSION: Unremarkable study except for slight degenerative spondylosis. CT Angiography 02/12/18 Signed Impressions: CONCLUSION: 1. Possible nodules within the thyroid gland mainly on the right side. 2. Slight fatty liver. 3. No definite pulmonary embolus. Physical Exam CONSTITUTIONAL/GENERAL: This is a morbidly obese patient NAD TUBES/LINES/DRAINS: SKIN: No jaundice, rashes, or lesions. Skin temperature appropriate. HEAD: Atraumatic. Normocephalic. EYES: Pupils equal and round and reactive. No scleral icterus. No injection or drainage. Fundi not examined. RESPIRATORY/CHEST: Symmetric, unlabored respirations. Clear to auscultation. Breath sounds equal bilaterally. No wheezes, rales, or rhonchi. GASTROINTESTINAL: Abdomen soft and less distended GENITOURINARY: Without palpable bladder distension. MUSCULOSKELETAL: Extremities without clubbing, cyanosis, Marked generalysed edema. Bilateral LE erythema with induration noted. NEUROLOGICAL: awake, alert non verbal, moaning, not following commands he occasionally has unintlligible speech He waved back PSYCHIATRIC:calm cooperative Assessment & Plan Remarks Severe Sepsis present on admission Mitral valve endocarditis, MSSA MSSA high grade bacteremia. Bilateral LE cellulitis. Ho Rt foot hardware infection MRI w/o e/o osteomyelitis in either feet acute metabolic encephalopathy:sepsis, metabolic. acute resp failure on vent. acute renal failure oliguric: sepsis, meds oxacillin, vanco etc. May end up needing HD. CAD s/p CABG ARF , On HD Persistent coag neg staph bacteremia sp HD catherter removal MS change - neurologist ff Recs: cont Ancef @ reduced dose dc dapto in 2-3 days if last blood clx remians negative ( 7 days of abx post removal) fu CKs weekly while on dapto repeat clx dw Lois Deras RN, MD Mar 03, 2018 20:15
[2018-03-03] MEDS: DAPTOmycin INJ 800 MG in SODIUM CHLORIDE 0.9% INJ 100 ML IV SCH (21:43)
[2018-03-04] VITALS (9 sets, daily range): BP systolic 132–165; BP diastolic 68–83; PULSE 81–102; RESP 17–22; TEMP 97.3–98.1; O2SAT 94–97
[2018-03-04] MEDS: hydrALAZINE HCL 25 MG TAB PO SCH ×3 (02:03→17:43)
[2018-03-04] MEDS: INSULIN NovoLIN REGULAR SUPPLEMENTAL SCALE SQ SCH ×6 (02:03→22:57)
[2018-03-04] MEDS: CHLORHEXIDINE GLUCONATE 2 % 1 PACK (2 CLOTHS) TOP SCH (02:48)
[2018-03-04] MEDS: oxyCODONE/ACETAMINOPHEN 7.5 MG/325 MG TAB PO PRN ×4 (03:44→19:47)
[2018-03-04] MEDS: FOSPHENYTOIN SODIUM 100 MG PE/2 ML VIAL IV SCH ×2 (05:45→17:44)
[2018-03-04] MEDS: CHLORHEXIDINE 0.12% (ORAL KIT) 15 ML CUP MT SCH ×2 (08:00→20:00)
[2018-03-04] MEDS: SENNOSIDES SYRUP 8.8 MG/5 ML CUP PO SCH (08:53)
[2018-03-04] MEDS: DOCUSATE SODIUM 100 MG/10 ML UDC PO SCH (08:53)
[2018-03-04] MEDS: HEPARIN SODIUM - SQ 10,000 UNITS/ML VIAL SQ SCH ×2 (08:54→22:54)
[2018-03-04] MEDS: PANTOPRAZOLE SOD 40 MG DELAYED RELEASE TAB PO SCH (08:54)
[2018-03-04] MEDS: METOPROLOL TARTRATE 25 MG TAB PO SCH ×2 (08:54→22:54)
[2018-03-04] MEDS: INSULIN DETEMIR 100 UNITS/ML VIAL SQ SCH ×2 (08:55→22:56)
[2018-03-04] MEDS: FUROSEMIDE 20 MG/2 ML VIAL IV PUSH SCH ×2 (08:55→22:55)
[2018-03-04] MEDS: ARTIFICIAL TEARS OPTH OINT 3.5 APPLIC/3.5 GM TUBO EACH EYE SCH ×2 (08:55→22:56)
--- NOTE | 2018-03-04 11:00 | HHI.NPPN ---
Subjective History of Present Illness The patient is a 62 yo [place] male with PMHx of DM, CAD, CVA, BPH, HTN, Colon CA, Anemia, GERD, who was brought into this facility on 02/12/18 after brother found him down on the ground at his home for >18hrs. Unclear if he had lost consciousness or the mechanism of his fall as the patient is currently intubated and sedated. Has been diagnosed with MSSA sepsis, but source is not entirely clear. Has hardware in his right ankle but podiatry does not feel that this is the source. Underwent STEF this AM and cardiology is suspicious for mitral valve vegetation, however, formal report is pending. His admitting SCr was 1.32 and has deteriorated to 4.14 at time of consult. He is 10L to the positive and UOP is marginal. Nephrology has been consulted for management of acute renal failure. Appears preserved renal functions predating this admission, with baseline SCr 0.6-0.8 as per Oct 2017 admission. Interval History More alert today. Conversive when spoken to, but does not initiate Sisters present during exam. UOP good Having issues with constipation. MAURI EdmondsonEdelmira replaced 03/03 Sisters inquiring about wound care attention to his feet (Katherine Penaloza) Review of Systems Gastrointestinal Gastrointestinal: Constipation (Katherine Penaloza) Objective Data Data Vital Signs Date Time Temp Pulse Resp B/P (MAP) Pulse Ox O2 Delivery O2 Flow Rate FiO2 03/04/18 08:05 98.1 91 18 150/78 (102) 96 03/04/18 08:00 Nasal Cannula 3.00 03/04/18 08:00 90 03/04/18 04:00 97.6 97 22 150/83 (105) 97 03/04/18 04:00 94 03/04/18 00:00 97.5 102 18 165/80 (108) 96 03/04/18 00:00 Nasal Cannula 3.00 03/04/18 00:00 97.5 102 18 165/80 (108) 96 03/04/18 00:00 95 03/03/18 21:00 Nasal Cannula 3.00 03/03/18 20:37 93 21 03/03/18 20:00 114 03/03/18 20:00 98.7 109 16 153/82 (105) 97 03/03/18 15:42 93 03/03/18 12:00 97.1 92 16 149/74 (99) 95 03/03/18 11:44 91 (Katherine Penaloza) -: 02/28/18 1015 03/03/18 0654 Imaging Last Impressions Abdomen X-Ray 03/02/18 0000 Signed Impressions: CONCLUSION: No acute abdominal abnormality is identified. Thoracic Spine MRI 03/01/18 0000 Signed Impressions: CONCLUSION: 1. Examination within normal limits for age. No canal or foraminal stenosis. N o discrete disc protrusion. Lumbar Spine MRI 03/01/18 0000 Signed Impressions: CONCLUSION: 1. At L3-4 there is a superior endplate depression or Schmorl's node at L4 wit h disc bulge and osteophytic ridging resulting in a mild central canal and righ t lateral recess and foraminal stenosis. 2. At L4-5 there is facet arthropathy with mild lateral recess stenosis. 3. No acute fracture. Conus medullaris intact. Neck Magnetic Resonance Angiography 02/28/18 0000 Signed Impressions: CONCLUSION: 1. Smooth mild to moderate stenosis proximal left internal carotid artery. Dif ferential diagnosis includes atherosclerotic plaque formation and arthritis. __ Percent stenosis is calculated using the diameter of the stenotic region over t he diameter of the normal distal internal carotid artery __ Head Magnetic Resonance Angiography 02/28/18 0000 Signed Impressions: CONCLUSION: 1. Examination within normal limits for age. Head CT 02/28/18 0000 Signed Impressions: CONCLUSION: 1. Central and cortical atrophy with periventricular ischemic changes, negativ e for acute process. Brain MRI 02/28/18 0000 Signed Impressions: CONCLUSION: 1. Symmetric atrophy. 2. Mastoiditis. 3. No acute intracranial findings. Chest X-Ray 02/26/18 0600 Signed Impressions: CONCLUSION: No significant interval change with persistent mild patchy left lung base opaci ty. Abdomen/Pelvis CT 02/22/18 0000 Signed Impressions: CONCLUSION: 1. Small bilateral pleural effusions with dependent atelectasis and consolidat ion in both lungs. 2. Mild ileus. Liver Ultrasound 02/17/18 Signed Impressions: CONCLUSION: 1. Hepatomegaly with coarsened liver echotexture. No focal liver lesion is heath ntified. 2. Mild splenomegaly. Catheter Placement X-Ray 02/17/18 Signed Impressions: CONCLUSION: 1. Uncomplicated line placement as above. Foot MRI 02/14/18 0000 Signed Impressions: CONCLUSION: 1. Diffuse subcutaneous edema of the foot with mild enhancement along the dors al aspect of the foot. This could represent cellulitis. No abscess is identifie d and there are no findings to indicate osteomyelitis. 2. There is some degree of osseous fusion at the tibiotalar joint and there is severe degenerative change at the subtalar joint and talonavicular joint. 3. Old healed fracture of the fifth metatarsal. Foot X-Ray 02/13/18 Signed Impressions: CONCLUSION: 1. There is a transverse fracture through the mid fifth metatarsal. Adjacent p eriosteal reaction is present suggesting that it is subacute or chronic. 2. There has been prior arthrodesis of the subtalar joint and tibiotalar joint s with osseous fusion. Hypertrophic osteophytes are present at the talonavicula r joint. Cervical Spine CT 02/12/18 0000 Signed Impressions: CONCLUSION: Unremarkable study except for slight degenerative spondylosis. CT Angiography 02/12/18 0000 Signed Impressions: CONCLUSION: 1. Possible nodules within the thyroid gland mainly on the right side. 2. Slight fatty liver. 3. No definite pulmonary embolus. Tubes & Lines: Vas-Cath (RIJ) Medication Review Current Medications Medications (Trade) Dose Ordered Sig/Ada Route Start Time Stop Time Status Last Admin (NS Flush) 2 ml UNSCH PRN IV FLUSH 02/12/18 21:45 03/03/18 10:30 ([facility] Nursing Information) 1 [id number] XX 02/13/18 00:00 (Chlorhexidine 2% Cloth) 3 pack Taper DAILY@04 TOP 02/13/18 04:00 02/09/19 03:59 02/27/18 03:16 (Chlorhexidine 2% Cloth) 3 pack UNSCH PRN TOP 02/13/18 00:00 (Dilaudid Pf Inj) 0.2 mg Q4H PRN IV PUSH 02/13/18 09:00 03/01/18 15:44 (Tylenol) 650 mg Q4H PRN PO 02/13/18 10:45 02/27/18 12:45 (Trandate Inj) 20 mg Q2H PRN IV PUSH 02/13/18 11:00 02/27/18 05:13 (Cepacol Extra Sia (Sugar Free)) 1 lozenge Q1H PRN BUCCAL 02/13/18 11:00 02/13/18 11:03 Propofol 100 ml @ 3.66 mls/hr TITRATE PRN IV 02/13/18 19:45 02/19/18 13:45 (Peridex 0.12% Liq) 15 ml BID@08,20 MT 02/14/18 08:00 03/03/18 08:00 Fentanyl Citrate 250 ml @ 5 mls/hr TITRATE PRN IV 02/13/18 21:15 02/19/18 09:08 Sodium Chloride 1,000 ml @ 0 mls/hr Q0M PRN OTHER 02/17/18 11:29 02/28/18 18:50 (Heparin Inj) 8,000 units UNSCH PRN IV FLUSH 02/17/18 11:30 Sodium Chloride 1,000 ml @ 200 mls/hr Q5H PRN IV 02/17/18 11:29 Sodium Chloride 1,000 ml @ 0 mls/hr Q0M PRN OTHER 02/17/18 11:29 Albumin Human 100 ml @ 60 mls/hr UNSCH PRN IV 02/17/18 11:30 02/28/18 18:50 (NS Flush) 5 ml UNSCH PRN IV FLUSH 02/17/18 11:30 (Heparin Inj) UNSCH PRN .XX 02/17/18 11:30 02/22/18 10:29 (Gentamicin Inj) 20 mg UNSCH PRN OTHER 02/17/18 11:30 02/22/18 10:30 (Zofran Odt) 4 mg UNSCH PRN PO 02/17/18 12:00 (Tylenol) 650 mg UNSCH PRN PO 02/17/18 11:30 (Benadryl) 25 mg UNSCH PRN PO 02/17/18 11:30 (Nitrostat Sl) 0.4 mg UNSCH PRN SL 02/17/18 11:30 (Catapres) 0.1 mg UNSCH PRN PO 02/17/18 11:30 02/24/18 03:50 (Gelfoam 12 Mm/7 Mm Top) 1 foam UNSCH PRN TOP 02/17/18 11:30 (NS Flush) UNSCH PRN IV FLUSH 02/17/18 13:30 (Heparin Inj) UNSCH PRN IV FLUSH 02/17/18 13:30 (Senna Liq) 8.8 mg DAILY PO 02/17/18 15:30 03/04/18 08:53 (Colace Liq) 100 mg Q12HR PO 02/17/18 21:00 03/04/18 08:53 (Lopressor) 25 mg Q12HR PO 02/19/18 09:00 03/04/18 08:54 Daptomycin 800 mg/ Sodium Chloride 100 ml @ 200 mls/hr Q48H IV 02/19/18 20:00 03/03/18 21:43 Dexmedetomidine HCl 1000 mcg/ Sodium Chloride 250 ml @ 6.6 mls/hr TITRATE PRN IV 02/19/18 23:30 02/26/18 09:43 (Albuterol Neb) 2.5 mg Q2HR NEB PRN NEB 02/20/18 22:00 (D50w (Vial) Inj) 50 ml UNSCH PRN IV PUSH 02/21/18 10:00 (Glucagon Inj) 1 mg UNSCH PRN OTHER 02/21/18 10:00 (NovoLIN R SUPPLEMENTAL SCALE) 1 Q4H SQ 02/21/18 10:00 03/04/18 08:55 (Lacrilube Opht Oint) 1 applic Q12HR EACH EYE 02/22/18 21:00 03/04/18 08:55 (Apresoline) 75 mg Q8H PO 02/22/18 18:00 03/04/18 08:54 (Lasix Inj) 80 mg BID IV PUSH 02/23/18 21:00 03/04/18 08:55 (Levemir Inj) 20 units Q12HR SQ 02/24/18 09:00 03/04/18 08:55 (Heparin Inj) 5,000 units Q12HR SQ 02/24/18 09:00 03/04/18 08:54 (Cerebyx Inj) 200 mgpe Q12H IV 03/01/18 06:00 03/04/18 05:45 (Percocet 7.5-325 Mg) 1 tab Q4H PRN PO 03/01/18 13:30 03/04/18 08:54 Cefazolin Sodium 1000 mg/Sodium Chloride 100 ml @ 200 mls/hr Q24H IV 03/03/18 14:00 03/03/18 13:33 (Zofran Odt) 4 mg Q6H PRN PO 03/01/18 18:15 03/02/18 18:21 (Protonix) 40 mg DAILY PO 03/04/18 09:00 03/04/18 08:54 (NS Flush) UNSCH PRN IV FLUSH 03/03/18 15:00 (Heparin Inj) UNSCH PRN IV FLUSH 03/03/18 15:00 (Katherine Penaloza) Physical Exam General Appearance: Comfortable, Obese (Katherine Penaloza) Eyes Eye Exam: Sclera White (Katherine Penaloza) Neck Neck Exam: Trachea Midline (Katherine Penaloza) Pulmonary Resp Exam: Clear Bilaterally, Breath Sounds Equal, Decreased Bases (Katherine Penaloza) Cardiology CV Exam: Regular, Normal Sinus Rhythm (Katherine Penaloza) Gastrointestinal/Abdomen GI Exam: Soft, Non-Tender (Katherine Penaloza) Integumentary Skin Exam: Clear, Warm Skin Remarks L ankle wrapped. Bilat feet in soft boots. Medial L ankle erythematous (Katherine Penaloza) Extremeties Extremities Exam: No Edema (Katherine Penaloza) Assessment/Plan Problem List: (1) Acute renal failure ICD Codes: N17.9 - Acute kidney failure, unspecified Status: Chronic Plan: Labs pending today Tentative next HD 6/20 depending on labs. UOP quite good When clear with infectious disease patient is still dialysis dependent will convert Vas-Cath to hemodialysis PermCath in preparation for potential discharge. No evidence of significant renal recovery at this time as discussed with his sisters by the bedside. Medications should be adjusted for the patient's renal decline. Avoid nephrotoxic medications such as iodinated contrast dyes and NSAIDs. Avoid gadolinium. (2) Sepsis ICD Codes: A41.9 - Sepsis, unspecified organism Status: Resolved (3) Rhabdomyolysis ICD Codes: M62.82 - Rhabdomyolysis Status: Resolved Plan: Resolved (4) Adrenal nodule ICD Codes: E27.9 - Disorder of adrenal gland, unspecified Plan: Incidentally noted on CT scan. 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 (6) Ankle ulcer ICD Codes: L97.309 - Non-pressure chronic ulcer of unspecified ankle with unspecified severity Plan: Discussed with RN Ordered Wound Care if OK'd by primary (Katherine Penaloza) Plan The exam, history, and the medical decision-making described in the above note were completed with the assistance of the PA-C. I reviewed and agree with the findings presented. (Jeffy Brewer MD) Problem Qualifiers (1) Rhabdomyolysis: Qualified Codes: T79.6XXA - Traumatic ischemia of muscle, initial encounter Katherine Penaloza Mar 04, 2018 11:00 Jeffy Brewer MD Mar 07, 2018 16:56
[2018-03-04 11:27] LABS: BICARBONATE 23.8 MEQ/L (21.0-32.0); CALCIUM 8.5 MG/DL (8.5-10.1); CREATININE 6.02 MG/DL (0.60-1.30)
--- NOTE | 2018-03-04 13:44 | HHI.PR ---
Subjective Remarks More alert today Family is concerned about wound on right lower extremity will consult wound care will need SNF at discharge A.m. labs Discussed with RN and case management and family Having constipation Objective Vitals Vital Signs Date Time Temp Pulse Resp B/P (MAP) Pulse Ox O2 Delivery O2 Flow Rate FiO2 03/04/18 12:03 97.8 81 18 132/68 (89) 96 03/04/18 08:05 98.1 91 18 150/78 (102) 96 03/04/18 08:00 Nasal Cannula 3.00 03/04/18 08:00 90 03/04/18 04:00 97.6 97 22 150/83 (105) 97 03/04/18 04:00 94 03/04/18 00:00 97.5 102 18 165/80 (108) 96 03/04/18 00:00 Nasal Cannula 3.00 03/04/18 00:00 97.5 102 18 165/80 (108) 96 03/04/18 00:00 95 03/03/18 21:00 Nasal Cannula 3.00 03/03/18 20:37 93 21 03/03/18 20:00 114 03/03/18 20:00 98.7 109 16 153/82 (105) 97 03/03/18 15:42 93 I/O 03/03/18 03/03/18 03/03/18 03/04/18 03/04/18 03/04/18 06:59 14:59 22:59 06:59 14:59 22:59 Intake Total 240 ml 100 ml 240 ml Output Total 4000 ml Balance 240 ml 100 ml -4000 ml 240 ml Intake Oral 240 ml 240 ml IV Total 100 ml Hemodialysis 4000 ml # Voids 2 3 # Bowel Movements 0 Result Diagram: 02/28/18 1015 03/04/18 0436 Other Results Laboratory Tests Test 03/01/18 15:53 03/02/18 08:17 03/03/18 06:54 03/04/18 04:36 Blood Urea Nitrogen 80 MG/DL 93 MG/DL 108 MG/DL 68 MG/DL Creatinine 6.36 MG/DL 7.31 MG/DL 7.96 MG/DL 6.02 MG/DL Random Glucose 239 MG/DL 123 MG/DL 128 MG/DL 200 MG/DL Calcium Level 8.5 MG/DL 8.1 MG/DL 7.9 MG/DL 8.5 MG/DL Sodium Level 134 MEQ/L 135 MEQ/L 130 MEQ/L 132 MEQ/L Potassium Level 3.8 MEQ/L 4.4 MEQ/L 4.9 MEQ/L 4.6 MEQ/L Chloride Level 94 MEQ/L 94 MEQ/L 89 MEQ/L 92 MEQ/L Carbon Dioxide Level 24.7 MEQ/L 25.5 MEQ/L 24.8 MEQ/L 23.8 MEQ/L Anion Gap 15 MEQ/L 16 MEQ/L 16 MEQ/L 16 MEQ/L Estimat Glomerular Filtration Rate 9 ML/MIN 8 ML/MIN 7 ML/MIN 10 ML/MIN Total Creatine Kinase 213 U/L Phenytoin (Dilantin) Level 4.0 MCG/ML 9.8 MCG/ML 2.2 MCG/ML Albumin 2.7 GM/DL Phosphorus Level 9.3 MG/DL Imaging Last Impressions Abdomen X-Ray 03/02/18 0000 Signed Impressions: CONCLUSION: No acute abdominal abnormality is identified. Thoracic Spine MRI 03/01/18 0000 Signed Impressions: CONCLUSION: 1. Examination within normal limits for age. No canal or foraminal stenosis. N o discrete disc protrusion. Lumbar Spine MRI 03/01/18 0000 Signed Impressions: CONCLUSION: 1. At L3-4 there is a superior endplate depression or Schmorl's node at L4 wit h disc bulge and osteophytic ridging resulting in a mild central canal and righ t lateral recess and foraminal stenosis. 2. At L4-5 there is facet arthropathy with mild lateral recess stenosis. 3. No acute fracture. Conus medullaris intact. Neck Magnetic Resonance Angiography 02/28/18 0000 Signed Impressions: CONCLUSION: 1. Smooth mild to moderate stenosis proximal left internal carotid artery. Dif ferential diagnosis includes atherosclerotic plaque formation and arthritis. __ Percent stenosis is calculated using the diameter of the stenotic region over t he diameter of the normal distal internal carotid artery __ Head Magnetic Resonance Angiography 02/28/18 Signed Impressions: CONCLUSION: 1. Examination within normal limits for age. Head CT 02/28/18 0000 Signed Impressions: CONCLUSION: 1. Central and cortical atrophy with periventricular ischemic changes, negativ e for acute process. Brain MRI 02/28/18 0000 Signed Impressions: CONCLUSION: 1. Symmetric atrophy. 2. Mastoiditis. 3. No acute intracranial findings. Chest X-Ray 02/26/18 0600 Signed Impressions: CONCLUSION: No significant interval change with persistent mild patchy left lung base opaci ty. Abdomen/Pelvis CT 02/22/18 0000 Signed Impressions: CONCLUSION: 1. Small bilateral pleural effusions with dependent atelectasis and consolidat ion in both lungs. 2. Mild ileus. Liver Ultrasound 02/17/18 Signed Impressions: CONCLUSION: 1. Hepatomegaly with coarsened liver echotexture. No focal liver lesion is heath ntified. 2. Mild splenomegaly. Catheter Placement X-Ray 02/17/18 Signed Impressions: CONCLUSION: 1. Uncomplicated line placement as above. Foot MRI 02/14/18 0000 Signed Impressions: CONCLUSION: 1. Diffuse subcutaneous edema of the foot with mild enhancement along the dors al aspect of the foot. This could represent cellulitis. No abscess is identifie d and there are no findings to indicate osteomyelitis. 2. There is some degree of osseous fusion at the tibiotalar joint and there is severe degenerative change at the subtalar joint and talonavicular joint. 3. Old healed fracture of the fifth metatarsal. Foot X-Ray 02/13/18 0000 Signed Impressions: CONCLUSION: 1. There is a transverse fracture through the mid fifth metatarsal. Adjacent p eriosteal reaction is present suggesting that it is subacute or chronic. 2. There has been prior arthrodesis of the subtalar joint and tibiotalar joint s with osseous fusion. Hypertrophic osteophytes are present at the talonavicula r joint. Cervical Spine CT 02/12/18 0000 Signed Impressions: CONCLUSION: Unremarkable study except for slight degenerative spondylosis. CT Angiography 02/12/18 0000 Signed Impressions: CONCLUSION: 1. Possible nodules within the thyroid gland mainly on the right side. 2. Slight fatty liver. 3. No definite pulmonary embolus. Objective Remarks GENERAL: SKIN: Warm and dry. HEAD: Atraumatic. Normocephalic. EYES: Pupils equal and round. No scleral icterus. No injection or drainage. ENT: No nasal bleeding or discharge. Mucous membranes pink and moist. NECK: Trachea midline. No JVD. CARDIOVASCULAR: Regular rate and rhythm. RESPIRATORY: No accessory muscle use. Clear to auscultation. Breath sounds equal bilaterally. GASTROINTESTINAL: Abdomen soft, non-tender, nondistended. Hepatic and splenic margins not palpable. MUSCULOSKELETAL: Extremities without clubbing, cyanosis, or edema. No obvious deformities. NEUROLOGICAL: Awake and alert. No obvious cranial nerve deficits. Motor grossly within normal limits. Five out of 5 muscle strength in the arms and legs. Normal speech. PSYCHIATRIC: Appropriate mood and affect; insight and judgment normal. Procedures (1) Acute renal failure Post Procedure Diagnosis: (1) Acute renal failure Procedure Date: Mar 03, 2018 Supervising Radiologist: Gio Winston Estimated blood loss: 3cc Anesthesia: Local Plan of Activity Patient to Unit: Nursing Unit Patient Condition: Poor Additional Comments: Right Ij vascath placed without difficulty. catheter in good position OK for use. Full dictated report to follow See PACS Report for procedural detail/treatment Gio Winston MD Mar 03, 2018 14:56 Medications and IVs Current Medications Sodium Chloride (NS Flush) 2 ml UNSCH PRN IV FLUSH FLUSH AFTER USING IV ACCESS Last administered on 03/03/18at 10:30; Start 02/12/18 at 21:45 Sodium Chloride 1,000 ml @ 999 mls/hr BOLUS ONCE IV Last administered on 02/12at 21:58; Start 02/12/18 at 21:45; Stop 02/12/18 at 22:45; Status DC Metoclopramide HCl (Reglan Inj) 10 mg ONCE ONCE IV PUSH Last administered on at 22:05; Start 02/12/18 at 21:45; Stop 02/12/18 at 21:46; Status DC Acetaminophen (Tylenol Supp) 650 mg ONCE ONCE RECTAL Last administered on 02/12at 21:58; Start 02/12/18 at 21:45; Stop 02/12/18 at 21:46; Status DC Piperacillin Sod/ Tazobactam Sod 100 ml @ 200 mls/hr ONCE ONCE IV Last administered on 02/12/18at 22:06; Start 02/12/18 at 21:45; Stop 02/12/18 at 22:14 ; Status DC Nitroglycerin (Nitroglycerin 2% Oint) 1 inch ONCE ONCE TOPICAL Last administered on 02/12/18at 22:49; Start 02/12/18 at 22:45; Stop 02/12/18 at 22:46 ; Status DC Furosemide (Lasix Inj) 40 mg ONCE ONCE IV PUSH ; Start 02/12/18 at 22:45; Stop 02/12/18 at 22:45; Status DC Hydromorphone HCl (Dilaudid Pf Inj) 1 mg ONCE ONCE IV PUSH Last administered on 02/12/18at 23:30; Start 02/12/18 at 23:00; Stop 02/12/18 at 23:01; Status DC Iohexol (Omnipaque 350 Inj) 100 ml STK-MED ONCE IVCONTRAST Last administered on 02/12/18at 23:32; Start 02/12/18 at 23:32; Stop 02/12/18 at 23:33; Status DC Sodium Chloride 1,000 ml @ 999 mls/hr BOLUS ONCE IV Last administered on 02/12at 23:57; Start 02/12/18 at 23:45; Stop 02/13/18 at 00:45; Status DC Pantoprazole Sodium (Protonix Inj) 40 mg ONCE ONCE IV PUSH Last administered on 02/12/18at 23:58; Start 02/12/18 at 23:45; Stop 02/12/18 at 23:46; Status DC Aspirin (Aspirin Chew) 162 mg ONCE ONCE CHEW Last administered on 02/13/18at 00 :19; Start 02/13/18 at 00:00; Stop 02/13/18 at 00:01; Status DC Lactated Ringer's 1,000 ml @ 150 mls/hr Q6H40M IV Last administered on at 21:20; Start 02/13/18 at 00:00; Stop 02/13/18 at 22:00; Status DC Potassium Chloride 100 ml @ 50 mls/hr Q2H PRN IV For Potassium 2.8 - 3.2 mEq/L ; Start 02/13/18 at 00:00; Stop 02/15/18 at 13:50; Status DC Potassium Chloride 100 ml @ 50 mls/hr Q2H PRN IV For Potassium 2.8 - 3.2 mEq/ L Last administered on 02/13/18at 17:08; Start 02/13/18 at 00:00; Stop 02/15/18 at 13:50; Status DC Potassium Bicarb/ Potassium Chloride (K-Lyte Cl Eff) 50 meq UNSCH PRN PO For Potassium 3.3 - 3.5 mEq/L; Start 02/13/18 at 00:00; Stop 02/15/18 at 13:50; Status DC Potassium Chloride 100 ml @ 25 mls/hr UNSCH PRN IV For Potassium 3.3 - 3.5 mEq /L; Start 02/13/18 at 00:00; Stop 02/15/18 at 13:50; Status DC Potassium Chloride 100 ml @ 50 mls/hr Q2H PRN IV For Potassium 3.3 - 3.5 mEq/L ; Start 02/13/18 at 00:00; Stop 02/15/18 at 13:50; Status DC Magnesium Sulfate 4 gm/Sodium Chloride 100 ml @ 50 mls/hr UNSCH PRN IV For Magnesium 0.9 - 1.1 mg/dL; Start 02/13/18 at 00:00; Stop 02/15/18 at 13:50; Status DC Magnesium Oxide (Mag-Ox) 800 mg UNSCH PRN PO For Magnesium 1.2 - 1.6 mg/dL; Start 02/13/18 at 00:00; Stop 02/15/18 at 13:50; Status DC Magnesium Sulfate 2 gm/Sodium Chloride 100 ml @ 50 mls/hr UNSCH PRN IV For Magnesium 1.2 - 1.6 mg/dL; Start 02/13/18 at 00:00; Stop 02/15/18 at 13:50; Status DC Potassium Phosphate (K-Phos) 2,000 mg Q4H PRN PO For Phosphorus < 2.5 mg/dL; Start 02/13/18 at 00:00; Stop 02/15/18 at 13:50; Status DC Sodium Phosphate 30 mmol/Sodium Chloride 250 ml @ 42 mls/hr UNSCH PRN IV For Phosphorus < 2.5 mg/dL; Start 02/13/18 at 00:00; Stop 02/15/18 at 13:50; Status DC Potassium Phosphate (K-Phos) 2,000 mg UNSCH PRN PO/TUBE SEE LABEL COMMENTS; Start 02/13/18 at 00:00; Stop 02/15/18 at 13:50; Status DC Potassium Phosphate 30 mmol/ Sodium Chloride 260 ml @ 42 mls/hr UNSCH PRN IV SEE LABEL COMMENTS; Start 02/13/18 at 00:00; Stop 02/15/18 at 13:50; Status DC Dextrose (D50w (Vial) Inj) 25 ml UNSCH PRN IV PUSH HYPOGLYCEMIA-SEE COMMENTS; Start 02/13/18 at 00:00; Stop 02/13/18 at 12:14; Status DC Insulin Human Regular (NovoLIN R SUPPLEMENTAL SCALE) 1 ACHS AND 3AM SQ Last administered on 02/13/18at 08:00; Start 02/13/18 at 03:00; Stop 02/13/18 at 12:04 ; Status DC Albuterol/ Ipratropium (Duoneb Neb) 1 ampule Q6HR NEB INH Last administered on 02/13/18at 08:08; Start 02/13/18 at 04:00; Stop 02/13/18 at 11:51; Status DC Albuterol/ Ipratropium (Duoneb Neb) 1 ampule Q2HR NEB PRN INH WHEEZING Last administered on 02/18/18at 15:50; Start 02/13/18 at 00:00; Stop 02/20/18 at 21:56; Status DC Pantoprazole Sodium (Protonix Inj) 40 mg DAILY IV PUSH Last administered on at 10:30; Start 02/13/18 at 09:00; Stop 03/03/18 at 23:59; Status DC Miscellaneous Information ([facility] Nursing Information) 1 [id number] XX ; Start at 00:00 Chlorhexidine Gluconate (Chlorhexidine 2% Cloth) 3 pack Taper DAILY@04 TOP Last administered on 02/27/18at 03:16; Start 02/13/18 at 04:00; Stop 02/09/19 at 03:59 Chlorhexidine Gluconate (Chlorhexidine 2% Cloth) 3 pack UNSCH PRN TOP HYGIENIC CARE; Start 02/13/18 at 00:00 Piperacillin Sod/ Tazobactam Sod 50 ml @ 100 mls/hr Q6H IV Last administered on 02/13/18at 09:56; Start 02/13/18 at 04:00; Stop 02/13/18 at 13:40; Status DC Heparin Sodium (Porcine) (Heparin Inj) 5,000 units Q8HR SQ Last administered on 02/20/18at 21:52; Start 02/13/18 at 06:00; Stop 02/21/18 at 02:20; Status DC Pharmacy Profile Note 0 ml @ 0 mls/hr UNSCH OTHER ; Start 02/13/18 at 04:30; Stop 02/14/18 at 09:10; Status DC Vancomycin HCl 1250 mg/Sodium Chloride 262.5 ml @ 250 mls/hr ONCE ONCE IV Last administered on 02/13/18at 05:24; Start 02/13/18 at 04:30; Stop 02/13/18 at 05:32; Status DC Vancomycin HCl 1000 mg/Sodium Chloride 250 ml @ 250 mls/hr ONCE ONCE IV Last administered on 02/13/18at 08:46; Start 02/13/18 at 07:15; Stop 02/13/18 at 08:14 ; Status DC Vancomycin HCl 2000 mg/Sodium Chloride 520 ml @ 250 mls/hr Q24H IV Last administered on 02/14/18at 05:00; Start 02/14/18 at 06:00; Stop 02/14/18 at 09:10; Status DC Miscellaneous Information ([facility] Pharm[facility] Ordered Lab Info) SPECIFIC LAB TO BE ... ONCE ONCE .XX ; Start 02/16/18 at 05:45; Stop 02/16/18 at 05:45; Status DC Oxycodone HCl (Roxicodone) 5 mg Q4H PRN PO pain 1-5 Last administered on at 11:58; Start 02/13/18 at 09:00; Stop 03/01/18 at 13:22; Status DC Hydromorphone HCl (Dilaudid Pf Inj) 0.2 mg Q4H PRN IV PUSH pain 6-10 or not taking po Last administered on 03/01/18at 15:44; Start 02/13/18 at 09:00 Acetaminophen (Tylenol) 650 mg Q4H PRN PO temp greater than 101 Last administered on 02/27/18at 12:45; Start 02/13/18 at 10:45 Labetalol HCl (Trandate Inj) 20 mg Q2H PRN IV PUSH SBP > 160 Last administered on 02/27/18at 05:13; Start 02/13/18 at 11:00 Guaifenesin (Mucinex Er) 600 mg BID PO Last administered on 02/22/18at 08:54; Start 02/13/18 at 11:00; Stop 02/22/18 at 15:52; Status DC Benzocaine/Menthol (Cepacol Extra Sia (Sugar Free)) 1 lozenge Q1H PRN BUCCAL COUGH Last administered on 02/13/18at 11:03; Start 02/13/18 at 11:00 Diphenhydramine HCl (Benadryl Inj) 25 mg ONCE ONCE IV PUSH Last administered on 02/13/18at 12:00; Start 02/13/18 at 12:00; Stop 02/13/18 at 12:01; Status DC Albuterol/ Ipratropium (Duoneb Neb) 1 ampule Q4HR NEB INH Last administered on 02/17/18at 10:54; Start 02/13/18 at 12:00; Stop 02/17/18 at 11:59; Status DC Insulin Aspart (NovoLOG SUPPLEMENTAL SCALE) 1 Q6HR SQ Last administered on at 05:38; Start 02/13/18 at 12:15; Stop 02/21/18 at 09:57; Status DC Dextrose (D50w (Syr) Inj) 50 ml UNSCH PRN IV PUSH HYPOGLYCEMIA-SEE COMMENTS; Start 02/13/18 at 12:15; Stop 02/21/18 at 10:02; Status DC Glucagon (Glucagon Inj) 1 mg UNSCH PRN OTHER HYPOGLYCEMIA-SEE COMMENTS; Start 02/13/18 at 12:15; Stop 02/21/18 at 10:02; Status DC Lorazepam (Ativan Inj) 2 mg STK-MED ONCE .ROUTE ; Start 02/13/18 at 12:47; Stop 02/13/18 at 12:48; Status DC Lorazepam (Ativan Inj) 1 mg NOW ONCE IV PUSH Last administered on 02/13/18at 13 :15; Start 02/13/18 at 13:15; Stop 02/13/18 at 13:16; Status DC Lorazepam (Ativan Inj) 1 mg ONCE ONCE IV PUSH Last administered on 02/13/18at 13:15; Start 02/13/18 at 13:15; Stop 02/13/18 at 13:16; Status DC Furosemide (Lasix Inj) 40 mg STAT ONCE IV PUSH Last administered on 02/13/18at 15:29; Start 02/13/18 at 15:30; Stop 02/13/18 at 15:31; Status DC Succinylcholine Chloride (Quelicin Inj) 100 mg ONCE ONCE IV Last administered on 02/13/18at 21:20; Start 02/13/18 at 20:00; Stop 02/13/18 at 20:01; Status DC Propofol 100 ml @ 3.66 mls/hr TITRATE PRN IV SEDATION Last administered on 02/19at 13:45; Start 02/13/18 at 19:45 Chlorhexidine Gluconate (Peridex 0.12% Liq) 15 ml BID@08,20 MT Last administered on 03/03/18at 08:00; Start 02/14/18 at 08:00 Fentanyl Citrate 250 ml @ 5 mls/hr TITRATE PRN IV SEDATION Last administered on 02/19/18at 09:08; Start 02/13/18 at 21:15 Sodium Bicarbonate 150 meq/Dextrose 1,150 ml @ 100 mls/hr [id number] IV Last administered on 02/16/18at 08:59; Start 02/13/18 at 22:00; Stop 02/16/18 at 09:14; Status DC Oxacillin Sodium 2 gm/Sodium Chloride 100 ml @ 200 mls/hr Q4H IV Last administered on 02/16/18at 07:51; Start 02/14/18 at 10:00; Stop 02/16/18 at 10:43; Status DC Gadodiamide (Omniscan Pf Inj) 20 ml STK-MED ONCE IVCONTRAST Last administered on 02/14/18at 18:42; Start 02/14/18 at 18:40; Stop 02/14/18 at 18:41; Status DC Ceftaroline Fosamil 300 mg/ Sodium Chloride 100 ml @ 100 mls/hr Q8H IV Last administered on 02/19/18at 14:26; Start 02/16/18 at 12:00; Stop 02/19/18 at 18:12; Status DC Cefazolin Sodium/ Dextrose 50 ml @ 100 mls/hr Q8H IV ; Start 02/16/18 at 11:00; Status Cancel Cefazolin Sodium/ Dextrose 50 ml @ 100 mls/hr Q12H IV Last administered on at 12:03; Start 02/16/18 at 13:00; Stop 03/01/18 at 13:56; Status DC Furosemide (Lasix Inj) 40 mg ONCE ONCE IV PUSH Last administered on 02/16/18at 15:23; Start 02/16/18 at 15:00; Stop 02/16/18 at 15:01; Status DC Furosemide (Lasix Inj) 40 mg ONCE ONCE IV PUSH Last administered on 02/17/18at 08:33; Start 02/17/18 at 07:00; Stop 02/17/18 at 07:09; Status DC Sodium Chloride 1,000 ml @ 0 mls/hr Q0M PRN OTHER For Prime & Rinse Back Last administered on 02/28/18at 18:50; Start 02/17/18 at 11:29 Heparin Sodium (Porcine) (Heparin Inj) 8,000 units UNSCH PRN IV FLUSH WITH DIALYSIS; Start 02/17/18 at 11:30 Sodium Chloride 1,000 ml @ 200 mls/hr Q5H PRN IV WITH DIALYSIS; Start 02/17/18 at 11:29 Sodium Chloride 1,000 ml @ 0 mls/hr Q0M PRN OTHER WITH DIALYSIS; Start 02/17/18 at 11:29 Albumin Human 100 ml @ 60 mls/hr UNSCH PRN IV WITH DIALYSIS Last administered on 02/28/18at 18:50; Start 02/17/18 at 11:30 Sodium Chloride (NS Flush) 5 ml UNSCH PRN IV FLUSH WITH DIALYSIS; Start at 11:30 Heparin Sodium (Porcine) (Heparin Inj) UNSCH PRN .XX WITH DIALYSIS Last administered on 02/22/18at 10:29; Start 02/17/18 at 11:30 Gentamicin Sulfate (Gentamicin Inj) 20 mg UNSCH PRN OTHER WITH DIALYSIS Last administered on 02/22/18at 10:30; Start 02/17/18 at 11:30 Ondansetron HCl (Zofran Odt) 4 mg UNSCH PRN PO WITH DIALYSIS; Start 02/17/18 at 12:00 Acetaminophen (Tylenol) 650 mg UNSCH PRN PO for headach, pain, temp > 101F; Start 02/17/18 at 11:30 Diphenhydramine HCl (Benadryl) 25 mg UNSCH PRN PO for hives/itching/anaphylaxis ; Start 02/17/18 at 11:30 Nitroglycerin (Nitrostat Sl) 0.4 mg UNSCH PRN SL CHEST PAIN; Start 02/17/18 at 11:30 Clonidine (Catapres) 0.1 mg UNSCH PRN PO for BP > 180/100 X 2 readings Last administered on 02/24/18at 03:50; Start 02/17/18 at 11:30 Gelatin (Gelfoam 12 Mm/7 Mm Top) 1 foam UNSCH PRN TOP SEE LABEL COMMENTS; Start 02/17/18 at 11:30 Heparin Sodium (Porcine) (*HEPARIN INJ Periprocedural ONLY) 10,000 units STK- MED ONCE .ROUTE Last administered on 02/17/18at 13:15; Start 02/17/18 at 13:02; Stop 02/17/18 at 13:03; Status DC Sodium Chloride (NS Flush) UNSCH PRN IV FLUSH SEE PROTOCOL; Start 02/17/18 at 13:30 Heparin Sodium (Porcine) (Heparin Inj) UNSCH PRN IV FLUSH SEE PROTOCOL; Start 02/17/18 at 13:30 Sennosides (Senna Liq) 8.8 mg DAILY PO Last administered on 03/04/18at 08:53; Start 02/17/18 at 15:30 Docusate Sodium (Colace Liq) 100 mg Q12HR PO Last administered on 03/04/18at 08: 53; Start 02/17/18 at 21:00 Insulin Detemir (Levemir Inj) 5 units Q12HR SQ Last administered on 02/19/18at 01 :01; Start 02/18/18 at 09:00; Stop 02/19/18 at 08:04; Status DC Insulin Detemir (Levemir Inj) 10 units Q12HR SQ Last administered on 02/20/18at 07:59; Start 02/19/18 at 09:00; Stop 02/20/18 at 12:31; Status DC Metoprolol Tartrate (Lopressor) 25 mg Q12HR PO Last administered on 03/04/18at 08:54; Start 02/19/18 at 09:00 Dexmedetomidine HCl 200 mcg/ Sodium Chloride 50 ml @ 6.6 mls/hr TITRATE PRN IV Desired RASS Last administered on 02/19/18at 23:01; Start 02/19/18 at 11:00; Stop 02/19/18 at 23:07; Status DC Furosemide (Lasix Inj) 80 mg DAILY IV PUSH Last administered on 02/23/18at 08:39 ; Start 02/19/18 at 17:00; Stop 02/23/18 at 14:11; Status DC Daptomycin 800 mg/ Sodium Chloride 100 ml @ 200 mls/hr Q48H IV Last administered on 03/03/18at 21:43; Start 02/19/18 at 20:00 Aztreonam 500 mg/ Sodium Chloride 100 ml @ 200 mls/hr Q6H IV Last administered on 02/22/18at 15:39; Start 02/19/18 at 21:00; Stop 02/22/18 at 18:52; Status DC Micafungin Sodium 150 mg/Sodium Chloride 100 ml @ 100 mls/hr Q24H IV Last administered on 02/21/18at 21:16; Start 02/19/18 at 22:00; Stop 02/22/18 at 18:52; Status DC Dexmedetomidine HCl 1000 mcg/ Sodium Chloride 250 ml @ 6.6 mls/hr TITRATE PRN IV Desired RASS Last administered on 02/26/18at 09:43; Start 02/19/18 at 23:30 Insulin Detemir (Levemir Inj) 14 units Q12HR SQ Last administered on 02/21/18at 08:09; Start 02/20/18 at 21:00; Stop 02/21/18 at 09:57; Status DC Albuterol/ Ipratropium (Duoneb Neb) 1 ampule Q6HR NEB NEB Last administered on 02/24/18at 19:47; Start 02/20/18 at 22:00; Stop 02/24/18 at 21:59; Status DC Albuterol Sulfate (Albuterol Neb) 2.5 mg Q2HR NEB PRN NEB dyspnea; Start at 22:00 Insulin Detemir (Levemir Inj) 18 units Q12HR SQ Last administered on 02/23/18at 21:00; Start 02/21/18 at 10:00; Stop 02/24/18 at 08:43; Status DC Dextrose (D50w (Vial) Inj) 50 ml UNSCH PRN IV PUSH HYPOGLYCEMIA-SEE COMMENTS; Start 02/21/18 at 10:00 Glucagon (Glucagon Inj) 1 mg UNSCH PRN OTHER HYPOGLYCEMIA-SEE COMMENTS; Start 02/21/18 at 10:00 Insulin Human Regular (NovoLIN R SUPPLEMENTAL SCALE) 1 Q4H SQ Last administered on 03/04/18at 13:07; Start 02/21/18 at 10:00 Hydralazine HCl (Apresoline) 50 mg Q8H PO Last administered on 02/22/18at 08:54; Start 02/21/18 at 10:00; Stop 02/22/18 at 15:52; Status DC Artificial Tears (Lacrilube Opht Oint) 1 applic Q12HR EACH EYE Last administered on 03/04/18at 08:55; Start 02/22/18 at 21:00 Diatrizoate Meglum/ Diatrizoate Sod ( Gastroview Liq) 18 ml ONCE ONCE PO Last administered on 02/22/18at 17:04; Start 02/22/18 at 16:00; Stop 02/22/18 at 16: 01; Status DC Hydralazine HCl (Apresoline) 75 mg Q8H PO Last administered on 03/04/18at 08:54 ; Start 02/22/18 at 18:00 Furosemide (Lasix Inj) 80 mg BID IV PUSH Last administered on 03/04/18at 08:55; Start 02/23/18 at 21:00 Metoclopramide HCl (Reglan Inj) 5 mg Q8H IV Last administered on 03/01/18at 12: 03; Start 02/23/18 at 21:00; Stop 03/01/18 at 13:15; Status DC Insulin Detemir (Levemir Inj) 20 units Q12HR SQ Last administered on 03/04/18 08:55; Start 02/24/18 at 09:00 Heparin Sodium (Porcine) (Heparin Inj) 5,000 units Q12HR SQ Last administered on 03/04/18 08:54; Start 02/24/18 at 09:00 Methylnaltrexone Pitcher (Relistor Inj) 12 mg ONCE ONCE SQ Last administered on 02/24/18at 11:24; Start 02/24/18 at 10:00; Stop 02/24/18 at 10:01; Status DC Fosphenytoin Sodium (Cerebyx Inj) 200 mgpe Q12H IV Last administered on 05:45; Start 03/01/18 at 06:00 Fosphenytoin Sodium 1000 mgpe/ Sodium Chloride 70 ml @ 280 mls/hr ONCE ONCE IV Last administered on 02/28/18at 22:40; Start 02/28/18 at 18:00; Stop at 18:14; Status DC Chlorothiazide Sodium (Diuril Inj) 500 mg ONCE ONCE IV Last administered on at 15:41; Start 03/01/18 at 13:15; Stop 03/01/18 at 13:19; Status DC Oxycodone/ Acetaminophen (Percocet 7.5-325 Mg) 1 tab Q4H PRN PO PAIN SCALE 5 TO 10 Last administered on 03/04/18 08:54; Start 03/01/18 at 13:30 Cefazolin Sodium 1000 mg/Sodium Chloride 100 ml @ 200 mls/hr Q24H IV Last administered on 03/04/18at 13:09; Start 03/03/18 at 14:00 Ondansetron HCl (Zofran Odt) 4 mg Q6H PRN PO NAUSEA Last administered on 18:21; Start 03/01/18 at 18:15 Chlorothiazide Sodium (Diuril Inj) 500 mg ONCE ONCE IV Last administered on at 12:54; Start 03/02/18 at 12:30; Stop 03/02/18 at 12:31; Status DC Pantoprazole Sodium (Protonix) 40 mg DAILY PO Last administered on 03/04/18at 08 :54; Start 03/04/18 at 09:00 Heparin Sodium (Porcine) (*HEPARIN INJ Periprocedural ONLY) 10,000 units STK- MED ONCE .ROUTE Last administered on 03/03/18at 14:50; Start 03/03/18 at 14:36; Stop 03/03/18 at 14:37; Status DC Sodium Chloride (NS Flush) UNSCH PRN IV FLUSH SEE PROTOCOL; Start 03/03/18 at 15:00 Heparin Sodium (Porcine) (Heparin Inj) UNSCH PRN IV FLUSH SEE PROTOCOL; Start 03/03/18 at 15:00 Date of Insertion: February 13, 2018 A/P Assessment and Plan 62 years old Acute SZ episode Metabolic encephalopathy - Head CT/MRI negative - neuro check q 4 - Neurology ff Dr. Rutherford - on IV Cerebryx Severe Sepsis present on admission Mitral valve endocarditis, MSSA MSSA high grade bacteremia. Bilateral LE cellulitis. Ho Rt foot hardware infection VAS cath was removed MRI w/o osteomyelitis in either feet ID ff- on Ancef Acute renal failure oliguric-- not recovering secondary to rhabdomyolysis and sepsis, meds oxacillin, vanco etc. - on HD- vas cath removed - due to sepsis - Renal ff - IR consulted today for Vascath replacement then HD right after - eventually will need permcath placed for permament HD once cleared with ID Metabolic Encephalopathy- gradually improving - appreciate Dr. Elizabeth- neuropsychology seeing patient - Cognitive therapy Nausea- likely from uremia acute resp failure on vent.- resolved off vent Elevated LFTs- trending down. - ff periodically CAD s/p CABG History of chronic pain- on further discussion with family- no history of narcotic reaction but refused to be on it - scared of being addicted - prn pain meds - MRI no acute disease Constipation -start meds for constipation scheduled DC planning- patient will need rehab Discharge Planning A.mGrover labs Mann Alberto DO Mar 04, 2018 13:44
[2018-03-04] MEDS ORDERED: MAGNESIUM HYDROXIDE SUSP 30 ML CUP PO PRN (13:45)
[2018-03-04] MEDS: POLYETHYLENE GLYCOL 17 GM PKG PO SCH (14:23)
[2018-03-04] MEDS: DOCUSATE SODIUM 50 MG/SENNA 8.6 MG TAB PO SCH ×2 (14:24→21:00)
[2018-03-04] MEDS: BISACODYL 10 MG SUPP RECTAL SCH (14:24)
--- NOTE | 2018-03-04 14:24 | RADRPT ---
EXAM DATE: 03/03/2018 3:22 PM EDT AGE/SEX: 62 years / Male INDICATIONS: Patient presents elevated BUN and Creatinine in need of temporary dialysis catheter. CLINICAL DATA: This is the patient's initial encounter. Patient reports that signs and symptoms have been present for 3 weeks and indicates a pain score of 0/10. MEDICAL/SURGICAL HISTORY: Diabetes. Hypertension. Carcinoma, colon. HyperlipidemiaChronic pa in syndromebilateral lower extremity ulcersBPHprior NSTEMIsevere 2-vessel CAD managed medicallyold RB BBprior GI bleedanemia secondary to GI bleedingArthritisCHF,GERD . partial colectomyskin grafts to r ight ankleleft ankle surgery COMPARISON: [facility], [facility] DIALYS[facility] CATHETER [facility]CMT W/US, RIGHT, 02/17/2018. . FLUORO TIME (min): .5 IMAGE SERIES: ACCESS SITE: Right internal jugular vein DEVICE(S): 14 [place] double lumen Schon catheter 20cm . . PROCEDURE : 1. Ultrasound guided venipuncture. 2. Fluoroscopic guidance. 3. 14 [place] Vas-Cath placement. The risks, benefits and alternatives to the procedure were explained and verbal and written consent w as obtained. The site was prepped in sterile fashion. Full sterile technique was used, including ca p, mask, sterile gloves and gown and a large sterile sheet. Hand hygiene and 2% chlorhexidine prep w as utilized per protocol for cutaneous antisepsis with appropriate dry time for site. Sterile gel an d sterile probe cover were utilized for ultrasound guidance. The skin and subcutaneous tissues were infiltrated with local anesthetic solution. A suitable site a natalie the vein was selected with ultrasound and fluoroscopic guidance. A small incision was made. Th e vein was accessed under direct ultrasound visualization using the micropuncture technique. The kale ropuncture set was exchanged for a 0.035 wire. The tract was dilated. The catheter was advanced int o position under direct fluoroscopic visualization, and was advanced with the tip at the junction of the superior vena cava and rt atrium. The Vas-Cath was fixed in place with suture and a sterile dres sing was applied. The patient tolerated the procedure well and there were no complications. CONCLUSION: 1. Uncomplicated vas catheter placement for dialysis as above. Electronically signed by: Gio Winston MD 03/04/2018 2:22 PM EDT
[2018-03-04] MEDS ORDERED: DEXTROSE 50% IN WATER 50 ML VIAL(D50) IV PUSH PRN (14:30)
[2018-03-04] MEDS ORDERED: GLUCAGON 1 MG/ML VIAL OTHER PRN (14:30)
--- NOTE | 2018-03-04 15:07 | PD.WCN.NOT ---
Wound Consult Description: Consult for WOUND MANAGEMENT of RIGHT LE WOUNDS per Dr Alberto Communicated with: RN Patient Patient family members at bedside Dr Alberto Recommendation: Right lower posterior extremity Q3D: 1. Remove dressing of rolled gauze, gauze, and Maxorb II from lower right extremity. 2. Cleanse wound with NS and gauze, pat dry. 3. Apply Maxorb II to wound bed and cover with gauze or OPTILOCK if saturation occurs prior to 3 day dressing change. 4. Secure with rolled gauze and tape. 5. Date dressing. PLEASE KEEP BILATERAL HEELS FLOATED OFF MATTRESS AT ALL TIMES USING TWO PILLOWS, ONE FOR EACH CALF. Left lower extremity eschar/DTI's BID and PRN 1. [place] with Cav[place] skin barrier film. 2. Leave open to air and free from pressure. Transparent film dressing on anterior lower left leg may remain in place for up to 7 days unless saturated or dislodged. Additional Information: Patient seen on for wound evaluation of bilateral lower extremities. Left lateral malleolus is noted with a DEEP TISSUE INJURY measuring 1.6cm x 0.9cm x non blanching dark maroon discoloration. Left lateral lower extremity visualized with dry intact stable eschar measuring 4cm x 2.1cm x 0.1cm with no drainage and no odor with unremarkable periwound. Right posterior lower extremity noted with a wound measuring 3.5cm x 1.9cm x ~0.2cm of pink and white moist tissue with scant, thick, clear, yellow, scant, active drainage. Wound was cleansed with NS and gauze with a culture taken at that time. Maxorb II was placed over the wound bed, periwound is unremarkable, and secured with gauze and rolled gauze dated today. Recommend to change dressing Q3D and PRN for saturation or dislodgement. May use an optilock over the Maxorb II if drainage is not controlled for 3 days. If cultures come back positive, may recommend a silver impregnated alginate for antimicrobial properties (Maxorb Extra AG). If patient requests UNNA Boot application, TWIN's should be done before compression therapy is ordered. Kelsey Gipson [facility] Mar 04, 2018 15:07
[2018-03-04] MEDS: ONDANSETRON ODT 4 MG TAB PO PRN (17:42)
[2018-03-05] VITALS (11 sets, daily range): BP systolic 128–159; BP diastolic 66–88; PULSE 76–102; RESP 18; TEMP 97.2–98.5; O2SAT 93–96
[2018-03-05] MEDS: oxyCODONE/ACETAMINOPHEN 7.5 MG/325 MG TAB PO PRN ×5 (03:30→23:20)
[2018-03-05] MEDS: hydrALAZINE HCL 25 MG TAB PO SCH ×3 (03:31→17:21)
[2018-03-05] MEDS: CHLORHEXIDINE GLUCONATE 2 % 1 PACK (2 CLOTHS) TOP SCH (03:32)
[2018-03-05 05:52] LABS: AUTOMATED NEUTROPHIL # 7.8 TH/MM3 (1.8-7.7); BASOPHIL # 0.1 TH/MM3 (0-0.2); BASOPHIL % 0.6 % (0.0-2.0); EOSINOPHIL # 0.6 TH/MM3 (0-0.4); EOSINOPHIL % 5.6 % (0.0-4.0); HEMATOCRIT 30.4 % (39.0-51.0); HEMOGLOBIN 10.2 GM/DL (13.0-17.0); LYMPH % 11.1 % (9.0-44.0); LYMPHOCYTE # 1.2 TH/MM3 (1.0-4.8); MEAN CELL VOLUME 83.7 FL (80.0-100.0); MEAN CORPUSCULAR HGB CONC 33.4 % (32.0-36.0); MONO % 8.4 % (0.0-8.0); MONOCYTE # 0.9 TH/MM3 (0-0.9); NEUT % 74.3 % (16.0-70.0); PLATELET COUNT 313 TH/MM3 (150-450); RED BLOOD COUNT 3.64 MIL/MM3 (4.50-5.90); WHITE BLOOD COUNT 10.5 TH/MM3 (4.0-11.0)
[2018-03-05 06:06] LABS: ALBUMIN 2.8 GM/DL (3.4-5.0); CALCIUM 8.3 MG/DL (8.5-10.1); CREATININE 6.68 MG/DL (0.60-1.30); MAGNESIUM 2.1 MG/DL (1.5-2.5); PHENYTOIN (DILANTIN) 2.1 MCG/ML (10.0-20.0)
[2018-03-05] MEDS: FOSPHENYTOIN SODIUM 100 MG PE/2 ML VIAL IV SCH (06:20)
[2018-03-05 06:22] LABS: PHOSPHORUS 8.1 MG/DL (2.5-4.9)
[2018-03-05] MEDS: ONDANSETRON ODT 4 MG TAB PO PRN (06:24)
[2018-03-05] MEDS: INSULIN NovoLIN REGULAR SUPPLEMENTAL SCALE SQ SCH ×4 (08:00→21:00)
[2018-03-05] MEDS: CHLORHEXIDINE 0.12% (ORAL KIT) 15 ML CUP MT SCH ×2 (08:00→20:00)
[2018-03-05] MEDS: PANTOPRAZOLE SOD 40 MG DELAYED RELEASE TAB PO SCH (08:53)
[2018-03-05] MEDS: METOPROLOL TARTRATE 25 MG TAB PO SCH ×2 (08:53→23:28)
[2018-03-05] MEDS: HEPARIN SODIUM - SQ 10,000 UNITS/ML VIAL SQ SCH ×2 (09:00→23:19)
[2018-03-05] MEDS: DOCUSATE SODIUM 50 MG/SENNA 8.6 MG TAB PO SCH ×2 (09:00→23:21)
[2018-03-05] MEDS: INSULIN DETEMIR 100 UNITS/ML VIAL SQ SCH ×2 (09:00→23:22)
[2018-03-05] MEDS: ARTIFICIAL TEARS OPTH OINT 3.5 APPLIC/3.5 GM TUBO EACH EYE SCH ×2 (09:00→23:14)
[2018-03-05] MEDS: POLYETHYLENE GLYCOL 17 GM PKG PO SCH (09:00)
[2018-03-05] MEDS: FUROSEMIDE 20 MG/2 ML VIAL IV PUSH SCH ×2 (09:00→23:15)
[2018-03-05] MEDS: BISACODYL 10 MG SUPP RECTAL SCH (09:00)
--- NOTE | 2018-03-05 09:25 | HHI.PR ---
Review/Management Diagnosis/Plan: (1) Acute encephalopathy ICD Codes: G93.40 - Encephalopathy, unspecified Status: Acute Plan: Metabolic encephalopathy Possible focal seizure MRI brain no aneurysm or vaso-occlusive disease. 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 - Other rheumatic mitral valve diseases Status: Acute Plan: Seen by cardiology Infectious disease (3) Cardiovascular disease ICD Codes: I25.10 - Atherosclerotic heart disease of [place] coronary artery without angina pectoris Status: Acute Plan: Seen by cardiology (4) Acute renal failure ICD Codes: N17.9 - Acute kidney failure, unspecified Status: Chronic Plan: On hemodialysis Subjective Subjective Comments No acute events reported No headache No chest pain No dyspnea Active Medications Current Medications Medications (Trade) Dose Ordered Sig/Ada Route Start Time Stop Time Status Last Admin (NS Flush) 2 ml UNSCH PRN IV FLUSH 02/12/18 21:45 03/03/18 10:30 ([place] Nursing Information) 1 Q361D XX 02/13/18 00:00 (Chlorhexidine 2% Cloth) 3 pack Taper DAILY@04 TOP 02/13/18 04:00 02/09/19 03:59 02/27/18 03:16 (Chlorhexidine 2% Cloth) 3 pack UNSCH PRN TOP 02/13/18 00:00 (Dilaudid Pf Inj) 0.2 mg Q4H PRN IV PUSH 02/13/18 09:00 03/01/18 15:44 (Tylenol) 650 mg Q4H PRN PO 02/13/18 10:45 02/27/18 12:45 (Trandate Inj) 20 mg Q2H PRN IV PUSH 02/13/18 11:00 02/27/18 05:13 (Cepacol Extra Sia (Sugar Free)) 1 lozenge Q1H PRN BUCCAL 02/13/18 11:00 02/13/18 11:03 Propofol 100 ml @ 3.66 mls/hr TITRATE PRN IV 02/13/18 19:45 02/19/18 13:45 (Peridex 0.12% Liq) 15 ml BID@08,20 MT 02/14/18 08:00 03/05/18 08:00 Fentanyl Citrate 250 ml @ 5 mls/hr TITRATE PRN IV 02/13/18 21:15 02/19/18 09:08 Sodium Chloride 1,000 ml @ 0 mls/hr Q0M PRN OTHER 02/17/18 11:29 02/28/18 18:50 (Heparin Inj) 8,000 units UNSCH PRN IV FLUSH 02/17/18 11:30 Sodium Chloride 1,000 ml @ 200 mls/hr Q5H PRN IV 02/17/18 11:29 Sodium Chloride 1,000 ml @ 0 mls/hr Q0M PRN OTHER 02/17/18 11:29 Albumin Human 100 ml @ 60 mls/hr UNSCH PRN IV 02/17/18 11:30 02/28/18 18:50 (NS Flush) 5 ml UNSCH PRN IV FLUSH 02/17/18 11:30 (Heparin Inj) UNSCH PRN .XX 02/17/18 11:30 02/22/18 10:29 (Gentamicin Inj) 20 mg UNSCH PRN OTHER 02/17/18 11:30 02/22/18 10:30 (Zofran Odt) 4 mg UNSCH PRN PO 02/17/18 12:00 (Tylenol) 650 mg UNSCH PRN PO 02/17/18 11:30 (Benadryl) 25 mg UNSCH PRN PO 02/17/18 11:30 (Nitrostat Sl) 0.4 mg UNSCH PRN SL 02/17/18 11:30 (Catapres) 0.1 mg UNSCH PRN PO 02/17/18 11:30 02/24/18 03:50 (Gelfoam 12 Mm/7 Mm Top) 1 foam UNSCH PRN TOP 02/17/18 11:30 (NS Flush) UNSCH PRN IV FLUSH 02/17/18 13:30 (Heparin Inj) UNSCH PRN IV FLUSH 02/17/18 13:30 (Lopressor) 25 mg Q12HR PO 02/19/18 09:00 03/05/18 08:53 Daptomycin 800 mg/ Sodium Chloride 100 ml @ 200 mls/hr Q48H IV 02/19/18 20:00 03/03/18 21:43 Dexmedetomidine HCl 1000 mcg/ Sodium Chloride 250 ml @ 6.6 mls/hr TITRATE PRN IV 02/19/18 23:30 02/26/18 09:43 (Albuterol Neb) 2.5 mg Q2HR NEB PRN NEB 02/20/18 22:00 (D50w (Vial) Inj) 50 ml UNSCH PRN IV PUSH 02/21/18 10:00 (Glucagon Inj) 1 mg UNSCH PRN OTHER 02/21/18 10:00 (Lacrilube Opht Oint) 1 applic Q12HR EACH EYE 02/22/18 21:00 03/05/18 09:00 (Apresoline) 75 mg Q8H PO 02/22/18 18:00 03/05/18 08:54 (Lasix Inj) 80 mg BID IV PUSH 02/23/18 21:00 03/05/18 09:00 (Levemir Inj) 20 units Q12HR SQ 02/24/18 09:00 03/05/18 09:00 (Heparin Inj) 5,000 units Q12HR SQ 02/24/18 09:00 03/05/18 09:00 (Cerebyx Inj) 200 mgpe Q12H IV 03/01/18 06:00 03/05/18 06:20 (Percocet 7.5-325 Mg) 1 tab Q4H PRN PO 03/01/18 13:30 03/05/18 08:55 Cefazolin Sodium 1000 mg/Sodium Chloride 100 ml @ 200 mls/hr Q24H IV 03/03/18 14:00 03/04/18 13:09 (Zofran Odt) 4 mg Q6H PRN PO 03/01/18 18:15 03/05/18 06:24 (Protonix) 40 mg DAILY PO 03/04/18 09:00 03/05/18 08:53 (NS Flush) UNSCH PRN IV FLUSH 03/03/18 15:00 (Heparin Inj) UNSCH PRN IV FLUSH 03/03/18 15:00 (Crissy-Colace) 2 tab BID PO 03/04/18 13:45 03/04/18 14:24 (Miralax) 17 gm DAILY PO 03/04/18 13:45 03/04/18 14:23 (Dulcolax Supp) 10 mg DAILY RECTAL 03/04/18 13:45 03/04/18 14:24 (Milk Of Magnzander Liq) 30 ml Q6H PRN PO 03/04/18 13:45 (D50w (Vial) Inj) 50 ml UNSCH PRN IV PUSH 03/04/18 14:30 (Glucagon Inj) 1 mg UNSCH PRN OTHER 03/04/18 14:30 (NovoLIN R SUPPLEMENTAL SCALE) 1 ACHS SQ 03/04/18 17:00 03/04/18 22:57 Allergies Allergies Coded Allergies No Known Allergies (Unverified10/21/17) Review of Systems All other ROS: ROS reviewed as documented in chart Exam I&O / VS Vital Signs Date Time Temp Pulse Resp B/P (MAP) Pulse Ox O2 Delivery O2 Flow Rate FiO2 03/05/18 08:04 97.3 97 18 156/77 (103) 93 03/05/18 04:00 101 03/05/18 04:00 98.2 99 18 156/79 (104) 96 03/05/18 00:00 99 03/05/18 00:00 98.0 100 18 155/78 (103) 96 03/04/18 20:00 Nasal Cannula 3.00 03/04/18 20:00 97.3 100 19 141/69 (93) 94 03/04/18 20:00 102 03/04/18 16:16 97.6 96 17 150/73 (98) 96 03/04/18 16:00 95 03/04/18 12:03 97.8 81 18 132/68 (89) 96 03/04/18 12:00 82 Exam Comments Alert, oriented to self and able to say a few words follow some simple request, no facial asymmetry no involuntary movements no gaze deviation able to raise arms but does have generalized weakness reduced fine finger movements mild generalized edema mild distal toe movements Objective Micro and Labs Laboratory Tests Test 03/05/18 04:00 03/05/18 05:30 Stool C. difficile Toxin (PCR) NEGATIVE Stl C. difficile Toxin Epiderm 027 PRESUMPTIVE NEGATIVE White Blood Count 10.5 Red Blood Count 3.64 Hemoglobin 10.2 Hematocrit 30.4 Mean Corpuscular Volume 83.7 Mean Corpuscular Hemoglobin 28.0 Mean Corpuscular Hemoglobin Concent 33.4 Red Cell Distribution Width 15.0 Platelet Count 313 Mean Platelet Volume 9.0 Neutrophils (%) (Auto) 74.3 Lymphocytes (%) (Auto) 11.1 Monocytes (%) (Auto) 8.4 Eosinophils (%) (Auto) 5.6 Basophils (%) (Auto) 0.6 Neutrophils # (Auto) 7.8 Lymphocytes # (Auto) 1.2 Monocytes # (Auto) 0.9 Eosinophils # (Auto) 0.6 Basophils # (Auto) 0.1 CBC Comment DIFF FINAL Differential Comment Blood Urea Nitrogen 85 Creatinine 6.68 Random Glucose 155 Albumin 2.8 Calcium Level 8.3 Phosphorus Level 8.1 Magnesium Level 2.1 Sodium Level 129 Potassium Level 5.5 Chloride Level 90 Carbon Dioxide Level 24.0 Anion Gap 15 Estimat Glomerular Filtration Rate 8 Phenytoin (Dilantin) Level 2.1 Date/Time Source Procedure Growth Status 03/01/18 15:53 Blood Peripheral Aerobic Blood Culture - Preliminary NO GROWTH IN 3 DAYS Resulted 03/01/18 15:53 Blood Peripheral Anaerobic Blood Culture - Preliminary NO GROWTH IN 3 DAYS Resulted 02/19/18 08:29 Sputum Endotracheal Gram Stain - Final Complete 02/19/18 08:29 Sputum Endotracheal Sputum Culture - Final RARE GROWTH NORMAL RESPIRATORY DREW Complete 02/19/18 08:30 Urine Catheterized Urine Urine Culture - Final NO GROWTH IN 48 HOURS. Complete 03/04/18 13:59 Wound Leg Gram Stain - Final Resulted 03/04/18 13:59 Wound Leg Wound Culture Pending Resulted Yogi Landis MD Mar 05, 2018 09:25
[2018-03-05] MEDS: levETIRAcetam 500 MG TAB PO SCH ×2 (10:00→23:19)
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
--- NOTE | 2018-03-05 13:42 | HHI.IDPN ---
Subjective Subjective Remarks ID COVERAGE his is a 62yM with history of prior stroke, DM, CAD who presents after his brother found him after he fell. He states he was on the floor for > 18 hours. In admitting history a week of fatigue, fever, chills, generalized abdominal pain which is mild. Labs showed CK 7000, wbc 17k, Cr 1.3, trop 0.8. CT chest/abd/pelvis unremarkable. CT head and c-spine negative for trauma. Pt is febrile with T max of 103 Lactic acidosis of 4.4 Elevated troponine + blood ketones Today blood clx positive 12/18 for [facility] in pairs, sheryl Notes reviewed Afebrile No new (+) BC Last (+) BC with Staph epi 02/22 Last (+) BC with MSSA 02/15 Mental status improving Antibiotics daptomycin cefazolin Current Medications Medications (Trade) Dose Ordered Sig/Ada Route Start Time Stop Time Status Last Admin (NS Flush) 2 ml UNSCH PRN IV FLUSH 02/12/18 21:45 03/03/18 10:30 ([facility] [place] [facility]) 1 [id number] XX 02/13/18 00:00 (Chlorhexidine 2% Cloth) 3 pack Taper DAILY@04 TOP 02/13/18 04:00 02/09/19 03:59 02/27/18 03:16 (Chlorhexidine 2% Cloth) 3 pack UNSCH PRN TOP 02/13/18 00:00 (Dilaudid Pf Inj) 0.2 mg Q4H PRN IV PUSH 02/13/18 09:00 03/01/18 15:44 (Tylenol) 650 mg Q4H PRN PO 02/13/18 10:45 02/27/18 12:45 (Trandate Inj) 20 mg Q2H PRN IV PUSH 02/13/18 11:00 02/27/18 05:13 (Cepacol Extra Sia (Sugar Free)) 1 lozenge Q1H PRN BUCCAL 02/13/18 11:00 02/13/18 11:03 Propofol 100 ml @ 3.66 mls/hr TITRATE PRN IV 02/13/18 19:45 02/19/18 13:45 (Peridex 0.12% Liq) 15 ml BID@08,20 MT 02/14/18 08:00 03/05/18 08:00 Fentanyl Citrate 250 ml @ 5 mls/hr TITRATE PRN IV 02/13/18 21:15 02/19/18 09:08 Sodium Chloride 1,000 ml @ 0 mls/hr Q0M PRN OTHER 02/17/18 11:29 02/28/18 18:50 (Heparin Inj) 8,000 units UNSCH PRN IV FLUSH 02/17/18 11:30 Sodium Chloride 1,000 ml @ 200 mls/hr Q5H PRN IV 02/17/18 11:29 Sodium Chloride 1,000 ml @ 0 mls/hr Q0M PRN OTHER 02/17/18 11:29 Albumin Human 100 ml @ 60 mls/hr UNSCH PRN IV 02/17/18 11:30 02/28/18 18:50 (NS Flush) 5 ml UNSCH PRN IV FLUSH 02/17/18 11:30 (Heparin Inj) UNSCH PRN .XX 02/17/18 11:30 02/22/18 10:29 (Gentamicin Inj) 20 mg UNSCH PRN OTHER 02/17/18 11:30 02/22/18 10:30 (Zofran Odt) 4 mg UNSCH PRN PO 02/17/18 12:00 (Tylenol) 650 mg UNSCH PRN PO 02/17/18 11:30 (Benadryl) 25 mg UNSCH PRN PO 02/17/18 11:30 (Nitrostat Sl) 0.4 mg UNSCH PRN SL 02/17/18 11:30 (Catapres) 0.1 mg UNSCH PRN PO 02/17/18 11:30 02/24/18 03:50 (Gelfoam 12 Mm/7 Mm Top) 1 foam UNSCH PRN TOP 02/17/18 11:30 (NS Flush) UNSCH PRN IV FLUSH 02/17/18 13:30 (Heparin Inj) UNSCH PRN IV FLUSH 02/17/18 13:30 (Lopressor) 25 mg Q12HR PO 02/19/18 09:00 03/05/18 08:53 Daptomycin 800 mg/ Sodium Chloride 100 ml @ 200 mls/hr Q48H IV 02/19/18 20:00 03/03/18 21:43 Dexmedetomidine HCl 1000 mcg/ Sodium Chloride 250 ml @ 6.6 mls/hr TITRATE PRN IV 02/19/18 23:30 02/26/18 09:43 (Albuterol Neb) 2.5 mg Q2HR NEB PRN NEB 02/20/18 22:00 (D50w (Vial) Inj) 50 ml UNSCH PRN IV PUSH 02/21/18 10:00 (Glucagon Inj) 1 mg UNSCH PRN OTHER 02/21/18 10:00 (Lacrilube Opht Oint) 1 applic Q12HR EACH EYE 02/22/18 21:00 03/05/18 09:00 (Apresoline) 75 mg Q8H PO 02/22/18 18:00 03/05/18 08:54 (Lasix Inj) 80 mg BID IV PUSH 02/23/18 21:00 03/05/18 09:00 (Levemir Inj) 20 units Q12HR SQ 02/24/18 09:00 03/05/18 09:00 (Heparin Inj) 5,000 units Q12HR SQ 02/24/18 09:00 03/05/18 09:00 (Percocet 7.5-325 Mg) 1 tab Q4H PRN PO 03/01/18 13:30 03/05/18 08:55 Cefazolin Sodium 1000 mg/Sodium Chloride 100 ml @ 200 mls/hr Q24H IV 03/03/18 14:00 03/04/18 13:09 (Zofran Odt) 4 mg Q6H PRN PO 03/01/18 18:15 03/05/18 06:24 (Protonix) 40 mg DAILY PO 03/04/18 09:00 03/05/18 08:53 (NS Flush) UNSCH PRN IV FLUSH 03/03/18 15:00 (Heparin Inj) UNSCH PRN IV FLUSH 03/03/18 15:00 (Crissy-Colace) 2 tab BID PO 03/04/18 13:45 03/04/18 14:24 (Miralax) 17 gm DAILY PO 03/04/18 13:45 03/04/18 14:23 (Dulcolax Supp) 10 mg DAILY RECTAL 03/04/18 13:45 03/04/18 14:24 (Milk Of Magnesia Liq) 30 ml Q6H PRN PO 03/04/18 13:45 (D50w (Vial) Inj) 50 ml UNSCH PRN IV PUSH 03/04/18 14:30 (Glucagon Inj) 1 mg UNSCH PRN OTHER 03/04/18 14:30 (NovoLIN R SUPPLEMENTAL SCALE) 1 ACHS SQ 03/04/18 17:00 03/04/18 22:57 (Keppra) 500 mg Q12H PO 03/05/18 10:00 03/05/18 10:00 Lines PIVs look ok Past Medical History Past Medical History Diabetes Hyperlipidemia Chronic pain syndrome bilateral lower extremity ulcers BPH Hypertension Colon cancer s/p partial colectomy prior NSTEMI severe 2-vessel CAD managed medically old RBBB prior GI bleed anemia secondary to GI bleeding Arthritis CHF, unknown type GERD Past Surgical History partial colectomy skin grafts to right ankle left ankle surgery CABG Allergies: Coded Allergies: No Known Allergies (Unverified , 10/21/17) Objective . Vital Signs Date Time Temp Pulse Resp B/P (MAP) Pulse Ox O2 Delivery O2 Flow Rate FiO2 03/05/18 12:05 97.2 85 18 140/88 (105) 96 03/05/18 08:04 97.3 97 18 156/77 (103) 93 03/05/18 08:00 102 03/05/18 04:00 101 03/05/18 04:00 98.2 99 18 156/79 (104) 96 03/05/18 00:00 99 03/05/18 00:00 98.0 100 18 155/78 (103) 96 03/04/18 20:00 Nasal Cannula 3.00 03/04/18 20:00 97.3 100 19 141/69 (93) 94 03/04/18 20:00 102 03/04/18 16:16 97.6 96 17 150/73 (98) 96 03/04/18 16:00 95 . Laboratory Tests Test 03/05/18 05:30 White Blood Count 10.5 TH/MM3 Red Blood Count 3.64 MIL/MM3 Hemoglobin 10.2 GM/DL Hematocrit 30.4 % Mean Corpuscular Volume 83.7 FL Mean Corpuscular Hemoglobin 28.0 PG Mean Corpuscular Hemoglobin Concent 33.4 % Red Cell Distribution Width 15.0 % Platelet Count 313 TH/MM3 Mean Platelet Volume 9.0 FL Neutrophils (%) (Auto) 74.3 % Lymphocytes (%) (Auto) 11.1 % Monocytes (%) (Auto) 8.4 % Eosinophils (%) (Auto) 5.6 % Basophils (%) (Auto) 0.6 % Neutrophils # (Auto) 7.8 TH/MM3 Lymphocytes # (Auto) 1.2 TH/MM3 Monocytes # (Auto) 0.9 TH/MM3 Eosinophils # (Auto) 0.6 TH/MM3 Basophils # (Auto) 0.1 TH/MM3 CBC Comment DIFF FINAL Differential Comment Laboratory Tests Test 03/04/18 04:36 03/05/18 05:30 Blood Urea Nitrogen 68 MG/DL 85 MG/DL Creatinine 6.02 MG/DL 6.68 MG/DL Random Glucose 200 MG/DL 155 MG/DL Calcium Level 8.5 MG/DL 8.3 MG/DL Sodium Level 132 MEQ/L 129 MEQ/L Potassium Level 4.6 MEQ/L 5.5 MEQ/L Chloride Level 92 MEQ/L 90 MEQ/L Carbon Dioxide Level 23.8 MEQ/L 24.0 MEQ/L Anion Gap 16 MEQ/L 15 MEQ/L Estimat Glomerular Filtration Rate 10 ML/MIN 8 ML/MIN Albumin 2.8 GM/DL Phosphorus Level 8.1 MG/DL Magnesium Level 2.1 MG/DL Microbiology Date/Time Source Procedure Growth Status 03/04/18 13:59 Wound Leg Gram Stain - Final Resulted 03/04/18 13:59 Wound Leg Wound Culture Pending Resulted Imaging Last Impressions Abdomen X-Ray 03/02/18 0000 Signed Impressions: CONCLUSION: No acute abdominal abnormality is identified. Thoracic Spine MRI 03/01/18 0000 Signed Impressions: CONCLUSION: 1. Examination within normal limits for age. No canal or foraminal stenosis. N o discrete disc protrusion. Lumbar Spine MRI 03/01/18 0000 Signed Impressions: CONCLUSION: 1. At L3-4 there is a superior endplate depression or Schmorl's node at L4 wit h disc bulge and osteophytic ridging resulting in a mild central canal and righ t lateral recess and foraminal stenosis. 2. At L4-5 there is facet arthropathy with mild lateral recess stenosis. 3. No acute fracture. Conus medullaris intact. Neck Magnetic Resonance Angiography 02/28/18 0000 Signed Impressions: CONCLUSION: 1. Smooth mild to moderate stenosis proximal left internal carotid artery. Dif ferential diagnosis includes atherosclerotic plaque formation and arthritis. __ Percent stenosis is calculated using the diameter of the stenotic region over t he diameter of the normal distal internal carotid artery __ Head Magnetic Resonance Angiography 02/28/18 Signed Impressions: CONCLUSION: 1. Examination within normal limits for age. Head CT 02/28/18 0000 Signed Impressions: CONCLUSION: 1. Central and cortical atrophy with periventricular ischemic changes, negativ e for acute process. Brain MRI 02/28/18 0000 Signed Impressions: CONCLUSION: 1. Symmetric atrophy. 2. Mastoiditis. 3. No acute intracranial findings. Chest X-Ray 02/26/18 0600 Signed Impressions: CONCLUSION: No significant interval change with persistent mild patchy left lung base opaci ty. Abdomen/Pelvis CT 02/22/18 Signed Impressions: CONCLUSION: 1. Small bilateral pleural effusions with dependent atelectasis and consolidat ion in both lungs. 2. Mild ileus. Liver Ultrasound 02/17/18 Signed Impressions: CONCLUSION: 1. Hepatomegaly with coarsened liver echotexture. No focal liver lesion is heath ntified. 2. Mild splenomegaly. Catheter Placement X-Ray 02/17/18 Signed Impressions: CONCLUSION: 1. Uncomplicated line placement as above. Foot MRI 02/14/18 0000 Signed Impressions: CONCLUSION: 1. Diffuse subcutaneous edema of the foot with mild enhancement along the dors al aspect of the foot. This could represent cellulitis. No abscess is identifie d and there are no findings to indicate osteomyelitis. 2. There is some degree of osseous fusion at the tibiotalar joint and there is severe degenerative change at the subtalar joint and talonavicular joint. 3. Old healed fracture of the fifth metatarsal. Foot X-Ray 02/13/18 Signed Impressions: CONCLUSION: 1. There is a transverse fracture through the mid fifth metatarsal. Adjacent p eriosteal reaction is present suggesting that it is subacute or chronic. 2. There has been prior arthrodesis of the subtalar joint and tibiotalar joint s with osseous fusion. Hypertrophic osteophytes are present at the talonavicula r joint. Cervical Spine CT 02/12/18 Signed Impressions: CONCLUSION: Unremarkable study except for slight degenerative spondylosis. CT Angiography 02/12/18 Signed Impressions: CONCLUSION: 1. Possible nodules within the thyroid gland mainly on the right side. 2. Slight fatty liver. 3. No definite pulmonary embolus. Physical Exam CONSTITUTIONAL/GENERAL: Awake and alert, and answered some of my questions, NAD SKIN: No jaundice, rashes, or lesions. Skin temperature appropriate. HEAD: Atraumatic. Normocephalic. EYES: Pupils equal and round and reactive. No scleral icterus. No injection or drainage. Fundi not examined. MOUTH: Moist oral mucosa RESPIRATORY/CHEST: Clear to auscultation. Breath sounds equal bilaterally. No wheezes, rales, or rhonchi. GASTROINTESTINAL: Abdomen soft and less distended GENITOURINARY: Without palpable bladder distension. MUSCULOSKELETAL: Extremities without clubbing, cyanosis, positive edema NEUROLOGICAL: awake, alert non verbal, moaning, following commands. Answering my questions PSYCHIATRIC:calm cooperative Vas-Cath right neck looks okay no evidence of infection Assessment & Plan Remarks Severe Sepsis present on admission Mitral valve endocarditis, MSSA MSSA high grade bacteremia. Bilateral LE cellulitis. Staph epi (+) BC, staph epi from 02/19 with different antibiotic susceptibility from the staph epi 02/22 Ho Rt foot hardware infection MRI w/o e/o osteomyelitis in either feet acute metabolic encephalopathy:sepsis, metabolic. -Improving acute resp failure, doing well post extubation. CAD s/p CABG ARF , On HD Persistent coag neg staph bacteremia sp HD catherter removal MS change -improving Recs: cont Ancef @ reduced dose Continue daptomycin, and will stop on March 08 Follow repeat cultures If no new positive blood culture, it will be okay to place permacath from ID standpoint We will need full treatment for endocarditis Spoke with family Daniela Ritter MD Mar 05, 2018 13:42
--- NOTE | 2018-03-05 14:44 | HHI.PR ---
Subjective Remarks - More alert today Family is concerned about wound on right lower extremity will consult wound care will need SNF at discharge A.m. labs Discussed with RN and case management and family Having constipation 6-20 HAD BMS LAST NIGHT- NOW HAVING LOOSE STOOLS DW RN AND PT AND FAMILY WILL NEED TREATMENT FOR ENDOCARDITIS NO OSTEOMYELITIS OF BL LE SPEECH FOR SWALLOW EVALUATIONS Objective Vitals Vital Signs Date Time Temp Pulse Resp B/P (MAP) Pulse Ox O2 Delivery O2 Flow Rate FiO2 03/05/18 12:05 97.2 85 18 140/88 (105) 96 03/05/18 08:04 97.3 97 18 156/77 (103) 93 03/05/18 08:00 102 03/05/18 04:00 101 03/05/18 04:00 98.2 99 18 156/79 (104) 96 03/05/18 00:00 99 03/05/18 00:00 98.0 100 18 155/78 (103) 96 03/04/18 20:00 Nasal Cannula 3.00 03/04/18 20:00 97.3 100 19 141/69 (93) 94 03/04/18 20:00 102 03/04/18 16:16 97.6 96 17 150/73 (98) 96 03/04/18 16:00 95 I/O 03/04/18 03/04/18 03/04/18 03/05/18 03/05/18 03/05/18 07:00 15:00 23:00 07:00 15:00 23:00 Intake Total 240 ml 600 ml 150 ml Output Total 700 ml Balance 240 ml -100 ml 150 ml Intake Oral 240 ml 600 ml 150 ml Output Urine Total 700 ml # Voids 3 2 # Bowel Movements 0 2 Result Diagram: 03/05/18 0530 03/05/18 0530 Other Results Laboratory Tests Test 03/03/18 06:54 03/04/18 04:36 03/05/18 04:00 03/05/18 05:30 Blood Urea Nitrogen 108 MG/DL 68 MG/DL 85 MG/DL Creatinine 7.96 MG/DL 6.02 MG/DL 6.68 MG/DL Random Glucose 128 MG/DL 200 MG/DL 155 MG/DL Albumin 2.7 GM/DL 2.8 GM/DL Calcium Level 7.9 MG/DL 8.5 MG/DL 8.3 MG/DL Phosphorus Level 9.3 MG/DL 8.1 MG/DL Sodium Level 130 MEQ/L 132 MEQ/L 129 MEQ/L Potassium Level 4.9 MEQ/L 4.6 MEQ/L 5.5 MEQ/L Chloride Level 89 MEQ/L 92 MEQ/L 90 MEQ/L Carbon Dioxide Level 24.8 MEQ/L 23.8 MEQ/L 24.0 MEQ/L Anion Gap 16 MEQ/L 16 MEQ/L 15 MEQ/L Estimat Glomerular Filtration Rate 7 ML/MIN 10 ML/MIN 8 ML/MIN Phenytoin (Dilantin) Level 9.8 MCG/ML 2.2 MCG/ML 2.1 MCG/ML Stool C. difficile Toxin (PCR) NEGATIVE Stl C. difficile Toxin Epiderm 027 PRESUMPTIVE NEGATIVE White Blood Count 10.5 TH/MM3 Red Blood Count 3.64 MIL/MM3 Hemoglobin 10.2 GM/DL Hematocrit 30.4 % Mean Corpuscular Volume 83.7 FL Mean Corpuscular Hemoglobin 28.0 PG Mean Corpuscular Hemoglobin Concent 33.4 % Red Cell Distribution Width 15.0 % Platelet Count 313 TH/MM3 Mean Platelet Volume 9.0 FL Neutrophils (%) (Auto) 74.3 % Lymphocytes (%) (Auto) 11.1 % Monocytes (%) (Auto) 8.4 % Eosinophils (%) (Auto) 5.6 % Basophils (%) (Auto) 0.6 % Neutrophils # (Auto) 7.8 TH/MM3 Lymphocytes # (Auto) 1.2 TH/MM3 Monocytes # (Auto) 0.9 TH/MM3 Eosinophils # (Auto) 0.6 TH/MM3 Basophils # (Auto) 0.1 TH/MM3 CBC Comment DIFF FINAL Differential Comment Magnesium Level 2.1 MG/DL Imaging Last Impressions Catheter Placement X-Ray 03/03/18 0000 Signed Impressions: CONCLUSION: 1. Uncomplicated vas catheter placement for dialysis as above. Abdomen X-Ray 03/02/18 0000 Signed Impressions: CONCLUSION: No acute abdominal abnormality is identified. Thoracic Spine MRI 03/01/18 0000 Signed Impressions: CONCLUSION: 1. Examination within normal limits for age. No canal or foraminal stenosis. N o discrete disc protrusion. Lumbar Spine MRI 03/01/18 0000 Signed Impressions: CONCLUSION: 1. At L3-4 there is a superior endplate depression or Schmorl's node at L4 wit h disc bulge and osteophytic ridging resulting in a mild central canal and righ t lateral recess and foraminal stenosis. 2. At L4-5 there is facet arthropathy with mild lateral recess stenosis. 3. No acute fracture. Conus medullaris intact. Neck Magnetic Resonance Angiography 02/28/18 0000 Signed Impressions: CONCLUSION: 1. Smooth mild to moderate stenosis proximal left internal carotid artery. Dif ferential diagnosis includes atherosclerotic plaque formation and arthritis. __ Percent stenosis is calculated using the diameter of the stenotic region over t he diameter of the normal distal internal carotid artery __ Head Magnetic Resonance Angiography 02/28/18 0000 Signed Impressions: CONCLUSION: 1. Examination within normal limits for age. Head CT 02/28/18 0000 Signed Impressions: CONCLUSION: 1. Central and cortical atrophy with periventricular ischemic changes, negativ e for acute process. Brain MRI 02/28/18 0000 Signed Impressions: CONCLUSION: 1. Symmetric atrophy. 2. Mastoiditis. 3. No acute intracranial findings. Chest X-Ray 02/26/18 0600 Signed Impressions: CONCLUSION: No significant interval change with persistent mild patchy left lung base opaci ty. Abdomen/Pelvis CT 02/22/18 0000 Signed Impressions: CONCLUSION: 1. Small bilateral pleural effusions with dependent atelectasis and consolidat ion in both lungs. 2. Mild ileus. Liver Ultrasound 02/17/18 0000 Signed Impressions: CONCLUSION: 1. Hepatomegaly with coarsened liver echotexture. No focal liver lesion is heath ntified. 2. Mild splenomegaly. Foot MRI 6/1/18 0000 Signed Impressions: CONCLUSION: 1. Diffuse subcutaneous edema of the foot with mild enhancement along the dors al aspect of the foot. This could represent cellulitis. No abscess is identifie d and there are no findings to indicate osteomyelitis. 2. There is some degree of osseous fusion at the tibiotalar joint and there is severe degenerative change at the subtalar joint and talonavicular joint. 3. Old healed fracture of the fifth metatarsal. Foot X-Ray 02/13/18 Signed Impressions: CONCLUSION: 1. There is a transverse fracture through the mid fifth metatarsal. Adjacent p eriosteal reaction is present suggesting that it is subacute or chronic. 2. There has been prior arthrodesis of the subtalar joint and tibiotalar joint s with osseous fusion. Hypertrophic osteophytes are present at the talonavicula r joint. Cervical Spine CT 02/12/18 Signed Impressions: CONCLUSION: Unremarkable study except for slight degenerative spondylosis. CT Angiography 02/12/18 Signed Impressions: CONCLUSION: 1. Possible nodules within the thyroid gland mainly on the right side. 2. Slight fatty liver. 3. No definite pulmonary embolus. Objective Remarks GENERAL: SKIN: Warm and dry. HEAD: Atraumatic. Normocephalic. EYES: Pupils equal and round. No scleral icterus. No injection or drainage. ENT: No nasal bleeding or discharge. Mucous membranes pink and moist. NECK: Trachea midline. No JVD. CARDIOVASCULAR: Regular rate and rhythm. RESPIRATORY: No accessory muscle use. Clear to auscultation. Breath sounds equal bilaterally. GASTROINTESTINAL: Abdomen soft, non-tender, nondistended. Hepatic and splenic margins not palpable. MUSCULOSKELETAL: Extremities without clubbing, cyanosis, or edema. No obvious deformities. NEUROLOGICAL: Awake and alert. No obvious cranial nerve deficits. Motor grossly within normal limits. Five out of 5 muscle strength in the arms and legs. Normal speech. PSYCHIATRIC: Appropriate mood and affect; insight and judgment normal. Procedures (1) Acute renal failure Post Procedure Diagnosis: (1) Acute renal failure Procedure Date: Mar 03, 2018 Supervising Radiologist: Gio Winston Estimated blood loss: 3cc Anesthesia: Local Plan of Activity Patient to Unit: Nursing Unit Patient Condition: Poor Additional Comments: Right Ij vascath placed without difficulty. catheter in good position OK for use. Full dictated report to follow See PACS Report for procedural detail/treatment Gio Winston MD Mar 03, 2018 14:56 Medications and IVs Current Medications Sodium Chloride (NS Flush) 2 ml UNSCH PRN IV FLUSH FLUSH AFTER USING IV ACCESS Last administered on 03/03/18at 10:30; Start 02/12/18 at 21:45 Sodium Chloride 1,000 ml @ 999 mls/hr BOLUS ONCE IV Last administered on 02/12at 21:58; Start 02/12/18 at 21:45; Stop 02/12/18 at 22:45; Status DC Metoclopramide HCl (Reglan Inj) 10 mg ONCE ONCE IV PUSH Last administered on at 22:05; Start 02/12/18 at 21:45; Stop 02/12/18 at 21:46; Status DC Acetaminophen (Tylenol Supp) 650 mg ONCE ONCE RECTAL Last administered on 02/12at 21:58; Start 02/12/18 at 21:45; Stop 02/12/18 at 21:46; Status DC Piperacillin Sod/ Tazobactam Sod 100 ml @ 200 mls/hr ONCE ONCE IV Last administered on 02/12/18at 22:06; Start 02/12/18 at 21:45; Stop 02/12/18 at 22:14 ; Status DC Nitroglycerin (Nitroglycerin 2% Oint) 1 inch ONCE ONCE TOPICAL Last administered on 02/12/18at 22:49; Start 02/12/18 at 22:45; Stop 02/12/18 at 22:46 ; Status DC Furosemide (Lasix Inj) 40 mg ONCE ONCE IV PUSH ; Start 02/12/18 at 22:45; Stop 02/12/18 at 22:45; Status DC Hydromorphone HCl (Dilaudid Pf Inj) 1 mg ONCE ONCE IV PUSH Last administered on 02/12/18at 23:30; Start 02/12/18 at 23:00; Stop 02/12/18 at 23:01; Status DC Iohexol (Omnipaque 350 Inj) 100 ml STK-MED ONCE IVCONTRAST Last administered on 02/12/18at 23:32; Start 02/12/18 at 23:32; Stop 02/12/18 at 23:33; Status DC Sodium Chloride 1,000 ml @ 999 mls/hr BOLUS ONCE IV Last administered on 02/12at 23:57; Start 02/12/18 at 23:45; Stop 02/13/18 at 00:45; Status DC Pantoprazole Sodium (Protonix Inj) 40 mg ONCE ONCE IV PUSH Last administered on 02/12/18at 23:58; Start 02/12/18 at 23:45; Stop 02/12/18 at 23:46; Status DC Aspirin (Aspirin Chew) 162 mg ONCE ONCE CHEW Last administered on 02/13/18at 00 :19; Start 02/13/18 at 00:00; Stop 02/13/18 at 00:01; Status DC Lactated Ringer's 1,000 ml @ 150 mls/hr Q6H40M IV Last administered on at 21:20; Start 02/13/18 at 00:00; Stop 02/13/18 at 22:00; Status DC Potassium Chloride 100 ml @ 50 mls/hr Q2H PRN IV For Potassium 2.8 - 3.2 mEq/L ; Start 02/13/18 at 00:00; Stop 02/15/18 at 13:50; Status DC Potassium Chloride 100 ml @ 50 mls/hr Q2H PRN IV For Potassium 2.8 - 3.2 mEq/ L Last administered on 02/13/18at 17:08; Start 02/13/18 at 00:00; Stop 02/15/18 at 13:50; Status DC Potassium Bicarb/ Potassium Chloride (K-Lyte Cl Eff) 50 meq UNSCH PRN PO For Potassium 3.3 - 3.5 mEq/L; Start 02/13/18 at 00:00; Stop 02/15/18 at 13:50; Status DC Potassium Chloride 100 ml @ 25 mls/hr UNSCH PRN IV For Potassium 3.3 - 3.5 mEq /L; Start 02/13/18 at 00:00; Stop 02/15/18 at 13:50; Status DC Potassium Chloride 100 ml @ 50 mls/hr Q2H PRN IV For Potassium 3.3 - 3.5 mEq/L ; Start 02/13/18 at 00:00; Stop 02/15/18 at 13:50; Status DC Magnesium Sulfate 4 gm/Sodium Chloride 100 ml @ 50 mls/hr UNSCH PRN IV For Magnesium 0.9 - 1.1 mg/dL; Start 02/13/18 at 00:00; Stop 02/15/18 at 13:50; Status DC Magnesium Oxide (Mag-Ox) 800 mg UNSCH PRN PO For Magnesium 1.2 - 1.6 mg/dL; Start 02/13/18 at 00:00; Stop 02/15/18 at 13:50; Status DC Magnesium Sulfate 2 gm/Sodium Chloride 100 ml @ 50 mls/hr UNSCH PRN IV For Magnesium 1.2 - 1.6 mg/dL; Start 02/13/18 at 00:00; Stop 02/15/18 at 13:50; Status DC Potassium Phosphate (K-Phos) 2,000 mg Q4H PRN PO For Phosphorus < 2.5 mg/dL; Start 02/13/18 at 00:00; Stop 02/15/18 at 13:50; Status DC Sodium Phosphate 30 mmol/Sodium Chloride 250 ml @ 42 mls/hr UNSCH PRN IV For Phosphorus < 2.5 mg/dL; Start 02/13/18 at 00:00; Stop 02/15/18 at 13:50; Status DC Potassium Phosphate (K-Phos) 2,000 mg UNSCH PRN PO/TUBE SEE LABEL COMMENTS; Start 02/13/18 at 00:00; Stop 02/15/18 at 13:50; Status DC Potassium Phosphate 30 mmol/ Sodium Chloride 260 ml @ 42 mls/hr UNSCH PRN IV SEE LABEL COMMENTS; Start 02/13/18 at 00:00; Stop 02/15/18 at 13:50; Status DC Dextrose (D50w (Vial) Inj) 25 ml UNSCH PRN IV PUSH HYPOGLYCEMIA-SEE COMMENTS; Start 02/13/18 at 00:00; Stop 02/13/18 at 12:14; Status DC Insulin Human Regular (NovoLIN R SUPPLEMENTAL SCALE) 1 ACHS AND 3AM SQ Last administered on 02/13/18at 08:00; Start 02/13/18 at 03:00; Stop 02/13/18 at 12:04 ; Status DC Albuterol/ Ipratropium (Duoneb Neb) 1 ampule Q6HR NEB INH Last administered on 02/13/18at 08:08; Start 02/13/18 at 04:00; Stop 02/13/18 at 11:51; Status DC Albuterol/ Ipratropium (Duoneb Neb) 1 ampule Q2HR NEB PRN INH WHEEZING Last administered on 02/18/18at 15:50; Start 02/13/18 at 00:00; Stop 02/20/18 at 21:56; Status DC Pantoprazole Sodium (Protonix Inj) 40 mg DAILY IV PUSH Last administered on at 10:30; Start 02/13/18 at 09:00; Stop 03/03/18 at 23:59; Status DC Miscellaneous Information ([facility] Nursing Information) 1 [id number] XX ; Start at 00:00 Chlorhexidine Gluconate (Chlorhexidine 2% Cloth) 3 pack Taper DAILY@04 TOP Last administered on 02/27/18at 03:16; Start 02/13/18 at 04:00; Stop 02/09/19 at 03:59 Chlorhexidine Gluconate (Chlorhexidine 2% Cloth) 3 pack UNSCH PRN TOP HYGIENIC CARE; Start 02/13/18 at 00:00 Piperacillin Sod/ Tazobactam Sod 50 ml @ 100 mls/hr Q6H IV Last administered on 02/13/18at 09:56; Start 02/13/18 at 04:00; Stop 02/13/18 at 13:40; Status DC Heparin Sodium (Porcine) (Heparin Inj) 5,000 units Q8HR SQ Last administered on 02/20/18at 21:52; Start 02/13/18 at 06:00; Stop 02/21/18 at 02:20; Status DC Pharmacy Profile Note 0 ml @ 0 mls/hr UNSCH OTHER ; Start 02/13/18 at 04:30; Stop 02/14/18 at 09:10; Status DC Vancomycin HCl 1250 mg/Sodium Chloride 262.5 ml @ 250 mls/hr ONCE ONCE IV Last administered on 02/13/18at 05:24; Start 02/13/18 at 04:30; Stop 02/13/18 at 05:32; Status DC Vancomycin HCl 1000 mg/Sodium Chloride 250 ml @ 250 mls/hr ONCE ONCE IV Last administered on 02/13/18at 08:46; Start 02/13/18 at 07:15; Stop 02/13/18 at 08:14 ; Status DC Vancomycin HCl 2000 mg/Sodium Chloride 520 ml @ 250 mls/hr Q24H IV Last administered on 02/14/18at 05:00; Start 02/14/18 at 06:00; Stop 02/14/18 at 09:10; Status DC Miscellaneous Information ([facility] Pharmacy Ordered Lab Info) SPECIFIC LAB TO BE ... ONCE ONCE .XX ; Start 02/16/18 at 05:45; Stop 02/16/18 at 05:45; Status DC Oxycodone HCl (Roxicodone) 5 mg Q4H PRN PO pain 1-5 Last administered on at 11:58; Start 02/13/18 at 09:00; Stop 03/01/18 at 13:22; Status DC Hydromorphone HCl (Dilaudid Pf Inj) 0.2 mg Q4H PRN IV PUSH pain 6-10 or not taking po Last administered on 03/01/18at 15:44; Start 02/13/18 at 09:00 Acetaminophen (Tylenol) 650 mg Q4H PRN PO temp greater than 101 Last administered on 02/27/18at 12:45; Start 02/13/18 at 10:45 Labetalol HCl (Trandate Inj) 20 mg Q2H PRN IV PUSH SBP > 160 Last administered on 02/27/18at 05:13; Start 02/13/18 at 11:00 Guaifenesin (Mucinex Er) 600 mg BID PO Last administered on 02/22/18at 08:54; Start 02/13/18 at 11:00; Stop 02/22/18 at 15:52; Status DC Benzocaine/Menthol (Cepacol Extra Sia (Sugar Free)) 1 lozenge Q1H PRN BUCCAL COUGH Last administered on 02/13/18at 11:03; Start 02/13/18 at 11:00 Diphenhydramine HCl (Benadryl Inj) 25 mg ONCE ONCE IV PUSH Last administered on 02/13/18at 12:00; Start 02/13/18 at 12:00; Stop 02/13/18 at 12:01; Status DC Albuterol/ Ipratropium (Duoneb Neb) 1 ampule Q4HR NEB INH Last administered on 02/17/18at 10:54; Start 02/13/18 at 12:00; Stop 02/17/18 at 11:59; Status DC Insulin Aspart (NovoLOG SUPPLEMENTAL SCALE) 1 Q6HR SQ Last administered on at 05:38; Start 02/13/18 at 12:15; Stop 02/21/18 at 09:57; Status DC Dextrose (D50w (Syr) Inj) 50 ml UNSCH PRN IV PUSH HYPOGLYCEMIA-SEE COMMENTS; Start 02/13/18 at 12:15; Stop 02/21/18 at 10:02; Status DC Glucagon (Glucagon Inj) 1 mg UNSCH PRN OTHER HYPOGLYCEMIA-SEE COMMENTS; Start 02/13/18 at 12:15; Stop 02/21/18 at 10:02; Status DC Lorazepam (Ativan Inj) 2 mg STK-MED ONCE .ROUTE ; Start 02/13/18 at 12:47; Stop 02/13/18 at 12:48; Status DC Lorazepam (Ativan Inj) 1 mg NOW ONCE IV PUSH Last administered on 02/13/18at 13 :15; Start 02/13/18 at 13:15; Stop 02/13/18 at 13:16; Status DC Lorazepam (Ativan Inj) 1 mg ONCE ONCE IV PUSH Last administered on 02/13/18at 13:15; Start 02/13/18 at 13:15; Stop 02/13/18 at 13:16; Status DC Furosemide (Lasix Inj) 40 mg STAT ONCE IV PUSH Last administered on 02/13/18at 15:29; Start 02/13/18 at 15:30; Stop 02/13/18 at 15:31; Status DC Succinylcholine Chloride (Quelicin Inj) 100 mg ONCE ONCE IV Last administered on 02/13/18at 21:20; Start 02/13/18 at 20:00; Stop 02/13/18 at 20:01; Status DC Propofol 100 ml @ 3.66 mls/hr TITRATE PRN IV SEDATION Last administered on 02/19at 13:45; Start 02/13/18 at 19:45 Chlorhexidine Gluconate (Peridex 0.12% Liq) 15 ml BID@08,20 MT Last administered on 03/05/18at 08:00; Start 02/14/18 at 08:00 Fentanyl Citrate 250 ml @ 5 mls/hr TITRATE PRN IV SEDATION Last administered on 02/19/18at 09:08; Start 02/13/18 at 21:15 Sodium Bicarbonate 150 meq/Dextrose 1,150 ml @ 100 mls/hr [id number] IV Last administered on 02/16/18at 08:59; Start 02/13/18 at 22:00; Stop 02/16/18 at 09:14; Status DC Oxacillin Sodium 2 gm/Sodium Chloride 100 ml @ 200 mls/hr Q4H IV Last administered on 02/16/18at 07:51; Start 02/14/18 at 10:00; Stop 02/16/18 at 10:43; Status DC Gadodiamide (Omniscan Pf Inj) 20 ml STK-MED ONCE IVCONTRAST Last administered on 02/14/18at 18:42; Start 02/14/18 at 18:40; Stop 02/14/18 at 18:41; Status DC Ceftaroline Fosamil 300 mg/ Sodium Chloride 100 ml @ 100 mls/hr Q8H IV Last administered on 02/19/18at 14:26; Start 02/16/18 at 12:00; Stop 02/19/18 at 18:12; Status DC Cefazolin Sodium/ Dextrose 50 ml @ 100 mls/hr Q8H IV ; Start 02/16/18 at 11:00; Status Cancel Cefazolin Sodium/ Dextrose 50 ml @ 100 mls/hr Q12H IV Last administered on at 12:03; Start 02/16/18 at 13:00; Stop 03/01/18 at 13:56; Status DC Furosemide (Lasix Inj) 40 mg ONCE ONCE IV PUSH Last administered on 02/16/18at 15:23; Start 02/16/18 at 15:00; Stop 02/16/18 at 15:01; Status DC Furosemide (Lasix Inj) 40 mg ONCE ONCE IV PUSH Last administered on 02/17/18at 08:33; Start 02/17/18 at 07:00; Stop 02/17/18 at 07:09; Status DC Sodium Chloride 1,000 ml @ 0 mls/hr Q0M PRN OTHER For Prime & Rinse Back Last administered on 02/28/18at 18:50; Start 02/17/18 at 11:29 Heparin Sodium (Porcine) (Heparin Inj) 8,000 units UNSCH PRN IV FLUSH WITH DIALYSIS; Start 02/17/18 at 11:30 Sodium Chloride 1,000 ml @ 200 mls/hr Q5H PRN IV WITH DIALYSIS; Start 02/17/18 at 11:29 Sodium Chloride 1,000 ml @ 0 mls/hr Q0M PRN OTHER WITH DIALYSIS; Start 02/17/18 at 11:29 Albumin Human 100 ml @ 60 mls/hr UNSCH PRN IV WITH DIALYSIS Last administered on 02/28/18at 18:50; Start 02/17/18 at 11:30 Sodium Chloride (NS Flush) 5 ml UNSCH PRN IV FLUSH WITH DIALYSIS; Start at 11:30 Heparin Sodium (Porcine) (Heparin Inj) UNSCH PRN .XX WITH DIALYSIS Last administered on 02/22/18at 10:29; Start 02/17/18 at 11:30 Gentamicin Sulfate (Gentamicin Inj) 20 mg UNSCH PRN OTHER WITH DIALYSIS Last administered on 02/22/18at 10:30; Start 02/17/18 at 11:30 Ondansetron HCl (Zofran Odt) 4 mg UNSCH PRN PO WITH DIALYSIS; Start 02/17/18 at 12:00 Acetaminophen (Tylenol) 650 mg UNSCH PRN PO for headach, pain, temp > 101F; Start 02/17/18 at 11:30 Diphenhydramine HCl (Benadryl) 25 mg UNSCH PRN PO for hives/itching/anaphylaxis ; Start 02/17/18 at 11:30 Nitroglycerin (Nitrostat Sl) 0.4 mg UNSCH PRN SL CHEST PAIN; Start 02/17/18 at 11:30 Clonidine (Catapres) 0.1 mg UNSCH PRN PO for BP > 180/100 X 2 readings Last administered on 02/24/18at 03:50; Start 02/17/18 at 11:30 Gelatin (Gelfoam 12 Mm/7 Mm Top) 1 foam UNSCH PRN TOP SEE LABEL COMMENTS; Start 02/17/18 at 11:30 Heparin Sodium (Porcine) (*HEPARIN INJ Periprocedural ONLY) 10,000 units STK- MED ONCE .ROUTE Last administered on 02/17/18at 13:15; Start 02/17/18 at 13:02; Stop 02/17/18 at 13:03; Status DC Sodium Chloride (NS Flush) UNSCH PRN IV FLUSH SEE PROTOCOL; Start 02/17/18 at 13:30 Heparin Sodium (Porcine) (Heparin Inj) UNSCH PRN IV FLUSH SEE PROTOCOL; Start 02/17/18 at 13:30 Sennosides (Senna Liq) 8.8 mg DAILY PO Last administered on 03/04/18at 08:53; Start 02/17/18 at 15:30; Stop 03/04/18 at 14:09; Status DC Docusate Sodium (Colace Liq) 100 mg Q12HR PO Last administered on 03/04/18at 08: 53; Start 02/17/18 at 21:00; Stop 03/04/18 at 14:09; Status DC Insulin Detemir (Levemir Inj) 5 units Q12HR SQ Last administered on 02/19/18at 01 :01; Start 02/18/18 at 09:00; Stop 02/19/18 at 08:04; Status DC Insulin Detemir (Levemir Inj) 10 units Q12HR SQ Last administered on 02/20/18at 07:59; Start 02/19/18 at 09:00; Stop 02/20/18 at 12:31; Status DC Metoprolol Tartrate (Lopressor) 25 mg Q12HR PO Last administered on 03/05/18at 08:53; Start 02/19/18 at 09:00 Dexmedetomidine HCl 200 mcg/ Sodium Chloride 50 ml @ 6.6 mls/hr TITRATE PRN IV Desired RASS Last administered on 02/19/18at 23:01; Start 02/19/18 at 11:00; Stop 02/19/18 at 23:07; Status DC Furosemide (Lasix Inj) 80 mg DAILY IV PUSH Last administered on 02/23/18at 08:39 ; Start 02/19/18 at 17:00; Stop 02/23/18 at 14:11; Status DC Daptomycin 800 mg/ Sodium Chloride 100 ml @ 200 mls/hr Q48H IV Last administered on 03/03/18at 21:43; Start 02/19/18 at 20:00; Stop 03/08/18 at 23:00 Aztreonam 500 mg/ Sodium Chloride 100 ml @ 200 mls/hr Q6H IV Last administered on 02/22/18at 15:39; Start 02/19/18 at 21:00; Stop 02/22/18 at 18:52; Status DC Micafungin Sodium 150 mg/Sodium Chloride 100 ml @ 100 mls/hr Q24H IV Last administered on 02/21/18at 21:16; Start 02/19/18 at 22:00; Stop 02/22/18 at 18:52; Status DC Dexmedetomidine HCl 1000 mcg/ Sodium Chloride 250 ml @ 6.6 mls/hr TITRATE PRN IV Desired RASS Last administered on 02/26/18at 09:43; Start 02/19/18 at 23:30 Insulin Detemir (Levemir Inj) 14 units Q12HR SQ Last administered on 02/21/18at 08:09; Start 02/20/18 at 21:00; Stop 02/21/18 at 09:57; Status DC Albuterol/ Ipratropium (Duoneb Neb) 1 ampule Q6HR NEB NEB Last administered on 02/24/18at 19:47; Start 02/20/18 at 22:00; Stop 02/24/18 at 21:59; Status DC Albuterol Sulfate (Albuterol Neb) 2.5 mg Q2HR NEB PRN NEB dyspnea; Start at 22:00 Insulin Detemir (Levemir Inj) 18 units Q12HR SQ Last administered on 02/23/18at 21:00; Start 02/21/18 at 10:00; Stop 02/24/18 at 08:43; Status DC Dextrose (D50w (Vial) Inj) 50 ml UNSCH PRN IV PUSH HYPOGLYCEMIA-SEE COMMENTS; Start 02/21/18 at 10:00 Glucagon (Glucagon Inj) 1 mg UNSCH PRN OTHER HYPOGLYCEMIA-SEE COMMENTS; Start 02/21/18 at 10:00 Insulin Human Regular (NovoLIN R SUPPLEMENTAL SCALE) 1 Q4H SQ Last administered on 03/04/18at 13:07; Start 02/21/18 at 10:00; Stop 03/04/18 at 14:41 ; Status DC Hydralazine HCl (Apresoline) 50 mg Q8H PO Last administered on 02/22/18at 08:54; Start 02/21/18 at 10:00; Stop 02/22/18 at 15:52; Status DC Artificial Tears (Lacrilube Opht Oint) 1 applic Q12HR EACH EYE Last administered on 03/05/18at 09:00; Start 02/22/18 at 21:00 Diatrizoate Meglum/ Diatrizoate Sod (Md Dao Liq) 18 ml ONCE ONCE PO Last administered on 02/22/18 17:04; Start 02/22/18 at 16:00; Stop 02/22/18 at 16: 01; Status DC Hydralazine HCl (Apresoline) 75 mg Q8H PO Last administered on 03/05/18at 08:54 ; Start 02/22/18 at 18:00 Furosemide (Lasix Inj) 80 mg BID IV PUSH Last administered on 03/05/18 09:00; Start 02/23/18 at 21:00 Metoclopramide HCl (Reglan Inj) 5 mg Q8H IV Last administered on 03/01/18at 12: 03; Start 02/23/18 at 21:00; Stop 03/01/18 at 13:15; Status DC Insulin Detemir (Levemir Inj) 20 units Q12HR SQ Last administered on 03/05/18at 09:00; Start 02/24/18 at 09:00 Heparin Sodium (Porcine) (Heparin Inj) 5,000 units Q12HR SQ Last administered on 03/05/18at 09:00; Start 02/24/18 at 09:00 Methylnaltrexone Earle (Relistor Inj) 12 mg ONCE ONCE SQ Last administered on 02/24/18at 11:24; Start 02/24/18 at 10:00; Stop 02/24/18 at 10:01; Status DC Fosphenytoin Sodium (Cerebyx Inj) 200 mgpe Q12H IV Last administered on at 06:20; Start 03/01/18 at 06:00; Stop 03/05/18 at 09:25; Status DC Fosphenytoin Sodium 1000 mgpe/ Sodium Chloride 70 ml @ 280 mls/hr ONCE ONCE IV Last administered on 02/28/18at 22:40; Start 02/28/18 at 18:00; Stop at 18:14; Status DC Chlorothiazide Sodium (Diuril Inj) 500 mg ONCE ONCE IV Last administered on at 15:41; Start 03/01/18 at 13:15; Stop 03/01/18 at 13:19; Status DC Oxycodone/ Acetaminophen (Percocet 7.5-325 Mg) 1 tab Q4H PRN PO PAIN SCALE 5 TO 10 Last administered on 03/05/18at 08:55; Start 03/01/18 at 13:30 Cefazolin Sodium 1000 mg/Sodium Chloride 100 ml @ 200 mls/hr Q24H IV Last administered on 03/04/18at 13:09; Start 03/03/18 at 14:00 Ondansetron HCl (Zofran Odt) 4 mg Q6H PRN PO NAUSEA Last administered on 06:24; Start 03/01/18 at 18:15 Chlorothiazide Sodium (Diuril Inj) 500 mg ONCE ONCE IV Last administered on at 12:54; Start 03/02/18 at 12:30; Stop 03/02/18 at 12:31; Status DC Pantoprazole Sodium (Protonix) 40 mg DAILY PO Last administered on 03/05/18at 08 :53; Start 03/04/18 at 09:00 Heparin Sodium (Porcine) (*HEPARIN INJ Periprocedural ONLY) 10,000 units STK- MED ONCE .ROUTE Last administered on 03/03/18at 14:50; Start 03/03/18 at 14:36; Stop 03/03/18 at 14:37; Status DC Sodium Chloride (NS Flush) UNSCH PRN IV FLUSH SEE PROTOCOL; Start 03/03/18 at 15:00 Heparin Sodium (Porcine) (Heparin Inj) UNSCH PRN IV FLUSH SEE PROTOCOL; Start 03/03/18 at 15:00 Senna/Docusate Sodium (Crissy-Colace) 2 tab BID PO Last administered on at 14:24; Start 03/04/18 at 13:45 Polyethylene Glycol (Miralax) 17 gm DAILY PO Last administered on 03/04/18at 14: 23; Start 03/04/18 at 13:45 Bisacodyl (Dulcolax Supp) 10 mg DAILY RECTAL Last administered on 03/04/18at 14: 24; Start 03/04/18 at 13:45 Magnesium Hydroxide (Milk Of Magnesia Liq) 30 ml Q6H PRN PO CONSTIPATION; Start 03/04/18 at 13:45 Dextrose (D50w (Vial) Inj) 50 ml UNSCH PRN IV PUSH HYPOGLYCEMIA-SEE COMMENTS; Start 03/04/18 at 14:30 Glucagon (Glucagon Inj) 1 mg UNSCH PRN OTHER HYPOGLYCEMIA-SEE COMMENTS; Start 03/04/18 at 14:30 Insulin Human Regular (NovoLIN R SUPPLEMENTAL SCALE) 1 ACHS SQ Last administered on 03/04/18at 22:57; Start 03/04/18 at 17:00 Levetriacetam (Keppra) 500 mg Q12H PO Last administered on 03/05/18at 10:00; Start 03/05/18 at 10:00 Date of Insertion: February 13, 2018 A/P Assessment and Plan 62 years old Acute SZ episode Metabolic encephalopathy - Head CT/MRI negative - neuro check q 4 - Neurology ff Dr. Rutherford - on IV Cerebryx Severe Sepsis present on admission Mitral valve endocarditis, MSSA MSSA high grade bacteremia. Bilateral LE cellulitis. Ho Rt foot hardware infection VAS cath was removed MRI w/o osteomyelitis in either feet ID ff- on Ancef AND DAPTOMYCIN Acute renal failure oliguric-- not recovering secondary to rhabdomyolysis and sepsis, meds oxacillin, vanco etc. - on HD- vas cath removed - due to sepsis - Renal ff - IR consulted today for Vascath replacement then HD right after - eventually will need permcath placed for permament HD once cleared with ID Metabolic Encephalopathy- gradually improving - appreciate Dr. Elizabeth- neuropsychology seeing patient - Cognitive therapy Nausea- likely from uremia acute resp failure on vent.- resolved off vent Elevated LFTs- trending down. - ff periodically CAD s/p CABG History of chronic pain- on further discussion with family- no history of narcotic reaction but refused to be on it - scared of being addicted - prn pain meds - MRI no acute disease Constipation -start meds for constipation scheduled DC planning- patient will need rehab Discharge Planning Mann Vallejo DO Mar 05, 2018 14:44
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
[2018-03-05] MEDS: DAPTOmycin INJ 800 MG in SODIUM CHLORIDE 0.9% INJ 100 ML IV SCH (23:07)
[2018-03-06] VITALS (9 sets, daily range): BP systolic 132–146; BP diastolic 67–78; PULSE 72–94; RESP 16–18; TEMP 97.2–98.3; O2SAT 94–96
[2018-03-06] MEDS: hydrALAZINE HCL 25 MG TAB PO SCH ×3 (02:00→18:09)
[2018-03-06] MEDS: CHLORHEXIDINE GLUCONATE 2 % 1 PACK (2 CLOTHS) TOP SCH (04:00)
[2018-03-06] MEDS: oxyCODONE/ACETAMINOPHEN 7.5 MG/325 MG TAB PO PRN ×3 (06:05→20:57)
[2018-03-06 07:27] LABS: AUTOMATED NEUTROPHIL # 5.7 TH/MM3 (1.8-7.7); BASOPHIL # 0.1 TH/MM3 (0-0.2); EOSINOPHIL # 0.5 TH/MM3 (0-0.4); EOSINOPHIL % 5.7 % (0.0-4.0); HEMATOCRIT 29.6 % (39.0-51.0); HEMOGLOBIN 9.9 GM/DL (13.0-17.0); LYMPH % 13.5 % (9.0-44.0); LYMPHOCYTE # 1.1 TH/MM3 (1.0-4.8); MEAN CELL VOLUME 83.3 FL (80.0-100.0); MEAN CORPUSCULAR HGB CONC 33.6 % (32.0-36.0); MEAN PLATELET VOLUME 8.9 FL (7.0-11.0); MONO % 7.7 % (0.0-8.0); MONOCYTE # 0.6 TH/MM3 (0-0.9); NEUT % 72.1 % (16.0-70.0); PLATELET COUNT 244 TH/MM3 (150-450); RED BLOOD COUNT 3.56 MIL/MM3 (4.50-5.90); RED CELL DISTRIBUTION WIDTH 15.2 % (11.6-17.2); WHITE BLOOD COUNT 7.9 TH/MM3 (4.0-11.0)
[2018-03-06] MEDS: CHLORHEXIDINE 0.12% (ORAL KIT) 15 ML CUP MT SCH ×2 (08:00→20:00)
[2018-03-06 08:29] LABS: ALBUMIN 2.8 GM/DL (3.4-5.0); ALKALINE PHOSPHATASE 95 U/L (45-117); ALT (GPT) LESS THAN 6 U/L (12-78); AST (GOT) 20 U/L (15-37); BICARBONATE 27.3 MEQ/L (21.0-32.0); BLOOD UREA NITROGEN 58 MG/DL (7-18); CALCIUM 8.4 MG/DL (8.5-10.1); CHLORIDE 94 MEQ/L (98-107); GLOMERULAR FILTRATION RATE 12 ML/MIN (>89); GLUCOSE,RANDOM 154 MG/DL (74-106); MAGNESIUM 2.1 MG/DL (1.5-2.5); PHOSPHORUS 6.6 MG/DL (2.5-4.9); SODIUM (NA) 132 MEQ/L (136-145); TOTAL BILIRUBIN ADULT 0.4 MG/DL (0.2-1.0); TOTAL PROTEIN 7.7 GM/DL (6.4-8.2)
[2018-03-06] MEDS: ARTIFICIAL TEARS OPTH OINT 3.5 APPLIC/3.5 GM TUBO EACH EYE SCH ×2 (09:00→20:55)
--- NOTE | 2018-03-06 10:16 | RADRPT ---
EXAM DATE: 03/06/2018 10:09 AM EDT AGE/SEX: 62 years / Male INDICATIONS: Dysphagia. CLINICAL DATA: This is the patient's subsequent encounter. Patient reports that signs and symptoms h ave been present for 1 week and indicates a pain score of 0/10. MEDICAL/SURGICAL HISTORY: Diabetes mellitus type II. Carcinoma, colon. CHF. GI bleed. GERD . Colectomy COMPARISON: No prior exams available for comparison. FLUORO TIME: 1.4 minutes IMAGE COUNT: 0 FINDINGS: A modified barium swallow was performed with speech pathology. Patient was given a variety of liquids to swallow. For a full detailed report, see report by the speech pathologist. CONCLUSION: No aspiration or penetration was seen. Electronically signed by: Gilmar Gilmore MD 03/06/2018 10:15 AM EDT
[2018-03-06] MEDS: INSULIN NovoLIN REGULAR SUPPLEMENTAL SCALE SQ SCH ×4 (11:00→20:54)
[2018-03-06] MEDS: METOPROLOL TARTRATE 25 MG TAB PO SCH ×2 (11:02→20:54)
[2018-03-06] MEDS: FUROSEMIDE 20 MG/2 ML VIAL IV PUSH SCH ×2 (11:02→20:54)
[2018-03-06] MEDS: levETIRAcetam 500 MG TAB PO SCH ×2 (11:04→20:54)
[2018-03-06] MEDS: DOCUSATE SODIUM 50 MG/SENNA 8.6 MG TAB PO SCH ×2 (11:04→20:54)
[2018-03-06] MEDS: PANTOPRAZOLE SOD 40 MG DELAYED RELEASE TAB PO SCH (11:04)
[2018-03-06] MEDS: HEPARIN SODIUM - SQ 10,000 UNITS/ML VIAL SQ SCH ×2 (11:08→20:54)
[2018-03-06] MEDS: INSULIN DETEMIR 100 UNITS/ML VIAL SQ SCH ×2 (11:08→20:55)
[2018-03-06] MEDS: POLYETHYLENE GLYCOL 17 GM PKG PO SCH (11:09)
[2018-03-06] MEDS: BISACODYL 10 MG SUPP RECTAL SCH (11:09)
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
--- NOTE | 2018-03-06 12:21 | HHI.PR ---
Subjective Remarks - More alert today Family is concerned about wound on right lower extremity will consult wound care will need SNF at discharge A.m. labs Discussed with RN and case management and family Having constipation - HAD BMS LAST NIGHT- NOW HAVING LOOSE STOOLS DW RN AND PT AND FAMILY WILL NEED TREATMENT FOR ENDOCARDITIS NO OSTEOMYELITIS OF BL LE SPEECH FOR SWALLOW EVALUATIONS 03-06 NO LONGER CONSTIPATED DW RN AND PT AND OCCUPATIONAL THERAPY AND FAMILY MECHANICAL SOFT DIET WITH THIN LIQUIDS PER SPEECH Objective Vitals Vital Signs Date Time Temp Pulse Resp B/P (MAP) Pulse Ox O2 Delivery O2 Flow Rate FiO2 03/06/18 10:50 96 21 03/06/18 04:00 86 03/06/18 00:00 94 03/05/18 22:00 Nasal Cannula 3.00 03/05/18 21:46 98.5 93 18 159/82 (107) 95 03/05/18 21:40 96 Nasal Cannula 3.00 03/05/18 20:00 89 03/05/18 17:31 Nasal Cannula 3.00 03/05/18 16:06 97.3 76 18 128/66 (86) 96 I/O 03/05/18 03/05/18 03/05/18 03/06/18 03/06/18 03/06/18 07:00 15:00 23:00 07:00 15:00 23:00 Intake Total 150 ml 600 ml 120 ml Output Total 3000 ml Balance 150 ml -2400 ml 120 ml Intake Oral 150 ml 600 ml 120 ml Hemodialysis 3000 ml # Voids 2 3 2 # Bowel Movements 2 0 1 Result Diagram: 03/06/18 0644 03/06/18 0644 Other Results Laboratory Tests Test 03/04/18 04:36 03/05/18 04:00 03/05/18 05:30 03/06/18 06:44 Blood Urea Nitrogen 68 MG/DL 85 MG/DL 58 MG/DL Creatinine 6.02 MG/DL 6.68 MG/DL 5.00 MG/DL Random Glucose 200 MG/DL 155 MG/DL 154 MG/DL Calcium Level 8.5 MG/DL 8.3 MG/DL 8.4 MG/DL Sodium Level 132 MEQ/L 129 MEQ/L 132 MEQ/L Potassium Level 4.6 MEQ/L 5.5 MEQ/L 4.5 MEQ/L Chloride Level 92 MEQ/L 90 MEQ/L 94 MEQ/L Carbon Dioxide Level 23.8 MEQ/L 24.0 MEQ/L 27.3 MEQ/L Anion Gap 16 MEQ/L 15 MEQ/L 11 MEQ/L Estimat Glomerular Filtration Rate 10 ML/MIN 8 ML/MIN 12 ML/MIN Phenytoin (Dilantin) Level 2.2 MCG/ML 2.1 MCG/ML Stool C. difficile Toxin (PCR) NEGATIVE Stl C. difficile Toxin Epiderm 027 PRESUMPTIVE NEGATIVE White Blood Count 10.5 TH/MM3 7.9 TH/MM3 Red Blood Count 3.64 MIL/MM3 3.56 MIL/MM3 Hemoglobin 10.2 GM/DL 9.9 GM/DL Hematocrit 30.4 % 29.6 % Mean Corpuscular Volume 83.7 FL 83.3 FL Mean Corpuscular Hemoglobin 28.0 PG 28.0 PG Mean Corpuscular Hemoglobin Concent 33.4 % 33.6 % Red Cell Distribution Width 15.0 % 15.2 % Platelet Count 313 TH/MM3 244 TH/MM3 Mean Platelet Volume 9.0 FL 8.9 FL Neutrophils (%) (Auto) 74.3 % 72.1 % Lymphocytes (%) (Auto) 11.1 % 13.5 % Monocytes (%) (Auto) 8.4 % 7.7 % Eosinophils (%) (Auto) 5.6 % 5.7 % Basophils (%) (Auto) 0.6 % 1.0 % Neutrophils # (Auto) 7.8 TH/MM3 5.7 TH/MM3 Lymphocytes # (Auto) 1.2 TH/MM3 1.1 TH/MM3 Monocytes # (Auto) 0.9 TH/MM3 0.6 TH/MM3 Eosinophils # (Auto) 0.6 TH/MM3 0.5 TH/MM3 Basophils # (Auto) 0.1 TH/MM3 0.1 TH/MM3 CBC Comment DIFF FINAL DIFF FINAL Differential Comment Albumin 2.8 GM/DL 2.8 GM/DL Phosphorus Level 8.1 MG/DL 6.6 MG/DL Magnesium Level 2.1 MG/DL 2.1 MG/DL Total Protein 7.7 GM/DL Alkaline Phosphatase 95 U/L Aspartate Amino Transf (AST/SGOT) 20 U/L Alanine Aminotransferase (ALT/SGPT) LESS THAN 6 U/L Total Bilirubin 0.4 MG/DL Imaging Last Impressions Modified Barium Swallow 03/06/18 0000 Signed Impressions: CONCLUSION: No aspiration or penetration was seen. Catheter Placement X-Ray 03/03/18 0000 Signed Impressions: CONCLUSION: 1. Uncomplicated vas catheter placement for dialysis as above. Abdomen X-Ray 03/02/18 0000 Signed Impressions: CONCLUSION: No acute abdominal abnormality is identified. Thoracic Spine MRI 03/01/18 0000 Signed Impressions: CONCLUSION: 1. Examination within normal limits for age. No canal or foraminal stenosis. N o discrete disc protrusion. Lumbar Spine MRI 03/01/18 0000 Signed Impressions: CONCLUSION: 1. At L3-4 there is a superior endplate depression or Schmorl's node at L4 wit h disc bulge and osteophytic ridging resulting in a mild central canal and righ t lateral recess and foraminal stenosis. 2. At L4-5 there is facet arthropathy with mild lateral recess stenosis. 3. No acute fracture. Conus medullaris intact. Neck Magnetic Resonance Angiography 02/28/18 0000 Signed Impressions: CONCLUSION: 1. Smooth mild to moderate stenosis proximal left internal carotid artery. Dif ferential diagnosis includes atherosclerotic plaque formation and arthritis. __ Percent stenosis is calculated using the diameter of the stenotic region over t he diameter of the normal distal internal carotid artery __ Head Magnetic Resonance Angiography 02/28/18 0000 Signed Impressions: CONCLUSION: 1. Examination within normal limits for age. Head CT 02/28/18 0000 Signed Impressions: CONCLUSION: 1. Central and cortical atrophy with periventricular ischemic changes, negativ e for acute process. Brain MRI 02/28/18 0000 Signed Impressions: CONCLUSION: 1. Symmetric atrophy. 2. Mastoiditis. 3. No acute intracranial findings. Chest X-Ray 02/26/18 0600 Signed Impressions: CONCLUSION: No significant interval change with persistent mild patchy left lung base opaci ty. Abdomen/Pelvis CT 02/22/18 Signed Impressions: CONCLUSION: 1. Small bilateral pleural effusions with dependent atelectasis and consolidat ion in both lungs. 2. Mild ileus. Liver Ultrasound 02/17/18 Signed Impressions: CONCLUSION: 1. Hepatomegaly with coarsened liver echotexture. No focal liver lesion is heath ntified. 2. Mild splenomegaly. Foot MRI 02/14/18 Signed Impressions: CONCLUSION: 1. Diffuse subcutaneous edema of the foot with mild enhancement along the dors al aspect of the foot. This could represent cellulitis. No abscess is identifie d and there are no findings to indicate osteomyelitis. 2. There is some degree of osseous fusion at the tibiotalar joint and there is severe degenerative change at the subtalar joint and talonavicular joint. 3. Old healed fracture of the fifth metatarsal. Foot X-Ray 02/13/18 Signed Impressions: CONCLUSION: 1. There is a transverse fracture through the mid fifth metatarsal. Adjacent p eriosteal reaction is present suggesting that it is subacute or chronic. 2. There has been prior arthrodesis of the subtalar joint and tibiotalar joint s with osseous fusion. Hypertrophic osteophytes are present at the talonavicula r joint. Cervical Spine CT 02/12/18 Signed Impressions: CONCLUSION: Unremarkable study except for slight degenerative spondylosis. CT Angiography 02/12/18 Signed Impressions: CONCLUSION: 1. Possible nodules within the thyroid gland mainly on the right side. 2. Slight fatty liver. 3. No definite pulmonary embolus. Objective Remarks GENERAL: More alert today moving left upper extremities giving a thumbs up quite lethargic still SKIN: Warm and dry. Multiple wounds bilateral lower extremities right more so than left HEAD: Atraumatic. Normocephalic. EYES: Pupils equal and round. No scleral icterus. No injection or drainage. ENT: No nasal bleeding or discharge. Mucous membranes pink and moist. NECK: Trachea midline. No JVD. Right sided hemodialysis catheter in place CARDIOVASCULAR: Regular rate and rhythm. S1-S2 no S3 or S4 RESPIRATORY: No accessory muscle use. Clear to auscultation. Breath sounds equal bilaterally. GASTROINTESTINAL: Abdomen soft, non-tender, nondistended. Hepatic and splenic margins not palpable. MUSCULOSKELETAL: Extremities without clubbing, cyanosis, or edema. No obvious deformities. Edema +2 bilateral lower extremities with wounds dressed NEUROLOGICAL: Awake and alert. No obvious cranial nerve deficits. Motor grossly within normal limits. 3 OUT of 5 muscle strength in the arms and legs. ABNormal speech. PSYCHIATRIC: INAppropriate mood and affect; insight and judgment ABnormal. Quite lethargic Procedures (1) Acute renal failure Post Procedure Diagnosis: (1) Acute renal failure Procedure Date: Mar 03, 2018 Supervising Radiologist: Gio Winston Estimated blood loss: 3cc Anesthesia: Local Plan of Activity Patient to Unit: Nursing Unit Patient Condition: Poor Additional Comments: Right Ij vascath placed without difficulty. catheter in good position OK for use. Full dictated report to follow See PACS Report for procedural detail/treatment Gio Winston MD Mar 03, 2018 14:56 Medications and IVs Current Medications Sodium Chloride (NS Flush) 2 ml UNSCH PRN IV FLUSH FLUSH AFTER USING IV ACCESS Last administered on 03/03/18at 10:30; Start 02/12/18 at 21:45 Sodium Chloride 1,000 ml @ 999 mls/hr BOLUS ONCE IV Last administered on 02/12 21:58; Start 02/12/18 at 21:45; Stop 02/12/18 at 22:45; Status DC Metoclopramide HCl (Reglan Inj) 10 mg ONCE ONCE IV PUSH Last administered on 22:05; Start 02/12/18 at 21:45; Stop 02/12/18 at 21:46; Status DC Acetaminophen (Tylenol Supp) 650 mg ONCE ONCE RECTAL Last administered on 02/12 21:58; Start 02/12/18 at 21:45; Stop 02/12/18 at 21:46; Status DC Piperacillin Sod/ Tazobactam Sod 100 ml @ 200 mls/hr ONCE ONCE IV Last administered on 02/12/18 22:06; Start 02/12/18 at 21:45; Stop 02/12/18 at 22:14 ; Status DC Nitroglycerin (Nitroglycerin 2% Oint) 1 inch ONCE ONCE TOPICAL Last administered on 02/12/18at 22:49; Start 02/12/18 at 22:45; Stop 02/12/18 at 22:46 ; Status DC Furosemide (Lasix Inj) 40 mg ONCE ONCE IV PUSH ; Start 02/12/18 at 22:45; Stop 02/12/18 at 22:45; Status DC Hydromorphone HCl (Dilaudid Pf Inj) 1 mg ONCE ONCE IV PUSH Last administered on 02/12/18at 23:30; Start 02/12/18 at 23:00; Stop 02/12/18 at 23:01; Status DC Iohexol (Omnipaque 350 Inj) 100 ml STK-MED ONCE IVCONTRAST Last administered on 02/12/18at 23:32; Start 02/12/18 at 23:32; Stop 02/12/18 at 23:33; Status DC Sodium Chloride 1,000 ml @ 999 mls/hr BOLUS ONCE IV Last administered on 02/12at 23:57; Start 02/12/18 at 23:45; Stop 02/13/18 at 00:45; Status DC Pantoprazole Sodium (Protonix Inj) 40 mg ONCE ONCE IV PUSH Last administered on 02/12/18at 23:58; Start 02/12/18 at 23:45; Stop 02/12/18 at 23:46; Status DC Aspirin (Aspirin Chew) 162 mg ONCE ONCE CHEW Last administered on 02/13/18at 00 :19; Start 02/13/18 at 00:00; Stop 02/13/18 at 00:01; Status DC Lactated Ringer's 1,000 ml @ 150 mls/hr Q6H40M IV Last administered on at 21:20; Start 02/13/18 at 00:00; Stop 02/13/18 at 22:00; Status DC Potassium Chloride 100 ml @ 50 mls/hr Q2H PRN IV For Potassium 2.8 - 3.2 mEq/L ; Start 02/13/18 at 00:00; Stop 02/15/18 at 13:50; Status DC Potassium Chloride 100 ml @ 50 mls/hr Q2H PRN IV For Potassium 2.8 - 3.2 mEq/ L Last administered on 02/13/18at 17:08; Start 02/13/18 at 00:00; Stop 02/15/18 at 13:50; Status DC Potassium Bicarb/ Potassium Chloride (K-Lyte Cl Eff) 50 meq UNSCH PRN PO For Potassium 3.3 - 3.5 mEq/L; Start 02/13/18 at 00:00; Stop 02/15/18 at 13:50; Status DC Potassium Chloride 100 ml @ 25 mls/hr UNSCH PRN IV For Potassium 3.3 - 3.5 mEq /L; Start 02/13/18 at 00:00; Stop 02/15/18 at 13:50; Status DC Potassium Chloride 100 ml @ 50 mls/hr Q2H PRN IV For Potassium 3.3 - 3.5 mEq/L ; Start 02/13/18 at 00:00; Stop 02/15/18 at 13:50; Status DC Magnesium Sulfate 4 gm/Sodium Chloride 100 ml @ 50 mls/hr UNSCH PRN IV For Magnesium 0.9 - 1.1 mg/dL; Start 02/13/18 at 00:00; Stop 02/15/18 at 13:50; Status DC Magnesium Oxide (Mag-Ox) 800 mg UNSCH PRN PO For Magnesium 1.2 - 1.6 mg/dL; Start 02/13/18 at 00:00; Stop 02/15/18 at 13:50; Status DC Magnesium Sulfate 2 gm/Sodium Chloride 100 ml @ 50 mls/hr UNSCH PRN IV For Magnesium 1.2 - 1.6 mg/dL; Start 02/13/18 at 00:00; Stop 02/15/18 at 13:50; Status DC Potassium Phosphate (K-Phos) 2,000 mg Q4H PRN PO For Phosphorus < 2.5 mg/dL; Start 02/13/18 at 00:00; Stop 02/15/18 at 13:50; Status DC Sodium Phosphate 30 mmol/Sodium Chloride 250 ml @ 42 mls/hr UNSCH PRN IV For Phosphorus < 2.5 mg/dL; Start 02/13/18 at 00:00; Stop 02/15/18 at 13:50; Status DC Potassium Phosphate (K-Phos) 2,000 mg UNSCH PRN PO/TUBE SEE LABEL COMMENTS; Start 02/13/18 at 00:00; Stop 02/15/18 at 13:50; Status DC Potassium Phosphate 30 mmol/ Sodium Chloride 260 ml @ 42 mls/hr UNSCH PRN IV SEE LABEL COMMENTS; Start 02/13/18 at 00:00; Stop 02/15/18 at 13:50; Status DC Dextrose (D50w (Vial) Inj) 25 ml UNSCH PRN IV PUSH HYPOGLYCEMIA-SEE COMMENTS; Start 02/13/18 at 00:00; Stop 02/13/18 at 12:14; Status DC Insulin Human Regular (NovoLIN R SUPPLEMENTAL SCALE) 1 ACHS AND 3AM SQ Last administered on 02/13/18at 08:00; Start 02/13/18 at 03:00; Stop 02/13/18 at 12:04 ; Status DC Albuterol/ Ipratropium (Duoneb Neb) 1 ampule Q6HR NEB INH Last administered on 02/13/18at 08:08; Start 02/13/18 at 04:00; Stop 02/13/18 at 11:51; Status DC Albuterol/ Ipratropium (Duoneb Neb) 1 ampule Q2HR NEB PRN INH WHEEZING Last administered on 02/18/18at 15:50; Start 02/13/18 at 00:00; Stop 02/20/18 at 21:56; Status DC Pantoprazole Sodium (Protonix Inj) 40 mg DAILY IV PUSH Last administered on at 10:30; Start 02/13/18 at 09:00; Stop 03/03/18 at 23:59; Status DC Miscellaneous Information ([facility] Nursing Information) 1 [id number] ; Start at 00:00 Chlorhexidine Gluconate (Chlorhexidine 2% Cloth) 3 pack Taper DAILY@04 TOP Last administered on 02/27/18at 03:16; Start 02/13/18 at 04:00; Stop 02/09/19 at 03:59 Chlorhexidine Gluconate (Chlorhexidine 2% Cloth) 3 pack UNSCH PRN TOP HYGIENIC CARE; Start 02/13/18 at 00:00 Piperacillin Sod/ Tazobactam Sod 50 ml @ 100 mls/hr Q6H IV Last administered on 02/13/18at 09:56; Start 02/13/18 at 04:00; Stop 02/13/18 at 13:40; Status DC Heparin Sodium (Porcine) (Heparin Inj) 5,000 units Q8HR SQ Last administered on 02/20/18at 21:52; Start 02/13/18 at 06:00; Stop 02/21/18 at 02:20; Status DC Pharmacy Profile Note 0 ml @ 0 mls/hr UNSCH OTHER ; Start 02/13/18 at 04:30; Stop 02/14/18 at 09:10; Status DC Vancomycin HCl 1250 mg/Sodium Chloride 262.5 ml @ 250 mls/hr ONCE ONCE IV Last administered on 02/13/18at 05:24; Start 02/13/18 at 04:30; Stop 02/13/18 at 05:32; Status DC Vancomycin HCl 1000 mg/Sodium Chloride 250 ml @ 250 mls/hr ONCE ONCE IV Last administered on 02/13/18at 08:46; Start 02/13/18 at 07:15; Stop 02/13/18 at 08:14 ; Status DC Vancomycin HCl 2000 mg/Sodium Chloride 520 ml @ 250 mls/hr Q24H IV Last administered on 02/14/18at 05:00; Start 02/14/18 at 06:00; Stop 02/14/18 at 09:10; Status DC Miscellaneous Information ([facility] Pharm[facility] Ordered Lab Info) SPECIFIC LAB TO BE BERTHA... ONCE ONCE .XX ; Start 02/16/18 at 05:45; Stop 02/16/18 at 05:45; Status DC Oxycodone HCl (Roxicodone) 5 mg Q4H PRN PO pain 1-5 Last administered on at 11:58; Start 02/13/18 at 09:00; Stop 03/01/18 at 13:22; Status DC Hydromorphone HCl (Dilaudid Pf Inj) 0.2 mg Q4H PRN IV PUSH pain 6-10 or not taking po Last administered on 03/01/18at 15:44; Start 02/13/18 at 09:00 Acetaminophen (Tylenol) 650 mg Q4H PRN PO temp greater than 101 Last administered on 02/27/18at 12:45; Start 02/13/18 at 10:45 Labetalol HCl (Trandate Inj) 20 mg Q2H PRN IV PUSH SBP > 160 Last administered on 02/27/18at 05:13; Start 02/13/18 at 11:00 Guaifenesin (Mucinex Er) 600 mg BID PO Last administered on 02/22/18at 08:54; Start 02/13/18 at 11:00; Stop 02/22/18 at 15:52; Status DC Benzocaine/Menthol (Cepacol Extra Sia (Sugar Free)) 1 lozenge Q1H PRN BUCCAL COUGH Last administered on 02/13/18at 11:03; Start 02/13/18 at 11:00 Diphenhydramine HCl (Benadryl Inj) 25 mg ONCE ONCE IV PUSH Last administered on 02/13/18at 12:00; Start 02/13/18 at 12:00; Stop 02/13/18 at 12:01; Status DC Albuterol/ Ipratropium (Duoneb Neb) 1 ampule Q4HR NEB INH Last administered on 02/17/18at 10:54; Start 02/13/18 at 12:00; Stop 02/17/18 at 11:59; Status DC Insulin Aspart (NovoLOG SUPPLEMENTAL SCALE) 1 Q6HR SQ Last administered on at 05:38; Start 02/13/18 at 12:15; Stop 02/21/18 at 09:57; Status DC Dextrose (D50w (Syr) Inj) 50 ml UNSCH PRN IV PUSH HYPOGLYCEMIA-SEE COMMENTS; Start 02/13/18 at 12:15; Stop 02/21/18 at 10:02; Status DC Glucagon (Glucagon Inj) 1 mg UNSCH PRN OTHER HYPOGLYCEMIA-SEE COMMENTS; Start 02/13/18 at 12:15; Stop 02/21/18 at 10:02; Status DC Lorazepam (Ativan Inj) 2 mg STK-MED ONCE .ROUTE ; Start 02/13/18 at 12:47; Stop 02/13/18 at 12:48; Status DC Lorazepam (Ativan Inj) 1 mg NOW ONCE IV PUSH Last administered on 02/13/18at 13 :15; Start 02/13/18 at 13:15; Stop 02/13/18 at 13:16; Status DC Lorazepam (Ativan Inj) 1 mg ONCE ONCE IV PUSH Last administered on 02/13/18at 13:15; Start 02/13/18 at 13:15; Stop 02/13/18 at 13:16; Status DC Furosemide (Lasix Inj) 40 mg STAT ONCE IV PUSH Last administered on 02/13/18at 15:29; Start 02/13/18 at 15:30; Stop 02/13/18 at 15:31; Status DC Succinylcholine Chloride (Quelicin Inj) 100 mg ONCE ONCE IV Last administered on 02/13/18at 21:20; Start 02/13/18 at 20:00; Stop 02/13/18 at 20:01; Status DC Propofol 100 ml @ 3.66 mls/hr TITRATE PRN IV SEDATION Last administered on 02/19at 13:45; Start 02/13/18 at 19:45 Chlorhexidine Gluconate (Peridex 0.12% Liq) 15 ml BID@08,20 MT Last administered on 03/05/18at 08:00; Start 02/14/18 at 08:00 Fentanyl Citrate 250 ml @ 5 mls/hr TITRATE PRN IV SEDATION Last administered on 02/19/18at 09:08; Start 02/13/18 at 21:15 Sodium Bicarbonate 150 meq/Dextrose 1,150 ml @ 100 mls/hr [id number] IV Last administered on 02/16/18at 08:59; Start 02/13/18 at 22:00; Stop 02/16/18 at 09:14; Status DC Oxacillin Sodium 2 gm/Sodium Chloride 100 ml @ 200 mls/hr Q4H IV Last administered on 02/16/18at 07:51; Start 02/14/18 at 10:00; Stop 02/16/18 at 10:43; Status DC Gadodiamide (Omniscan Pf Inj) 20 ml STK-MED ONCE IVCONTRAST Last administered on 02/14/18at 18:42; Start 02/14/18 at 18:40; Stop 02/14/18 at 18:41; Status DC Ceftaroline Fosamil 300 mg/ Sodium Chloride 100 ml @ 100 mls/hr Q8H IV Last administered on 02/19/18at 14:26; Start 02/16/18 at 12:00; Stop 02/19/18 at 18:12; Status DC Cefazolin Sodium/ Dextrose 50 ml @ 100 mls/hr Q8H IV ; Start 02/16/18 at 11:00; Status Cancel Cefazolin Sodium/ Dextrose 50 ml @ 100 mls/hr Q12H IV Last administered on at 12:03; Start 02/16/18 at 13:00; Stop 03/01/18 at 13:56; Status DC Furosemide (Lasix Inj) 40 mg ONCE ONCE IV PUSH Last administered on 02/16/18at 15:23; Start 02/16/18 at 15:00; Stop 02/16/18 at 15:01; Status DC Furosemide (Lasix Inj) 40 mg ONCE ONCE IV PUSH Last administered on 02/17/18at 08:33; Start 02/17/18 at 07:00; Stop 02/17/18 at 07:09; Status DC Sodium Chloride 1,000 ml @ 0 mls/hr Q0M PRN OTHER For Prime & Rinse Back Last administered on 02/28/18at 18:50; Start 02/17/18 at 11:29 Heparin Sodium (Porcine) (Heparin Inj) 8,000 units UNSCH PRN IV FLUSH WITH DIALYSIS; Start 02/17/18 at 11:30 Sodium Chloride 1,000 ml @ 200 mls/hr Q5H PRN IV WITH DIALYSIS; Start 02/17/18 at 11:29 Sodium Chloride 1,000 ml @ 0 mls/hr Q0M PRN OTHER WITH DIALYSIS; Start 02/17/18 at 11:29 Albumin Human 100 ml @ 60 mls/hr UNSCH PRN IV WITH DIALYSIS Last administered on 02/28/18at 18:50; Start 02/17/18 at 11:30 Sodium Chloride (NS Flush) 5 ml UNSCH PRN IV FLUSH WITH DIALYSIS; Start at 11:30 Heparin Sodium (Porcine) (Heparin Inj) UNSCH PRN .XX WITH DIALYSIS Last administered on 02/22/18at 10:29; Start 02/17/18 at 11:30 Gentamicin Sulfate (Gentamicin Inj) 20 mg UNSCH PRN OTHER WITH DIALYSIS Last administered on 02/22/18at 10:30; Start 02/17/18 at 11:30 Ondansetron HCl (Zofran Odt) 4 mg UNSCH PRN PO WITH DIALYSIS; Start 02/17/18 at 12:00 Acetaminophen (Tylenol) 650 mg UNSCH PRN PO for headach, pain, temp > 101F; Start 02/17/18 at 11:30 Diphenhydramine HCl (Benadryl) 25 mg UNSCH PRN PO for hives/itching/anaphylaxis ; Start 02/17/18 at 11:30 Nitroglycerin (Nitrostat Sl) 0.4 mg UNSCH PRN SL CHEST PAIN; Start 02/17/18 at 11:30 Clonidine (Catapres) 0.1 mg UNSCH PRN PO for BP > 180/100 X 2 readings Last administered on 02/24/18at 03:50; Start 02/17/18 at 11:30 Gelatin (Gelfoam 12 Mm/7 Mm Top) 1 foam UNSCH PRN TOP SEE LABEL COMMENTS; Start 02/17/18 at 11:30 Heparin Sodium (Porcine) (*HEPARIN INJ Periprocedural ONLY) 10,000 units STK- MED ONCE .ROUTE Last administered on 02/17/18at 13:15; Start 02/17/18 at 13:02; Stop 02/17/18 at 13:03; Status DC Sodium Chloride (NS Flush) UNSCH PRN IV FLUSH SEE PROTOCOL; Start 02/17/18 at 13:30 Heparin Sodium (Porcine) (Heparin Inj) UNSCH PRN IV FLUSH SEE PROTOCOL; Start 02/17/18 at 13:30 Sennosides (Senna Liq) 8.8 mg DAILY PO Last administered on 03/04/18at 08:53; Start 02/17/18 at 15:30; Stop 03/04/18 at 14:09; Status DC Docusate Sodium (Colace Liq) 100 mg Q12HR PO Last administered on 03/04/18at 08: 53; Start 02/17/18 at 21:00; Stop 03/04/18 at 14:09; Status DC Insulin Detemir (Levemir Inj) 5 units Q12HR SQ Last administered on 02/19/18at 01 :01; Start 02/18/18 at 09:00; Stop 02/19/18 at 08:04; Status DC Insulin Detemir (Levemir Inj) 10 units Q12HR SQ Last administered on 02/20/18at 07:59; Start 02/19/18 at 09:00; Stop 02/20/18 at 12:31; Status DC Metoprolol Tartrate (Lopressor) 25 mg Q12HR PO Last administered on 03/06/18at 11:02; Start 02/19/18 at 09:00 Dexmedetomidine HCl 200 mcg/ Sodium Chloride 50 ml @ 6.6 mls/hr TITRATE PRN IV Desired RASS Last administered on 02/19/18at 23:01; Start 02/19/18 at 11:00; Stop 02/19/18 at 23:07; Status DC Furosemide (Lasix Inj) 80 mg DAILY IV PUSH Last administered on 02/23/18at 08:39 ; Start 02/19/18 at 17:00; Stop 02/23/18 at 14:11; Status DC Daptomycin 800 mg/ Sodium Chloride 100 ml @ 200 mls/hr Q48H IV Last administered on 03/05/18at 23:07; Start 02/19/18 at 20:00; Stop 03/08/18 at 23:00 Aztreonam 500 mg/ Sodium Chloride 100 ml @ 200 mls/hr Q6H IV Last administered on 02/22/18at 15:39; Start 02/19/18 at 21:00; Stop 02/22/18 at 18:52; Status DC Micafungin Sodium 150 mg/Sodium Chloride 100 ml @ 100 mls/hr Q24H IV Last administered on 02/21/18at 21:16; Start 02/19/18 at 22:00; Stop 02/22/18 at 18:52; Status DC Dexmedetomidine HCl 1000 mcg/ Sodium Chloride 250 ml @ 6.6 mls/hr TITRATE PRN IV Desired RASS Last administered on 02/26/18at 09:43; Start 02/19/18 at 23:30 Insulin Detemir (Levemir Inj) 14 units Q12HR SQ Last administered on 02/21/18at 08:09; Start 02/20/18 at 21:00; Stop 02/21/18 at 09:57; Status DC Albuterol/ Ipratropium (Duoneb Neb) 1 ampule Q6HR NEB NEB Last administered on 02/24/18at 19:47; Start 02/20/18 at 22:00; Stop 02/24/18 at 21:59; Status DC Albuterol Sulfate (Albuterol Neb) 2.5 mg Q2HR NEB PRN NEB dyspnea; Start at 22:00 Insulin Detemir (Levemir Inj) 18 units Q12HR SQ Last administered on 02/23/18at 21:00; Start 02/21/18 at 10:00; Stop 02/24/18 at 08:43; Status DC Dextrose (D50w (Vial) Inj) 50 ml UNSCH PRN IV PUSH HYPOGLYCEMIA-SEE COMMENTS; Start 02/21/18 at 10:00 Glucagon (Glucagon Inj) 1 mg UNSCH PRN OTHER HYPOGLYCEMIA-SEE COMMENTS; Start 02/21/18 at 10:00 Insulin Human Regular (NovoLIN R SUPPLEMENTAL SCALE) 1 Q4H SQ Last administered on 03/04/18at 13:07; Start 02/21/18 at 10:00; Stop 03/04/18 at 14:41 ; Status DC Hydralazine HCl (Apresoline) 50 mg Q8H PO Last administered on 02/22/18at 08:54; Start 02/21/18 at 10:00; Stop 02/22/18 at 15:52; Status DC Artificial Tears (Lacrilube Opht Oint) 1 applic Q12HR EACH EYE Last administered on 03/05/18at 23:14; Start 02/22/18 at 21:00 Diatrizoate Meglum/ Diatrizoate Sod ( Gastroview Liq) 18 ml ONCE ONCE PO Last administered on 02/22/18at 17:04; Start 02/22/18 at 16:00; Stop 02/22/18 at 16: 01; Status DC Hydralazine HCl (Apresoline) 75 mg Q8H PO Last administered on 03/06/18at 11:05 ; Start 02/22/18 at 18:00 Furosemide (Lasix Inj) 80 mg BID IV PUSH Last administered on 03/06/18at 11:02; Start 02/23/18 at 21:00 Metoclopramide HCl (Reglan Inj) 5 mg Q8H IV Last administered on 03/01/18at 12: 03; Start 02/23/18 at 21:00; Stop 03/01/18 at 13:15; Status DC Insulin Detemir (Levemir Inj) 20 units Q12HR SQ Last administered on 03/06/18at 11:08; Start 02/24/18 at 09:00 Heparin Sodium (Porcine) (Heparin Inj) 5,000 units Q12HR SQ Last administered on 03/06/18at 11:08; Start 02/24/18 at 09:00 Methylnaltrexone [place] (Relistor Inj) 12 mg ONCE ONCE SQ Last administered on 02/24/18 11:24; Start 02/24/18 at 10:00; Stop 02/24/18 at 10:01; Status DC Fosphenytoin Sodium (Cerebyx Inj) 200 mgpe Q12H IV Last administered on 06:20; Start 03/01/18 at 06:00; Stop 03/05/18 at 09:25; Status DC Fosphenytoin Sodium 1000 mgpe/ Sodium Chloride 70 ml @ 280 mls/hr ONCE ONCE IV Last administered on 02/28/18at 22:40; Start 02/28/18 at 18:00; Stop at 18:14; Status DC Chlorothiazide Sodium (Diuril Inj) 500 mg ONCE ONCE IV Last administered on at 15:41; Start 03/01/18 at 13:15; Stop 03/01/18 at 13:19; Status DC Oxycodone/ Acetaminophen (Percocet 7.5-325 Mg) 1 tab Q4H PRN PO PAIN SCALE 5 TO 10 Last administered on 03/06/18 11:03; Start 03/01/18 at 13:30 Cefazolin Sodium 1000 mg/Sodium Chloride 100 ml @ 200 mls/hr Q24H IV Last administered on 03/05/18 14:00; Start 03/03/18 at 14:00 Ondansetron HCl (Zofran Odt) 4 mg Q6H PRN PO NAUSEA Last administered on at 06:24; Start 03/01/18 at 18:15 Chlorothiazide Sodium (Diuril Inj) 500 mg ONCE ONCE IV Last administered on at 12:54; Start 03/02/18 at 12:30; Stop 03/02/18 at 12:31; Status DC Pantoprazole Sodium (Protonix) 40 mg DAILY PO Last administered on 03/06/18at 11 :04; Start 03/04/18 at 09:00 Heparin Sodium (Porcine) (*HEPARIN INJ Periprocedural ONLY) 10,000 units STK- MED ONCE .ROUTE Last administered on 03/03/18at 14:50; Start 03/03/18 at 14:36; Stop 03/03/18 at 14:37; Status DC Sodium Chloride (NS Flush) UNSCH PRN IV FLUSH SEE PROTOCOL; Start 03/03/18 at 15:00 Heparin Sodium (Porcine) (Heparin Inj) UNSCH PRN IV FLUSH SEE PROTOCOL; Start 03/03/18 at 15:00 Senna/Docusate Sodium (Crissy-Colace) 2 tab BID PO Last administered on at 11:04; Start 03/04/18 at 13:45 Polyethylene Glycol (Miralax) 17 gm DAILY PO Last administered on 03/06/18at 11: 09; Start 03/04/18 at 13:45 Bisacodyl (Dulcolax Supp) 10 mg DAILY RECTAL Last administered on 03/06/18at 11: 09; Start 03/04/18 at 13:45 Magnesium Hydroxide (Milk Of Magnzander Liq) 30 ml Q6H PRN PO CONSTIPATION; Start 03/04/18 at 13:45 Dextrose (D50w (Vial) Inj) 50 ml UNSCH PRN IV PUSH HYPOGLYCEMIA-SEE COMMENTS; Start 03/04/18 at 14:30 Glucagon (Glucagon Inj) 1 mg UNSCH PRN OTHER HYPOGLYCEMIA-SEE COMMENTS; Start 03/04/18 at 14:30 Insulin Human Regular (NovoLIN R SUPPLEMENTAL SCALE) 1 ACHS SQ Last administered on 03/06/18at 11:00; Start 03/04/18 at 17:00 Levetriacetam (Keppra) 500 mg Q12H PO Last administered on 03/06/18at 11:04; Start 03/05/18 at 10:00 Date of Insertion: February 13, 2018 A/P Assessment and Plan 62 years old Acute SZ episode Metabolic encephalopathy - Head CT/MRI negative - neuro check q 4 - Neurology ff Dr. Rutherford - on IV Cerebryx Severe Sepsis present on admission Mitral valve endocarditis, MSSA MSSA high grade bacteremia. Bilateral LE cellulitis. Ho Rt foot hardware infection VAS cath was removed MRI w/o osteomyelitis in either feet ID ff- on Ancef AND DAPTOMYCIN Acute renal failure oliguric-- not recovering secondary to rhabdomyolysis and sepsis, meds oxacillin, vanco etc. - on HD- vas cath removed - due to sepsis - Renal ff - IR consulted today for Vascath replacement then HD right after - eventually will need permcath placed for permament HD once cleared with ID Metabolic Encephalopathy- gradually improving - appreciate Dr. Elizabeth- neuropsychology seeing patient - Cognitive therapy Nausea- likely from uremia acute resp failure on vent.- resolved off vent Elevated LFTs- trending down. - ff periodically CAD s/p CABG History of chronic pain- on further discussion with family- no history of narcotic reaction but refused to be on it - scared of being addicted - prn pain meds - MRI no acute disease Constipation -start meds for constipation scheduled Resolved DC planning- patient will need rehab Discharge Planning Mann Vallejo DO Mar 06, 2018 12:21
--- NOTE | 2018-03-06 19:11 | HHI.NPPN ---
Subjective History of Present Illness The patient is a 62 yo [place] male with PMHx of DM, CAD, CVA, BPH, HTN, Colon CA, Anemia, GERD, who was brought into this facility on 02/12/18 after brother found him down on the ground at his home for >18hrs. Unclear if he had lost consciousness or the mechanism of his fall as the patient is currently intubated and sedated. Has been diagnosed with MSSA sepsis, but source is not entirely clear. Has hardware in his right ankle but podiatry does not feel that this is the source. Underwent STEF this AM and cardiology is suspicious for mitral valve vegetation, however, formal report is pending. His admitting SCr was 1.32 and has deteriorated to 4.14 at time of consult. He is 10L to the positive and UOP is marginal. Nephrology has been consulted for management of acute renal failure. Appears preserved renal functions predating this admission, with baseline SCr 0.6-0.8 as per Oct 2017 admission. Interval History Pt more alert. Still encephalopathic Constipation resolving. No new issues. (Katherine Penaloza) Review of Systems General Constitutional: Fatigue (Katherine Penaloza) Objective Data Data 03/06/18 03/07/18 19:00 07:00 Intake Total 200 ml Balance 200 ml IV Total 200 ml Vital Signs Date Time Temp Pulse Resp B/P (MAP) Pulse Ox O2 Delivery O2 Flow Rate FiO2 03/06/18 16:00 97.5 83 18 132/67 (88) 94 03/06/18 16:00 83 03/06/18 15:00 Room Air 03/06/18 12:00 84 03/06/18 12:00 97.2 82 16 141/76 (97) 94 03/06/18 11:00 Room Air 03/06/18 10:50 96 21 03/06/18 08:00 82 03/06/18 08:00 97.4 81 16 143/74 (97) 96 03/06/18 07:00 Room Air 03/06/18 04:00 86 03/06/18 00:00 94 03/05/18 22:00 Nasal Cannula 3.00 03/05/18 21:46 98.5 93 18 159/82 (107) 95 03/05/18 21:40 96 Nasal Cannula 3.00 03/05/18 20:00 89 (Katherine Penaloza) -: 03/06/18 0644 03/06/18 0644 Imaging Last Impressions Modified Barium Swallow 03/06/18 0000 Signed Impressions: CONCLUSION: No aspiration or penetration was seen. Catheter Placement X-Ray 03/03/18 0000 Signed Impressions: CONCLUSION: 1. Uncomplicated vas catheter placement for dialysis as above. Abdomen X-Ray 03/02/18 0000 Signed Impressions: CONCLUSION: No acute abdominal abnormality is identified. Thoracic Spine MRI 03/01/18 0000 Signed Impressions: CONCLUSION: 1. Examination within normal limits for age. No canal or foraminal stenosis. N o discrete disc protrusion. Lumbar Spine MRI 03/01/18 0000 Signed Impressions: CONCLUSION: 1. At L3-4 there is a superior endplate depression or Schmorl's node at L4 wit h disc bulge and osteophytic ridging resulting in a mild central canal and righ t lateral recess and foraminal stenosis. 2. At L4-5 there is facet arthropathy with mild lateral recess stenosis. 3. No acute fracture. Conus medullaris intact. Neck Magnetic Resonance Angiography 02/28/18 0000 Signed Impressions: CONCLUSION: 1. Smooth mild to moderate stenosis proximal left internal carotid artery. Dif ferential diagnosis includes atherosclerotic plaque formation and arthritis. __ Percent stenosis is calculated using the diameter of the stenotic region over t he diameter of the normal distal internal carotid artery __ Head Magnetic Resonance Angiography 02/28/18 0000 Signed Impressions: CONCLUSION: 1. Examination within normal limits for age. Head CT 02/28/18 0000 Signed Impressions: CONCLUSION: 1. Central and cortical atrophy with periventricular ischemic changes, negativ e for acute process. Brain MRI 02/28/18 0000 Signed Impressions: CONCLUSION: 1. Symmetric atrophy. 2. Mastoiditis. 3. No acute intracranial findings. Chest X-Ray 02/26/18 0600 Signed Impressions: CONCLUSION: No significant interval change with persistent mild patchy left lung base opaci ty. Abdomen/Pelvis CT 02/22/18 Signed Impressions: CONCLUSION: 1. Small bilateral pleural effusions with dependent atelectasis and consolidat ion in both lungs. 2. Mild ileus. Liver Ultrasound 02/17/18 0000 Signed Impressions: CONCLUSION: 1. Hepatomegaly with coarsened liver echotexture. No focal liver lesion is heath ntified. 2. Mild splenomegaly. Foot MRI 02/14/18 0000 Signed Impressions: CONCLUSION: 1. Diffuse subcutaneous edema of the foot with mild enhancement along the dors al aspect of the foot. This could represent cellulitis. No abscess is identifie d and there are no findings to indicate osteomyelitis. 2. There is some degree of osseous fusion at the tibiotalar joint and there is severe degenerative change at the subtalar joint and talonavicular joint. 3. Old healed fracture of the fifth metatarsal. Foot X-Ray 02/13/18 Signed Impressions: CONCLUSION: 1. There is a transverse fracture through the mid fifth metatarsal. Adjacent p eriosteal reaction is present suggesting that it is subacute or chronic. 2. There has been prior arthrodesis of the subtalar joint and tibiotalar joint s with osseous fusion. Hypertrophic osteophytes are present at the talonavicula r joint. Cervical Spine CT 02/12/18 0000 Signed Impressions: CONCLUSION: Unremarkable study except for slight degenerative spondylosis. CT Angiography 02/12/18 0000 Signed Impressions: CONCLUSION: 1. Possible nodules within the thyroid gland mainly on the right side. 2. Slight fatty liver. 3. No definite pulmonary embolus. Tubes & Lines: Vas-Cath (RIJ) Medication Review Current Medications Medications (Trade) Dose Ordered Sig/Ada Route Start Time Stop Time Status Last Admin (NS Flush) 2 ml UNSCH PRN IV FLUSH 02/12/18 21:45 03/03/18 10:30 ([facility] [place] Nursing Information) 1 Q361D XX 02/13/18 00:00 (Chlorhexidine 2% Cloth) 3 pack Taper DAILY@04 TOP 02/13/18 04:00 02/09/19 03:59 02/27/18 03:16 (Chlorhexidine 2% Cloth) 3 pack UNSCH PRN TOP 02/13/18 00:00 (Dilaudid Pf Inj) 0.2 mg Q4H PRN IV PUSH 02/13/18 09:00 03/01/18 15:44 (Tylenol) 650 mg Q4H PRN PO 02/13/18 10:45 02/27/18 12:45 (Trandate Inj) 20 mg Q2H PRN IV PUSH 02/13/18 11:00 02/27/18 05:13 (Cepacol Extra Sia (Sugar Free)) 1 lozenge Q1H PRN BUCCAL 02/13/18 11:00 02/13/18 11:03 Propofol 100 ml @ 3.66 mls/hr TITRATE PRN IV 02/13/18 19:45 02/19/18 13:45 (Peridex 0.12% Liq) 15 ml BID@08,20 MT 02/14/18 08:00 03/05/18 08:00 Fentanyl Citrate 250 ml @ 5 mls/hr TITRATE PRN IV 02/13/18 21:15 02/19/18 09:08 Sodium Chloride 1,000 ml @ 0 mls/hr Q0M PRN OTHER 02/17/18 11:29 02/28/18 18:50 (Heparin Inj) 8,000 units UNSCH PRN IV FLUSH 02/17/18 11:30 Sodium Chloride 1,000 ml @ 200 mls/hr Q5H PRN IV 02/17/18 11:29 Sodium Chloride 1,000 ml @ 0 mls/hr Q0M PRN OTHER 02/17/18 11:29 Albumin Human 100 ml @ 60 mls/hr UNSCH PRN IV 02/17/18 11:30 02/28/18 18:50 (NS Flush) 5 ml UNSCH PRN IV FLUSH 02/17/18 11:30 (Heparin Inj) UNSCH PRN .XX 02/17/18 11:30 02/22/18 10:29 (Gentamicin Inj) 20 mg UNSCH PRN OTHER 02/17/18 11:30 02/22/18 10:30 (Zofran Odt) 4 mg UNSCH PRN PO 02/17/18 12:00 (Tylenol) 650 mg UNSCH PRN PO 02/17/18 11:30 (Benadryl) 25 mg UNSCH PRN PO 02/17/18 11:30 (Nitrostat Sl) 0.4 mg UNSCH PRN SL 02/17/18 11:30 (Catapres) 0.1 mg UNSCH PRN PO 02/17/18 11:30 02/24/18 03:50 (Gelfoam 12 Mm/7 Mm Top) 1 foam UNSCH PRN TOP 02/17/18 11:30 (NS Flush) UNSCH PRN IV FLUSH 02/17/18 13:30 (Heparin Inj) UNSCH PRN IV FLUSH 02/17/18 13:30 (Lopressor) 25 mg Q12HR PO 02/19/18 09:00 03/06/18 11:02 Daptomycin 800 mg/ Sodium Chloride 100 ml @ 200 mls/hr Q48H IV 02/19/18 20:00 03/08/18 23:00 03/05/18 23:07 Dexmedetomidine HCl 1000 mcg/ Sodium Chloride 250 ml @ 6.6 mls/hr TITRATE PRN IV 02/19/18 23:30 02/26/18 09:43 (Albuterol Neb) 2.5 mg Q2HR NEB PRN NEB 02/20/18 22:00 (D50w (Vial) Inj) 50 ml UNSCH PRN IV PUSH 02/21/18 10:00 (Glucagon Inj) 1 mg UNSCH PRN OTHER 02/21/18 10:00 (Lacrilube Opht Oint) 1 applic Q12HR EACH EYE 02/22/18 21:00 03/05/18 23:14 (Apresoline) 75 mg Q8H PO 02/22/18 18:00 03/06/18 18:09 (Lasix Inj) 80 mg BID IV PUSH 02/23/18 21:00 03/06/18 11:02 (Levemir Inj) 20 units Q12HR SQ 02/24/18 09:00 03/06/18 11:08 (Heparin Inj) 5,000 units Q12HR SQ 02/24/18 09:00 03/06/18 11:08 (Percocet 7.5-325 Mg) 1 tab Q4H PRN PO 03/01/18 13:30 03/06/18 11:03 Cefazolin Sodium 1000 mg/Sodium Chloride 100 ml @ 200 mls/hr Q24H IV 03/03/18 14:00 03/06/18 13:25 (Zofran Odt) 4 mg Q6H PRN PO 03/01/18 18:15 03/05/18 06:24 (Protonix) 40 mg DAILY PO 03/04/18 09:00 03/06/18 11:04 (NS Flush) UNSCH PRN IV FLUSH 03/03/18 15:00 (Heparin Inj) UNSCH PRN IV FLUSH 03/03/18 15:00 (Crissy-Colace) 2 tab BID PO 03/04/18 13:45 03/06/18 11:04 (Miralax) 17 gm DAILY PO 03/04/18 13:45 03/06/18 11:09 (Dulcolax Supp) 10 mg DAILY RECTAL 03/04/18 13:45 03/06/18 11:09 (Milk Of Magnesia Liq) 30 ml Q6H PRN PO 03/04/18 13:45 (D50w (Vial) Inj) 50 ml UNSCH PRN IV PUSH 03/04/18 14:30 (Glucagon Inj) 1 mg UNSCH PRN OTHER 03/04/18 14:30 (NovoLIN R SUPPLEMENTAL SCALE) 1 ACHS SQ 03/04/18 17:00 03/06/18 18:10 (Keppra) 500 mg Q12H PO 03/05/18 10:00 03/06/18 11:04 (Katherine Penaloza) Physical Exam General Appearance: Comfortable, Obese (Katherine Penaloza) Eyes Eye Exam: Sclera White (Katherine Penaloza) Neck Neck Exam: Trachea Midline (Katherine Penaloza) Pulmonary Resp Exam: Clear Bilaterally, Breath Sounds Equal, Decreased Bases (Katherine Penaloza) Cardiology CV Exam: Regular, Normal Sinus Rhythm (Katherine Penaloza) Gastrointestinal/Abdomen GI Exam: Soft, Non-Tender (Katherine Penaloza) Integumentary Skin Exam: Clear, Warm (Katherine Penaloza) Extremeties Extremities Exam: Trace Edema (Katherine Penaloza) Neurologic Neuro Exam: Alert, Awake (Katherine Penaloza) Assessment/Plan Problem List: (1) Acute renal failure ICD Codes: N17.9 - Acute kidney failure, unspecified Status: Chronic Plan: Still no significant improvement in renal function and the patient is still dialysis dependent. BCx negative x5 days. Will make NPO tonight after midnight and plan for conversion to PermCath tomorrow with HD after. Discussed with the patient and his sisters in detail. Medications should be adjusted for the patient's renal decline. Avoid nephrotoxic medications such as iodinated contrast dyes and NSAIDs. Avoid gadolinium. (2) Sepsis ICD Codes: A41.9 - Sepsis, unspecified organism Status: Resolved Plan: Resolved (3) Rhabdomyolysis ICD Codes: M62.82 - Rhabdomyolysis Status: Resolved Plan: Resolved (4) Adrenal nodule ICD Codes: E27.9 - Disorder of adrenal gland, unspecified Plan: Incidentally noted on CT scan. 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 (6) Ankle ulcer ICD Codes: L97.309 - Non-pressure chronic ulcer of unspecified ankle with unspecified severity Plan: Monitored by primary and wound care (Katherine Penaloza) Plan The exam, history, and the medical decision-making described in the above note were completed with the assistance of the HOME. I reviewed and agree with the findings presented. (Jeffy Brewer MD) Problem Qualifiers (1) Rhabdomyolysis: Qualified Codes: T79.6XXA - Traumatic ischemia of muscle, initial encounter Katherine Penaloza Mar 06, 2018 19:11 Jeffy Brewer MD Mar 07, 2018 16:56
[2018-03-07] VITALS (13 sets, daily range): BP systolic 128–144; BP diastolic 58–84; PULSE 75–106; RESP 16–18; TEMP 97.9–98.7; O2SAT 93–98
[2018-03-07] MEDS: hydrALAZINE HCL 25 MG TAB PO SCH ×3 (03:33→17:42)
[2018-03-07] MEDS: CHLORHEXIDINE GLUCONATE 2 % 1 PACK (2 CLOTHS) TOP SCH (04:00)
[2018-03-07 07:53] LABS: AUTOMATED NEUTROPHIL # 5.8 TH/MM3 (1.8-7.7); BASOPHIL # 0.1 TH/MM3 (0-0.2); BASOPHIL % 0.7 % (0.0-2.0); EOSINOPHIL # 0.6 TH/MM3 (0-0.4); EOSINOPHIL % 6.9 % (0.0-4.0); HEMATOCRIT 30.6 % (39.0-51.0); HEMOGLOBIN 10.4 GM/DL (13.0-17.0); LYMPH % 17.3 % (9.0-44.0); LYMPHOCYTE # 1.5 TH/MM3 (1.0-4.8); MEAN CELL VOLUME 83.4 FL (80.0-100.0); MEAN CORPUSCULAR HEMOGLOBIN 28.3 PG (27.0-34.0); MEAN CORPUSCULAR HGB CONC 33.9 % (32.0-36.0); MONO % 8.4 % (0.0-8.0); MONOCYTE # 0.7 TH/MM3 (0-0.9); NEUT % 66.7 % (16.0-70.0); PLATELET COUNT 251 TH/MM3 (150-450); RED BLOOD COUNT 3.66 MIL/MM3 (4.50-5.90); RED CELL DISTRIBUTION WIDTH 15.3 % (11.6-17.2); WHITE BLOOD COUNT 8.6 TH/MM3 (4.0-11.0)
[2018-03-07] MEDS: CHLORHEXIDINE 0.12% (ORAL KIT) 15 ML CUP MT SCH ×2 (08:00→20:00)
[2018-03-07] MEDS: INSULIN NovoLIN REGULAR SUPPLEMENTAL SCALE SQ SCH ×4 (08:00→21:26)
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
[2018-03-07 08:32] LABS: ALBUMIN 2.8 GM/DL (3.4-5.0); ALKALINE PHOSPHATASE 93 U/L (45-117); ALT (GPT) 8 U/L (12-78); AST (GOT) 19 U/L (15-37); BICARBONATE 26.8 MEQ/L (21.0-32.0); BLOOD UREA NITROGEN 76 MG/DL (7-18); CALCIUM 8.6 MG/DL (8.5-10.1); CHLORIDE 90 MEQ/L (98-107); CREATININE 5.42 MG/DL (0.60-1.30); GLOMERULAR FILTRATION RATE 11 ML/MIN (>89); GLUCOSE,RANDOM 97 MG/DL (74-106); MAGNESIUM 2.1 MG/DL (1.5-2.5); PHOSPHORUS 7.7 MG/DL (2.5-4.9); SODIUM (NA) 130 MEQ/L (136-145); TOTAL BILIRUBIN ADULT 0.4 MG/DL (0.2-1.0); TOTAL PROTEIN 7.7 GM/DL (6.4-8.2)
[2018-03-07] MEDS: POLYETHYLENE GLYCOL 17 GM PKG PO SCH (09:00)
[2018-03-07] MEDS: BISACODYL 10 MG SUPP RECTAL SCH (09:00)
[2018-03-07] MEDS: FUROSEMIDE 20 MG/2 ML VIAL IV PUSH SCH ×2 (09:00→21:03)
[2018-03-07] MEDS: DOCUSATE SODIUM 50 MG/SENNA 8.6 MG TAB PO SCH ×2 (09:00→21:02)
[2018-03-07] MEDS: ARTIFICIAL TEARS OPTH OINT 3.5 APPLIC/3.5 GM TUBO EACH EYE SCH ×2 (09:00→21:00)
[2018-03-07] MEDS: HEPARIN SODIUM - SQ 10,000 UNITS/ML VIAL SQ SCH ×2 (09:00→21:02)
[2018-03-07] MEDS: METOPROLOL TARTRATE 25 MG TAB PO SCH ×2 (09:00→21:03)
[2018-03-07] MEDS: INSULIN DETEMIR 100 UNITS/ML VIAL SQ SCH ×2 (09:00→21:00)
[2018-03-07] MEDS ORDERED: VANCOMYCIN INJ 1,000 MG in SODIUM CHLOR 0.9% 250 ML INJ 250 ML IV SCH (12:15)
[2018-03-07] MEDS ORDERED: ceFAZolin 2 GM PREMIX 50 ML IV SCH (12:15)
[2018-03-07] MEDS ORDERED: VANCOMYCIN HCL 1000 MG VIAL ONE (13:34)
[2018-03-07] MEDS ORDERED: fentaNYL CITRATE 250 MCG/5 ML AMP ONE (13:37)
[2018-03-07] MEDS ORDERED: MIDAZOLAM HCL 2 MG/2 ML VIAL ONE (13:37)
[2018-03-07] MEDS ORDERED: LIDOCAINE 1%/EPINEPHrine 1:100,000 SOLN 30 ML VIAL ONE (14:15)
--- NOTE | 2018-03-07 15:31 | HHI.PR ---
Subjective Remarks - More alert today Family is concerned about wound on right lower extremity will consult wound care will need SNF at discharge A.m. labs Discussed with RN and case management and family Having constipation 03-05 HAD BMS LAST NIGHT- NOW HAVING LOOSE STOOLS DW RN AND PT AND FAMILY WILL NEED TREATMENT FOR ENDOCARDITIS NO OSTEOMYELITIS OF BL LE SPEECH FOR SWALLOW EVALUATIONS 03-06 NO LONGER CONSTIPATED DW RN AND PT AND OCCUPATIONAL THERAPY AND FAMILY MECHANICAL SOFT DIET WITH THIN LIQUIDS PER SPEECH 03-07 HAD RIGHT SIDED PERMACATH EXCHANGED TODAY BY IR HAD HD TODAY NEEDS PT AND OT MAY NEED LTAC AT DISCHARGE Objective Vitals Vital Signs Date Time Temp Pulse Resp B/P (MAP) Pulse Ox O2 Delivery O2 Flow Rate FiO2 03/07/18 13:10 97 21 03/07/18 12:00 97.9 100 18 128/78 (95) 98 03/07/18 08:00 98.7 76 18 144/58 (86) 97 03/07/18 07:58 75 03/07/18 04:19 75 03/06/18 23:41 76 03/06/18 20:00 98.3 77 17 146/78 (100) 95 03/06/18 20:00 Room Air 03/06/18 19:58 21 03/06/18 19:44 72 03/06/18 16:00 97.5 83 18 132/67 (88) 94 03/06/18 16:00 83 I/O 03/06/18 03/06/18 03/06/18 03/07/18 03/07/18 03/07/18 07:00 15:00 23:00 07:00 15:00 23:00 Intake Total 120 ml 100 ml 100 ml 0 ml Output Total 4000 ml Balance 120 ml 100 ml 100 ml 0 ml -4000 ml Intake Oral 120 ml 0 ml IV Total 100 ml 100 ml Hemodialysis 4000 ml # Voids 2 4 # Bowel Movements 1 0 Result Diagram: 03/07/18 0637 03/07/18 0637 Other Results Laboratory Tests Test 03/05/18 04:00 03/05/18 05:30 03/06/18 06:44 03/07/18 06:37 Stool C. difficile Toxin (PCR) NEGATIVE Stl C. difficile Toxin Epiderm 027 PRESUMPTIVE NEGATIVE White Blood Count 10.5 TH/MM3 7.9 TH/MM3 8.6 TH/MM3 Red Blood Count 3.64 MIL/MM3 3.56 MIL/MM3 3.66 MIL/MM3 Hemoglobin 10.2 GM/DL 9.9 GM/DL 10.4 GM/DL Hematocrit 30.4 % 29.6 % 30.6 % Mean Corpuscular Volume 83.7 FL 83.3 FL 83.4 FL Mean Corpuscular Hemoglobin 28.0 PG 28.0 PG 28.3 PG Mean Corpuscular Hemoglobin Concent 33.4 % 33.6 % 33.9 % Red Cell Distribution Width 15.0 % 15.2 % 15.3 % Platelet Count 313 TH/MM3 244 TH/MM3 251 TH/MM3 Mean Platelet Volume 9.0 FL 8.9 FL 9.0 FL Neutrophils (%) (Auto) 74.3 % 72.1 % 66.7 % Lymphocytes (%) (Auto) 11.1 % 13.5 % 17.3 % Monocytes (%) (Auto) 8.4 % 7.7 % 8.4 % Eosinophils (%) (Auto) 5.6 % 5.7 % 6.9 % Basophils (%) (Auto) 0.6 % 1.0 % 0.7 % Neutrophils # (Auto) 7.8 TH/MM3 5.7 TH/MM3 5.8 TH/MM3 Lymphocytes # (Auto) 1.2 TH/MM3 1.1 TH/MM3 1.5 TH/MM3 Monocytes # (Auto) 0.9 TH/MM3 0.6 TH/MM3 0.7 TH/MM3 Eosinophils # (Auto) 0.6 TH/MM3 0.5 TH/MM3 0.6 TH/MM3 Basophils # (Auto) 0.1 TH/MM3 0.1 TH/MM3 0.1 TH/MM3 CBC Comment DIFF FINAL DIFF FINAL DIFF FINAL Differential Comment Blood Urea Nitrogen 85 MG/DL 58 MG/DL 76 MG/DL Creatinine 6.68 MG/DL 5.00 MG/DL 5.42 MG/DL Random Glucose 155 MG/DL 154 MG/DL 97 MG/DL Albumin 2.8 GM/DL 2.8 GM/DL 2.8 GM/DL Calcium Level 8.3 MG/DL 8.4 MG/DL 8.6 MG/DL Phosphorus Level 8.1 MG/DL 6.6 MG/DL 7.7 MG/DL Magnesium Level 2.1 MG/DL 2.1 MG/DL 2.1 MG/DL Sodium Level 129 MEQ/L 132 MEQ/L 130 MEQ/L Potassium Level 5.5 MEQ/L 4.5 MEQ/L 5.1 MEQ/L Chloride Level 90 MEQ/L 94 MEQ/L 90 MEQ/L Carbon Dioxide Level 24.0 MEQ/L 27.3 MEQ/L 26.8 MEQ/L Anion Gap 15 MEQ/L 11 MEQ/L 13 MEQ/L Estimat Glomerular Filtration Rate 8 ML/MIN 12 ML/MIN 11 ML/MIN Phenytoin (Dilantin) Level 2.1 MCG/ML Total Protein 7.7 GM/DL 7.7 GM/DL Alkaline Phosphatase 95 U/L 93 U/L Aspartate Amino Transf (AST/SGOT) 20 U/L 19 U/L Alanine Aminotransferase (ALT/SGPT) LESS THAN 6 U/L 8 U/L Total Bilirubin 0.4 MG/DL 0.4 MG/DL Imaging Last Impressions Modified Barium Swallow 03/06/18 0000 Signed Impressions: CONCLUSION: No aspiration or penetration was seen. Catheter Placement X-Ray 03/03/18 0000 Signed Impressions: CONCLUSION: 1. Uncomplicated vas catheter placement for dialysis as above. Abdomen X-Ray 03/02/18 0000 Signed Impressions: CONCLUSION: No acute abdominal abnormality is identified. Thoracic Spine MRI 03/01/18 0000 Signed Impressions: CONCLUSION: 1. Examination within normal limits for age. No canal or foraminal stenosis. N o discrete disc protrusion. Lumbar Spine MRI 03/01/18 0000 Signed Impressions: CONCLUSION: 1. At L3-4 there is a superior endplate depression or Schmorl's node at L4 wit h disc bulge and osteophytic ridging resulting in a mild central canal and righ t lateral recess and foraminal stenosis. 2. At L4-5 there is facet arthropathy with mild lateral recess stenosis. 3. No acute fracture. Conus medullaris intact. Neck Magnetic Resonance Angiography 02/28/18 0000 Signed Impressions: CONCLUSION: 1. Smooth mild to moderate stenosis proximal left internal carotid artery. Dif ferential diagnosis includes atherosclerotic plaque formation and arthritis. __ Percent stenosis is calculated using the diameter of the stenotic region over t he diameter of the normal distal internal carotid artery __ Head Magnetic Resonance Angiography 02/28/18 Signed Impressions: CONCLUSION: 1. Examination within normal limits for age. Head CT 02/28/18 0000 Signed Impressions: CONCLUSION: 1. Central and cortical atrophy with periventricular ischemic changes, negativ e for acute process. Brain MRI 02/28/18 0000 Signed Impressions: CONCLUSION: 1. Symmetric atrophy. 2. Mastoiditis. 3. No acute intracranial findings. Chest X-Ray 02/26/18 0600 Signed Impressions: CONCLUSION: No significant interval change with persistent mild patchy left lung base opaci ty. Abdomen/Pelvis CT 02/22/18 0000 Signed Impressions: CONCLUSION: 1. Small bilateral pleural effusions with dependent atelectasis and consolidat ion in both lungs. 2. Mild ileus. Liver Ultrasound 02/17/18 0000 Signed Impressions: CONCLUSION: 1. Hepatomegaly with coarsened liver echotexture. No focal liver lesion is heath ntified. 2. Mild splenomegaly. Foot MRI 02/14/18 0000 Signed Impressions: CONCLUSION: 1. Diffuse subcutaneous edema of the foot with mild enhancement along the dors al aspect of the foot. This could represent cellulitis. No abscess is identifie d and there are no findings to indicate osteomyelitis. 2. There is some degree of osseous fusion at the tibiotalar joint and there is severe degenerative change at the subtalar joint and talonavicular joint. 3. Old healed fracture of the fifth metatarsal. Foot X-Ray 02/13/18 0000 Signed Impressions: CONCLUSION: 1. There is a transverse fracture through the mid fifth metatarsal. Adjacent p eriosteal reaction is present suggesting that it is subacute or chronic. 2. There has been prior arthrodesis of the subtalar joint and tibiotalar joint s with osseous fusion. Hypertrophic osteophytes are present at the talonavicula r joint. Cervical Spine CT 02/12/18 0000 Signed Impressions: CONCLUSION: Unremarkable study except for slight degenerative spondylosis. CT Angiography 02/12/18 0000 Signed Impressions: CONCLUSION: 1. Possible nodules within the thyroid gland mainly on the right side. 2. Slight fatty liver. 3. No definite pulmonary embolus. Objective Remarks GENERAL: More alert today moving left upper extremities giving a thumbs up quite lethargic still SKIN: Warm and dry. Multiple wounds bilateral lower extremities right more so than left HEAD: Atraumatic. Normocephalic. EYES: Pupils equal and round. No scleral icterus. No injection or drainage. ENT: No nasal bleeding or discharge. Mucous membranes pink and moist. NECK: Trachea midline. No JVD. Right sided hemodialysis catheter in place CARDIOVASCULAR: Regular rate and rhythm. S1-S2 no S3 or S4 RESPIRATORY: No accessory muscle use. Clear to auscultation. Breath sounds equal bilaterally. GASTROINTESTINAL: Abdomen soft, non-tender, nondistended. Hepatic and splenic margins not palpable. MUSCULOSKELETAL: Extremities without clubbing, cyanosis, or edema. No obvious deformities. Edema +2 bilateral lower extremities with wounds dressed NEUROLOGICAL: Awake and alert. No obvious cranial nerve deficits. Motor grossly within normal limits. 3 OUT of 5 muscle strength in the arms and legs. ABNormal speech. PSYCHIATRIC: INAppropriate mood and affect; insight and judgment ABnormal. Quite lethargic Procedures (1) Acute renal failure Post Procedure Diagnosis: (1) Acute renal failure Procedure Date: Mar 03, 2018 Supervising Radiologist: Gio Winston Estimated blood loss: 3cc Anesthesia: Local Plan of Activity Patient to Unit: Nursing Unit Patient Condition: Poor Additional Comments: Right Ij vascath placed without difficulty. catheter in good position OK for use. Full dictated report to follow See PACS Report for procedural detail/treatment Gio Winston MD Mar 03, 2018 14:56 Medications and IVs Current Medications Sodium Chloride (NS Flush) 2 ml UNSCH PRN IV FLUSH FLUSH AFTER USING IV ACCESS Last administered on 03/03/18at 10:30; Start 02/12/18 at 21:45 Sodium Chloride 1,000 ml @ 999 mls/hr BOLUS ONCE IV Last administered on 02/12at 21:58; Start 02/12/18 at 21:45; Stop 02/12/18 at 22:45; Status DC Metoclopramide HCl (Reglan Inj) 10 mg ONCE ONCE IV PUSH Last administered on at 22:05; Start 02/12/18 at 21:45; Stop 02/12/18 at 21:46; Status DC Acetaminophen (Tylenol Supp) 650 mg ONCE ONCE RECTAL Last administered on 02/12at 21:58; Start 02/12/18 at 21:45; Stop 02/12/18 at 21:46; Status DC Piperacillin Sod/ Tazobactam Sod 100 ml @ 200 mls/hr ONCE ONCE IV Last administered on 02/12/18at 22:06; Start 02/12/18 at 21:45; Stop 02/12/18 at 22:14 ; Status DC Nitroglycerin (Nitroglycerin 2% Oint) 1 inch ONCE ONCE TOPICAL Last administered on 02/12/18at 22:49; Start 02/12/18 at 22:45; Stop 02/12/18 at 22:46 ; Status DC Furosemide (Lasix Inj) 40 mg ONCE ONCE IV PUSH ; Start 02/12/18 at 22:45; Stop 02/12/18 at 22:45; Status DC Hydromorphone HCl (Dilaudid Pf Inj) 1 mg ONCE ONCE IV PUSH Last administered on 02/12/18at 23:30; Start 02/12/18 at 23:00; Stop 02/12/18 at 23:01; Status DC Iohexol (Omnipaque 350 Inj) 100 ml STK-MED ONCE IVCONTRAST Last administered on 02/12/18at 23:32; Start 02/12/18 at 23:32; Stop 02/12/18 at 23:33; Status DC Sodium Chloride 1,000 ml @ 999 mls/hr BOLUS ONCE IV Last administered on 02/12at 23:57; Start 02/12/18 at 23:45; Stop 02/13/18 at 00:45; Status DC Pantoprazole Sodium (Protonix Inj) 40 mg ONCE ONCE IV PUSH Last administered on 02/12/18at 23:58; Start 02/12/18 at 23:45; Stop 02/12/18 at 23:46; Status DC Aspirin (Aspirin Chew) 162 mg ONCE ONCE CHEW Last administered on 02/13/18at 00 :19; Start 02/13/18 at 00:00; Stop 02/13/18 at 00:01; Status DC Lactated Ringer's 1,000 ml @ 150 mls/hr Q6H40M IV Last administered on at 21:20; Start 02/13/18 at 00:00; Stop 02/13/18 at 22:00; Status DC Potassium Chloride 100 ml @ 50 mls/hr Q2H PRN IV For Potassium 2.8 - 3.2 mEq/L ; Start 02/13/18 at 00:00; Stop 02/15/18 at 13:50; Status DC Potassium Chloride 100 ml @ 50 mls/hr Q2H PRN IV For Potassium 2.8 - 3.2 mEq/ L Last administered on 02/13/18at 17:08; Start 02/13/18 at 00:00; Stop 02/15/18 at 13:50; Status DC Potassium Bicarb/ Potassium Chloride (K-Lyte Cl Eff) 50 meq UNSCH PRN PO For Potassium 3.3 - 3.5 mEq/L; Start 02/13/18 at 00:00; Stop 02/15/18 at 13:50; Status DC Potassium Chloride 100 ml @ 25 mls/hr UNSCH PRN IV For Potassium 3.3 - 3.5 mEq /L; Start 02/13/18 at 00:00; Stop 02/15/18 at 13:50; Status DC Potassium Chloride 100 ml @ 50 mls/hr Q2H PRN IV For Potassium 3.3 - 3.5 mEq/L ; Start 02/13/18 at 00:00; Stop 02/15/18 at 13:50; Status DC Magnesium Sulfate 4 gm/Sodium Chloride 100 ml @ 50 mls/hr UNSCH PRN IV For Magnesium 0.9 - 1.1 mg/dL; Start 02/13/18 at 00:00; Stop 02/15/18 at 13:50; Status DC Magnesium Oxide (Mag-Ox) 800 mg UNSCH PRN PO For Magnesium 1.2 - 1.6 mg/dL; Start 02/13/18 at 00:00; Stop 02/15/18 at 13:50; Status DC Magnesium Sulfate 2 gm/Sodium Chloride 100 ml @ 50 mls/hr UNSCH PRN IV For Magnesium 1.2 - 1.6 mg/dL; Start 02/13/18 at 00:00; Stop 02/15/18 at 13:50; Status DC Potassium Phosphate (K-Phos) 2,000 mg Q4H PRN PO For Phosphorus < 2.5 mg/dL; Start 02/13/18 at 00:00; Stop 02/15/18 at 13:50; Status DC Sodium Phosphate 30 mmol/Sodium Chloride 250 ml @ 42 mls/hr UNSCH PRN IV For Phosphorus < 2.5 mg/dL; Start 02/13/18 at 00:00; Stop 02/15/18 at 13:50; Status DC Potassium Phosphate (K-Phos) 2,000 mg UNSCH PRN PO/TUBE SEE LABEL COMMENTS; Start 02/13/18 at 00:00; Stop 02/15/18 at 13:50; Status DC Potassium Phosphate 30 mmol/ Sodium Chloride 260 ml @ 42 mls/hr UNSCH PRN IV SEE LABEL COMMENTS; Start 02/13/18 at 00:00; Stop 02/15/18 at 13:50; Status DC Dextrose (D50w (Vial) Inj) 25 ml UNSCH PRN IV PUSH HYPOGLYCEMIA-SEE COMMENTS; Start 02/13/18 at 00:00; Stop 02/13/18 at 12:14; Status DC Insulin Human Regular (NovoLIN R SUPPLEMENTAL SCALE) 1 ACHS AND 3AM SQ Last administered on 02/13/18at 08:00; Start 02/13/18 at 03:00; Stop 02/13/18 at 12:04 ; Status DC Albuterol/ Ipratropium (Duoneb Neb) 1 ampule Q6HR NEB INH Last administered on 02/13/18at 08:08; Start 02/13/18 at 04:00; Stop 02/13/18 at 11:51; Status DC Albuterol/ Ipratropium (Duoneb Neb) 1 ampule Q2HR NEB PRN INH WHEEZING Last administered on 02/18/18at 15:50; Start 02/13/18 at 00:00; Stop 02/20/18 at 21:56; Status DC Pantoprazole Sodium (Protonix Inj) 40 mg DAILY IV PUSH Last administered on at 10:30; Start 02/13/18 at 09:00; Stop 03/03/18 at 23:59; Status DC Miscellaneous Information (Misc Nursing Information) 1 [id number] ; Start at 00:00 Chlorhexidine Gluconate (Chlorhexidine 2% Cloth) 3 pack Taper DAILY@04 TOP Last administered on 02/27/18at 03:16; Start 02/13/18 at 04:00; Stop 02/09/19 at 03:59 Chlorhexidine Gluconate (Chlorhexidine 2% Cloth) 3 pack UNSCH PRN TOP HYGIENIC CARE; Start 02/13/18 at 00:00 Piperacillin Sod/ Tazobactam Sod 50 ml @ 100 mls/hr Q6H IV Last administered on 02/13/18at 09:56; Start 02/13/18 at 04:00; Stop 02/13/18 at 13:40; Status DC Heparin Sodium (Porcine) (Heparin Inj) 5,000 units Q8HR SQ Last administered on 02/20/18at 21:52; Start 02/13/18 at 06:00; Stop 02/21/18 at 02:20; Status DC Pharmacy Profile Note 0 ml @ 0 mls/hr UNSCH OTHER ; Start 02/13/18 at 04:30; Stop 02/14/18 at 09:10; Status DC Vancomycin HCl 1250 mg/Sodium Chloride 262.5 ml @ 250 mls/hr ONCE ONCE IV Last administered on 02/13/18at 05:24; Start 02/13/18 at 04:30; Stop 02/13/18 at 05:32; Status DC Vancomycin HCl 1000 mg/Sodium Chloride 250 ml @ 250 mls/hr ONCE ONCE IV Last administered on 02/13/18at 08:46; Start 02/13/18 at 07:15; Stop 02/13/18 at 08:14 ; Status DC Vancomycin HCl 2000 mg/Sodium Chloride 520 ml @ 250 mls/hr Q24H IV Last administered on 02/14/18at 05:00; Start 02/14/18 at 06:00; Stop 02/14/18 at 09:10; Status DC Miscellaneous Information ([facility] Ordered Lab Info) SPECIFIC LAB TO BE .. ONCE ONCE .XX ; Start 02/16/18 at 05:45; Stop 02/16/18 at 05:45; Status DC Oxycodone HCl (Roxicodone) 5 mg Q4H PRN PO pain 1-5 Last administered on at 11:58; Start 02/13/18 at 09:00; Stop 03/01/18 at 13:22; Status DC Hydromorphone HCl (Dilaudid Pf Inj) 0.2 mg Q4H PRN IV PUSH pain 6-10 or not taking po Last administered on 03/01/18at 15:44; Start 02/13/18 at 09:00 Acetaminophen (Tylenol) 650 mg Q4H PRN PO temp greater than 101 Last administered on 02/27/18at 12:45; Start 02/13/18 at 10:45 Labetalol HCl (Trandate Inj) 20 mg Q2H PRN IV PUSH SBP > 160 Last administered on 02/27/18at 05:13; Start 02/13/18 at 11:00 Guaifenesin (Mucinex Er) 600 mg BID PO Last administered on 02/22/18at 08:54; Start 02/13/18 at 11:00; Stop 02/22/18 at 15:52; Status DC Benzocaine/Menthol (Cepacol Extra Sia (Sugar Free)) 1 lozenge Q1H PRN BUCCAL COUGH Last administered on 02/13/18at 11:03; Start 02/13/18 at 11:00 Diphenhydramine HCl (Benadryl Inj) 25 mg ONCE ONCE IV PUSH Last administered on 02/13/18at 12:00; Start 02/13/18 at 12:00; Stop 02/13/18 at 12:01; Status DC Albuterol/ Ipratropium (Duoneb Neb) 1 ampule Q4HR NEB INH Last administered on 02/17/18at 10:54; Start 02/13/18 at 12:00; Stop 02/17/18 at 11:59; Status DC Insulin Aspart (NovoLOG SUPPLEMENTAL SCALE) 1 Q6HR SQ Last administered on at 05:38; Start 02/13/18 at 12:15; Stop 02/21/18 at 09:57; Status DC Dextrose (D50w (Syr) Inj) 50 ml UNSCH PRN IV PUSH HYPOGLYCEMIA-SEE COMMENTS; Start 02/13/18 at 12:15; Stop 02/21/18 at 10:02; Status DC Glucagon (Glucagon Inj) 1 mg UNSCH PRN OTHER HYPOGLYCEMIA-SEE COMMENTS; Start 02/13/18 at 12:15; Stop 02/21/18 at 10:02; Status DC Lorazepam (Ativan Inj) 2 mg STK-MED ONCE .ROUTE ; Start 02/13/18 at 12:47; Stop 02/13/18 at 12:48; Status DC Lorazepam (Ativan Inj) 1 mg NOW ONCE IV PUSH Last administered on 02/13/18at 13 :15; Start 02/13/18 at 13:15; Stop 02/13/18 at 13:16; Status DC Lorazepam (Ativan Inj) 1 mg ONCE ONCE IV PUSH Last administered on 02/13/18at 13:15; Start 02/13/18 at 13:15; Stop 02/13/18 at 13:16; Status DC Furosemide (Lasix Inj) 40 mg STAT ONCE IV PUSH Last administered on 02/13/18at 15:29; Start 02/13/18 at 15:30; Stop 02/13/18 at 15:31; Status DC Succinylcholine Chloride (Quelicin Inj) 100 mg ONCE ONCE IV Last administered on 02/13/18at 21:20; Start 02/13/18 at 20:00; Stop 02/13/18 at 20:01; Status DC Propofol 100 ml @ 3.66 mls/hr TITRATE PRN IV SEDATION Last administered on 02/19at 13:45; Start 02/13/18 at 19:45 Chlorhexidine Gluconate (Peridex 0.12% Liq) 15 ml BID@08,20 MT Last administered on 03/05/18at 08:00; Start 02/14/18 at 08:00 Fentanyl Citrate 250 ml @ 5 mls/hr TITRATE PRN IV SEDATION Last administered on 02/19/18at 09:08; Start 02/13/18 at 21:15 Sodium Bicarbonate 150 meq/Dextrose 1,150 ml @ 100 mls/hr [id number] IV Last administered on 02/16/18at 08:59; Start 02/13/18 at 22:00; Stop 02/16/18 at 09:14; Status DC Oxacillin Sodium 2 gm/Sodium Chloride 100 ml @ 200 mls/hr Q4H IV Last administered on 02/16/18at 07:51; Start 02/14/18 at 10:00; Stop 02/16/18 at 10:43; Status DC Gadodiamide (Omniscan Pf Inj) 20 ml STK-MED ONCE IVCONTRAST Last administered on 02/14/18at 18:42; Start 02/14/18 at 18:40; Stop 02/14/18 at 18:41; Status DC Ceftaroline Fosamil 300 mg/ Sodium Chloride 100 ml @ 100 mls/hr Q8H IV Last administered on 02/19/18at 14:26; Start 02/16/18 at 12:00; Stop 02/19/18 at 18:12; Status DC Cefazolin Sodium/ Dextrose 50 ml @ 100 mls/hr Q8H IV ; Start 02/16/18 at 11:00; Status Cancel Cefazolin Sodium/ Dextrose 50 ml @ 100 mls/hr Q12H IV Last administered on at 12:03; Start 02/16/18 at 13:00; Stop 03/01/18 at 13:56; Status DC Furosemide (Lasix Inj) 40 mg ONCE ONCE IV PUSH Last administered on 02/16/18at 15:23; Start 02/16/18 at 15:00; Stop 02/16/18 at 15:01; Status DC Furosemide (Lasix Inj) 40 mg ONCE ONCE IV PUSH Last administered on 02/17/18at 08:33; Start 02/17/18 at 07:00; Stop 02/17/18 at 07:09; Status DC Sodium Chloride 1,000 ml @ 0 mls/hr Q0M PRN OTHER For Prime & Rinse Back Last administered on 02/28/18at 18:50; Start 02/17/18 at 11:29 Heparin Sodium (Porcine) (Heparin Inj) 8,000 units UNSCH PRN IV FLUSH WITH DIALYSIS; Start 02/17/18 at 11:30 Sodium Chloride 1,000 ml @ 200 mls/hr Q5H PRN IV WITH DIALYSIS; Start 02/17/18 at 11:29 Sodium Chloride 1,000 ml @ 0 mls/hr Q0M PRN OTHER WITH DIALYSIS; Start 02/17/18 at 11:29 Albumin Human 100 ml @ 60 mls/hr UNSCH PRN IV WITH DIALYSIS Last administered on 02/28/18at 18:50; Start 02/17/18 at 11:30 Sodium Chloride (NS Flush) 5 ml UNSCH PRN IV FLUSH WITH DIALYSIS; Start at 11:30 Heparin Sodium (Porcine) (Heparin Inj) UNSCH PRN .XX WITH DIALYSIS Last administered on 02/22/18at 10:29; Start 02/17/18 at 11:30 Gentamicin Sulfate (Gentamicin Inj) 20 mg UNSCH PRN OTHER WITH DIALYSIS Last administered on 02/22/18at 10:30; Start 02/17/18 at 11:30 Ondansetron HCl (Zofran Odt) 4 mg UNSCH PRN PO WITH DIALYSIS; Start 02/17/18 at 12:00 Acetaminophen (Tylenol) 650 mg UNSCH PRN PO for headach, pain, temp > 101F; Start 02/17/18 at 11:30 Diphenhydramine HCl (Benadryl) 25 mg UNSCH PRN PO for hives/itching/anaphylaxis ; Start 02/17/18 at 11:30 Nitroglycerin (Nitrostat Sl) 0.4 mg UNSCH PRN SL CHEST PAIN; Start 02/17/18 at 11:30 Clonidine (Catapres) 0.1 mg UNSCH PRN PO for BP > 180/100 X 2 readings Last administered on 02/24/18at 03:50; Start 02/17/18 at 11:30 Gelatin (Gelfoam 12 Mm/7 Mm Top) 1 foam UNSCH PRN TOP SEE LABEL COMMENTS; Start 02/17/18 at 11:30 Heparin Sodium (Porcine) (*HEPARIN INJ Periprocedural ONLY) 10,000 units STK- MED ONCE .ROUTE Last administered on 02/17/18at 13:15; Start 02/17/18 at 13:02; Stop 02/17/18 at 13:03; Status DC Sodium Chloride (NS Flush) UNSCH PRN IV FLUSH SEE PROTOCOL; Start 02/17/18 at 13:30 Heparin Sodium (Porcine) (Heparin Inj) UNSCH PRN IV FLUSH SEE PROTOCOL; Start 02/17/18 at 13:30 Sennosides (Senna Liq) 8.8 mg DAILY PO Last administered on 03/04/18at 08:53; Start 02/17/18 at 15:30; Stop 03/04/18 at 14:09; Status DC Docusate Sodium (Colace Liq) 100 mg Q12HR PO Last administered on 03/04/18at 08: 53; Start 02/17/18 at 21:00; Stop 03/04/18 at 14:09; Status DC Insulin Detemir (Levemir Inj) 5 units Q12HR SQ Last administered on 02/19/18at 01 :01; Start 02/18/18 at 09:00; Stop 02/19/18 at 08:04; Status DC Insulin Detemir (Levemir Inj) 10 units Q12HR SQ Last administered on 02/20/18at 07:59; Start 02/19/18 at 09:00; Stop 02/20/18 at 12:31; Status DC Metoprolol Tartrate (Lopressor) 25 mg Q12HR PO Last administered on 03/06/18at 20:54; Start 02/19/18 at 09:00 Dexmedetomidine HCl 200 mcg/ Sodium Chloride 50 ml @ 6.6 mls/hr TITRATE PRN IV Desired RASS Last administered on 02/19/18at 23:01; Start 02/19/18 at 11:00; Stop 02/19/18 at 23:07; Status DC Furosemide (Lasix Inj) 80 mg DAILY IV PUSH Last administered on 02/23/18at 08:39 ; Start 02/19/18 at 17:00; Stop 02/23/18 at 14:11; Status DC Daptomycin 800 mg/ Sodium Chloride 100 ml @ 200 mls/hr Q48H IV Last administered on 03/05/18at 23:07; Start 02/19/18 at 20:00; Stop 03/08/18 at 23:00 Aztreonam 500 mg/ Sodium Chloride 100 ml @ 200 mls/hr Q6H IV Last administered on 02/22/18at 15:39; Start 02/19/18 at 21:00; Stop 02/22/18 at 18:52; Status DC Micafungin Sodium 150 mg/Sodium Chloride 100 ml @ 100 mls/hr Q24H IV Last administered on 02/21/18at 21:16; Start 02/19/18 at 22:00; Stop 02/22/18 at 18:52; Status DC Dexmedetomidine HCl 1000 mcg/ Sodium Chloride 250 ml @ 6.6 mls/hr TITRATE PRN IV Desired RASS Last administered on 02/26/18at 09:43; Start 02/19/18 at 23:30 Insulin Detemir (Levemir Inj) 14 units Q12HR SQ Last administered on 02/21/18at 08:09; Start 02/20/18 at 21:00; Stop 02/21/18 at 09:57; Status DC Albuterol/ Ipratropium (Duoneb Neb) 1 ampule Q6HR NEB NEB Last administered on 02/24/18at 19:47; Start 02/20/18 at 22:00; Stop 02/24/18 at 21:59; Status DC Albuterol Sulfate (Albuterol Neb) 2.5 mg Q2HR NEB PRN NEB dyspnea; Start at 22:00 Insulin Detemir (Levemir Inj) 18 units Q12HR SQ Last administered on 02/23/18at 21:00; Start 02/21/18 at 10:00; Stop 02/24/18 at 08:43; Status DC Dextrose (D50w (Vial) Inj) 50 ml UNSCH PRN IV PUSH HYPOGLYCEMIA-SEE COMMENTS; Start 02/21/18 at 10:00 Glucagon (Glucagon Inj) 1 mg UNSCH PRN OTHER HYPOGLYCEMIA-SEE COMMENTS; Start 02/21/18 at 10:00 Insulin Human Regular (NovoLIN R SUPPLEMENTAL SCALE) 1 Q4H SQ Last administered on 03/04/18at 13:07; Start 02/21/18 at 10:00; Stop 03/04/18 at 14:41 ; Status DC Hydralazine HCl (Apresoline) 50 mg Q8H PO Last administered on 02/22/18at 08:54; Start 02/21/18 at 10:00; Stop 02/22/18 at 15:52; Status DC Artificial Tears (Lacrilube Opht Oint) 1 applic Q12HR EACH EYE Last administered on 03/06/18at 20:55; Start 02/22/18 at 21:00 Diatrizoate Meglum/ Diatrizoate Sod ( Gastroview Liq) 18 ml ONCE ONCE PO Last administered on 02/22/18at 17:04; Start 02/22/18 at 16:00; Stop 02/22/18 at 16: 01; Status DC Hydralazine HCl (Apresoline) 75 mg Q8H PO Last administered on 03/07/18at 03:33 ; Start 02/22/18 at 18:00 Furosemide (Lasix Inj) 80 mg BID IV PUSH Last administered on 03/06/18at 20:54; Start 02/23/18 at 21:00 Metoclopramide HCl (Reglan Inj) 5 mg Q8H IV Last administered on 03/01/18at 12: 03; Start 02/23/18 at 21:00; Stop 03/01/18 at 13:15; Status DC Insulin Detemir (Levemir Inj) 20 units Q12HR SQ Last administered on 03/06/18at 20:55; Start 02/24/18 at 09:00 Heparin Sodium (Porcine) (Heparin Inj) 5,000 units Q12HR SQ Last administered on 03/06/18at 20:54; Start 02/24/18 at 09:00 Methylnaltrexone [place] (Relistor Inj) 12 mg ONCE ONCE SQ Last administered on 02/24/18at 11:24; Start 02/24/18 at 10:00; Stop 02/24/18 at 10:01; Status DC Fosphenytoin Sodium (Cerebyx Inj) 200 mgpe Q12H IV Last administered on at 06:20; Start 03/01/18 at 06:00; Stop 03/05/18 at 09:25; Status DC Fosphenytoin Sodium 1000 mgpe/ Sodium Chloride 70 ml @ 280 mls/hr ONCE ONCE IV Last administered on 02/28/18at 22:40; Start 02/28/18 at 18:00; Stop at 18:14; Status DC Chlorothiazide Sodium (Diuril Inj) 500 mg ONCE ONCE IV Last administered on at 15:41; Start 03/01/18 at 13:15; Stop 03/01/18 at 13:19; Status DC Oxycodone/ Acetaminophen (Percocet 7.5-325 Mg) 1 tab Q4H PRN PO PAIN SCALE 5 TO 10 Last administered on 03/06/18at 20:57; Start 03/01/18 at 13:30 Cefazolin Sodium 1000 mg/Sodium Chloride 100 ml @ 200 mls/hr Q24H IV Last administered on 03/06/18at 13:25; Start 03/03/18 at 14:00 Ondansetron HCl (Zofran Odt) 4 mg Q6H PRN PO NAUSEA Last administered on at 06:24; Start 03/01/18 at 18:15 Chlorothiazide Sodium (Diuril Inj) 500 mg ONCE ONCE IV Last administered on at 12:54; Start 03/02/18 at 12:30; Stop 03/02/18 at 12:31; Status DC Pantoprazole Sodium (Protonix) 40 mg DAILY PO Last administered on 03/06/18at 11 :04; Start 03/04/18 at 09:00 Heparin Sodium (Porcine) (*HEPARIN INJ Periprocedural ONLY) 10,000 units STK- MED ONCE .ROUTE Last administered on 03/03/18at 14:50; Start 03/03/18 at 14:36; Stop 03/03/18 at 14:37; Status DC Sodium Chloride (NS Flush) UNSCH PRN IV FLUSH SEE PROTOCOL; Start 03/03/18 at 15:00 Heparin Sodium (Porcine) (Heparin Inj) UNSCH PRN IV FLUSH SEE PROTOCOL; Start 03/03/18 at 15:00 Senna/Docusate Sodium (Crissy-Colace) 2 tab BID PO Last administered on at 20:54; Start 03/04/18 at 13:45 Polyethylene Glycol (Miralax) 17 gm DAILY PO Last administered on 03/06/18at 11: 09; Start 03/04/18 at 13:45 Bisacodyl (Dulcolax Supp) 10 mg DAILY RECTAL Last administered on 03/06/18at 11: 09; Start 03/04/18 at 13:45 Magnesium Hydroxide (Milk Of Magnesia Liq) 30 ml Q6H PRN PO CONSTIPATION; Start 03/04/18 at 13:45 Dextrose (D50w (Vial) Inj) 50 ml UNSCH PRN IV PUSH HYPOGLYCEMIA-SEE COMMENTS; Start 03/04/18 at 14:30 Glucagon (Glucagon Inj) 1 mg UNSCH PRN OTHER HYPOGLYCEMIA-SEE COMMENTS; Start 03/04/18 at 14:30 Insulin Human Regular (NovoLIN R SUPPLEMENTAL SCALE) 1 ACHS SQ Last administered on 03/06/18at 20:54; Start 03/04/18 at 17:00 Levetriacetam (Keppra) 500 mg Q12H PO Last administered on 03/06/18at 20:54; Start 03/05/18 at 10:00 Vancomycin HCl 1000 mg/Sodium Chloride 250 ml @ 250 mls/hr HIDES INSPECTOR IV ; Start 03/07/18 at 12:15; Stop 03/11/18 at 12:14 Cefazolin Sodium/ Dextrose 50 ml @ 100 mls/hr HIDES INSPECTOR IV ; Start 03/07/18 at 12:15; Stop 03/11/18 at 12:14 Vancomycin HCl (Vancomycin Inj) 1,000 mg STK-MED ONCE .ROUTE ; Start 03/07/18 at 13:34; Stop 03/07/18 at 13:35; Status DC Midazolam HCl (Versed Inj) 2 mg STK-MED ONCE .ROUTE ; Start 03/07/18 at 13:37; Stop 03/07/18 at 13:38; Status DC Fentanyl Citrate (fentaNYL INJ) 250 mcg STK-MED ONCE .ROUTE ; Start 03/07/18 at 13:37; Stop 03/07/18 at 13:38; Status DC Heparin Sodium (Porcine) (*HEPARIN INJ Periprocedural ONLY) 10,000 units STK- MED ONCE .ROUTE ; Start 03/07/18 at 14:14; Stop 03/07/18 at 14:15; Status DC Lidocaine/ Epinephrine (Xylocaine-Epi 1%-1:100,000 Inj) 30 ml STK-MED ONCE .ROUTE ; Start 03/07/18 at 14:15; Stop 03/07/18 at 14:16; Status DC Date of Insertion: February 13, 2018 A/P Assessment and Plan 62 years old Acute SZ episode Metabolic encephalopathy - Head CT/MRI negative - neuro check q 4 - Neurology ff Dr. Rutherford - on IV Cerebryx Severe Sepsis present on admission Mitral valve endocarditis, MSSA MSSA high grade bacteremia. Bilateral LE cellulitis. Ho Rt foot hardware infection VAS cath was removed MRI w/o osteomyelitis in either feet ID ff- on Ancef AND DAPTOMYCIN Acute renal failure oliguric-- not recovering secondary to rhabdomyolysis and sepsis, meds oxacillin, vanco etc. - on HD- vas cath removed - due to sepsis - Renal ff - IR consulted today for Vascath replacement then HD right after - eventually will need permcath placed for permament HD once cleared with ID HAD PERMACATH PLACED BY IR 6- Metabolic Encephalopathy- gradually improving - appreciate Dr. Elizabeth- neuropsychology seeing patient - Cognitive therapy Nausea- likely from uremia acute resp failure on vent.- resolved off vent Elevated LFTs- trending down. - ff periodically CAD s/p CABG History of chronic pain- on further discussion with family- no history of narcotic reaction but refused to be on it - scared of being addicted - prn pain meds - MRI no acute disease Constipation -start meds for constipation scheduled Resolved DC planning- patient will need rehab Discharge Planning A.m. labs Mann Alberto DO Mar 07, 2018 15:31
[2018-03-07] MEDS ORDERED: SODIUM CHLORIDE 0.9% FLUSH 10 ML FLUSH IV FLUSH PRN (15:45)
[2018-03-07] MEDS ORDERED: HEPARIN SODIUM - IV 2,000 UNITS/2 ML VIAL IV FLUSH PRN (15:45)
--- NOTE | 2018-03-07 15:57 | RADRPT ---
EXAM DATE: 03/07/2018 3:15 PM EDT AGE/SEX: 62 years / Male INDICATIONS: Patient presents with temporary dialysis catheter in need of permanent one. CLINICAL DATA: This is the patient's sequela encounter. Patient reports that signs and symptoms have been present for 4 - 6 days and indicates a pain score of 6/10. MEDICAL/SURGICAL HISTORY: Diabetes. Hypertension. Carcinoma, colon. HyperlipidemiaBilateral lower back ulcersBPHChronic Pain Prior NSTEMIPrior GI bleedArthritis GERDCHFOld RBBB . Partial colec tomySkin grafts to right ankleLeft ankle surgery COMPARISON: . FLUORO TIME (min): .3 IMAGE SERIES: 1 ACCESS SITE: SEDATION TIME (min): 30 MEDICATION(S): 1.5mg midazolam (Versed) IV 125mcg fentanyl (Sublimaze) IV DEVICE(S): 23cm Perm cath . . PROCEDURE : 1. Fluoroscopically-guided venipuncture. 2. PermaCath placement. 3. Conscious sedation with continuous EKG and oximetry monitoring. The risks, benefits and alternatives to the procedure were explained and verbal and written consent w as obtained. The site was prepped in sterile fashion. Full sterile technique was used, including ca p, mask, sterile gloves and gown and a large sterile sheet. Hand hygiene and 2% chlorhexidine Betadi ne was utilized per protocol for cutaneous antisepsis with appropriate dry time for site. The skin a nd subcutaneous tissues were infiltrated with local anesthetic solution. Utilizing fluoroscopic guidance a dermatotomy was created over the prescribed vein. A micropuncture set was used to access the targeted vein and serial dilatation was performed to accept the prescribed length Cabrera catheter. A subcutaneous tunnel was created in a retrograde fashion the Cabrera cathet er was pulled through the tunnel. The catheter was flushed and assembled and locked with heparin. T he catheter was sutured in place. Conscious sedation was performed with the prescribed dosages and duration as above in the presence of an independent trained radiology nurse to assist in the monitoring of the patient. EKG and oximetry remained stable throughout the procedure. The patient tolerated the procedure well and there were n o complications. The patient was sent to post anesthesia recovery in stable condition. CONCLUSION: 1. Uncomplicated PermaCath placement as above. Electronically signed by: Garry Blanchard MD 03/07/2018 3:56 PM EDT
--- NOTE | 2018-03-07 16:51 | HHI.NPPN ---
Subjective History of Present Illness The patient is a 62 yo [place] male with PMHx of DM, CAD, CVA, BPH, HTN, Colon CA, Anemia, GERD, who was brought into this facility on 02/12/18 after brother found him down on the ground at his home for >18hrs. Unclear if he had lost consciousness or the mechanism of his fall as the patient is currently intubated and sedated. Has been diagnosed with MSSA sepsis, but source is not entirely clear. Has hardware in his right ankle but podiatry does not feel that this is the source. Underwent STEF this AM and cardiology is suspicious for mitral valve vegetation, however, formal report is pending. His admitting SCr was 1.32 and has deteriorated to 4.14 at time of consult. He is 10L to the positive and UOP is marginal. Nephrology has been consulted for management of acute renal failure. Appears preserved renal functions predating this admission, with baseline SCr 0.6-0.8 as per Oct 2017 admission. Interval History Patient was seen post dialysis and post hemodialysis PermCath placement today. Lying in stretcher and appearing quite comfortable. Objective Data Data 03/07/18 03/08/18 19:00 07:00 Output Total 4000 ml Balance -4000 ml Hemodialysis 4000 ml Vital Signs Date Time Temp Pulse Resp B/P (MAP) Pulse Ox O2 Delivery O2 Flow Rate FiO2 03/07/18 16:20 101 16 141/82 (101) 96 03/07/18 15:50 101 18 144/84 (104) 97 03/07/18 15:20 98 16 140/80 (100) 97 03/07/18 15:05 103 16 136/83 (100) 93 03/07/18 13:10 97 21 03/07/18 12:00 97.9 100 18 128/78 (95) 98 03/07/18 08:00 98.7 76 18 144/58 (86) 97 03/07/18 07:58 75 03/07/18 04:19 75 03/06/18 23:41 76 03/06/18 20:00 98.3 77 17 146/78 (100) 95 03/06/18 20:00 Room Air 03/06/18 19:58 21 03/06/18 19:44 72 -: 03/07/18 0637 03/07/18 0637 Tubes & Lines: Vas-Cath ([facility]) Physical Exam General Appearance: Comfortable, Obese Eyes Eye Exam: Sclera White Neck Neck Exam: Trachea Midline Pulmonary Resp Exam: Clear Bilaterally, Breath Sounds Equal, Decreased Bases Cardiology CV Exam: Regular, Normal Sinus Rhythm Gastrointestinal/Abdomen GI Exam: Soft, Non-Tender Integumentary Skin Exam: Clear, Warm Extremeties Extremities Exam: Trace Edema Neurologic Neuro Exam: Alert, Awake Assessment/Plan Discussed Condition With: Sibling Problem List: (1) Acute renal failure ICD Codes: N17.9 - Acute kidney failure, unspecified Status: Chronic Plan: Still no significant improvement in renal function and the patient is still dialysis dependent. Vas-Cath converted to a hemodialysis PermCath. Discharge planning, most likely to rehab [place] from renal point of view, however unless the patient can be transported to an outpatient dialysis facility in a wheelchair and be able to be transferred to a dialysis chair the outpatient dialysis facility will not be able to accommodate him. If this cannot be achieved the patient will need to go to a rehab facility which has dialysis services on hand as long as the patient remains dialysis dependent. Medications should be adjusted for the patient's renal decline. Avoid nephrotoxic medications such as iodinated contrast dyes and NSAIDs. Avoid gadolinium. (2) Sepsis ICD Codes: A41.9 - Sepsis, unspecified organism Status: Resolved Plan: Resolved (3) Rhabdomyolysis ICD Codes: M62.82 - Rhabdomyolysis Status: Resolved Plan: Resolved (4) Adrenal nodule ICD Codes: E27.9 - Disorder of adrenal gland, unspecified Plan: Incidentally noted on CT scan. 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 (6) Ankle ulcer ICD Codes: L97.309 - Non-pressure chronic ulcer of unspecified ankle with unspecified severity Plan: Monitored by primary and wound care Problem Qualifiers (1) Rhabdomyolysis: Qualified Codes: T79.6XXA - Traumatic ischemia of muscle, initial encounter Jeffy Brewer MD Mar 07, 2018 16:51
[2018-03-07] MEDS: oxyCODONE/ACETAMINOPHEN 7.5 MG/325 MG TAB PO PRN ×2 (17:42→21:25)
[2018-03-07] MEDS: levETIRAcetam 500 MG TAB PO SCH ×2 (17:42→21:02)
[2018-03-07] MEDS: PANTOPRAZOLE SOD 40 MG DELAYED RELEASE TAB PO SCH (17:42)
[2018-03-07] MEDS: DAPTOmycin INJ 800 MG in SODIUM CHLORIDE 0.9% INJ 100 ML IV SCH (21:01)
[2018-03-08] MEDS: hydrALAZINE HCL 25 MG TAB PO SCH ×3 (03:26→17:17)
[2018-03-08] MEDS: CHLORHEXIDINE GLUCONATE 2 % 1 PACK (2 CLOTHS) TOP SCH (04:00)
[2018-03-08 08:00] VITALS: PULSE 88
[2018-03-08] MEDS: CHLORHEXIDINE 0.12% (ORAL KIT) 15 ML CUP MT SCH ×2 (08:00→20:00)
[2018-03-08] MEDS: INSULIN NovoLIN REGULAR SUPPLEMENTAL SCALE SQ SCH ×4 (08:00→20:40)
[2018-03-08 08:36] VITALS: BP 138/69; PULSE 87; RESP 18; TEMP 97.8; O2SAT 95
[2018-03-08] MEDS: ARTIFICIAL TEARS OPTH OINT 3.5 APPLIC/3.5 GM TUBO EACH EYE SCH ×2 (08:38→20:42)
[2018-03-08] MEDS: BISACODYL 10 MG SUPP RECTAL SCH (09:00)
[2018-03-08] MEDS: POLYETHYLENE GLYCOL 17 GM PKG PO SCH (09:00)
[2018-03-08] MEDS: FUROSEMIDE 20 MG/2 ML VIAL IV PUSH SCH ×2 (09:17→20:37)
[2018-03-08] MEDS: HEPARIN SODIUM - SQ 10,000 UNITS/ML VIAL SQ SCH ×2 (09:18→20:37)
[2018-03-08] MEDS: levETIRAcetam 500 MG TAB PO SCH ×2 (09:19→21:54)
[2018-03-08] MEDS: METOPROLOL TARTRATE 25 MG TAB PO SCH ×2 (09:19→20:37)
[2018-03-08] MEDS: oxyCODONE/ACETAMINOPHEN 7.5 MG/325 MG TAB PO PRN ×2 (09:19→17:17)
[2018-03-08] MEDS: DOCUSATE SODIUM 50 MG/SENNA 8.6 MG TAB PO SCH ×2 (09:19→20:38)
[2018-03-08] MEDS: PANTOPRAZOLE SOD 40 MG DELAYED RELEASE TAB PO SCH (09:19)
[2018-03-08] MEDS: INSULIN DETEMIR 100 UNITS/ML VIAL SQ SCH ×2 (09:20→20:40)
--- NOTE | 2018-03-08 10:23 | HHI.PR ---
Subjective Remarks Patient seen and examined this morning, their vitals are stable and the patient is afebrile. Patient denies chest pain or shortness of breath. Is having some chronic back pain. Unsure of his last bowel movement. Family is at bedside. Objective Vital Signs Date Time Temp Pulse Resp B/P (MAP) Pulse Ox O2 Delivery O2 Flow Rate FiO2 03/08/18 08:36 97.8 87 18 138/69 (92) 95 03/08/18 08:00 88 03/07/18 23:00 99 03/07/18 20:00 98.6 99 18 143/66 (91) 95 03/07/18 16:24 75 03/07/18 16:20 101 16 141/82 (101) 96 03/07/18 15:50 101 18 144/84 (104) 97 03/07/18 15:20 98 16 140/80 (100) 97 03/07/18 15:05 103 16 136/83 (100) 93 03/07/18 13:10 97 21 03/07/18 12:10 106 03/07/18 12:00 97.9 100 18 128/78 (95) 98 I/O 03/07/18 03/07/18 03/07/18 03/08/18 03/08/18 03/08/18 07:00 15:00 23:00 07:00 15:00 23:00 Intake Total 0 ml 120 ml Output Total 4000 ml Balance 0 ml -4000 ml 120 ml Intake Oral 0 ml 120 ml Hemodialysis 4000 ml # Voids 4 3 # Bowel Movements 0 0 Result Diagram: 03/07/18 0637 03/07/18 0637 Imaging Last Impressions Catheter Placement X-Ray 03/07/18 0000 Signed Impressions: CONCLUSION: 1. Uncomplicated PermaCath placement as above. Modified Barium Swallow 03/06/18 0000 Signed Impressions: CONCLUSION: No aspiration or penetration was seen. Abdomen X-Ray 03/02/18 0000 Signed Impressions: CONCLUSION: No acute abdominal abnormality is identified. Thoracic Spine MRI 03/01/18 0000 Signed Impressions: CONCLUSION: 1. Examination within normal limits for age. No canal or foraminal stenosis. N o discrete disc protrusion. Lumbar Spine MRI 03/01/18 0000 Signed Impressions: CONCLUSION: 1. At L3-4 there is a superior endplate depression or Schmorl's node at L4 wit h disc bulge and osteophytic ridging resulting in a mild central canal and righ t lateral recess and foraminal stenosis. 2. At L4-5 there is facet arthropathy with mild lateral recess stenosis. 3. No acute fracture. Conus medullaris intact. Neck Magnetic Resonance Angiography 02/28/18 0000 Signed Impressions: CONCLUSION: 1. Smooth mild to moderate stenosis proximal left internal carotid artery. Dif ferential diagnosis includes atherosclerotic plaque formation and arthritis. __ Percent stenosis is calculated using the diameter of the stenotic region over t he diameter of the normal distal internal carotid artery __ Head Magnetic Resonance Angiography 02/28/18 0000 Signed Impressions: CONCLUSION: 1. Examination within normal limits for age. Head CT 02/28/18 0000 Signed Impressions: CONCLUSION: 1. Central and cortical atrophy with periventricular ischemic changes, negativ e for acute process. Brain MRI 02/28/18 0000 Signed Impressions: CONCLUSION: 1. Symmetric atrophy. 2. Mastoiditis. 3. No acute intracranial findings. Chest X-Ray 02/26/18 0600 Signed Impressions: CONCLUSION: No significant interval change with persistent mild patchy left lung base opaci ty. Abdomen/Pelvis CT 02/22/18 0000 Signed Impressions: CONCLUSION: 1. Small bilateral pleural effusions with dependent atelectasis and consolidat ion in both lungs. 2. Mild ileus. Liver Ultrasound 02/17/18 0000 Signed Impressions: CONCLUSION: 1. Hepatomegaly with coarsened liver echotexture. No focal liver lesion is heath ntified. 2. Mild splenomegaly. Foot MRI 6/1/18 0000 Signed Impressions: CONCLUSION: 1. Diffuse subcutaneous edema of the foot with mild enhancement along the dors al aspect of the foot. This could represent cellulitis. No abscess is identifie d and there are no findings to indicate osteomyelitis. 2. There is some degree of osseous fusion at the tibiotalar joint and there is severe degenerative change at the subtalar joint and talonavicular joint. 3. Old healed fracture of the fifth metatarsal. Foot X-Ray 02/13/18 Signed Impressions: CONCLUSION: 1. There is a transverse fracture through the mid fifth metatarsal. Adjacent p eriosteal reaction is present suggesting that it is subacute or chronic. 2. There has been prior arthrodesis of the subtalar joint and tibiotalar joint s with osseous fusion. Hypertrophic osteophytes are present at the talonavicula r joint. Cervical Spine CT 02/12/18 Signed Impressions: CONCLUSION: Unremarkable study except for slight degenerative spondylosis. CT Angiography 02/12/18 Signed Impressions: CONCLUSION: 1. Possible nodules within the thyroid gland mainly on the right side. 2. Slight fatty liver. 3. No definite pulmonary embolus. Objective Remarks GENERAL: Well-appearing, no acute distress SKIN: Warm and dry. Chronic wounds on bilateral ankles, dressing is clean dry and intact. HEAD: Normocephalic. EYES: No scleral icterus. No injection or drainage. NECK: Supple, trachea midline. No JVD or lymphadenopathy. Right HD catheter in place. CARDIOVASCULAR: Regular rate and rhythm without murmurs, gallops, or rubs. RESPIRATORY: Breath sounds equal bilaterally. No accessory muscle use. GASTROINTESTINAL: Abdomen soft, non-tender, appears distended. MUSCULOSKELETAL: No cyanosis, or edema. A/P Problem List: (1) Endocarditis of mitral valve ICD Code: I05.8 - Other rheumatic mitral valve diseases Status: Acute (2) Acute encephalopathy ICD Code: G93.40 - Encephalopathy, unspecified Status: Acute (3) Major neurocognitive disorder, due to vascular disease, with behavioral disturbance, mild ICD Code: F01.51 - Vascular dementia with behavioral disturbance (4) Acute renal failure ICD Code: N17.9 - Acute kidney failure, unspecified Status: Chronic (5) Sepsis ICD Code: A41.9 - Sepsis, unspecified organism Status: Resolved Assessment and Plan In summary this is a 62-year-old male patient with a medical history of her diabetes, coronary artery disease, CVA, BPH, hypertension, colon cancer, anemia , GERD, and chronic back pain and was at her only with crutches who presented to [facility] ED after his brother had found him on the floor for greater than 18 hours. It was unclear of the mechanism of his fall. Is unclear if the patient had lost consciousness. The patient was intubated and sedated upon his initial presentation. He was diagnosed with MSSA sepsis Severe sepsis. Mitral valve endocarditis MSSA bacteremia Bilateral lower extremity cellulitis History right foot infection Infectious disease: Continue Ancef, continue daptomycin stop date March 08, will need full treatment for endocarditis Acute renal failure, oliguric On hemodialysis Permacath replaced by IR on March 07 Seen and evaluated by Nephro: "Discharge planning, most likely to rehab [place] from renal point of view, however unless the patient can be transported to an outpatient dialysis facility in a wheelchair and be able to be transferred to a dialysis chair the outpatient dialysis facility will not be able to accommodate him. If this cannot be achieved the patient will need to go to a rehab facility which has dialysis services on hand as long as the patient remains dialysis dependent." Adjust all meds to renal function avoid nephrotoxic agents, contrast, NSAIDs No significant improvement in renal function, continues to be dialysis dependent Acute respiratory failure Weaned off vent Coronary disease Metabolic encephalopathy Acute seizure episode CT, MRI negative Neuropsych seen and evaluated the patient. Patient is improving from their standpoint. Discharge Planning DC pending clinical improvement Stacy Kingston MD Mar 08, 2018 10:23
[2018-03-08 12:17] VITALS: BP 158/88; PULSE 86; RESP 18; TEMP 98.4; O2SAT 96
[2018-03-08 16:17] VITALS: BP 148/86; PULSE 85; RESP 18; TEMP 98; O2SAT 95
[2018-03-08] MEDS: ONDANSETRON ODT 4 MG TAB PO PRN (19:31)
[2018-03-08 20:00] VITALS: BP 144/70; PULSE 87; PULSE 93; RESP 22; TEMP 97.6; O2SAT 97
[2018-03-08] MEDS: SODIUM CHLORIDE 0.9% FLUSH 10 ML FLUSH IV FLUSH PRN (20:38)
[2018-03-09] VITALS (9 sets, daily range): BP systolic 126–152; BP diastolic 60–77; PULSE 69–83; RESP 16–19; TEMP 96–98.3; O2SAT 93–98
[2018-03-09] MEDS: hydrALAZINE HCL 25 MG TAB PO SCH ×3 (02:02→18:06)
[2018-03-09] MEDS: oxyCODONE/ACETAMINOPHEN 7.5 MG/325 MG TAB PO PRN ×3 (02:03→21:00)
[2018-03-09] MEDS: CHLORHEXIDINE GLUCONATE 2 % 1 PACK (2 CLOTHS) TOP SCH (04:00)
[2018-03-09] MEDS: CHLORHEXIDINE 0.12% (ORAL KIT) 15 ML CUP MT SCH ×2 (07:18→20:00)
[2018-03-09] MEDS: INSULIN NovoLIN REGULAR SUPPLEMENTAL SCALE SQ SCH ×4 (08:00→21:01)
[2018-03-09 08:32] LABS: AUTOMATED NEUTROPHIL # 5.2 TH/MM3 (1.8-7.7); BASOPHIL # 0.1 TH/MM3 (0-0.2); BASOPHIL % 1.2 % (0.0-2.0); EOSINOPHIL # 0.6 TH/MM3 (0-0.4); EOSINOPHIL % 6.8 % (0.0-4.0); HEMOGLOBIN 9.7 GM/DL (13.0-17.0); LYMPH % 18.9 % (9.0-44.0); LYMPHOCYTE # 1.5 TH/MM3 (1.0-4.8); MEAN CELL VOLUME 83.7 FL (80.0-100.0); MEAN CORPUSCULAR HGB CONC 34.7 % (32.0-36.0); MEAN PLATELET VOLUME 8.7 FL (7.0-11.0); MONO % 9.3 % (0.0-8.0); MONOCYTE # 0.8 TH/MM3 (0-0.9); NEUT % 63.8 % (16.0-70.0); PLATELET COUNT 207 TH/MM3 (150-450); RED BLOOD COUNT 3.35 MIL/MM3 (4.50-5.90); RED CELL DISTRIBUTION WIDTH 15.3 % (11.6-17.2); WHITE BLOOD COUNT 8.2 TH/MM3 (4.0-11.0)
[2018-03-09] MEDS: BISACODYL 10 MG SUPP RECTAL SCH ×2 (09:00→09:49)
[2018-03-09] MEDS: ARTIFICIAL TEARS OPTH OINT 3.5 APPLIC/3.5 GM TUBO EACH EYE SCH ×2 (09:00→21:00)
[2018-03-09 09:01] LABS: BICARBONATE 25.4 MEQ/L (21.0-32.0); CREATININE 4.69 MG/DL (0.60-1.30)
--- NOTE | 2018-03-09 09:14 | HHI.PR ---
Subjective Remarks Patient seen and examined this morning, their vitals are stable and the patient is afebrile. Patient denies chest pain or shortness of breath. Patient had some urinary retention. Bladder scan performed which showed over 900 cc. Nurse reported this morning it over 2 L of urine was obtained Via Charlton catheter. The Charlton was noted to be difficult to place because of the patient' s BPH. Objective Vital Signs Date Time Temp Pulse Resp B/P (MAP) Pulse Ox O2 Delivery O2 Flow Rate FiO2 03/09/18 04:00 97.5 77 16 138/63 (88) 94 03/09/18 04:00 75 03/09/18 04:00 Room Air 03/09/18 00:00 83 03/09/18 00:00 Room Air 03/09/18 00:00 97.4 83 16 126/60 (82) 93 03/08/18 22:14 21 03/08/18 20:00 97.6 93 22 144/70 (94) 97 03/08/18 20:00 87 03/08/18 20:00 Room Air 03/08/18 16:17 98.0 85 18 148/86 (106) 95 03/08/18 15:36 21 03/08/18 12:17 98.4 86 18 158/88 (111) 96 I/O 03/08/18 03/08/18 03/08/18 03/09/18 03/09/18 03/09/18 07:00 15:00 23:00 07:00 15:00 23:00 Intake Total 120 ml 380 ml 480 ml Output Total 1200 ml 1200 ml Balance 120 ml -820 ml -720 ml Intake Oral 120 ml 380 ml 480 ml Output Urine Total 1200 ml 1200 ml Bladder Scan Volume Amount 999 ml # Voids 3 # Bowel Movements 0 0 Result Diagram: 03/09/18 0808 03/09/18 0808 Imaging Last Impressions Catheter Placement X-Ray 03/07/18 0000 Signed Impressions: CONCLUSION: 1. Uncomplicated PermaCath placement as above. Modified Barium Swallow 03/06/18 0000 Signed Impressions: CONCLUSION: No aspiration or penetration was seen. Abdomen X-Ray 03/02/18 0000 Signed Impressions: CONCLUSION: No acute abdominal abnormality is identified. Thoracic Spine MRI 03/01/18 0000 Signed Impressions: CONCLUSION: 1. Examination within normal limits for age. No canal or foraminal stenosis. N o discrete disc protrusion. Lumbar Spine MRI 03/01/18 0000 Signed Impressions: CONCLUSION: 1. At L3-4 there is a superior endplate depression or Schmorl's node at L4 wit h disc bulge and osteophytic ridging resulting in a mild central canal and righ t lateral recess and foraminal stenosis. 2. At L4-5 there is facet arthropathy with mild lateral recess stenosis. 3. No acute fracture. Conus medullaris intact. Neck Magnetic Resonance Angiography 02/28/18 0000 Signed Impressions: CONCLUSION: 1. Smooth mild to moderate stenosis proximal left internal carotid artery. Dif ferential diagnosis includes atherosclerotic plaque formation and arthritis. __ Percent stenosis is calculated using the diameter of the stenotic region over t he diameter of the normal distal internal carotid artery __ Head Magnetic Resonance Angiography 02/28/18 0000 Signed Impressions: CONCLUSION: 1. Examination within normal limits for age. Head CT 02/28/18 0000 Signed Impressions: CONCLUSION: 1. Central and cortical atrophy with periventricular ischemic changes, negativ e for acute process. Brain MRI 02/28/18 0000 Signed Impressions: CONCLUSION: 1. Symmetric atrophy. 2. Mastoiditis. 3. No acute intracranial findings. Chest X-Ray 02/26/18 0600 Signed Impressions: CONCLUSION: No significant interval change with persistent mild patchy left lung base opaci ty. Abdomen/Pelvis CT 02/22/18 0000 Signed Impressions: CONCLUSION: 1. Small bilateral pleural effusions with dependent atelectasis and consolidat ion in both lungs. 2. Mild ileus. Liver Ultrasound 02/17/18 Signed Impressions: CONCLUSION: 1. Hepatomegaly with coarsened liver echotexture. No focal liver lesion is heath ntified. 2. Mild splenomegaly. Foot MRI 02/14/18 Signed Impressions: CONCLUSION: 1. Diffuse subcutaneous edema of the foot with mild enhancement along the dors al aspect of the foot. This could represent cellulitis. No abscess is identifie d and there are no findings to indicate osteomyelitis. 2. There is some degree of osseous fusion at the tibiotalar joint and there is severe degenerative change at the subtalar joint and talonavicular joint. 3. Old healed fracture of the fifth metatarsal. Foot X-Ray 02/13/18 Signed Impressions: CONCLUSION: 1. There is a transverse fracture through the mid fifth metatarsal. Adjacent p eriosteal reaction is present suggesting that it is subacute or chronic. 2. There has been prior arthrodesis of the subtalar joint and tibiotalar joint s with osseous fusion. Hypertrophic osteophytes are present at the talonavicula r joint. Cervical Spine CT 02/12/18 Signed Impressions: CONCLUSION: Unremarkable study except for slight degenerative spondylosis. CT Angiography 02/12/18 Signed Impressions: CONCLUSION: 1. Possible nodules within the thyroid gland mainly on the right side. 2. Slight fatty liver. 3. No definite pulmonary embolus. Objective Remarks GENERAL: Well-appearing, no acute distress SKIN: Warm and dry. Chronic wounds on bilateral ankles, dressing is clean dry and intact. HEAD: Normocephalic. EYES: No scleral icterus. No injection or drainage. NECK: Supple, trachea midline. No JVD or lymphadenopathy. Right HD catheter in place. CARDIOVASCULAR: Regular rate and rhythm without murmurs, gallops, or rubs. RESPIRATORY: Breath sounds equal bilaterally. No accessory muscle use. GASTROINTESTINAL: Abdomen soft, non-tender, appears distended. : scrotal swelling noted MUSCULOSKELETAL: No cyanosis, or edema. A/P Problem List: (1) Endocarditis of mitral valve ICD Code: I05.8 - Other rheumatic mitral valve diseases Status: Acute (2) Acute encephalopathy ICD Code: G93.40 - Encephalopathy, unspecified Status: Acute (3) Major neurocognitive disorder, due to vascular disease, with behavioral disturbance, mild ICD Code: F01.51 - Vascular dementia with behavioral disturbance (4) Acute renal failure ICD Code: N17.9 - Acute kidney failure, unspecified Status: Chronic (5) Sepsis ICD Code: A41.9 - Sepsis, unspecified organism Status: Resolved Assessment and Plan In summary this is a 62-year-old male patient with a medical history of her diabetes, coronary artery disease, CVA, BPH, hypertension, colon cancer, anemia , GERD, and chronic back pain and was at her only with crutches who presented to [place] ED after his brother had found him on the floor for greater than 18 hours. It was unclear of the mechanism of his fall. Is unclear if the patient had lost consciousness. The patient was intubated and sedated upon his initial presentation. He was diagnosed with MSSA sepsis Urinary retention Charlton Add flomax Severe sepsis. Mitral valve endocarditis MSSA bacteremia, repeat blood cultures on 03/01 have been negative to date Bilateral lower extremity cellulitis History right foot infection Infectious disease: daptomycin stop date March 08, continue Ancef. Will need full treatment for endocarditis Acute renal failure, oliguric On hemodialysis Permacath replaced by IR on March 07 Seen and evaluated by Nephro: "Discharge planning, most likely to rehab okay from renal point of view, however unless the patient can be transported to an outpatient dialysis facility in a wheelchair and be able to be transferred to a dialysis chair the outpatient dialysis facility will not be able to accommodate him. If this cannot be achieved the patient will need to go to a rehab facility which has dialysis services on hand as long as the patient remains dialysis dependent." Adjust all meds to renal function avoid nephrotoxic agents, contrast, NSAIDs No significant improvement in renal function, continues to be dialysis dependent Acute respiratory failure Weaned off vent Coronary disease Metabolic encephalopathy Acute seizure episode CT, MRI negative Neuropsych seen and evaluated the patient. Patient is improving from their standpoint. Discharge Planning DC pending clinical improvement Nephrology and ID clearance Stacy Kingston MD Mar 09, 2018 09:14
[2018-03-09] MEDS: METOPROLOL TARTRATE 25 MG TAB PO SCH ×2 (09:48→20:59)
[2018-03-09] MEDS: levETIRAcetam 500 MG TAB PO SCH ×2 (09:48→20:59)
[2018-03-09] MEDS: HEPARIN SODIUM - SQ 10,000 UNITS/ML VIAL SQ SCH ×2 (09:48→21:01)
[2018-03-09] MEDS: DOCUSATE SODIUM 50 MG/SENNA 8.6 MG TAB PO SCH ×2 (09:48→21:00)
[2018-03-09] MEDS: PANTOPRAZOLE SOD 40 MG DELAYED RELEASE TAB PO SCH (09:49)
[2018-03-09] MEDS: FUROSEMIDE 20 MG/2 ML VIAL IV PUSH SCH (09:50)
[2018-03-09] MEDS: POLYETHYLENE GLYCOL 17 GM PKG PO SCH (09:50)
[2018-03-09] MEDS: INSULIN DETEMIR 100 UNITS/ML VIAL SQ SCH ×2 (09:51→21:01)
[2018-03-09] MEDS: TAMSULOSIN HCL 0.4 MG CAP PO SCH (12:14)
--- NOTE | 2018-03-09 13:53 | HHI.NPPN ---
Subjective History of Present Illness The patient is a 62 yo [place] male with PMHx of DM, CAD, CVA, BPH, HTN, Colon CA, Anemia, GERD, who was brought into this facility on 02/12/18 after brother found him down on the ground at his home for >18hrs. Unclear if he had lost consciousness or the mechanism of his fall as the patient is currently intubated and sedated. Has been diagnosed with MSSA sepsis, but source is not entirely clear. Has hardware in his right ankle but podiatry does not feel that this is the source. Underwent STEF this AM and cardiology is suspicious for mitral valve vegetation, however, formal report is pending. His admitting SCr was 1.32 and has deteriorated to 4.14 at time of consult. He is 10L to the positive and UOP is marginal. Nephrology has been consulted for management of acute renal failure. Appears preserved renal functions predating this admission, with baseline SCr 0.6-0.8 as per Oct 2017 admission. Interval History Patient lying comfortably in bed. Responding appropriately to questions and verbal commands. Somewhat tremulous on purposeful movement however. Objective Data Data Vital Signs Date Time Temp Pulse Resp B/P (MAP) Pulse Ox O2 Delivery O2 Flow Rate FiO2 03/09/18 12:17 98.3 69 19 134/65 (88) 98 03/09/18 08:17 97.7 76 19 136/63 (87) 96 03/09/18 08:00 75 03/09/18 04:00 97.5 77 16 138/63 (88) 94 03/09/18 04:00 75 03/09/18 04:00 Room Air 03/09/18 00:00 83 03/09/18 00:00 Room Air 03/09/18 00:00 97.4 83 16 126/60 (82) 93 03/08/18 22:14 21 03/08/18 20:00 97.6 93 22 144/70 (94) 97 03/08/18 20:00 87 03/08/18 20:00 Room Air 03/08/18 16:17 98.0 85 18 148/86 (106) 95 03/08/18 15:36 21 -: 03/09/18 0808 03/09/18 0808 Tubes & Lines: Vas-Cath ([facility]) Physical Exam General Appearance: Comfortable, Obese Eyes Eye Exam: Sclera White Neck Neck Exam: Trachea Midline Pulmonary Resp Exam: Clear Bilaterally, Breath Sounds Equal, Decreased Bases Cardiology CV Exam: Regular, Normal Sinus Rhythm Gastrointestinal/Abdomen GI Exam: Soft, Non-Tender Integumentary Skin Exam: Clear, Warm Extremeties Extremities Exam: Trace Edema Neurologic Neuro Exam: Alert, Awake Assessment/Plan Discussed Condition With: Sibling Problem List: (1) Acute renal failure ICD Codes: N17.9 - Acute kidney failure, unspecified Status: Chronic Plan: Patient's urine output appears to be improving and his creatinine level does show some evidence of trending downward. Some degree of renal recovery does appear to be occurring. We will tentatively hold dialysis tomorrow with repeat renal function panel. Noted Flomax has been started. Patient does appear to have tremor on purposeful movement. We will defer opinion to neurology and primary care physician however as discussed with sister. Discharge planning, most likely to rehab okay from renal point of view, however unless dialysis can be discontinued prior to discharge the patient will need be transported to an outpatient dialysis facility in a wheelchair at minimum and be able to be transferred to a dialysis chair or the outpatient dialysis facility will not be able to accommodate him. If this cannot be achieved the patient will need to go to a rehab facility which has dialysis services on hand as long as the patient remains dialysis dependent. Medications should be adjusted for the patient's renal decline. Avoid nephrotoxic medications such as iodinated contrast dyes and NSAIDs. Avoid gadolinium. (2) Sepsis ICD Codes: A41.9 - Sepsis, unspecified organism Status: Resolved Plan: Resolved (3) Rhabdomyolysis ICD Codes: M62.82 - Rhabdomyolysis Status: Resolved Plan: Resolved (4) Adrenal nodule ICD Codes: E27.9 - Disorder of adrenal gland, unspecified Plan: Incidentally noted on CT scan. 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 (6) Ankle ulcer ICD Codes: L97.309 - Non-pressure chronic ulcer of unspecified ankle with unspecified severity Plan: Monitored by primary and wound care Plan The exam, history, and the medical decision-making described in the above note were completed with the assistance of the HOME. I reviewed and agree with the findings presented. Problem Qualifiers (1) Rhabdomyolysis: Qualified Codes: T79.6XXA - Traumatic ischemia of muscle, initial encounter Jeffy Brewer MD Mar 09, 2018 13:53
[2018-03-09] MEDS: FUROSEMIDE 40 MG TAB PO SCH (18:06)
[2018-03-09] MEDS: SODIUM CHLORIDE 0.9% FLUSH 10 ML FLUSH IV FLUSH PRN (20:59)
[2018-03-10] VITALS (10 sets, daily range): BP systolic 114–143; BP diastolic 58–77; PULSE 69–82; RESP 16–18; TEMP 97.2–97.7; O2SAT 93–97
[2018-03-10] MEDS: hydrALAZINE HCL 25 MG TAB PO SCH ×3 (01:58→19:00)
[2018-03-10] MEDS: oxyCODONE/ACETAMINOPHEN 7.5 MG/325 MG TAB PO PRN ×2 (02:01→19:28)
[2018-03-10] MEDS: CHLORHEXIDINE GLUCONATE 2 % 1 PACK (2 CLOTHS) TOP SCH (04:00)
[2018-03-10] MEDS: CHLORHEXIDINE 0.12% (ORAL KIT) 15 ML CUP MT SCH ×2 (08:00→20:00)
[2018-03-10] MEDS: INSULIN NovoLIN REGULAR SUPPLEMENTAL SCALE SQ SCH ×4 (08:00→21:00)
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
[2018-03-10] MEDS: BISACODYL 10 MG SUPP RECTAL SCH (09:00)
[2018-03-10] MEDS: ARTIFICIAL TEARS OPTH OINT 3.5 APPLIC/3.5 GM TUBO EACH EYE SCH ×2 (09:00→21:00)
[2018-03-10] MEDS: INSULIN DETEMIR 100 UNITS/ML VIAL SQ SCH ×2 (09:00→22:02)
--- NOTE | 2018-03-10 09:23 | HHI.PR ---
Subjective Remarks Patient seen and examined this morning, their vitals are stable and the patient is afebrile. Patient denies chest pain or shortness of breath. Working with OT , working on eating and feeding himself. No complaints or concerns. Objective Vital Signs Date Time Temp Pulse Resp B/P (MAP) Pulse Ox O2 Delivery O2 Flow Rate FiO2 03/10/18 04:00 97.4 77 16 131/77 (95) 96 03/10/18 04:00 Room Air 03/10/18 04:00 69 03/10/18 00:00 Room Air 03/10/18 00:00 97.4 80 18 131/67 (88) 97 03/10/18 00:00 78 03/09/18 21:00 Room Air 03/09/18 20:21 97 21 03/09/18 20:00 96.0 78 18 152/74 (100) 96 03/09/18 20:00 82 03/09/18 16:17 97.7 74 18 142/77 (98) 96 03/09/18 12:17 98.3 69 19 134/65 (88) 98 03/09/18 12:00 70 03/09/18 09:30 Room Air I/O 03/09/18 03/09/18 03/09/18 03/10/18 03/10/18 03/10/18 07:00 15:00 23:00 07:00 15:00 23:00 Intake Total 480 ml 460 ml 240 ml Output Total 1200 ml 1600 ml 1800 ml Balance -720 ml -1140 ml -1560 ml Intake Oral 480 ml 360 ml 240 ml IV Total 100 ml Output Urine Total 1200 ml 1600 ml 1800 ml # Bowel Movements 0 Result Diagram: 03/09/18 0808 03/09/18 0808 Imaging Last Impressions Catheter Placement X-Ray 03/07/18 0000 Signed Impressions: CONCLUSION: 1. Uncomplicated PermaCath placement as above. Modified Barium Swallow 03/06/18 0000 Signed Impressions: CONCLUSION: No aspiration or penetration was seen. Abdomen X-Ray 03/02/18 0000 Signed Impressions: CONCLUSION: No acute abdominal abnormality is identified. Thoracic Spine MRI 03/01/18 0000 Signed Impressions: CONCLUSION: 1. Examination within normal limits for age. No canal or foraminal stenosis. N o discrete disc protrusion. Lumbar Spine MRI 03/01/18 0000 Signed Impressions: CONCLUSION: 1. At L3-4 there is a superior endplate depression or Schmorl's node at L4 wit h disc bulge and osteophytic ridging resulting in a mild central canal and righ t lateral recess and foraminal stenosis. 2. At L4-5 there is facet arthropathy with mild lateral recess stenosis. 3. No acute fracture. Conus medullaris intact. Neck Magnetic Resonance Angiography 02/28/18 0000 Signed Impressions: CONCLUSION: 1. Smooth mild to moderate stenosis proximal left internal carotid artery. Dif ferential diagnosis includes atherosclerotic plaque formation and arthritis. __ Percent stenosis is calculated using the diameter of the stenotic region over t he diameter of the normal distal internal carotid artery __ Head Magnetic Resonance Angiography 02/28/18 0000 Signed Impressions: CONCLUSION: 1. Examination within normal limits for age. Head CT 02/28/18 0000 Signed Impressions: CONCLUSION: 1. Central and cortical atrophy with periventricular ischemic changes, negativ e for acute process. Brain MRI 02/28/18 0000 Signed Impressions: CONCLUSION: 1. Symmetric atrophy. 2. Mastoiditis. 3. No acute intracranial findings. Chest X-Ray 02/26/18 0600 Signed Impressions: CONCLUSION: No significant interval change with persistent mild patchy left lung base opaci ty. Abdomen/Pelvis CT 02/22/18 0000 Signed Impressions: CONCLUSION: 1. Small bilateral pleural effusions with dependent atelectasis and consolidat ion in both lungs. 2. Mild ileus. Liver Ultrasound 02/17/18 0000 Signed Impressions: CONCLUSION: 1. Hepatomegaly with coarsened liver echotexture. No focal liver lesion is heath ntified. 2. Mild splenomegaly. Foot MRI 02/14/18 Signed Impressions: CONCLUSION: 1. Diffuse subcutaneous edema of the foot with mild enhancement along the dors al aspect of the foot. This could represent cellulitis. No abscess is identifie d and there are no findings to indicate osteomyelitis. 2. There is some degree of osseous fusion at the tibiotalar joint and there is severe degenerative change at the subtalar joint and talonavicular joint. 3. Old healed fracture of the fifth metatarsal. Foot X-Ray 02/13/18 Signed Impressions: CONCLUSION: 1. There is a transverse fracture through the mid fifth metatarsal. Adjacent p eriosteal reaction is present suggesting that it is subacute or chronic. 2. There has been prior arthrodesis of the subtalar joint and tibiotalar joint s with osseous fusion. Hypertrophic osteophytes are present at the talonavicula r joint. Cervical Spine CT 02/12/18 Signed Impressions: CONCLUSION: Unremarkable study except for slight degenerative spondylosis. CT Angiography 02/12/18 Signed Impressions: CONCLUSION: 1. Possible nodules within the thyroid gland mainly on the right side. 2. Slight fatty liver. 3. No definite pulmonary embolus. Objective Remarks GENERAL: Well-appearing, no acute distress SKIN: Warm and dry. Chronic wounds on bilateral ankles, dressing is clean dry and intact. HEAD: Normocephalic. EYES: No scleral icterus. No injection or drainage. NECK: Supple, trachea midline. No JVD or lymphadenopathy. Right HD catheter in place. CARDIOVASCULAR: Regular rate and rhythm without murmurs, gallops, or rubs. RESPIRATORY: Breath sounds equal bilaterally. No accessory muscle use. GASTROINTESTINAL: Abdomen soft, non-tender, appears distended. : scrotal swelling noted MUSCULOSKELETAL: No cyanosis, or edema. A/P Problem List: (1) Endocarditis of mitral valve ICD Code: I05.8 - Other rheumatic mitral valve diseases Status: Acute (2) Acute encephalopathy ICD Code: G93.40 - Encephalopathy, unspecified Status: Acute (3) Major neurocognitive disorder, due to vascular disease, with behavioral disturbance, mild ICD Code: F01.51 - Vascular dementia with behavioral disturbance (4) Acute renal failure ICD Code: N17.9 - Acute kidney failure, unspecified Status: Chronic (5) Sepsis ICD Code: A41.9 - Sepsis, unspecified organism Status: Resolved Assessment and Plan In summary this is a 62-year-old male patient with a medical history of her diabetes, coronary artery disease, CVA, BPH, hypertension, colon cancer, anemia , GERD, and chronic back pain and was at her only with crutches who presented to [facility] ED after his brother had found him on the floor for greater than 18 hours. It was unclear of the mechanism of his fall. Is unclear if the patient had lost consciousness. The patient was intubated and sedated upon his initial presentation. He was diagnosed with MSSA sepsis Urinary retention Charlton Add flomax Severe sepsis. Mitral valve endocarditis MSSA bacteremia, repeat blood cultures on 03/01 have been negative to date Bilateral lower extremity cellulitis History right foot infection Infectious disease: daptomycin stop date March 08, continue Ancef. Will need full treatment for endocarditis Acute renal failure, oliguric On hemodialysis Permacath replaced by IR on March 07 Seen and evaluated by Nephro: "Discharge planning, most likely to rehab okay from renal point of view, however unless the patient can be transported to an outpatient dialysis facility in a wheelchair and be able to be transferred to a dialysis chair the outpatient dialysis facility will not be able to accommodate him. If this cannot be achieved the patient will need to go to a rehab facility which has dialysis services on hand as long as the patient remains dialysis dependent." Adjust all meds to renal function avoid nephrotoxic agents, contrast, NSAIDs No significant improvement in renal function, continues to be dialysis dependent Acute respiratory failure Weaned off vent Coronary disease Metabolic encephalopathy Acute seizure episode CT, MRI negative Neuropsych seen and evaluated the patient. Patient is improving from their standpoint. Discharge Planning DC pending clinical improvement Nephrology and ID clearance Stacy Kingston MD Mar 10, 2018 09:23
--- NOTE | 2018-03-10 09:24 | HHI.NPPN ---
Subjective History of Present Illness The patient is a 62 yo [place] male with PMHx of DM, CAD, CVA, BPH, HTN, Colon CA, Anemia, GERD, who was brought into this facility on 02/12/18 after brother found him down on the ground at his home for >18hrs. Unclear if he had lost consciousness or the mechanism of his fall as the patient is currently intubated and sedated. Has been diagnosed with MSSA sepsis, but source is not entirely clear. Has hardware in his right ankle but podiatry does not feel that this is the source. Underwent STEF this AM and cardiology is suspicious for mitral valve vegetation, however, formal report is pending. His admitting SCr was 1.32 and has deteriorated to 4.14 at time of consult. He is 10L to the positive and UOP is marginal. Nephrology has been consulted for management of acute renal failure. Appears preserved renal functions predating this admission, with baseline SCr 0.6-0.8 as per Oct 2017 admission. Interval History No family present today Pt resting, but easily arousable. Voices no complaints. Objective Data Data Vital Signs Date Time Temp Pulse Resp B/P (MAP) Pulse Ox O2 Delivery O2 Flow Rate FiO2 03/10/18 04:00 97.4 77 16 131/77 (95) 96 03/10/18 04:00 Room Air 03/10/18 04:00 69 03/10/18 00:00 Room Air 03/10/18 00:00 97.4 80 18 131/67 (88) 97 03/10/18 00:00 78 03/09/18 21:00 Room Air 03/09/18 20:21 97 21 03/09/18 20:00 96.0 78 18 152/74 (100) 96 03/09/18 20:00 82 03/09/18 16:17 97.7 74 18 142/77 (98) 96 03/09/18 12:17 98.3 69 19 134/65 (88) 98 03/09/18 12:00 70 03/09/18 09:30 Room Air -: 03/09/18 0808 03/09/18 0808 Imaging Last Impressions Catheter Placement X-Ray 03/07/18 0000 Signed Impressions: CONCLUSION: 1. Uncomplicated PermaCath placement as above. Modified Barium Swallow 03/06/18 0000 Signed Impressions: CONCLUSION: No aspiration or penetration was seen. Abdomen X-Ray 03/02/18 0000 Signed Impressions: CONCLUSION: No acute abdominal abnormality is identified. Thoracic Spine MRI 03/01/18 0000 Signed Impressions: CONCLUSION: 1. Examination within normal limits for age. No canal or foraminal stenosis. N o discrete disc protrusion. Lumbar Spine MRI 03/01/18 0000 Signed Impressions: CONCLUSION: 1. At L3-4 there is a superior endplate depression or Schmorl's node at L4 wit h disc bulge and osteophytic ridging resulting in a mild central canal and righ t lateral recess and foraminal stenosis. 2. At L4-5 there is facet arthropathy with mild lateral recess stenosis. 3. No acute fracture. Conus medullaris intact. Neck Magnetic Resonance Angiography 02/28/18 0000 Signed Impressions: CONCLUSION: 1. Smooth mild to moderate stenosis proximal left internal carotid artery. Dif ferential diagnosis includes atherosclerotic plaque formation and arthritis. __ Percent stenosis is calculated using the diameter of the stenotic region over t he diameter of the normal distal internal carotid artery __ Head Magnetic Resonance Angiography 02/28/18 0000 Signed Impressions: CONCLUSION: 1. Examination within normal limits for age. Head CT 02/28/18 0000 Signed Impressions: CONCLUSION: 1. Central and cortical atrophy with periventricular ischemic changes, negativ e for acute process. Brain MRI 02/28/18 0000 Signed Impressions: CONCLUSION: 1. Symmetric atrophy. 2. Mastoiditis. 3. No acute intracranial findings. Chest X-Ray 02/26/18 0600 Signed Impressions: CONCLUSION: No significant interval change with persistent mild patchy left lung base opaci ty. Abdomen/Pelvis CT 02/22/18 Signed Impressions: CONCLUSION: 1. Small bilateral pleural effusions with dependent atelectasis and consolidat ion in both lungs. 2. Mild ileus. Liver Ultrasound 02/17/18 Signed Impressions: CONCLUSION: 1. Hepatomegaly with coarsened liver echotexture. No focal liver lesion is heath ntified. 2. Mild splenomegaly. Foot MRI 02/14/18 Signed Impressions: CONCLUSION: 1. Diffuse subcutaneous edema of the foot with mild enhancement along the dors al aspect of the foot. This could represent cellulitis. No abscess is identifie d and there are no findings to indicate osteomyelitis. 2. There is some degree of osseous fusion at the tibiotalar joint and there is severe degenerative change at the subtalar joint and talonavicular joint. 3. Old healed fracture of the fifth metatarsal. Foot X-Ray 02/13/18 Signed Impressions: CONCLUSION: 1. There is a transverse fracture through the mid fifth metatarsal. Adjacent p eriosteal reaction is present suggesting that it is subacute or chronic. 2. There has been prior arthrodesis of the subtalar joint and tibiotalar joint s with osseous fusion. Hypertrophic osteophytes are present at the talonavicula r joint. Cervical Spine CT 02/12/18 Signed Impressions: CONCLUSION: Unremarkable study except for slight degenerative spondylosis. CT Angiography 02/12/18 Signed Impressions: CONCLUSION: 1. Possible nodules within the thyroid gland mainly on the right side. 2. Slight fatty liver. 3. No definite pulmonary embolus. Tubes & Lines: Perma-Cath, Charlton Medication Review Current Medications Medications (Trade) Dose Ordered Sig/Ada Route Start Time Stop Time Status Last Admin (NS Flush) 2 ml UNSCH PRN IV FLUSH 02/12/18 21:45 03/09/18 20:59 ([facility] Nursing Information) 1 [id number] XX 02/13/18 00:00 (Chlorhexidine 2% Cloth) Taper DAILY@04 TOP 02/13/18 04:00 02/09/19 03:59 02/27/18 03:16 (Chlorhexidine 2% Cloth) 3 pack UNSCH PRN TOP 02/13/18 00:00 (Dilaudid Pf Inj) 0.2 mg Q4H PRN IV PUSH 02/13/18 09:00 03/01/18 15:44 (Tylenol) 650 mg Q4H PRN PO 02/13/18 10:45 02/27/18 12:45 (Trandate Inj) 20 mg Q2H PRN IV PUSH 02/13/18 11:00 02/27/18 05:13 (Cepacol Extra Sia (Sugar Free)) 1 lozenge Q1H PRN BUCCAL 02/13/18 11:00 02/13/18 11:03 Propofol 100 ml @ 3.66 mls/hr TITRATE PRN IV 02/13/18 19:45 02/19/18 13:45 (Peridex 0.12% Liq) 15 ml BID@08,20 MT 02/14/18 08:00 03/05/18 08:00 Fentanyl Citrate 250 ml @ 5 mls/hr TITRATE PRN IV 02/13/18 21:15 02/19/18 09:08 (Zofran Odt) 4 mg UNSCH PRN PO 02/17/18 12:00 (NS Flush) UNSCH PRN IV FLUSH 02/17/18 13:30 (Heparin Inj) UNSCH PRN IV FLUSH 02/17/18 13:30 (Lopressor) 25 mg Q12HR PO 02/19/18 09:00 03/09/18 20:59 Dexmedetomidine HCl 1000 mcg/ Sodium Chloride 250 ml @ 6.6 mls/hr TITRATE PRN IV 02/19/18 23:30 02/26/18 09:43 (Albuterol Neb) 2.5 mg Q2HR NEB PRN NEB 02/20/18 22:00 (D50w (Vial) Inj) 50 ml UNSCH PRN IV PUSH 02/21/18 10:00 (Glucagon Inj) 1 mg UNSCH PRN OTHER 02/21/18 10:00 (Lacrilube Opht Oint) 1 applic Q12HR EACH EYE 02/22/18 21:00 03/06/18 20:55 (Apresoline) 75 mg Q8H PO 02/22/18 18:00 03/10/18 01:58 (Levemir Inj) 20 units Q12HR SQ 02/24/18 09:00 03/09/18 21:01 (Heparin Inj) 5,000 units Q12HR SQ 02/24/18 09:00 03/09/18 21:01 (Percocet 7.5-325 Mg) 1 tab Q4H PRN PO 03/01/18 13:30 03/10/18 02:01 Cefazolin Sodium 1000 mg/Sodium Chloride 100 ml @ 200 mls/hr Q24H IV 03/03/18 14:00 03/09/18 13:17 (Zofran Odt) 4 mg Q6H PRN PO 03/01/18 18:15 03/08/18 19:31 (Protonix) 40 mg DAILY PO 03/04/18 09:00 03/09/18 09:49 (NS Flush) UNSCH PRN IV FLUSH 03/03/18 15:00 (Heparin Inj) UNSCH PRN IV FLUSH 03/03/18 15:00 (Crissy-Colace) 2 tab BID PO 03/04/18 13:45 03/09/18 21:00 (Miralax) 17 gm DAILY PO 03/04/18 13:45 03/09/18 09:50 (Dulcolax Supp) 10 mg DAILY RECTAL 03/04/18 13:45 03/06/18 11:09 (Milk Of Magnesia Liq) 30 ml Q6H PRN PO 03/04/18 13:45 03/09/18 21:01 (D50w (Vial) Inj) 50 ml UNSCH PRN IV PUSH 03/04/18 14:30 (Glucagon Inj) 1 mg UNSCH PRN OTHER 03/04/18 14:30 (NovoLIN R SUPPLEMENTAL SCALE) 1 ACHS SQ 03/04/18 17:00 03/09/18 21:01 (Keppra) 500 mg Q12H PO 03/05/18 10:00 03/09/18 20:59 Vancomycin HCl 1000 mg/Sodium Chloride 250 ml @ 250 mls/hr [employer] IV 03/07/18 12:15 03/11/18 12:14 Cefazolin Sodium/ Dextrose 50 ml @ 100 mls/hr [employer] IV 03/07/18 12:15 03/11/18 12:14 (NS Flush) UNSCH PRN IV FLUSH 03/07/18 15:45 (Heparin Inj) UNSCH PRN IV FLUSH 03/07/18 15:45 (Flomax) 0.4 mg DAILY PO 03/09/18 10:45 03/09/18 12:14 (Lasix) 40 mg BID@,18 PO 03/09/18 18:00 03/09/18 18:06 Physical Exam General Appearance: Comfortable, Obese Eyes Eye Exam: Sclera White Neck Neck Exam: Trachea Midline Pulmonary Resp Exam: Clear Bilaterally, Breath Sounds Equal, Decreased Bases Cardiology CV Exam: Regular, Normal Sinus Rhythm Gastrointestinal/Abdomen GI Exam: Soft, Non-Tender Integumentary Skin Exam: Clear, Warm Extremeties Extremities Exam: No Edema Neurologic Neuro Exam: Alert, Awake Assessment/Plan Discussed Condition With: Sibling Problem List: (1) Acute renal failure ICD Codes: N17.9 - Acute kidney failure, unspecified Status: Chronic Plan: UOP good. Awaiting labs this AM to determine if HD needed today or not. motel operator notified. Some degree of renal recovery does appear to be occurring. Discharge planning, most likely to rehab okay from renal point of view, however unless dialysis can be discontinued prior to discharge the patient will need be transported to an outpatient dialysis facility in a wheelchair at minimum and be able to be transferred to a dialysis chair or the outpatient dialysis facility will not be able to accommodate him. If this cannot be achieved the patient will need to go to a rehab facility which has dialysis services on hand as long as the patient remains dialysis dependent. Medications should be adjusted for the patient's renal decline. Avoid nephrotoxic medications such as iodinated contrast dyes and NSAIDs. Avoid gadolinium. (2) Sepsis ICD Codes: A41.9 - Sepsis, unspecified organism Status: Resolved Plan: Resolved (3) Rhabdomyolysis ICD Codes: M62.82 - Rhabdomyolysis Status: Resolved Plan: Resolved (4) Adrenal nodule ICD Codes: E27.9 - Disorder of adrenal gland, unspecified Plan: Incidentally noted on CT scan. 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 (6) Ankle ulcer ICD Codes: L97.309 - Non-pressure chronic ulcer of unspecified ankle with unspecified severity Plan: Monitored by primary and wound care Problem Qualifiers (1) Rhabdomyolysis: Qualified Codes: T79.6XXA - Traumatic ischemia of muscle, initial encounter Katherine Penaloza Mar 10, 2018 09:24
[2018-03-10] MEDS: levETIRAcetam 500 MG TAB PO SCH ×2 (10:11→22:01)
[2018-03-10] MEDS: METOPROLOL TARTRATE 25 MG TAB PO SCH ×2 (10:11→22:00)
[2018-03-10] MEDS: DOCUSATE SODIUM 50 MG/SENNA 8.6 MG TAB PO SCH ×2 (10:12→22:00)
[2018-03-10] MEDS: TAMSULOSIN HCL 0.4 MG CAP PO SCH (10:12)
[2018-03-10] MEDS: HEPARIN SODIUM - SQ 10,000 UNITS/ML VIAL SQ SCH ×2 (10:13→22:01)
[2018-03-10] MEDS: PANTOPRAZOLE SOD 40 MG DELAYED RELEASE TAB PO SCH (10:14)
[2018-03-10] MEDS: FUROSEMIDE 40 MG TAB PO SCH ×2 (10:14→19:00)
[2018-03-10] MEDS: POLYETHYLENE GLYCOL 17 GM PKG PO SCH (10:16)
[2018-03-10 11:51] LABS: AUTOMATED NEUTROPHIL # 5.3 TH/MM3 (1.8-7.7); BASOPHIL # 0.1 TH/MM3 (0-0.2); BASOPHIL % 1.2 % (0.0-2.0); EOSINOPHIL # 0.5 TH/MM3 (0-0.4); EOSINOPHIL % 6.7 % (0.0-4.0); HEMATOCRIT 29.1 % (39.0-51.0); HEMOGLOBIN 9.8 GM/DL (13.0-17.0); LYMPH % 18.4 % (9.0-44.0); LYMPHOCYTE # 1.5 TH/MM3 (1.0-4.8); MEAN CELL VOLUME 82.9 FL (80.0-100.0); MEAN CORPUSCULAR HGB CONC 33.7 % (32.0-36.0); MEAN PLATELET VOLUME 8.7 FL (7.0-11.0); MONO % 7.3 % (0.0-8.0); MONOCYTE # 0.6 TH/MM3 (0-0.9); NEUT % 66.4 % (16.0-70.0); PLATELET COUNT 215 TH/MM3 (150-450); RED BLOOD COUNT 3.51 MIL/MM3 (4.50-5.90); RED CELL DISTRIBUTION WIDTH 15.6 % (11.6-17.2); WHITE BLOOD COUNT 7.9 TH/MM3 (4.0-11.0)
[2018-03-10 12:26] LABS: BICARBONATE 24.9 MEQ/L (21.0-32.0); CREATININE 4.21 MG/DL (0.60-1.30)
[2018-03-10 12:58] LABS: ALBUMIN 2.8 GM/DL (3.4-5.0); PHOSPHORUS 6.8 MG/DL (2.5-4.9)
[2018-03-11] VITALS: PULSE 75
[2018-03-11] MEDS: hydrALAZINE HCL 25 MG TAB PO SCH ×3 (02:56→18:02)
[2018-03-11] MEDS: oxyCODONE/ACETAMINOPHEN 7.5 MG/325 MG TAB PO PRN ×2 (02:57→18:04)
[2018-03-11] MEDS: CHLORHEXIDINE GLUCONATE 2 % 1 PACK (2 CLOTHS) TOP SCH (02:57)
[2018-03-11 04:00] VITALS: PULSE 69
[2018-03-11 04:30] VITALS: BP 128/62; PULSE 68; RESP 18; TEMP 95.8; O2SAT 94
[2018-03-11 08:00] VITALS: BP 117/65; PULSE 73; RESP 17; TEMP 97.3; O2SAT 97
[2018-03-11] MEDS: INSULIN NovoLIN REGULAR SUPPLEMENTAL SCALE SQ SCH ×2 (08:00→12:00)
[2018-03-11] MEDS: CHLORHEXIDINE 0.12% (ORAL KIT) 15 ML CUP MT SCH (08:00)
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
[2018-03-11 08:47] LABS: HEMATOCRIT 28.6 % (39.0-51.0); HEMOGLOBIN 9.7 GM/DL (13.0-17.0); MEAN CELL VOLUME 83.6 FL (80.0-100.0); MEAN CORPUSCULAR HEMOGLOBIN 28.3 PG (27.0-34.0); MEAN CORPUSCULAR HGB CONC 33.9 % (32.0-36.0); MEAN PLATELET VOLUME 9.2 FL (7.0-11.0); PLATELET COUNT 203 TH/MM3 (150-450); RED BLOOD COUNT 3.43 MIL/MM3 (4.50-5.90); RED CELL DISTRIBUTION WIDTH 15.2 % (11.6-17.2); WHITE BLOOD COUNT 7.7 TH/MM3 (4.0-11.0)
[2018-03-11] MEDS: INSULIN DETEMIR 100 UNITS/ML VIAL SQ SCH (09:00)
[2018-03-11] MEDS: BISACODYL 10 MG SUPP RECTAL SCH (09:00)
[2018-03-11] MEDS: ARTIFICIAL TEARS OPTH OINT 3.5 APPLIC/3.5 GM TUBO EACH EYE SCH (09:00)
[2018-03-11] MEDS: ONDANSETRON ODT 4 MG TAB PO PRN (09:01)
[2018-03-11 09:15] LABS: ALBUMIN 2.9 GM/DL (3.4-5.0); CREATININE 3.84 MG/DL (0.60-1.30); PHOSPHORUS 6.7 MG/DL (2.5-4.9)
[2018-03-11] MEDS: TAMSULOSIN HCL 0.4 MG CAP PO SCH (09:48)
[2018-03-11] MEDS: POLYETHYLENE GLYCOL 17 GM PKG PO SCH (09:48)
[2018-03-11] MEDS: FUROSEMIDE 40 MG TAB PO SCH (09:49)
[2018-03-11] MEDS: METOPROLOL TARTRATE 25 MG TAB PO SCH (09:49)
[2018-03-11] MEDS: PANTOPRAZOLE SOD 40 MG DELAYED RELEASE TAB PO SCH (09:49)
[2018-03-11] MEDS: DOCUSATE SODIUM 50 MG/SENNA 8.6 MG TAB PO SCH (09:50)
[2018-03-11] MEDS: levETIRAcetam 500 MG TAB PO SCH (09:51)
[2018-03-11] MEDS: HEPARIN SODIUM - SQ 10,000 UNITS/ML VIAL SQ SCH (09:51)
--- NOTE | 2018-03-11 11:58 | HHI.NPPN ---
Subjective History of Present Illness The patient is a 62 yo [place] male with PMHx of DM, CAD, CVA, BPH, HTN, Colon CA, Anemia, GERD, who was brought into this facility on 02/12/18 after brother found him down on the ground at his home for >18hrs. Unclear if he had lost consciousness or the mechanism of his fall as the patient is currently intubated and sedated. Has been diagnosed with MSSA sepsis, but source is not entirely clear. Has hardware in his right ankle but podiatry does not feel that this is the source. Underwent STEF this AM and cardiology is suspicious for mitral valve vegetation, however, formal report is pending. His admitting SCr was 1.32 and has deteriorated to 4.14 at time of consult. He is 10L to the positive and UOP is marginal. Nephrology has been consulted for management of acute renal failure. Appears preserved renal functions predating this admission, with baseline SCr 0.6-0.8 as per Oct 2017 admission. Interval History Patient appears to be more alert. No verbal complaints. Sister by bedside. Objective Data Data Vital Signs Date Time Temp Pulse Resp B/P (MAP) Pulse Ox O2 Delivery O2 Flow Rate FiO2 03/11/18 08:00 97.3 73 17 117/65 (82) 97 03/11/18 04:30 95.8 68 18 128/62 (84) 94 03/11/18 04:00 69 03/11/18 00:00 75 03/10/18 23:42 97.2 77 18 129/60 (83) 96 03/10/18 20:09 97.3 80 18 114/58 (76) 97 03/10/18 20:00 81 03/10/18 20:00 Room Air 03/10/18 17:00 78 03/10/18 16:00 97.3 82 18 143/68 (93) 96 03/10/18 12:00 97.7 76 18 138/66 (90) 97 03/10/18 12:00 75 -: 03/11/18 0648 03/11/18 0648 Tubes & Lines: Perma-Cath, Charlton Physical Exam General Appearance: Comfortable, Obese Eyes Eye Exam: Sclera White Neck Neck Exam: Trachea Midline Pulmonary Resp Exam: Clear Bilaterally, Breath Sounds Equal, Decreased Bases Cardiology CV Exam: Regular, Normal Sinus Rhythm Gastrointestinal/Abdomen GI Exam: Soft, Non-Tender Integumentary Skin Exam: Clear, Warm Extremeties Extremities Exam: No Edema Neurologic Neuro Exam: Alert, Awake Assessment/Plan Discussed Condition With: Sibling Problem List: (1) Acute renal failure ICD Codes: N17.9 - Acute kidney failure, unspecified Status: Chronic Plan: Brisk urine output indicating a polyuric phase of ATN recovery. Renal indices continue to improve. Do not anticipate resumption of dialysis at this time but will recheck BMP in a.m. and if continuing to improve we will consult radiology to remove the hemodialysis PermCath as discussed with the patient and his sister today. Medications should be adjusted for the patient's renal decline. Avoid nephrotoxic medications such as iodinated contrast dyes and NSAIDs. Avoid gadolinium. (2) Sepsis ICD Codes: A41.9 - Sepsis, unspecified organism Status: Resolved Plan: Resolved (3) Rhabdomyolysis ICD Codes: M62.82 - Rhabdomyolysis Status: Resolved Plan: Resolved (4) Adrenal nodule ICD Codes: E27.9 - Disorder of adrenal gland, unspecified Plan: Incidentally noted on CT scan. 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 Problem Qualifiers (1) Rhabdomyolysis: Qualified Codes: T79.6XXA - Traumatic ischemia of muscle, initial encounter Jeffy Brewer MD Mar 11, 2018 11:58
[2018-03-11 12:00] VITALS: BP 132/75; PULSE 77; PULSE 79; RESP 17; TEMP 97.6; O2SAT 97
[2018-03-11] MEDS ORDERED: LEVEMIR SQ (15:56)
[2018-03-11] MEDS ORDERED: OXYC1TAB35 PO (15:56)
[2018-03-11] MEDS ORDERED: HYDR-3799 PO (15:56)
[2018-03-11] MEDS ORDERED: LEVE500 PO (15:56)
[2018-03-11] MEDS ORDERED: FURO20TA PO (15:56)
[2018-03-11] MEDS ORDERED: METO25TA3 PO (15:56)
[2018-03-11 16:00] VITALS: BP 129/63; PULSE 78; RESP 17; TEMP 97.5; O2SAT 95
--- NOTE | 2018-03-11 16:06 | HHI.DS ---
Discharge Summary Admission Date February 12, 2018 at 23:56 Discharge Date: Mar 11, 2018 Admitting Diagnosis nstemi;sepsis;rhabdomyolysis (1) NSTEMI (non-ST elevated myocardial infarction) ICD Code: I21.4 - Non-ST elevation (NSTEMI) myocardial infarction Status: Acute (2) Acute renal failure ICD Code: N17.9 - Acute kidney failure, unspecified Status: Chronic (3) Rhabdomyolysis ICD Code: M62.82 - Rhabdomyolysis Status: Resolved (4) Sepsis ICD Code: A41.9 - Sepsis, unspecified organism Status: Resolved (5) Endocarditis of mitral valve ICD Code: I05.8 - Other rheumatic mitral valve diseases Status: Acute Procedures Right Ij vascath placed without difficulty. s/p intubation/extubation Brief History - From Admission This is a 62yM with history of prior stroke, DM, CAD who presents after his brother found him after he fell. He states he was on the floor for > 18 hours. He endorses a week of fatigue, fever, chills. denies any other symptoms. denies chest pain, shortness of breath, nausea, vomiting, constipation, diarrhea. does endorse generalized abdominal pain which is mild. in the ER he was tachycardic and very diaphoretic. he has laboratory evidence of CK 7000, wbc 17k, Cr 1.3, trop 0.8. CT chest/abd/pelvis unremarkable. CT head and c-spine negative for trauma. febrile to 103 in the ER. given 2L NS ivf with improvement in his HR. remainder of ROS negative. CBC/BMP: 03/11/18 0648 03/11/18 0648 Significant Findings Laboratory Tests Test 03/09/18 08:08 03/10/18 11:34 03/11/18 06:48 Red Blood Count 3.35 MIL/MM3 (4.50-5.90) 3.51 MIL/MM3 (4.50-5.90) 3.43 MIL/MM3 (4.50-5.90) Hemoglobin 9.7 GM/DL (13.0-17.0) 9.8 GM/DL (13.0-17.0) 9.7 GM/DL (13.0-17.0) Hematocrit 28.0 % (39.0-51.0) 29.1 % (39.0-51.0) 28.6 % (39.0-51.0) Monocytes (%) (Auto) 9.3 % (0.0-8.0) Eosinophils (%) (Auto) 6.8 % (0.0-4.0) 6.7 % (0.0-4.0) Eosinophils # (Auto) 0.6 TH/MM3 (0-0.4) 0.5 TH/MM3 (0-0.4) Blood Urea Nitrogen 79 MG/DL (7-18) 88 MG/DL (7-18) 86 MG/DL (7-18) Creatinine 4.69 MG/DL (0.60-1.30) 4.21 MG/DL (0.60-1.30) 3.84 MG/DL (0.60-1.30) Random Glucose 110 MG/DL (74-106) 214 MG/DL (74-106) Sodium Level 127 MEQ/L (136-145) 124 MEQ/L (136-145) 127 MEQ/L (136-145) Chloride Level 88 MEQ/L (98-107) 85 MEQ/L (98-107) 89 MEQ/L (98-107) Estimat Glomerular Filtration Rate 13 ML/MIN (>89) 14 ML/MIN (>89) 16 ML/MIN (>89) Albumin 2.8 GM/DL (3.4-5.0) 2.9 GM/DL (3.4-5.0) Phosphorus Level 6.8 MG/DL (2.5-4.9) 6.7 MG/DL (2.5-4.9) Imaging Last Impressions Catheter Placement X-Ray 03/07/18 0000 Signed Impressions: CONCLUSION: 1. Uncomplicated PermaCath placement as above. Modified Barium Swallow 03/06/18 0000 Signed Impressions: CONCLUSION: No aspiration or penetration was seen. Abdomen X-Ray 03/02/18 0000 Signed Impressions: CONCLUSION: No acute abdominal abnormality is identified. Thoracic Spine MRI 03/01/18 0000 Signed Impressions: CONCLUSION: 1. Examination within normal limits for age. No canal or foraminal stenosis. N o discrete disc protrusion. Lumbar Spine MRI 03/01/18 0000 Signed Impressions: CONCLUSION: 1. At L3-4 there is a superior endplate depression or Schmorl's node at L4 wit h disc bulge and osteophytic ridging resulting in a mild central canal and righ t lateral recess and foraminal stenosis. 2. At L4-5 there is facet arthropathy with mild lateral recess stenosis. 3. No acute fracture. Conus medullaris intact. Neck Magnetic Resonance Angiography 02/28/18 0000 Signed Impressions: CONCLUSION: 1. Smooth mild to moderate stenosis proximal left internal carotid artery. Dif ferential diagnosis includes atherosclerotic plaque formation and arthritis. __ Percent stenosis is calculated using the diameter of the stenotic region over t he diameter of the normal distal internal carotid artery __ Head Magnetic Resonance Angiography 02/28/18 0000 Signed Impressions: CONCLUSION: 1. Examination within normal limits for age. Head CT 02/28/18 0000 Signed Impressions: CONCLUSION: 1. Central and cortical atrophy with periventricular ischemic changes, negativ e for acute process. Brain MRI 02/28/18 0000 Signed Impressions: CONCLUSION: 1. Symmetric atrophy. 2. Mastoiditis. 3. No acute intracranial findings. Chest X-Ray 02/26/18 0600 Signed Impressions: CONCLUSION: No significant interval change with persistent mild patchy left lung base opaci ty. Abdomen/Pelvis CT 02/22/18 0000 Signed Impressions: CONCLUSION: 1. Small bilateral pleural effusions with dependent atelectasis and consolidat ion in both lungs. 2. Mild ileus. Liver Ultrasound 6/4/18 0000 Signed Impressions: CONCLUSION: 1. Hepatomegaly with coarsened liver echotexture. No focal liver lesion is heath ntified. 2. Mild splenomegaly. Foot MRI 02/14/18 Signed Impressions: CONCLUSION: 1. Diffuse subcutaneous edema of the foot with mild enhancement along the dors al aspect of the foot. This could represent cellulitis. No abscess is identifie d and there are no findings to indicate osteomyelitis. 2. There is some degree of osseous fusion at the tibiotalar joint and there is severe degenerative change at the subtalar joint and talonavicular joint. 3. Old healed fracture of the fifth metatarsal. Foot X-Ray 02/13/18 Signed Impressions: CONCLUSION: 1. There is a transverse fracture through the mid fifth metatarsal. Adjacent p eriosteal reaction is present suggesting that it is subacute or chronic. 2. There has been prior arthrodesis of the subtalar joint and tibiotalar joint s with osseous fusion. Hypertrophic osteophytes are present at the talonavicula r joint. Cervical Spine CT 02/12/18 Signed Impressions: CONCLUSION: Unremarkable study except for slight degenerative spondylosis. CT Angiography 02/12/18 Signed Impressions: CONCLUSION: 1. Possible nodules within the thyroid gland mainly on the right side. 2. Slight fatty liver. 3. No definite pulmonary embolus. PE at Discharge GENERAL: alert and awake CARDIOVASCULAR: Regular rate and rhythm. RESPIRATORY: No accessory muscle use. Clear to auscultation. Breath sounds equal bilaterally. GASTROINTESTINAL: Abdomen soft, non-tender, nondistended. PSYCHIATRIC: Appropriate mood and affect Pt update on day of discharge Pt seen around noon today complains of chronic back pain. eager to go to [facility]. denies any CP/SOB/N /V sister at bedside tells me that nephrology notified them that he didn't need HD anymore Hospital Course In summary this is a 62-year-old male patient with a medical history of her diabetes, coronary artery disease, CVA, BPH, hypertension, colon cancer, anemia , GERD, and chronic back pain and was at her only with crutches who presented to [place] ED after his brother had found him on the floor for greater than 18 hours. It was unclear of the mechanism of his fall. Is unclear if the patient had lost consciousness. The patient was intubated and sedated upon his initial presentation. He was diagnosed with MSSA sepsis and Mitral valve endocarditis Infectious disease evaluated the patient and was started on daptomycin which was stopped on March 08, currently still on Ancef. He will need full treatment for endocarditis. Stop date per ID on EMR Also presented w Acute renal failure, oliguric. Received HD.Permacath replaced by IR on March 07. Spoke w nephrology and pt can be discharged to [facility] and he would like to f/u pt there. Repeat BMP tomorrow morning. if continuing to improve we will consult radiology to remove the hemodialysis PermCath sz episode while in the hospital. CT, MRI negative. Neuropsych seen and evaluated the patient. Patient is improving from their standpoint. on keppra Pt Condition on Discharge: Stable Discharge Disposition: Rehab Inpatient Discharge Time: > 30 minutes Discharge Instructions DIET: Follow Instructions for: Renal Failure Diet Activities you can perform: Regular-No Restrictions Follow up Referrals: Nephrology - 1 Month PCP Follow-up - 1 Week New Medications: Furosemide (Furosemide) 20 Mg Tab 20 MG PO DAILY, #30 TAB Hydralazine HCl (Hydralazine HCl) 25 Mg Tablet 75 MG PO Q8H, #270 Insulin Detemir Inj (Levemir Inj) 1,000 unit/ 10 ML Vial 20 UNITS SQ Q12HR, #10 ML Do not mix with any other Insulin. Levetiracetam (Keppra) 500 Mg Tab 500 MG PO Q12H, #60 TAB Metoprolol Tartrate (Metoprolol Tartrate) 25 Mg Tab 25 MG PO Q12HR, #60 TAB Oxycodone HCl/Acetaminophen (Oxycodon-Acetaminophen 7.5-325) 7.5 Mg-325 Mg Tablet 1 TAB PO Q4H PRN for PAIN SCALE 5 TO 10, #10 Continued Medications: Ferrous Sulfate (Ferosul) 325 Mg (65 Mg Iron) Tablet 325 MG PO DAILY for anemia for 30 Days, TAB 0 Refills Multiple Vitamins W/ Minerals (Centrum) 1 Chew 1 TAB CHEW DAILY for Nutritional Supplement, TAB 0 Refills Pantoprazole (Pantoprazole) 40 Mg Tab 40 MG PO Q12HR for pud for 30 Days, TAB 0 Refills Simvastatin (Simvastatin) 20 Mg Tab 20 MG PO DAILY for Cholesterol Management, #30 TAB 0 Refills Sucralfate (Carafate) 1 Gram Tab 1 GM PO BIDAC for pud for 30 Days, TAB 0 Refills Tamsulosin (Tamsulosin) 0.4 Mg Cap 0.4 MG HS for Manage Prostate Problems, #30 CAP 0 Refills Discontinued Medications: Diphenhydramine (Diphenhydramine) 25 Mg Cap 50 MG PO Q12H PRN for ALLERGIES, CAP 0 Refills Glipizide (Glipizide) 5 Mg Tab 5 MG PO BID for Blood Sugar Management, #30 TAB 0 Refills Take 30 minutes before a meal Metformin (Metformin) 500 Mg Tab 500 MG PO BID for Blood Sugar Management, #60 TAB 0 Refills Sitagliptin (Januvia) 50 Mg Tab 50 MG PO DAILY for Blood Sugar Management, #30 TAB 0 Refills Leanne Watts MD Mar 11, 2018 16:06
--- NOTE | 2018-03-11 16:27 | HHI.IDPN ---
Subjective Subjective Remarks Interim progress noted Off HD now Antibiotics cefazolin Lines PIVs look ok Past Medical History Past Medical History Diabetes Hyperlipidemia Chronic pain syndrome bilateral lower extremity ulcers BPH Hypertension Colon cancer s/p partial colectomy prior NSTEMI severe 2-vessel CAD managed medically old RBBB prior GI bleed anemia secondary to GI bleeding Arthritis CHF, unknown type GERD Past Surgical History partial colectomy skin grafts to right ankle left ankle surgery CABG Allergies: Coded Allergies: No Known Allergies (Unverified , 10/21/17) Objective . Vital Signs Date Time Temp Pulse Resp B/P (MAP) Pulse Ox O2 Delivery O2 Flow Rate FiO2 03/11/18 16:00 97.5 78 17 129/63 (85) 95 03/11/18 12:00 97.6 77 17 132/75 (94) 97 03/11/18 08:00 73 03/11/18 08:00 97.3 73 17 117/65 (82) 97 03/11/18 07:00 Room Air 03/11/18 04:30 95.8 68 18 128/62 (84) 94 03/11/18 04:00 69 03/11/18 00:00 75 03/10/18 23:42 97.2 77 18 129/60 (83) 96 03/10/18 20:09 97.3 80 18 114/58 (76) 97 03/10/18 20:00 81 03/10/18 20:00 Room Air 03/10/18 17:00 78 03/11/18 03/11/18 03/12/18 15:00 23:00 07:00 Bladder Scan Volume Amount 999 ml . Laboratory Tests Test 03/10/18 11:34 03/11/18 06:48 White Blood Count 7.9 TH/MM3 7.7 TH/MM3 Red Blood Count 3.51 MIL/MM3 3.43 MIL/MM3 Hemoglobin 9.8 GM/DL 9.7 GM/DL Hematocrit 29.1 % 28.6 % Mean Corpuscular Volume 82.9 FL 83.6 FL Mean Corpuscular Hemoglobin 28.0 PG 28.3 PG Mean Corpuscular Hemoglobin Concent 33.7 % 33.9 % Red Cell Distribution Width 15.6 % 15.2 % Platelet Count 215 TH/MM3 203 TH/MM3 Mean Platelet Volume 8.7 FL 9.2 FL Neutrophils (%) (Auto) 66.4 % Lymphocytes (%) (Auto) 18.4 % Monocytes (%) (Auto) 7.3 % Eosinophils (%) (Auto) 6.7 % Basophils (%) (Auto) 1.2 % Neutrophils # (Auto) 5.3 TH/MM3 Lymphocytes # (Auto) 1.5 TH/MM3 Monocytes # (Auto) 0.6 TH/MM3 Eosinophils # (Auto) 0.5 TH/MM3 Basophils # (Auto) 0.1 TH/MM3 CBC Comment DIFF FINAL Differential Comment Laboratory Tests Test 03/10/18 11:34 03/11/18 06:48 Blood Urea Nitrogen 88 MG/DL 86 MG/DL Creatinine 4.21 MG/DL 3.84 MG/DL Random Glucose 214 MG/DL 89 MG/DL Albumin 2.8 GM/DL 2.9 GM/DL Calcium Level 9.0 MG/DL 9.0 MG/DL Phosphorus Level 6.8 MG/DL 6.7 MG/DL Sodium Level 124 MEQ/L 127 MEQ/L Potassium Level 4.5 MEQ/L 4.5 MEQ/L Chloride Level 85 MEQ/L 89 MEQ/L Carbon Dioxide Level 24.9 MEQ/L 26.0 MEQ/L Anion Gap 14 MEQ/L 12 MEQ/L Estimat Glomerular Filtration Rate 14 ML/MIN 16 ML/MIN Imaging Last Impressions Catheter Placement X-Ray 03/07/18 0000 Signed Impressions: CONCLUSION: 1. Uncomplicated PermaCath placement as above. Modified Barium Swallow 03/06/18 0000 Signed Impressions: CONCLUSION: No aspiration or penetration was seen. Abdomen X-Ray 03/02/18 0000 Signed Impressions: CONCLUSION: No acute abdominal abnormality is identified. Thoracic Spine MRI 03/01/18 0000 Signed Impressions: CONCLUSION: 1. Examination within normal limits for age. No canal or foraminal stenosis. N o discrete disc protrusion. Lumbar Spine MRI 03/01/18 0000 Signed Impressions: CONCLUSION: 1. At L3-4 there is a superior endplate depression or Schmorl's node at L4 wit h disc bulge and osteophytic ridging resulting in a mild central canal and righ t lateral recess and foraminal stenosis. 2. At L4-5 there is facet arthropathy with mild lateral recess stenosis. 3. No acute fracture. Conus medullaris intact. Neck Magnetic Resonance Angiography 02/28/18 0000 Signed Impressions: CONCLUSION: 1. Smooth mild to moderate stenosis proximal left internal carotid artery. Dif ferential diagnosis includes atherosclerotic plaque formation and arthritis. __ Percent stenosis is calculated using the diameter of the stenotic region over t he diameter of the normal distal internal carotid artery __ Head Magnetic Resonance Angiography 02/28/18 0000 Signed Impressions: CONCLUSION: 1. Examination within normal limits for age. Head CT 02/28/18 0000 Signed Impressions: CONCLUSION: 1. Central and cortical atrophy with periventricular ischemic changes, negativ e for acute process. Brain MRI 02/28/18 0000 Signed Impressions: CONCLUSION: 1. Symmetric atrophy. 2. Mastoiditis. 3. No acute intracranial findings. Chest X-Ray 02/26/18 0600 Signed Impressions: CONCLUSION: No significant interval change with persistent mild patchy left lung base opaci ty. Abdomen/Pelvis CT 02/22/18 0000 Signed Impressions: CONCLUSION: 1. Small bilateral pleural effusions with dependent atelectasis and consolidat ion in both lungs. 2. Mild ileus. Liver Ultrasound 02/17/18 0000 Signed Impressions: CONCLUSION: 1. Hepatomegaly with coarsened liver echotexture. No focal liver lesion is heath ntified. 2. Mild splenomegaly. Foot MRI 02/14/18 0000 Signed Impressions: CONCLUSION: 1. Diffuse subcutaneous edema of the foot with mild enhancement along the dors al aspect of the foot. This could represent cellulitis. No abscess is identifie d and there are no findings to indicate osteomyelitis. 2. There is some degree of osseous fusion at the tibiotalar joint and there is severe degenerative change at the subtalar joint and talonavicular joint. 3. Old healed fracture of the fifth metatarsal. Foot X-Ray 02/13/18 Signed Impressions: CONCLUSION: 1. There is a transverse fracture through the mid fifth metatarsal. Adjacent p eriosteal reaction is present suggesting that it is subacute or chronic. 2. There has been prior arthrodesis of the subtalar joint and tibiotalar joint s with osseous fusion. Hypertrophic osteophytes are present at the talonavicula r joint. Cervical Spine CT 02/12/18 Signed Impressions: CONCLUSION: Unremarkable study except for slight degenerative spondylosis. CT Angiography 02/12/18 Signed Impressions: CONCLUSION: 1. Possible nodules within the thyroid gland mainly on the right side. 2. Slight fatty liver. 3. No definite pulmonary embolus. Physical Exam CONSTITUTIONAL/GENERAL: Awake and alert, and answered some of my questions, NAD SKIN: No jaundice, rashes, or lesions. Skin temperature appropriate. HEAD: Atraumatic. Normocephalic. EYES: Pupils equal and round and reactive. No scleral icterus. No injection or drainage. Fundi not examined. MOUTH: Moist oral mucosa RESPIRATORY/CHEST: Clear to auscultation. Breath sounds equal bilaterally. No wheezes, rales, or rhonchi. GASTROINTESTINAL: Abdomen soft and distended not tender GENITOURINARY: Without palpable bladder distension. MUSCULOSKELETAL: Extremities without clubbing, cyanosis, no significant edema NEUROLOGICAL: awake, alert non verbal, moaning, following commands. Answering my questions PSYCHIATRIC:calm cooperative PermasCath right neck looks okay no evidence of infection Assessment & Plan Remarks Severe Sepsis present on admission Mitral valve endocarditis, MSSA MSSA high grade bacteremia. Bilateral LE cellulitis. Staph epi (+) BC, staph epi from 02/19 with different antibiotic susceptibility from the staph epi 02/22 Ho Rt foot hardware infection MRI w/o e/o osteomyelitis in either feet acute metabolic encephalopathy:sepsis, metabolic. -Improving acute resp failure, doing well post extubation. CAD s/p CABG ARF , On HD - sp Permacath placement - now off HD Persistent coag neg staph bacteremia sp HD catherter removal MS change -improving Recs: cont Ancef @ reduced dose Ancef dose to be adjusted per improving renal fnx We will need full treatment for endocarditis dw with family @ b/d Dw Dr Watts OK to transfer to [place] from [place] Lois Dooley MD Mar 11, 2018 16:27
--- NOTE | 2018-03-11 16:34 | HHI.FF ---
Infusion Therapy Location of Infusion Therapy: [facility] Infusion Therapy Order Patient Information Patient Weight 113.3 kg Diagnosis: Coded Allergies: No Known Allergies (Unverified , 10/21/17) Administer Medication Cefazolin 1 gram IV q 12 hours Start Treatment: Mar 11, 2018 Stop Treatment: Mar 31, 2018 Additional Information Venous access: Peripheral Additional Instructions [x] Peripheral flush and dressing changes per protocol [x] Implanted port and central toll line inspector: * Implanted port: 10 ml Normal Saline followed by 5 ml Heparin 100 units/ml Heparin flush after each use and monthly to maintain. [] May leave port accessed during therapy. [] May leave peripheral site accessed for duration of therapy. [x] If patient has SOB or respiratory distress, check oxygen saturation. If less than 90% or clinical signs of respiratory distress, administer oxygen at 2 L/min. via nasal cannula and notify physician. [x] Anaphylaxis/Reaction orders: * Stop infusion. * Keep IV line open with saline flush. * Notify physician. * Monitor vital signs every 15 minutes until symptoms resolve. * Check Oxygen saturation; Oxygen at 2 L/min. via nasal cannula if less than 90% or clinical signs of respiratory distress. * Administer diphenhydramine (Benadryl) 25 mg IV STAT, (unless patient has received as pre-med). May repeat once, if necessary. * Solu-Cortef 250 mg IVP over 30-60 seconds, use 100 mg vials for each dissolution. * Epinephrine (1mg/1 ml) 0.3 mg subcutaneously or IVP now with any signs of respiratory distress. * Check with physician for new additional pre-med orders if patient is re- challenged or re-treated. [x] May remove PICC line when treatment complete, after confirming with Physician. [x] If the patient is admitted to the hospital, the ED, or transferred via [facility] , complete transfer form including medication reconciliation order sheet. Laboratory Tests Weekly Labs: CBC w/diff, Creatinine Lois Otero MD Mar 11, 2018 16:34
[2018-03-12] MEDS ORDERED: FUROSEMIDE 20 MG TAB PO SCH (09:00)
== END 2018-03-11 18:33 | DRG 870 ==
LOC: NEPC 20:47 → NEDA 23:56 → HIMW 02-13 01:00 → N04B 02-27 13:08
PROVIDERS: ADMIT Family Medicine; ATTEND Family Medicine
PROC: 0T9B70Z Drainage of Bladder with Drainage Device, Via Natural or Artificial Opening (ICD-10-PCS; principal; 2018-02-12)
PROC: 5A1955Z Respiratory Ventilation, Greater than 96 Consecutive Hours (ICD-10-PCS; 2018-02-14)
PROC: 0BH17EZ Insertion of Endotracheal Airway into Trachea, Via Natural or Artificial Opening (ICD-10-PCS; 2018-02-14)
PROC: 0DH67UZ Insertion of Feeding Device into Stomach, Via Natural or Artificial Opening (ICD-10-PCS; 2018-02-14)
PROC: B246ZZ4 Ultrasonography of Right and Left Heart, Transesophageal (ICD-10-PCS; 2018-02-16)
PROC: 05HM33Z Insertion of Infusion Device into Right Internal Jugular Vein, Percutaneous Approach (ICD-10-PCS; 2018-02-17)
PROC: 5A1D70Z Performance of Urinary Filtration, Intermittent, Less than 6 Hours Per Day (ICD-10-PCS; 2018-02-17)
PROC: 05HY33Z Insertion of Infusion Device into Upper Vein, Percutaneous Approach (ICD-10-PCS; 2018-03-03)
DX: A41.01 Sepsis due to Methicillin susceptible Staphylococcus aureus (principal); I21.A1 Myocardial infarction type 2; I33.0 Acute and subacute infective endocarditis; J96.01 Acute respiratory failure with hypoxia; N17.0 Acute kidney failure with tubular necrosis; J96.02 Acute respiratory failure with hypercapnia; G93.41 Metabolic encephalopathy; K56.7 Ileus, unspecified; I50.9 Heart failure, unspecified; I11.0 Hypertensive heart disease with heart failure; E87.2 Acidosis; M62.82 Rhabdomyolysis; L97.409 Non-pressure chronic ulcer of unspecified heel and midfoot with unspecified severity; L97.919 Non-pressure chronic ulcer of unspecified part of right lower leg with unspecified severity; L97.929 Non-pressure chronic ulcer of unspecified part of left lower leg with unspecified severity; L97.319 Non-pressure chronic ulcer of right ankle with unspecified severity; E87.1 Hypo-osmolality and hyponatremia; L03.115 Cellulitis of right lower limb; L03.116 Cellulitis of left lower limb; F01.51 Vascular dementia, unspecified severity, with behavioral disturbance; I08.3 Combined rheumatic disorders of mitral, aortic and tricuspid valves; D69.6 Thrombocytopenia, unspecified; E66.01 Morbid (severe) obesity due to excess calories; E11.621 Type 2 diabetes mellitus with foot ulcer; E11.622 Type 2 diabetes mellitus with other skin ulcer; N40.1 Benign prostatic hyperplasia with lower urinary tract symptoms; I25.2 Old myocardial infarction; I25.10 Atherosclerotic heart disease of native coronary artery without angina pectoris; I25.82 Chronic total occlusion of coronary artery; G89.4 Chronic pain syndrome; E78.5 Hyperlipidemia, unspecified; Z90.49 Acquired absence of other specified parts of digestive tract; W19.XXXA Unspecified fall, initial encounter; Y92.009 Unspecified place in unspecified non-institutional (private) residence as the place of occurrence of the external cause; I70.0 Atherosclerosis of aorta; I70.202 Unspecified atherosclerosis of native arteries of extremities, left leg; M54.2 Cervicalgia; R33.8 Other retention of urine; I45.10 Unspecified right bundle-branch block; E78.00 Pure hypercholesterolemia, unspecified; K21.9 Gastro-esophageal reflux disease without esophagitis; M19.90 Unspecified osteoarthritis, unspecified site; R65.20 Severe sepsis without septic shock; E11.65 Type 2 diabetes mellitus with hyperglycemia; Z68.35 Body mass index [BMI] 35.0-35.9, adult; D64.9 Anemia, unspecified; E27.8 Other specified disorders of adrenal gland; R74.0 Nonspecific elevation of levels of transaminase and lactic acid dehydrogenase [LDH]; Z99.2 Dependence on renal dialysis; Z95.1 Presence of aortocoronary bypass graft; E83.39 Other disorders of phosphorus metabolism; R31.9 Hematuria, unspecified; Z85.038 Personal history of other malignant neoplasm of large intestine; Z79.84 Long term (current) use of oral hypoglycemic drugs; Z87.891 Personal history of nicotine dependence; Z87.11 Personal history of peptic ulcer disease; Z86.73 Personal history of transient ischemic attack (TIA), and cerebral infarction without residual deficits; Z98.1 Arthrodesis status; R56.9 Unspecified convulsions; I87.8 Other specified disorders of veins
CPT/HCPCS: 31500; 36556; 36558; 36600; 70450; 70544; 70547; 70551; 71045; 71275; 72125; 72146; 72148; 73620; 73720; 74018; 74019; 74176; 74177; 74230; 76705; 76937; 77001; 80048; 80053; 80069; 80074; 80185; 80307; 81001; 82010; 82040; 82140; 82306; 82550; 82552; 82570; 82728; 82805; 82948; 83540; 83550; 83605; 83690; 83735; 83880; 83970; 84100; 84132; 84156; 84484; 85007; 85025; 85027; 85384; 85610; 85652; 85730; 86021; 86140; 86160; 86403; 86803; 86850; 86900; 86901; 87040; 87070; 87071; 87077; 87086; 87147; 87186; 87205; 87340; 87493; 87641; 90935; 93005; 93306; 93312; 93320; 93325; 94002; 94003; 94150; 94640; 94664; 94667; 95819; 96365; 96366; 96374; 96375; 99152; 99153; A9579; C1750; C1752; C1769; C9113; J0330; J0690; J0712; J0878; J1170; J1200; J1205; J1580; J1644; J1815; J1940; J2060; J2212; J2248; J2250; J2543; J2700; J2765; J3010; J3370; J3480; J7030; J7040; J7050; J7070; J7120; P9047; Q2009; Q9963; Q9967